=== PATIENT | male | born 1940 ===

== ENCOUNTER 2020-11-19 13:39 | Inpatient (IN) | payer MEDICARE, OTHER ==
[~2020-11-19] VITALS: Ht 182 cm; Wt 82.0 kg
[2020-11-20] MEDS ORDERED: MELATONIN 3 MG TABLET PO PRN (09:30)
[2020-11-20] MEDS ORDERED: LACTULOSE SYRUP 10GM/15ML (ENULOSE) 30ML UDC PO PRN (09:30)
[2020-11-20] MEDS ORDERED: LOPERAMIDE 2 MG (IMODIUM) TABLET PO PRN (09:30)
[2020-11-20] MEDS ORDERED: diphenhydrAMINE 25 MG TAB (BENADRYL) PO PRN (09:30)
[2020-11-20] MEDS ORDERED: DOCUSATE SODIUM 100 MG (COLACE) CAP PO PRN (09:30)
[2020-11-20] MEDS ORDERED: ONDANSETRON 4 MG (ZOFRAN) ORAL DISSOLVE TAB PO PRN (09:30)
[2020-11-20] MEDS ORDERED: FLEET ENEMA ADULT 1 EA BTL PR PRN (09:30)
[2020-11-20] MEDS ORDERED: CALCIUM CARBONATE 500 MG (TUMS) TAB.CHEW PO PRN (09:30)
[2020-11-20] MEDS ORDERED: ACETAMINOPHEN 500 MG TAB (TYLENOL) PO PRN (09:30)
[2020-11-20] MEDS ORDERED: PHEN177S41 MM (10:46)
[2020-11-20] MEDS ORDERED: SILD20TA PO (10:46)
[2020-11-20] MEDS ORDERED: UBID200C31 PO (10:46)
[2020-11-20] MEDS ORDERED: FURO20TA4 PO (10:46)
[2020-11-20] MEDS ORDERED: ACET325C7 NG (10:46)
[2020-11-20] MEDS ORDERED: IPRA3AMP31 IH (10:46)
[2020-11-20] MEDS ORDERED: PANT40TA2 PO (10:46)
[2020-11-20] MEDS ORDERED: ENOX100D4 SQ (10:46)
[2020-11-20] MEDS ORDERED: ROFL250T NG (10:46)
[2020-11-20] MEDS ORDERED: MELA5TAB14 PO (10:46)
[2020-11-20] MEDS ORDERED: DILT30TA NG (10:46)
[2020-11-20] MEDS ORDERED: FOLI0.4T2 PO (10:46)
[2020-11-20] MEDS ORDERED: PRD10T PO (10:46)
[2020-11-20] MEDS ORDERED: LACT1CAP76 PO (10:46)
[2020-11-20] MEDS ORDERED: ATOR20TA66 PO (10:46)
[2020-11-20] MEDS ORDERED: CYAN-41 NG (10:46)
[2020-11-20] MEDS ORDERED: SENN-234 PO (10:46)
[2020-11-20] MEDS ORDERED: ATOR10TA66 PO (10:51)
--- NOTE | 2020-11-20 10:52 | NUR ---
THE MED REC HAS BEEN ENTERED USING THE DISCHARGE ORDERS FROM [facility]. AFTER MEDICATIONS ARE CONTINUED (AND THE PT IS SETTLED) I WILL SPEAK WITH THE PT AND MAKE CHANGES TO THE MED REC/NOTES NEEDED Addendum: 11/25/20 at 1520 by KEKE CORRALES [facility] I SPOKE WITH THE PATIENT'S SHABANA AND WENT THROUGH THE EXTERNAL MED HISTORY TO COMPLETE THIS MED REC. MEDICATIONS THAT HAVE BEEN REMOVED DUE TO THE PATIENT NOT TAKING THEM PRIOR TO [facility]: VITAMIN B-12 DILTIAZEM ENOXAPARIN FOLIC ACID FUROSEMIDE IPRATROPIUM/ALBUTEROL NEBS LACTOBACILLUS PROBIOTIC MELATONIN PANTOPRAZOLE CHLORASEPTIC SPRAY PREDNISONE ROFLUMILAST SENNOSIDES SILDENAFIL UBIDECARENONE MEDICATIONS THAT HAVE BEEN ADDED: ELIQUIS SIMVASTATIN DOXAZOSIN DOCUSATE SODIUM METHYLPREDNISOLONE PROMETHAZINE SYRUP ALBUTEROL INH PT GOT METHYLPREDNISOLONE AND PROMETHAZINE SYRUP ON 09/23/2020 BUT WAS ONLY ABLE TO TAKE ONE DOSE OF EACH BEFORE BEING ADMITTED INTO THE HOSPITAL.
--- NOTE | 2020-11-20 11:10 | NUR ---
JOJO COLONNINOSKADavian admitted to room 229-1, with an admitting diagnosis of IMMOBILITY, on 11/20/20 from [facility] via AMBULANCE/STRETCHER, accompanied by STAFF.JOJO GUZMAN introduced to surroundings, call light, bed controls, phone, TV, temperature control, lights, meal times, smoking policy, visitor policy, side rail policy, bathrooms and showers. Patient Rights given to patient in the handbook.JOJO GUZMAN verbalizes understanding that [facility] is not responsible for the loss or damage to any personal effects or valuables that are kept in the patients posession during their hospitalization. The following Patient Care Plans were discussed with the PT: Discharge Planning, PAIN CONTROL,TESTS AND PROCEDURES AND THERAPY, and PT/OT/ST. JOJO GUZMAN verbalizes understanding of Interdisciplinary Patient Education. Patient and/or family were informed about the Rapid Response Team and its purpose. Patient received Patient Rights Booklet, which includes Privacy Act Statement and Data Collection Information Summary.
[2020-11-20 11:42] VITALS: BP 102/61
[2020-11-20 12:27] VITALS: BP 102/61
--- NOTE | 2020-11-20 12:52 | Physical Therapy Evaluation ---
PT Evaluation-General Medical Diagnosis Admission Date Nov 20, 2020 at 11:10 Medical Diagnosis: debility, covid 19 Onset Date: Nov 20, 2020 Therapy Diagnosis Therapy Diagnosis: impaired mobility, strength, endurance Precautions Precautions/Isolations: Droplet Isolation Referral Physician: Johana Saxena DO Reason for Referral: Evaluation/Treatment Medical History Additional Medical History 09/13 diagnosed COVID+, admitted to hospital ARF with hypoxia, PNA, AFib, and malnutrition Social History Home: Single Level Current Living Status: Spouse Entry Into Home: Level Entry Prior Prior Level of Function SCALE: Activities may be completed with or without assistive devices. 0-Zqiqogwpgz-erhvdxh completes the activity by him/herself with no assistance from a helper. 5-Set-up or Clean-up Assistance-helper sets up or cleans up; patient completes activity. [place] assists only prior to or following the activity. 4-Supervision or Touching Assistance-helper provides verbal cues and/or touching/steadying and/or contact guard assistance as patient completes activity. Assistance may be provided throughout the activity or intermittently. 3-Partial/Moderate Assistance-helper does LESS THAN HALF the effort. [place] lifts, holds or supports trunk or limbs, but provides less than half the effort. 2-Substantial/Maximal Assistance-helper does MORE THAN HALF the effort. [place] lifts or holds trunk or limbs and provides more than half the effort. 8-Mnegvhstb-qhnyew does ALL the effort. Patient does none of the effort to complete the activity. Or, the assistance of 2 or more helpers is required for the patient to complete the activity. If activity was not attempted, code reason: 7-Patient Refused. 9-Not Applicable-not attempted and the patient did not perform the activity before the current illness, exacerbation or injury. 10-Not Attempted due to Environmental Limitations-(lack of equipment, weather restraints, etc.). 88-Not Attempted due to Medical Conditions or Safety Concerns. Bed Mobility: 6 Transfers (B,C,W/C): 6 Gait: 6 Stairs: 6 Indoor Mobility (Ambulation): Independent Stairs: Independent PT Evaluation-Current Subjective Patient in bed pre tx, agrees to PT, no complaints of pain, will be co-treating with OT due to poor patient mobility, strength, endurance, decreased oxygen with activity, safety and reduce risk of falls, coordinate UE and LE during activity. Pt/Family Goals "to get stronger" Objective Patient Orientation: Person, Place, Situation Attachments: Oxygen, Mejia Catheter ROM/Strength ROM Lower Extremities WNL Strength Lower Extremities LLE (hip flexion 2/5, knee flexion 3/5, knee extension 3-/5, dorsiflexion 3/5), RLE (hip flexion 2/5, knee flexion 3/5, knee extension 3-/5, dorsiflexion 3/5) Sensory Vision: Wears Glasses Hearing: Functional Sensation Right Lower Extremit: Intact Sensation Left Lower Extremity: Intact Transfers Roll Left & Right (QC): 3 Sit to Lying (QC): 3 Lying to Sitting/Side of Bed(Q: 3 Sit to Stand (QC): 2 Chair/Rmg-vc-Glqdb Xfer(QC): 2 Toilet Transfer (QC): 2 Car Transfer (QC): 2 Patient can perform bed mobility with min assist, supine <-> sit mod assist, sit <-> stand max assist, transfers max assist, car transfer max assist. Cues for hand placement and positioning, tries to wrap arms around therapist when performing transfers. Gait Does the Patient Walk?: No and Walking Goal IS indicated Walk 10 feet (QC): 88 Walk 50 ft with 2 Turns(QC): 88 Walk 150 ft (QC): 88 Walking 10ft/uneven surface-QC: 88 Wheelchair Training Does the Pt Use a Wheelchair?: Yes Wheel 50 ft with 2 turns (QC): 4 Wheel 150 ft (QC): 88 Type of Wheelchair: Manual Stairs 1 Step (curb) (QC): 88 4 Steps (QC): 88 12 Steps (QC): 88 Balance Sitting Static: Fair Sitting Dynamic: Fair Standing Static: Poor Standing Dynamic: Poor Picking up an Object (QC): 88 Treatment bathing/dressing. PT performed bed mobility and transfers, WC mobility, standing in parallel bars, assist with positioning during bathing and dressing, OT performed bathing and dressing, UE positioning and safety during activity. Assessment/Needs Patient has impaired mobility, strength, endurance. Patient in bed post tx with nurse call, phone, tray, all needs met. Patient is non-ambulatory at this time. Rehab Potential: Fair PT Short Term Goals Short Term Goals Time Frame: Nov 27, 2020 Roll Left & Right: 3 Sit to lyin Lying to sitting on side of be: 3 Sit to stand: 3 Chair/jxr-mr-jukgf transfer: 3 Walk 10 feet: 3 PT Corporate Travel Counselor Goals Senior Living Goals PT Senior Living Goals Time Frame: Dec 11, 2020 Roll Left & Right (QC): 4 Sit to Lying (QC): 4 Lying-Sitting on Side/Bed(QC): 4 Sit to Stand (QC): 4 Chair/Kah-kx-Bsqyh Xfer(QC): 4 Toilet Transfer (QC): 4 Car Transfer (QC): 3 Does the Patient Walk: Yes Walk 10 feet (QC): 3 Walk 50ft with 2 Turns (QC): 3 Walk 150 ft (QC): 88 Walking 10ft on Uneven Surface: 3 1 Step (curb) (QC): 3 4 Steps (QC): 88 12 Steps (QC): 88 Picking up an Object (QC): 88 Wheel 50 feet with 2 turns (QC: 6 Wheel 150 feet: 6 PT Plan Problem List Problem List: Activity Tolerance, Functional Strength, Safety, Balance, Gait, Transfer, Bed Mobility, ROM Treatment/Plan Treatment Plan: Continue Plan of Care Treatment Plan: Bed Mobility, Education, Functional Activity Leti, Functional Strength, Group Therapy, Gait, Safety, Therapeutic Exercise, Transfers Treatment Duration: Dec 11, 2020 Frequency: Modified Program (IRF) Estimated Hrs Per Day: 1 hour per day Patient and/or Family Agrees t: Yes Due to a covid 19 viral infection, the patinet has deficits that warrant inpatient acute rehab. The patient will clearly benefit from intensive PT and OT, however, due to the patient's observed endurance and therapy considerations, he may not be able to tolerate the full 3 hours of scheduled therapy. Therefore, he will be scheduled for as much therapy as he can tolerate with intentional rest breaks, shortened sessions, including providing therapy across 6 to 7 days. As the patient tolerates, the intensity, frequency, and duration of his therapy program will be increased. Safety Risks/Education Patient Education: Transfer Techniques, Correct Positioning, W/C Management, Safety Issues Teaching Recipient: Patient Teaching Methods: Demonstration, Discussion Response to Teaching: Reinforcement Needed Discharge Recommendations Plan Patient will perform bed mobility and transfer training, balance and endurance training, functional strengthening, stair training, gait training, and education, to improve functional mobility and independence at home. Therapy Discharge Recommendati: Home & Family Time/GCodes Time In: 1110 Time Out: 1200 Total Billed Treatment Time: 40 Total Billed Treatment 1 visit EVM 10' FA 30' PT eval from [id number], OT eval from [id number], co-treat from [id number] CULLEN WORTHINGTON PT Nov 20, 2020 12:52
[2020-11-20 13:10] VITALS: BP 102/61
[2020-11-20] MEDS ORDERED: PHENOL MM PRN (13:15)
[2020-11-20] MEDS ORDERED: SENNOSIDES 8.6 MG (SENOKOT) TAB PO PRN (13:15)
[2020-11-20] MEDS ORDERED: NON-FORMULARY MEDICATION 1 EA EA (Acetaminophen (Tylenol) 650 MG) NG PRN (13:15)
--- NOTE | 2020-11-20 13:15 | PM&R Post Admission Assessment ---
PM&R Date of Visit: Nov 20, 2020 Time of Visit: 13:15 History of Present Illness CC: Critical illness myopathy HPI: This is an 80yoWM who presented to the IRF from [place] where [place] [facility] [place]20 with dyspnea after diagnosed with COVID-19 on 09/13/20. He remained on Vapotherm but then was intubated and maintained on vent for 2 weeks and is now on O2 at 5L/min but increasing to 7L/min on exertion. He received CVP and Remdesivir along with Levophed during that hospital stay. Patient did have episode of AF on 10/01/20 but that resolved on Cardizem drip and Dig bolus. Patient reports urinary retention and remains on a catheter in-dwelling so I did speak to Dr Marsh who has graciously accepted the consultation. Bowel incontinence is reported by the patient. Patient is very weak. 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 He smoked for 9 years and quit 60 yrs ago. Patient was admitted to the ARU during this COVID-19 emergency. The ARU is the best and most appropriate post-acute care setting for this patient at this current time. Patient meets IRF admission criteria, however will be unable to tolerate 3 hours of therapy/5 days per week. This patients individualized intensive rehabilitation plan is to receive 2 hours of therapy per day, by receiving 1 hour of PT and 1 hour of OT 5 out of 7 days per the patients week. As an interdisciplinary team, we will discuss this patients ability to tolerate an increase in the intensity of therapy to be provided throughout the patients stay. Past Mhprdzs-Zdbjbp-Nvoups Hx Past Med/Social Hx: Reviewed Nursing Past Med/Soc Hx, Reviewed and Corrections made Patient Social History Marrital Status: Employed/Student: retired Alcohol Use: Denies Use Smoking Status: Former Smoker (briefly) Recent Foreign Travel: No Contact w/other who traveled: No Recent Infectious Disease Expo: No Past Medical History Respiratory: Pneumonia COVID-19 09/13/20 Cardiac: Atrial Fibrillation (10/01/20 when intubated) Genitourinary: Benign Prostatic Hyperpl urinary retention Prior Level of Function Bed Mobility: 6 Transfers: 6 Gait: 6 Stairs: 6 Indoor Mobility (Ambulation): Independent Stairs: Independent Current Level of Fuctioning Roll Left to Right: 3 Sit to Lyin Lying to Sitting/Side of Bed: 3 Sit to Stand: 2 Chair/Yli-nq-Whjzp Xfer: 2 Car Transfer: 2 Does the Patient Walk: No and Walking Goal IS indicated Walk 10 feet: 88 Walk 50 ft with 2 Turns: 88 Walk 150 ft: 88 Walking 10ft on uneven surface: 88 Does the Pt Use a Wheelchair: Yes Wheel 50 ft with 2 turns: 4 Wheel 150 ft: 88 Type of Wheelchair: Manual 1 Step (curb): 88 4 Steps: 88 12 Steps: 88 Picking up an Object: 88 PM&R Allergy/Meds/Data Review Allergies Coded Allergies: No Allergy Information Available (Unverified , 11/20/20) Home Medications Scheduled Atorvastatin Calcium (Atorvastatin Calcium), 20 MG PO DAILY, (Reported) Cyanocobalamin (Vitamin B-12) (Vitamin B-12), 1,000 MCG NG DAILY, (Reported) Diltiazem HCl (Diltiazem HCl), 30 MG NG TID, (Reported) Enoxaparin Sodium (Enoxaparin Sodium), 94 MG SQ BID, (Reported) Folic Acid (Folic Acid), 1.2 MG PO DAILY, (Reported) Furosemide (Furosemide), 40 MG PO DAILY, (Reported) Ipratropium/Albuterol Sulfate (Iprat-Albut 0.5-3(2.5) mg/3 ml), 3 ML IH QID, (Reported) Lactobacillus Acidophilus/Pect (Acidophilus-Pectin Capsule), 1 EACH PO BID, (Re ported) Melatonin (Melatonin), 5 MG PO HS, (Reported) Pantoprazole Sodium (Protonix), 40 MG PO DAILY, (Reported) Prednisone (Prednisone), 30 MG PO DAILY, (Reported) Roflumilast (Daliresp), 250 MCG NG DAILY, (Reported) Sildenafil Citrate (Revatio), 20 MG PO TID, (Reported) Ubidecarenone (Coenzyme Q-10), 200 MG PO DAILY, (Reported) Scheduled PRN Acetaminophen (Tylenol), 650 MG NG Q6H PRN for PAIN-MILD (1-4) OR TEMPATURE, (Reported) Phenol (Chloraseptic), 1 SPRAY MM QID PRN for SORE THROAT, (Reported) Sennosides (Senna), 8.6 MG PO DAILY PRN for CONSTIPATION-5TH LINE, (Reported) Discontinued Medications Atorvastatin Calcium (Atorvastatin Calcium), 20 MG PO DAILY, (Reported) Discontinued Reason: No Longer Taking Current Medications Current Medications Reviewed Review of Systems Constitutional: see HPI, malaise, weakness EENTM: no symptoms reported Respiratory: dyspnea on exertion, short of breath Cardiovascular: no symptoms reported Gastrointestinal: other (incontinence) Genitourinary: other (retention) Musculoskeletal: back pain Skin: no symptoms reported Psychiatric/Neurological: Anxiety, Depressed All Other Systems Reviewed Negative Unless Noted: Yes Physical Exam Physical Exam Vital Signs Vital Signs - First Documented 11/20/20 12:27 Temp 36.8 Pulse 95 Resp 20 B/P (MAP) 102/61 (75) Pulse Ox 3 O2 Delivery Nasal Cannula O2 Flow Rate 3.00 Capillary Refill : Height, Weight, BMI Height: '" Weight: lbs. oz. kg; 23.39 BMI Method: General Appearance: No Apparent Distress, WD/WN, Chronically ill, Thin Eyes: Bilateral Eye Normal Inspection, Bilateral Eye PERRL HEENT: PERRL/EOMI, Normal ENT Inspection, Pharynx Normal Neck: Full Range of Motion, Normal Inspection, Non Tender, Supple, Carotid Bruit Respiratory: Chest Non Tender, Lungs Clear, No Accessory Muscle Use, No Respiratory Distress, Decreased Breath Sounds Cardiovascular: Regular Rate, Rhythm, No Edema, No Gallop, No JVD, No Murmur, Normal Peripheral Pulses Gastrointestinal: Normal Bowel Sounds, No Organomegaly, No Pulsatile Mass, Non Tender, Soft Back: Normal Inspection, No CVA Tenderness, No Vertebral Tenderness Extremity: Normal Capillary Refill, Normal Inspection, Normal Range of Motion, Non Tender, No Calf Tenderness, No Pedal Edema Neurologic/Psychiatric: Alert, Oriented x3, No Motor/Sensory Deficits, Normal Mood/Affect, Motor Weakness (generalized 2/5 lower extremities, 3/5 upper extremities) Skin: Normal Color, Warm/Dry Lymphatic: No Adenopathy PM&R Medical Assessment & Plan REHAB/MEDICAL ASSESSMENT AND PLAN: REHAB IMPAIRMENT GROUP: Critical illness myopathy ETIOLOGIC DIAGNOSIS: Critical illness myopathy The comorbidities that impact the patients function and/or functional outcome by: advanced age, severe myopathy, urinary retention requiring catheter, bowel incontinence REHAB PLAN: The patient is being admitted to our comprehensive inpatient rehabilitation facility and can tolerate the intensity of service consisting of at least: 180 minutes of therapy a day, 5 out of 7 days a week Rehab treatment will consist of: PT OT will focus on regaining function in order to regain enough strength to ambulate and regain ADL's in order to return home. The patient/family has a good understanding of our discharge process and will benefit from an interdisciplinary inpatient rehabilitation program. The patient has potential to make improvement and is in need of at least two of the following multidisciplinary therapies including but not limited to physical, occupational, speech, and prosthetics and orthotics. Additionally the patient will need services from respiratory, nutritional services, wound care, psychology, etc. (Customize this to each patient). Given the patients complex condition and risk of further medical complications, rehabilitation services cannot be safely or effectively provided at a lower level of care such as a retirement facility. BARRIERS TO DISCHARGE: Advanced age with poor reserve ESTIMATED LOS: 14 days DISPOSITION: Home RELEVANT CHANGES SINCE PREADMISSION SCREENING: I have compared the patients medical and functional status at the time of the preadmission screening and there are: no changes PROGNOSIS: Guarded REHABILITATION GOALS: 1. PT OT will focus on regaining function in order to regain enough strength to ambulate and regain ADL's in order to return home. All the above goals were reviewed with the patient and he/she is in agreement. By signing this document, I acknowledge that I have personally performed a full physical examination on this patient within 24 hours of admission to this inpatient rehabilitation facility and have determined the patient to be able to tolerate the above course of treatment at an intensive level for a reasonable period of time. I will be completing a detailed individualized Plan of Care for this patient by day #4 of the patients stay based upon the Preadmission Screen, the Post-Admission Evaluation, and the therapy evaluations. Admission Dx/Comorbidities: (1) Myopathy ICD Codes: G72.9 - Myopathy, unspecified (2) COVID-19 ICD Codes: U07.1 - COVID-19 (3) Hypoxia ICD Codes: R09.02 - Hypoxemia (4) Urinary retention ICD Codes: R33.9 - Retention of urine, unspecified (5) Mejia catheter in place ICD Codes: Z97.8 - Presence of other specified devices (6) BPH (benign prostatic hyperplasia) ICD Codes: N40.0 - Benign prostatic hyperplasia without lower urinary tract symptoms (7) Bowel incontinence ICD Codes: R15.9 - Full incontinence of feces (8) Supplemental oxygen dependent ICD Codes: Z99.81 - Dependence on supplemental oxygen (9) Advanced age ICD Codes: R54 - Age-related physical debility (10) Frailty ICD Codes: R54 - Age-related physical debility Assessment/Plan Assessment and Plan Assess & Plan/Chief Complaint Assessment: Myopathy COVID-19 PNA Urinary retention Mejia cath in place Bowel incontinence Hypoxia O2 dependent BPH Frail Advanced age Plan: IRF protocol but 120 minutes per day to accommodate hypoxia at activity [place] meds Melatonin at night BARB COLLINS DO Nov 20, 2020 13:15
--- NOTE | 2020-11-20 13:27 | Occupational Therapy Eval ---
OT Evaluation-General/PLF Medical Diagnosis Admission Date Nov 20, 2020 at 11:10 Medical Diagnosis: critical illness myopathy Onset Date: Sep 13, 2020 Therapy Diagnosis Therapy Diagnosis: weakness, decreased ADL status Precautions Precautions/Isolations: Droplet Isolation Referral Physician: Johana Saxena DO Referral Reason: Evaluation/Treatment Medical History Current History 09/13 diagnosed COVID+, admitted to hospital ARF with hypoxia, PNA, AFib, and malnutrition. 09/28 intubated. Pt transferred to [facility] 11/20/2020 for continued medication management and skilled therapies. Social History Home: Single Level Current Living Status: Spouse Entry Into Home: Level Entry ADL-Prior Level of Function SCALE: Activities may be completed with or without assistive devices. 3-Pnnizryjwk-ybhvxwq completes the activity by him/herself with no assistance from a helper. 5-Set-up or Clean-up Assistance-helper sets up or cleans up; patient completes activity. [place] assists only prior to or following the activity. 4-Supervision or Touching Assistance-helper provides verbal cues and/or touching/steadying and/or contact guard assistance as patient completes activity. Assistance may be provided throughout the activity or intermittently. 3-Partial/Moderate Assistance-helper does LESS THAN HALF the effort. [place] lifts, holds or supports trunk or limbs, but provides less than half the effort. 2-Substantial/Maximal Assistance-helper does MORE THAN HALF the effort. [place] lifts or holds trunk or limbs and provides more than half the effort. 5-Hwdiqohgl-jvqzau does ALL the effort. Patient does none of the effort to complete the activity. Or, the assistance of 2 or more helpers is required for the patient to complete the activity. If activity was not attempted, code reason: 7-Patient Refused. 9-Not Applicable-not attempted and the patient did not perform the activity before the current illness, exacerbation or injury. 10-Not Attempted due to Environmental Limitations-(lack of equipment, weather restraints, etc.). 88-Not Attempted due to Medical Conditions or Safety Concerns. ADL PLOF Comments Pt independent with all ADLs and functional mobility at PLOF, without AD/AE. Self Care: Independent Functional Cognition: Independent DME/Equipment: Tub/Shower OT Current Status Subjective Pt agreeable to OT evaluation and PT/OT cotreat. Mental Status/Objective Patient Orientation: Person, Place, Time, Situation Attachments: Oxygen (3L) Current Glasses/Contacts: Yes Hearing Aids: No Dentures/Partials: No Hand Dominance: Right Upper Extremity ROM WFL Upper Extremity Coordination WFL Upper Extremity Sensation Pt denies tingling/numbness Upper Extremity Strength grossly 3/5 ADL-Treatment Eating (QC): 7 Oral Hygiene (QC): 7 Shower/Bathe Self (QC): 1 (Pt able to wash BUEs, chest, abdomen. Required assist with all other parts, assist x2.) Upper Body Dressing (QC): 3 (Mod A with doffing/donning dry chain puller shirt.) Lower Body Dressing (QC): 1 (assist x2, pt required assist with threading and pant hike) On/Off Footwear (QC): 1 (total assist) Toileting Hygiene (QC): 1 (based on clinical judgement, pt would require x2 assist with task, and assist with clothing management and hygiene) Other Treatments OT evaluation complete, then OT/PT cotreat due to skill of 2 clinicians required which a rehabilitation clerk could not perform in order to coordinate UE/LEs, and due to pt's limitations in strength, endurance, mobility, and ambulation. OT focused on UE placement, cues for sequencing and safety, and ADLs, PT focused on LE placement gross overall movements, and mobility. Pt transferred supine to sit EOB, then max A SPT to w/c. Pt self-propelled w/c to therapy gym, requiring freq uent restbreaks due to SOA. Pt completed x1 stand at parallel bars, max A sit to stand, with 2 therapist assist. Pt then taken back to his room, transferring to bed in order to complete sponge bath and dressing. Pt required frequent rest breaks throughout session, and cues with each transfer for proper hand placement. Post tx, pt laying in bed, call light in reach and all needs met. Education OT Patient Education: Correct positioning, Energy conservation, Modified ADL techniques, Progress toward Goal/Update tx plan, Purpose of tx/functional activities, Rehab process Teaching Recipient: Patient Teaching Methods: Discussion Response to Teaching: Verbalize Understanding OT Short Term Goals Short Term Goals Time Frame: Dec 11, 2020 Shower/bathe self: 4 Upper body dressin Lower body dressin OT Fdc Goals Floor Plan Adjuster Goals Time Frame: Dec 20, 2020 Eating (QC): 6 Oral Hygiene (QC): 6 Toileting Hygiene (QC): 6 Shower/Bathe Self (QC): 6 Upper Body Dressing (QC): 6 Lower Body Dressing (QC): 6 On/Off Footwear (QC): 6 Additional Goals: 1-Demonstrate ADL Tasks, 2-Verbalize Understanding, 3- ImproveStrength/Leti 1=Demonstrate adherence to instructed precautions during ADL tasks. 2=Patient will verbalize/demonstrate understanding of assistive devices/modifications for ADL. 3=Patient will improve strength/tolerance for activity to enable patient to perform ADL's. OT Education/Plan Problem List/Assessment Assessment: Decreased Activ Tolerance, Decreased UE Strength, Impaired Funct Balance, Impaired I ADL's, Impaired Self-Care Skills Discharge Recommendations Plan/Recommendations: Continue POC Treatment Plan/Plan of Care Treatment,Training & Education: Yes Patient would benefit from OT for education, treatment and training to promote independence in ADL's, mobility, safety and/or upper extremity function for ADL's. Plan of Care: ADL Retraining, Functional Mobility, Group Exercise/Act as Ind, UE Funct Exercise/Act Treatment Duration: Dec 20, 2020 Frequency: Modified Program (IRF) Estimated Hrs Per Day: 1 hour per day Rehab Potential: Fair Due to a COVID-19 viral infection, the patient has deficits that warrant inpatient acute rehab. The patient will clearly benefit from intensive PT and OT, however, due to the patient's observed endurance and therapy considerations, he may not be able to tolerate the full 3 hours of scheduled therapy. Therefore, he will be scheduled for as much therapy as he can tolerate with intentional rest breaks, shortened sessions, including providing therapy across 6 to 7 days. As the patient tolerates, the intensity, frequency, and duration of his therapy program will be increased. Time/GCodes Start Time: 11:20 Stop Time: 12:00 Total Time Billed (hr/min): 40 Billed Treatment Time OT eval [id number], Cotreat [id number] 1, EVM (10'), ADL (15'), FA (15') BRENDA BLANOC OT Nov 20, 2020 13:27
[2020-11-20] MEDS ORDERED: CHLORASEPTIC SPRAY 177 ML LIQUID MC PRN (13:30)
[2020-11-20] MEDS ORDERED: FLU QUAD HIGH DOSE 240 MCG/0.7 ML 2020-21 (FLUZONE) IM ONE (13:45)
--- NOTE | 2020-11-20 14:01 | Physical Therapy Daily Note ---
PT Daily Note-Current Subjective Patient in bed pre tx, agrees to PT, has no complaints of pain at rest. Will be co-treating with OT due to poor patient mobility, strength, endurance, balance, safety and decrease fall risk, coordinate UE and LE during activity. Appearance Paitent in bed post tx with nurse call, phone, tray, all needs met. Mental Status Patient Orientation: Person, Place, Situation Attachments: Oxygen, Mejia Catheter Transfers SCALE: Activities may be completed with or without assistive devices. 9-Ofvtxgsxja-cjmsdan completes the activity by him/herself with no assistance from a helper. 5-Set-up or Clean-up Assistance-helper sets up or cleans up; patient completes activity. [place] assists only prior to or following the activity. 4-Supervision or Touching Assistance-helper provides verbal cues and/or touching/steadying and/or contact guard assistance as patient completes activity. Assistance may be provided throughout the activity or intermittently. 3-Partial/Moderate Assistance-helper does LESS THAN HALF the effort. [place] lifts, holds or supports trunk or limbs, but provides less than half the effort. 2-Substantial/Maximal Assistance-helper does MORE THAN HALF the effort. [place] lifts or holds trunk or limbs and provides more than half the effort. 4-Dyaytpjnz-hlpgbr does ALL the effort. Patient does none of the effort to complete the activity. Or, the assistance of 2 or more helpers is required for the patient to complete the activity. If activity was not attempted, code reason: 7-Patient Refused. 9-Not Applicable-not attempted and the patient did not perform the activity before the current illness, exacerbation or injury. 10-Not Attempted due to Environmental Limitations-(lack of equipment, weather restraints, etc.). 88-Not Attempted due to Medical Conditions or Safety Concerns. Roll Left & Right (QC): 3 Practice bed mobility and rolling from side to side for changing and cleaning BM, has to roll from side to side a few times, also transfer from his bed to another air mattress bed for better pressure relief. Treatments PT performed bed mobility and rolling, OT performed cleaning and UE positioning. Assessment Current Status: Fair Progress Patient was able to roll with only min assist. PT Short Term Goals Short Term Goals Time Frame: Nov 27, 2020 Roll Left & Right: 3 Sit to lyin Lying to sitting on side of be: 3 Sit to stand: 3 Chair/lhy-ab-cbaey transfer: 3 Walk 10 feet: 3 PT Detention Goals Detention Goals PT Police Captain Goals Time Frame: Dec 11, 2020 Roll Left & Right (QC): 4 Sit to Lying (QC): 4 Lying-Sitting on Side/Bed(QC): 4 Sit to Stand (QC): 4 Chair/Gvd-jd-Dspvd Xfer(QC): 4 Toilet Transfer (QC): 4 Car Transfer (QC): 3 Does the Patient Walk: Yes Walk 10 feet (QC): 3 Walk 50ft with 2 Turns (QC): 3 Walk 150 ft (QC): 88 Walking 10ft on Uneven Surface: 3 1 Step (curb) (QC): 3 4 Steps (QC): 88 12 Steps (QC): 88 Picking up an Object (QC): 88 Wheel 50 feet with 2 turns (QC: 6 Wheel 150 feet: 6 PT Plan Problem List Problem List: Activity Tolerance, Functional Strength, Safety, Balance, Gait, Transfer, Bed Mobility, ROM Treatment/Plan Treatment Plan: Continue Plan of Care Treatment Plan: Bed Mobility, Education, Functional Activity Leti, Functional Strength, Group Therapy, Gait, Safety, Therapeutic Exercise, Transfers Treatment Duration: Dec 11, 2020 Frequency: Modified Program (IRF) Estimated Hrs Per Day: 1 hour per day Patient and/or Family Agrees t: Yes Safety Risks/Education Patient Education: Correct Positioning, Safety Issues Teaching Recipient: Patient Teaching Methods: Demonstration, Discussion Response to Teaching: Reinforcement Needed Time/GCodes Time In: 1330 Time Out: 1350 Total Billed Treatment Time: 20 Total Billed Treatment 1 visit FA 20CULLEN KOHLER PT Nov 20, 2020 14:01
--- NOTE | 2020-11-20 14:02 | Occupational Ther Daily Note ---
OT Current Status-Daily Note Subjective Pt alert, lying in bed. Pt agrees to therapy. No c/o pain. Mental Status/Objective Patient Orientation: Person, Place, Time, Situation Attachments: Mejia Catheter, IV, Oxygen ADL-Treatment Therapy Code Descriptions/Definitions Functional [place] Measure: 0=Not Assessed/NA 4=Minimal Assistance 1=Total Assistance 5=Supervision or Setup 2=Maximal Assistance 6=Modified [place] 3=Moderate Assistance 7=Complete IndependenceSCALE: Activities may be completed with or without assistive devices. 1-Upmpxjqsuz-odksqkz completes the activity by him/herself with no assistance from a helper. 5-Set-up or Clean-up Assistance-helper sets up or cleans up; patient completes activity. [place] assists only prior to or following the activity. 4-Supervision or Touching Assistance-helper provides verbal cues and/or touching/steadying and/or contact guard assistance as patient completes activity. Assistance may be provided throughout the activity or intermittently. 3-Partial/Moderate Assistance-helper does LESS THAN HALF the effort. [place] lifts, holds or supports trunk or limbs, but provides less than half the effort. 2-Substantial/Maximal Assistance-helper does MORE THAN HALF the effort. [place] lifts or holds trunk or limbs and provides more than half the effort. 4-Mlhmalfsz-guvshq does ALL the effort. Patient does none of the effort to complete the activity. Or, the assistance of 2 or more helpers is required for the patient to complete the activity. If activity was not attempted, code reason: 7-Patient Refused. 9-Not Applicable-not attempted and the patient did not perform the activity before the current illness, exacerbation or injury. 10-Not Attempted due to Environmental Limitations-(lack of equipment, weather restraints, etc.). 88-Not Attempted due to Medical Conditions or Safety Concerns. Other Treatment Co-treat with PT, skills of 2 clinicians required for skilled instruction and care due to extreme SOA with O2 levels below 80 with exertion, recovery breaks frequently required and decreased mobility. PT focusing on bed mobility and B LE strengthening. OT focusing on bed mobility and B UE strengthening. Pt has WNL AROM of B UE though weakness throughout. Pt dependent with bed mobility and functional mobility. After session, pt lying in bed with call light/phone in reach. All needs met in room. OT Short Term Goals Short Term Goals Time Frame: Dec 11, 2020 Shower/bathe self: 4 Upper body dressin Lower body dressin OT Hanger Goals Care Home Goals Time Frame: Dec 20, 2020 Eating (QC): 6 Oral Hygiene (QC): 6 Toileting Hygiene (QC): 6 Shower/Bathe Self (QC): 6 Upper Body Dressing (QC): 6 Lower Body Dressing (QC): 6 On/Off Footwear (QC): 6 Additional Goals: 1-Demonstrate ADL Tasks, 2-Verbalize Understanding, 3- ImproveStrength/Leti 1=Demonstrate adherence to instructed precautions during ADL tasks. 2=Patient will verbalize/demonstrate understanding of assistive devices/modifications for ADL. 3=Patient will improve strength/tolerance for activity to enable patient to perform ADL's. OT Education/Plan Problem List/Assessment Assessment: Decreased Activ Tolerance, Decreased UE Strength, Dependent Transfers, Impaired Bed Mobility, Impaired Coordination, Impaired Funct Balance, Impaired Self-Care Skills, Restricted Funct UE ROM Discharge Recommendations Plan/Recommendations: Continue POC Treatment Plan/Plan of Care Patient would benefit from OT for education, treatment and training to promote independence in ADL's, mobility, safety and/or upper extremity function for ADL's. Plan of Care: ADL Retraining, Functional Mobility, Group Exercise/Act as Ind, UE Funct Exercise/Act Treatment Duration: Dec 20, 2020 Frequency: At least 5 of 7 days/Wk (IRF) (COVID -19 waiver) Rehab Potential: Fair Time/GCodes Start Time: 13:30 Stop Time: 13:50 Total Time Billed (hr/min): 20 Billed Treatment Time 1 visit-FA 1 (20 min) VIOLET BACA Nov 20, 2020 14:02
--- NOTE | 2020-11-20 14:43 | ST Cognitive Linguistic Eval ---
Speech Evaluation-General Medical Diagnosis critical illness myopathy Onset Date: Sep 13, 2020 Therapy Diagnosis Therapy Diagnosis: Cognitive-communication Precautions Precautions: Aspiration Precautions/Isolations: Aspiration, Droplet Isolation, Standard Precautions Referral Referring Physician: Dr. Saxena Social History Current Living Status: Spouse Speech PLF-Current Status Prior Level of Function Patient lives at home with his in [place], [place] where he was independent for his daily needs. Subjective Patient was cooperative with the cognitive assessment. Language Eval: Auditory Comprehends Simple Yes/No Ques: Functional Indent/Objects Multiple Hatch: Functional Ident/Pics in Multiple Hatch: Functional Follows 1-Step Commands: Functional Follows Complex Directions: Functional Follows General Conversations: Functional Language Eval: Verbal Language Completes Spontaneous Greeting: Functional Produces Auto, Serial Info: Functional Imitates Simple Words/Phrases: Functional Word Finding: Functional Requests Basic Needs: Functional States Basic Personal Info: Functional Expresses Complex Ideas: Functional Objective Cognitive Domain Attention: WNL Memory: WNL Problem Solving: Functional Executive Functions: WNL Visuospatial Skills: WNL Composite Severity Rating: WNL Clock Drawing Severity Rating: WNL Objective Formal/Standardized Tests [facility] Mental Status ([facility]) Results 27/30, within normal range of function Oral Motor/Speech Production Within Normal Limits Impression Patient is a pleasant 80 y/o man who was admitted to the [facility] s/p COVID-19 since September 13, 2020. Patient was given the SLUMS at bedside with a score of 27/30 obtained. Patient's score is within normal range of function. Patient's diet level was also addressed with advance within the past two days. Patient states he is doing well with his current diet level. Patient does not require further ST services at this time. Speech Patient Assess Expression of Ideas/Wants: Expression (4) Understanding Verbal Content: Understands (4) Brief Interview-Mental Status: Yes Repetition of Three Words: Three (3) Temporal Orientation: Year: Correct (3) Temporal Orientation: Month: Accurate within 5 days(2) Temporal Orientation: Day: Correct (1) Recall : Wear to say "Sock": Yes, no cue required (2) Recall : Color: Yes, after cueing (1) Recall : Bed: Yes, no cue required (2) Memory/Recall Ability: Current season, That he or she is in a hsp/hsp unit Speech-Plan Patient/Family Goals Patient/Family Goals: Patient plans on returning to his home upon discharge. Treatment Plan Speech Therapy Treatment Plan: Discontinue ST Treatment Duration: Nov 20, 2020 Frequency: 1 time per week Estimated Hrs Per Day: .25 hour per day Rehab Potential: Fair Barriers to Learning: Patient's recent severe illness, age Pt/Family Agrees to Plan: Yes Safety Risks/Education Teaching Recipient: Patient Teaching Methods: Discussion Response to Teaching: Verbalize Understanding Education Topics Provided: Safety within his room and with oral intake Time Speech Therapy Time In: 14:30 Speech Therapy Time Out: 14:45 Total Billed Time: 15 Billed Treatment Time 1, SPSNDCOMP PROSPER Soto Nov 20, 2020 14:43
[2020-11-20] MEDS: RT-ALBUTEROL/IPRATROPIUM 3 ML (DUONEB) VIAL IH SCH ×2 (15:48→21:26)
--- NOTE | 2020-11-20 16:24 | CONSULTATION REPORT ---
DATE OF SERVICE: 11/20/2020 ATTENDING PHYSICIAN: Dr. Saxena. SUMMARY: An 80-year-old white man admitted to the rehab unit after recovery for his COVID that caused respiratory failure. He has a Mejia catheter apparently failed trial of voiding in the institution before coming here. He is not on any medication for bladder or prostate. He denies any voiding symptoms in the past except for some nocturia x2-3, has never used any medicine for prostate or bladder. Has never had surgery on the prostate or bladder. IMPRESSION: Urinary retention. PLAN: We will start him on Flomax 0.4 mg daily with at least 3 days, then we will give him trial of voiding probably next Wednesday. Job ID: [id number] DocumentID: [id number] Dictated Date: 11/20/2020 15:47:00 Straw Hat Brim Raiser Operator Date: 11/20/2020 16:23:36 Dictated By: DENTON MA MD
[2020-11-20] MEDS: SILDENAFIL 20 MG (REVATIO) TAB NON-FORMULARY PO SCH ×2 (16:42→21:25)
[2020-11-20 17:14] VITALS: BP 102/66
[2020-11-20] MEDS: TAMSULOSIN 0.4 MG (FLOMAX) CAP PO SCH (19:16)
[2020-11-20] MEDS: polyethylene glycoL POWDER 17 GM (MIRALAX) PACK PO SCH (19:21)
--- NOTE | 2020-11-20 20:50 | Individualized Plan of Care ---
Individualized Plan of Care Rehab Nursing IPOC Order Admission Date Nov 20, 2020 at 11:10 Current Orders Orders Admission Order(Inpt,Obs,Sdc) (11/20/20 09:29) Vital Signs: Per Unit Policy ( 08,16,00 (11/20/20 09:29) Cecilio Bateman 09,21 (11/20/20 09:29) Sequential Compression Device Q4H (11/20/20 09:29) Roller Embosser-Inpt Rehab Con (11/20/20 09:29) Rehab Nursing Orders-Ipoc (11/20/20 09:29) Physical Therapy Rehab Orders (11/20/20:29) Occupational Therapy Rehab Ord (11/20/20:29) Speech Therapy Rehab Orders (11/20/20:) Cbc With Automated Diff (11/21/20 06:00) Comprehensive Metabolic Panel (11/21/20 06:00) Intake & Output 06,14,22 (11/20/20 09:29) Precautions (Aru) (11/20/20 09:29) Weekly Weight WEEK (11/20/20 09:29) Rehab-Intensity Of Therapy (11/20/20 09:29) Initiate Admission Nursing Pro .admission (11/20/20 09:29) Acetaminophen Tablet (Tylenol Tablet) (11/20/20 09:30) Alprazolam Tablet (Xanax Tablet) (11/20/20 09:30) Calcium Carbonate Chew Tablet (Antacid C (11/20/20 09:30) Diphenhydramine Tablet (Benadryl Tablet) (11/20/20 09:30) Docusate Sodium Capsule (Colace Capsule) (11/20/20 21:00) Docusate Sodium Capsule (Colace Capsule) (11/20/20 09:30) Bisacodyl Suppository (Dulcolax Supposit (11/20/20 09:30) Lactulose Oral Solution (Enulose Oral So (11/20/20 09:30) Na Phos/Na Biphos Enema (Fleet Enema Trevon (11/20/20 09:30) Guaifenesin/Codeine Syrup (Robitussin Ac (11/20/20 09:30) Loperamide Tablet (Imodium Tablet) (11/20/20 09:30) Melatonin Tablet (Melatonin Tablet) (11/20/20 09:30) Polyethylene Glycol Powder Pkt (Miralax (11/20/20 21:00) Ondansetron Oral Dissolve Tab (Zofran (11/20/20 09:30) Senna S Tablet (Senokot S Tablet) (11/20/20 21:00) Admission Arrival Bed Request (11/20/20 11:22) Isolation Central Supply Req (11/20/20 11:33) Dys2 Mechanically Altered (11/20/20 Lunch) Consult Urology (11/20/20 13:03) Atorvastatin Tablet (Lipitor Tablet) (11/21/20 09:00) Cyanocobalamin Tablet (Vitamin B-12 Tabl (11/21/20 09:00) Diltiazem Tablet (Cardizem Tablet) (11/20/20 21:00) Furosemide Tablet (Lasix Tablet) (11/21/20 09:00) Albuterol/Ipra Inhalation Soln (Duoneb I (11/20/20 15:00) Lactobacillus Acidophilus Cap (Acidophil (11/20/20 21:00) Pantoprazole Tablet (Protonix Tablet) (11/21/20 09:00) Prednisone Tablet (Deltasone Tablet) (11/21/20 08:00) Sennosides Tablet (Senokot Tablet) (11/20/20 13:15) (Nf) Acetaminophen (Tylenol) (11/20/20 13:15) (Nf) Folic Acid (11/21/20 09:00) (Nf) Melatonin (11/20/20 21:00) (Nf) Phenol (Chloraseptic) (11/20/20 13:15) (Nf) Roflumilast (Daliresp) (11/21/20 09:00) (Nf) Sildenafil Citrate (Revatio) (11/20/20 21:00) (Nf) Ubidecarenone (Coenzyme Q-10) (11/21/20 09:00) Melatonin Tablet (Melatonin) (11/20/20 21:00) Sildenafil Tablet (Non-Form) (Revatio Ta (11/20/20 14:00) Phenol Throat Griffin (Chloraseptic Griffin) (11/20/20 13:30) Acetaminophen Oral Solution (Tylenol Ora (11/20/20 13:45) Folic Acid Tablet (Folic Acid Tablet) (11/21/20 09:00) Roflumilast Tablet (Daliresp Tablet) (11/21/20 09:00) Melatonin Tablet (Melatonin) (11/20/20 21:00) Flu Quad High Dose 9167-7290 (Fluzone Hi (11/20/20 13:45) Ambulate 08,, (11/20/20 14:11) Sequential Compression Device Q4H (11/20/20 14:11) Dvt/Vte Risk - Notifiy Physici Q4H (11/20/20 14:11) Enoxaparin Injection (Lovenox Injection) (11/20/20 21:00) Patient Visit (11/20/20 ) Pt Eval Moderate Complexity (11/20/20 ) Functional Activities, Ea 15 (11/20/20 ) Patient Visit (11/20/20 ) Speech Sound Lang Comp (11/20/20 ) Tamsulosin Capsule (Flomax Capsule) (11/20/20 18:00) Echo W Doppler/Color Flow (11/20/20 20:46) Consult Cardiology (11/20/20 20:46) Ekg Tracing (11/21/20 07:00) Rehab Nursing Orders: Ongoing Assess. of Cognitive Status, Ongoing Assess. of Function Status, Bladder Management, Bladder Scan, Bladder Training, Bowel Management, Bowel Training, Disease Management & Educaiton, DVT Prophylaxis, Fall Prevention, Fluid/Electrolyte/Nutrition Mgmt, Infection Prevention, Medication Management & Education, Management of Risks & Complications, Management of Skin Intergrity, Nutrition Management, Pain Management, Patient/Family Support, Safety Management, Swallow Precautions Intensity of Therapy to be met Patient to be seen: Min.3h per day/5 of 7d PT IPOC Problem List: Activity Tolerance, Functional Strength, Safety, Balance, Gait, Transfer, Bed Mobility, ROM Treatment Plan: Continue Plan of Care Bed Mobility, Education, Functional Activity Leti, Functional Strength, Group Therapy, Gait, Safety, Therapeutic Exercise, Transfers Treatment Duration: Dec 11, 2020 Frequency: Modified Program (IRF) Estimated Hrs Per Day: 1 hour per day OT IPOC Problems: Decreased Activ Tolerance, Decreased UE Strength, Dependent Transfers, Impaired Bed Mobility, Impaired Coordination, Impaired Funct Balance, Impaired Self-Care Skills, Restricted Funct UE ROM OT Treatment, Training and Edu: Yes Plan of Care: ADL Retraining, Functional Mobility, Group Exercise/Act as Ind, UE Funct Exercise/Act Treatment Duration: Dec 20, 2020 Frequency: Modified Program (IRF) Estimated Hrs Per Day: [address] IPOC Speech Therapy Treatment Plan: Discontinue ST Treatment Duration: Nov 20, 2020 Frequency: 1 time per week Estimated Hrs Per Day: .25 hour per day Roller Embosser/Case Mgmt Roller Embosser/Case Managemen: Discharge Planning Dietitian/Property Economist Dietitian/Property Economist to monitor nutritional status and make changes and/or recommendations as needed and work with speech pathology on dietary upgrades as the occur. 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 will be at high risk for de compensation Medical Issues: Bowel/Bladder Function, DVT Prophylaxis, Falls Precautions, Fluid/Electrolyte/Nutrition Balance, Infection Protection, Pain Management, Wound Care Brief Synthesis of Preadmission Screen, Post-Admission Evaluation, and Therapy Evaluations: PT OT will focus on energy conservation along with regaining ambulatory skills and ability to manage ADL's in order to return home Medical Prognosis: Fair Anticipated Length of Stay: 14 days This patients individualized intensive rehabilitation plan is to receive 2 hours of therapy per day, by receiving 60 min of PT and 60 min of OT, 5 out of 7 days per the patients week. This patient was independent pre- morbidly. Due to a COVID-19 viral infection, the patient now has deficits that warrant inpatient Acute Rehab. The patient will clearly benefit from intensive PT, OT, HEAVY EQUIPMENT OPERATOR/PAVER; however, due to patients observed endurance and therapy considerations during the COVID-19 pandemic, including PPE optimization, therapy will receive 60 min of PT and 60 min of OT, 5 out of 7 days per the patients week. The patient also needs 24 hour Rehab Nursing care and Rehab Physician management for active medical issues including for example - COVID-19 respiratory symptom recovery and hypoxemia. From the initial therapy evaluations the patient has been found to require Max Assist with ADLs, Max Assist with transfers and Min Assist with bed mobility (ambulation not tested at this time due to medical condition and safety concerns BARB COLLINS DO Nov 20, 2020 20:50
[2020-11-20] MEDS ORDERED: MELATONIN 10 MG TABLET PO SCH (21:00)
[2020-11-20] MEDS ORDERED: NON-FORMULARY MEDICATION 1 EA EA (Melatonin 5 MG) PO SCH (21:00)
[2020-11-20] MEDS ORDERED: SILDENAFIL CITRATE 20 MG PO SCH (21:00)
[2020-11-20] MEDS: ENOXAPARIN 80 MG/0.8 ML (LOVENOX) SYR SC SCH (21:25)
[2020-11-20] MEDS: MELATONIN 10 MG TABLET PO SCH (21:26)
[2020-11-20] MEDS: DOCUSATE SODIUM 100 MG (COLACE) CAP PO SCH (21:27)
[2020-11-20] MEDS: SENNA W/DOCUSATE (SENOKOT S) TABLET PO SCH (21:27)
[2020-11-20] MEDS: LACTOBACILLUS ACIDOPHILUS (PROBIOTIC) CAPSULE PO SCH (21:27)
[2020-11-21 05:44] LABS: BASOPHILS % (AUTO) 0 % (0-10); EOSINOPHILS % (AUTO) 0 % (0-10); HEMATOCRIT 31 % (40-54); HEMOGLOBIN 9.7 g/dL (13.3-17.7); LYMPHOCYTES # (AUTO) 1.7 10^3/uL (1.0-4.0); LYMPHOCYTES % (AUTO) 17 % (12-44); MEAN CORPUSCULAR HEMOGLOBIN 29 pg (25-34); MEAN CORPUSCULAR HGB CONC 32 g/dL (32-36); MEAN CORPUSCULAR VOLUME 92 fL (80-99); MEAN PLATELET VOLUME 9.4 fL (9.0-12.2); MONOCYTES # (AUTO) 0.4 10^3/uL (0.0-1.0); MONOCYTES % (AUTO) 4 % (0-12); NEUTROPHILS # (AUTO) 7.5 10^3/uL (1.8-7.8); NEUTROPHILS % (AUTO) 78 % (42-75); PLATELET COUNT 193 10^3/uL (130-400); WHITE BLOOD COUNT 9.6 10^3/uL (4.3-11.0)
[2020-11-21 05:57] LABS: ALANINE AMINOTRANSFERASE 21 U/L (0-55); ALBUMIN 2.7 GM/DL (3.2-4.5); ALKALINE PHOSPHATASE 94 U/L (40-136); BILIRUBIN,TOTAL 0.6 MG/DL (0.1-1.0); BUN/CREATININE RATIO 29; CALCIUM 8.2 MG/DL (8.5-10.1); CARBON DIOXIDE 24 MMOL/L (21-32); CHLORIDE 101 MMOL/L (98-107); CREATININE SERUM 0.58 MG/DL (0.60-1.30); GFR ESTIMATED > 60; GLUCOSE 85 MG/DL (70-105); POTASSIUM 3.7 MMOL/L (3.6-5.0); SODIUM 134 MMOL/L (135-145); TOTAL PROTEIN 5.2 GM/DL (6.4-8.2)
[2020-11-21 06:00] VITALS: BP 95/59
--- NOTE | 2020-11-21 06:58 | PM&R Progress Note ---
Subjective HPI/CC On Admission Date Seen by Provider: Nov 21, 2020 Time Seen by Provider: 13:30 Subjective/Events-last exam 11/21/20: Had episode of hypotension 76/40 with symptoms when got to edge of bed so laid back down, Cardiology notified and given 500cc of IVF Patient is on a waiver due to COVID and hypoxia for slow therapy and only 120 minutes per day Cardizem CD 120mg now after changed by Dr Cisneros ECHO done Stopped Lasix Mejia cath remains in place Review of Systems General: Fatigue, Malaise Pulmonary: Dyspnea Objective Exam Vital Signs Vital Signs Date Time Temp Pulse Resp B/P (MAP) Pulse Ox O2 Delivery O2 Flow Rate FiO2 11/21/20 20:55 Nasal Cannula 3.00 11/21/20 16:18 37.0 89 16 103/61 (75) 97 Capillary Refill : Less Than 3 Seconds General Appearance: No Apparent Distress, WD/WN, Chronically ill, Thin HEENT: PERRL/EOMI, Normal ENT Inspection, Pharynx Normal Neck: Full Range of Motion, Normal Inspection, Non Tender, Supple, Carotid Bruit Respiratory: Chest Non Tender, Lungs Clear, No Accessory Muscle Use, No Respiratory Distress, Decreased Breath Sounds Cardiovascular: Regular Rate, Rhythm, No Edema, No Gallop, No JVD, No Murmur, Normal Peripheral Pulses Gastrointestinal: Normal Bowel Sounds, No Organomegaly, No Pulsatile Mass, Non Tender, Soft Back: Normal Inspection, No CVA Tenderness, No Vertebral Tenderness Extremity: Normal Capillary Refill, Normal Inspection, Normal Range of Motion, Non Tender, No Calf Tenderness, No Pedal Edema Neurologic/Psychiatric: Alert, Oriented x3, No Motor/Sensory Deficits, Normal Mood/Affect, Motor Weakness (generalized 2/5 lower extremities, 3/5 upper extremities) Skin: Normal Color, Warm/Dry Lymphatic: No Adenopathy Results/Procedures Lab Laboratory Tests 11/21/20 05:33 Patient resulted labs reviewed. FIM Transfers Therapy Code Descriptions/Definitions Functional [place] Measure: 0=Not Assessed/NA 4=Minimal Assistance 1=Total Assistance 5=Supervision or Setup 2=Maximal Assistance 6=Modified [place] 3=Moderate Assistance 7=Complete IndependenceSCALE: Activities may be completed with or without assistive devices. 8-Prvxdxwkug-qgdjxph completes the activity by him/herself with no assistance from a helper. 5-Set-up or Clean-up Assistance-helper sets up or cleans up; patient completes activity. [place] assists only prior to or following the activity. 4-Supervision or Touching Assistance-helper provides verbal cues and/or touching/steadying and/or contact guard assistance as patient completes activity. Assistance may be provided throughout the activity or intermittently. 3-Partial/Moderate Assistance-helper does LESS THAN HALF the effort. [place] lifts, holds or supports trunk or limbs, but provides less than half the effort. 2-Substantial/Maximal Assistance-helper does MORE THAN HALF the effort. [place] lifts or holds trunk or limbs and provides more than half the effort. 4-Ryyzsaujp-nsmzer does ALL the effort. Patient does none of the effort to complete the activity. Or, the assistance of 2 or more helpers is required for the patient to complete the activity. If activity was not attempted, code reason: 7-Patient Refused. 9-Not Applicable-not attempted and the patient did not perform the activity before the current illness, exacerbation or injury. 10-Not Attempted due to Environmental Limitations-(lack of equipment, weather restraints, etc.). 88-Not Attempted due to Medical Conditions or Safety Concerns. Roll Left to Right (QC): 3 Sit to Lying (QC): 3 Sit to Stand (QC): 2 Chair/Nxq-fo-Xguos Xfer(QC): 2 Car Transfer (QC): 2 Gait Training Does the Patient Walk?: No and Walking Goal IS indicated Walk 10 feet (QC): 88 Walk 50 ft with 2 Turns(QC): 88 Walk 150 ft (QC): 88 Walking 10ft/uneven surface-QC: 88 Wheelchair Training Does the Pt Use a Wheelchair?: Yes Wheel 50 ft with 2 turns (QC): 4 Wheel 150 ft (QC): 88 Type of Wheelchair: Manual Stair Training 1 Step (curb) (QC): 88 4 Steps (QC): 88 12 Steps (QC): 88 Balance Picking up an Object (QC): 88 ADL-Treatment Eating (QC): 7 Oral Hygiene (QC): 7 Shower/Bathe Self (QC): 1 (Pt able to wash BUEs, chest, abdomen. Required assist with all other parts, assist x2.) Upper Body Dressing (QC): 3 (Mod A with doffing/donning order puller shirt.) Lower Body Dressing (QC): 1 (assist x2, pt required assist with threading and pant hike) On/Off Footwear (QC): 1 (total assist) Toileting Hygiene (QC): 1 (based on clinical judgement, pt would require x2 assist with task, and assist with clothing management and hygiene) Assessment/Plan Assessment and Plan Assess & Plan/Chief Complaint Assessment: Myopathy COVID-19 PNA Urinary retention Mejia cath in place Bowel incontinence Hypoxia O2 dependent BPH Frail Advanced age Plan: IRF protocol but 120 minutes per day to accommodate hypoxia at activity Guffey meds Melatonin at night 11/21/: s/o IVF Monitor hypotension and hypoxia Appreciate Dr Blayne QUIJANO done Add Remeron for sleep with Melatonin (1) Myopathy (2) COVID-19 (3) Hypoxia (4) Urinary retention (5) Mejia catheter in place (6) BPH (benign prostatic hyperplasia) (7) Bowel incontinence (8) Supplemental oxygen dependent (9) Advanced age (10) Frailty BARB COLLINS DO Nov 21, 2020 06:58
[2020-11-21] MEDS: RT-ALBUTEROL/IPRATROPIUM 3 ML (DUONEB) VIAL IH SCH ×4 (07:40→21:50)
[2020-11-21] MEDS: LACTOBACILLUS ACIDOPHILUS (PROBIOTIC) CAPSULE PO SCH ×2 (08:20→21:02)
[2020-11-21] MEDS: CYANOCOBALAMIN 1,000 MCG (VITAMIN B-12) TABLET NG SCH (08:21)
[2020-11-21] MEDS: PANTOPRAZOLE 40 MG (PROTONIX) TAB PO SCH (08:23)
[2020-11-21] MEDS: ENOXAPARIN 80 MG/0.8 ML (LOVENOX) SYR SC SCH (08:23)
[2020-11-21] MEDS: FOLIC ACID 1 MG TAB PO SCH (08:23)
[2020-11-21] MEDS: predniSONE 10 MG TAB PO SCH (08:23)
[2020-11-21] MEDS: SENNA W/DOCUSATE (SENOKOT S) TABLET PO SCH ×2 (08:25→20:53)
[2020-11-21] MEDS: polyethylene glycoL POWDER 17 GM (MIRALAX) PACK PO SCH ×2 (08:25→20:53)
[2020-11-21] MEDS: DOCUSATE SODIUM 100 MG (COLACE) CAP PO SCH ×2 (08:26→20:53)
[2020-11-21] MEDS: ROFLUMILAST 500 MCG TAB (DALIRESP) NG SCH (08:50)
[2020-11-21] MEDS ORDERED: UBIDECARENONE 200 MG PO SCH (09:00)
[2020-11-21] MEDS ORDERED: FUROSEMIDE 20 MG (LASIX) TAB PO SCH (09:00)
[2020-11-21] MEDS ORDERED: ROFLUMILAST 250 MCG NG SCH (09:00)
[2020-11-21] MEDS ORDERED: FOLIC ACID PO SCH (09:00)
--- NOTE | 2020-11-21 09:02 | Physical Therapy Daily Note ---
PT Daily Note-Current Subjective Pt presents supine in bed upon arrival to room, agreeable to therapy treatment. Pt reports that he has a "catch" behind his L shoulder blade with coughing. Appearance Following session, pt supine in bed following session with call light and tray within reach. All needs met at this time. Mental Status Patient Orientation: Person, Situation Attachments: Oxygen (3L), Mejia Catheter Transfers SCALE: Activities may be completed with or without assistive devices. 4-Lntrzwqylv-mnxviqo completes the activity by him/herself with no assistance from a helper. 5-Set-up or Clean-up Assistance-helper sets up or cleans up; patient completes activity. [place] assists only prior to or following the activity. 4-Supervision or Touching Assistance-helper provides verbal cues and/or touching/steadying and/or contact guard assistance as patient completes activity. Assistance may be provided throughout the activity or intermittently. 3-Partial/Moderate Assistance-helper does LESS THAN HALF the effort. [place] lifts, holds or supports trunk or limbs, but provides less than half the effort. 2-Substantial/Maximal Assistance-helper does MORE THAN HALF the effort. [place] lifts or holds trunk or limbs and provides more than half the effort. 5-Jnsghdnub-adusnn does ALL the effort. Patient does none of the effort to complete the activity. Or, the assistance of 2 or more helpers is required for the patient to complete the activity. If activity was not attempted, code reason: 7-Patient Refused. 9-Not Applicable-not attempted and the patient did not perform the activity before the current illness, exacerbation or injury. 10-Not Attempted due to Environmental Limitations-(lack of equipment, weather restraints, etc.). 88-Not Attempted due to Medical Conditions or Safety Concerns. Roll Left & Right (QC): 3 Sit to Lying (QC): 2 Lying to Sitting/Side of Bed(Q: 2 Pt rolled 3x with Min A in bed to clean up. OT to clean up and complete dressing of UE and LE, pt dependent with these activities. Treatments Will be co-treating with OT due to poor patient mobility, strength, endurance, balance, safety and decrease fall risk, coordinate UE and LE during activity. Pt rolled x2 to clean up incontinent bowel, after this pt Max A to sit-EOB, pt SOB at EOB, O2 sats 85%, RN present who increased O2 to 3L. BP taken and sitting at EOB read 75/50. Pt returned to supine in bed and BP taken multiple more times with final reading 90/56 and O2 sats 93% on 3L. Pt then completed bed mobility again to clean up incontinent bowel and doff clothing. Pt ended session supine in bed with RN present in room. Assessment Current Status: Fair Progress Pt with decreased activity tolerance with low BP and decreased O2 sats with activity. Will continue to progress activity as pt tolerates. PT Short Term Goals Short Term Goals Time Frame: Nov 27, 2020 Roll Left & Right: 3 Sit to lyin Lying to sitting on side of be: 3 Sit to stand: 3 Chair/ptb-ea-mwexj transfer: 3 Walk 10 feet: 3 PT Tub Tender Goals Tub Tender Goals PT Long-Term Goals Time Frame: Dec 11, 2020 Roll Left & Right (QC): 4 Sit to Lying (QC): 4 Lying-Sitting on Side/Bed(QC): 4 Sit to Stand (QC): 4 Chair/Wla-bl-Fapuq Xfer(QC): 4 Toilet Transfer (QC): 4 Car Transfer (QC): 3 Does the Patient Walk: Yes Walk 10 feet (QC): 3 Walk 50ft with 2 Turns (QC): 3 Walk 150 ft (QC): 88 Walking 10ft on Uneven Surface: 3 1 Step (curb) (QC): 3 4 Steps (QC): 88 12 Steps (QC): 88 Picking up an Object (QC): 88 Wheel 50 feet with 2 turns (QC: 6 Wheel 150 feet: 6 PT Plan Problem List Problem List: Activity Tolerance, Functional Strength, Safety, Balance, Gait, Transfer, Bed Mobility, ROM Treatment/Plan Treatment Plan: Continue Plan of Care Treatment Plan: Bed Mobility, Education, Functional Activity Leti, Functional Strength, Group Therapy, Gait, Safety, Therapeutic Exercise, Transfers Treatment Duration: Dec 11, 2020 Frequency: Modified Program (IRF) Estimated Hrs Per Day: 1 hour per day Patient and/or Family Agrees t: Yes Time/GCodes Time In: 800 Time Out: 900 Total Billed Treatment Time: 60 Total Billed Treatment 1 visit FA x 4 (60') MEGHAN SALAZAR PT Nov 21, 2020 09:01
--- NOTE | 2020-11-21 09:02 | Occupational Ther Daily Note ---
OT Current Status-Daily Note Subjective Pt alert, lying in bed. Nrsg present in room throughout treatment due to pt's heart rate and BP, 120 average and 90/56. Pt agrees to therapy. Mental Status/Objective Patient Orientation: Person, Place, Time, Situation Attachments: Mejia Catheter, Oxygen (Initially 1L then increased to 3L) ADL-Treatment Co-treat with PT ([id number]) required skills of 2 clinicians due to poor patient mobility, strength, endurance, balance, safety and decrease fall risk, coordinate UE and LE during activity. PT focusing on bed mobility and strengthening. OT focusing on bed mobility and ADLs. Min A for rolling side to side and dependent for scooting up in bed. Pt dependent for lower body clothing and toileting. Pt incontinent of bowel, 2x's. Max A for upper body dressing. Using clinical judgment, pt requires set up for oral care. See Nrsg notes for BP and heart rate concerns throughout therapy. After session, pt lying in bed with call light/phone in reach. All needs met in room. Therapy Code Descriptions/Definitions Functional [place] Measure: 0=Not Assessed/NA 4=Minimal Assistance 1=Total Assistance 5=Supervision or Setup 2=Maximal Assistance 6=Modified [place] 3=Moderate Assistance 7=Complete IndependenceSCALE: Activities may be completed with or without assistive devices. 8-Ecljfbikuf-mcqxpws completes the activity by him/herself with no assistance from a helper. 5-Set-up or Clean-up Assistance-helper sets up or cleans up; patient completes activity. [place] assists only prior to or following the activity. 4-Supervision or Touching Assistance-helper provides verbal cues and/or touching/steadying and/or contact guard assistance as patient completes activity. Assistance may be provided throughout the activity or intermittently. 3-Partial/Moderate Assistance-helper does LESS THAN HALF the effort. [place] lifts, holds or supports trunk or limbs, but provides less than half the effort. 2-Substantial/Maximal Assistance-helper does MORE THAN HALF the effort. [place] lifts or holds trunk or limbs and provides more than half the effort. 7-Jkoschqcr-srsgeo does ALL the effort. Patient does none of the effort to complete the activity. Or, the assistance of 2 or more helpers is required for the patient to complete the activity. If activity was not attempted, code reason: 7-Patient Refused. 9-Not Applicable-not attempted and the patient did not perform the activity before the current illness, exacerbation or injury. 10-Not Attempted due to Environmental Limitations-(lack of equipment, weather restraints, etc.). 88-Not Attempted due to Medical Conditions or Safety Concerns. Oral Hygiene (QC): 5 Upper Body Dressing (QC): 2 Lower Body Dressing (QC): 1 On/Off Footwear: 2 Toileting Hygiene (QC): 1 Toilet Transfer (QC): 1 OT Short Term Goals Short Term Goals Time Frame: Dec 11, 2020 Shower/bathe self: 4 Upper body dressin Lower body dressin OT Retirement Goals Retirement Goals Time Frame: Dec 20, 2020 Eating (QC): 6 Oral Hygiene (QC): 6 Toileting Hygiene (QC): 6 Shower/Bathe Self (QC): 6 Upper Body Dressing (QC): 6 Lower Body Dressing (QC): 6 On/Off Footwear (QC): 6 Additional Goals: 1-Demonstrate ADL Tasks, 2-Verbalize Understanding, 3- ImproveStrength/Leti 1=Demonstrate adherence to instructed precautions during ADL tasks. 2=Patient will verbalize/demonstrate understanding of assistive devices/modifications for ADL. 3=Patient will improve strength/tolerance for activity to enable patient to perform ADL's. OT Education/Plan Problem List/Assessment Assessment: Decreased Activ Tolerance, Decreased Safety Aware, Decreased UE Strength, Impaired Bed Mobility, Impaired Coordination, Impaired Funct Balance, Impaired Self-Care Skills Discharge Recommendations Plan/Recommendations: Continue POC Treatment Plan/Plan of Care Patient would benefit from OT for education, treatment and training to promote independence in ADL's, mobility, safety and/or upper extremity function for ADL's. Plan of Care: ADL Retraining, Functional Mobility, Group Exercise/Act as Ind, UE Funct Exercise/Act Treatment Duration: Dec 20, 2020 Frequency: Modified Program (IRF) Estimated Hrs Per Day: 1 hour per day Rehab Potential: Fair Time/GCodes Start Time: 08:00 Stop Time: 09:00 Total Time Billed (hr/min): 60 Billed Treatment Time 1 visit-FA 4 (60 min) co-treat with PT [id number] (COVID waiver) VIOLET BACA Nov 21, 2020 09:02
[2020-11-21 09:11] VITALS: BP 97/64
[2020-11-21] MEDS: SILDENAFIL 20 MG (REVATIO) TAB NON-FORMULARY PO SCH ×3 (09:11→21:03)
--- NOTE | 2020-11-21 09:11 | NUR ---
WHILE WORKING WITH THERAPY, BP 76/50 (SITTING ON EOB). HR 140'S. PATIENT ASSISTED BACK TO SUPINE POSITION. BP SLOWLY CAME UP TO 97/64. HR 120'S. DR. LUONG NOTIFIED OF ABOVE. ORDERS TO CHANGE CARDIZEM TO CARDIZEM CD- 120 MG PO DAILY- HOLD FOR SBP LESS THAN 85. DC LASIX. HOLD SILDENAFIL FOR SBP LESS THAN 100. START NS AT 100 MLS/HR X5 HOURS.
[2020-11-21] MEDS ORDERED: NS IV 1000 ML 1,000 ML IV SCH (09:15)
[2020-11-21] MEDS ORDERED: NS IV 1000 ML 1,000 ML ONE (09:35)
[2020-11-21] MEDS: dilTIAZem120 MG (CARDIZEM CD) CAP PO SCH (10:11)
[2020-11-21 14:02] VITALS: BP 97/64
--- NOTE | 2020-11-21 14:55 | NUR ---
DR. LUONG HERE TO SEE PATIENT. ORDERS TO DC LOVENOX AND START ELIQUIS- 5 MG PO BID.
--- NOTE | 2020-11-21 15:02 | Consultation-Cardiology ---
HPI-Cardiology Cardiology Consultation: Date of Consultation 11/21/20 Time Seen by a Provider: 14:45 Date of Admission Attending Physician Johana Saxena DO Admitting Physician Consulting Physician LIONEL LUONG MD, MA, FACP, FACC, FSCAI, CCDS HPI: Chief Complaint: Reason for consultation: PAF HPI 80 yo man with COVID-19 in mid 2019 that has since led to a long hospitalization and has now been transferred to Dr Saxena for inpt rehab at this hosp from a fdc care facility ([facility]). Dr Saxena has wanted us to see him for his h/o PAF. This morning, during PT, he was weak and dizzy and had a rapid, irreg heart rated and somewhat low bp. Has since received iv fluids and oral dilt. Currently, feels better. Notes gen malaise and weakness. Denies cp or palp or syncope or shortness of breath at rest Review of Systems-Cardiology Review of Systems Constitutional: malaise, tiredness; No weight loss, No weight gain Eyes: No vision change Ears/Nose/Throat: No ear discharge, No nasal drainage, No recent hearing loss Respiratory: As described under HPI Cardiovascular: As described under HPI Gastrointestinal: No diarrhea, No nausea, No vomiting Genitourinary: No hematuria; urgency, other (hesitancy of micturition); No urine frequency changes Musculoskeletal: back pain (chronic) Skin: No rash, No ulcerations Psychiatric/Neurological: No seizure, No focal weakness, No syncope Hematologic: No bleeding abnormalities All Other Systems Reviewed Negative Unless Noted: Yes DUY-[id number]-Evcnhq Hx Patient Social History Marrital Status: Employed/Student: retired Alcohol Use: Denies Use Recreational Drug Use: No Smoking Status: Former Smoker (briefly) Type Used: Cigarettes Recent Foreign Travel: No Recent Infectious Disease Expo: No Hospitalization with Isolation: Airborne Physical Abuse Screen: No Sexual Abuse: No Immunizations Up To Date Date of Pneumonia Vaccine: Aug 29, 2017 Past Medical History PMH As described under Assessment. Family Medical History Family Medical History: Does not report fam h/o early CAD Allergies and Home Medications Allergies Coded Allergies: No Allergy Information Available (Unverified , 11/20/20) Home Medications Acetaminophen 325 Mg Capsule, 650 MG NG Q6H PRN for PAIN-MILD (1-4) OR TEMPATURE, (Reported) GIVE FOR FEVER GREATER THEN 101.4F Atorvastatin Calcium 10 Mg Tablet, 20 MG PO DAILY, (Reported) TAKES 2 (10MG) TABS Cyanocobalamin (Vitamin B-12) 1,000 Mcg Tablet, 1,000 MCG NG DAILY, (Reported) Diltiazem HCl 30 Mg Tablet, 30 MG NG TID, (Reported) HOLD FOR SYSTOLIC BP LESS THEN 100 OR HEART RATE LESS THEN 55 Enoxaparin Sodium 100 Mg/1 Ml Syringe, 94 MG SQ BID, (Reported) Folic Acid 0.4 Mg Tablet, 1.2 MG PO DAILY, (Reported) TAKES 3 (0.4MG) TABS DIRECTIONS SAY 1200 MCG DAILY Furosemide 20 Mg Tablet, 40 MG PO DAILY, (Reported) HOLD FOR SYSTOLIC BP LESS THAN 100 TAKES 2 (20MG) TABS Ipratropium/Albuterol Sulfate 3 Ml Ampul.neb, 3 ML IH QID, (Reported) Lactobacillus Acidophilus/Pect 1 Each Capsule, 1 EACH PO BID, (Reported) Melatonin 5 Mg Tablet, 5 MG PO HS, (Reported) Pantoprazole Sodium 40 Mg Tablet.dr, 40 MG PO DAILY, (Reported) Phenol 177 Ml Paron.pump, 1 SPRAY MM QID PRN for SORE THROAT, (Reported) Prednisone 10 Mg Tab, 30 MG PO DAILY, (Reported) TAKES 3 (10MG) TABS Roflumilast 250 Mcg Tablet, 250 MCG NG DAILY, (Reported) Sennosides 8.6 Mg Tablet, 8.6 MG PO DAILY PRN for CONSTIPATION-5TH LINE, (Reported) Sildenafil Citrate 20 Mg Tablet, 20 MG PO TID, (Reported) HOLD FOR SYSTOLIC BP LESS THAN 110 Ubidecarenone 200 Mg Capsule, 200 MG PO DAILY, (Reported) Patient Home Medication List Home Medication List Reviewed: Yes Physical Exam-Cardiology Physical Exam Vital Signs/I&O 11/21/20 11/21/20 11/21/20 11/21/20 06:00 07:41 09:11 10:13 Temp 37.3 Pulse 109 120 Resp 20 B/P (MAP) 95/59 (71) 97/64 (75) Pulse Ox 98 95 O2 Delivery Nasal Cannula Nasal Cannula Nasal Cannula O2 Flow Rate 1.00 1.00 3.00 3.00 11/21/20 14:02 Pulse 105 Resp 20 B/P (MAP) 97/64 (75) Pulse Ox 96 O2 Delivery Nasal Cannula O2 Flow Rate 3.00 11/21/20 00:00 Intake Total 640 ml Output Total 1050 ml Balance -410 ml Capillary Refill : Less Than 3 Seconds Constitutional: AAO x 3, well-developed, well-nourished HEENT: EOMI, hearing is well preserved Neck: carotid pulses are 2 + bilaterally, with good upstrokes Respiratory: No accessory muscle use; other (good bilat air entry, somewhat diminished at the bases) Cardiovascular: irregularly irregular, S1 and S2, systolic murmur (2/6 SHERAMN at card base) Gastrointestinal: No tender; soft; No guarding, No rebound; audible bowel sounds Extremities: No clubbing, No cyanosis, No significant edema Neurologic/Psychiatric: oriented x 3, other (moves all limbs) Skin: No rash on exposed areas, No ulcerations on exposed areas Data Review Labs Laboratory Tests 11/21/20 05:33: White Blood Count 9.6, Red Blood Count 3.32L, Hemoglobin 9.7L, Hematocrit 31L, Mean Corpuscular Volume 92, Mean Corpuscular Hemoglobin 29, Mean Corpuscular Hemoglobin Concent 32, Red Cell Distribution Width 17.4H, Platelet Count 193, Mean Platelet Volume 9.4, Immature Granulocyte % (Auto) 0, Neutrophils (%) (Auto) 78H, Lymphocytes (%) (Auto) 17, Monocytes (%) (Auto) 4, Eosinophils (%) (Auto) 0, Basophils (%) (Auto) 0, Neutrophils # (Auto) 7.5, Lymphocytes # (Auto) 1.7, Monocytes # (Auto) 0.4, Eosinophils # (Auto) 0.0, Basophils # (Auto) 0.0, Immature Granulocyte # (Auto) 0.0, Sodium Level 134L, Potassium Level 3.7, Chloride Level 101, Carbon Dioxide Level 24, Anion Gap 9, Blood Urea Nitrogen 17, Creatinine 0.58L, Estimat Glomerular Filtration Rate > 60, BUN/Creatinine Ratio 29, Glucose Level 85, Calcium Level 8.2L, Corrected Calcium 9.2, Total Bilirubin 0.6, Aspartate Amino Transf (AST/SGOT) 11, Alanine Aminotransferase (ALT/SGPT) 21, Alkaline Phosphatase 94, Total Protein 5.2L, Albumin 2.7L A/P-Cardiology Assessment/Admission Diagnosis PAF S/p ac resp failure due to COVID-19 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 Pulm htn only mild on echo of 11/21/20. Sildenafil probably contributing to intermittently low bp. Will put hold parameters on it * Start long-acting oral dilt for vent rate control * Monitor labs from time to time Clinical Quality Measures DVT/VTE Risk/Contraindication: Risk Factor Score Per Nursin RFS Level Per Nursing on Admit: 4+=Very High LIONEL LUONG MD FACP FAC CCDS Nov 21, 2020 15:02
[2020-11-21 16:18] VITALS: BP 103/61
[2020-11-21] MEDS: TAMSULOSIN 0.4 MG (FLOMAX) CAP PO SCH (17:50)
--- NOTE | 2020-11-21 18:12 | NUR ---
REQUESTING SOMETHING TO HELP HIM SLEEP. DR. COLLINS NOTIFIED. ORDERS TO START REMERON- 7.5 MG PO HS... IN ADDITION TO MELATONIN (10MG).
--- NOTE | 2020-11-21 18:15 | NUR ---
FOX APPLIED TO COCCYX.
[2020-11-21] MEDS: MELATONIN 10 MG TABLET PO SCH (21:02)
[2020-11-21] MEDS: APIXABAN 5 MG (ELIQUIS) TABLET PO SCH (21:02)
[2020-11-21] MEDS: MIRTAZAPINE 15 MG (REMERON) TAB PO SCH (21:03)
[2020-11-22 05:45] VITALS: BP 101/52
[2020-11-22 06:17] LABS: BASOPHILS % (AUTO) 0 % (0-10); EOSINOPHILS % (AUTO) 0 % (0-10); HEMATOCRIT 28 % (40-54); HEMOGLOBIN 8.6 g/dL (13.3-17.7); LYMPHOCYTES # (AUTO) 1.4 10^3/uL (1.0-4.0); LYMPHOCYTES % (AUTO) 20 % (12-44); MEAN CORPUSCULAR HEMOGLOBIN 29 pg (25-34); MEAN CORPUSCULAR HGB CONC 31 g/dL (32-36); MEAN CORPUSCULAR VOLUME 94 fL (80-99); MEAN PLATELET VOLUME 9.4 fL (9.0-12.2); MONOCYTES # (AUTO) 0.4 10^3/uL (0.0-1.0); MONOCYTES % (AUTO) 6 % (0-12); NEUTROPHILS # (AUTO) 4.9 10^3/uL (1.8-7.8); NEUTROPHILS % (AUTO) 73 % (42-75); PLATELET COUNT 166 10^3/uL (130-400); WHITE BLOOD COUNT 6.7 10^3/uL (4.3-11.0)
[2020-11-22 06:19] LABS: ALBUMIN 2.5 GM/DL (3.2-4.5)
[2020-11-22 06:20] LABS: CHLORIDE 101 MMOL/L (98-107); POTASSIUM 4.3 MMOL/L (3.6-5.0); SODIUM 134 MMOL/L (135-145)
[2020-11-22 06:21] LABS: CALCIUM 8.1 MG/DL (8.5-10.1)
[2020-11-22 06:22] LABS: GLUCOSE 90 MG/DL (70-105); TOTAL PROTEIN 4.7 GM/DL (6.4-8.2)
[2020-11-22 06:23] LABS: CARBON DIOXIDE 25 MMOL/L (21-32)
[2020-11-22 06:24] LABS: BILIRUBIN,TOTAL 0.6 MG/DL (0.1-1.0)
[2020-11-22 06:25] LABS: ALKALINE PHOSPHATASE 72 U/L (40-136)
[2020-11-22 06:26] LABS: CREATININE SERUM 0.53 MG/DL (0.60-1.30); GFR ESTIMATED > 60
[2020-11-22 06:27] LABS: BUN/CREATININE RATIO 25
[2020-11-22 06:28] LABS: ALANINE AMINOTRANSFERASE 16 U/L (0-55)
[2020-11-22] MEDS: RT-ALBUTEROL/IPRATROPIUM 3 ML (DUONEB) VIAL IH SCH ×4 (07:59→21:47)
[2020-11-22] MEDS: ROFLUMILAST 500 MCG TAB (DALIRESP) NG SCH (09:39)
[2020-11-22] MEDS: LACTOBACILLUS ACIDOPHILUS (PROBIOTIC) CAPSULE PO SCH ×2 (09:39→20:55)
[2020-11-22] MEDS: CYANOCOBALAMIN 1,000 MCG (VITAMIN B-12) TABLET NG SCH (09:39)
[2020-11-22] MEDS: FOLIC ACID 1 MG TAB PO SCH (09:39)
[2020-11-22] MEDS: APIXABAN 5 MG (ELIQUIS) TABLET PO SCH ×2 (09:40→20:55)
[2020-11-22] MEDS: PANTOPRAZOLE 40 MG (PROTONIX) TAB PO SCH (09:40)
[2020-11-22] MEDS: dilTIAZem120 MG (CARDIZEM CD) CAP PO SCH (09:40)
[2020-11-22] MEDS: predniSONE 10 MG TAB PO SCH (09:40)
[2020-11-22] MEDS: SILDENAFIL 20 MG (REVATIO) TAB NON-FORMULARY PO SCH ×3 (09:41→20:56)
[2020-11-22] MEDS: DOCUSATE SODIUM 100 MG (COLACE) CAP PO SCH ×2 (10:18→20:57)
[2020-11-22] MEDS: SENNA W/DOCUSATE (SENOKOT S) TABLET PO SCH ×2 (10:18→20:56)
[2020-11-22] MEDS: polyethylene glycoL POWDER 17 GM (MIRALAX) PACK PO SCH ×2 (10:18→20:56)
--- NOTE | 2020-11-22 11:44 | PM&R Progress Note ---
Subjective HPI/CC On Admission Date Seen by Provider: Nov 22, 2020 Time Seen by Provider: 10:00 Subjective/Events-last exam 11/22/20: Hgb 8.6 today Feels better since IVF 500cc yesterday and changed cardiac meds by Dr Cisneros Justice guevara was born and he is thrilled about that Mejia cath still in place Fecal incontinence noted RT left him without O2 since he was good BRIEFLY on room air after Nebs for 1 hour and spot checked and he was at 85% and he was very short of breath just resting 11/21/20: Had episode of hypotension 76/40 with symptoms when got to edge of bed so laid back down, Cardiology notified and given 500cc of IVF Patient is on a waiver due to COVID and hypoxia for slow therapy and only 120 minutes per day Cardizem CD 120mg now after changed by Dr Cisneros ECHO done Stopped Lasix Mejia cath remains in place Review of Systems General: Fatigue, Malaise Pulmonary: Dyspnea, Cough Neurological: Weakness, Incoordination Objective Exam Vital Signs Vital Signs Date Time Temp Pulse Resp B/P (MAP) Pulse Ox O2 Delivery O2 Flow Rate FiO2 11/22/20 16:38 36.8 86 18 95/60 (72) 92 11/22/20 14:28 Nasal Cannula 2.00 Capillary Refill : Less Than 3 Seconds General Appearance: No Apparent Distress, WD/WN, Chronically ill, Thin HEENT: PERRL/EOMI, Normal ENT Inspection, Pharynx Normal Neck: Full Range of Motion, Normal Inspection, Non Tender, Supple, Carotid Bruit Respiratory: Chest Non Tender, Lungs Clear, No Accessory Muscle Use, No Respiratory Distress, Decreased Breath Sounds Cardiovascular: Regular Rate, Rhythm, No Edema, No Gallop, No JVD, No Murmur, Normal Peripheral Pulses Gastrointestinal: Normal Bowel Sounds, No Organomegaly, No Pulsatile Mass, Non Tender, Soft Back: Normal Inspection, No CVA Tenderness, No Vertebral Tenderness Extremity: Normal Capillary Refill, Normal Inspection, Normal Range of Motion, Non Tender, No Calf Tenderness, No Pedal Edema Neurologic/Psychiatric: Alert, Oriented x3, No Motor/Sensory Deficits, Normal Mood/Affect, Motor Weakness (generalized 2/5 lower extremities, 3/5 upper extremities) Skin: Normal Color, Warm/Dry Lymphatic: No Adenopathy Results/Procedures Lab Laboratory Tests 11/22/20 06:00 Patient resulted labs reviewed. FIM Transfers Therapy Code Descriptions/Definitions Functional [place] Measure: 0=Not Assessed/NA 4=Minimal Assistance 1=Total Assistance 5=Supervision or Setup 2=Maximal Assistance 6=Modified [place] 3=Moderate Assistance 7=Complete IndependenceSCALE: Activities may be completed with or without assistive devices. 5-Pfmpwqeraq-ynhgpce completes the activity by him/herself with no assistance from a helper. 5-Set-up or Clean-up Assistance-helper sets up or cleans up; patient completes activity. [place] assists only prior to or following the activity. 4-Supervision or Touching Assistance-helper provides verbal cues and/or touching/steadying and/or contact guard assistance as patient completes activity. Assistance may be provided throughout the activity or intermittently. 3-Partial/Moderate Assistance-helper does LESS THAN HALF the effort. Avenue lifts, holds or supports trunk or limbs, but provides less than half the effort. 2-Substantial/Maximal Assistance-helper does MORE THAN HALF the effort. Avenue lifts or holds trunk or limbs and provides more than half the effort. 8-Cocfeibfr-zazlhw does ALL the effort. Patient does none of the effort to complete the activity. Or, the assistance of 2 or more helpers is required for the patient to complete the activity. If activity was not attempted, code reason: 7-Patient Refused. 9-Not Applicable-not attempted and the patient did not perform the activity before the current illness, exacerbation or injury. 10-Not Attempted due to Environmental Limitations-(lack of equipment, weather restraints, etc.). 88-Not Attempted due to Medical Conditions or Safety Concerns. Roll Left to Right (QC): 3 Sit to Lying (QC): 2 Sit to Stand (QC): 2 Chair/Fga-of-Befco Xfer(QC): 2 Car Transfer (QC): 2 Gait Training Does the Patient Walk?: No and Walking Goal IS indicated Walk 10 feet (QC): 88 Walk 50 ft with 2 Turns(QC): 88 Walk 150 ft (QC): 88 Walking 10ft/uneven surface-QC: 88 Wheelchair Training Does the Pt Use a Wheelchair?: Yes Wheel 50 ft with 2 turns (QC): 4 Wheel 150 ft (QC): 88 Type of Wheelchair: Manual Stair Training 1 Step (curb) (QC): 88 4 Steps (QC): 88 12 Steps (QC): 88 Balance Picking up an Object (QC): 88 ADL-Treatment Eating (QC): 7 Oral Hygiene (QC): 5 Shower/Bathe Self (QC): 1 (Pt able to wash BUEs, chest, abdomen. Required assist with all other parts, assist x2.) Upper Body Dressing (QC): 2 Lower Body Dressing (QC): 1 On/Off Footwear (QC): 2 Toileting Hygiene (QC): 1 Toilet Transfer (QC): 1 Assessment/Plan Assessment and Plan Assess & Plan/Chief Complaint Assessment: Myopathy COVID-19 PNA Urinary retention Mejia cath in place Bowel incontinence Hypoxia O2 dependent BPH Frail Advanced age Plan: IRF protocol but 120 minutes per day to accommodate hypoxia at activity [place] meds Melatonin at night 11/21/20: s/o IVF Monitor hypotension and hypoxia Appreciate Dr Blayne QUIJANO done Add Remeron for sleep with Melatonin 11/22/20: No possibility of weaning O2 for now with this patient so needs on 21/06 and will update RT Increase activity (1) Myopathy (2) COVID-19 (3) Hypoxia (4) Urinary retention (5) Emjia catheter in place (6) BPH (benign prostatic hyperplasia) (7) Bowel incontinence (8) Supplemental oxygen dependent (9) Advanced age (10) Frailty BARB COLLINS DO Nov 22, 2020 11:44
--- NOTE | 2020-11-22 12:12 | NUR ---
02 sat at this time on rm air ids 85%. HOB elevated 45%. 02 put back on 2/NC per Dr Saxena order and to leave it at that and do not wean pt at this time. RT notified.
--- NOTE | 2020-11-22 15:35 | Progress Note - Cardiology ---
Cardiology SOAP Progress Note Subjective: Gen weakness and malaise and poor stamina Shortness of breath with exertion No cp or palp or syncope No n/v Objective: I&O/Vital Signs 11/22/20 11/22/20 11/22/20 11/22/20 05:45 07:59 09:00 11:03 Temp 37.2 Pulse 67 Resp 18 B/P (MAP) 101/52 (68) Pulse Ox 97 97 95 O2 Delivery Nasal Cannula Nasal Cannula Nasal Cannula Room Air O2 Flow Rate 3.00 3.00 3.00 11/22/20 14:28 Pulse Ox 95 O2 Delivery Nasal Cannula O2 Flow Rate 2.00 11/22/20 00:00 Intake Total 1540 ml Output Total 400 ml Balance 1140 ml Constitutional: AAO x 3, well-developed, well-nourished Respiratory: No accessory muscle use; other (good bilat air entry, somewhat diminished at the bases) Cardiovascular: irregularly irregular, S1 and S2, systolic murmur (2/6 SHERMAN at card base) Gastrointestional: No tender; soft; No guarding, No rebound; audible bowel sounds Extremities: No clubbing, No cyanosis, No significant edema Neurologic/Psychiatric: oriented x 3, other (moves all limbs) Skin: No rash on exposed areas, No ulcerations on exposed areas Results/Procedures: Labs Laboratory Tests 11/22/20 06:00: White Blood Count 6.7, Red Blood Count 2.97L, Hemoglobin 8.6L, Hematocrit 28L, Mean Corpuscular Volume 94, Mean Corpuscular Hemoglobin 29, Mean Corpuscular Hemoglobin Concent 31L, Red Cell Distribution Width 17.4H, Platelet Count 166, Mean Platelet Volume 9.4, Immature Granulocyte % (Auto) 1, Neutrophils (%) (Auto) 73, Lymphocytes (%) (Auto) 20, Monocytes (%) (Auto) 6, Eosinophils (%) (Auto) 0, Basophils (%) (Auto) 0, Neutrophils # (Auto) 4.9, Lymphocytes # (Auto) 1.4, Monocytes # (Auto) 0.4, Eosinophils # (Auto) 0.0, Basophils # (Auto) 0.0, Immature Granulocyte # (Auto) 0.0, Sodium Level 134L, Potassium Level 4.3, Chloride Level 101, Carbon Dioxide Level 25, Anion Gap 8, Blood Urea Nitrogen 13, Creatinine 0.53L, Estimat Glomerular Filtration Rate > 60, BUN/Creatinine Ratio 25, Glucose Level 90, Calcium Level 8.1L, Corrected Calcium 9.3, Total Bilirubin 0.6, Aspartate Amino Transf (AST/SGOT) 8, Alanine Aminotransferase (ALT/SGPT) 16, Alkaline Phosphatase 72, Total Protein 4.7L, Albumin 2.5L, Thyroid Stimulating Hormone (TSH) 2.25 A/P: Assessment: PAF, currently NSR S/p ac resp failure due to COVID-19 in early 2019 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
[2020-11-22 16:38] VITALS: BP 95/60
[2020-11-22] MEDS: TAMSULOSIN 0.4 MG (FLOMAX) CAP PO SCH (17:55)
[2020-11-22] MEDS: MIRTAZAPINE 15 MG (REMERON) TAB PO SCH (20:55)
[2020-11-22] MEDS: MELATONIN 10 MG TABLET PO SCH (20:55)
[2020-11-23 05:30] VITALS: BP 117/72
--- NOTE | 2020-11-23 07:27 | PM&R Progress Note ---
Subjective HPI/CC On Admission Date Seen by Provider: Nov 23, 2020 Time Seen by Provider: 13:45 Subjective/Events-last exam 11/23/20: No orthostasis today Worked with PT OT BM++ O2 maintained 11/22/20: Hgb 8.6 today Feels better since IVF 500cc yesterday and changed cardiac meds by Dr Cisneros Justice guevara was born and he is thrilled about that Mejia cath still in place Fecal incontinence noted RT left him without O2 since he was good BRIEFLY on room air after Nebs for 1 hour and spot checked and he was at 85% and he was very short of breath just resting 11/21/20: Had episode of hypotension 76/40 with symptoms when got to edge of bed so laid back down, Cardiology notified and given 500cc of IVF Patient is on a waiver due to COVID and hypoxia for slow therapy and only 120 minutes per day Cardizem CD 120mg now after changed by Dr Cisneros ECHO done Stopped Lasix Mejia cath remains in place Review of Systems General: Fatigue, Malaise Pulmonary: Dyspnea Objective Exam Vital Signs Vital Signs Date Time Temp Pulse Resp B/P (MAP) Pulse Ox O2 Delivery O2 Flow Rate FiO2 11/23/20 20:24 97 Nasal Cannula 3.00 11/23/20 18:07 37.0 90 18 101/61 (74) Capillary Refill : Less Than 3 Seconds General Appearance: No Apparent Distress, WD/WN, Chronically ill, Thin HEENT: PERRL/EOMI, Normal ENT Inspection, Pharynx Normal Neck: Full Range of Motion, Normal Inspection, Non Tender, Supple, Carotid Bruit Respiratory: Chest Non Tender, Lungs Clear, No Accessory Muscle Use, No Respiratory Distress, Decreased Breath Sounds Cardiovascular: Regular Rate, Rhythm, No Edema, No Gallop, No JVD, No Murmur, Normal Peripheral Pulses Gastrointestinal: Normal Bowel Sounds, No Organomegaly, No Pulsatile Mass, Non Tender, Soft Back: Normal Inspection, No CVA Tenderness, No Vertebral Tenderness Extremity: Normal Capillary Refill, Normal Inspection, Normal Range of Motion, Non Tender, No Calf Tenderness, No Pedal Edema Neurologic/Psychiatric: Alert, Oriented x3, No Motor/Sensory Deficits, Normal Mood/Affect, Motor Weakness (generalized 2/5 lower extremities, 3/5 upper extremities) Skin: Normal Color, Warm/Dry Lymphatic: No Adenopathy Results/Procedures Lab Patient resulted labs reviewed. FIM Transfers Therapy Code Descriptions/Definitions Functional [place] Measure: 0=Not Assessed/NA 4=Minimal Assistance 1=Total Assistance 5=Supervision or Setup 2=Maximal Assistance 6=Modified [place] 3=Moderate Assistance 7=Complete IndependenceSCALE: Activities may be completed with or without assistive devices. 9-Gcjthclzda-oraulvm completes the activity by him/herself with no assistance from a helper. 5-Set-up or Clean-up Assistance-helper sets up or cleans up; patient completes activity. [place] assists only prior to or following the activity. 4-Supervision or Touching Assistance-helper provides verbal cues and/or touching/steadying and/or contact guard assistance as patient completes activity. Assistance may be provided throughout the activity or intermittently. 3-Partial/Moderate Assistance-helper does LESS THAN HALF the effort. [place] lifts, holds or supports trunk or limbs, but provides less than half the effort. 2-Substantial/Maximal Assistance-helper does MORE THAN HALF the effort. [place] lifts or holds trunk or limbs and provides more than half the effort. 2-Uwvtpnxdr-griwhm does ALL the effort. Patient does none of the effort to complete the activity. Or, the assistance of 2 or more helpers is required for the patient to complete the activity. If activity was not attempted, code reason: 7-Patient Refused. 9-Not Applicable-not attempted and the patient did not perform the activity before the current illness, exacerbation or injury. 10-Not Attempted due to Environmental Limitations-(lack of equipment, weather restraints, etc.). 88-Not Attempted due to Medical Conditions or Safety Concerns. Roll Left to Right (QC): 3 Sit to Lying (QC): 2 Sit to Stand (QC): 2 Chair/Pwu-ow-Uwbtr Xfer(QC): 2 Car Transfer (QC): 2 Gait Training Does the Patient Walk?: No and Walking Goal IS indicated Walk 10 feet (QC): 88 Walk 50 ft with 2 Turns(QC): 88 Walk 150 ft (QC): 88 Walking 10ft/uneven surface-QC: 88 Wheelchair Training Does the Pt Use a Wheelchair?: Yes Wheel 50 ft with 2 turns (QC): 4 Wheel 150 ft (QC): 88 Type of Wheelchair: Manual Stair Training 1 Step (curb) (QC): 88 4 Steps (QC): 88 12 Steps (QC): 88 Balance Picking up an Object (QC): 88 ADL-Treatment Eating (QC): 7 Oral Hygiene (QC): 5 Shower/Bathe Self (QC): 1 (Pt able to wash BUEs, chest, abdomen. Required assist with all other parts, assist x2.) Upper Body Dressing (QC): 2 Lower Body Dressing (QC): 1 On/Off Footwear (QC): 2 Toileting Hygiene (QC): 1 Toilet Transfer (QC): 1 Assessment/Plan Assessment and Plan Assess & Plan/Chief Complaint Assessment: Myopathy COVID-19 PNA Urinary retention Mejia cath in place Bowel incontinence Hypoxia O2 dependent BPH Frail Advanced age Plan: IRF protocol but 120 minutes per day to accommodate hypoxia at activity [place] meds Melatonin at night 11/21/20: s/o IVF Monitor hypotension and hypoxia Appreciate Dr Blayne QUIJANO done Add Remeron for sleep with Melatonin 11/22/20: No possibility of weaning O2 for now with this patient so needs on 21/06 and will update RT Increase activity 11/23/20: Maintain O2 Nebs Monitor BP (1) Myopathy (2) COVID-19 (3) Hypoxia (4) Urinary retention (5) Mejia catheter in place (6) BPH (benign prostatic hyperplasia) (7) Bowel incontinence (8) Supplemental oxygen dependent (9) Advanced age (10) Frailty BARB COLLINS DO Nov 23, 2020 07:27
[2020-11-23] MEDS: RT-ALBUTEROL/IPRATROPIUM 3 ML (DUONEB) VIAL IH SCH ×4 (08:09→20:24)
[2020-11-23] MEDS: DOCUSATE SODIUM 100 MG (COLACE) CAP PO SCH ×2 (08:19→19:30)
[2020-11-23] MEDS: polyethylene glycoL POWDER 17 GM (MIRALAX) PACK PO SCH ×2 (08:20→19:30)
[2020-11-23] MEDS: SENNA W/DOCUSATE (SENOKOT S) TABLET PO SCH ×2 (08:20→19:29)
[2020-11-23] MEDS: LACTOBACILLUS ACIDOPHILUS (PROBIOTIC) CAPSULE PO SCH ×2 (08:21→20:41)
[2020-11-23] MEDS: PANTOPRAZOLE 40 MG (PROTONIX) TAB PO SCH (08:21)
[2020-11-23] MEDS: ROFLUMILAST 500 MCG TAB (DALIRESP) NG SCH (08:21)
[2020-11-23] MEDS: dilTIAZem120 MG (CARDIZEM CD) CAP PO SCH (08:21)
[2020-11-23] MEDS: APIXABAN 5 MG (ELIQUIS) TABLET PO SCH ×2 (08:21→20:41)
[2020-11-23] MEDS: FOLIC ACID 1 MG TAB PO SCH (08:21)
[2020-11-23] MEDS: CYANOCOBALAMIN 1,000 MCG (VITAMIN B-12) TABLET NG SCH (08:21)
[2020-11-23] MEDS: predniSONE 10 MG TAB PO SCH (08:21)
[2020-11-23] MEDS: SILDENAFIL 20 MG (REVATIO) TAB NON-FORMULARY PO SCH ×3 (08:22→20:45)
--- NOTE | 2020-11-23 10:22 | Occupational Ther Daily Note ---
OT Current Status-Daily Note Subjective Pt alert, lying in bed. Pt agrees to therapy. No c/o pain at this time. Nrsg stated that pt was able to tolerate getting out of bed and working on standing. Mental Status/Objective Patient Orientation: Person, Place, Time, Situation Attachments: IV, Oxygen (2L to 3L with exercise) ADL-Treatment Therapy Code Descriptions/Definitions Functional [place] Measure: 0=Not Assessed/NA 4=Minimal Assistance 1=Total Assistance 5=Supervision or Setup 2=Maximal Assistance 6=Modified [place] 3=Moderate Assistance 7=Complete IndependenceSCALE: Activities may be completed with or without assistive devices. 5-Dkemqqjkms-yyiejku completes the activity by him/herself with no assistance from a helper. 5-Set-up or Clean-up Assistance-helper sets up or cleans up; patient completes activity. [place] assists only prior to or following the activity. 4-Supervision or Touching Assistance-helper provides verbal cues and/or touching/steadying and/or contact guard assistance as patient completes activity. Assistance may be provided throughout the activity or intermittently. 3-Partial/Moderate Assistance-helper does LESS THAN HALF the effort. [place] lifts, holds or supports trunk or limbs, but provides less than half the effort. 2-Substantial/Maximal Assistance-helper does MORE THAN HALF the effort. [place] lifts or holds trunk or limbs and provides more than half the effort. 1-Ocussnncj-aqjtih does ALL the effort. Patient does none of the effort to complete the activity. Or, the assistance of 2 or more helpers is required for the patient to complete the activity. If activity was not attempted, code reason: 7-Patient Refused. 9-Not Applicable-not attempted and the patient did not perform the activity before the current illness, exacerbation or injury. 10-Not Attempted due to Environmental Limitations-(lack of equipment, weather restraints, etc.). 88-Not Attempted due to Medical Conditions or Safety Concerns. Oral Hygiene (QC): 6 (Sitting at sink, pt able to complete oral care by self.) On/Off Footwear: 2 (Pt requires assist to complete due to decreased activity tolerance and SOA.) Other Treatment Co-treat with PT ([id number]), skills of 2 clinicians required for skilled instruction and care due to extreme SOA, fall risk, and decreased activity tolerance. PT focusing on bed mobility, sit to stand and standing. OT focusing on ADLs, bed mobility, B UE hand placement during sit to stand and standing. CGA for rolling side to side in bed. Dependent to don/doff briefs in bed. Min A x2 for supine <--> EOB. CGA for sitting EOB. Max A x2 for SPT bed <--> w/c. Max A x2 for sit to standing 2x's. Pt requires multiple lengthy recovery breaks due to low O2 levels (86% then with verbal breathing cues up to 91%). After therapy, pt lying in bed with call light/phone in reach. All needs met in room. OT Short Term Goals Short Term Goals Time Frame: Dec 11, 2020 Shower/bathe self: 4 Upper body dressin Lower body dressin OT [place] Goals Snf Goals Time Frame: Dec 20, 2020 Eating (QC): 6 Oral Hygiene (QC): 6 Toileting Hygiene (QC): 6 Shower/Bathe Self (QC): 6 Upper Body Dressing (QC): 6 Lower Body Dressing (QC): 6 On/Off Footwear (QC): 6 Additional Goals: 1-Demonstrate ADL Tasks, 2-Verbalize Understanding, 3- ImproveStrength/Leti 1=Demonstrate adherence to instructed precautions during ADL tasks. 2=Patient will verbalize/demonstrate understanding of assistive devices/modifications for ADL. 3=Patient will improve strength/tolerance for activity to enable patient to perform ADL's. OT Education/Plan Problem List/Assessment Assessment: Decreased Activ Tolerance, Decreased UE Strength, Dependent Trans fers, Impaired Bed Mobility, Impaired Coordination, Impaired Funct Balance, Impaired Self-Care Skills Discharge Recommendations Plan/Recommendations: Continue POC Treatment Plan/Plan of Care Patient would benefit from OT for education, treatment and training to promote independence in ADL's, mobility, safety and/or upper extremity function for ADL's. Plan of Care: ADL Retraining, Functional Mobility, Group Exercise/Act as Ind, UE Funct Exercise/Act Treatment Duration: Dec 20, 2020 Frequency: Modified Program (IRF) Estimated Hrs Per Day: 1 hour per day Rehab Potential: Fair Time/GCodes Start Time: 09:00 Stop Time: 10:00 Total Time Billed (hr/min): 60 Billed Treatment Time 1 visit-FA 3 (50 min) ADL 1 (10 min) co-treat with PT [id number] VIOLET BACA Nov 23, 2020 10:22
--- NOTE | 2020-11-23 12:37 | Physical Therapy Daily Note ---
PT Daily Note-Current Subjective States that he is doing okay. Transfers SCALE: Activities may be completed with or without assistive devices. 8-Bdolaicmxs-utiyksx completes the activity by him/herself with no assistance from a helper. 5-Set-up or Clean-up Assistance-helper sets up or cleans up; patient completes activity. [place] assists only prior to or following the activity. 4-Supervision or Touching Assistance-helper provides verbal cues and/or touching/steadying and/or contact guard assistance as patient completes activity. Assistance may be provided throughout the activity or intermittently. 3-Partial/Moderate Assistance-helper does LESS THAN HALF the effort. [place] lifts, holds or supports trunk or limbs, but provides less than half the effort. 2-Substantial/Maximal Assistance-helper does MORE THAN HALF the effort. [place] lifts or holds trunk or limbs and provides more than half the effort. 3-Yvpboblri-bkyxpj does ALL the effort. Patient does none of the effort to complete the activity. Or, the assistance of 2 or more helpers is required for the patient to complete the activity. If activity was not attempted, code reason: 7-Patient Refused. 9-Not Applicable-not attempted and the patient did not perform the activity before the current illness, exacerbation or injury. 10-Not Attempted due to Environmental Limitations-(lack of equipment, weather restraints, etc.). 88-Not Attempted due to Medical Conditions or Safety Concerns. Roll Left & Right (QC): 1 Sit to Lying (QC): 1 Lying to Sitting/Side of Bed(Q: 1 Sit to Stand (QC): 2 Treatments Co-treat with OT for 60 minutes to assist with all transfers and ADL's. Assessment Current Status: Excellent Progress Patient did well with transfers but did fatigue quickly. PT Short Term Goals Short Term Goals Time Frame: Nov 27, 2020 Roll Left & Right: 3 Sit to lyin Lying to sitting on side of be: 3 Sit to stand: 3 Chair/kys-dm-uivbl transfer: 3 Walk 10 feet: 3 PT Head Char Filter Tank Tender Goals Head Char Filter Tank Tender Goals PT Head Char Filter Tank Tender Goals Time Frame: Dec 11, 2020 Roll Left & Right (QC): 4 Sit to Lying (QC): 4 Lying-Sitting on Side/Bed(QC): 4 Sit to Stand (QC): 4 Chair/Ogj-jh-Znavq Xfer(QC): 4 Toilet Transfer (QC): 4 Car Transfer (QC): 3 Does the Patient Walk: Yes Walk 10 feet (QC): 3 Walk 50ft with 2 Turns (QC): 3 Walk 150 ft (QC): 88 Walking 10ft on Uneven Surface: 3 1 Step (curb) (QC): 3 4 Steps (QC): 88 12 Steps (QC): 88 Picking up an Object (QC): 88 Wheel 50 feet with 2 turns (QC: 6 Wheel 150 feet: 6 PT Plan Treatment/Plan Treatment Plan: Continue Plan of Care Treatment Plan: Bed Mobility, Education, Functional Activity Leti, Functional Strength, Group Therapy, Gait, Safety, Therapeutic Exercise, Transfers Treatment Duration: Dec 11, 2020 Frequency: Modified Program (IRF) Estimated Hrs Per Day: 1 hour per day Patient and/or Family Agrees t: Yes Time/GCodes Time In: 900 Time Out: 1000 Total Billed Treatment Time: 60 Total Billed Treatment 1, FA x 60' LILLY NUNEZ PT Nov 23, 2020 12:37
--- NOTE | 2020-11-23 15:15 | Progress Note - Cardiology ---
Cardiology SOAP Progress Note Subjective: Weakness and malaise Exertional shortness of breath No cp or palp or syncope No n/v/d Objective: I&O/Vital Signs 11/23/20 11/23/20 11/23/20 05:30 09:07 10:37 Temp 36.8 Pulse 80 Resp 16 B/P (MAP) 117/72 (87) Pulse Ox 96 94 O2 Delivery Nasal Cannula Nasal Cannula Nasal Cannula O2 Flow Rate 3.00 3.00 2.00 11/23/20 00:00 Intake Total 780 ml Output Total 750 ml Balance 30 ml Constitutional: AAO x 3, well-developed, well-nourished Respiratory: No accessory muscle use; other (good bilat air entry, somewhat diminished at the bases) Cardiovascular: irregularly irregular, S1 and S2, systolic murmur (2/6 SHERMAN at card base) Gastrointestional: No tender; soft; No guarding, No rebound; audible bowel sounds Extremities: No clubbing, No cyanosis, No significant edema Neurologic/Psychiatric: oriented x 3, other (moves all limbs) Skin: No rash on exposed areas, No ulcerations on exposed areas Results/Procedures: Labs Laboratory Tests 11/22/20 06:00 A/P: Assessment: PAF, currently NSR S/p ac resp failure due to COVID-19 in early 2019 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 Diuretics stopped on 11/21/20. Sildenafil reduced on 11/23/20 Plan: * Reduce sildenafil because of low bp * Change dilt to beta-fermin. BB is likely to help more with inappropriate sinus tach * Monitor labs from time to time LIONEL LUONG MD FACP FAC CCDS Nov 23, 2020 15:15
[2020-11-23] MEDS: TAMSULOSIN 0.4 MG (FLOMAX) CAP PO SCH (17:29)
[2020-11-23 18:07] VITALS: BP 101/61
[2020-11-23 20:00] VITALS: BP 107/68
[2020-11-23] MEDS: MELATONIN 10 MG TABLET PO SCH (20:40)
[2020-11-23] MEDS: MIRTAZAPINE 15 MG (REMERON) TAB PO SCH (20:41)
[2020-11-23] MEDS: meTOprolol TARTRATE 25 MG (LOPRESSOR) TABLET PO SCH (20:41)
[2020-11-24 05:39] VITALS: BP 109/66
[2020-11-24 06:38] LABS: ALBUMIN 2.6 GM/DL (3.2-4.5)
[2020-11-24 06:39] LABS: CHLORIDE 101 MMOL/L (98-107); POTASSIUM 4.4 MMOL/L (3.6-5.0); SODIUM 132 MMOL/L (135-145)
[2020-11-24 06:40] LABS: CALCIUM 8.3 MG/DL (8.5-10.1)
--- NOTE | 2020-11-24 06:40 | PM&R Progress Note ---
Subjective HPI/CC On Admission Date Seen by Provider: Nov 24, 2020 Time Seen by Provider: 14:00 Subjective/Events-last exam 11/24/20: Venofer IV started and I explained why I started that for him Will check CT scan of chest tomorrow and consult Dr Schrader Labs and ABG ordered as well Still very tachypneic with conversation and at rest Monitoring BP 2L/min 11/23/20: No orthostasis today Worked with PT OT BM++ O2 maintained 11/22/20: Hgb 8.6 today Feels better since IVF 500cc yesterday and changed cardiac meds by Dr Cisneros [place] guevara was born and he is thrilled about that Mejia cath still in place Fecal incontinence noted RT left him without O2 since he was good BRIEFLY on room air after Nebs for 1 hour and spot checked and he was at 85% and he was very short of breath just resting 11/21/20: Had episode of hypotension 76/40 with symptoms when got to edge of bed so laid back down, Cardiology notified and given 500cc of IVF Patient is on a waiver due to COVID and hypoxia for slow therapy and only 120 minutes per day Cardizem CD 120mg now after changed by Dr Cisneros ECHO done Stopped Lasix Mejia cath remains in place Review of Systems General: Fatigue Pulmonary: Dyspnea, Cough Objective Exam Vital Signs Vital Signs Date Time Temp Pulse Resp B/P (MAP) Pulse Ox O2 Delivery O2 Flow Rate FiO2 11/24/20 17:19 36.6 89 20 127/80 (96) 100 Nasal Cannula 2.00 Capillary Refill : Less Than 3 Seconds General Appearance: No Apparent Distress, WD/WN, Chronically ill, Thin HEENT: PERRL/EOMI, Normal ENT Inspection, Pharynx Normal Neck: Full Range of Motion, Normal Inspection, Non Tender, Supple, Carotid Bruit Respiratory: Chest Non Tender, Lungs Clear, No Respiratory Distress, Accessory Muscle Use, Decreased Breath Sounds Cardiovascular: Regular Rate, Rhythm, No Edema, No Gallop, No JVD, No Murmur, Normal Peripheral Pulses Gastrointestinal: Normal Bowel Sounds, No Organomegaly, No Pulsatile Mass, Non Tender, Soft Back: Normal Inspection, No CVA Tenderness, No Vertebral Tenderness Extremity: Normal Capillary Refill, Normal Inspection, Normal Range of Motion, Non Tender, No Calf Tenderness, No Pedal Edema Neurologic/Psychiatric: Alert, Oriented x3, No Motor/Sensory Deficits, Normal Mood/Affect, Motor Weakness (generalized 2/5 lower extremities, 3/5 upper extremities) Skin: Normal Color, Warm/Dry Lymphatic: No Adenopathy Results/Procedures Lab Laboratory Tests 11/24/20 05:55 Patient resulted labs reviewed. FIM Transfers Therapy Code Descriptions/Definitions Functional [place] Measure: 0=Not Assessed/NA 4=Minimal Assistance 1=Total Assistance 5=Supervision or Setup 2=Maximal Assistance 6=Modified [place] 3=Moderate Assistance 7=Complete IndependenceSCALE: Activities may be completed with or without assistive devices. 5-Fdotnyfdmb-lvnfhry completes the activity by him/herself with no assistance from a helper. 5-Set-up or Clean-up Assistance-helper sets up or cleans up; patient completes activity. [place] assists only prior to or following the activity. 4-Supervision or Touching Assistance-helper provides verbal cues and/or touching/steadying and/or contact guard assistance as patient completes activity. Assistance may be provided throughout the activity or intermittently. 3-Partial/Moderate Assistance-helper does LESS THAN HALF the effort. [place] lifts, holds or supports trunk or limbs, but provides less than half the effort. 2-Substantial/Maximal Assistance-helper does MORE THAN HALF the effort. [place] lifts or holds trunk or limbs and provides more than half the effort. 1-Lfciuaaiw-zkmaqm does ALL the effort. Patient does none of the effort to complete the activity. Or, the assistance of 2 or more helpers is required for the patient to complete the activity. If activity was not attempted, code reason: 7-Patient Refused. 9-Not Applicable-not attempted and the patient did not perform the activity before the current illness, exacerbation or injury. 10-Not Attempted due to Environmental Limitations-(lack of equipment, weather restraints, etc.). 88-Not Attempted due to Medical Conditions or Safety Concerns. Roll Left to Right (QC): 1 Sit to Lying (QC): 1 Sit to Stand (QC): 2 Chair/Pxc-ta-Njuth Xfer(QC): 2 Car Transfer (QC): 2 Gait Training Does the Patient Walk?: No and Walking Goal IS indicated Walk 10 feet (QC): 88 Walk 50 ft with 2 Turns(QC): 88 Walk 150 ft (QC): 88 Walking 10ft/uneven surface-QC: 88 Wheelchair Training Does the Pt Use a Wheelchair?: Yes Wheel 50 ft with 2 turns (QC): 4 Wheel 150 ft (QC): 88 Type of Wheelchair: Manual Stair Training 1 Step (curb) (QC): 88 4 Steps (QC): 88 12 Steps (QC): 88 Balance Picking up an Object (QC): 88 ADL-Treatment Eating (QC): 7 Oral Hygiene (QC): 6 (Sitting at sink, pt able to complete oral care by self.) Shower/Bathe Self (QC): 1 (Pt able to wash BUEs, chest, abdomen. Required assist with all other parts, assist x2.) Upper Body Dressing (QC): 2 Lower Body Dressing (QC): 1 On/Off Footwear (QC): 2 (Pt requires assist to complete due to decreased activity tolerance and SOA.) Toileting Hygiene (QC): 1 Toilet Transfer (QC): 1 Assessment/Plan Assessment and Plan Assess & Plan/Chief Complaint Assessment: Myopathy COVID-19 PNA Urinary retention Mejia cath in place Bowel incontinence Hypoxia O2 dependent BPH Frail Advanced age Plan: IRF protocol but 120 minutes per day to accommodate hypoxia at activity [place] meds Melatonin at night 11/21/20: s/o IVF Monitor hypotension and hypoxia Appreciate Dr Cisneros ECHO done Add Remeron for sleep with Melatonin 11/22/20: No possibility of weaning O2 for now with this patient so needs on 21/06 and will update RT Increase activity 11/23/20: Maintain O2 Nebs Monitor BP 11/24/20: Venofer Labs and ABG and CT chest in am Dr Schrader consultation Maintain O2 Very fragile lungs (1) Myopathy (2) COVID-19 (3) Hypoxia (4) Urinary retention (5) Mejia catheter in place (6) BPH (benign prostatic hyperplasia) (7) Bowel incontinence (8) Supplemental oxygen dependent (9) Advanced age (10) Frailty BARB COLLINS DO Nov 24, 2020 06:40
[2020-11-24 06:41] LABS: BASOPHILS % (AUTO) 0 % (0-10); EOSINOPHILS % (AUTO) 1 % (0-10); GLUCOSE 87 MG/DL (70-105); HEMATOCRIT 28 % (40-54); HEMOGLOBIN 8.8 g/dL (13.3-17.7); LYMPHOCYTES # (AUTO) 1.5 10^3/uL (1.0-4.0); LYMPHOCYTES % (AUTO) 23 % (12-44); MEAN CORPUSCULAR HEMOGLOBIN 30 pg (25-34); MEAN CORPUSCULAR HGB CONC 32 g/dL (32-36); MEAN CORPUSCULAR VOLUME 93 fL (80-99); MEAN PLATELET VOLUME 9.8 fL (9.0-12.2); MONOCYTES # (AUTO) 0.4 10^3/uL (0.0-1.0); MONOCYTES % (AUTO) 6 % (0-12); NEUTROPHILS # (AUTO) 4.7 10^3/uL (1.8-7.8); NEUTROPHILS % (AUTO) 70 % (42-75); PLATELET COUNT 210 10^3/uL (130-400); WHITE BLOOD COUNT 6.7 10^3/uL (4.3-11.0)
[2020-11-24 06:42] LABS: CARBON DIOXIDE 23 MMOL/L (21-32)
[2020-11-24 06:43] LABS: BILIRUBIN,TOTAL 0.5 MG/DL (0.1-1.0)
[2020-11-24 06:44] LABS: ALKALINE PHOSPHATASE 74 U/L (40-136)
[2020-11-24 06:45] LABS: CREATININE SERUM 0.54 MG/DL (0.60-1.30); GFR ESTIMATED > 60
[2020-11-24 06:46] LABS: BUN/CREATININE RATIO 22
[2020-11-24 06:47] LABS: ALANINE AMINOTRANSFERASE 17 U/L (0-55)
[2020-11-24] MEDS: RT-ALBUTEROL/IPRATROPIUM 3 ML (DUONEB) VIAL IH SCH ×2 (07:40→22:41)
--- NOTE | 2020-11-24 08:32 | Diagnostic Imaging Report ---
EXAMINATION: Chest radiograph, portable AP view. DATE: 11/24/2020 3:29 AM INDICATION: 80-year-old male, dyspnea. COMPARISON: None. FINDINGS: There is multifocal bilateral lung consolidation. The heart appears mildly enlarged. There is no identified pericardial effusion. There is obscuration of visualized portions of the left hemidiaphragm. IMPRESSION: 1. Nonspecific multifocal bilateral lung consolidation. Multifocal pneumonia including atypical infectious etiologies is in the differential diagnosis. Other alveolar consolidative processes are also considered. Dictated by: Dictated on workstation # [id number]
[2020-11-24] MEDS: LACTOBACILLUS ACIDOPHILUS (PROBIOTIC) CAPSULE PO SCH ×2 (09:52→20:26)
[2020-11-24] MEDS: predniSONE 10 MG TAB PO SCH (09:53)
[2020-11-24] MEDS: PANTOPRAZOLE 40 MG (PROTONIX) TAB PO SCH (09:53)
[2020-11-24] MEDS: CYANOCOBALAMIN 1,000 MCG (VITAMIN B-12) TABLET NG SCH (09:53)
[2020-11-24] MEDS: ROFLUMILAST 500 MCG TAB (DALIRESP) NG SCH (09:53)
[2020-11-24] MEDS: APIXABAN 5 MG (ELIQUIS) TABLET PO SCH ×2 (09:53→20:26)
[2020-11-24] MEDS: meTOprolol TARTRATE 25 MG (LOPRESSOR) TABLET PO SCH ×2 (09:54→20:31)
[2020-11-24] MEDS: FOLIC ACID 1 MG TAB PO SCH (09:54)
[2020-11-24] MEDS: SILDENAFIL 20 MG (REVATIO) TAB NON-FORMULARY PO SCH ×3 (09:58→20:45)
[2020-11-24] MEDS: IRON SUCROSE 200 MG/10 ML (VENOFER) VIAL IV SCH (10:07)
[2020-11-24] MEDS: DOCUSATE SODIUM 100 MG (COLACE) CAP PO SCH ×2 (10:10→20:46)
[2020-11-24] MEDS: SENNA W/DOCUSATE (SENOKOT S) TABLET PO SCH ×2 (10:15→20:46)
[2020-11-24] MEDS: polyethylene glycoL POWDER 17 GM (MIRALAX) PACK PO SCH ×2 (10:15→20:45)
[2020-11-24 13:12] VITALS: BP 102/64
[2020-11-24 17:19] VITALS: BP 127/80
[2020-11-24] MEDS: TAMSULOSIN 0.4 MG (FLOMAX) CAP PO SCH (17:59)
--- NOTE | 2020-11-24 19:24 | NUR ---
Bedside report received from KARYN ODELL, assume care of pt
[2020-11-24 20:25] VITALS: BP 107/66
[2020-11-24] MEDS: MIRTAZAPINE 15 MG (REMERON) TAB PO SCH ×2 (20:26→21:00)
[2020-11-24] MEDS: MELATONIN 10 MG TABLET PO SCH (20:26)
[2020-11-24] MEDS: APAP 325 MG/10.15 ML LIQ (TYLENOL) UDC NG PRN (20:31)
--- NOTE | 2020-11-24 20:31 | NUR ---
c/o chilling temp 37.3 Tylenol 650mg liq given, b/p 107/66 hr 104-22-96% on 2l/m per nc, pt refused Areli, Johnny & Naila.
[2020-11-24] MEDS ORDERED: MONTELUKAST 10 MG (SINGULAIR) TAB ONE (20:36)
[2020-11-24] MEDS: MONTELUKAST 10 MG (SINGULAIR) TAB PO SCH (20:42)
--- NOTE | 2020-11-24 21:15 | NUR ---
sleeping temp 37.2
[2020-11-25] MEDS: APAP 325 MG/10.15 ML LIQ (TYLENOL) UDC NG PRN (04:19)
--- NOTE | 2020-11-25 04:19 | NUR ---
temp 37.5, Tylenol 650mg liq given
[2020-11-25 05:00] VITALS: BP 105/68
[2020-11-25 06:12] LABS: BASOPHILS % (AUTO) 0 % (0-10); EOSINOPHILS # (AUTO) 0.1 10^3/uL (0.0-0.3); EOSINOPHILS % (AUTO) 1 % (0-10); HEMATOCRIT 28 % (40-54); LYMPHOCYTES # (AUTO) 1.6 10^3/uL (1.0-4.0); LYMPHOCYTES % (AUTO) 21 % (12-44); MEAN CORPUSCULAR HEMOGLOBIN 29 pg (25-34); MEAN CORPUSCULAR HGB CONC 32 g/dL (32-36); MEAN CORPUSCULAR VOLUME 92 fL (80-99); MEAN PLATELET VOLUME 9.2 fL (9.0-12.2); MONOCYTES # (AUTO) 0.5 10^3/uL (0.0-1.0); MONOCYTES % (AUTO) 6 % (0-12); NEUTROPHILS # (AUTO) 5.3 10^3/uL (1.8-7.8); NEUTROPHILS % (AUTO) 71 % (42-75); PLATELET COUNT 221 10^3/uL (130-400); WHITE BLOOD COUNT 7.5 10^3/uL (4.3-11.0)
--- NOTE | 2020-11-25 06:20 | PM&R Progress Note ---
Subjective HPI/CC On Admission Date Seen by Provider: Nov 25, 2020 Time Seen by Provider: 09:00 Subjective/Events-last exam 11/25/20: ABG is pending from not being drawn yet CT of the chest will be performed, Dr. Schrader has been updated Bowels moved yesterday 11/24/20: Venofer IV started and I explained why I started that for him Will check CT scan of chest tomorrow and consult Dr Schrader Labs and ABG ordered as well Still very tachypneic with conversation and at rest Monitoring BP 2L/min 11/23/20: No orthostasis today Worked with PT OT BM++ O2 maintained 11/22/20: Hgb 8.6 today Feels better since IVF 500cc yesterday and changed cardiac meds by Dr Cisneros [place] was born and he is thrilled about that Mejia cath still in place Fecal incontinence noted RT left him without O2 since he was good BRIEFLY on room air after Nebs for 1 hour and spot checked and he was at 85% and he was very short of breath just resting 11/21/20: Had episode of hypotension 76/40 with symptoms when got to edge of bed so laid back down, Cardiology notified and given 500cc of IVF Patient is on a waiver due to COVID and hypoxia for slow therapy and only 120 minutes per day Cardizem CD 120mg now after changed by Dr Cisneros ECHO done Stopped Lasix Mejia cath remains in place Review of Systems General: Fatigue, Malaise Pulmonary: Dyspnea Objective Exam Vital Signs Vital Signs Date Time Temp Pulse Resp B/P (MAP) Pulse Ox O2 Delivery O2 Flow Rate FiO2 11/25/20 21:30 Nasal Cannula 1.00 11/25/20 21:15 37.0 92 20 109/70 (83) 96 Capillary Refill : Less Than 3 Seconds General Appearance: No Apparent Distress, WD/WN, Chronically ill, Thin HEENT: PERRL/EOMI, Normal ENT Inspection, Pharynx Normal Neck: Full Range of Motion, Normal Inspection, Non Tender, Supple, Carotid Bruit Respiratory: Chest Non Tender, Lungs Clear, No Respiratory Distress, Accessory Muscle Use, Decreased Breath Sounds Cardiovascular: Regular Rate, Rhythm, No Edema, No Gallop, No JVD, No Murmur, Normal Peripheral Pulses Gastrointestinal: Normal Bowel Sounds, No Organomegaly, No Pulsatile Mass, Non Tender, Soft Back: Normal Inspection, No CVA Tenderness, No Vertebral Tenderness Extremity: Normal Capillary Refill, Normal Inspection, Normal Range of Motion, Non Tender, No Calf Tenderness, No Pedal Edema Neurologic/Psychiatric: Alert, Oriented x3, No Motor/Sensory Deficits, Normal Mood/Affect, Motor Weakness (generalized 2/5 lower extremities, 3/5 upper extremities) Skin: Normal Color, Warm/Dry Lymphatic: No Adenopathy Results/Procedures Lab Laboratory Tests 11/25/20 05:45 Patient resulted labs reviewed. FIM Transfers Therapy Code Descriptions/Definitions Functional [place] Measure: 0=Not Assessed/NA 4=Minimal Assistance 1=Total Assistance 5=Supervision or Setup 2=Maximal Assistance 6=Modified [place] 3=Moderate Assistance 7=Complete IndependenceSCALE: Activities may be completed with or without assistive devices. 7-Tdjdpublvy-fdhffzu completes the activity by him/herself with no assistance from a helper. 5-Set-up or Clean-up Assistance-helper sets up or cleans up; patient completes activity. [place] assists only prior to or following the activity. 4-Supervision or Touching Assistance-helper provides verbal cues and/or touching/steadying and/or contact guard assistance as patient completes activity. Assistance may be provided throughout the activity or intermittently. 3-Partial/Moderate Assistance-helper does LESS THAN HALF the effort. [place] lifts, holds or supports trunk or limbs, but provides less than half the effort. 2-Substantial/Maximal Assistance-helper does MORE THAN HALF the effort. [place] lifts or holds trunk or limbs and provides more than half the effort. 8-Cbfaplulh-fcysfe does ALL the effort. Patient does none of the effort to complete the activity. Or, the assistance of 2 or more helpers is required for the patient to complete the activity. If activity was not attempted, code reason: 7-Patient Refused. 9-Not Applicable-not attempted and the patient did not perform the activity before the current illness, exacerbation or injury. 10-Not Attempted due to Environmental Limitations-(lack of equipment, weather restraints, etc.). 88-Not Attempted due to Medical Conditions or Safety Concerns. Roll Left to Right (QC): 1 Sit to Lying (QC): 1 Sit to Stand (QC): 2 Chair/Gsg-op-Gfhtb Xfer(QC): 2 Car Transfer (QC): 2 Gait Training Does the Patient Walk?: No and Walking Goal IS indicated Walk 10 feet (QC): 88 Walk 50 ft with 2 Turns(QC): 88 Walk 150 ft (QC): 88 Walking 10ft/uneven surface-QC: 88 Wheelchair Training Does the Pt Use a Wheelchair?: Yes Wheel 50 ft with 2 turns (QC): 4 Wheel 150 ft (QC): 88 Type of Wheelchair: Manual Stair Training 1 Step (curb) (QC): 88 4 Steps (QC): 88 12 Steps (QC): 88 Balance Picking up an Object (QC): 88 ADL-Treatment Eating (QC): 7 Oral Hygiene (QC): 6 (Sitting at sink, pt able to complete oral care by self.) Shower/Bathe Self (QC): 1 (Pt able to wash BUEs, chest, abdomen. Required assist with all other parts, assist x2.) Upper Body Dressing (QC): 2 Lower Body Dressing (QC): 1 On/Off Footwear (QC): 2 (Pt requires assist to complete due to decreased activity tolerance and SOA.) Toileting Hygiene (QC): 1 Toilet Transfer (QC): 1 Assessment/Plan Assessment and Plan Assess & Plan/Chief Complaint Assessment: Myopathy COVID-19 PNA Urinary retention Mejia cath in place Bowel incontinence Hypoxia O2 dependent BPH Frail Advanced age Plan: IRF protocol but 120 minutes per day to accommodate hypoxia at activity [place] meds Melatonin at night 11/21/20: s/o IVF Monitor hypotension and hypoxia Appreciate Dr Cisneros ECHO done Add Remeron for sleep with Melatonin 11/22/20: No possibility of weaning O2 for now with this patient so needs on 21/06 and will update RT Increase activity 11/23/20: Maintain O2 Nebs Monitor BP 11/24/20: Venofer Labs and ABG and CT chest in am Dr Schrader consultation Maintain O2 Very fragile lungs 11/25/20: CT chest ABG Dr Schrader consultation (1) Myopathy (2) COVID-19 (3) Hypoxia (4) Urinary retention (5) Mejia catheter in place (6) BPH (benign prostatic hyperplasia) (7) Bowel incontinence (8) Supplemental oxygen dependent (9) Advanced age (10) Frailty BARB COLLINS DO Nov 25, 2020 06:20
[2020-11-25 06:32] LABS: ALANINE AMINOTRANSFERASE 14 U/L (0-55); ALBUMIN 2.4 GM/DL (3.2-4.5); ALKALINE PHOSPHATASE 80 U/L (40-136); BILIRUBIN,TOTAL 0.4 MG/DL (0.1-1.0); BUN/CREATININE RATIO 23; CALCIUM 8.3 MG/DL (8.5-10.1); CARBON DIOXIDE 24 MMOL/L (21-32); CHLORIDE 104 MMOL/L (98-107); GFR ESTIMATED > 60; GLUCOSE 95 MG/DL (70-105); SODIUM 135 MMOL/L (135-145)
[2020-11-25] MEDS: ADVAIR HFA 115/21 MCG INHALER 8 GM IH SCH (07:38)
[2020-11-25 08:00] VITALS: BP 105/56
--- NOTE | 2020-11-25 08:02 | Pulmonary Consultation ---
History of Present Illness History of Present Illness Date Seen by Provider: Nov 25, 2020 Time Seen by Provider: 08:02 Date of Admission History of Present Illness 80 yo admitted to [facility] s/p COVID 19 and long hospitalization. After acute hospitalization pt was transferred to [facility] and now presents here for continued rehab. Pt is extremely weak and dizzy. He complains of SOB worse with exertion. No productive cough or CP. Allergies and Home Medications Allergies Uncoded Allergies: WASPS (Allergy, Unknown, 11/27/20) Home Medications Acetaminophen 325 Mg Capsule, 650 MG NG Q6H PRN for PAIN-MILD (1-4) OR TEMPATURE, (Reported) GIVE FOR FEVER GREATER THEN 101.4F Albuterol Sulfate 1 Puff Puff, 2 PUFF IH Q4H PRN for SHORTNESS OF BREATH, (Reported) Apixaban 5 Mg Tablet, 5 MG PO BID, (Reported) Docusate Sodium 100 Mg Tablet, 100 MG PO HS, (Reported) Doxazosin Mesylate 4 Mg Tablet, 4 MG PO HS, (Reported) Methylprednisolone 4 Mg Tab.ds.pk, MG PO UD, (Reported) FILLED ON 09/23/2020 #21 6 DAY SUPPLY TAKING PER TAPER DIRECTIONS Promethazine/Dextromethorphan 473 Ml Syrup, 5 ML PO Q4H, (Reported) Simvastatin 40 Mg Tablet, 40 MG PO HS, (Reported) Past Zidjhdc-Eyhhew-Vcclni Hx Past Med/Social Hx: Reviewed Nursing Past Med/Soc Hx, Reviewed and Corrections made Patient Social History Alcohol Use: Denies Use Recreational Drug Use: No Smoking Status: Former Smoker (briefly) Type Used: Cigarettes Former Smoker, Quit: Oct 29, 1965 Recent Foreign Travel: No Contact w/Someone Who Travel: No Recent Infectious Disease Expo: No Recent Hopitalizations: Yes Immunizations Up To Date Date of Pneumonia Vaccine: Aug 29, 2017 Seasonal Allergies Seasonal Allergies: Yes Past Medical History Surgeries: Yes (LEFT KNEE REPLACEMENT) Currently Using CPAP: No Cardiac: Yes (A-FIB WITH RVR DURING COVID) Atrial Fibrillation (10/01/20 when intubated) Neurological: No Genitourinary: Yes (TROUBLE GOING TO BATHROOM) Benign Prostatic Hyperpl Gastrointestinal: No Musculoskeletal: Yes (LEFT KNEE REPLACED) Arthritis Endocrine: No HEENT: Yes (WEARS GLASSES) Cancer: No Psychosocial: No Integumentary: No Blood Disorders: No Review of Systems Time Seen by Provider: 08:02 Sepsis Event Evaluation Height, Weight, BMI Height: '" Weight: lbs. oz. kg; 23.39 BMI Method: Exam Exam Vital Signs Date Time Temp Pulse Resp B/P (MAP) Pulse Ox O2 Delivery O2 Flow Rate FiO2 11/25/20 07:38 97 Nasal Cannula 2.00 11/25/20 05:05 36.7 11/25/20 05:00 37.5 82 20 105/68 (80) 98 Nasal Cannula 2.00 11/25/20 04:19 37.5 11/24/20 21:20 37.2 11/24/20 20:35 96 Nasal Cannula 2.00 11/24/20 20:31 37.3 11/24/20 20:25 37.3 104 22 107/66 (80) 96 Nasal Cannula 2.00 11/24/20 17:19 36.6 89 20 127/80 (96) 100 Nasal Cannula 2.00 11/24/20 13:12 92 16 102/64 (77) 97 Nasal Cannula 2.00 11/24/20 10:52 97 Nasal Cannula 2.00 11/24/20 09:00 Nasal Cannula 3.00 I & O 11/25/20 07:00 Intake Total 1020 ml Output Total 2100 ml Balance -1080 ml Height & Weight Height: '" Weight: lbs. oz. kg; 23.39 BMI Method: General Appearance: No Apparent Distress, WD/WN, Chronically ill, Thin HEENT: PERRL/EOMI, Normal ENT Inspection, Pharynx Normal Neck: Full Range of Motion, Normal Inspection, Non Tender, Supple, Carotid Bruit Respiratory: Chest Non Tender, Lungs Clear, No Respiratory Distress, Accessory Muscle Use, Decreased Breath Sounds Cardiovascular: Regular Rate, Rhythm, No Edema, No Gallop, No JVD, No Murmur, Normal Peripheral Pulses Capillary Refill: Less Than 3 Seconds Extremity: Normal Capillary Refill, Normal Inspection, Normal Range of Motion, Non Tender, No Calf Tenderness, No Pedal Edema Neurologic/Psychiatric: Alert, Oriented x3, No Motor/Sensory Deficits, Normal Mood/Affect, Motor Weakness (generalized 2/5 lower extremities, 3/5 upper extremities) Skin: Normal Color, Warm/Dry Lymphatic: No Adenopathy Results Lab Laboratory Tests 11/24/20 05:55 11/25/20 05:45 Assessment/Plan Assessment/Plan COVID 19 PNA with hypoxia - recovering -oxygen -Check CXR -ABG -Albuterol and advair -Prednisone Urinary retention -YARELI Holt DO Nov 25, 2020 08:02
[2020-11-25] MEDS: predniSONE 20 MG TAB PO SCH (08:21)
[2020-11-25] MEDS: CYANOCOBALAMIN 1,000 MCG (VITAMIN B-12) TABLET NG SCH (08:21)
[2020-11-25] MEDS: LACTOBACILLUS ACIDOPHILUS (PROBIOTIC) CAPSULE PO SCH ×2 (08:22→21:25)
[2020-11-25] MEDS: LORATADINE (CLARITIN) 10 MG TAB PO SCH (08:22)
[2020-11-25] MEDS: PANTOPRAZOLE 40 MG (PROTONIX) TAB PO SCH (08:22)
[2020-11-25] MEDS: ROFLUMILAST 500 MCG TAB (DALIRESP) NG SCH (08:22)
[2020-11-25] MEDS: FOLIC ACID 1 MG TAB PO SCH (08:22)
[2020-11-25] MEDS: APIXABAN 5 MG (ELIQUIS) TABLET PO SCH ×2 (08:23→21:25)
[2020-11-25] MEDS: meTOprolol TARTRATE 25 MG (LOPRESSOR) TABLET PO SCH ×2 (08:23→21:25)
[2020-11-25] MEDS: SILDENAFIL 20 MG (REVATIO) TAB NON-FORMULARY PO SCH ×3 (08:27→21:25)
[2020-11-25] MEDS: DOCUSATE SODIUM 100 MG (COLACE) CAP PO SCH ×2 (08:28→21:30)
[2020-11-25] MEDS: polyethylene glycoL POWDER 17 GM (MIRALAX) PACK PO SCH ×2 (08:28→21:30)
[2020-11-25] MEDS: SENNA W/DOCUSATE (SENOKOT S) TABLET PO SCH ×2 (08:29→21:30)
--- NOTE | 2020-11-25 09:02 | Physical Therapy Daily Note ---
PT Daily Note-Current Subjective Pt. in bed, agreeable to Rx. States he wishes he could eat more, "its pretty dry" no c/o pain. Pt. does c/o some light headedness in sitting. ( see BP readings below) Pain Location: No Pain Reported Mental Status Patient Orientation: Normal For Age Attachments: Oxygen (2L) Transfers SCALE: Activities may be completed with or without assistive devices. 6-Qmkepsjuvi-azzimjk completes the activity by him/herself with no assistance from a helper. 5-Set-up or Clean-up Assistance-helper sets up or cleans up; patient completes activity. [place] assists only prior to or following the activity. 4-Supervision or Touching Assistance-helper provides verbal cues and/or touching/steadying and/or contact guard assistance as patient completes activity. Assistance may be provided throughout the activity or intermittently. 3-Partial/Moderate Assistance-helper does LESS THAN HALF the effort. [place] lifts, holds or supports trunk or limbs, but provides less than half the effort. 2-Substantial/Maximal Assistance-helper does MORE THAN HALF the effort. [place] lifts or holds trunk or limbs and provides more than half the effort. 7-Jscevgwya-ctsduu does ALL the effort. Patient does none of the effort to complete the activity. Or, the assistance of 2 or more helpers is required for the patient to complete the activity. If activity was not attempted, code reason: 7-Patient Refused. 9-Not Applicable-not attempted and the patient did not perform the activity before the current illness, exacerbation or injury. 10-Not Attempted due to Environmental Limitations-(lack of equipment, weather restraints, etc.). 88-Not Attempted due to Medical Conditions or Safety Concerns. Roll Left & Right (QC): 4 Sit to Lying (QC): 4 Lying to Sitting/Side of Bed(Q: 3 Exercises Supine Ex: Bridging, Ankle pumps (and HC stretches), Quad Set, Rolling, Glut sets, Heel Slides, Short Arc Quads, Scooting, Straight leg raise, Hip abd/add Supine Reps: 12 (x2) Seated Therapy Exercises: Ankle pumps, Long arc quads, Hip flexion Seated Reps: 15 Treatments pts. BP noted to be low at 95/56, HR 117 and O2 sats at 97%, sitting edge of bed with some c/o dizziness and BP monitored closely as well as O2 sats Assessment Current Status: Good Progress rolling and side to sit progress, BP low and monitored closely PT Short Term Goals Short Term Goals Time Frame: Nov 27, 2020 Roll Left & Right: 3 Sit to lyin Lying to sitting on side of be: 3 Sit to stand: 3 Chair/uxx-ch-bposo transfer: 3 Walk 10 feet: 3 PT Lumber Estimator Goals Lumber Estimator Goals PT Lumber Estimator Goals Time Frame: Dec 11, 2020 Roll Left & Right (QC): 4 Sit to Lying (QC): 4 Lying-Sitting on Side/Bed(QC): 4 Sit to Stand (QC): 4 Chair/Tiy-xb-Cvqat Xfer(QC): 4 Toilet Transfer (QC): 4 Car Transfer (QC): 3 Does the Patient Walk: Yes Walk 10 feet (QC): 3 Walk 50ft with 2 Turns (QC): 3 Walk 150 ft (QC): 88 Walking 10ft on Uneven Surface: 3 1 Step (curb) (QC): 3 4 Steps (QC): 88 12 Steps (QC): 88 Picking up an Object (QC): 88 Wheel 50 feet with 2 turns (QC: 6 Wheel 150 feet: 6 PT Plan Treatment/Plan Treatment Plan: Continue Plan of Care Treatment Plan: Bed Mobility, Education, Functional Activity Leti, Functional Strength, Group Therapy, Gait, Safety, Therapeutic Exercise, Transfers Treatment Duration: Dec 11, 2020 Frequency: Modified Program (IRF) Estimated Hrs Per Day: 1 hour per day Patient and/or Family Agrees t: Yes Safety Risks/Education Patient Education: Transfer Techniques, Correct Positioning, Disease Process, Safety Issues Teaching Recipient: Patient Teaching Methods: Demonstration, Discussion Response to Teaching: Verbalize Understanding, Return Demonstration, Reinforcement Needed Time/GCodes Time In: 800 Time Out: 900 Total Billed Treatment Time: 60 Total Billed Treatment 1,FA30m,EX30m ESSENCE ARRIAZA SOLAR SALES REPRESENTATIVE AND ASSESSOR Nov 25, 2020 09:02
--- NOTE | 2020-11-25 10:00 | Occupational Ther Daily Note ---
OT Current Status-Daily Note Subjective Pt alert, lying in bed. PT reported that pt's BP dropping to 90/59 when sitting EOB and became dizzy. Will complete bed activity. Pt agrees to therapy. During bed bath, pt's O2 levels at 90% without O2. Mental Status/Objective Patient Orientation: Person, Place, Time, Situation Attachments: Mejia Catheter, IV, Oxygen (1L) ADL-Treatment Pt agrees to bed bath. After set up, pt able to complete upper body and tati area by self. Assist given to complete lower body and buttocks. Pt able to lift each LE to assist with bathing. Pt rolling side to side by self using bed rails while assist to cleanse buttocks. Pt completes tasks slowly due to decreased activity tolerance and lengthy recovery breaks. Pt able to thread B UE through hospital gown sleeves. Assist to don/doff socks. After set up, pt able to complete oral care lying upright in bed. After therapy, pt lying in bed on R side. Call light/phone in reach. All needs met in room. Therapy Code Descriptions/Definitions Functional [place] Measure: 0=Not Assessed/NA 4=Minimal Assistance 1=Total Assistance 5=Supervision or Setup 2=Maximal Assistance 6=Modified [place] 3=Moderate Assistance 7=Complete IndependenceSCALE: Activities may be completed with or without assistive devices. 4-Jagshqkygw-kpnuvlk completes the activity by him/herself with no assistance from a helper. 5-Set-up or Clean-up Assistance-helper sets up or cleans up; patient completes activity. [place] assists only prior to or following the activity. 4-Supervision or Touching Assistance-helper provides verbal cues and/or touching/steadying and/or contact guard assistance as patient completes activity. Assistance may be provided throughout the activity or intermittently. 3-Partial/Moderate Assistance-helper does LESS THAN HALF the effort. [place] lifts, holds or supports trunk or limbs, but provides less than half the effort. 2-Substantial/Maximal Assistance-helper does MORE THAN HALF the effort. [place] lifts or holds trunk or limbs and provides more than half the effort. 6-Vdbykckxo-magdas does ALL the effort. Patient does none of the effort to complete the activity. Or, the assistance of 2 or more helpers is required for the patient to complete the activity. If activity was not attempted, code reason: 7-Patient Refused. 9-Not Applicable-not attempted and the patient did not perform the activity before the current illness, exacerbation or injury. 10-Not Attempted due to Environmental Limitations-(lack of equipment, weather restraints, etc.). 88-Not Attempted due to Medical Conditions or Safety Concerns. Oral Hygiene (QC): 5 Bathing Location: L Arm, R Arm, Chest, Abdomen, Perineal Area Shower/Bathe Self (QC): 2 On/Off Footwear: 2 OT Short Term Goals Short Term Goals Time Frame: Dec 11, 2020 Shower/bathe self: 4 Upper body dressin Lower body dressin OT Fdc Goals Fdc Goals Time Frame: Dec 20, 2020 Eating (QC): 6 Oral Hygiene (QC): 6 Toileting Hygiene (QC): 6 Shower/Bathe Self (QC): 6 Upper Body Dressing (QC): 6 Lower Body Dressing (QC): 6 On/Off Footwear (QC): 6 Additional Goals: 1-Demonstrate ADL Tasks, 2-Verbalize Understanding, 3-ImproveStrength/Leti 1=Demonstrate adherence to instructed precautions during ADL tasks. 2=Patient will verbalize/demonstrate understanding of assistive devices/modifications for ADL. 3=Patient will improve strength/tolerance for activity to enable patient to perform ADL's. OT Education/Plan Problem List/Assessment Assessment: Decreased Activ Tolerance, Decreased UE Strength, Impaired Coordination, Impaired Funct Balance, Impaired Self-Care Skills Discharge Recommendations Plan/Recommendations: Continue POC Treatment Plan/Plan of Care Patient would benefit from OT for education, treatment and training to promote independence in ADL's, mobility, safety and/or upper extremity function for ADL's. Plan of Care: ADL Retraining, Functional Mobility, Group Exercise/Act as Ind, UE Funct Exercise/Act Treatment Duration: Dec 20, 2020 Frequency: Modified Program (IRF) Estimated Hrs Per Day: 1 hour per day Rehab Potential: Fair Time/GCodes Start Time: 09:00 Stop Time: 10:00 Total Time Billed (hr/min): 60 Billed Treatment Time 1 visit-ADL 4 (60 min) VIOLET BACA Nov 25, 2020 10:00
[2020-11-25 10:11] LABS: ABG BASE EXCESS 1.2 MMOL/L (-2.5-2.5); ABG OXYGEN SATURATION 95 % (94-100); ABG PCO2 34 MMHG (35-45); ABG PH 7.47 (7.37-7.43); ABG PO2 73 MMHG (79-93); ABG TCO2 25.7 MMOL/L (21.0-31.0); ALLENS TEST YES-POS; INSPIRED O2 1L; VENTILATOR NO
--- NOTE | 2020-11-25 13:29 | Physical Therapy Daily Note ---
PT Daily Note-Current Subjective Pt. agrees to Rx, feeling well. Pain Location: No Pain Reported Mental Status Patient Orientation: Normal For Age Transfers SCALE: Activities may be completed with or without assistive devices. 6-Esvjidgglo-pordejb completes the activity by him/herself with no assistance from a helper. 5-Set-up or Clean-up Assistance-helper sets up or cleans up; patient completes activity. [place] assists only prior to or following the activity. 4-Supervision or Touching Assistance-helper provides verbal cues and/or touching/steadying and/or contact guard assistance as patient completes acti vity. Assistance may be provided throughout the activity or intermittently. 3-Partial/Moderate Assistance-helper does LESS THAN HALF the effort. [place] lifts, holds or supports trunk or limbs, but provides less than half the effort. 2-Substantial/Maximal Assistance-helper does MORE THAN HALF the effort. [place] lifts or holds trunk or limbs and provides more than half the effort. 7-Cduyhebrc-lghnqx does ALL the effort. Patient does none of the effort to complete the activity. Or, the assistance of 2 or more helpers is required for the patient to complete the activity. If activity was not attempted, code reason: 7-Patient Refused. 9-Not Applicable-not attempted and the patient did not perform the activity before the current illness, exacerbation or injury. 10-Not Attempted due to Environmental Limitations-(lack of equipment, weather restraints, etc.). 88-Not Attempted due to Medical Conditions or Safety Concerns. ft and right min to CGA, sup to side to sit, min assist , sit to sup min assist Exercises Supine Ex: Bridging, Ankle pumps, Quad Set, Rolling, Heel Slides, Scooting, Straight leg raise, Hip abd/add Supine Reps: 12 Treatments TRF to EOB, sat 10 min with seated ex, TRF back to bed min assist, BP 100/60 through Rx, O2 sats 93% Assessment Current Status: Good Progress fatigues with Rx PT Short Term Goals Short Term Goals Time Frame: Nov 27, 2020 Roll Left & Right: 3 Sit to lyin Lying to sitting on side of be: 3 Sit to stand: 3 Chair/rzd-fk-qhlxa transfer: 3 Walk 10 feet: 3 PT Custodial Goals Nature Photographer Goals PT Custodial Goals Time Frame: Dec 11, 2020 Roll Left & Right (QC): 4 Sit to Lying (QC): 4 Lying-Sitting on Side/Bed(QC): 4 Sit to Stand (QC): 4 Chair/Ayn-vd-Uxvur Xfer(QC): 4 Toilet Transfer (QC): 4 Car Transfer (QC): 3 Does the Patient Walk: Yes Walk 10 feet (QC): 3 Walk 50ft with 2 Turns (QC): 3 Walk 150 ft (QC): 88 Walking 10ft on Uneven Surface: 3 1 Step (curb) (QC): 3 4 Steps (QC): 88 12 Steps (QC): 88 Picking up an Object (QC): 88 Wheel 50 feet with 2 turns (QC: 6 Wheel 150 feet: 6 PT Plan Treatment/Plan Treatment Plan: Continue Plan of Care Treatment Plan: Bed Mobility, Education, Functional Activity Leti, Functional Strength, Group Therapy, Gait, Safety, Therapeutic Exercise, Transfers Treatment Duration: Dec 11, 2020 Frequency: Modified Program (IRF) Estimated Hrs Per Day: 1 hour per day Patient and/or Family Agrees t: Yes Safety Risks/Education Patient Education: Transfer Techniques Teaching Recipient: Patient Teaching Methods: Demonstration, Discussion Response to Teaching: Verbalize Understanding, Return Demonstration, Reinforcement Needed Time/GCodes Time In: 1300 Time Out: 1330 Total Billed Treatment Time: 30 Total Billed Treatment 1,FA15m,EX15m ESSENCE ARRIAZA MANUAL ARTS THERAPY TEACHER Nov 25, 2020 13:29
[2020-11-25] MEDS ORDERED: APIX5TAB PO (15:10)
[2020-11-25] MEDS ORDERED: D-ME473S11 PO (15:10)
[2020-11-25] MEDS ORDERED: RT-ALBUINH IH (15:10)
[2020-11-25] MEDS ORDERED: DOXA4TAB2 PO (15:10)
[2020-11-25] MEDS ORDERED: DOCU100T2 PO (15:10)
[2020-11-25] MEDS ORDERED: SIMV40TA25 PO (15:10)
[2020-11-25] MEDS ORDERED: METH4TAB10 PO (15:10)
[2020-11-25] MEDS ORDERED: IOHEXOL 350 MG/ML 100 ML (OMNIPAQUE 350) VIAL IV ONE (15:15)
[2020-11-25] MEDS ORDERED: NS 100 ML (IVPB) BAG IV ONE (15:15)
[2020-11-25] MEDS ORDERED: HOLD METFORMIN - RECEIVED CONTRAST 20 ML VIAL IV SCH (15:15)
--- NOTE | 2020-11-25 15:30 | NUR ---
PT LEFT THE FLOOR FOR CT PROCEDURE.
--- NOTE | 2020-11-25 15:45 | NUR ---
PT RETURNED TO FLOOR.
--- NOTE | 2020-11-25 16:22 | Diagnostic Imaging Report ---
EXAMINATION: CT Chest with intravenous contrast. TECHNIQUE: Multiple contiguous axial images were obtained through the chest after the uneventful administration of intravenous contrast. All CT scans use one or more of the following dose optimizing techniques: automated exposure control, MA and/or KvP adjustment based on a patient size and exam type, or iterative reconstruction. HISTORY: Pneumonia, history of COVID-19. COMPARISON: Chest radiograph 11/24/2020. FINDINGS: Thyroid: The thyroid is normal. Mediastinum: Heart size is normal without significant pericardial effusion. Calcifications of the aorta and coronary vessels. Thoracic aorta is normal in caliber. No suspicious lymphadenopathy. Lungs and airways: Patchy groundglass opacities and reticulation throughout both lungs. There is a large bulla within the right upper lobe. More focal consolidation within the left lung apex with central cystic spaces and/or bronchiectasis. There are scattered calcified pleural plaques bilaterally. Small left pleural effusion. Upper abdomen: Bilateral renal cortical cysts are present, many of which are too small to characterize but require no follow-up. Musculoskeletal: Degenerative changes of the spine without suspicious osseous lesion or compression fracture. IMPRESSION: 1. Patchy groundglass opacities and reticulation throughout both lungs which may represent a superimposed pneumonia or atypical infection. 2. Likely background chronic lung disease. 3. Focal masslike consolidation within the left lung apex. Recommend follow-up CT in three months to document resolution. 4. Scattered calcified pleural plaques with may be related to any prior asbestos exposure. 5. Small left pleural effusion. Dictated by: Dictated on workstation # [id number]
[2020-11-25 17:29] VITALS: BP 140/72
--- NOTE | 2020-11-25 17:51 | NUR ---
"RD ASSESSMENT PMHx: afib; BPH; HTN; hypercholesterolemia; PT INTERACTION: Pt was awake and pleasant during nutrition assessment. Pt states current appetite is good. Note avg PO intake >75% x4d, per chart review. Pt states following a regular diet at home, and has no issues with chewing/swallowing food. Pt states some recent issues with constipation. Note last BM was 11/24, and pt currently on bowel regimen of colace BID, senna BID, and miralax BID, per chart review. Pt states recent wt loss, but was unsure of amount/timeframe. Note unable to determine recent wt hx, per chart review. ABNORMAL NUTRITION-RELATED LAB VALUES LOW: Pro 5.0; alb 2.4; CA 8.3; HIGH: Est. kcal needs: 9898-1284 kcal | 25-30 kcal/kg Est. Pro needs: 62-78 g Pro | 0.8-1.0 g Pro/kg PES STATEMENT: Given current appetite and PO intake, no nutrition diagnosis at this time (NO-1.1). INTERVENTION: Continue with current diet order of DYS2 Mechanically Altered diet. Will continue to follow and reassess as pt needs, intake, and status change. Carlos SIMMONS, MS RD LD [phone] cell"
[2020-11-25] MEDS: RT-ALBUTEROL/IPRATROPIUM 3 ML (DUONEB) VIAL IH SCH (18:44)
[2020-11-25] MEDS: TAMSULOSIN 0.4 MG (FLOMAX) CAP PO SCH (18:57)
--- NOTE | 2020-11-25 19:24 | NUR ---
Bedside report received from DEA ODELL, assume care of pt
--- NOTE | 2020-11-25 20:18 | NUR ---
Pt had small liq brown stool, no urine, pt drinking water to help him pass urine
[2020-11-25 21:15] VITALS: BP 109/70
[2020-11-25] MEDS: MIRTAZAPINE 15 MG (REMERON) TAB PO SCH (21:25)
[2020-11-25] MEDS: MONTELUKAST 10 MG (SINGULAIR) TAB PO SCH (21:25)
[2020-11-25] MEDS: MELATONIN 10 MG TABLET PO SCH (21:25)
--- NOTE | 2020-11-25 21:25 | NUR ---
Colace, Miralax & Senokot held due to loose stools
--- NOTE | 2020-11-25 22:25 | NUR ---
pt tried to void in urinal but was unable to void, bladder scan showed 644ml
[2020-11-25] MEDS ORDERED: LIDOCAINE UROJET 2% GEL 10 ML PKG TOP ONE (22:30)
[2020-11-25] MEDS ORDERED: LIDOCAINE UROJET 2% GEL 10 ML PKG ONE (22:35)
--- NOTE | 2020-11-25 22:50 | NUR ---
Straight cath & received 700ml slightly pink clear urine, pt could not tell he needed to void
--- NOTE | 2020-11-26 01:35 | NUR ---
Pt c/o feeling full & needing to void, tried to use urinal & unable to void, bladder scan shows 541ml & straight cath received 650ml slightly pink urine
[2020-11-26] MEDS: RT-ALBUTEROL/IPRATROPIUM 3 ML (DUONEB) VIAL IH SCH ×3 (01:45→20:58)
[2020-11-26 05:27] VITALS: BP 114/72
--- NOTE | 2020-11-26 05:58 | PM&R Progress Note ---
Subjective HPI/CC On Admission Date Seen by Provider: Nov 26, 2020 Time Seen by Provider: 08:30 Subjective/Events-last exam 11/26/20: Pt did not sleep last night due to urinary frequency Had to do straight in and out cath x4 last night Dr. Marsh will be updated Blood in the urine 1 liter of O2 now but will need a higher level when he is working out CT chest and ABG reviewed 11/25/20: ABG is pending from not being drawn yet CT of the chest will be performed, Dr. Schrader has been updated Bowels moved yesterday 11/24/20: Venofer IV started and I explained why I started that for him Will check CT scan of chest tomorrow and consult Dr Schrader Labs and ABG ordered as well Still very tachypneic with conversation and at rest Monitoring BP 2L/min 11/23/20: No orthostasis today Worked with PT OT BM++ O2 maintained 11/22/20: Hgb 8.6 today Feels better since IVF 500cc yesterday and changed cardiac meds by Dr Cisneros [place] was born and he is thrilled about that Mejia cath still in place Fecal incontinence noted RT left him without O2 since he was good BRIEFLY on room air after Nebs for 1 hour and spot checked and he was at 85% and he was very short of breath just resting 11/21/20: Had episode of hypotension 76/40 with symptoms when got to edge of bed so laid back down, Cardiology notified and given 500cc of IVF Patient is on a waiver due to COVID and hypoxia for slow therapy and only 120 minutes per day Cardizem CD 120mg now after changed by Dr Cisneros ECHO done Stopped Lasix Mejia cath remains in place Review of Systems General: Fatigue Pulmonary: Dyspnea Objective Exam Vital Signs Vital Signs Date Time Temp Pulse Resp B/P (MAP) Pulse Ox O2 Delivery O2 Flow Rate FiO2 11/27/20 05:00 36.6 86 18 123/75 (91) 92 Nasal Cannula 1.00 Capillary Refill : Less Than 3 Seconds General Appearance: No Apparent Distress, WD/WN, Chronically ill, Thin HEENT: PERRL/EOMI, Normal ENT Inspection, Pharynx Normal Neck: Full Range of Motion, Normal Inspection, Non Tender, Supple, Carotid Bruit Respiratory: Chest Non Tender, Lungs Clear, No Respiratory Distress, Accessory Muscle Use, Decreased Breath Sounds Cardiovascular: Regular Rate, Rhythm, No Edema, No Gallop, No JVD, No Murmur, Normal Peripheral Pulses Gastrointestinal: Normal Bowel Sounds, No Organomegaly, No Pulsatile Mass, Non Tender, Soft Back: Normal Inspection, No CVA Tenderness, No Vertebral Tenderness Extremity: Normal Capillary Refill, Normal Inspection, Normal Range of Motion, Non Tender, No Calf Tenderness, No Pedal Edema Neurologic/Psychiatric: Alert, Oriented x3, No Motor/Sensory Deficits, Normal Mood/Affect, Motor Weakness (generalized 2/5 lower extremities, 3/5 upper extremities) Skin: Normal Color, Warm/Dry Lymphatic: No Adenopathy Results/Procedures Lab Patient resulted labs reviewed. FIM Transfers Therapy Code Descriptions/Definitions Functional [place] Measure: 0=Not Assessed/NA 4=Minimal Assistance 1=Total Assistance 5=Supervision or Setup 2=Maximal Assistance 6=Modified [place] 3=Moderate Assistance 7=Complete IndependenceSCALE: Activities may be completed with or without assistive devices. 2-Yvvcmxxoku-gohyukh completes the activity by him/herself with no assistance from a helper. 5-Set-up or Clean-up Assistance-helper sets up or cleans up; patient completes activity. [place] assists only prior to or following the activity. 4-Supervision or Touching Assistance-helper provides verbal cues and/or touching/steadying and/or contact guard assistance as patient completes activity. Assistance may be provided throughout the activity or intermittently. 3-Partial/Moderate Assistance-helper does LESS THAN HALF the effort. [place] lifts, holds or supports trunk or limbs, but provides less than half the effort. 2-Substantial/Maximal Assistance-helper does MORE THAN HALF the effort. [place] lifts or holds trunk or limbs and provides more than half the effort. 4-Spfshubii-wpfaqn does ALL the effort. Patient does none of the effort to complete the activity. Or, the assistance of 2 or more helpers is required for the patient to complete the activity. If activity was not attempted, code reason: 7-Patient Refused. 9-Not Applicable-not attempted and the patient did not perform the activity before the current illness, exacerbation or injury. 10-Not Attempted due to Environmental Limitations-(lack of equipment, weather restraints, etc.). 88-Not Attempted due to Medical Conditions or Safety Concerns. Roll Left to Right (QC): 4 Sit to Lying (QC): 4 Sit to Stand (QC): 2 Chair/Vdq-ys-Bkpxc Xfer(QC): 2 Car Transfer (QC): 2 Gait Training Does the Patient Walk?: No and Walking Goal IS indicated Walk 10 feet (QC): 88 Walk 50 ft with 2 Turns(QC): 88 Walk 150 ft (QC): 88 Walking 10ft/uneven surface-QC: 88 Wheelchair Training Does the Pt Use a Wheelchair?: Yes Wheel 50 ft with 2 turns (QC): 4 Wheel 150 ft (QC): 88 Type of Wheelchair: Manual Stair Training 1 Step (curb) (QC): 88 4 Steps (QC): 88 12 Steps (QC): 88 Balance Picking up an Object (QC): 88 ADL-Treatment Eating (QC): 7 Oral Hygiene (QC): 5 Bathing Location: L Arm, R Arm, Chest, Abdomen, Perineal Area Shower/Bathe Self (QC): 2 Upper Body Dressing (QC): 2 Lower Body Dressing (QC): 1 On/Off Footwear (QC): 2 Toileting Hygiene (QC): 1 Toilet Transfer (QC): 1 Assessment/Plan Assessment and Plan Assess & Plan/Chief Complaint Assessment: Myopathy COVID-19 PNA Urinary retention Mejia cath in place Bowel incontinence Hypoxia O2 dependent BPH Frail Advanced age Plan: IRF protocol but 120 minutes per day to accommodate hypoxia at activity [place] meds Melatonin at night 11/21/20: s/o IVF Monitor hypotension and hypoxia Appreciate Dr Cisneros ECHO done Add Remeron for sleep with Melatonin 11/22/20: No possibility of weaning O2 for now with this patient so needs on 21/06 and will update RT Increase activity 11/23/20: Maintain O2 Nebs Monitor BP 11/24/20: Venofer Labs and ABG and CT chest in am Dr Schrader consultation Maintain O2 Very fragile lungs 11/25/20: CT chest ABG Dr Schrader consultation 11/26/20: Dr Schrader appreciated Dr Marsh appreciated (1) Myopathy (2) COVID-19 (3) Hypoxia (4) Urinary retention (5) Mejia catheter in place (6) BPH (benign prostatic hyperplasia) (7) Bowel incontinence (8) Supplemental oxygen dependent (9) Advanced age (10) Frailty BARB COLLINS DO Nov 26, 2020 05:58
[2020-11-26] MEDS ORDERED: LIDOCAINE UROJET 2% GEL 10 ML PKG ONE (06:10)
[2020-11-26] MEDS ORDERED: LIDOCAINE UROJET 2% GEL 10 ML PKG TOP ONE (06:20)
[2020-11-26 08:30] VITALS: BP 96/56
[2020-11-26] MEDS: FOLIC ACID 1 MG TAB PO SCH (08:33)
[2020-11-26] MEDS: ROFLUMILAST 500 MCG TAB (DALIRESP) NG SCH (08:33)
[2020-11-26] MEDS: predniSONE 20 MG TAB PO SCH (08:34)
[2020-11-26] MEDS: LORATADINE (CLARITIN) 10 MG TAB PO SCH (08:34)
[2020-11-26] MEDS: APIXABAN 5 MG (ELIQUIS) TABLET PO SCH ×2 (08:34→21:12)
[2020-11-26] MEDS: PANTOPRAZOLE 40 MG (PROTONIX) TAB PO SCH (08:34)
[2020-11-26] MEDS: LACTOBACILLUS ACIDOPHILUS (PROBIOTIC) CAPSULE PO SCH ×2 (08:34→21:12)
[2020-11-26] MEDS: IRON SUCROSE 200 MG/10 ML (VENOFER) VIAL IV SCH (08:34)
[2020-11-26] MEDS: CYANOCOBALAMIN 1,000 MCG (VITAMIN B-12) TABLET NG SCH (08:34)
[2020-11-26] MEDS: meTOprolol TARTRATE 25 MG (LOPRESSOR) TABLET PO SCH ×2 (08:37→21:11)
[2020-11-26] MEDS: SILDENAFIL 20 MG (REVATIO) TAB NON-FORMULARY PO SCH ×2 (08:38→13:58)
[2020-11-26] MEDS: polyethylene glycoL POWDER 17 GM (MIRALAX) PACK PO SCH ×2 (08:43→21:12)
[2020-11-26] MEDS: SENNA W/DOCUSATE (SENOKOT S) TABLET PO SCH ×2 (08:43→21:12)
[2020-11-26] MEDS: DOCUSATE SODIUM 100 MG (COLACE) CAP PO SCH ×2 (08:43→21:13)
--- NOTE | 2020-11-26 09:00 | NUR ---
DR MA HERE NEW ORDERS TO INCREASE FLOMAX BID & NEXT BLADDER SCAN <400, REINSERT MCKEON AND WAIT 3 DAYS BEFORE ATTEMPTING TO REMOVE MCKEON AGAIN.
--- NOTE | 2020-11-26 09:39 | Progress Note - Urology ---
Progress Note-Urology Progress Notes/Assess & Plan Progress/Assessment & Plan VOIDING POORLY WITH LARGE PVR. PLAN INCREASE FLOMAX TO BID, REINSERT MCKEON AND LEAVE FOR 3 DAYS AND THEN TRY AGAIN TOV. MAY NEED A CYSTO TO EVALUATE PROSTATE SIZE AND MAYBE ABLE TO ADD URECHOLINE IF SAFE ENOUGH Final Diagnosis URINE RETENTION DENTON MA MD Nov 26, 2020 09:39
[2020-11-26] MEDS: ADVAIR HFA 115/21 MCG INHALER 8 GM IH SCH ×2 (09:56→20:58)
--- NOTE | 2020-11-26 10:04 | Physical Therapy Daily Note ---
PT Daily Note-Current Subjective Pt laying supine in bed visiting with Dr Saxena upon arrival. Pt agrees to PT/OT co-treat. Pain Location: No Pain Reported Mental Status Patient Orientation: Person, Place Transfers SCALE: Activities may be completed with or without assistive devices. 0-Abcxbxnnlt-zxmdkes completes the activity by him/herself with no assistance from a helper. 5-Set-up or Clean-up Assistance-helper sets up or cleans up; patient completes activity. [place] assists only prior to or following the activity. 4-Supervision or Touching Assistance-helper provides verbal cues and/or touching/steadying and/or contact guard assistance as patient completes activity. Assistance may be provided throughout the activity or intermittently. 3-Partial/Moderate Assistance-helper does LESS THAN HALF the effort. [place] lifts, holds or supports trunk or limbs, but provides less than half the effort. 2-Substantial/Maximal Assistance-helper does MORE THAN HALF the effort. [place] lifts or holds trunk or limbs and provides more than half the effort. 6-Bqxrnynop-hskbxr does ALL the effort. Patient does none of the effort to complete the activity. Or, the assistance of 2 or more helpers is required for the patient to complete the activity. If activity was not attempted, code reason: 7-Patient Refused. 9-Not Applicable-not attempted and the patient did not perform the activity before the current illness, exacerbation or injury. 10-Not Attempted due to Environmental Limitations-(lack of equipment, weather restraints, etc.). 88-Not Attempted due to Medical Conditions or Safety Concerns. Roll Left & Right (QC): 4 Lying to Sitting/Side of Bed(Q: 4 Sit to Stand (QC): 2 Weight Bearing Full Weight Bearing Full Weight Bearing Exercises Supine Ex: Rolling, Scooting Seated Therapy Exercises: Sit to stand Treatments Co-treat with PT ([id number]), skills of 2 clinicians required for skilled instruction and care due to extreme SOA, fall risk, and decreased activity tolerance. PT focusing on bed mobility, sit to stand and standing. OT focusing on ADLs, bed mobility, B UE hand placement during sit to stand and standing. Pt states that he is incontinent of bowel. Pt rolls side to side to assist with cleansing buttocks and changing brief. Pt needs only assistance with cleansing and clothing manipulation. Min A for supine to EOB with HOB raised. Assist x2 for SPT from bed to w/c. Pt requires multiple recovery breaks throughout session. Pt propelled w/c into bathroom and sat in front of sink to complete oral care and upper body bathing independently. Monitored pt's BP 96/58 while sitting EOB. Pt then stated that he had been incontinent of bowel. Assist to stand while assistance for clothing manipulation and cleansing. Assist x2 for SPT from w/c to recliner. After session, pt sitting in recliner with call light/phone in reach. All needs met in room. Assessment Current Status: Good Progress Pt was able to put forth more effort and assist more with TF. PT Short Term Goals Short Term Goals Time Frame: Nov 27, 2020 Roll Left & Right: 3 Sit to lyin Lying to sitting on side of be: 3 Sit to stand: 3 Chair/emm-tw-lpsfv transfer: 3 Walk 10 feet: 3 PT Nursing Home Goals Digital Production Operator Goals PT Nursing Home Goals Time Frame: Dec 11, 2020 Roll Left & Right (QC): 4 Sit to Lying (QC): 4 Lying-Sitting on Side/Bed(QC): 4 Sit to Stand (QC): 4 Chair/Smq-bg-Bszsf Xfer(QC): 4 Toilet Transfer (QC): 4 Car Transfer (QC): 3 Does the Patient Walk: Yes Walk 10 feet (QC): 3 Walk 50ft with 2 Turns (QC): 3 Walk 150 ft (QC): 88 Walking 10ft on Uneven Surface: 3 1 Step (curb) (QC): 3 4 Steps (QC): 88 12 Steps (QC): 88 Picking up an Object (QC): 88 Wheel 50 feet with 2 turns (QC: 6 Wheel 150 feet: 6 PT Plan Problem List Problem List: Activity Tolerance, Functional Strength, Safety, Balance, Gait, Transfer, Bed Mobility Treatment/Plan Treatment Plan: Continue Plan of Care Treatment Plan: Bed Mobility, Education, Functional Activity Leti, Functional Strength, Group Therapy, Gait, Safety, Therapeutic Exercise, Transfers Treatment Duration: Dec 11, 2020 Frequency: Modified Program (IRF) Estimated Hrs Per Day: 1 hour per day Patient and/or Family Agrees t: Yes Safety Risks/Education Patient Education: Transfer Techniques, Correct Positioning, Safety Issues Teaching Recipient: Patient Teaching Methods: Discussion Response to Teaching: Verbalize Understanding, Reinforcement Needed Time/GCodes Time In: 900 Time Out: 1000 Total Billed Treatment Time: 60 Total Billed Treatment 1, FA x4 (60m) KARYN BAKER MANAGER CRISIS Nov 26, 2020 10:03
--- NOTE | 2020-11-26 10:30 | Pulmonary Progress Note ---
Subjective Time Seen by a Provider: 10:29 Subjective/Events-last exam No complications noted. Sepsis Event Evaluation Height, Weight, BMI Height: '" Weight: lbs. oz. kg; 23.39 BMI Method: Exam Exam Vital Signs Date Time Temp Pulse Resp B/P (MAP) Pulse Ox O2 Delivery O2 Flow Rate FiO2 11/26/20 09:56 95 Nasal Cannula 4.00 11/26/20 09:00 Nasal Cannula 1.00 11/26/20 08:30 107 96/56 (69) 93 Nasal Cannula 1.00 11/26/20 06:39 96 Nasal Cannula 1.00 11/26/20 05:27 37.0 81 22 114/72 (86) 94 Nasal Cannula 1.00 11/25/20 21:30 Nasal Cannula 1.00 11/25/20 21:15 37.0 92 20 109/70 (83) 96 Nasal Cannula 1.00 11/25/20 17:29 36.8 97 20 140/72 (94) 96 Nasal Cannula 1.00 I & O 11/26/20 07:00 Intake Total 2200 ml Output Total 2525 ml Balance -325 ml Height & Weight Height: '" Weight: lbs. oz. kg; 23.39 BMI Method: General Appearance: No Apparent Distress, WD/WN, Chronically ill, Thin HEENT: PERRL/EOMI, Normal ENT Inspection, Pharynx Normal Neck: Full Range of Motion, Normal Inspection, Non Tender, Supple, Carotid Bruit Respiratory: Chest Non Tender, Lungs Clear, No Respiratory Distress, Accessory Muscle Use, Decreased Breath Sounds Cardiovascular: Regular Rate, Rhythm, No Edema, No Gallop, No JVD, No Murmur, Normal Peripheral Pulses Capillary Refill: Less Than 3 Seconds Extremity: Normal Capillary Refill, Normal Inspection, Normal Range of Motion, Non Tender, No Calf Tenderness, No Pedal Edema Neurologic/Psychiatric: Alert, Oriented x3, No Motor/Sensory Deficits, Normal Mood/Affect, Motor Weakness (generalized 2/5 lower extremities, 3/5 upper extr emities) Skin: Normal Color, Warm/Dry Lymphatic: No Adenopathy Results Lab Laboratory Tests 11/25/20 05:45 Assessment/Plan Assessment/Plan COVID 19 PNA with hypoxia - recovering -oxygen -CXR and labs reviewed -Albuterol and advair -Prednisone Urinary retention -YARELI Holt DO Nov 26, 2020 10:30
[2020-11-26] MEDS: TAMSULOSIN 0.4 MG (FLOMAX) CAP PO SCH ×2 (10:37→21:12)
--- NOTE | 2020-11-26 11:57 | Occupational Ther Daily Note ---
OT Current Status-Daily Note Subjective Pt alert, lying in bed. Pt agrees to therapy. No c/o pain at this time. Physician directs therapy to up O2 to 4L while working with therapy then lower back to 1L. Mental Status/Objective Patient Orientation: Person, Place, Time, Situation Attachments: IV, Oxygen (1L) ADL-Treatment Co-treat with PT ([id number]), skills of 2 clinicians required for skilled in struction and care due to extreme SOA, fall risk, and decreased activity tolerance. PT focusing on bed mobility, sit to stand and standing. OT focusing on ADLs, bed mobility, B UE hand placement during sit to stand and standing. Pt states that he is incontinent of bowel. Pt rolls side to side to assist with cleansing buttocks and changing brief. Pt needs only assistance with cleansing and clothing manipulation. Min A for supine to EOB with HOB raised. Assist x2 for SPT from bed to w/c. Pt requires multiple recovery breaks throughout session. Pt propelled w/c into bathroom and sat in front of sink to complete oral care and upper body bathing independently. Monitored pt's BP 96/58 while sitting EOB. Pt then stated that he had been incontinent of bowel. Assist to stand while assistance for clothing manipulation and cleansing. Assist x2 for SPT from w/c to recliner. After session, pt sitting in recliner with call light/phone in reach. All needs met in room. Therapy Code Descriptions/Definitions Functional [place] Measure: 0=Not Assessed/NA 4=Minimal Assistance 1=Total Assistance 5=Supervision or Setup 2=Maximal Assistance 6=Modified [place] 3=Moderate Assistance 7=Complete IndependenceSCALE: Activities may be completed with or without assistive devices. 8-Ilkuzlbofi-nspucce completes the activity by him/herself with no assistance from a helper. 5-Set-up or Clean-up Assistance-helper sets up or cleans up; patient completes activity. [place] assists only prior to or following the activity. 4-Supervision or Touching Assistance-helper provides verbal cues and/or touching/steadying and/or contact guard assistance as patient completes activity. Assistance may be provided throughout the activity or intermittently. 3-Partial/Moderate Assistance-helper does LESS THAN HALF the effort. [place] lifts, holds or supports trunk or limbs, but provides less than half the effort. 2-Substantial/Maximal Assistance-helper does MORE THAN HALF the effort. [place] lifts or holds trunk or limbs and provides more than half the effort. 9-Hqakoosde-vbnytv does ALL the effort. Patient does none of the effort to complete the activity. Or, the assistance of 2 or more helpers is required for the patient to complete the activity. If activity was not attempted, code reason: 7-Patient Refused. 9-Not Applicable-not attempted and the patient did not perform the activity before the current illness, exacerbation or injury. 10-Not Attempted due to Environmental Limitations-(lack of equipment, weather restraints, etc.). 88-Not Attempted due to Medical Conditions or Safety Concerns. Oral Hygiene (QC): 6 Lower Body Dressing (QC): 1 On/Off Footwear: 1 Toileting Hygiene (QC): 1 OT Short Term Goals Short Term Goals Time Frame: Dec 11, 2020 Shower/bathe self: 4 Upper body dressin Lower body dressin OT World Geography Teacher Goals Residential Goals Time Frame: Dec 20, 2020 Eating (QC): 6 Oral Hygiene (QC): 6 Toileting Hygiene (QC): 6 Shower/Bathe Self (QC): 6 Upper Body Dressing (QC): 6 Lower Body Dressing (QC): 6 On/Off Footwear (QC): 6 Additional Goals: 1-Demonstrate ADL Tasks, 2-Verbalize Understanding, 3- ImproveStrength/Leti 1=Demonstrate adherence to instructed precautions during ADL tasks. 2=Patient will verbalize/demonstrate understanding of assistive devices/modifications for ADL. 3=Patient will improve strength/tolerance for activity to enable patient to perform ADL's. OT Education/Plan Problem List/Assessment Assessment: Decreased Activ Tolerance, Decreased UE Strength, Dependent Transfers, Impaired Funct Balance, Impaired Self-Care Skills Discharge Recommendations Plan/Recommendations: Continue POC Treatment Plan/Plan of Care Patient would benefit from OT for education, treatment and training to promote independence in ADL's, mobility, safety and/or upper extremity function for ADL's. Plan of Care: ADL Retraining, Functional Mobility, Group Exercise/Act as Ind, UE Funct Exercise/Act Treatment Duration: Dec 20, 2020 Frequency: Modified Program (IRF) Estimated Hrs Per Day: 1 hour per day Rehab Potential: Fair Time/GCodes Start Time: 09:00 Stop Time: 10:00 Total Time Billed (hr/min): 60 Billed Treatment Time 1 visit-ADL 3 (45 min) FA 1 (15 min) co-treat with PT [id number] VIOLET BACA Nov 26, 2020 11:57
--- NOTE | 2020-11-26 12:55 | Progress Note - Urology ---
Progress Note-Urology Progress Notes/Assess & Plan Progress/Assessment & Plan CYSTOSCOPY TOMORROW. FULLY EXPLAINED TO PATIENT Final Diagnosis RETENTION DENTON MA MD Nov 26, 2020 12:55
[2020-11-26 14:00] VITALS: BP 99/57
--- NOTE | 2020-11-26 14:29 | NUR ---
CM/SS ADMISSION Patient admitted to ARU 11/20/20 from [facility] Myopathy. Per his spouse Opal, patient presented to [facility] 09/24 for Covid 19 and complications, was intubated 09/26, and sent to [place] 10/08 with vent wean 10/11. He was IADL prior to acute onset of illness and did not use any assistive devices for mobility/activities. Other comorbidities are, in part, hypoxia, urinary retention with indwelling catheter, bowel incontinence, new supplemental O2 dependence, lengthy illness/hospitalization/advance age/frailty. Patient is in droplet isolation, interviewed spouse Opal Zelyaa by phone. The desire would be that patient would return home once recovered and able to do so. Opal would be primary/only caregiver, their children do not reside locally. PCP: Dr. Shante Chua MD [facility] [place], [place] PH: [phone] PHARMACY: [facility], Mail [facility] INSURANCE: Medicare, [facility] DME: Has FWW, shower bench, wheelchair, canes all from Opal's mother. BARRIERS TO DISCHARGE: Patient very debilitated, dependent for care, indwelling valdes, bowel incontinence, in droplet isolation. Opal indicates she would be the sole caregiver for him at home. On a positive note, their home is one level, no steps for entry, in case wheelchair ambulation is primary. CONTACTS: Opal Zelaya, Spouse [id number] [place] [address] HM: [phone] MOBILE: [phone] Opal indicates patient has 3 children and she has one, and that none live nearby. Opal understands the purpose and process of the weekly patient care conference and that patient's first review will be tomorrow, November 27. Fully anticipate his continued stay on ARU with next review Friday, December 04, 2020.
--- NOTE | 2020-11-26 15:17 | Occupational Ther Daily Note ---
OT Current Status-Daily Note Subjective Pt alert, lying in bed. Pt agrees to therapy. No c/o pain at this time. Mental Status/Objective Patient Orientation: Person, Place, Time, Situation Attachments: IV, Oxygen (1L) ADL-Treatment Therapy Code Descriptions/Definitions Functional [place] Measure: 0=Not Assessed/NA 4=Minimal Assistance 1=Total Assistance 5=Supervision or Setup 2=Maximal Assistance 6=Modified [place] 3=Moderate Assistance 7=Complete IndependenceSCALE: Activities may be completed with or without assistive devices. 5-Wdpmhxdajp-cwqqnau completes the activity by him/herself with no assistance from a helper. 5-Set-up or Clean-up Assistance-helper sets up or cleans up; patient completes activity. [place] assists only prior to or following the activity. 4-Supervision or Touching Assistance-helper provides verbal cues and/or touching/steadying and/or contact guard assistance as patient completes activity. Assistance may be provided throughout the activity or intermittently. 3-Partial/Moderate Assistance-helper does LESS THAN HALF the effort. [place] lifts, holds or supports trunk or limbs, but provides less than half the effort. 2-Substantial/Maximal Assistance-helper does MORE THAN HALF the effort. [place] lifts or holds trunk or limbs and provides more than half the effort. 8-Qbpszkdbk-ckzilk does ALL the effort. Patient does none of the effort to complete the activity. Or, the assistance of 2 or more helpers is required for the patient to complete the activity. If activity was not attempted, code reason: 7-Patient Refused. 9-Not Applicable-not attempted and the patient did not perform the activity before the current illness, exacerbation or injury. 10-Not Attempted due to Environmental Limitations-(lack of equipment, weather restraints, etc.). 88-Not Attempted due to Medical Conditions or Safety Concerns. Other Treatment Co-treat with PT ([phone]), skills of 2 clinicians required for skilled instruction and care due to extreme SOA, fall risk, and decreased activity tolerance. PT focusing on B LE strengthening while OT focusing on B UE strengthening. Pt give B UE exercises against gravity HEP, 1 set 10 reps of each. Skilled instruction for technique and modifications when necessary. After therapy, pt lying on L side with call light/phone in reach. All needs met in room. OT Short Term Goals Short Term Goals Time Frame: Dec 11, 2020 Shower/bathe self: 4 Upper body dressin Lower body dressin OT Office Spec Goals Office Spec Goals Time Frame: Dec 20, 2020 Eating (QC): 6 Oral Hygiene (QC): 6 Toileting Hygiene (QC): 6 Shower/Bathe Self (QC): 6 Upper Body Dressing (QC): 6 Lower Body Dressing (QC): 6 On/Off Footwear (QC): 6 Additional Goals: 1-Demonstrate ADL Tasks, 2-Verbalize Understanding, 3- ImproveStrength/Leti 1=Demonstrate adherence to instructed precautions during ADL tasks. 2=Patient will verbalize/demonstrate understanding of assistive devices/modifications for ADL. 3=Patient will improve strength/tolerance for activity to enable patient to perform ADL's. OT Education/Plan Problem List/Assessment Assessment: Decreased Activ Tolerance, Decreased UE Strength, Impaired Self- Care Skills Discharge Recommendations Plan/Recommendations: Continue POC Treatment Plan/Plan of Care Patient would benefit from OT for education, treatment and training to promote independence in ADL's, mobility, safety and/or upper extremity function for ADL 's. Plan of Care: ADL Retraining, Functional Mobility, Group Exercise/Act as Ind, UE Funct Exercise/Act Treatment Duration: Dec 20, 2020 Frequency: Modified Program (IRF) Estimated Hrs Per Day: 1 hour per day Rehab Potential: Fair Time/GCodes Start Time: 13:00 Stop Time: 13:30 Total Time Billed (hr/min): 30 Billed Treatment Time 1 visit-EX 2 (30 min) co-treat with PT [id number] VIOLET BACA Nov 26, 2020 15:17
--- NOTE | 2020-11-26 15:41 | Physical Therapy Daily Note ---
PT Daily Note-Current Subjective Pt laying Supine in bed and reports fatigue. Pt agrees to PT/OT co-treat for Ex. Mental Status Patient Orientation: Person, Place Transfers SCALE: Activities may be completed with or without assistive devices. 0-Yfvesounkx-zxskvww completes the activity by him/herself with no assistance from a helper. 5-Set-up or Clean-up Assistance-helper sets up or cleans up; patient completes activity. [place] assists only prior to or following the activity. 4-Supervision or Touching Assistance-helper provides verbal cues and/or touching/steadying and/or contact guard assistance as patient completes activity. Assistance may be provided throughout the activity or intermittently. 3-Partial/Moderate Assistance-helper does LESS THAN HALF the effort. [place] lifts, holds or supports trunk or limbs, but provides less than half the effort. 2-Substantial/Maximal Assistance-helper does MORE THAN HALF the effort. [place] lifts or holds trunk or limbs and provides more than half the effort. 4-Imrluxunt-elcufl does ALL the effort. Patient does none of the effort to complete the activity. Or, the assistance of 2 or more helpers is required for the patient to complete the activity. If activity was not attempted, code reason: 7-Patient Refused. 9-Not Applicable-not attempted and the patient did not perform the activity before the current illness, exacerbation or injury. 10-Not Attempted due to Environmental Limitations-(lack of equipment, weather restraints, etc.). 88-Not Attempted due to Medical Conditions or Safety Concerns. Weight Bearing Full Weight Bearing Full Weight Bearing Exercises Supine Ex: Ankle pumps, Quad Set, Glut sets, Heel Slides, Straight leg raise, Hip abd/add Supine Reps: 15 Treatments Skills of 2 clinicians required for skilled instruction and care due to extreme SOA, fall risk, and decreased activity tolerance. Pt completes Supine LE & UE EX with RB as needed. Pt has all needs met, all needs met. Assessment Current Status: Good Progress Pt fatigues and needs RB to recover. PT Short Term Goals Short Term Goals Time Frame: Nov 27, 2020 Roll Left & Right: 3 Sit to lyin Lying to sitting on side of be: 3 Sit to stand: 3 Chair/tsw-oy-emtji transfer: 3 Walk 10 feet: 3 PT Chartered Financial Analyst Goals Fdc Goals PT Chartered Financial Analyst Goals Time Frame: Dec 11, 2020 Roll Left & Right (QC): 4 Sit to Lying (QC): 4 Lying-Sitting on Side/Bed(QC): 4 Sit to Stand (QC): 4 Chair/Phc-jk-Uznfq Xfer(QC): 4 Toilet Transfer (QC): 4 Car Transfer (QC): 3 Does the Patient Walk: Yes Walk 10 feet (QC): 3 Walk 50ft with 2 Turns (QC): 3 Walk 150 ft (QC): 88 Walking 10ft on Uneven Surface: 3 1 Step (curb) (QC): 3 4 Steps (QC): 88 12 Steps (QC): 88 Picking up an Object (QC): 88 Wheel 50 feet with 2 turns (QC: 6 Wheel 150 feet: 6 PT Plan Problem List Problem List: Activity Tolerance, Functional Strength, Safety, Transfer Treatment/Plan Treatment Plan: Continue Plan of Care Treatment Plan: Bed Mobility, Education, Functional Activity Leti, Functional Strength, Group Therapy, Gait, Safety, Therapeutic Exercise, Transfers Treatment Duration: Dec 11, 2020 Frequency: Modified Program (IRF) Estimated Hrs Per Day: 1 hour per day Patient and/or Family Agrees t: Yes Safety Risks/Education Patient Education: Correct Positioning, Safety Issues Teaching Recipient: Patient Teaching Methods: Discussion Response to Teaching: Verbalize Understanding Time/GCodes Time In: 1300 Time Out: 1330 Total Billed Treatment Time: 30 Total Billed Treatment 1, EX x2 (30m) Co-treat with OT for 60m OLIVIAKARYN STUDENT DEVELOPMENT DEAN Nov 26, 2020 15:41
[2020-11-26 16:50] VITALS: BP 111/68
--- NOTE | 2020-11-26 17:03 | Progress Note - Cardiology ---
Cardiology SOAP Progress Note Subjective: Gen malaise and weakness Poor stamina No cp or palp or syncope No shortness of breath at rest No n/v Objective: I&O/Vital Signs 11/26/20 11/26/20 11/26/20 11/26/20 05:27 06:39 08:30 09:00 Temp 37.0 Pulse 81 107 Resp 22 B/P (MAP) 114/72 (86) 96/56 (69) Pulse Ox 94 96 93 O2 Delivery Nasal Cannula Nasal Cannula Nasal Cannula Nasal Cannula O2 Flow Rate 1.00 1.00 1.00 1.00 11/26/20 11/26/20 11/26/20 09:56 14:00 16:50 Temp 36.8 Pulse 104 86 Resp 16 B/P (MAP) 99/57 (71) 111/68 (82) Pulse Ox 95 92 93 O2 Delivery Nasal Cannula Nasal Cannula O2 Flow Rate 4.00 1.00 11/26/20 00:00 Intake Total 1550 ml Output Total 650 ml Balance 900 ml Constitutional: AAO x 3, well-developed, well-nourished Respiratory: No accessory muscle use; other (good bilat air entry, somewhat diminished at the bases) Cardiovascular: irregularly irregular, S1 and S2, systolic murmur (2/6 SHERMAN at card base) Gastrointestional: No tender; soft; No guarding, No rebound; audible bowel sounds Extremities: No clubbing, No cyanosis, No significant edema Neurologic/Psychiatric: oriented x 3, other (moves all limbs) Skin: No rash on exposed areas, No ulcerations on exposed areas Results/Procedures: Labs Laboratory Tests 11/25/20 05:45 A/P: Assessment: PAF, currently NSR S/p ac resp failure due to COVID-19 in early 2019 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 Diuretics stopped on 11/21/20. Sildenafil reduced on 11/23/20 Plan: * Stop sildenafil because of low bp * Continue bb * Monitor labs from time to time LIONEL LUONG MD FACP [facility] Nov 26, 2020 17:03
[2020-11-26 21:10] VITALS: BP 108/68
[2020-11-26] MEDS: MELATONIN 10 MG TABLET PO SCH (21:12)
[2020-11-26] MEDS: MIRTAZAPINE 15 MG (REMERON) TAB PO SCH (21:12)
[2020-11-26] MEDS: MONTELUKAST 10 MG (SINGULAIR) TAB PO SCH (21:12)
[2020-11-27 05:00] VITALS: BP 123/75
--- NOTE | 2020-11-27 05:51 | PM&R Progress Note ---
Subjective HPI/CC On Admission Date Seen by Provider: Nov 27, 2020 Time Seen by Provider: 09:00 Subjective/Events-last exam 11/27/20: Pt remains on 1 liter per minute of oxygen Appears to be much improved today Cystoscope done today showing large prostate Proscar along with Flomax was initiated Cath was done and obtained 1000cc of urine Nystatin cream and powder will be initiated Overall much improved 11/26/20: Pt did not sleep last night due to urinary frequency Had to do straight in and out cath x4 last night Dr. Marsh will be updated Blood in the urine 1 liter of O2 now but will need a higher level when he is working out CT chest and ABG reviewed 11/25/20: ABG is pending from not being drawn yet CT of the chest will be performed, Dr. Schrader has been updated Bowels moved yesterday 11/24/20: Venofer IV started and I explained why I started that for him Will check CT scan of chest tomorrow and consult Dr Schrader Labs and ABG ordered as well Still very tachypneic with conversation and at rest Monitoring BP 2L/min 11/23/20: No orthostasis today Worked with PT OT BM++ O2 maintained 11/22/20: Hgb 8.6 today Feels better since IVF 500cc yesterday and changed cardiac meds by Dr Cisneros [place] was born and he is thrilled about that Mejia cath still in place Fecal incontinence noted RT left him without O2 since he was good BRIEFLY on room air after Nebs for 1 hour and spot checked and he was at 85% and he was very short of breath just resting 11/21/20: Had episode of hypotension 76/40 with symptoms when got to edge of bed so laid b ack down, Cardiology notified and given 500cc of IVF Patient is on a waiver due to COVID and hypoxia for slow therapy and only 120 minutes per day Cardizem CD 120mg now after changed by Dr Cisneros ECHO done Stopped Lasix Mejia cath remains in place Review of Systems General: Fatigue, Malaise Pulmonary: Dyspnea, Cough Genitourinary: Retention Neurological: Weakness Objective Exam Vital Signs Vital Signs Date Time Temp Pulse Resp B/P (MAP) Pulse Ox O2 Delivery O2 Flow Rate FiO2 11/29/20 05:36 36.4 84 18 116/69 (85) 97 Nasal Cannula 1.00 Capillary Refill : Less Than 3 Seconds General Appearance: No Apparent Distress, WD/WN, Chronically ill, Thin HEENT: PERRL/EOMI, Normal ENT Inspection, Pharynx Normal Neck: Full Range of Motion, Normal Inspection, Non Tender, Supple, Carotid Bruit Respiratory: Chest Non Tender, Lungs Clear, No Respiratory Distress, Accessory Muscle Use, Decreased Breath Sounds Cardiovascular: Regular Rate, Rhythm, No Edema, No Gallop, No JVD, No Murmur, Normal Peripheral Pulses Gastrointestinal: Normal Bowel Sounds, No Organomegaly, No Pulsatile Mass, Non Tender, Soft Back: Normal Inspection, No CVA Tenderness, No Vertebral Tenderness Extremity: Normal Capillary Refill, Normal Inspection, Normal Range of Motion, Non Tender, No Calf Tenderness, No Pedal Edema Neurologic/Psychiatric: Alert, Oriented x3, No Motor/Sensory Deficits, Normal Mood/Affect, Motor Weakness (generalized 2/5 lower extremities, 3/5 upper extremities) Skin: Normal Color, Warm/Dry Lymphatic: No Adenopathy Results/Procedures Lab Patient resulted labs reviewed. FIM Transfers Therapy Code Descriptions/Definitions Functional [place] Measure: 0=Not Assessed/NA 4=Minimal Assistance 1=Total Assistance 5=Supervision or Setup 2=Maximal Assistance 6=Modified [place] 3=Moderate Assistance 7=Complete IndependenceSCALE: Activities may be completed with or without assistive devices. 3-Gdzbxlslzc-untvkgz completes the activity by him/herself with no assistance from a helper. 5-Set-up or Clean-up Assistance-helper sets up or cleans up; patient completes activity. [place] assists only prior to or following the activity. 4-Supervision or Touching Assistance-helper provides verbal cues and/or touching/steadying and/or contact guard assistance as patient completes activity. Assistance may be provided throughout the activity or intermittently. 3-Partial/Moderate Assistance-helper does LESS THAN HALF the effort. [place] lifts, holds or supports trunk or limbs, but provides less than half the effort. 2-Substantial/Maximal Assistance-helper does MORE THAN HALF the effort. [place] lifts or holds trunk or limbs and provides more than half the effort. 5-Oysrjxkhh-xcahde does ALL the effort. Patient does none of the effort to complete the activity. Or, the assistance of 2 or more helpers is required for the patient to complete the activity. If activity was not attempted, code reason: 7-Patient Refused. 9-Not Applicable-not attempted and the patient did not perform the activity before the current illness, exacerbation or injury. 10-Not Attempted due to Environmental Limitations-(lack of equipment, weather restraints, etc.). 88-Not Attempted due to Medical Conditions or Safety Concerns. Roll Left to Right (QC): 4 Sit to Lying (QC): 4 Sit to Stand (QC): 2 Chair/Tkq-mk-Iiqve Xfer(QC): 2 Car Transfer (QC): 2 Gait Training Does the Patient Walk?: No and Walking Goal IS indicated Walk 10 feet (QC): 88 Walk 50 ft with 2 Turns(QC): 88 Walk 150 ft (QC): 88 Walking 10ft/uneven surface-QC: 88 Wheelchair Training Does the Pt Use a Wheelchair?: Yes Wheel 50 ft with 2 turns (QC): 4 Wheel 150 ft (QC): 88 Type of Wheelchair: Manual Stair Training 1 Step (curb) (QC): 88 4 Steps (QC): 88 12 Steps (QC): 88 Balance Picking up an Object (QC): 88 ADL-Treatment Eating (QC): 7 Oral Hygiene (QC): 6 Bathing Location: L Arm, R Arm, Chest, Abdomen, Perineal Area Shower/Bathe Self (QC): 2 Upper Body Dressing (QC): 2 Lower Body Dressing (QC): 1 On/Off Footwear (QC): 1 Toileting Hygiene (QC): 1 Toilet Transfer (QC): 1 Assessment/Plan Assessment and Plan Assess & Plan/Chief Complaint Assessment: Myopathy COVID-19 PNA Urinary retention Mejia cath in place Bowel incontinence Hypoxia O2 dependent BPH Frail Advanced age Plan: IRF protocol but 120 minutes per day to accommodate hypoxia at activity [place] meds Melatonin at night 11/21/20: s/o IVF Monitor hypotension and hypoxia Appreciate Dr Cisneros ECHO done Add Remeron for sleep with Melatonin 11/22/20: No possibility of weaning O2 for now with this patient so needs on 21/06 and will update RT Increase activity 11/23/20: Maintain O2 Nebs Monitor BP 11/24/20: Venofer Labs and ABG and CT chest in am Dr Schrader consultation Maintain O2 Very fragile lungs 11/25/20: CT chest ABG Dr Schrader consultation 11/26/20: Dr Schrader appreciated Dr Marsh appreciated 11/27/20: Dr Marsh appreciated Monitor O2 (1) Myopathy (2) COVID-19 (3) Hypoxia (4) Urinary retention (5) Mejia catheter in place (6) BPH (benign prostatic hyperplasia) (7) Bowel incontinence (8) Supplemental oxygen dependent (9) Advanced age (10) Frailty BARB COLLINS DO Nov 27, 2020 05:51
[2020-11-27] MEDS ORDERED: LIDOCAINE UROJET 2% GEL 10 ML PKG ONE (07:02)
--- NOTE | 2020-11-27 07:21 | Progress Note-Pre Operative ---
Pre-Operative Progress Note H&P Reviewed The H&P was reviewed, patient examined and no changes noted. Date Seen by Provider: Nov 27, 2020 Time Seen by Provider: 07:20 Date H&P Reviewed: Nov 27, 2020 Time H&P Reviewed: 07:20 Pre-Operative Diagnosis: BPH AND RETENTION DENTON MA MD Nov 27, 2020 07:21
--- NOTE | 2020-11-27 07:55 | Progress Note-Post Operative ---
Post-Operative Progess Note Surgeon (s)/Nursing Administrator (s) Surgeon DENTON MA MD Nursing Administrator: NONE Pre-Operative Diagnosis BPH AND RETENTION Post-Operative Diagnosis SAME Procedure & Operative Findings Date of Procedure 11/27/20 Procedure Performed/Findings CYSTOSCOPY Anesthesia Type LOCAL Estimated Blood Loss Estimated blood loss (mL): NONE Specimens/Packing Specimens Removed NONE Packing: NONE DENTON MA MD Nov 27, 2020 07:55
--- NOTE | 2020-11-27 09:04 | Pulmonary Progress Note ---
Standard Progress Note Progress Notes Date Seen by Provider: Nov 27, 2020 Time Seen by Provider: 08:00 No complications noted. Assessment & Plan COVID 19 PNA with hypoxia - recovering -oxygen -CXR and labs reviewed -Albuterol and advair -Prednisone Mass like infiltrate per CT of chest -Repeat CT in 3 mo Urinary retention -YARELI Holt DO Nov 27, 2020 09:04
[2020-11-27] MEDS: FOLIC ACID 1 MG TAB PO SCH (09:18)
[2020-11-27] MEDS: LACTOBACILLUS ACIDOPHILUS (PROBIOTIC) CAPSULE PO SCH ×2 (09:18→21:31)
[2020-11-27] MEDS: PANTOPRAZOLE 40 MG (PROTONIX) TAB PO SCH (09:18)
[2020-11-27] MEDS: TAMSULOSIN 0.4 MG (FLOMAX) CAP PO SCH ×2 (09:18→21:31)
[2020-11-27] MEDS: CYANOCOBALAMIN 1,000 MCG (VITAMIN B-12) TABLET NG SCH (09:18)
[2020-11-27] MEDS: meTOprolol TARTRATE 25 MG (LOPRESSOR) TABLET PO SCH ×2 (09:19→21:31)
[2020-11-27] MEDS: APIXABAN 5 MG (ELIQUIS) TABLET PO SCH ×2 (09:19→21:32)
[2020-11-27] MEDS: ROFLUMILAST 500 MCG TAB (DALIRESP) NG SCH (09:19)
[2020-11-27] MEDS: predniSONE 20 MG TAB PO SCH (09:19)
[2020-11-27] MEDS: LORATADINE (CLARITIN) 10 MG TAB PO SCH (09:20)
[2020-11-27] MEDS: DOCUSATE SODIUM 100 MG (COLACE) CAP PO SCH ×2 (09:24→19:41)
[2020-11-27] MEDS: polyethylene glycoL POWDER 17 GM (MIRALAX) PACK PO SCH ×2 (09:25→19:42)
[2020-11-27] MEDS: SENNA W/DOCUSATE (SENOKOT S) TABLET PO SCH ×2 (09:25→19:43)
[2020-11-27] MEDS: FINASTERIDE (PROSCAR) 5 MG TAB PO SCH (09:53)
[2020-11-27] MEDS: ADVAIR HFA 115/21 MCG INHALER 8 GM IH SCH ×2 (10:36→20:03)
[2020-11-27] MEDS: RT-ALBUTEROL/IPRATROPIUM 3 ML (DUONEB) VIAL IH SCH ×2 (10:36→19:58)
--- NOTE | 2020-11-27 11:30 | Occupational Ther Daily Note ---
OT Current Status-Daily Note Subjective OT/ PT co-treat: [id number] (60). OT addresses UE movement, ADLs, problem solving, sequencing, while PT addresses LE movement, fx transfers, LE strength, fx activity tolerance. Pt seen in bed, denies pain, no SOB. Pt agrees to OT/ PT co-treat, desiring sponge bath rather than shower. Pt's 02 turned up by PT from 1 to 4 L during tx. OT individual tx: [id number] (45): Pt desires to shave this pm. Pt's nurse is aware. Pt denies pain. Mental Status/Objective Patient Orientation: Person, Place, Situation, Normal For Age Attachments: Oxygen ADL-Treatment Therapy Code Descriptions/Definitions Functional [place] Measure: 0=Not Assessed/NA 4=Minimal Assistance 1=Total Assistance 5=Supervision or Setup 2=Maximal Assistance 6=Modified [place] 3=Moderate Assistance 7=Complete IndependenceSCALE: Activities may be completed with or without assistive devices. 3-Kgkakqpknq-icoymxb completes the activity by him/herself with no assistance from a helper. 5-Set-up or Clean-up Assistance-helper sets up or cleans up; patient completes activity. [place] assists only prior to or following the activity. 4-Supervision or Touching Assistance-helper provides verbal cues and/or touching/steadying and/or contact guard assistance as patient completes activity. Assistance may be provided throughout the activity or intermittently. 3-Partial/Moderate Assistance-helper does LESS THAN HALF the effort. [place] lift s, holds or supports trunk or limbs, but provides less than half the effort. 2-Substantial/Maximal Assistance-helper does MORE THAN HALF the effort. [place] lifts or holds trunk or limbs and provides more than half the effort. 4-Xhwsahqzy-hjrbfj does ALL the effort. Patient does none of the effort to complete the activity. Or, the assistance of 2 or more helpers is required for the patient to complete the activity. If activity was not attempted, code reason: 7-Patient Refused. 9-Not Applicable-not attempted and the patient did not perform the activity before the current illness, exacerbation or injury. 10-Not Attempted due to Environmental Limitations-(lack of equipment, weather restraints, etc.). 88-Not Attempted due to Medical Conditions or Safety Concerns. Eating (QC): 6 Oral Hygiene (QC): 5 (s/u EOB) Bathing Location: L Arm, R Arm, L Upper Leg, R Upper Leg, Chest, Abdomen Shower/Bathe Self (QC): 1 (TD due to the need of Ax2 during bottom/ tati care. Pt able to complete UB/ slight LB (thighs) requires assist with calves-feet, bottom, tati area. Noted bloodied breif in tati area- nursing notified. Skin barrier ointment applied to tati/ bottom) Upper Body Dressing (QC): 5 (s/u) Lower Body Dressing (QC): 1 (TD due to need of Ax2 in stance.) On/Off Footwear: 1 (TD due to decreased balance/ breath support.) Toileting Hygiene (QC): 1 (TD due to need of Ax2.) Toilet Transfer (QC): 7 (Denies, stating he is having BM in brief; pt denies going to toilet/ commode as does not believe he is able to regulate BM. ) Other Treatment Pt in bed. Pt supine with BP [id number], pt sits EOB and BP reads 101/64. Denies dizziness. Pt agrees to sponge bath, completes EOB with fair balance, requires one hand on bed for support (pt's feed unable to touch floor due to heightened bed). Pt completes UB washing/ tati area (minimally), and thighs; requires assist with other areas. Pt completes all tasks with increased time. Ax1 to sit to stand with cues for hand placement while OT addresses toilet hygiene/ bottom care and cream and donning LB dressing. Pt sit to stand 3x through session, with SPT to R side to recliner chair with Ax2 (OT to guide hips). 02 monitored with pt at 92% and able to recover to 97% within 30 sec and cues for breath. Pt requires assist to adjust/ position self. Pt requests shaving later this date, nursing is notified and agrees to shaving task. Pt is given HEP and resistance band. Educated on completing 3 reps of resistance to 3 reps of AROM. Pt monitors breath throughout, taking breaks as needed, completes 5/[address] Pt in recliner with all needs met, call light in reach. Pt is shaved with TD due to safety/ medication concern. Pt is educated on safety measures at home during this time. Post shave, pt washes face and lotions. Pt desires to sit EOB, upon movement, pt states his brief is bunched in the front and states it feels as though it's too tight. Pt's brief is doffed, red line on L thigh crease and around scrotum. Cream applied to this area and educated on movement/ safety to this area and call light for adjustment. Pt able to sit to stand 3x to reach hips toward HOB with mod A sit to stand and max A hip movement by OT toward HOB. Pt then reaches sit to supine with mod A for BLE movement. Pt requires adjustment toward HOB, pt bends knees/ pulls with UEs and is able to complete with multiple trials and adjustment of emmy pad by OT toward HOB. Pt states brief area feels much better. Pt is in bed with HOB elevated, all needs met, call light in reach. Education OT Patient Education: Correct positioning, Exercise program, Home exercise program, Purpose of tx/functional activities, Safety issues, Transfer techniques Teaching Recipient: Patient Teaching Methods: Demonstration, Handout, Discussion Response to Teaching: Verbalize Understanding, Return Demonstration, Reinforcement Needed OT Short Term Goals Short Term Goals Time Frame: Dec 11, 2020 Shower/bathe self: 4 Upper body dressin Lower body dressin OT M[facility] Goals Jewelry Bench Worker Goals Time Frame: Dec 20, 2020 Eating (QC): 6 Oral Hygiene (QC): 6 Toileting Hygiene (QC): 6 Shower/Bathe Self (QC): 6 Upper Body Dressing (QC): 6 Lower Body Dressing (QC): 6 On/Off Footwear (QC): 6 Additional Goals: 1-Demonstrate ADL Tasks, 2-Verbalize Understanding, 3- ImproveStrength/Leti 1=Demonstrate adherence to instructed precautions during ADL tasks. 2=Patient will verbalize/demonstrate understanding of assistive devices/mod ifications for ADL. 3=Patient will improve strength/tolerance for activity to enable patient to perform ADL's. OT Education/Plan Problem List/Assessment Assessment: Decreased Activ Tolerance, Decreased UE Strength, Dependent Transfers, Impaired Bed Mobility, Impaired Funct Balance, Impaired I ADL's, Impaired Self-Care Skills, Restricted Funct UE ROM Discharge Recommendations Plan/Recommendations: Continue POC Therapy Discharge Recommendati: Home & Family, Post Acute OT Treatment Plan/Plan of Care Treatment,Training & Education: Yes Patient would benefit from OT for education, treatment and training to promote independence in ADL's, mobility, safety and/or upper extremity function for ADL's. Plan of Care: ADL Retraining, Functional Mobility, Group Exercise/Act as Ind, UE Funct Exercise/Act Treatment Duration: Dec 20, 2020 Frequency: Modified Program (IRF) Estimated Hrs Per Day: 1 hour per day Rehab Potential: Fair Time/GCodes Start Time: 09:45 (1430) Stop Time: 10:45 (1515) Total Time Billed (hr/min): 105 (60+45) Billed Treatment Time OT/ PT co-treat: [id number] (60). OT addresses UE movement, ADLs, problem solving, sequencing, while PT addresses LE movement, fx transfers, LE strength, fx activity tolerance. 1, ADL 3 (45) OT individual tx: 1, ADL 2, FA (45) KIAH LIMA OTR Nov 27, 2020 11:30
--- NOTE | 2020-11-27 12:00 | Physical Therapy Daily Note ---
PT Daily Note-Current Subjective OT/ PT co-treat: [id number] (01). OT addresses UE movement, ADLs, problem solving, sequencing, while PT addresses LE movement, fx transfers, LE strength, fx activity tolerance. Pt seen in bed, denies pain, no SOB. Pt agrees to OT/ PT co-treat, desiring sponge bath rather than shower. Pain Location: No Pain Reported Mental Status Patient Orientation: Person, Place, Situation Attachments: Oxygen (4L when working with Therapy staff) Transfers SCALE: Activities may be completed with or without assistive devices. 9-Xgxzytprhb-yexnxoi completes the activity by him/herself with no assistance from a helper. 5-Set-up or Clean-up Assistance-helper sets up or cleans up; patient completes activity. [place] assists only prior to or following the activity. 4-Supervision or Touching Assistance-helper provides verbal cues and/or touching/steadying and/or contact guard assistance as patient completes activity. Assistance may be provided throughout the activity or intermittently. 3-Partial/Moderate Assistance-helper does LESS THAN HALF the effort. [place] lifts, holds or supports trunk or limbs, but provides less than half the effort. 2-Substantial/Maximal Assistance-helper does MORE THAN HALF the effort. [place] lifts or holds trunk or limbs and provides more than half the effort. 0-Rcuhzrnml-egckrr does ALL the effort. Patient does none of the effort to complete the activity. Or, the assistance of 2 or more helpers is required for the patient to complete the activity. If activity was not attempted, code reason: 7-Patient Refused. 9-Not Applicable-not attempted and the patient did not perform the activity before the current illness, exacerbation or injury. 10-Not Attempted due to Environmental Limitations-(lack of equipment, weather restraints, etc.). 88-Not Attempted due to Medical Conditions or Safety Concerns. Lying to Sitting/Side of Bed(Q: 4 Sit to Stand (QC): 2 Chair/Wrq-gi-Pfxsu Xfer(QC): 2 Weight Bearing Full Weight Bearing Full Weight Bearing Treatments Pt in bed. Pt supine with BP reading 110/74, pt sits EOB and BP reads 101/64. Denies dizziness. Pt agrees to sponge bath, completes EOB with fair balance, requires one hand on bed for support (pt's feed unable to touch floor due to heightened bed). Pt completes UB washing/ tati area (minimally), and thighs; requires assist with other areas. Pt completes all tasks with increased time. Ax1 to sit to stand with cues for hand placement while OT addresses toilet hygiene/ bottom care and cream and donning LB dressing. Pt sit to stand 3x through session, with SPT to R side to recliner chair with Ax2 (OT to guide hips). 02 monitored with pt at 92% and able to recover to 97% within 30 sec and cues for breath. Pt requires assist to adjust/ position self. Pt requests shaving later this date, nursing is notified and agrees to shaving task. Pt is given HEP and resistance band. Educated on completing 3 reps of resistance to 3 reps of AROM. Pt monitors breath throughout, taking breaks as needed, completes 5/[address] Pt in recliner with all needs met, call light in reach. Assessment Current Status: Fair Progress Pt still requires O2 to be increased before beginning tx. Pt is still a little nervous with TF. Pt has knee buckling with standing. PT Short Term Goals Short Term Goals Time Frame: Nov 27, 2020 Roll Left & Right: 3 Sit to lyin Lying to sitting on side of be: 3 Sit to stand: 3 Chair/ttz-ag-wkquu transfer: 3 Walk 10 feet: 3 PT Mcc Goals Embryology Professor Goals PT Embryology Professor Goals Time Frame: Dec 11, 2020 Roll Left & Right (QC): 4 Sit to Lying (QC): 4 Lying-Sitting on Side/Bed(QC): 4 Sit to Stand (QC): 4 Chair/Wrz-uw-Neuhh Xfer(QC): 4 Toilet Transfer (QC): 4 Car Transfer (QC): 3 Does the Patient Walk: Yes Walk 10 feet (QC): 3 Walk 50ft with 2 Turns (QC): 3 Walk 150 ft (QC): 88 Walking 10ft on Uneven Surface: 3 1 Step (curb) (QC): 3 4 Steps (QC): 88 12 Steps (QC): 88 Picking up an Object (QC): 88 Wheel 50 feet with 2 turns (QC: 6 Wheel 150 feet: 6 PT Plan Problem List Problem List: Activity Tolerance, Functional Strength, Safety, Balance, Gait, Transfer Treatment/Plan Treatment Plan: Continue Plan of Care Treatment Plan: Bed Mobility, Education, Functional Activity Leti, Functional Strength, Group Therapy, Gait, Safety, Therapeutic Exercise, Transfers Treatment Duration: Dec 11, 2020 Frequency: Modified Program (IRF) Estimated Hrs Per Day: 1 hour per day Patient and/or Family Agrees t: Yes Safety Risks/Education Patient Education: Transfer Techniques, Correct Positioning, Safety Issues Teaching Recipient: Patient Teaching Methods: Discussion Response to Teaching: Verbalize Understanding Time/GCodes Time In: 945 Time Out: 1045 Total Billed Treatment Time: 60 Total Billed Treatment 1, FA x4 (60m) Co-treat w/OT for 60m OLINDAKARYN TIPTON ANALYTICAL ENGINEER Nov 27, 2020 12:00
--- NOTE | 2020-11-27 13:41 | Physical Therapy Daily Note ---
PT Daily Note-Current Subjective Pt sitting in recliner upon arrival. Pt agrees to PT and asked to be "cleaned up and go back to bed". Pain Location: No Pain Reported Mental Status Patient Orientation: Person, Place, Situation Attachments: Oxygen (4L during tx) Transfers SCALE: Activities may be completed with or without assistive devices. 5-[place]-cxknhyc completes the activity by him/herself with no assistance from a helper. 5-Set-up or Clean-up Assistance-helper sets up or cleans up; patient completes activity. [place] assists only prior to or following the activity. 4-Supervision or Touching Assistance-helper provides verbal cues and/or touching/steadying and/or contact guard assistance as patient completes activity. Assistance may be provided throughout the activity or intermittently. 3-Partial/Moderate Assistance-helper does LESS THAN HALF the effort. [place] lifts, holds or supports trunk or limbs, but provides less than half the effort. 2-Substantial/Maximal Assistance-helper does MORE THAN HALF the effort. [place] lifts or holds trunk or limbs and provides more than half the effort. 5-Csunvbguw-bnhrrl does ALL the effort. Patient does none of the effort to complete the activity. Or, the assistance of 2 or more helpers is required for the patient to complete the activity. If activity was not attempted, code reason: 7-Patient Refused. 9-Not Applicable-not attempted and the patient did not perform the activity before the current illness, exacerbation or injury. 10-Not Attempted due to Environmental Limitations-(lack of equipment, weather restraints, etc.). 88-Not Attempted due to Medical Conditions or Safety Concerns. Sit to Lying (QC): 2 Sit to Stand (QC): 2 Weight Bearing Full Weight Bearing Full Weight Bearing Treatments Completed sit to stand TF while Fringe Knotter assisted with pericare. TF to EOB then Supine with assistance. Pt repositioned and resting Supine in bed with all needs met, call light in hand. Assessment Current Status: Fair Progress Fatigue and weakness limit assistance. PT Short Term Goals Short Term Goals Time Frame: Nov 27, 2020 Roll Left & Right: 3 Sit to lyin Lying to sitting on side of be: 3 Sit to stand: 3 Chair/isw-oj-hglnk transfer: 3 Walk 10 feet: 3 PT Group Home Goals Site Supervisor Goals PT Group Home Goals Time Frame: Dec 11, 2020 Roll Left & Right (QC): 4 Sit to Lying (QC): 4 Lying-Sitting on Side/Bed(QC): 4 Sit to Stand (QC): 4 Chair/Ztw-ir-Pzqty Xfer(QC): 4 Toilet Transfer (QC): 4 Car Transfer (QC): 3 Does the Patient Walk: Yes Walk 10 feet (QC): 3 Walk 50ft with 2 Turns (QC): 3 Walk 150 ft (QC): 88 Walking 10ft on Uneven Surface: 3 1 Step (curb) (QC): 3 4 Steps (QC): 88 12 Steps (QC): 88 Picking up an Object (QC): 88 Wheel 50 feet with 2 turns (QC: 6 Wheel 150 feet: 6 PT Plan Problem List Problem List: Activity Tolerance, Functional Strength, Transfer Treatment/Plan Treatment Plan: Continue Plan of Care Treatment Plan: Bed Mobility, Education, Functional Activity Leti, Functional Strength, Group Therapy, Gait, Safety, Therapeutic Exercise, Transfers Treatment Duration: Dec 11, 2020 Frequency: Modified Program (IRF) Estimated Hrs Per Day: 1 hour per day Patient and/or Family Agrees t: Yes Safety Risks/Education Patient Education: Transfer Techniques, Correct Positioning, Safety Issues Teaching Recipient: Patient Teaching Methods: Discussion Response to Teaching: Verbalize Understanding Time/GCodes Time In: 1300 Time Out: 1330 Total Billed Treatment Time: 30 Total Billed Treatment 1, FA x2 (30m) KARYN BAKER PTA Nov 27, 2020 13:41
--- NOTE | 2020-11-27 14:05 | NUR ---
Care Team Conference Discussed care team conference summary with patient and team's recommendation for recheck on 12/04/2020. Patient is in agreement with this plan. Patient confirms he has a walker, shower bench and canes at home. Discussed with patient that additional equipment recommendations would be discussed with therapy team and patient closer to an estimated discharge date. Patient has no further questions and appears motivated to continue to participate with therapies to increase strength and independence.
[2020-11-27] MEDS: NYSTATIN CREAM (MYCOSTATIN) 30 GM TUBE TP SCH ×2 (14:29→21:32)
[2020-11-27] MEDS: SALINE NASAL SPRAY (OCEAN) 45 ML BTL PRN (15:28)
[2020-11-27] MEDS: SOD CHL GEL 0.5 OZ (AYR SALINE NASAL GEL) TUBE TOP PRN (15:28)
[2020-11-27 16:06] VITALS: BP 102/64
[2020-11-27] MEDS: MONTELUKAST 10 MG (SINGULAIR) TAB PO SCH (21:31)
[2020-11-27] MEDS: MELATONIN 10 MG TABLET PO SCH (21:31)
[2020-11-27] MEDS: MICONAZOLE 2% POWDER (DESENEX AF) 90 GM TOP SCH (21:32)
[2020-11-27] MEDS: MIRTAZAPINE 15 MG (REMERON) TAB PO SCH (21:32)
[2020-11-27] MEDS: guaiFENesin/CODEINE (ROBITUSSIN AC) 10ML UDC PO PRN (23:43)
[2020-11-28 06:00] VITALS: BP 114/67
[2020-11-28] MEDS: CYANOCOBALAMIN 1,000 MCG (VITAMIN B-12) TABLET NG SCH (07:55)
[2020-11-28] MEDS: APIXABAN 5 MG (ELIQUIS) TABLET PO SCH ×2 (07:55→20:48)
[2020-11-28] MEDS: TAMSULOSIN 0.4 MG (FLOMAX) CAP PO SCH ×2 (07:55→20:48)
[2020-11-28] MEDS: LACTOBACILLUS ACIDOPHILUS (PROBIOTIC) CAPSULE PO SCH ×2 (07:55→20:47)
[2020-11-28] MEDS: FOLIC ACID 1 MG TAB PO SCH (07:55)
[2020-11-28] MEDS: IRON SUCROSE 200 MG/10 ML (VENOFER) VIAL IV SCH (07:55)
[2020-11-28] MEDS: predniSONE 20 MG TAB PO SCH (07:55)
[2020-11-28] MEDS: ROFLUMILAST 500 MCG TAB (DALIRESP) NG SCH (07:56)
[2020-11-28] MEDS: FINASTERIDE (PROSCAR) 5 MG TAB PO SCH (07:57)
[2020-11-28] MEDS: meTOprolol TARTRATE 25 MG (LOPRESSOR) TABLET PO SCH ×2 (07:57→20:48)
[2020-11-28] MEDS: LORATADINE (CLARITIN) 10 MG TAB PO SCH (07:57)
[2020-11-28] MEDS: PANTOPRAZOLE 40 MG (PROTONIX) TAB PO SCH (07:57)
[2020-11-28] MEDS: NYSTATIN CREAM (MYCOSTATIN) 30 GM TUBE TP SCH ×3 (07:58→20:49)
[2020-11-28] MEDS: MICONAZOLE 2% POWDER (DESENEX AF) 90 GM TOP SCH ×2 (07:58→20:49)
[2020-11-28] MEDS: RT-ALBUTEROL/IPRATROPIUM 3 ML (DUONEB) VIAL IH SCH ×2 (08:12→20:01)
[2020-11-28] MEDS: DOCUSATE SODIUM 100 MG (COLACE) CAP PO SCH ×2 (08:21→19:31)
[2020-11-28] MEDS: ADVAIR HFA 115/21 MCG INHALER 8 GM IH SCH ×2 (08:21→20:05)
[2020-11-28] MEDS: polyethylene glycoL POWDER 17 GM (MIRALAX) PACK PO SCH ×2 (08:21→19:32)
[2020-11-28] MEDS: SENNA W/DOCUSATE (SENOKOT S) TABLET PO SCH ×2 (08:23→19:33)
--- NOTE | 2020-11-28 12:06 | Occupational Ther Daily Note ---
OT Current Status-Daily Note Subjective Pt agreeable to therapy session. Did not verbalize any pain. Mental Status/Objective Attachments: Mejia Catheter, Oxygen ADL-Treatment Therapy Code Descriptions/Definitions Functional [place] Measure: 0=Not Assessed/NA 4=Minimal Assistance 1=Total Assistance 5=Supervision or Setup 2=Maximal Assistance 6=Modified [place] 3=Moderate Assistance 7=Complete IndependenceSCALE: Activities may be completed with or without assistive devices. 7-Kirblytjwf-mbtffwr completes the activity by him/herself with no assistance from a helper. 5-Set-up or Clean-up Assistance-helper sets up or cleans up; patient completes activity. [place] assists only prior to or following the activity. 4-Supervision or Touching Assistance-helper provides verbal cues and/or touching/steadying and/or contact guard assistance as patient completes activity. Assistance may be provided throughout the activity or intermittently. 3-Partial/Moderate Assistance-helper does LESS THAN HALF the effort. [place] lifts, holds or supports trunk or limbs, but provides less than half the effort. 2-Substantial/Maximal Assistance-helper does MORE THAN HALF the effort. [place] lifts or holds trunk or limbs and provides more than half the effort. 6-Oaqxvkmri-minivd does ALL the effort. Patient does none of the effort to complete the activity. Or, the assistance of 2 or more helpers is required for the patient to complete the activity. If activity was not attempted, code reason: 7-Patient Refused. 9-Not Applicable-not attempted and the patient did not perform the activity before the current illness, exacerbation or injury. 10-Not Attempted due to Environmental Limitations-(lack of equipment, weather restraints, etc.). 88-Not Attempted due to Medical Conditions or Safety Concerns. Toileting Hygiene (QC): 1 (Assist to manage clothing and hygiene. x2 assist in stand.) Other Treatment OT/PT cotreat due to skill of 2 clinicians required that a rehabilitation construction specialist could not perform in order to coordinate UE/LEs and due to pt's limitations in strength, endurance, balance, and mobility. OT focused on ADLs, UE placement, cues for sequencing and safety while PT focused on LE placement, gross overall movement, and transfers. Pt transferred supine to sit EOB, no dizziness with transfer. Pt indicates he feels like he needs to have a BM, SPT complete to BSC. Pt completed toileting, x2 assist in stand for pant hike and hygiene. Pt sat back on BSC to catch his breath, then stood with PT while OT replaced BSC with w/c. Pt self- propelled w/c to therapy gym. In order to increase BUE strength and endurance, pt completed x20 reps finger flexion/extension BUE, and x15 reps AROM shoulder flexion BUE (shoulder flexion to approx 95 degrees). Pt took rest breaks as needed with cues for diaphragmatic breathing. Pt propelled w/c back to his room, requests to stay up in w/c for lunch. Post tx, pt seated in w/c, call light in reach and all needs met. Frequent rest breaks required throughout tx, pt encouraged to complete pursed lip breathing. Education OT Patient Education: Correct positioning, Modified ADL techniques, Progress toward Goal/Update tx plan, Purpose of tx/functional activities Teaching Recipient: Patient Teaching Methods: Discussion Response to Teaching: Verbalize Understanding OT Short Term Goals Short Term Goals Time Frame: Dec 11, 2020 Shower/bathe self: 4 Upper body dressin Lower body dressin OT Jail Goals Jail Goals Time Frame: Dec 20, 2020 Eating (QC): 6 Oral Hygiene (QC): 6 Toileting Hygiene (QC): 6 Shower/Bathe Self (QC): 6 Upper Body Dressing (QC): 6 Lower Body Dressing (QC): 6 On/Off Footwear (QC): 6 Additional Goals: 1-Demonstrate ADL Tasks, 2-Verbalize Understanding, 3- ImproveStrength/Leti 1=Demonstrate adherence to instructed precautions during ADL tasks. 2=Patient will verbalize/demonstrate understanding of assistive devices/modifications for ADL. 3=Patient will improve strength/tolerance for activity to enable patient to perform ADL's. OT Education/Plan Problem List/Assessment Assessment: Decreased Activ Tolerance, Decreased UE Strength, Impaired Funct Balance, Impaired I ADL's, Impaired Self-Care Skills Discharge Recommendations Plan/Recommendations: Continue POC Treatment Plan/Plan of Care Patient would benefit from OT for education, treatment and training to promote independence in ADL's, mobility, safety and/or upper extremity function for ADL's. Plan of Care: ADL Retraining, Functional Mobility, Group Exercise/Act as Ind, UE Funct Exercise/Act Treatment Duration: Dec 20, 2020 Frequency: Modified Program (IRF) Estimated Hrs Per Day: 1 hour per day Rehab Potential: Fair Time/GCodes Start Time: 11:00 Stop Time: 12:00 Total Time Billed (hr/min): 60 Billed Treatment Time cotreat x60 1, ADL 3 (40'), EX (20') BRENDA BLANCO OT Nov 28, 2020 12:06
--- NOTE | 2020-11-28 12:19 | Physical Therapy Daily Note ---
PT Daily Note-Current Subjective Pt laying Supine in bed upon arrival. Pt agrees to PT/OT co-treat. Pain Location: No Pain Reported Mental Status Patient Orientation: Person, Place, Situation Attachments: Oxygen (4L during tx) Transfers SCALE: Activities may be completed with or without assistive devices. 0-Otzmmpoumd-gmsrshv completes the activity by him/herself with no assistance from a helper. 5-Set-up or Clean-up Assistance-helper sets up or cleans up; patient completes activity. [place] assists only prior to or following the activity. 4-Supervision or Touching Assistance-helper provides verbal cues and/or touching/steadying and/or contact guard assistance as patient completes activity. Assistance may be provided throughout the activity or intermittently. 3-Partial/Moderate Assistance-helper does LESS THAN HALF the effort. [place] lifts, holds or supports trunk or limbs, but provides less than half the effort. 2-Substantial/Maximal Assistance-helper does MORE THAN HALF the effort. [place] lifts or holds trunk or limbs and provides more than half the effort. 4-Fomjxjmhc-zhlwfl does ALL the effort. Patient does none of the effort to complete the activity. Or, the assistance of 2 or more helpers is required for the patient to complete the activity. If activity was not attempted, code reason: 7-Patient Refused. 9-Not Applicable-not attempted and the patient did not perform the activity before the current illness, exacerbation or injury. 10-Not Attempted due to Environmental Limitations-(lack of equipment, weather restraints, etc.). 88-Not Attempted due to Medical Conditions or Safety Concerns. Sit to Stand (QC): 2 Toilet Transfer (QC): 2 Weight Bearing Full Weight Bearing Full Weight Bearing Wheelchair Training Does the Pt Use a Wheelchair?: Yes Wheel 50 ft with 2 turns (QC): 4 Wheel 150 ft (QC): 4 Exercises Seated Therapy Exercises: Ankle pumps, Long arc quads, Hip flexion, Kicking activity Seated Reps: 15 Treatments OT/PT cotreat due to skill of 2 clinicians required that a vocational rehabilitation consultant could not perform in order to coordinate UE/LEs and due to pt's limitations in strength, endurance, balance, and mobility. OT focused on ADLs, UE placement, cues for sequencing and safety while PT focused on LE placement, gross overall movement, and transfers. Pt transferred supine to sit EOB, no dizziness with transfer. Pt indicates he feels like he needs to have a BM, SPT complete to BSC. Pt completed toileting, x2 assist in stand for pant hike and hygiene. Pt sat back on BSC to catch his breath, then stood with PT while OT replaced BSC with w/c. Pt self- propelled w/c to therapy gym. In order to increase BUE strength and endurance, pt completed x20 reps finger flexion/extension BUE, and x15 reps AROM shoulder flexion BUE (shoulder flexion to approx 95 degrees). Pt took rest breaks as needed with cues for diaphragmatic breathing. Pt propelled w/c back to his room, requests to stay up in w/c for lunch. Post tx, pt seated in w/c, call light in reach and all needs met. Assessment Current Status: Fair Progress Pt still needs frequent RB due to fatigue, encouraged Pursed lip breathing to recover. PT Short Term Goals Short Term Goals Time Frame: Nov 27, 2020 Roll Left & Right: 3 Sit to lyin Lying to sitting on side of be: 3 Sit to stand: 3 Chair/akq-cf-ndfec transfer: 3 Walk 10 feet: 3 PT Tank Hoop Bender Goals Tank Hoop Bender Goals PT Tank Hoop Bender Goals Time Frame: Dec 11, 2020 Roll Left & Right (QC): 4 Sit to Lying (QC): 4 Lying-Sitting on Side/Bed(QC): 4 Sit to Stand (QC): 4 Chair/Ozq-me-Ijjkp Xfer(QC): 4 Toilet Transfer (QC): 4 Car Transfer (QC): 3 Does the Patient Walk: Yes Walk 10 feet (QC): 3 Walk 50ft with 2 Turns (QC): 3 Walk 150 ft (QC): 88 Walking 10ft on Uneven Surface: 3 1 Step (curb) (QC): 3 4 Steps (QC): 88 12 Steps (QC): 88 Picking up an Object (QC): 88 Wheel 50 feet with 2 turns (QC: 6 Wheel 150 feet: 6 PT Plan Problem List Problem List: Activity Tolerance, Functional Strength, Safety, Balance, Transfer Treatment/Plan Treatment Plan: Continue Plan of Care Treatment Plan: Bed Mobility, Education, Functional Activity Leti, Functional Strength, Group Therapy, Gait, Safety, Therapeutic Exercise, Transfers Treatment Duration: Dec 11, 2020 Frequency: Modified Program (IRF) Estimated Hrs Per Day: 1 hour per day Patient and/or Family Agrees t: Yes Safety Risks/Education Patient Education: Transfer Techniques, Correct Positioning, W/C Management, Safety Issues Teaching Recipient: Patient Teaching Methods: Discussion Response to Teaching: Verbalize Understanding Time/GCodes Time In: 1100 Time Out: 1200 Total Billed Treatment Time: 60 Total Billed Treatment 1, FA x2 (30m), [facility] (15m) & EX (15m) Co-treat w/OT for 60m KARYN BAKER SPECIAL EVENTS COORDINATOR Nov 28, 2020 12:19
--- NOTE | 2020-11-28 13:17 | PM&R Progress Note ---
Subjective HPI/CC On Admission Date Seen by Provider: Nov 28, 2020 Time Seen by Provider: 13:00 Subjective/Events-last exam 11/28/20: Slept a bit better Midline for Venofer will be placed Much improved status BSC today Mejia cath replaced 11/27/20: Pt remains on 1 liter per minute of oxygen Appears to be much improved today Cystoscope done today showing large prostate Proscar along with Flomax was initiated Cath was done and obtained 1000cc of urine Nystatin cream and powder will be initiated Overall much improved 11/26/20: Pt did not sleep last night due to urinary frequency Had to do straight in and out cath x4 last night Dr. Marsh will be updated Blood in the urine 1 liter of O2 now but will need a higher level when he is working out CT chest and ABG reviewed 11/25/20: ABG is pending from not being drawn yet CT of the chest will be performed, Dr. Schrader has been updated Bowels moved yesterday 11/24/20: Venofer IV started and I explained why I started that for him Will check CT scan of chest tomorrow and consult Dr Schrader Labs and ABG ordered as well Still very tachypneic with conversation and at rest Monitoring BP 2L/min 11/23/20: No orthostasis today Worked with PT OT BM++ O2 maintained 11/22/20: Hgb 8.6 today Feels better since IVF 500cc yesterday and changed cardiac meds by Dr Cisneros [place] was born and he is thrilled about that Mejia cath still in place Fecal incontinence noted RT left him without O2 since he was good BRIEFLY on room air after Nebs for 1 hour and spot checked and he was at 85% and he was very short of breath just resting 11/21/20: Had episode of hypotension 76/40 with symptoms when got to edge of bed so laid back down, Cardiology notified and given 500cc of IVF Patient is on a waiver due to COVID and hypoxia for slow therapy and only 120 minutes per day Cardizem CD 120mg now after changed by Dr Cisneros ECHO done Stopped Lasix Mejia cath remains in place Objective Exam Vital Signs Vital Signs Date Time Temp Pulse Resp B/P (MAP) Pulse Ox O2 Delivery O2 Flow Rate FiO2 11/29/20 05:36 36.4 84 18 116/69 (85) 97 Nasal Cannula 1.00 Capillary Refill : Less Than 3 Seconds General Appearance: No Apparent Distress, WD/WN, Chronically ill, Thin HEENT: PERRL/EOMI, Normal ENT Inspection, Pharynx Normal Neck: Full Range of Motion, Normal Inspection, Non Tender, Supple, Carotid Bruit Respiratory: Chest Non Tender, Lungs Clear, No Respiratory Distress, Accessory Muscle Use, Decreased Breath Sounds Cardiovascular: Regular Rate, Rhythm, No Edema, No Gallop, No JVD, No Murmur, Normal Peripheral Pulses Gastrointestinal: Normal Bowel Sounds, No Organomegaly, No Pulsatile Mass, Non Tender, Soft Back: Normal Inspection, No CVA Tenderness, No Vertebral Tenderness Extremity: Normal Capillary Refill, Normal Inspection, Normal Range of Motion, Non Tender, No Calf Tenderness, No Pedal Edema Neurologic/Psychiatric: Alert, Oriented x3, No Motor/Sensory Deficits, Normal Mood/Affect, Motor Weakness (generalized 2/5 lower extremities, 3/5 upper extremities) Skin: Normal Color, Warm/Dry Lymphatic: No Adenopathy Results/Procedures Lab Patient resulted labs reviewed. [facility]IM Transfers Therapy Code Descriptions/Definitions Functional [place] Measure: 0=Not Assessed/NA 4=Minimal Assistance 1=Total Assistance 5=Supervision or Setup 2=Maximal Assistance 6=Modified [place] 3=Moderate Assistance 7=Complete IndependenceSCALE: Activities may be completed with or without assistive devices. 4-Ybphcgwris-ozhqonw completes the activity by him/herself with no assistance from a helper. 5-Set-up or Clean-up Assistance-helper sets up or cleans up; patient completes activity. [place] assists only prior to or following the activity. 4-Supervision or Touching Assistance-helper provides verbal cues and/or touching/steadying and/or contact guard assistance as patient completes activity. Assistance may be provided throughout the activity or intermittently. 3-Partial/Moderate Assistance-helper does LESS THAN HALF the effort. [place] lifts, holds or supports trunk or limbs, but provides less than half the effort. 2-Substantial/Maximal Assistance-helper does MORE THAN HALF the effort. [place] lifts or holds trunk or limbs and provides more than half the effort. 1-Mysqivgbc-bfutvi does ALL the effort. Patient does none of the effort to complete the activity. Or, the assistance of 2 or more helpers is required for the patient to complete the activity. If activity was not attempted, code reason: 7-Patient Refused. 9-Not Applicable-not attempted and the patient did not perform the activity before the current illness, exacerbation or injury. 10-Not Attempted due to Environmental Limitations-(lack of equipment, weather restraints, etc.). 88-Not Attempted due to Medical Conditions or Safety Concerns. Roll Left to Right (QC): 4 Sit to Lying (QC): 2 Sit to Stand (QC): 2 Chair/Huw-mq-Qiqeo Xfer(QC): 2 Car Transfer (QC): 2 Gait Training Does the Patient Walk?: No and Walking Goal IS indicated Walk 10 feet (QC): 88 Walk 50 ft with 2 Turns(QC): 88 Walk 150 ft (QC): 88 Walking 10ft/uneven surface-QC: 88 Wheelchair Training Does the Pt Use a Wheelchair?: Yes Wheel 50 ft with 2 turns (QC): 4 Wheel 150 ft (QC): 88 Type of Wheelchair: Manual Stair Training 1 Step (curb) (QC): 88 4 Steps (QC): 88 12 Steps (QC): 88 Balance Picking up an Object (QC): 88 ADL-Treatment Eating (QC): 6 Oral Hygiene (QC): 5 (s/u EOB) Bathing Location: L Arm, R Arm, L Upper Leg, R Upper Leg, Chest, Abdomen Shower/Bathe Self (QC): 1 (TD due to the need of Ax2 during bottom/ tati care. Pt able to complete UB/ slight LB (thighs) requires assist with calves-feet, bottom, tati area. Noted bloodied breif in tati area- nursing notified. Skin barrier ointment applied to tati/ bottom) Upper Body Dressing (QC): 5 (s/u) Lower Body Dressing (QC): 1 (TD due to need of Ax2 in stance.) On/Off Footwear (QC): 1 (TD due to decreased balance/ breath support.) Toileting Hygiene (QC): 1 (Assist to manage clothing and hygiene. x2 assist in stand.) Toilet Transfer (QC): 7 (Denies, stating he is having BM in brief; pt denies going to toilet/ commode as does not believe he is able to regulate BM. ) Assessment/Plan Assessment and Plan Assess & Plan/Chief Complaint Assessment: Myopathy COVID-19 PNA Urinary retention Mejia cath in place Bowel incontinence Hypoxia O2 dependent BPH Frail Advanced age Plan: IRF protocol but 120 minutes per day to accommodate hypoxia at activity [place] meds Melatonin at night 11/21/20: s/o IVF Monitor hypotension and hypoxia Appreciate Dr Cisneros ECHO done Add Remeron for sleep with Melatonin 11/22/20: No possibility of weaning O2 for now with this patient so needs on 21/06 and will update RT Increase activity 11/23/20: Maintain O2 Nebs Monitor BP 11/24/20: Venofer Labs and ABG and CT chest in am Dr Schrader consultation Maintain O2 Very fragile lungs 11/25/20: CT chest ABG Dr Schrader consultation 11/26/20: Dr Schrader appreciated Dr Marsh appreciated 11/27/20: Dr Marsh appreciated Monitor O2 11/28/20: Mejia cath in place Midline Venofer (1) Myopathy (2) COVID-19 (3) Hypoxia (4) Urinary retention (5) Mejia catheter in place (6) BPH (benign prostatic hyperplasia) (7) Bowel incontinence (8) Supplemental oxygen dependent (9) Advanced age (10) Frailty BARB COLLINS DO Nov 28, 2020 13:17
--- NOTE | 2020-11-28 13:33 | Physical Therapy Daily Note ---
PT Daily Note-Current Subjective Pt sitting in [facility] upon arrival. Pt declines need for BSC or BR. Pt asks to remain sitting in [facility] a little longer. Pain Location: No Pain Reported Mental Status Patient Orientation: Person, Place, Situation Attachments: Oxygen (4L during tx.), Mejia Catheter Transfers SCALE: Activities may be completed with or without assistive devices. 3-Rytrgfypiu-ztlvwco completes the activity by him/herself with no assistance from a helper. 5-Set-up or Clean-up Assistance-helper sets up or cleans up; patient completes activity. [place] assists only prior to or following the activity. 4-Supervision or Touching Assistance-helper provides verbal cues and/or touching/steadying and/or contact guard assistance as patient completes activity. Assistance may be provided throughout the activity or intermittently. 3-Partial/Moderate Assistance-helper does LESS THAN HALF the effort. [place] lifts, holds or supports trunk or limbs, but provides less than half the effort. 2-Substantial/Maximal Assistance-helper does MORE THAN HALF the effort. [place] lifts or holds trunk or limbs and provides more than half the effort. 6-Zslrgdqwt-kkwccp does ALL the effort. Patient does none of the effort to complete the activity. Or, the assistance of 2 or more helpers is required for the patient to complete the activity. If activity was not attempted, code reason: 7-Patient Refused. 9-Not Applicable-not attempted and the patient did not perform the activity be fore the current illness, exacerbation or injury. 10-Not Attempted due to Environmental Limitations-(lack of equipment, weather restraints, etc.). 88-Not Attempted due to Medical Conditions or Safety Concerns. Weight Bearing Full Weight Bearing Full Weight Bearing Treatments Pt declines need for BSC or BR and asked to remain sitting up in [facility] a little longer. Pt is assisted in repositioning as Dr Saxena arrives to visit with pt. All needs met, call light in hand. Assessment Current Status: Fair Progress Pt is cristal. tx well as asking to sit up longer. PT Short Term Goals Short Term Goals Time Frame: Nov 27, 2020 Roll Left & Right: 3 Sit to lyin Lying to sitting on side of be: 3 Sit to stand: 3 Chair/nda-kk-dovjb transfer: 3 Walk 10 feet: 3 PT Half-Way Goals School Examiner Goals PT Half-Way Goals Time Frame: Dec 11, 2020 Roll Left & Right (QC): 4 Sit to Lying (QC): 4 Lying-Sitting on Side/Bed(QC): 4 Sit to Stand (QC): 4 Chair/Hfr-zt-Mbxlm Xfer(QC): 4 Toilet Transfer (QC): 4 Car Transfer (QC): 3 Does the Patient Walk: Yes Walk 10 feet (QC): 3 Walk 50ft with 2 Turns (QC): 3 Walk 150 ft (QC): 88 Walking 10ft on Uneven Surface: 3 1 Step (curb) (QC): 3 4 Steps (QC): 88 12 Steps (QC): 88 Picking up an Object (QC): 88 Wheel 50 feet with 2 turns (QC: 6 Wheel 150 feet: 6 PT Plan Problem List Problem List: Activity Tolerance, Functional Strength Treatment/Plan Treatment Plan: Continue Plan of Care Treatment Plan: Bed Mobility, Education, Functional Activity Leti, Functional Strength, Group Therapy, Gait, Safety, Therapeutic Exercise, Transfers Treatment Duration: Dec 11, 2020 Frequency: Modified Program (IRF) Estimated Hrs Per Day: 1 hour per day Patient and/or Family Agrees t: Yes Safety Risks/Education Patient Education: Correct Positioning, Safety Issues Teaching Recipient: Patient Teaching Methods: Discussion Response to Teaching: Verbalize Understanding Time/GCodes Time In: 1300 Time Out: 1315 Total Billed Treatment Time: 15 Total Billed Treatment 1, FA (15m) KARYN BAKER PTA Nov 28, 2020 13:33
[2020-11-28 18:00] VITALS: BP 108/65
--- NOTE | 2020-11-28 18:22 | Progress Note - Cardiology ---
Cardiology SOAP Progress Note Subjective: Feels better than before Less weak Less short of breath No cp or palp or syncope Objective: I&O/Vital Signs 11/28/20 09:00 O2 Delivery Nasal Cannula O2 Flow Rate 1.00 11/28/20 00:00 Intake Total 980 ml Output Total 850 ml Balance 130 ml Constitutional: AAO x 3, well-developed, well-nourished Respiratory: No accessory muscle use; other (good bilat air entry, somewhat diminished at the bases) Cardiovascular: irregularly irregular, S1 and S2, systolic murmur (2/6 SHERMAN at card base) Gastrointestional: No tender; soft; No guarding, No rebound; audible bowel sounds Extremities: No clubbing, No cyanosis, No significant edema Neurologic/Psychiatric: oriented x 3, other (moves all limbs) Skin: No rash on exposed areas, No ulcerations on exposed areas A/P: Assessment: PAF, currently NSR S/p ac resp failure due to COVID-19 in early 2019 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 Diuretics stopped on 11/21/20. Sildenafil reduced on 11/23/20 and stopped on 11/25/20 Plan: * Continue current regiment * Monitor labs from time to time LIONEL LUONG MD FACP [facility] Nov 28, 2020 18:22
[2020-11-28] MEDS ORDERED: ZINC OXIDE 16% OINT (BUTT PASTE) 57 GM TUBE TOP PRN (19:15)
[2020-11-28] MEDS: MIRTAZAPINE 15 MG (REMERON) TAB PO SCH (20:47)
[2020-11-28] MEDS: MELATONIN 10 MG TABLET PO SCH (20:47)
[2020-11-28] MEDS: MONTELUKAST 10 MG (SINGULAIR) TAB PO SCH (20:47)
[2020-11-29 05:36] VITALS: BP 116/69
[2020-11-29] MEDS: DOCUSATE SODIUM 100 MG (COLACE) CAP PO SCH ×2 (07:49→19:45)
[2020-11-29] MEDS: polyethylene glycoL POWDER 17 GM (MIRALAX) PACK PO SCH ×2 (07:49→19:45)
[2020-11-29] MEDS: SENNA W/DOCUSATE (SENOKOT S) TABLET PO SCH ×2 (07:50→19:45)
[2020-11-29] MEDS: predniSONE 20 MG TAB PO SCH (09:41)
[2020-11-29] MEDS: CYANOCOBALAMIN 1,000 MCG (VITAMIN B-12) TABLET NG SCH (09:41)
[2020-11-29] MEDS: meTOprolol TARTRATE 25 MG (LOPRESSOR) TABLET PO SCH ×2 (09:41→20:54)
[2020-11-29] MEDS: TAMSULOSIN 0.4 MG (FLOMAX) CAP PO SCH ×2 (09:41→20:54)
[2020-11-29] MEDS: APIXABAN 5 MG (ELIQUIS) TABLET PO SCH ×2 (09:41→20:54)
[2020-11-29] MEDS: PANTOPRAZOLE 40 MG (PROTONIX) TAB PO SCH (09:41)
[2020-11-29] MEDS: FINASTERIDE (PROSCAR) 5 MG TAB PO SCH (09:41)
[2020-11-29] MEDS: LACTOBACILLUS ACIDOPHILUS (PROBIOTIC) CAPSULE PO SCH ×2 (09:41→20:54)
[2020-11-29] MEDS: FOLIC ACID 1 MG TAB PO SCH (09:41)
[2020-11-29] MEDS: ROFLUMILAST 500 MCG TAB (DALIRESP) NG SCH (09:41)
[2020-11-29] MEDS: LORATADINE (CLARITIN) 10 MG TAB PO SCH (09:41)
[2020-11-29] MEDS: NYSTATIN CREAM (MYCOSTATIN) 30 GM TUBE TP SCH ×3 (09:42→20:58)
[2020-11-29] MEDS: MICONAZOLE 2% POWDER (DESENEX AF) 90 GM TOP SCH ×2 (09:42→20:58)
[2020-11-29] MEDS: RT-ALBUTEROL/IPRATROPIUM 3 ML (DUONEB) VIAL IH SCH ×2 (10:38→19:05)
[2020-11-29] MEDS: ADVAIR HFA 115/21 MCG INHALER 8 GM IH SCH ×2 (10:38→19:08)
--- NOTE | 2020-11-29 12:11 | Physical Therapy Daily Note ---
PT Daily Note-Current Subjective Pt laying Supine in bed upon arrival. Pt agrees to PT/OT co-treat for shower. Pt AxO, states just got off phone with thalia. Pt agrees to OT/ PT co-treat: PT/OT co-treat, skills of 2 clinicians required for coordination and skilled instruction of bathing, functional transfers and sit to stands. PT focusing on transfers, sit to stand, sitting balance and correct positioning. OT focusing on ADLs and bathing, B UE placement during transfers, problem solving and sit to stand. Pt denies pain. Pain Location: No Pain Reported Mental Status Patient Orientation: Person, Place, Situation Attachments: Oxygen (4L during tx) Transfers SCALE: Activities may be completed with or without assistive devices. 8-Phwnpqbyrc-ibkrdyr completes the activity by him/herself with no assistance from a helper. 5-Set-up or Clean-up Assistance-helper sets up or cleans up; patient completes activity. [place] assists only prior to or following the activity. 4-Supervision or Touching Assistance-helper provides verbal cues and/or touching/steadying and/or contact guard assistance as patient completes activity. Assistance may be provided throughout the activity or intermittently. 3-Partial/Moderate Assistance-helper does LESS THAN HALF the effort. [place] lifts, holds or supports trunk or limbs, but provides less than half the effort. 2-Substantial/Maximal Assistance-helper does MORE THAN HALF the effort. [place] lifts or holds trunk or limbs and provides more than half the effort. 4-Afamlxxna-xzivux does ALL the effort. Patient does none of the effort to complete the activity. Or, the assistance of 2 or more helpers is required for the patient to complete the activity. If activity was not attempted, code reason: 7-Patient Refused. 9-Not Applicable-not attempted and the patient did not perform the activity before the current illness, exacerbation or injury. 10-Not Attempted due to Environmental Limitations-(lack of equipment, weather restraints, etc.). 88-Not Attempted due to Medical Conditions or Safety Concerns. Lying to Sitting/Side of Bed(Q: 3 Sit to Stand (QC): 3 Chair/Yhz-zv-Cixpe Xfer(QC): 3 Weight Bearing Full Weight Bearing Full Weight Bearing Treatments Pt bed mob (supine to sit) with mod A. Pt sits EOB, no SOB noted. Pt SPT to w/c and is pushed to shower. Pt completes SPT with cues for BUE placement and transfer technique. Please see PT notes for specific assist. Pt completes shower on sc and dressing as outlined. Pt completes 3 small BMs while in shower, only aware of 1/3. Pt able to wipe bottom clean post shower. Post-shower, 02 86%, cues for breath and recovers within 30 sec. Pt SPT with mod A x2 from sc to w/c. Pt requests to stay in w/c end of session as food is coming soon. Pt's 02 87% end of session, continued cues for breath, recovers in 2 breaths. Pt positioned for comfort, all needs met, call light on lap, educated on pressing call light when desire to get from w/c. Assessment Current Status: Fair Progress Pt is improving with strength and activity tolerance. PT Short Term Goals Short Term Goals Time Frame: Nov 27, 2020 Roll Left & Right: 3 Sit to lyin Lying to sitting on side of be: 3 Sit to stand: 3 Chair/jtt-qh-eymbn transfer: 3 Walk 10 feet: 3 PT Fish Tender Goals Fish Tender Goals PT Fish Tender Goals Time Frame: Dec 11, 2020 Roll Left & Right (QC): 4 Sit to Lying (QC): 4 Lying-Sitting on Side/Bed(QC): 4 Sit to Stand (QC): 4 Chair/Ocf-qu-Olgnz Xfer(QC): 4 Toilet Transfer (QC): 4 Car Transfer (QC): 3 Does the Patient Walk: Yes Walk 10 feet (QC): 3 Walk 50ft with 2 Turns (QC): 3 Walk 150 ft (QC): 88 Walking 10ft on Uneven Surface: 3 1 Step (curb) (QC): 3 4 Steps (QC): 88 12 Steps (QC): 88 Picking up an Object (QC): 88 Wheel 50 feet with 2 turns (QC: 6 Wheel 150 feet: 6 PT Plan Problem List Problem List: Safety, Balance, Transfer Treatment/Plan Treatment Plan: Continue Plan of Care Treatment Plan: Bed Mobility, Education, Functional Activity Leti, Functional Strength, Group Therapy, Gait, Safety, Therapeutic Exercise, Transfers Treatment Duration: Dec 11, 2020 Frequency: Modified Program (IRF) Estimated Hrs Per Day: 1 hour per day Patient and/or Family Agrees t: Yes Safety Risks/Education Patient Education: Transfer Techniques, Correct Positioning, Safety Issues Teaching Recipient: Patient Teaching Methods: Discussion Response to Teaching: Verbalize Understanding Time/GCodes Time In: 1045 Time Out: 1145 Total Billed Treatment Time: 60 Total Billed Treatment 1, FA x4 (60m) Co-treat with OT for 60m KARYN BAKER PTA Nov 29, 2020 12:10
--- NOTE | 2020-11-29 12:24 | Occupational Ther Daily Note ---
OT Current Status-Daily Note Subjective Pt AxO, states just got off phone with thalia. Pt agrees to OT/ PT co- treat:PT/OT co-treat, skills of 2 clinicians required for coordination and skilled instruction of bathing, functional transfers and sit to stands. PT focusing on transfers, sit to stand, sitting balance and correct positioning. OT focusing on ADLs and bathing, B UE placement during transfers, problem solving and sit to stand. Pt denies pain. Mental Status/Objective Patient Orientation: Person, Place, Situation, Normal For Age Attachments: Mejia Catheter, Oxygen (2L, 4L during session) ADL-Treatment Therapy Code Descriptions/Definitions Functional [place] Measure: 0=Not Assessed/NA 4=Minimal Assistance 1=Total Assistance 5=Supervision or Setup 2=Maximal Assistance 6=Modified [place] 3=Moderate Assistance 7=Complete IndependenceSCALE: Activities may be completed with or without assistive devices. 1-Ecfbazsorm-wrqzlxp completes the activity by him/herself with no assistance from a helper. 5-Set-up or Clean-up Assistance-helper sets up or cleans up; patient completes activity. [place] assists only prior to or following the activity. 4-Supervision or Touching Assistance-helper provides verbal cues and/or touching/steadying and/or contact guard assistance as patient completes activity. Assistance may be provided throughout the activity or intermittently. 3-Partial/Moderate Assistance-helper does LESS THAN HALF the effort. [place] lifts, holds or supports trunk or limbs, but provides less than half the effort. 2-Substantial/Maximal Assistance-helper does MORE THAN HALF the effort. [place] lifts or holds trunk or limbs and provides more than half the effort. 0-Alwdimrbl-nsksov does ALL the effort. Patient does none of the effort to complete the activity. Or, the assistance of 2 or more helpers is required for the patient to complete the activity. If activity was not attempted, code reason: 7-Patient Refused. 9-Not Applicable-not attempted and the patient did not perform the activity before the current illness, exacerbation or injury. 10-Not Attempted due to Environmental Limitations-(lack of equipment, weather restraints, etc.). 88-Not Attempted due to Medical Conditions or Safety Concerns. Eating (QC): 6 Bathing Location: L Arm, R Arm, L Upper Leg, R Upper Leg, Chest, Abdomen, Buttocks, Perineal Area Shower/Bathe Self (QC): 4 (SBA-SUP while on sc. Completes all areas (excluding B feet)) Upper Body Dressing (QC): 5 (s/u gown.) Lower Body Dressing (QC): 1 (TD due to mod A x2 for sit to stand and manipulation) On/Off Footwear: 2 (max A don/ doffing.) Toileting Hygiene (QC): 4 (SBA/ cues for continuation. ) Toilet Transfer (QC): 1 (mod A x2) Other Treatment Pt bed mob (supine to sit) with mod A. Pt sits EOB, no SOB noted. Pt SPT to w/c and is pushed to shower. Pt completes SPT with cues for BUE placement and transfer technique. Please see PT notes for specific assist. Pt completes shower on sc and dressing as outlined. Pt completes 3 small BMs while in shower, only aware of 1/3. Pt able to wipe bottom clean post shower. Post-shower, 02 86%, cues for breath and recovers within 30 sec. Pt SPT with mod A x2 from sc to w/c. Pt requests to stay in w/c end of session as food is coming soon.Pt's 02 87% end of session, continued cues for breath, recovers in 2 breaths. Pt positioned for comfort, all needs met, call light on lap, educated on pressing call light when desire to get from w/c. Education OT Patient Education: Correct positioning, Modified ADL techniques, Progress toward Goal/Update tx plan, Purpose of tx/functional activities, Safety issues, Transfer techniques Teaching Recipient: Patient Teaching Methods: Demonstration, Discussion Response to Teaching: Verbalize Understanding, Return Demonstration, Reinforcement Needed OT Short Term Goals Short Term Goals Time Frame: Dec 11, 2020 Shower/bathe self: 4 Upper body dressin Lower body dressin OT [facility] Goals Cylinder Checker Goals Time Frame: Dec 20, 2020 Eating (QC): 6 Oral Hygiene (QC): 6 Toileting Hygiene (QC): 6 Shower/Bathe Self (QC): 6 Upper Body Dressing (QC): 6 Lower Body Dressing (QC): 6 On/Off Footwear (QC): 6 Additional Goals: 1-Demonstrate ADL Tasks, 2-Verbalize Understanding, 3- ImproveStrength/Leti 1=Demonstrate adherence to instructed precautions during ADL tasks. 2=Patient will verbalize/demonstrate understanding of assistive devices/modif ications for ADL. 3=Patient will improve strength/tolerance for activity to enable patient to perform ADL's. OT Education/Plan Problem List/Assessment Assessment: Decreased Activ Tolerance, Decreased UE Strength, Dependent Transfers, Impaired Bed Mobility, Impaired Funct Balance, Impaired I ADL's, Impaired Self-Care Skills Discharge Recommendations Plan/Recommendations: Continue POC Therapy Discharge Recommendati: Home & Family, Post Acute OT Treatment Plan/Plan of Care Treatment,Training & Education: Yes Patient would benefit from OT for education, treatment and training to promote independence in ADL's, mobility, safety and/or upper extremity function for ADL's. Plan of Care: ADL Retraining, Functional Mobility, Group Exercise/Act as Ind, UE Funct Exercise/Act Treatment Duration: Dec 20, 2020 Frequency: Modified Program (IRF) Estimated Hrs Per Day: 1 hour per day Rehab Potential: Fair Time/GCodes Start Time: 11:00 Stop Time: 12:00 Total Time Billed (hr/min): 60 Billed Treatment Time 1, ADL 4 (60) KIAH LIMA OTR Nov 29, 2020 12:24
[2020-11-29] MEDS: SALINE NASAL SPRAY (OCEAN) 45 ML BTL PRN (13:22)
[2020-11-29] MEDS: SOD CHL GEL 0.5 OZ (AYR SALINE NASAL GEL) TUBE TOP PRN (13:22)
[2020-11-29] MEDS: CATHETER FLUSH 10 ML SYR IV SCH ×2 (13:26→21:00)
--- NOTE | 2020-11-29 13:54 | PM&R Progress Note ---
Subjective HPI/CC On Admission Date Seen by Provider: Nov 29, 2020 Time Seen by Provider: 14:30 Subjective/Events-last exam 11/29/20: No new issues Midline was placed now flushes maintained Much improved status Down to 1 L of oxygen Increased oxygen requirement with exercise Still with Mejia catheter in place Upright in wheelchair today Dramatic improvement 11/28/20: Slept a bit better Midline for Venofer will be placed Much improved status BSC today Mejia cath replaced 11/27/20: Pt remains on 1 liter per minute of oxygen Appears to be much improved today Cystoscope done today showing large prostate Proscar along with Flomax was initiated Cath was done and obtained 1000cc of urine Nystatin cream and powder will be initiated Overall much improved 11/26/20: Pt did not sleep last night due to urinary frequency Had to do straight in and out cath x4 last night Dr. Marsh will be updated Blood in the urine 1 liter of O2 now but will need a higher level when he is working out CT chest and ABG reviewed 11/25/20: ABG is pending from not being drawn yet CT of the chest will be performed, Dr. Schrader has been updated Bowels moved yesterday 11/24/20: Venofer IV started and I explained why I started that for him Will check CT scan of chest tomorrow and consult Dr Schrader Labs and ABG ordered as well Still very tachypneic with conversation and at rest Monitoring BP 2L/min 11/23/20: No orthostasis today Worked with PT OT BM++ O2 maintained 11/22/20: Hgb 8.6 today Feels better since IVF 500cc yesterday and changed cardiac meds by Dr Cisneros [facility] was born and he is thrilled about that Mejia cath still in place Fecal incontinence noted RT left him without O2 since he was good BRIEFLY on room air after Nebs for 1 hour and spot checked and he was at 85% and he was very short of breath just resting 11/21/20: Had episode of hypotension 76/40 with symptoms when got to edge of bed so laid back down, Cardiology notified and given 500cc of IVF Patient is on a waiver due to COVID and hypoxia for slow therapy and only 120 minutes per day Cardizem CD 120mg now after changed by Dr Cisneros ECHO done Stopped Lasix Mejia cath remains in place Review of Systems General: Fatigue, Malaise Pulmonary: Dyspnea Genitourinary: Retention Objective Exam Vital Signs Vital Signs Date Time Temp Pulse Resp B/P (MAP) Pulse Ox O2 Delivery O2 Flow Rate FiO2 11/29/20 17:47 37.4 93 18 107/66 (80) 97 Nasal Cannula 3.00 Capillary Refill : Less Than 3 Seconds General Appearance: No Apparent Distress, WD/WN, Chronically ill, Thin HEENT: PERRL/EOMI, Normal ENT Inspection, Pharynx Normal Neck: Full Range of Motion, Normal Inspection, Non Tender, Supple, Carotid Bruit Respiratory: Chest Non Tender, Lungs Clear, No Respiratory Distress, Accessory Muscle Use, Decreased Breath Sounds Cardiovascular: Regular Rate, Rhythm, No Edema, No Gallop, No JVD, No Murmur, Normal Peripheral Pulses Gastrointestinal: Normal Bowel Sounds, No Organomegaly, No Pulsatile Mass, Non Tender, Soft Back: Normal Inspection, No CVA Tenderness, No Vertebral Tenderness Extremity: Normal Capillary Refill, Normal Inspection, Normal Range of Motion, Non Tender, No Calf Tenderness, No Pedal Edema Neurologic/Psychiatric: Alert, Oriented x3, No Motor/Sensory Deficits, Normal Mood/Affect, Motor Weakness (generalized 2/5 lower extremities, 3/5 upper extremities) Skin: Normal Color, Warm/Dry Lymphatic: No Adenopathy Results/Procedures Lab Patient resulted labs reviewed. FIM Transfers Therapy Code Descriptions/Definitions Functional [place] Measure: 0=Not Assessed/NA 4=Minimal Assistance 1=Total Assistance 5=Supervision or Setup 2=Maximal Assistance 6=Modified [place] 3=Moderate Assistance 7=Complete IndependenceSCALE: Activities may be completed with or without assistive devices. 6-Othxfbzsvy-qaviwyk completes the activity by him/herself with no assistance from a helper. 5-Set-up or Clean-up Assistance-helper sets up or cleans up; patient completes activity. [place] assists only prior to or following the activity. 4-Supervision or Touching Assistance-helper provides verbal cues and/or touching/steadying and/or contact guard assistance as patient completes activity. Assistance may be provided throughout the activity or intermittently. 3-Partial/Moderate Assistance-helper does LESS THAN HALF the effort. [place] lifts, holds or supports trunk or limbs, but provides less than half the effort. 2-Substantial/Maximal Assistance-helper does MORE THAN HALF the effort. [place] lifts or holds trunk or limbs and provides more than half the effort. 9-Jkccbvblh-odffhz does ALL the effort. Patient does none of the effort to complete the activity. Or, the assistance of 2 or more helpers is required for the patient to complete the activity. If activity was not attempted, code reason: 7-Patient Refused. 9-Not Applicable-not attempted and the patient did not perform the activity before the current illness, exacerbation or injury. 10-Not Attempted due to Environmental Limitations-(lack of equipment, weather restraints, etc.). 88-Not Attempted due to Medical Conditions or Safety Concerns. Roll Left to Right (QC): 4 Sit to Lying (QC): 2 Sit to Stand (QC): 3 Chair/Pdf-ge-Yljgj Xfer(QC): 3 Car Transfer (QC): 2 Gait Training Does the Patient Walk?: No and Walking Goal IS indicated Walk 10 feet (QC): 88 Walk 50 ft with 2 Turns(QC): 88 Walk 150 ft (QC): 88 Walking 10ft/uneven surface-QC: 88 Wheelchair Training Does the Pt Use a Wheelchair?: Yes Wheel 50 ft with 2 turns (QC): 4 Wheel 150 ft (QC): 4 Type of Wheelchair: Manual Stair Training 1 Step (curb) (QC): 88 4 Steps (QC): 88 12 Steps (QC): 88 Balance Picking up an Object (QC): 88 ADL-Treatment Eating (QC): 6 Oral Hygiene (QC): 5 (s/u EOB) Bathing Location: L Arm, R Arm, L Upper Leg, R Upper Leg, Chest, Abdomen, Buttocks, Perineal Area Shower/Bathe Self (QC): 4 (SBA-SUP while on sc. Completes all areas (excluding B feet)) Upper Body Dressing (QC): 5 (s/u gown.) Lower Body Dressing (QC): 1 (TD due to mod A x2 for sit to stand and manipulation) On/Off Footwear (QC): 2 (max A don/ doffing.) Toileting Hygiene (QC): 4 (SBA/ cues for continuation. ) Toilet Transfer (QC): 1 (mod A x2) Assessment/Plan Assessment and Plan Assess & Plan/Chief Complaint Assessment: Myopathy COVID-19 PNA Urinary retention Mejia cath in place Bowel incontinence Hypoxia O2 dependent BPH Frail Advanced age Plan: IRF protocol but 120 minutes per day to accommodate hypoxia at activity [place] meds Melatonin at night 11/21/20: s/o IVF Monitor hypotension and hypoxia Appreciate Dr Cisneros ECHO done Add Remeron for sleep with Melatonin 11/22/20: No possibility of weaning O2 for now with this patient so needs on 21/06 and will update RT Increase activity 11/23/20: Maintain O2 Nebs Monitor BP 11/24/20: Venofer Labs and ABG and CT chest in am Dr Schrader consultation Maintain O2 Very fragile lungs 11/25/20: CT chest ABG Dr Schrader consultation 11/26/20: Dr Schrader appreciated Dr Marsh appreciated 11/27/20: Dr Marsh appreciated Monitor O2 11/28/20: Mejia cath in place Midline Venofer 11/29/20: Midline flushes Venofer Monitor closely Dramatic improvement (1) Myopathy (2) COVID-19 (3) Hypoxia (4) Urinary retention (5) Mejia catheter in place (6) BPH (benign prostatic hyperplasia) (7) Bowel incontinence (8) Supplemental oxygen dependent (9) Advanced age (10) Frailty BARB COLLINS DO Nov 29, 2020 13:54
[2020-11-29 17:47] VITALS: BP 107/66
[2020-11-29 20:54] VITALS: BP 96/59
[2020-11-29] MEDS: MONTELUKAST 10 MG (SINGULAIR) TAB PO SCH (20:55)
[2020-11-29] MEDS: MELATONIN 10 MG TABLET PO SCH (20:55)
[2020-11-29] MEDS: MIRTAZAPINE 15 MG (REMERON) TAB PO SCH (20:55)
[2020-11-30] MEDS: CATHETER FLUSH 10 ML SYR IV SCH ×3 (04:31→21:34)
[2020-11-30 05:20] VITALS: BP 113/64
--- NOTE | 2020-11-30 07:29 | PM&R Progress Note ---
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 Up in chair today BM++ Good outlook O2 at 3L/min Increase O2 during therapies 11/29/20: No new issues Midline was placed now flushes maintained Much improved status Down to 1 L of oxygen Increased oxygen requirement with exercise Still with Mejia catheter in place Upright in wheelchair today Dramatic improvement 11/28/20: Slept a bit better Midline for Venofer will be placed Much improved status BSC today Mejia cath replaced 11/27/20: Pt remains on 1 liter per minute of oxygen Appears to be much improved today Cystoscope done today showing large prostate Proscar along with Flomax was initiated Cath was done and obtained 1000cc of urine Nystatin cream and powder will be initiated Overall much improved 11/26/20: Pt did not sleep last night due to urinary frequency Had to do straight in and out cath x4 last night Dr. Marsh will be updated Blood in the urine 1 liter of O2 now but will need a higher level when he is working out CT chest and ABG reviewed 11/25/20: ABG is pending from not being drawn yet CT of the chest will be performed, Dr. Schrader has been updated Bowels moved yesterday 11/24/20: Venofer IV started and I explained why I started that for him Will check CT scan of chest tomorrow and consult Dr Schrader Labs and ABG ordered as well Still very tachypneic with conversation and at rest Monitoring BP 2L/min 11/23/20: No orthostasis today Worked with PT OT BM++ O2 maintained 11/22/20: Hgb 8.6 today Feels better since IVF 500cc yesterday and changed cardiac meds by Dr Blayne Rendon ismael was born and he is thrilled about that Mejia cath still in place Fecal incontinence noted RT left him without O2 since he was good BRIEFLY on room air after Nebs for 1 hour and spot checked and he was at 85% and he was very short of breath just resting 11/21/20: Had episode of hypotension 76/40 with symptoms when got to edge of bed so laid back down, Cardiology notified and given 500cc of IVF Patient is on a waiver due to COVID and hypoxia for slow therapy and only 120 minutes per day Cardizem CD 120mg now after changed by Dr Cisneros ECHO done Stopped Lasix Mejia cath remains in place Review of Systems General: Fatigue Pulmonary: Dyspnea, Cough Objective Exam Vital Signs Vital Signs Date Time Temp Pulse Resp B/P (MAP) Pulse Ox O2 Delivery O2 Flow Rate FiO2 12/01/20 07:15 90 Nasal Cannula 3.00 12/01/20 05:10 36.6 77 18 127/78 (94) Capillary Refill : Less Than 3 Seconds General Appearance: No Apparent Distress, WD/WN, Chronically ill, Thin HEENT: PERRL/EOMI, Normal ENT Inspection, Pharynx Normal Neck: Full Range of Motion, Normal Inspection, Non Tender, Supple, Carotid Bruit Respiratory: Chest Non Tender, Lungs Clear, No Respiratory Distress, Accessory Muscle Use, Decreased Breath Sounds Cardiovascular: Regular Rate, Rhythm, No Edema, No Gallop, No JVD, No Murmur, Normal Peripheral Pulses Gastrointestinal: Normal Bowel Sounds, No Organomegaly, No Pulsatile Mass, Non Tender, Soft Back: Normal Inspection, No CVA Tenderness, No Vertebral Tenderness Extremity: Normal Capillary Refill, Normal Inspection, Normal Range of Motion, Non Tender, No Calf Tenderness, No Pedal Edema Neurologic/Psychiatric: Alert, Oriented x3, No Motor/Sensory Deficits, Normal Mood/Affect, Motor Weakness (generalized 2/5 lower extremities, 3/5 upper extremities) Skin: Normal Color, Warm/Dry Lymphatic: No Adenopathy Results/Procedures Lab Patient resulted labs reviewed. FIM Transfers Therapy Code Descriptions/Definitions Functional [place] Measure: 0=Not Assessed/NA 4=Minimal Assistance 1=Total Assistance 5=Supervision or Setup 2=Maximal Assistance 6=Modified [place] 3=Moderate Assistance 7=Complete IndependenceSCALE: Activities may be completed with or without assistive devices. 8-Nurzfcsgjz-euskroc completes the activity by him/herself with no assistance from a helper. 5-Set-up or Clean-up Assistance-helper sets up or cleans up; patient completes activity. [place] assists only prior to or following the activity. 4-Supervision or Touching Assistance-helper provides verbal cues and/or touching/steadying and/or contact guard assistance as patient completes activity. Assistance may be provided throughout the activity or intermittently. 3-Partial/Moderate Assistance-helper does LESS THAN HALF the effort. [place] lifts, holds or supports trunk or limbs, but provides less than half the effort. 2-Substantial/Maximal Assistance-helper does MORE THAN HALF the effort. [place] lifts or holds trunk or limbs and provides more than half the effort. 3-Yajgrvubq-zzoifr does ALL the effort. Patient does none of the effort to complete the activity. Or, the assistance of 2 or more helpers is required for the patient to complete the activity. If activity was not attempted, code reason: 7-Patient Refused. 9-Not Applicable-not attempted and the patient did not perform the activity before the current illness, exacerbation or injury. 10-Not Attempted due to Environmental Limitations-(lack of equipment, weather restraints, etc.). 88-Not Attempted due to Medical Conditions or Safety Concerns. Roll Left to Right (QC): 4 Sit to Lying (QC): 2 Sit to Stand (QC): 3 Chair/Vjd-lc-Kqzxy Xfer(QC): 3 Car Transfer (QC): 2 Gait Training Does the Patient Walk?: No and Walking Goal IS indicated Walk 10 feet (QC): 88 Walk 50 ft with 2 Turns(QC): 88 Walk 150 ft (QC): 88 Walking 10ft/uneven surface-QC: 88 Wheelchair Training Does the Pt Use a Wheelchair?: Yes Wheel 50 ft with 2 turns (QC): 4 Wheel 150 ft (QC): 4 Type of Wheelchair: Manual Stair Training 1 Step (curb) (QC): 88 4 Steps (QC): 88 12 Steps (QC): 88 Balance Picking up an Object (QC): 88 ADL-Treatment Eating (QC): 6 Oral Hygiene (QC): 5 (s/u EOB) Bathing Location: L Arm, R Arm, L Upper Leg, R Upper Leg, Chest, Abdomen, Butt ocks, Perineal Area Shower/Bathe Self (QC): 4 (SBA-SUP while on sc. Completes all areas (excluding B feet)) Upper Body Dressing (QC): 5 (s/u gown.) Lower Body Dressing (QC): 1 (TD due to mod A x2 for sit to stand and manipulation) On/Off Footwear (QC): 2 (max A don/ doffing.) Toileting Hygiene (QC): 4 (SBA/ cues for continuation. ) Toilet Transfer (QC): 1 (mod A x2) Assessment/Plan Assessment and Plan Assess & Plan/Chief Complaint Assessment: Myopathy COVID-19 PNA Urinary retention Mejia cath in place Bowel incontinence Hypoxia O2 dependent BPH Frail Advanced age Plan: IRF protocol but 120 minutes per day to accommodate hypoxia at activity [place] meds Melatonin at night 11/21/20: s/o IVF Monitor hypotension and hypoxia Appreciate Dr Cisneros ECHO done Add Remeron for sleep with Melatonin 11/22/20: No possibility of weaning O2 for now with this patient so needs on 21/06 and will update RT Increase activity 11/23/20: Maintain O2 Nebs Monitor BP 11/24/20: Venofer Labs and ABG and CT chest in am Dr Schrader consultation Maintain O2 Very fragile lungs 11/25/20: CT chest ABG Dr Schrader consultation 11/26/20: Dr Schrader appreciated Dr Marsh appreciated 11/27/20: Dr Marsh appreciated Monitor O2 11/28/20: Mejia cath in place Midline Venofer 11/29/20: Midline flushes Venofer Monitor closely Dramatic improvement 11/30/20: Dramatic improvement continues Monitor closely Increase O2 with therapy (1) Myopathy (2) COVID-19 (3) Hypoxia (4) Urinary retention (5) Mejia catheter in place (6) BPH (benign prostatic hyperplasia) (7) Bowel incontinence (8) Supplemental oxygen dependent (9) Advanced age (10) Frailty BARB COLLINS DO Nov 30, 2020 07:29
[2020-11-30] MEDS: RT-ALBUTEROL/IPRATROPIUM 3 ML (DUONEB) VIAL IH SCH ×2 (07:37→19:15)
[2020-11-30] MEDS: ADVAIR HFA 115/21 MCG INHALER 8 GM IH SCH ×2 (07:37→19:15)
[2020-11-30] MEDS: IRON SUCROSE 200 MG/10 ML (VENOFER) VIAL IV SCH (08:44)
[2020-11-30] MEDS: predniSONE 20 MG TAB PO SCH (08:54)
[2020-11-30] MEDS: APIXABAN 5 MG (ELIQUIS) TABLET PO SCH ×2 (08:54→21:35)
[2020-11-30] MEDS: LACTOBACILLUS ACIDOPHILUS (PROBIOTIC) CAPSULE PO SCH ×2 (08:54→21:35)
[2020-11-30] MEDS: FOLIC ACID 1 MG TAB PO SCH (08:55)
[2020-11-30] MEDS: TAMSULOSIN 0.4 MG (FLOMAX) CAP PO SCH ×2 (08:55→21:35)
[2020-11-30] MEDS: LORATADINE (CLARITIN) 10 MG TAB PO SCH (08:55)
[2020-11-30] MEDS: CYANOCOBALAMIN 1,000 MCG (VITAMIN B-12) TABLET NG SCH (08:55)
[2020-11-30] MEDS: PANTOPRAZOLE 40 MG (PROTONIX) TAB PO SCH (08:55)
[2020-11-30] MEDS: meTOprolol TARTRATE 25 MG (LOPRESSOR) TABLET PO SCH ×2 (08:55→21:35)
[2020-11-30] MEDS: ROFLUMILAST 500 MCG TAB (DALIRESP) NG SCH (08:55)
[2020-11-30] MEDS: FINASTERIDE (PROSCAR) 5 MG TAB PO SCH (08:55)
[2020-11-30] MEDS: NYSTATIN CREAM (MYCOSTATIN) 30 GM TUBE TP SCH ×3 (08:56→21:35)
[2020-11-30] MEDS: MICONAZOLE 2% POWDER (DESENEX AF) 90 GM TOP SCH ×2 (08:56→21:36)
[2020-11-30] MEDS: polyethylene glycoL POWDER 17 GM (MIRALAX) PACK PO SCH ×2 (09:00→21:35)
[2020-11-30] MEDS: SENNA W/DOCUSATE (SENOKOT S) TABLET PO SCH ×2 (09:00→21:36)
[2020-11-30] MEDS: DOCUSATE SODIUM 100 MG (COLACE) CAP PO SCH ×3 (09:00→21:39)
--- NOTE | 2020-11-30 10:08 | Physical Therapy Daily Note ---
PT Daily Note-Current Subjective Pt laying Supine in bed upon arrival. Nurse asked for assistance in scooting up in bed. Pt agrees to sit in recliner instead. Pain Location: No Pain Reported Mental Status Patient Orientation: Person, Place, Situation Attachments: Oxygen (4L), Mejia Catheter Transfers SCALE: Activities may be completed with or without assistive devices. 6-Tpnkyumphy-kajrrzv completes the activity by him/herself with no assistance from a helper. 5-Set-up or Clean-up Assistance-helper sets up or cleans up; patient completes activity. [place] assists only prior to or following the activity. 4-Supervision or Touching Assistance-helper provides verbal cues and/or touching/steadying and/or contact guard assistance as patient completes activity. Assistance may be provided throughout the activity or intermittently. 3-Partial/Moderate Assistance-helper does LESS THAN HALF the effort. [place] lifts, holds or supports trunk or limbs, but provides less than half the effort. 2-Substantial/Maximal Assistance-helper does MORE THAN HALF the effort. [place] lifts or holds trunk or limbs and provides more than half the effort. 2-Jtwwvexcs-tlvwfy does ALL the effort. Patient does none of the effort to complete the activity. Or, the assistance of 2 or more helpers is required for the patient to complete the activity. If activity was not attempted, code reason: 7-Patient Refused. 9-Not Applicable-not attempted and the patient did not perform the activity b efore the current illness, exacerbation or injury. 10-Not Attempted due to Environmental Limitations-(lack of equipment, weather restraints, etc.). 88-Not Attempted due to Medical Conditions or Safety Concerns. Lying to Sitting/Side of Bed(Q: 4 Sit to Stand (QC): 3 Weight Bearing Full Weight Bearing Full Weight Bearing Exercises Supine Ex: Ankle pumps, Quad Set, Glut sets, Straight leg raise, Hip abd/add Supine Reps: 12 Treatments TF from Supine to EOB then SPT from EOB to recliner at Mod A x2. Reclines in recliner and completes Supine Ex. Repositioned to comfort, all needs met & call light next to pt. Assessment Current Status: Good Progress Pt continues to be willing to work with staff, even working on EX individually as he can. Pt is gaining strength and improving with TF. PT Short Term Goals Short Term Goals Time Frame: Nov 27, 2020 Roll Left & Right: 3 Sit to lyin Lying to sitting on side of be: 3 Sit to stand: 3 Chair/evn-fa-yokgl transfer: 3 Walk 10 feet: 3 PT Sizing Machine Operator Goals Sizing Machine Operator Goals PT Sizing Machine Operator Goals Time Frame: Dec 11, 2020 Roll Left & Right (QC): 4 Sit to Lying (QC): 4 Lying-Sitting on Side/Bed(QC): 4 Sit to Stand (QC): 4 Chair/Svh-di-Dlyzf Xfer(QC): 4 Toilet Transfer (QC): 4 Car Transfer (QC): 3 Does the Patient Walk: Yes Walk 10 feet (QC): 3 Walk 50ft with 2 Turns (QC): 3 Walk 150 ft (QC): 88 Walking 10ft on Uneven Surface: 3 1 Step (curb) (QC): 3 4 Steps (QC): 88 12 Steps (QC): 88 Picking up an Object (QC): 88 Wheel 50 feet with 2 turns (QC: 6 Wheel 150 feet: 6 PT Plan Problem List Problem List: Activity Tolerance, Functional Strength, Transfer Treatment/Plan Treatment Plan: Continue Plan of Care Treatment Plan: Bed Mobility, Education, Functional Activity Leti, Functional Strength, Group Therapy, Gait, Safety, Therapeutic Exercise, Transfers Treatment Duration: Dec 11, 2020 Frequency: Modified Program (IRF) Estimated Hrs Per Day: 1 hour per day Patient and/or Family Agrees t: Yes Safety Risks/Education Patient Education: Transfer Techniques, Correct Positioning, Safety Issues Teaching Recipient: Patient Teaching Methods: Discussion Response to Teaching: Verbalize Understanding Time/GCodes Time In: 915 Time Out: 945 Total Billed Treatment Time: 30 Total Billed Treatment 1, FA (15m) & EX (15m) KARYN BAKER SUPERVISOR URANI[employer] PROCESSING Nov 30, 2020 10:08
--- NOTE | 2020-11-30 15:56 | Progress Note - Cardiology ---
Cardiology SOAP Progress Note Subjective: Gen malaise No cp or palp or syncope No shortness of breath at rest Short of breath with activity No n/v Objective: I&O/Vital Signs 11/30/20 11/30/20 11/30/20 05:20 07:37 09:00 Temp 36.8 Pulse 74 Resp 18 B/P (MAP) 113/64 (80) Pulse Ox 98 97 O2 Delivery Nasal Cannula Nasal Cannula Nasal Cannula O2 Flow Rate 4.00 3.00 3.00 11/30/20 00:00 Intake Total 960 ml Output Total 700 ml Balance 260 ml Constitutional: AAO x 3, well-developed, well-nourished Respiratory: No accessory muscle use; other (good bilat air entry, somewhat diminished at the bases) Cardiovascular: irregularly irregular, S1 and S2, systolic murmur (2/6 SHERMAN at card base) Gastrointestional: No tender; soft; No guarding, No rebound; audible bowel sounds Extremities: No clubbing, No cyanosis, No significant edema Neurologic/Psychiatric: oriented x 3, other (moves all limbs) Skin: No rash on exposed areas, No ulcerations on exposed areas A/P: Assessment: PAF, currently NSR S/p ac resp failure due to COVID-19 in early 2019 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 Diuretics stopped on 11/21/20. Sildenafil reduced on 11/23/20 and stopped on 11/25/20 Plan: * Continue current regiment * Monitor labs from time to time LIONEL LUONG MD FACP FAC CCDS Nov 30, 2020 15:56
[2020-11-30 16:20] VITALS: BP 100/62
[2020-11-30 21:32] VITALS: BP 105/66
[2020-11-30] MEDS: MIRTAZAPINE 15 MG (REMERON) TAB PO SCH (21:35)
[2020-11-30] MEDS: MELATONIN 10 MG TABLET PO SCH (21:35)
[2020-11-30] MEDS: MONTELUKAST 10 MG (SINGULAIR) TAB PO SCH (21:35)
[2020-12-01 05:10] VITALS: BP 127/78
[2020-12-01] MEDS: CATHETER FLUSH 10 ML SYR IV SCH ×3 (05:42→21:13)
[2020-12-01] MEDS: ADVAIR HFA 115/21 MCG INHALER 8 GM IH SCH ×2 (07:14→21:55)
[2020-12-01] MEDS: RT-ALBUTEROL/IPRATROPIUM 3 ML (DUONEB) VIAL IH SCH ×2 (07:14→21:55)
[2020-12-01] MEDS: CYANOCOBALAMIN 1,000 MCG (VITAMIN B-12) TABLET NG SCH (07:50)
[2020-12-01] MEDS: meTOprolol TARTRATE 25 MG (LOPRESSOR) TABLET PO SCH ×2 (07:50→21:16)
[2020-12-01] MEDS: PANTOPRAZOLE 40 MG (PROTONIX) TAB PO SCH (07:50)
[2020-12-01] MEDS: LACTOBACILLUS ACIDOPHILUS (PROBIOTIC) CAPSULE PO SCH ×2 (07:50→21:14)
[2020-12-01] MEDS: LORATADINE (CLARITIN) 10 MG TAB PO SCH (07:50)
[2020-12-01] MEDS: FINASTERIDE (PROSCAR) 5 MG TAB PO SCH (07:51)
[2020-12-01] MEDS: TAMSULOSIN 0.4 MG (FLOMAX) CAP PO SCH ×2 (07:51→21:14)
[2020-12-01] MEDS: FOLIC ACID 1 MG TAB PO SCH (07:51)
[2020-12-01] MEDS: DOCUSATE SODIUM 100 MG (COLACE) CAP PO SCH ×2 (07:51→21:16)
[2020-12-01] MEDS: ROFLUMILAST 500 MCG TAB (DALIRESP) NG SCH (07:51)
[2020-12-01] MEDS: APIXABAN 5 MG (ELIQUIS) TABLET PO SCH ×2 (07:51→21:13)
[2020-12-01] MEDS: predniSONE 20 MG TAB PO SCH (07:51)
[2020-12-01] MEDS: SENNA W/DOCUSATE (SENOKOT S) TABLET PO SCH ×2 (07:51→21:16)
[2020-12-01] MEDS: NYSTATIN CREAM (MYCOSTATIN) 30 GM TUBE TP SCH ×3 (07:52→21:17)
[2020-12-01] MEDS: ALPRAZolam 0.25 MG (XANAX) TAB PO PRN (09:53)
[2020-12-01] MEDS: polyethylene glycoL POWDER 17 GM (MIRALAX) PACK PO SCH ×2 (09:59→21:16)
[2020-12-01] MEDS: MICONAZOLE 2% POWDER (DESENEX AF) 90 GM TOP SCH ×2 (09:59→21:17)
--- NOTE | 2020-12-01 14:08 | PM&R Progress Note ---
Subjective HPI/CC On Admission Date Seen by Provider: Dec 01, 2020 Time Seen by Provider: 14:30 Subjective/Events-last exam 12/01/20: Bowel incontinence is an issue Urinary retention still requires valdes cath Increasing strength Monitoring closely 11/30/20: Myopathy is severe Up in chair today BM++ Good outlook O2 at 3L/min Increase O2 during therapies 11/29/20: No new issues Midline was placed now flushes maintained Much improved status Down to 1 L of oxygen Increased oxygen requirement with exercise Still with Valdes catheter in place Upright in wheelchair today Dramatic improvement 11/28/20: Slept a bit better Midline for Venofer will be placed Much improved status BSC today Valdes cath replaced 11/27/20: Pt remains on 1 liter per minute of oxygen Appears to be much improved today Cystoscope done today showing large prostate Proscar along with Flomax was initiated Cath was done and obtained 1000cc of urine Nystatin cream and powder will be initiated Overall much improved 11/26/20: Pt did not sleep last night due to urinary frequency Had to do straight in and out cath x4 last night Dr. Marsh will be updated Blood in the urine 1 liter of O2 now but will need a higher level when he is working out CT chest and ABG reviewed 11/25/20: ABG is pending from not being drawn yet CT of the chest will be performed, Dr. Schrader has been updated Bowels moved yesterday 11/24/20: Venofer IV started and I explained why I started that for him Will check CT scan of chest tomorrow and consult Dr Schrader Labs and ABG ordered as well Still very tachypneic with conversation and at rest Monitoring BP 2L/min 11/23/20: No orthostasis today Worked with PT OT BM++ O2 maintained 11/22/20: Hgb 8.6 today Feels better since IVF 500cc yesterday and changed cardiac meds by Dr Blayne guevara was born and he is thrilled about that Valdes cath still in place Fecal incontinence noted RT left him without O2 since he was good BRIEFLY on room air after Nebs for 1 hour and spot checked and he was at 85% and he was very short of breath just resting 11/21/20: Had episode of hypotension 76/40 with symptoms when got to edge of bed so laid back down, Cardiology notified and given 500cc of IVF Patient is on a waiver due to COVID and hypoxia for slow therapy and only 120 minutes per day Cardizem CD 120mg now after changed by Dr Cisneros ECHO done Stopped Lasix Valdes cath remains in place Review of Systems General: Fatigue, Malaise Neurological: Weakness, Incoordination Objective Exam Vital Signs Vital Signs Date Time Temp Pulse Resp B/P (MAP) Pulse Ox O2 Delivery O2 Flow Rate FiO2 12/01/20 17:15 37.0 78 18 100/61 (74) 97 Nasal Cannula 3.00 Capillary Refill : Less Than 3 Seconds General Appearance: No Apparent Distress, WD/WN, Chronically ill, Thin HEENT: PERRL/EOMI, Normal ENT Inspection, Pharynx Normal Neck: Full Range of Motion, Normal Inspection, Non Tender, Supple, Carotid Bruit Respiratory: Chest Non Tender, Lungs Clear, No Respiratory Distress, Accessory Muscle Use, Decreased Breath Sounds Cardiovascular: Regular Rate, Rhythm, No Edema, No Gallop, No JVD, No Murmur, Normal Peripheral Pulses Gastrointestinal: Normal Bowel Sounds, No Organomegaly, No Pulsatile Mass, Non Tender, Soft Back: Normal Inspection, No CVA Tenderness, No Vertebral Tenderness Extremity: Normal Capillary Refill, Normal Inspection, Normal Range of Motion, Non Tender, No Calf Tenderness, No Pedal Edema Neurologic/Psychiatric: Alert, Oriented x3, No Motor/Sensory Deficits, Normal Mood/Affect, Motor Weakness (generalized 2/5 lower extremities, 3/5 upper extremities) Skin: Normal Color, Warm/Dry Lymphatic: No Adenopathy Results/Procedures Lab Patient resulted labs reviewed. FIM Transfers Therapy Code Descriptions/Definitions Functional [place] Measure: 0=Not Assessed/NA 4=Minimal Assistance 1=Total Assistance 5=Supervision or Setup 2=Maximal Assistance 6=Modified [place] 3=Moderate Assistance 7=Complete IndependenceSCALE: Activities may be completed with or without assistive devices. 9-Ohusbtvmtt-vciwajl completes the activity by him/herself with no assistance from a helper. 5-Set-up or Clean-up Assistance-helper sets up or cleans up; patient completes activity. [place] assists only prior to or following the activity. 4-Supervision or Touching Assistance-helper provides verbal cues and/or touching/steadying and/or contact guard assistance as patient completes activity. Assistance may be provided throughout the activity or intermittently. 3-Partial/Moderate Assistance-helper does LESS THAN HALF the effort. [place] lifts, holds or supports trunk or limbs, but provides less than half the effort. 2-Substantial/Maximal Assistance-helper does MORE THAN HALF the effort. [place] lifts or holds trunk or limbs and provides more than half the effort. 6-Sfiwkfoel-ytumkx does ALL the effort. Patient does none of the effort to complete the activity. Or, the assistance of 2 or more helpers is required for the patient to complete the activity. If activity was not attempted, code reason: 7-Patient Refused. 9-Not Applicable-not attempted and the patient did not perform the activity before the current illness, exacerbation or injury. 10-Not Attempted due to Environmental Limitations-(lack of equipment, weather restraints, etc.). 88-Not Attempted due to Medical Conditions or Safety Concerns. Roll Left to Right (QC): 4 Sit to Lying (QC): 2 Sit to Stand (QC): 3 Chair/Odo-hg-Dnvsg Xfer(QC): 3 Car Transfer (QC): 2 Gait Training Does the Patient Walk?: No and Walking Goal IS indicated Walk 10 feet (QC): 88 Walk 50 ft with 2 Turns(QC): 88 Walk 150 ft (QC): 88 Walking 10ft/uneven surface-QC: 88 Wheelchair Training Does the Pt Use a Wheelchair?: Yes Wheel 50 ft with 2 turns (QC): 4 Wheel 150 ft (QC): 4 Type of Wheelchair: Manual Stair Training 1 Step (curb) (QC): 88 4 Steps (QC): 88 12 Steps (QC): 88 Balance Picking up an Object (QC): 88 ADL-Treatment Eating (QC): 6 Oral Hygiene (QC): 5 (s/u EOB) Bathing Location: L Arm, R Arm, L Upper Leg, R Upper Leg, Chest, Abdomen, Buttocks, Perineal Area Shower/Bathe Self (QC): 4 (SBA-SUP while on sc. Completes all areas (excluding B feet)) Upper Body Dressing (QC): 5 (s/u gown.) Lower Body Dressing (QC): 1 (TD due to mod A x2 for sit to stand and manipulation) On/Off Footwear (QC): 2 (max A don/ doffing.) Toileting Hygiene (QC): 4 (SBA/ cues for continuation. ) Toilet Transfer (QC): 1 (mod A x2) Assessment/Plan Assessment and Plan Assess & Plan/Chief Complaint Assessment: Myopathy COVID-19 PNA Urinary retention Valdes cath in place Bowel incontinence Hypoxia O2 dependent BPH Frail Advanced age Plan: IRF protocol but 120 minutes per day to accommodate hypoxia at activity [place] meds Melatonin at night 11/21/20: s/o IVF Monitor hypotension and hypoxia Appreciate Dr Cisneros ECHO done Add Remeron for sleep with Melatonin 11/22/20: No possibility of weaning O2 for now with this patient so needs on 21/06 and will update RT Increase activity 11/23/20: Maintain O2 Nebs Monitor BP 11/24/20: Venofer Labs and ABG and CT chest in am Dr Schrader consultation Maintain O2 Very fragile lungs 11/25/20: CT chest ABG Dr Schrader consultation 11/26/20: Dr Schrader appreciated Dr Marsh appreciated 11/27/20: Dr Marsh appreciated Monitor O2 11/28/20: Valdes cath in place Midline Venofer 11/29/20: Midline flushes Venofer Monitor closely Dramatic improvement 11/30/20: Dramatic improvement continues Monitor closely Increase O2 with therapy 12/01/20: Bowel incontinence could complicate DC plans Monitor urinary retention closely (1) Myopathy (2) COVID-19 (3) Hypoxia (4) Urinary retention (5) Valdes catheter in place (6) BPH (benign prostatic hyperplasia) (7) Bowel incontinence (8) Supplemental oxygen dependent (9) Advanced age (10) Frailty BARB COLLINS DO Dec 01, 2020 14:07
--- NOTE | 2020-12-01 15:42 | Progress Note - Cardiology ---
Cardiology SOAP Progress Note Subjective: No cp or palp or syncope Gen malaise Shortness of breath with mild to mod exertion No n/v Objective: I&O/Vital Signs 12/01/20 12/01/20 12/01/20 05:10 07:15 09:00 Temp 36.6 Pulse 77 Resp 18 B/P (MAP) 127/78 (94) Pulse Ox 99 90 O2 Delivery Nasal Cannula Nasal Cannula Nasal Cannula O2 Flow Rate 3.00 3.00 3.00 12/01/20 00:00 Intake Total 650 ml Output Total 950 ml Balance -300 ml Constitutional: AAO x 3, well-developed, well-nourished Respiratory: No accessory muscle use; other (good bilat air entry, somewhat diminished at the bases) Cardiovascular: irregularly irregular, S1 and S2, systolic murmur (2/6 SHERMAN at card base) Gastrointestional: No tender; soft; No guarding, No rebound; audible bowel sounds Extremities: No clubbing, No cyanosis, No significant edema Neurologic/Psychiatric: oriented x 3, other (moves all limbs) Skin: No rash on exposed areas, No ulcerations on exposed areas A/P: Assessment: PAF, currently NSR S/p ac resp failure due to COVID-19 in early 2019 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 Diuretics stopped on 11/21/20. Sildenafil reduced on 11/23/20 and stopped on 11/25/20 Plan: * Continue current regiment * Monitor labs from time to time LIONEL LUONG MD FACP FAC CCDS Dec 01, 2020 15:42
[2020-12-01 17:15] VITALS: BP 100/61
[2020-12-01] MEDS: MIRTAZAPINE 15 MG (REMERON) TAB PO SCH (21:14)
[2020-12-01] MEDS: MELATONIN 10 MG TABLET PO SCH (21:14)
[2020-12-01 21:19] VITALS: BP 102/58
[2020-12-02 05:10] VITALS: BP 114/70
[2020-12-02] MEDS: CATHETER FLUSH 10 ML SYR IV SCH ×3 (05:27→20:56)
[2020-12-02 05:49] LABS: BASOPHILS % (AUTO) 0 % (0-10); EOSINOPHILS % (AUTO) 0 % (0-10); HEMATOCRIT 31 % (40-54); HEMOGLOBIN 9.4 g/dL (13.3-17.7); LYMPHOCYTES # (AUTO) 1.8 10^3/uL (1.0-4.0); LYMPHOCYTES % (AUTO) 23 % (12-44); MEAN CORPUSCULAR HEMOGLOBIN 29 pg (25-34); MEAN CORPUSCULAR HGB CONC 31 g/dL (32-36); MEAN CORPUSCULAR VOLUME 93 fL (80-99); MEAN PLATELET VOLUME 8.7 fL (9.0-12.2); MONOCYTES # (AUTO) 0.4 10^3/uL (0.0-1.0); MONOCYTES % (AUTO) 5 % (0-12); NEUTROPHILS # (AUTO) 5.2 10^3/uL (1.8-7.8); NEUTROPHILS % (AUTO) 68 % (42-75); PLATELET COUNT 200 10^3/uL (130-400); WHITE BLOOD COUNT 7.6 10^3/uL (4.3-11.0)
[2020-12-02 06:03] LABS: ALBUMIN 2.5 GM/DL (3.2-4.5)
[2020-12-02 06:04] LABS: CHLORIDE 104 MMOL/L (98-107); POTASSIUM 4.1 MMOL/L (3.6-5.0); SODIUM 137 MMOL/L (135-145)
[2020-12-02 06:05] LABS: CALCIUM 8.1 MG/DL (8.5-10.1)
[2020-12-02 06:06] LABS: GLUCOSE 87 MG/DL (70-105); TOTAL PROTEIN 4.9 GM/DL (6.4-8.2)
[2020-12-02 06:07] LABS: CARBON DIOXIDE 25 MMOL/L (21-32)
[2020-12-02 06:08] LABS: BILIRUBIN,TOTAL 0.2 MG/DL (0.1-1.0)
[2020-12-02 06:09] LABS: ALKALINE PHOSPHATASE 108 U/L (40-136)
[2020-12-02 06:10] LABS: CREATININE SERUM 0.59 MG/DL (0.60-1.30); GFR ESTIMATED > 60
[2020-12-02] MEDS: predniSONE 10 MG TAB PO SCH (06:10)
[2020-12-02 06:11] LABS: BUN/CREATININE RATIO 22
[2020-12-02 06:12] LABS: ALANINE AMINOTRANSFERASE 36 U/L (0-55)
[2020-12-02] MEDS: RT-ALBUTEROL/IPRATROPIUM 3 ML (DUONEB) VIAL IH SCH ×2 (07:34→20:09)
[2020-12-02] MEDS: ADVAIR HFA 115/21 MCG INHALER 8 GM IH SCH ×2 (07:35→20:11)
--- NOTE | 2020-12-02 09:11 | PM&R Progress Note ---
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 Up in chair today BM++ Good outlook O2 at 3L/min Increase O2 during therapies 11/29/20: No new issues Midline was placed now flushes maintained Much improved status Down to 1 L of oxygen Increased oxygen requirement with exercise Still with Valdes catheter in place Upright in wheelchair today Dramatic improvement 11/28/20: Slept a bit better Midline for Venofer will be placed Much improved status BSC today Valdes cath replaced 11/27/20: Pt remains on 1 liter per minute of oxygen Appears to be much improved today Cystoscope done today showing large prostate Proscar along with Flomax was initiated Cath was done and obtained 1000cc of urine Nystatin cream and powder will be initiated Overall much improved 11/26/20: Pt did not sleep last night due to urinary frequency Had to do straight in and out cath x4 last night Dr. Marsh will be updated Blood in the urine 1 liter of O2 now but will need a higher level when he is working out CT chest and ABG reviewed 11/25/20: ABG is pending from not being drawn yet CT of the chest will be performed, Dr. Schrader has been updated Bowels moved yesterday 11/24/20: Venofer IV started and I explained why I started that for him Will check CT scan of chest tomorrow and consult Dr Schrader Labs and ABG ordered as well Still very tachypneic with conversation and at rest Monitoring BP 2L/min 11/23/20: No orthostasis today Worked with PT OT BM++ O2 maintained 11/22/20: Hgb 8.6 today Feels better since IVF 500cc yesterday and changed cardiac meds by Dr Cisneros Justice guevara was born and he is thrilled about that Valdes cath still in place Fecal incontinence noted RT left him without O2 since he was good BRIEFLY on room air after Nebs for 1 hour and spot checked and he was at 85% and he was very short of breath just resting 11/21/20: Had episode of hypotension 76/40 with symptoms when got to edge of bed so laid back down, Cardiology notified and given 500cc of IVF Patient is on a waiver due to COVID and hypoxia for slow therapy and only 120 minutes per day Cardizem CD 120mg now after changed by Dr Cisneros ECHO done Stopped Lasix Valdes cath remains in place Review of Systems General: Fatigue, Malaise Pulmonary: Dyspnea Genitourinary: Incontinence Neurological: Weakness Objective Exam Vital Signs Vital Signs Date Time Temp Pulse Resp B/P (MAP) Pulse Ox O2 Delivery O2 Flow Rate FiO2 12/03/20 21:59 97 Nasal Cannula 3.00 12/03/20 16:45 37.3 89 16 104/73 (83) Capillary Refill : Less Than 3 Seconds General Appearance: No Apparent Distress, WD/WN, Chronically ill, Thin HEENT: PERRL/EOMI, Normal ENT Inspection, Pharynx Normal Neck: Full Range of Motion, Normal Inspection, Non Tender, Supple, Carotid Bruit Respiratory: Chest Non Tender, Lungs Clear, No Respiratory Distress, Accessory Muscle Use, Decreased Breath Sounds Cardiovascular: Regular Rate, Rhythm, No Edema, No Gallop, No JVD, No Murmur, Normal Peripheral Pulses Gastrointestinal: Normal Bowel Sounds, No Organomegaly, No Pulsatile Mass, Non Tender, Soft Back: Normal Inspection, No CVA Tenderness, No Vertebral Tenderness Extremity: Normal Capillary Refill, Normal Inspection, Normal Range of Motion, Non Tender, No Calf Tenderness, No Pedal Edema Neurologic/Psychiatric: Alert, Oriented x3, No Motor/Sensory Deficits, Normal Mood/Affect, Motor Weakness (generalized 2/5 lower extremities, 3/5 upper extremities) Skin: Normal Color, Warm/Dry Lymphatic: No Adenopathy Results/Procedures Lab Patient resulted labs reviewed. FIM Transfers Therapy Code Descriptions/Definitions Functional [place] Measure: 0=Not Assessed/NA 4=Minimal Assistance 1=Total Assistance 5=Supervision or Setup 2=Maximal Assistance 6=Modified [place] 3=Moderate Assistance 7=Complete IndependenceSCALE: Activities may be completed with or without assistive devices. 3-Gxsggxopfh-npzdtog completes the activity by him/herself with no assistance from a helper. 5-Set-up or Clean-up Assistance-helper sets up or cleans up; patient completes activity. [place] assists only prior to or following the activity. 4-Supervision or Touching Assistance-helper provides verbal cues and/or touching/steadying and/or contact guard assistance as patient completes activity. Assistance may be provided throughout the activity or intermittently. 3-Partial/Moderate Assistance-helper does LESS THAN HALF the effort. [place] lifts, holds or supports trunk or limbs, but provides less than half the effort. 2-Substantial/Maximal Assistance-helper does MORE THAN HALF the effort. [place] lifts or holds trunk or limbs and provides more than half the effort. 2-Yahravzzh-hcwlni does ALL the effort. Patient does none of the effort to complete the activity. Or, the assistance of 2 or more helpers is required for the patient to complete the activity. If activity was not attempted, code reason: 7-Patient Refused. 9-Not Applicable-not attempted and the patient did not perform the activity before the current illness, exacerbation or injury. 10-Not Attempted due to Environmental Limitations-(lack of equipment, weather restraints, etc.). 88-Not Attempted due to Medical Conditions or Safety Concerns. Roll Left to Right (QC): 4 Sit to Lying (QC): 2 Sit to Stand (QC): 3 Chair/Ojq-is-Siije Xfer(QC): 3 Car Transfer (QC): 2 Gait Training Does the Patient Walk?: No and Walking Goal IS indicated Walk 10 feet (QC): 88 Walk 50 ft with 2 Turns(QC): 88 Walk 150 ft (QC): 88 Walking 10ft/uneven surface-QC: 88 Wheelchair Training Does the Pt Use a Wheelchair?: Yes Wheel 50 ft with 2 turns (QC): 4 Wheel 150 ft (QC): 4 Type of Wheelchair: Manual Stair Training 1 Step (curb) (QC): 88 4 Steps (QC): 88 12 Steps (QC): 88 Balance Picking up an Object (QC): 88 ADL-Treatment Eating (QC): 6 Oral Hygiene (QC): 5 (s/u EOB) Bathing Location: L Arm, R Arm, L Upper Leg, R Upper Leg, Chest, Abdomen, Buttocks, Perineal Area Shower/Bathe Self (QC): 4 (SBA-SUP while on sc. Completes all areas (excluding B feet)) Upper Body Dressing (QC): 5 (s/u gown.) Lower Body Dressing (QC): 1 (TD due to mod A x2 for sit to stand and manipulation) On/Off Footwear (QC): 2 (max A don/ doffing.) Toileting Hygiene (QC): 4 (SBA/ cues for continuation. ) Toilet Transfer (QC): 1 (mod A x2) Assessment/Plan Assessment and Plan Assess & Plan/Chief Complaint Assessment: Myopathy COVID-19 PNA Urinary retention Valdes cath in place Bowel incontinence Hypoxia O2 dependent BPH Frail Advanced age Plan: IRF protocol but 120 minutes per day to accommodate hypoxia at activity [place] meds Melatonin at night 11/21/20: s/o IVF Monitor hypotension and hypoxia Appreciate Dr Cisneros ECHO done Add Remeron for sleep with Melatonin 11/22/20: No possibility of weaning O2 for now with this patient so needs on 21/06 and will update RT Increase activity 11/23/20: Maintain O2 Nebs Monitor BP 11/24/20: Venofer Labs and ABG and CT chest in am Dr Schrader consultation Maintain O2 Very fragile lungs 11/25/20: CT chest ABG Dr Schrader consultation 11/26/20: Dr Schrader appreciated Dr Marsh appreciated 11/27/20: Dr Marsh appreciated Monitor O2 11/28/20: Valdes cath in place Midline Venofer 11/29/20: Midline flushes Venofer Monitor closely Dramatic improvement 11/30/20: Dramatic improvement continues Monitor closely Increase O2 with therapy 12/01/20: Bowel incontinence could complicate DC plans Monitor urinary retention closely 12/02/20: Manage B/B incontinence Improved status Labs good (1) Myopathy (2) COVID-19 (3) Hypoxia (4) Urinary retention (5) Valdes catheter in place (6) BPH (benign prostatic hyperplasia) (7) Bowel incontinence (8) Supplemental oxygen dependent (9) Advanced age (10) Frailty BARB COLLINS DO Dec 02, 2020 09:11
[2020-12-02] MEDS: FINASTERIDE (PROSCAR) 5 MG TAB PO SCH (09:17)
[2020-12-02] MEDS: APIXABAN 5 MG (ELIQUIS) TABLET PO SCH ×2 (09:17→20:47)
[2020-12-02] MEDS: IRON SUCROSE 200 MG/10 ML (VENOFER) VIAL IV SCH (09:17)
[2020-12-02] MEDS: LORATADINE (CLARITIN) 10 MG TAB PO SCH (09:17)
[2020-12-02] MEDS: MONTELUKAST 10 MG (SINGULAIR) TAB PO SCH ×2 (09:18→18:26)
[2020-12-02] MEDS: PANTOPRAZOLE 40 MG (PROTONIX) TAB PO SCH (09:18)
[2020-12-02] MEDS: FOLIC ACID 1 MG TAB PO SCH (09:18)
[2020-12-02] MEDS: TAMSULOSIN 0.4 MG (FLOMAX) CAP PO SCH ×2 (09:18→20:47)
[2020-12-02] MEDS: meTOprolol TARTRATE 25 MG (LOPRESSOR) TABLET PO SCH ×2 (09:19→20:47)
[2020-12-02] MEDS: ROFLUMILAST 500 MCG TAB (DALIRESP) NG SCH (09:19)
[2020-12-02] MEDS: CYANOCOBALAMIN 1,000 MCG (VITAMIN B-12) TABLET NG SCH (09:19)
[2020-12-02] MEDS: LACTOBACILLUS ACIDOPHILUS (PROBIOTIC) CAPSULE PO SCH ×2 (09:19→20:47)
[2020-12-02] MEDS: SOD CHL GEL 0.5 OZ (AYR SALINE NASAL GEL) TUBE TOP PRN (09:39)
[2020-12-02] MEDS: MICONAZOLE 2% POWDER (DESENEX AF) 90 GM TOP SCH ×2 (09:39→20:48)
[2020-12-02] MEDS: DOCUSATE SODIUM 100 MG (COLACE) CAP PO SCH ×2 (09:43→20:45)
[2020-12-02] MEDS: polyethylene glycoL POWDER 17 GM (MIRALAX) PACK PO SCH ×2 (09:43→20:45)
[2020-12-02] MEDS: SENNA W/DOCUSATE (SENOKOT S) TABLET PO SCH ×2 (09:43→20:45)
--- NOTE | 2020-12-02 09:55 | Progress Note - Urology ---
Progress Note-Urology Progress Notes/Assess & Plan Progress/Assessment & Plan TOV TODAY Final Diagnosis RETENTION DENTON MA MD Dec 02, 2020 09:55
[2020-12-02] MEDS: NYSTATIN CREAM (MYCOSTATIN) 30 GM TUBE TP SCH ×3 (10:01→20:48)
--- NOTE | 2020-12-02 10:03 | Physical Therapy Daily Note ---
PT Daily Note-Current Subjective Pt. in bed, agrees to Rx, but states he feels he has had a BM and will need cleaned up 1st. Pt.states he has been waiting to call nursing until he thinks he might be finished with a BM instead of when he has 1st inkling of need to go. This PENS AND PENCILS REPAIRER educated pt. to call at 1st note of possible BM and the risks involved with skin break down etc. Pt. motivated and wants to sit in bathroom for teethbrushing and partial seated bath at sink. Pain Location: No Pain Reported Mental Status Patient Orientation: Normal For Age Attachments: Oxygen, Mejia Catheter Transfers SCALE: Activities may be completed with or without assistive devices. 3-Bzbvpptgkd-djeruku completes the activity by him/herself with no assistance from a helper. 5-Set-up or Clean-up Assistance-helper sets up or cleans up; patient completes activity. [place] assists only prior to or following the activity. 4-Supervision or Touching Assistance-helper provides verbal cues and/or touching/steadying and/or contact guard assistance as patient completes activity. Assistance may be provided throughout the activity or intermittently. 3-Partial/Moderate Assistance-helper does LESS THAN HALF the effort. [place] lifts, holds or supports trunk or limbs, but provides less than half the effort. 2-Substantial/Maximal Assistance-helper does MORE THAN HALF the effort. [place] lifts or holds trunk or limbs and provides more than half the effort. 8-Xoqsflhxp-hjcgci does ALL the effort. Patient does none of the effort to complete the activity. Or, the assistance of 2 or more helpers is required for the patient to complete the activity. If activity was not attempted, code reason: 7-Patient Refused. 9-Not Applicable-not attempted and the patient did not perform the activity before the current illness, exacerbation or injury. 10-Not Attempted due to Environmental Limitations-(lack of equipment, weather restraints, etc.). 88-Not Attempted due to Medical Conditions or Safety Concerns. Roll Left & Right (QC): 5 Lying to Sitting/Side of Bed(Q: 4 Sit to Stand (QC): 3 Chair/Kqa-mm-Ziraw Xfer(QC): 3 Toilet Transfer (QC): 3 pt. TRFd sup to side to sit with bed flat min assist, sat EOB for medication , then stood with mod assist Co Rx PT OT and in dance fashion TRFd SPT bed to BSC, recliner to w/c, w/c to recliner focusing on increased alignment and stance stability. stood multiple times mod assist for clean up and ointment application then TRFd to recliner at 90 degree angle with mod assist of both skilled clinicians. Pt. fatigues and needs mod plus assist for TRF . Upon stance pts feet slipping forward and he needs assist to stablilize them as well. Increased seat height helps with TRF, nursing using sit to stand lift with good success per pt. Weight Bearing Full Weight Bearing Full Weight Bearing Wheelchair Training Does the Pt Use a Wheelchair?: Yes Type of Wheelchair: Manual 25 ft x 2 to bthrm and back managing tight turns with assist, needs cues to brake Exercises Supine Ex: Bridging, Ankle pumps, Quad Set, Rolling, Glut sets, Heel Slides, Scooting, Straight leg raise, Hip abd/add Supine Reps: 15 Seated Therapy Exercises: Ankle pumps, Sit to stand Seated Reps: 10 Treatments PT OT co Rx as pts level of complexity requires assist of 2 skilled clinicians Assessment Current Status: Good Progress pt.conts to to fatigue very easily but gives full effort and is making slow progress PT Short Term Goals Short Term Goals Time Frame: Nov 27, 2020 Roll Left & Right: 3 Sit to lyin Lying to sitting on side of be: 3 Sit to stand: 3 Chair/olz-da-cqimj transfer: 3 Walk 10 feet: 3 PT Package Line Operator Goals Care Home Goals PT Care Home Goals Time Frame: Dec 11, 2020 Roll Left & Right (QC): 4 Sit to Lying (QC): 4 Lying-Sitting on Side/Bed(QC): 4 Sit to Stand (QC): 4 Chair/Swy-lq-Misoq Xfer(QC): 4 Toilet Transfer (QC): 4 Car Transfer (QC): 3 Does the Patient Walk: Yes Walk 10 feet (QC): 3 Walk 50ft with 2 Turns (QC): 3 Walk 150 ft (QC): 88 Walking 10ft on Uneven Surface: 3 1 Step (curb) (QC): 3 4 Steps (QC): 88 12 Steps (QC): 88 Picking up an Object (QC): 88 Wheel 50 feet with 2 turns (QC: 6 Wheel 150 feet: 6 PT Plan Treatment/Plan Treatment Plan: Continue Plan of Care Treatment Plan: Bed Mobility, Education, Functional Activity Leti, Functional Strength, Group Therapy, Gait, Safety, Therapeutic Exercise, Transfers Treatment Duration: Dec 11, 2020 Frequency: Modified Program (IRF) Estimated Hrs Per Day: 1 hour per day Patient and/or Family Agrees t: Yes Safety Risks/Education Patient Education: Transfer Techniques, Correct Positioning, W/C Management, Disease Process, Safety Issues Teaching Recipient: Patient Teaching Methods: Demonstration, Discussion Response to Teaching: Verbalize Understanding, Return Demonstration, Reinforcement Needed Time/GCodes Time In: 930 (1100) Time Out: 1000 (1145) Total Billed Treatment Time: 75 Total Billed Treatment 1,FA60,EX15 (75 m Co Rx w OT) ESSENCE ARRIAZA PENS AND PENCILS REPAIRER Dec 02, 2020 10:03
--- NOTE | 2020-12-02 11:00 | Occupational Ther Daily Note ---
OT Current Status-Daily Note Subjective Pt alert, lying in bed. Pt agrees to therapy. No c/o pain at this time. Mental Status/Objective Patient Orientation: Person, Place, Time, Situation Attachments: Mejia Catheter, IV, Oxygen ADL-Treatment Co-treat with PT ([id number]), skills of 2 clinicians required due to increased SOA, decreased activity tolerance and need of skilled instruction and care for all mobility. PT focusing on mobility and transfers while OT focused on ADLs and hand placement during mobility. Pt stated that he defecated in bed. Pt rolled side to side and only had released gas. While pt completed lower body strengthening, pt began to defecate. Min A for rolling to side and pushing to sit EOB. Pt sat EOB with CGA. Max A x2 for SPT to BSC then to recliner. Pt required assist to cleanse while assist to stand then sat back down onto BSC before SPT. Assist x2 for SPT to recliner. After therapy pt sitting in recliner with call light/phone in reach. All needs met in room. Therapy Code Descriptions/Definitions Functional [place] Measure: 0=Not Assessed/NA 4=Minimal Assistance 1=Total Assistance 5=Supervision or Setup 2=Maximal Assistance 6=Modified [place] 3=Moderate Assistance 7=Complete IndependenceSCALE: Activities may be completed with or without assistive devices. 7-Kxwjxmeetc-cgxbkjv completes the activity by him/herself with no assistance from a helper. 5-Set-up or Clean-up Assistance-helper sets up or cleans up; patient completes activity. [place] assists only prior to or following the activity. 4-Supervision or Touching Assistance-helper provides verbal cues and/or touching/steadying and/or contact guard assistance as patient completes ac tivity. Assistance may be provided throughout the activity or intermittently. 3-Partial/Moderate Assistance-helper does LESS THAN HALF the effort. [place] lifts, holds or supports trunk or limbs, but provides less than half the effort. 2-Substantial/Maximal Assistance-helper does MORE THAN HALF the effort. [place] lifts or holds trunk or limbs and provides more than half the effort. 9-Iwggjftjq-mmguvy does ALL the effort. Patient does none of the effort to complete the activity. Or, the assistance of 2 or more helpers is required for the patient to complete the activity. If activity was not attempted, code reason: 7-Patient Refused. 9-Not Applicable-not attempted and the patient did not perform the activity before the current illness, exacerbation or injury. 10-Not Attempted due to Environmental Limitations-(lack of equipment, weather restraints, etc.). 88-Not Attempted due to Medical Conditions or Safety Concerns. Oral Hygiene (QC): 6 Upper Body Dressing (QC): 5 Lower Body Dressing (QC): 1 On/Off Footwear: 1 Toileting Hygiene (QC): 1 Toilet Transfer (QC): 1 Other Treatment 2nd session ([id number]) Co-treat with PT ([id number]), skills of 2 clinicians required for skilled care and instruction due to pt's increased weakness and debility, decreased mobility and dependent transfers. Pt agrees to complete grooming and upper body bathing sitting at sink. Assist x2 for SPT from recliner to w/c and back. Pt able to sit in w/c at sink to complete grooming and oral care by self. Pt takes increased time to complete all tasks due to multiple lengthy recovery breaks. Pt able to sit and bring LE's up with feet elevated in recliner to apply lotion to B LE's. After session, pt sitting in recliner with call light/phone in reach. All needs met in room. OT Short Term Goals Short Term Goals Time Frame: Dec 11, 2020 Shower/bathe self: 4 Upper body dressin Lower body dressin OT Corporate Administrative Assistant Goals Snf Goals Time Frame: Dec 20, 2020 Eating (QC): 6 Oral Hygiene (QC): 6 Toileting Hygiene (QC): 6 Shower/Bathe Self (QC): 6 Upper Body Dressing (QC): 6 Lower Body Dressing (QC): 6 On/Off Footwear (QC): 6 Additional Goals: 1-Demonstrate ADL Tasks, 2-Verbalize Understanding, 3- ImproveStrength/Leti 1=Demonstrate adherence to instructed precautions during ADL tasks. 2=Patient will verbalize/demonstrate understanding of assistive devices/modifications for ADL. 3=Patient will improve strength/tolerance for activity to enable patient to perform ADL's. OT Education/Plan Problem List/Assessment Assessment: Decreased Activ Tolerance, Decreased UE Strength, Dependent Transfers, Impaired Coordination, Impaired Funct Balance, Impaired Self-Care Skills Discharge Recommendations Plan/Recommendations: Continue POC Treatment Plan/Plan of Care Patient would benefit from OT for education, treatment and training to promote independence in ADL's, mobility, safety and/or upper extremity function for ADL's. Plan of Care: ADL Retraining, Functional Mobility, Group Exercise/Act as Ind, UE Funct Exercise/Act Treatment Duration: Dec 20, 2020 Frequency: Modified Program (IRF) Estimated Hrs Per Day: 1 hour per day Rehab Potential: Fair Time/GCodes Start Time: 09:30 ([id number]) Stop Time: 11:45 ([id number]) Total Time Billed (hr/min): 75 Billed Treatment Time 2 visits-ADL 3 (45 min) FA 2 (30 min) co-treat with PT [id number] VIOLET BACA Dec 02, 2020 11:00
[2020-12-02 16:20] VITALS: BP 110/71
--- NOTE | 2020-12-02 17:51 | NUR ---
"RD ASSESSMENT PMHx: afib; BPH; HTN; hypercholesterolemia; PT INTERACTION: Pt was awake and pleasant during nutrition follow-up. Pt states he has been eating well since last assessment. Note avg PO intake 75% x4d, per chart review. Pt states no issues with nausea, vomiting, constipation, or diarrhea since last assessment. Note last BM was 12/02, and pt currently on bowel regimen colace BID, senna BID, and miralax BID, per chart review. Est. kcal needs: 0063-0292 kcal | 25-30 kcal/kg Est. Pro needs: 64-80 g Pro | 0.8-1.0 g Pro/kg PES STATEMENT: Given current PO intake, no nutrition diagnosis at this time (NO-1.1). INTERVENTION: Continue with current diet order of Regular diet. Will continue to follow and reassess as pt needs, intake, and status change. Carlos SIMMONS, MS RD LD [phone] cell"
[2020-12-02] MEDS: MIRTAZAPINE 15 MG (REMERON) TAB PO SCH (20:47)
[2020-12-02] MEDS: MELATONIN 10 MG TABLET PO SCH (20:47)
[2020-12-02] MEDS: ALPRAZolam 0.25 MG (XANAX) TAB PO PRN (21:45)
[2020-12-02] MEDS ORDERED: LIDOCAINE UROJET 2% GEL 10 ML PKG ONE (23:03)
--- NOTE | 2020-12-02 23:40 | NUR ---
timeline note. 2230 pt c/o need to void, helped with placing urinal. 2245 unable to void, pt states uncomfortable. attempted to find bladder scanner. one in covid room, not accessible, attempted to notify transportation supervisor of need for bladder scan. no answer to call. 2300. pt c/o pressure and pain. pt asking if could be cathed without scanning. due to patient in pain and scanner unavailable. 2325 pt straight cathed and 650 ml drained.
[2020-12-03] MEDS ORDERED: LIDOCAINE UROJET 2% GEL 10 ML PKG ONE ×2 (05:41→11:36)
[2020-12-03 05:42] VITALS: BP 105/64
[2020-12-03] MEDS: predniSONE 10 MG TAB PO SCH (06:26)
[2020-12-03] MEDS: CATHETER FLUSH 10 ML SYR IV SCH ×3 (06:27→22:12)
--- NOTE | 2020-12-03 08:55 | PM&R Progress Note ---
Subjective HPI/CC On Admission Date Seen by Provider: Dec 03, 2020 Time Seen by Provider: 08:30 Subjective/Events-last exam 12/03/20: Discontinued catheter yesterday by Dr. 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 Up in chair today BM++ Good outlook O2 at 3L/min Increase O2 during therapies 11/29/20: No new issues Midline was placed now flushes maintained Much improved status Down to 1 L of oxygen Increased oxygen requirement with exercise Still with Valdes catheter in place Upright in wheelchair today Dramatic improvement 11/28/20: Slept a bit better Midline for Venofer will be placed Much improved status BSC today Valdes cath replaced 11/27/20: Pt remains on 1 liter per minute of oxygen Appears to be much improved today Cystoscope done today showing large prostate Proscar along with Flomax was initiated Cath was done and obtained 1000cc of urine Nystatin cream and powder will be initiated Overall much improved 11/26/20: Pt did not sleep last night due to urinary frequency Had to do straight in and out cath x4 last night Dr. Marsh will be updated Blood in the urine 1 liter of O2 now but will need a higher level when he is working out CT chest and ABG reviewed 11/25/20: ABG is pending from not being drawn yet CT of the chest will be performed, Dr. Schrader has been updated Bowels moved yesterday 11/24/20: Venofer IV started and I explained why I started that for him Will check CT scan of chest tomorrow and consult Dr Schrader Labs and ABG ordered as well Still very tachypneic with conversation and at rest Monitoring BP 2L/min 11/23/20: No orthostasis today Worked with PT OT BM++ O2 maintained 11/22/20: Hgb 8.6 today Feels better since IVF 500cc yesterday and changed cardiac meds by Dr Cisneros Justice guevara was born and he is thrilled about that Valdes cath still in place Fecal incontinence noted RT left him without O2 since he was good BRIEFLY on room air after Nebs for 1 hour and spot checked and he was at 85% and he was very short of breath just resting 11/21/20: Had episode of hypotension 76/40 with symptoms when got to edge of bed so laid back down, Cardiology notified and given 500cc of IVF Patient is on a waiver due to COVID and hypoxia for slow therapy and only 120 minutes per day Cardizem CD 120mg now after changed by Dr Cisneros ECHO done Stopped Lasix Valdes cath remains in place Review of Systems General: Fatigue, Malaise Objective Exam Vital Signs Vital Signs Date Time Temp Pulse Resp B/P (MAP) Pulse Ox O2 Delivery O2 Flow Rate FiO2 12/03/20 21:59 97 Nasal Cannula 3.00 12/03/20 16:45 37.3 89 16 104/73 (83) Capillary Refill : Less Than 3 Seconds General Appearance: No Apparent Distress, WD/WN, Chronically ill, Thin HEENT: PERRL/EOMI, Normal ENT Inspection, Pharynx Normal Neck: Full Range of Motion, Normal Inspection, Non Tender, Supple, Carotid Bruit Respiratory: Chest Non Tender, Lungs Clear, No Respiratory Distress, Accessory Muscle Use, Decreased Breath Sounds Cardiovascular: Regular Rate, Rhythm, No Edema, No Gallop, No JVD, No Murmur, Normal Peripheral Pulses Gastrointestinal: Normal Bowel Sounds, No Organomegaly, No Pulsatile Mass, Non Tender, Soft Back: Normal Inspection, No CVA Tenderness, No Vertebral Tenderness Extremity: Normal Capillary Refill, Normal Inspection, Normal Range of Motion, Non Tender, No Calf Tenderness, No Pedal Edema Neurologic/Psychiatric: Alert, Oriented x3, No Motor/Sensory Deficits, Normal Mood/Affect, Motor Weakness (generalized 2/5 lower extremities, 3/5 upper extremities) Skin: Normal Color, Warm/Dry Lymphatic: No Adenopathy Results/Procedures Lab Patient resulted labs reviewed. FIM Transfers Therapy Code Descriptions/Definitions Functional [place] Measure: 0=Not Assessed/NA 4=Minimal Assistance 1=Total Assistance 5=Supervision or Setup 2=Maximal Assistance 6=Modified [place] 3=Moderate Assistance 7=Complete IndependenceSCALE: Activities may be completed with or without assistive devices. 2-Zvxqzfagdo-jnuptho completes the activity by him/herself with no assistance from a helper. 5-Set-up or Clean-up Assistance-helper sets up or cleans up; patient completes activity. [place] assists only prior to or following the activity. 4-Supervision or Touching Assistance-helper provides verbal cues and/or touching/steadying and/or contact guard assistance as patient completes activity. Assistance may be provided throughout the activity or intermittently. 3-Partial/Moderate Assistance-helper does LESS THAN HALF the effort. [place] lifts, holds or supports trunk or limbs, but provides less than half the effort. 2-Substantial/Maximal Assistance-helper does MORE THAN HALF the effort. [place] lifts or holds trunk or limbs and provides more than half the effort. 6-Tulespvob-owsjpp does ALL the effort. Patient does none of the effort to complete the activity. Or, the assistance of 2 or more helpers is required for the patient to complete the activity. If activity was not attempted, code reason: 7-Patient Refused. 9-Not Applicable-not attempted and the patient did not perform the activity before the current illness, exacerbation or injury. 10-Not Attempted due to Environmental Limitations-(lack of equipment, weather restraints, etc.). 88-Not Attempted due to Medical Conditions or Safety Concerns. Roll Left to Right (QC): 5 Sit to Lying (QC): 2 Sit to Stand (QC): 3 Chair/Uyu-zv-Oscso Xfer(QC): 3 Car Transfer (QC): 2 Gait Training Does the Patient Walk?: No and Walking Goal IS indicated Walk 10 feet (QC): 88 Walk 50 ft with 2 Turns(QC): 88 Walk 150 ft (QC): 88 Walking 10ft/uneven surface-QC: 88 Wheelchair Training Does the Pt Use a Wheelchair?: Yes Wheel 50 ft with 2 turns (QC): 4 Wheel 150 ft (QC): 4 Type of Wheelchair: Manual Stair Training 1 Step (curb) (QC): 88 4 Steps (QC): 88 12 Steps (QC): 88 Balance Picking up an Object (QC): 88 ADL-Treatment Eating (QC): 6 Oral Hygiene (QC): 6 Bathing Location: L Arm, R Arm, L Upper Leg, R Upper Leg, Chest, Abdomen, Buttocks, Perineal Area Shower/Bathe Self (QC): 4 (SBA-SUP while on sc. Completes all areas (excluding B feet)) Upper Body Dressing (QC): 5 Lower Body Dressing (QC): 1 On/Off Footwear (QC): 1 Toileting Hygiene (QC): 1 Toilet Transfer (QC): 1 Assessment/Plan Assessment and Plan Assess & Plan/Chief Complaint Assessment: Myopathy COVID-19 PNA Urinary retention Valdes cath in place Bowel incontinence Hypoxia O2 dependent BPH Frail Advanced age Plan: IRF protocol but 120 minutes per day to accommodate hypoxia at activity [place] meds Melatonin at night 11/21/20: s/o IVF Monitor hypotension and hypoxia Appreciate Dr Cisneros ECHO done Add Remeron for sleep with Melatonin 11/22/20: No possibility of weaning O2 for now with this patient so needs on 21/06 and will update RT Increase activity 11/23/20: Maintain O2 Nebs Monitor BP 11/24/20: Venofer Labs and ABG and CT chest in am Dr Schrader consultation Maintain O2 Very fragile lungs 11/25/20: CT chest ABG Dr Schrader consultation 11/26/20: Dr Schrader appreciated Dr Marsh appreciated 11/27/20: Dr Marsh appreciated Monitor O2 11/28/20: Valdes cath in place Midline Venofer 11/29/20: Midline flushes Venofer Monitor closely Dramatic improvement 11/30/20: Dramatic improvement continues Monitor closely Increase O2 with therapy 12/01/20: Bowel incontinence could complicate DC plans Monitor urinary retention closely 12/02/20: Manage B/B incontinence Improved status Labs good 12/03/20: Improved insomnia Continue treatment B/B incontinence (1) Myopathy (2) COVID-19 (3) Hypoxia (4) Urinary retention (5) Valdes catheter in place (6) BPH (benign prostatic hyperplasia) (7) Bowel incontinence (8) Supplemental oxygen dependent (9) Advanced age (10) Frailty BARB COLLINS DO Dec 03, 2020 08:55
--- NOTE | 2020-12-03 09:56 | Progress Note - Urology ---
Progress Note-Urology Progress Notes/Assess & Plan Progress/Assessment & Plan STILL UNABLE TO VOID. WE WILL REINSERT MCKE[place] AND PLAN TURP WHEN PHYSICALLY, MEDICALLY AND EMOTIONALLY READY PER DR COLLINS Final Diagnosis URINE RETENTION DENTON MA MD Dec 03, 2020 09:56
[2020-12-03] MEDS: ROFLUMILAST 500 MCG TAB (DALIRESP) NG SCH (10:15)
[2020-12-03] MEDS: MONTELUKAST 10 MG (SINGULAIR) TAB PO SCH (10:15)
[2020-12-03] MEDS: CYANOCOBALAMIN 1,000 MCG (VITAMIN B-12) TABLET NG SCH (10:15)
[2020-12-03] MEDS: FINASTERIDE (PROSCAR) 5 MG TAB PO SCH (10:15)
[2020-12-03] MEDS: APIXABAN 5 MG (ELIQUIS) TABLET PO SCH ×2 (10:15→22:12)
[2020-12-03] MEDS: TAMSULOSIN 0.4 MG (FLOMAX) CAP PO SCH ×2 (10:16→22:12)
[2020-12-03] MEDS: FOLIC ACID 1 MG TAB PO SCH (10:16)
[2020-12-03] MEDS: PANTOPRAZOLE 40 MG (PROTONIX) TAB PO SCH (10:16)
[2020-12-03] MEDS: meTOprolol TARTRATE 25 MG (LOPRESSOR) TABLET PO SCH ×2 (10:16→22:12)
[2020-12-03] MEDS: LACTOBACILLUS ACIDOPHILUS (PROBIOTIC) CAPSULE PO SCH ×2 (10:16→22:11)
[2020-12-03] MEDS: LORATADINE (CLARITIN) 10 MG TAB PO SCH (10:16)
[2020-12-03] MEDS: SOD CHL GEL 0.5 OZ (AYR SALINE NASAL GEL) TUBE TOP PRN (11:06)
[2020-12-03] MEDS: MICONAZOLE 2% POWDER (DESENEX AF) 90 GM TOP SCH ×2 (11:07→22:13)
[2020-12-03] MEDS: NYSTATIN CREAM (MYCOSTATIN) 30 GM TUBE TP SCH ×3 (11:07→22:14)
[2020-12-03] MEDS: polyethylene glycoL POWDER 17 GM (MIRALAX) PACK PO SCH ×2 (11:07→20:03)
[2020-12-03] MEDS: SENNA W/DOCUSATE (SENOKOT S) TABLET PO SCH ×2 (11:07→20:03)
[2020-12-03] MEDS: DOCUSATE SODIUM 100 MG (COLACE) CAP PO SCH ×2 (11:07→20:02)
--- NOTE | 2020-12-03 11:08 | Physical Therapy Daily Note ---
PT Daily Note-Current Subjective Pt is in bed upon arrival. Pt agrees to PT/OT for shower and is excited for improvements being made. Mental Status Patient Orientation: Person, Place Attachments: Oxygen, IV Transfers SCALE: Activities may be completed with or without assistive devices. 6-Auqvdegvwx-bqklczh completes the activity by him/herself with no assistance from a helper. 5-Set-up or Clean-up Assistance-helper sets up or cleans up; patient completes activity. [place] assists only prior to or following the activity. 4-Supervision or Touching Assistance-helper provides verbal cues and/or touching/steadying and/or contact guard assistance as patient completes activity. Assistance may be provided throughout the activity or intermittently. 3-Partial/Moderate Assistance-helper does LESS THAN HALF the effort. [place] lifts, holds or supports trunk or limbs, but provides less than half the effort. 2-Substantial/Maximal Assistance-helper does MORE THAN HALF the effort. [place] lifts or holds trunk or limbs and provides more than half the effort. 7-Dvuoiulpn-buiych does ALL the effort. Patient does none of the effort to complete the activity. Or, the assistance of 2 or more helpers is required for the patient to complete the activity. If activity was not attempted, code reason: 7-Patient Refused. 9-Not Applicable-not attempted and the patient did not perform the activity before the current illness, exacerbation or injury. 10-Not Attempted due to Environmental Limitations-(lack of equipment, weather restraints, etc.). 88-Not Attempted due to Medical Conditions or Safety Concerns. Roll Left & Right (QC): 5 Lying to Sitting/Side of Bed(Q: 4 Sit to Stand (QC): 3 Toilet Transfer (QC): 3 Weight Bearing Full Weight Bearing Full Weight Bearing Treatments Co-treat with PT ([id number]), skills of 2 clinicians required due to increased SOA, decreased activity tolerance and need of skilled instruction and care for all mobility. PT focusing on mobility and transfers while OT focused on ADLs and hand placement during mobility. Pt agrees to shower. Supine to sitting EOB, min A. Assist x2 for SPT to shower chair with cutout. Transported to shower with chair. Pt completes shower, needing assistance for back and bottom only. Pt instructed to use long handled sponge for feet. Pt continues to have BM in shower before OT assists with drying after shower. Pt brushes teeth at shower chair before donning new gown and socks. Pt TF using SPT to recliner. All needs met, call light in hand. Assessment Current Status: Good Progress Pt is improving with strength seen in improved/more independent TF. PT Short Term Goals Short Term Goals Time Frame: Nov 27, 2020 Roll Left & Right: 3 Sit to lyin Lying to sitting on side of be: 3 Sit to stand: 3 Chair/gar-vi-gmlxf transfer: 3 Walk 10 feet: 3 PT Rejector Goals Custodial Goals PT Rejector Goals Time Frame: Dec 11, 2020 Roll Left & Right (QC): 4 Sit to Lying (QC): 4 Lying-Sitting on Side/Bed(QC): 4 Sit to Stand (QC): 4 Chair/Pmh-mq-Ofwwi Xfer(QC): 4 Toilet Transfer (QC): 4 Car Transfer (QC): 3 Does the Patient Walk: Yes Walk 10 feet (QC): 3 Walk 50ft with 2 Turns (QC): 3 Walk 150 ft (QC): 88 Walking 10ft on Uneven Surface: 3 1 Step (curb) (QC): 3 4 Steps (QC): 88 12 Steps (QC): 88 Picking up an Object (QC): 88 Wheel 50 feet with 2 turns (QC: 6 Wheel 150 feet: 6 PT Plan Problem List Problem List: Activity Tolerance, Functional Strength, Safety, Balance, Transfer Treatment/Plan Treatment Plan: Continue Plan of Care Treatment Plan: Bed Mobility, Education, Functional Activity Leti, Functional Strength, Group Therapy, Gait, Safety, Therapeutic Exercise, Transfers Treatment Duration: Dec 11, 2020 Frequency: Modified Program (IRF) Estimated Hrs Per Day: 1 hour per day Patient and/or Family Agrees t: Yes Safety Risks/Education Patient Education: Transfer Techniques, Correct Positioning, Safety Issues Teaching Recipient: Patient Teaching Methods: Discussion Response to Teaching: Verbalize Understanding Time/GCodes Time In: 900 Time Out: 1000 Total Billed Treatment Time: 60 Total Billed Treatment 1, FA x4 (60m) Co-treat w/OT for 60m OLINDAKARYN TIPTON GALDINO Dec 03, 2020 11:08
--- NOTE | 2020-12-03 11:10 | Progress Note - Cardiology ---
Cardiology SOAP Progress Note Objective: I&O/Vital Signs 12/04/20 12/04/20 12/04/20 06:04 07:23 09:00 Temp 37.2 Pulse 89 Resp 20 B/P (MAP) 93/51 (65) Pulse Ox 97 92 O2 Delivery Nasal Cannula Nasal Cannula Nasal Cannula O2 Flow Rate 3.00 2.00 2.00 12/04/20 00:00 Intake Total 980 ml Output Total 800 ml Balance 180 ml Constitutional: AAO x 3, well-developed, well-nourished Respiratory: No accessory muscle use; other (good bilat air entry, somewhat diminished at the bases) Cardiovascular: irregularly irregular, S1 and S2, systolic murmur (2/6 SHERMAN at card base) Gastrointestional: No tender; soft; No guarding, No rebound; audible bowel sounds Extremities: No clubbing, No cyanosis, No significant edema Neurologic/Psychiatric: oriented x 3, other (moves all limbs) Skin: No rash on exposed areas, No ulcerations on exposed areas Results/Procedures: Labs Microbiology 12/03/20 Gram Stain - Final, Resulted 12/03/20 Sputum Culture - Preliminary, Resulted Gram Negative Adrián Staphylococcus aureus Usual upper respiratory bravo A/P: Assessment: PAF, currently NSR S/p ac resp failure due to COVID-19 in early 2019 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 Diuretics stopped on 11/21/20. Sildenafil reduced on 11/23/20 and stopped on 11/25/20 Plan: * Continue current regiment * Monitor labs from time to time GORDY CURRY Dec 03, 2020 11:10
--- NOTE | 2020-12-03 11:23 | Occupational Ther Daily Note ---
OT Current Status-Daily Note Subjective Pt alert, lying in bed. Pt agrees to therapy. No c/o pain at this time. Mental Status/Objective Patient Orientation: Person, Place, Time, Situation Attachments: IV (midline), Oxygen (1L) ADL-Treatment 1st vxmldmh-Gf-beowo with PT ([id number]), skills of 2 clinicians required due to increased SOA, decreased activity tolerance and need of skilled instruction and care for all mobility. PT focusing on mobility and transfers while OT focused on ADLs and hand placement during mobility. Pt agrees to shower. Supine to sitting EOB, min A. Assist x2 for SPT to shower chair with cutout. Transported to shower with chair. Pt completed shower after setup using hand held shower, grabbars, shower chair and long handle sponge. Pt able to reach all areas except buttocks. Pt takes increased time due to increased SOA and O2 levels. Assist x2 to transfer from shower chair to recliner. After session, pt sitting in recliner with call light/phone in reach. All needs met in room. 2nd session-Pt is able to scoot forward and backward in chair, independently. Using sit to stand lift, pt transferred from recliner to bed. While standing in lift, pt able to activate muscles to stand upright with assist of lift for 1 min. Pt sat EOB independently for 3 min. Pt able to go from EOB to supine by self with effort. After session, pt lying in bed with call light/phone in reach. Nrsg in room. All needs met in room. Therapy Code Descriptions/Definitions Functional [place] Measure: 0=Not Assessed/NA 4=Minimal Assistance 1=Total Assistance 5=Supervision or Setup 2=Maximal Assistance 6=Modified [place] 3=Moderate Assistance 7=Complete IndependenceSCALE: Activities may be completed with or without assistive devices. 5-Hndzxwlmhg-csqdumc completes the activity by him/herself with no assistance from a helper. 5-Set-up or Clean-up Assistance-helper sets up or cleans up; patient completes activity. [place] assists only prior to or following the activity. 4-Supervision or Touching Assistance-helper provides verbal cues and/or touchi ng/steadying and/or contact guard assistance as patient completes activity. Assistance may be provided throughout the activity or intermittently. 3-Partial/Moderate Assistance-helper does LESS THAN HALF the effort. [place] lifts, holds or supports trunk or limbs, but provides less than half the effort. 2-Substantial/Maximal Assistance-helper does MORE THAN HALF the effort. [place] lifts or holds trunk or limbs and provides more than half the effort. 3-Ulvfepmvy-ewoxtp does ALL the effort. Patient does none of the effort to complete the activity. Or, the assistance of 2 or more helpers is required for the patient to complete the activity. If activity was not attempted, code reason: 7-Patient Refused. 9-Not Applicable-not attempted and the patient did not perform the activity before the current illness, exacerbation or injury. 10-Not Attempted due to Environmental Limitations-(lack of equipment, weather restraints, etc.). 88-Not Attempted due to Medical Conditions or Safety Concerns. Oral Hygiene (QC): 6 (Sitting at sink to complete independently.) Shower/Bathe Self (QC): 3 On/Off Footwear: 2 (Assist to cross leg over knee then pt able to doff socks. Assist to don socks.) Toileting Hygiene (QC): 1 Toilet Transfer (QC): 1 OT Short Term Goals Short Term Goals Time Frame: Dec 11, 2020 Shower/bathe self: 4 Upper body dressin Lower body dressin OT Predatory Animal Exterminator Goals Predatory Animal Exterminator Goals Time Frame: Dec 20, 2020 Eating (QC): 6 Oral Hygiene (QC): 6 Toileting Hygiene (QC): 6 Shower/Bathe Self (QC): 6 Upper Body Dressing (QC): 6 Lower Body Dressing (QC): 6 On/Off Footwear (QC): 6 Additional Goals: 1-Demonstrate ADL Tasks, 2-Verbalize Understanding, 3- ImproveStrength/Leti 1=Demonstrate adherence to instructed precautions during ADL tasks. 2=Patient will verbalize/demonstrate understanding of assistive devices/modifications for ADL. 3=Patient will improve strength/tolerance for activity to enable patient to perform ADL's. OT Education/Plan Problem List/Assessment Assessment: Decreased Activ Tolerance, Decreased UE Strength, Dependent Transfers, Impaired Funct Balance, Impaired Self-Care Skills Discharge Recommendations Plan/Recommendations: Continue POC Treatment Plan/Plan of Care Patient would benefit from OT for education, treatment and training to promote independence in ADL's, mobility, safety and/or upper extremity function for ADL's. Plan of Care: ADL Retraining, Functional Mobility, Group Exercise/Act as Ind, UE Funct Exercise/Act Treatment Duration: Dec 20, 2020 Frequency: Modified Program (IRF) Estimated Hrs Per Day: 1 hour per day Rehab Potential: Fair Time/GCodes Start Time: 09:00 ([id number]) Stop Time: 12:00 ([id number]) Total Time Billed (hr/min): 90 Billed Treatment Time 2 visits-ADL 6 (90 min) cotreat with PT [id number], individual [id number] VIOLET BACA Dec 03, 2020 11:23
--- NOTE | 2020-12-03 14:07 | NUR ---
REACHED OUT TO REGISTERED RESPIRATORY THERAPIST, FERMIN THIS AM, REGARDING ISOLATION. SHE REPORTS THAT PT WILL NEED 2 NEGATIVE SPUTUM CULTURES, 72 HOURS APART, & NOT ON ANTIBIOTICS TO D/C ISOLATION. NOTIFIED PT OF THIS, & PROVIDED INSTRUCTIONS REGARDING OBTAINING SPUTUM, & NOTIFYING STAFF. PT VERBALIZED UNDERSTANDING.
[2020-12-03 16:45] VITALS: BP 104/73
[2020-12-03] MEDS: guaiFENesin/CODEINE (ROBITUSSIN AC) 10ML UDC PO PRN (18:20)
[2020-12-03] MEDS: RT-ALBUTEROL/IPRATROPIUM 3 ML (DUONEB) VIAL IH SCH (21:57)
[2020-12-03] MEDS: ADVAIR HFA 115/21 MCG INHALER 8 GM IH SCH (21:58)
[2020-12-03] MEDS: MIRTAZAPINE 15 MG (REMERON) TAB PO SCH (22:11)
[2020-12-03] MEDS: MELATONIN 10 MG TABLET PO SCH (22:11)
[2020-12-03] MEDS: ALPRAZolam 0.25 MG (XANAX) TAB PO PRN (22:11)
[2020-12-04 06:04] VITALS: BP 93/51
[2020-12-04] MEDS: CATHETER FLUSH 10 ML SYR IV SCH ×3 (06:29→22:45)
[2020-12-04] MEDS: predniSONE 10 MG TAB PO SCH (06:29)
[2020-12-04] MEDS: RT-ALBUTEROL/IPRATROPIUM 3 ML (DUONEB) VIAL IH SCH (07:23)
[2020-12-04] MEDS: ADVAIR HFA 115/21 MCG INHALER 8 GM IH SCH ×2 (07:23→22:33)
--- NOTE | 2020-12-04 08:47 | PM&R Progress Note ---
Subjective HPI/CC On Admission Date Seen by Provider: Dec 04, 2020 Time Seen by Provider: 09:00 Subjective/Events-last exam 12/04/20: Pt slept very well again Coughing up a little bit more sputum that does show MRSA and ESBL, will remain in isolation Avldes is back in Will have TURP on Wednesday, holding Eliquis on Wednesday Incontinence of bowels is noted Overall extremely improved 12/03/20: Discontinued catheter yesterday by Dr. 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 Up in chair today BM++ Good outlook O2 at 3L/min Increase O2 during therapies 11/29/20: No new issues Midline was placed now flushes maintained Much improved status Down to 1 L of oxygen Increased oxygen requirement with exercise Still with Valdes catheter in place Upright in wheelchair today Dramatic improvement 11/28/20: Slept a bit better Midline for Venofer will be placed Much improved status BSC today Valdes cath replaced 11/27/20: Pt remains on 1 liter per minute of oxygen Appears to be much improved today Cystoscope done today showing large prostate Proscar along with Flomax was initiated Cath was done and obtained 1000cc of urine Nystatin cream and powder will be initiated Overall much improved 11/26/20: Pt did not sleep last night due to urinary frequency Had to do straight in and out cath x4 last night Dr. Marsh will be updated Blood in the urine 1 liter of O2 now but will need a higher level when he is working out CT chest and ABG reviewed 11/25/20: ABG is pending from not being drawn yet CT of the chest will be performed, Dr. Schrader has been updated Bowels moved yesterday 11/24/20: Venofer IV started and I explained why I started that for him Will check CT scan of chest tomorrow and consult Dr Schrader Labs and ABG ordered as well Still very tachypneic with conversation and at rest Monitoring BP 2L/min 11/23/20: No orthostasis today Worked with PT OT BM++ O2 maintained 11/22/20: Hgb 8.6 today Feels better since IVF 500cc yesterday and changed cardiac meds by Dr Cisneros Justice guevara was born and he is thrilled about that Valdes cath still in place Fecal incontinence noted RT left him without O2 since he was good BRIEFLY on room air after Nebs for 1 hour and spot checked and he was at 85% and he was very short of breath just resting 11/21/20: Had episode of hypotension 76/40 with symptoms when got to edge of bed so laid back down, Cardiology notified and given 500cc of IVF Patient is on a waiver due to COVID and hypoxia for slow therapy and only 120 minutes per day Cardizem CD 120mg now after changed by Dr Cisneros ECHO done Stopped Lasix Valdes cath remains in place Review of Systems General: Fatigue, Malaise Pulmonary: Dyspnea, Cough Genitourinary: Retention Neurological: Weakness, Incoordination Objective Exam Vital Signs Vital Signs Date Time Temp Pulse Resp B/P (MAP) Pulse Ox O2 Delivery O2 Flow Rate FiO2 12/04/20 20:15 98 Nasal Cannula 2.00 12/04/20 17:21 36.8 94 16 107/57 (74) Capillary Refill : Less Than 3 Seconds General Appearance: No Apparent Distress, WD/WN, Chronically ill, Thin HEENT: PERRL/EOMI, Normal ENT Inspection, Pharynx Normal Neck: Full Range of Motion, Normal Inspection, Non Tender, Supple, Carotid Bruit Respiratory: Chest Non Tender, Lungs Clear, No Respiratory Distress, Accessory Muscle Use, Decreased Breath Sounds Cardiovascular: Regular Rate, Rhythm, No Edema, No Gallop, No JVD, No Murmur, N ormal Peripheral Pulses Gastrointestinal: Normal Bowel Sounds, No Organomegaly, No Pulsatile Mass, Non Tender, Soft Back: Normal Inspection, No CVA Tenderness, No Vertebral Tenderness Extremity: Normal Capillary Refill, Normal Inspection, Normal Range of Motion, Non Tender, No Calf Tenderness, No Pedal Edema Neurologic/Psychiatric: Alert, Oriented x3, No Motor/Sensory Deficits, Normal Mood/Affect, Motor Weakness (generalized 2/5 lower extremities, 3/5 upper extremities) Skin: Normal Color, Warm/Dry Lymphatic: No Adenopathy Results/Procedures Lab Patient resulted labs reviewed. FIM Transfers Therapy Code Descriptions/Definitions Functional [place] Measure: 0=Not Assessed/NA 4=Minimal Assistance 1=Total Assistance 5=Supervision or Setup 2=Maximal Assistance 6=Modified [place] 3=Moderate Assistance 7=Complete IndependenceSCALE: Activities may be completed with or without assistive devices. 1-Odusrbogwd-rerjcyl completes the activity by him/herself with no assistance f rom a helper. 5-Set-up or Clean-up Assistance-helper sets up or cleans up; patient completes activity. [place] assists only prior to or following the activity. 4-Supervision or Touching Assistance-helper provides verbal cues and/or touching/steadying and/or contact guard assistance as patient completes activity. Assistance may be provided throughout the activity or intermittently. 3-Partial/Moderate Assistance-helper does LESS THAN HALF the effort. [place] lifts, holds or supports trunk or limbs, but provides less than half the effort. 2-Substantial/Maximal Assistance-helper does MORE THAN HALF the effort. [place] lifts or holds trunk or limbs and provides more than half the effort. 8-Vgmkdtbde-niholv does ALL the effort. Patient does none of the effort to complete the activity. Or, the assistance of 2 or more helpers is required for the patient to complete the activity. If activity was not attempted, code reason: 7-Patient Refused. 9-Not Applicable-not attempted and the patient did not perform the activity before the current illness, exacerbation or injury. 10-Not Attempted due to Environmental Limitations-(lack of equipment, weather restraints, etc.). 88-Not Attempted due to Medical Conditions or Safety Concerns. Roll Left to Right (QC): 5 Sit to Lying (QC): 2 Sit to Stand (QC): 3 Chair/Kel-px-Kzvvz Xfer(QC): 3 Car Transfer (QC): 2 Gait Training Does the Patient Walk?: No and Walking Goal IS indicated Walk 10 feet (QC): 88 Walk 50 ft with 2 Turns(QC): 88 Walk 150 ft (QC): 88 Walking 10ft/uneven surface-QC: 88 Wheelchair Training Does the Pt Use a Wheelchair?: Yes Wheel 50 ft with 2 turns (QC): 4 Wheel 150 ft (QC): 4 Type of Wheelchair: Manual Stair Training 1 Step (curb) (QC): 88 4 Steps (QC): 88 12 Steps (QC): 88 Balance Picking up an Object (QC): 88 ADL-Treatment Eating (QC): 6 Oral Hygiene (QC): 6 (Sitting at sink to complete independently.) Bathing Location: L Arm, R Arm, L Upper Leg, R Upper Leg, Chest, Abdomen, Buttocks, Perineal Area Shower/Bathe Self (QC): 3 Upper Body Dressing (QC): 5 Lower Body Dressing (QC): 1 On/Off Footwear (QC): 2 (Assist to cross leg over knee then pt able to doff socks. Assist to don socks.) Toileting Hygiene (QC): 1 Toilet Transfer (QC): 1 Assessment/Plan Assessment and Plan Assess & Plan/Chief Complaint Assessment: Myopathy COVID-19 PNA Urinary retention Valdes cath in place Bowel incontinence Hypoxia O2 dependent BPH Frail Advanced age Plan: IRF protocol but 120 minutes per day to accommodate hypoxia at activity Toad Hop meds Melatonin at night 11/21/20: s/o IVF Monitor hypotension and hypoxia Appreciate Dr Cisneros ECHO done Add Remeron for sleep with Melatonin 11/22/20: No possibility of weaning O2 for now with this patient so needs on 21/06 and will update RT Increase activity 11/23/20: Maintain O2 Nebs Monitor BP 11/24/20: Venofer Labs and ABG and CT chest in am Dr Schrader consultation Maintain O2 Very fragile lungs 11/25/20: CT chest ABG Dr Schrader consultation 11/26/20: Dr Schrader appreciated Dr Marsh appreciated 11/27/20: Dr Marsh appreciated Monitor O2 11/28/20: Valdes cath in place Midline Venofer 11/29/20: Midline flushes Venofer Monitor closely Dramatic improvement 11/30/20: Dramatic improvement continues Monitor closely Increase O2 with therapy 12/01/20: Bowel incontinence could complicate DC plans Monitor urinary retention closely 12/02/20: Manage B/B incontinence Improved status Labs good 12/03/20: Improved insomnia Continue treatment B/B incontinence 12/04/20: TURP next Wed Hold OAC as of Wednesday Conferred with Dr Marsh and patient (1) Myopathy (2) COVID-19 (3) Hypoxia (4) Urinary retention (5) Valdes catheter in place (6) BPH (benign prostatic hyperplasia) (7) Bowel incontinence (8) Supplemental oxygen dependent (9) Advanced age (10) Frailty BARB COLLINS DO Dec 04, 2020 08:47
[2020-12-04] MEDS: FOLIC ACID 1 MG TAB PO SCH (09:09)
[2020-12-04] MEDS: TAMSULOSIN 0.4 MG (FLOMAX) CAP PO SCH ×2 (09:10→22:42)
[2020-12-04] MEDS: ROFLUMILAST 500 MCG TAB (DALIRESP) NG SCH (09:10)
[2020-12-04] MEDS: CYANOCOBALAMIN 1,000 MCG (VITAMIN B-12) TABLET NG SCH (09:10)
[2020-12-04] MEDS: LORATADINE (CLARITIN) 10 MG TAB PO SCH (09:11)
[2020-12-04] MEDS: LACTOBACILLUS ACIDOPHILUS (PROBIOTIC) CAPSULE PO SCH ×2 (09:11→22:42)
[2020-12-04] MEDS: DOCUSATE SODIUM 100 MG (COLACE) CAP PO SCH ×2 (09:11→22:48)
[2020-12-04] MEDS: meTOprolol TARTRATE 25 MG (LOPRESSOR) TABLET PO SCH ×2 (09:11→22:42)
[2020-12-04] MEDS: MONTELUKAST 10 MG (SINGULAIR) TAB PO SCH (09:11)
[2020-12-04] MEDS: APIXABAN 5 MG (ELIQUIS) TABLET PO SCH ×2 (09:11→22:43)
[2020-12-04] MEDS: PANTOPRAZOLE 40 MG (PROTONIX) TAB PO SCH (09:11)
[2020-12-04] MEDS: FINASTERIDE (PROSCAR) 5 MG TAB PO SCH (09:11)
[2020-12-04] MEDS: polyethylene glycoL POWDER 17 GM (MIRALAX) PACK PO SCH ×2 (09:12→22:45)
[2020-12-04] MEDS: SENNA W/DOCUSATE (SENOKOT S) TABLET PO SCH ×2 (09:12→22:47)
[2020-12-04] MEDS: MICONAZOLE 2% POWDER (DESENEX AF) 90 GM TOP SCH ×2 (09:12→22:43)
[2020-12-04] MEDS: NYSTATIN CREAM (MYCOSTATIN) 30 GM TUBE TP SCH ×3 (09:13→22:44)
--- NOTE | 2020-12-04 10:50 | Progress Note - Cardiology ---
Cardiology SOAP Progress Note Subjective: No new c/o Objective: I&O/Vital Signs 12/13/20 12/13/20 12/13/20 12/13/20 05:59 08:00 09:15 09:26 Temp 37.2 Pulse 73 92 Resp 16 16 B/P (MAP) 95/58 (70) 95/60 (72) Pulse Ox 90 94 87 O2 Delivery Nasal Cannula Nasal Cannula Room Air Nasal Cannula O2 Flow Rate 2.00 2.00 2.00 12/13/20 00:00 Intake Total 840 ml Output Total 550 ml Balance 290 ml Constitutional: AAO x 3, well-developed, well-nourished Respiratory: No accessory muscle use; other (good bilat air entry, somewhat diminished at the bases) Cardiovascular: irregularly irregular, S1 and S2, systolic murmur (2/6 SHERMAN at card base) Gastrointestional: No tender; soft; No guarding, No rebound; audible bowel sounds Extremities: No clubbing, No cyanosis, No significant edema Neurologic/Psychiatric: oriented x 3, other (moves all limbs) Skin: No rash on exposed areas, No ulcerations on exposed areas Results/Procedures: Labs Laboratory Tests 12/13/20 06:50: White Blood Count 11.1H, Red Blood Count 3.22L, Hemoglobin 9.6L, Hematocrit 30L, Mean Corpuscular Volume 94, Mean Corpuscular Hemoglobin 30, Mean Corpuscular Hemoglobin Concent 32, Red Cell Distribution Width 16.7H, Platelet Count 247, Mean Platelet Volume 8.6L, Immature Granulocyte % (Auto) 3, Neutrophils (%) (Auto) 62, Lymphocytes (%) (Auto) 27, Monocytes (%) (Auto) 6, Eosinophils (%) (Auto) 1, Basophils (%) (Auto) 1, Neutrophils # (Auto) 6.9, Lymphocytes # (Auto) 3.0, Monocytes # (Auto) 0.7, Eosinophils # (Auto) 0.1, Basophils # (Auto) 0.1, Immature Granulocyte # (Auto) 0.4H, Sodium Level 136, Potassium Level 4.1, Chloride Level 105, Carbon Dioxide Level 23, Anion Gap 8, Blood Urea Nitrogen 18, Creatinine 0.65, Estimat Glomerular Filtration Rate > 60, BUN/Creatinine Ratio 28, Glucose Level 91, Calcium Level 8.5, Corrected Calcium 9.8, Total Bilirubin 0.3, Aspartate Amino Transf (AST/SGOT) 11, Alanine Aminotransferase (ALT/SGPT) 13, Alkaline Phosphatase 77, Total Protein 4.6L, Albumin 2.4L Microbiology 12/06/20 Gram Stain - Final, Complete 12/06/20 Sputum Culture - Final, Complete Usual upper respiratory bravo Staphylococcus aureus Probable E.coli A/P: Assessment: PAF, currently NSR S/p ac resp failure due to COVID-19 in early 2019 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 Diuretics stopped on 11/21/20. Sildenafil reduced on 11/23/20 and stopped on 11/25/20 Plan: * HR controlled * BP somewhat low, albeit asymptomatic, will reduce BB * Monitor labs from time to time GORDY CURRY Dec 04, 2020 10:50
--- NOTE | 2020-12-04 11:07 | Physical Therapy Daily Note ---
PT Daily Note-Current Subjective Pt laying Supine in bed upon arrival. Pt agrees to PT/OT co-treat. Mental Status Patient Orientation: Person, Place, Situation Attachments: Oxygen (2L) Transfers SCALE: Activities may be completed with or without assistive devices. 9-Qkhutygffn-obcaryt completes the activity by him/herself with no assistance from a helper. 5-Set-up or Clean-up Assistance-helper sets up or cleans up; patient completes activity. [place] assists only prior to or following the activity. 4-Supervision or Touching Assistance-helper provides verbal cues and/or touching/steadying and/or contact guard assistance as patient completes activity. Assistance may be provided throughout the activity or intermittently. 3-Partial/Moderate Assistance-helper does LESS THAN HALF the effort. [place] lifts, holds or supports trunk or limbs, but provides less than half the effort. 2-Substantial/Maximal Assistance-helper does MORE THAN HALF the effort. [place] lifts or holds trunk or limbs and provides more than half the effort. 3-Eqlwwagml-zmzdem does ALL the effort. Patient does none of the effort to complete the activity. Or, the assistance of 2 or more helpers is required for the patient to complete the activity. If activity was not attempted, code reason: 7-Patient Refused. 9-Not Applicable-not attempted and the patient did not perform the activity before the current illness, exacerbation or injury. 10-Not Attempted due to Environmental Limitations-(lack of equipment, weather restraints, etc.). 88-Not Attempted due to Medical Conditions or Safety Concerns. Roll Left & Right (QC): 4 Sit to Lying (QC): 4 Lying to Sitting/Side of Bed(Q: 4 Sit to Stand (QC): 2 Chair/Wam-cc-Yrgwt Xfer(QC): 2 Weight Bearing Full Weight Bearing Full Weight Bearing Wheelchair Training Does the Pt Use a Wheelchair?: Yes Wheel 50 ft with 2 turns (QC): 5 Wheel 150 ft (QC): 5 Type of Wheelchair: Manual VC for sequencing Treatments 1st rxpboqn-Fx-angcp with PT ([id number]), skills of 2 clinicians required for skilled care and treatment due to decreased activity tolerance, debility and increased SOA. PT focusing on mobility and transfers while OT focusing on B UE placement with mobility and ADLs. In supine, pt able to bring feet up to apply lotion and pull up socks after assist to initiate. Independent with oral care sitting at sink. Dependent with lower body clothing. Min A for upper body clothing. Max A x2 for SPT. Pt takes increased time to complete tasks due to debility and increased SOA requiring multiple recovery breaks. Pt working on w/c mobility to increase activity tolerance and B UE strengthening. Using sit to stand lift, pt transferred back to bed then was able to lift B LE's into bed. After session, pt lying in bed with call light/phone in reach. All needs met in room. Assessment Current Status: Good Progress Pt is improving with bed mobility and ADLs but still needing assistance with TF. PT Short Term Goals Short Term Goals Time Frame: Nov 27, 2020 Roll Left & Right: 3 Sit to lyin Lying to sitting on side of be: 3 Sit to stand: 3 Chair/sqk-qj-lewuq transfer: 3 Walk 10 feet: 3 PT Mcfp Goals Mcfp Goals PT Alteration Specialist Goals Time Frame: Dec 11, 2020 Roll Left & Right (QC): 4 Sit to Lying (QC): 4 Lying-Sitting on Side/Bed(QC): 4 Sit to Stand (QC): 4 Chair/Bly-mc-Sydbe Xfer(QC): 4 Toilet Transfer (QC): 4 Car Transfer (QC): 3 Does the Patient Walk: Yes Walk 10 feet (QC): 3 Walk 50ft with 2 Turns (QC): 3 Walk 150 ft (QC): 88 Walking 10ft on Uneven Surface: 3 1 Step (curb) (QC): 3 4 Steps (QC): 88 12 Steps (QC): 88 Picking up an Object (QC): 88 Wheel 50 feet with 2 turns (QC: 6 Wheel 150 feet: 6 PT Plan Problem List Problem List: Activity Tolerance, Functional Strength, Safety, Balance, Gait, Transfer Treatment/Plan Treatment Plan: Continue Plan of Care Treatment Plan: Bed Mobility, Education, Functional Activity Leti, Functional Strength, Group Therapy, Gait, Safety, Therapeutic Exercise, Transfers Treatment Duration: Dec 11, 2020 Frequency: Modified Program (IRF) Estimated Hrs Per Day: 1 hour per day Patient and/or Family Agrees t: Yes Safety Risks/Education Patient Education: Transfer Techniques, Correct Positioning, W/C Management, Safety Issues Teaching Recipient: Patient Teaching Methods: Discussion Response to Teaching: Verbalize Understanding Time/GCodes Time In: 900 Time Out: 1000 Total Billed Treatment Time: 60 Total Billed Treatment 1, FA x2 (35m) & WC x2 (25m) Co-treat w/OT for 60m OLINDAKARYN [employer]TON [employer] Dec 04, 2020 11:07
--- NOTE | 2020-12-04 11:27 | Occupational Ther Daily Note ---
OT Current Status-Daily Note Subjective Pt alert, lying in bed. Pt agrees to therapy. No c/o pain. Mental Status/Objective Patient Orientation: Person, Place, Time, Situation Attachments: Mejia Catheter, IV (midline), Oxygen (2L) ADL-Treatment 1st zknljgo-Nf-xjxej with PT ([id number]), skills of 2 clinicians required for skilled care and treatment due to decreased activity tolerance, debility and increased SOA. PT focusing on mobility and transfers while OT focusing on B UE placement with mobility and ADLs. In supine, pt able to bring feet up to apply lotion and pull up socks after assist to initiate. Independent with oral care sitting at sink. Dependent with lower body clothing. Min A for upper body clothing. Max A x2 for SPT. Pt takes increased time to complete tasks due to debility and increased SOA requiring multiple recovery breaks. Pt working on w/c mobility to increase activity tolerance and B UE strengthening. Using sit to stand lift, pt transferred back to bed then was able to lift B LE's into bed. After session, pt lying in bed with call light/phone in reach. All needs met in room. Therapy Code Descriptions/Definitions Functional [place] Measure: 0=Not Assessed/NA 4=Minimal Assistance 1=Total Assistance 5=Supervision or Setup 2=Maximal Assistance 6=Modified [place] 3=Moderate Assistance 7=Complete IndependenceSCALE: Activities may be completed with or without assistive devices. 6-Prsvzwkrtr-fkiknue completes the activity by him/herself with no assistance from a helper. 5-Set-up or Clean-up Assistance-helper sets up or cleans up; patient completes activity. [place] assists only prior to or following the activity. 4-Supervision or Touching Assistance-helper provides verbal cues and/or touching/steadying and/or contact guard assistance as patient completes activity. Assistance may be provided throughout the activity or intermittently. 3-Partial/Moderate Assistance-helper does LESS THAN HALF the effort. [place] lifts, holds or supports trunk or limbs, but provides less than half the effort. 2-Substantial/Maximal Assistance-helper does MORE THAN HALF the effort. [place] lifts or holds trunk or limbs and provides more than half the effort. 1-Frmxzpnir-dbeggj does ALL the effort. Patient does none of the effort to complete the activity. Or, the assistance of 2 or more helpers is required for the patient to complete the activity. If activity was not attempted, code reason: 7-Patient Refused. 9-Not Applicable-not attempted and the patient did not perform the activity before the current illness, exacerbation or injury. 10-Not Attempted due to Environmental Limitations-(lack of equipment, weather restraints, etc.). 88-Not Attempted due to Medical Conditions or Safety Concerns. Oral Hygiene (QC): 6 Lower Body Dressing (QC): 1 On/Off Footwear: 3 Other Treatment 2nd session-Supine to EOB with HOB slightly elevated, SBA. Pt sat EOB independently. Using sit to stand lift, pt able to tolerate standing for 1 min prior to transferring to [facility]. Pt requires assist to manipulate clothing and cleanse self. Pt then used sit to stand lift to stand for 1 min again and fatigued quickly. At end of session, pt sitting in recliner with feet elevated and call light/phone in reach. All needs met in room. OT Short Term Goals Short Term Goals Time Frame: Dec 11, 2020 Shower/bathe self: 4 Upper body dressin Lower body dressin OT [facility] Goals [facility] Goals Time Frame: Dec 20, 2020 Eating (QC): 6 Oral Hygiene (QC): 6 Toileting Hygiene (QC): 6 Shower/Bathe Self (QC): 6 Upper Body Dressing (QC): 6 Lower Body Dressing (QC): 6 On/Off Footwear (QC): 6 Additional Goals: 1-Demonstrate ADL Tasks, 2-Verbalize Understanding, 3-Improv eStrength/Leti 1=Demonstrate adherence to instructed precautions during ADL tasks. 2=Patient will verbalize/demonstrate understanding of assistive devices/modifications for ADL. 3=Patient will improve strength/tolerance for activity to enable patient to p erform ADL's. OT Education/Plan Problem List/Assessment Assessment: Decreased Activ Tolerance, Decreased UE Strength, Dependent Transfers, Impaired Coordination, Impaired Funct Balance, Impaired Self-Care Skills Discharge Recommendations Plan/Recommendations: Continue POC Treatment Plan/Plan of Care Patient would benefit from OT for education, treatment and training to promote independence in ADL's, mobility, safety and/or upper extremity function for ADL's. Plan of Care: ADL Retraining, Functional Mobility, Group Exercise/Act as Ind, UE Funct Exercise/Act Treatment Duration: Dec 20, 2020 Frequency: Modified Program (IRF) Estimated Hrs Per Day: 1 hour per day Rehab Potential: Fair Time/GCodes Start Time: 09:00 ([id number]) Stop Time: 12:00 ([id number]) Total Time Billed (hr/min): 90 Billed Treatment Time 2 visits-ADL 2 (30 min) FA 4 (60 min) co-treat with PT [id number], individual [id number] VIOLET BACA Dec 04, 2020 11:27
[2020-12-04 17:21] VITALS: BP 107/57
[2020-12-04] MEDS: ALPRAZolam 0.25 MG (XANAX) TAB PO PRN (22:42)
[2020-12-04] MEDS: MIRTAZAPINE 15 MG (REMERON) TAB PO SCH (22:42)
[2020-12-04] MEDS: MELATONIN 10 MG TABLET PO SCH (22:42)
--- NOTE | 2020-12-05 05:16 | PM&R Progress Note ---
Subjective HPI/CC On Admission Date Seen by Provider: Dec 05, 2020 Time Seen by Provider: 09:00 Subjective/Events-last exam 12/05/20: BM today 2L/min BP low so will monitor closely Improved transfers Updated patient and his who was on the phone 12/04/20: Pt slept very well again Coughing up a little bit more sputum that does show MRSA and ESBL, will remain in isolation Valdes is back in Will have TURP on Wednesday, holding Eliquis on Wednesday Incontinence of bowels is noted Overall extremely improved 12/03/20: Discontinued catheter yesterday by Dr. 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 Up in chair today BM++ Good outlook O2 at 3L/min Increase O2 during therapies 11/29/20: No new issues Midline was placed now flushes maintained Much improved status Down to 1 L of oxygen Increased oxygen requirement with exercise Still with Valdes catheter in place Upright in wheelchair today Dramatic improvement 11/28/20: Slept a bit better Midline for Venofer will be placed Much improved status BSC today Valdes cath replaced 11/27/20: Pt remains on 1 liter per minute of oxygen Appears to be much improved today Cystoscope done today showing large prostate Proscar along with Flomax was initiated Cath was done and obtained 1000cc of urine Nystatin cream and powder will be initiated Overall much improved 11/26/20: Pt did not sleep last night due to urinary frequency Had to do straight in and out cath x4 last night Dr. Marsh will be updated Blood in the urine 1 liter of O2 now but will need a higher level when he is working out CT chest and ABG reviewed 11/25/20: ABG is pending from not being drawn yet CT of the chest will be performed, Dr. Schrader has been updated Bowels moved yesterday 11/24/20: Venofer IV started and I explained why I started that for him Will check CT scan of chest tomorrow and consult Dr Schrader Labs and ABG ordered as well Still very tachypneic with conversation and at rest Monitoring BP 2L/min 11/23/20: No orthostasis today Worked with PT OT BM++ O2 maintained 11/22/20: Hgb 8.6 today Feels better since IVF 500cc yesterday and changed cardiac meds by Dr Cisneros [place] was born and he is thrilled about that Valdes cath still in place Fecal incontinence noted RT left him without O2 since he was good BRIEFLY on room air after Nebs for 1 hour and spot checked and he was at 85% and he was very short of breath just resting 11/21/20: Had episode of hypotension 76/40 with symptoms when got to edge of bed so laid back down, Cardiology notified and given 500cc of IVF Patient is on a waiver due to COVID and hypoxia for slow therapy and only 120 minutes per day Cardizem CD 120mg now after changed by Dr Cisneros ECHO done Stopped Lasix Valdes cath remains in place Review of Systems General: Fatigue, Malaise Neurological: Weakness, Incoordination Objective Exam Vital Signs Vital Signs Date Time Temp Pulse Resp B/P (MAP) Pulse Ox O2 Delivery O2 Flow Rate FiO2 12/05/20 20:00 Nasal Cannula 2.00 12/05/20 16:30 36.8 96 14 103/66 (78) 100 Capillary Refill : Less Than 3 Seconds General Appearance: No Apparent Distress, WD/WN, Chronically ill, Thin HEENT: PERRL/EOMI, Normal ENT Inspection, Pharynx Normal Neck: Full Range of Motion, Normal Inspection, Non Tender, Supple, Carotid Bruit Respiratory: Chest Non Tender, Lungs Clear, No Respiratory Distress, Accessory Muscle Use, Decreased Breath Sounds Cardiovascular: Regular Rate, Rhythm, No Edema, No Gallop, No JVD, No Murmur, Normal Peripheral Pulses Gastrointestinal: Normal Bowel Sounds, No Organomegaly, No Pulsatile Mass, Non Tender, Soft Back: Normal Inspection, No CVA Tenderness, No Vertebral Tenderness Extremity: Normal Capillary Refill, Normal Inspection, Normal Range of Motion, Non Tender, No Calf Tenderness, No Pedal Edema Neurologic/Psychiatric: Alert, Oriented x3, No Motor/Sensory Deficits, Normal Mood/Affect, Motor Weakness (generalized 2/5 lower extremities, 3/5 upper extremities) Skin: Normal Color, Warm/Dry Lymphatic: No Adenopathy Results/Procedures Lab Patient resulted labs reviewed. FIM Transfers Therapy Code Descriptions/Definitions Functional [place] Measure: 0=Not Assessed/NA 4=Minimal Assistance 1=Total Assistance 5=Supervision or Setup 2=Maximal Assistance 6=Modified [place] 3=Moderate Assistance 7=Complete IndependenceSCALE: Activities may be completed with or without assistive devices. 3-Mfcnnsrusj-xilwkcc completes the activity by him/herself with no assistance from a helper. 5-Set-up or Clean-up Assistance-helper sets up or cleans up; patient completes activity. [place] assists only prior to or following the activity. 4-Supervision or Touching Assistance-helper provides verbal cues and/or touching/steadying and/or contact guard assistance as patient completes activity. Assistance may be provided throughout the activity or intermittently. 3-Partial/Moderate Assistance-helper does LESS THAN HALF the effort. [place] lifts, holds or supports trunk or limbs, but provides less than half the effort. 2-Substantial/Maximal Assistance-helper does MORE THAN HALF the effort. [place] lifts or holds trunk or limbs and provides more than half the effort. 9-Wqdqoqnqt-npygew does ALL the effort. Patient does none of the effort to complete the activity. Or, the assistance of 2 or more helpers is required for the patient to complete the activity. If activity was not attempted, code reason: 7-Patient Refused. 9-Not Applicable-not attempted and the patient did not perform the activity before the current illness, exacerbation or injury. 10-Not Attempted due to Environmental Limitations-(lack of equipment, weather restraints, etc.). 88-Not Attempted due to Medical Conditions or Safety Concerns. Roll Left to Right (QC): 4 Sit to Lying (QC): 4 Sit to Stand (QC): 2 Chair/Cpm-pl-Xyqwg Xfer(QC): 2 Car Transfer (QC): 2 Gait Training Does the Patient Walk?: No and Walking Goal IS indicated Walk 10 feet (QC): 88 Walk 50 ft with 2 Turns(QC): 88 Walk 150 ft (QC): 88 Walking 10ft/uneven surface-QC: 88 Wheelchair Training Does the Pt Use a Wheelchair?: Yes Wheel 50 ft with 2 turns (QC): 5 Wheel 150 ft (QC): 5 Type of Wheelchair: Manual Stair Training 1 Step (curb) (QC): 88 4 Steps (QC): 88 12 Steps (QC): 88 Balance Picking up an Object (QC): 88 ADL-Treatment Eating (QC): 6 Oral Hygiene (QC): 6 Bathing Location: L Arm, R Arm, L Upper Leg, R Upper Leg, Chest, Abdomen, Buttocks, Perineal Area Shower/Bathe Self (QC): 3 Upper Body Dressing (QC): 5 Lower Body Dressing (QC): 1 On/Off Footwear (QC): 3 Toileting Hygiene (QC): 1 Toilet Transfer (QC): 1 Assessment/Plan Assessment and Plan Assess & Plan/Chief Complaint Assessment: Myopathy COVID-19 PNA Urinary retention Valdes cath in place Bowel incontinence Hypoxia O2 dependent BPH Frail Advanced age Plan: IRF protocol but 120 minutes per day to accommodate hypoxia at activity Varina meds Melatonin at night 11/21/20: s/o IVF Monitor hypotension and hypoxia Appreciate Dr Cisneros ECHO done Add Remeron for sleep with Melatonin 11/22/20: No possibility of weaning O2 for now with this patient so needs on 21/06 and will update RT Increase activity 11/23/20: Maintain O2 Nebs Monitor BP 11/24/20: Venofer Labs and ABG and CT chest in am Dr Schrader consultation Maintain O2 Very fragile lungs 11/25/20: CT chest ABG Dr Schrader consultation 11/26/20: Dr Schrader appreciated Dr Marsh appreciated 11/27/20: Dr Marsh appreciated Monitor O2 11/28/20: Valdes cath in place Midline Venofer 11/29/20: Midline flushes Venofer Monitor closely Dramatic improvement 11/30/20: Dramatic improvement continues Monitor closely Increase O2 with therapy 12/01/20: Bowel incontinence could complicate DC plans Monitor urinary retention closely 12/02/20: Manage B/B incontinence Improved status Labs good 12/03/20: Improved insomnia Continue treatment B/B incontinence 12/04/20: TURP next Wed Hold OAC as of Wednesday Conferred with Dr Marsh and patient 12/05/20: Improved transfers Monitor closely O2 Incontinence management (1) Myopathy (2) COVID-19 (3) Hypoxia (4) Urinary retention (5) Valdes catheter in place (6) BPH (benign prostatic hyperplasia) (7) Bowel incontinence (8) Supplemental oxygen dependent (9) Advanced age (10) Frailty BARB COLLINS DO Dec 05, 2020 05:16
[2020-12-05 06:00] VITALS: BP 96/62
[2020-12-05] MEDS: CATHETER FLUSH 10 ML SYR IV SCH ×3 (06:34→20:56)
[2020-12-05] MEDS: predniSONE 10 MG TAB PO SCH (06:34)
[2020-12-05] MEDS: RT-ALBUTEROL/IPRATROPIUM 3 ML (DUONEB) VIAL IH SCH ×2 (07:03→07:05)
[2020-12-05] MEDS: ADVAIR HFA 115/21 MCG INHALER 8 GM IH SCH (07:05)
[2020-12-05 08:45] VITALS: BP 86/50
[2020-12-05] MEDS: CYANOCOBALAMIN 1,000 MCG (VITAMIN B-12) TABLET NG SCH (08:50)
[2020-12-05] MEDS: SENNA W/DOCUSATE (SENOKOT S) TABLET PO SCH ×2 (08:50→20:01)
[2020-12-05] MEDS: TAMSULOSIN 0.4 MG (FLOMAX) CAP PO SCH ×2 (08:50→20:55)
[2020-12-05] MEDS: FOLIC ACID 1 MG TAB PO SCH (08:50)
[2020-12-05] MEDS: DOCUSATE SODIUM 100 MG (COLACE) CAP PO SCH ×2 (08:51→20:00)
[2020-12-05] MEDS: FINASTERIDE (PROSCAR) 5 MG TAB PO SCH (08:51)
[2020-12-05] MEDS: APIXABAN 5 MG (ELIQUIS) TABLET PO SCH ×2 (08:51→20:55)
[2020-12-05] MEDS: LORATADINE (CLARITIN) 10 MG TAB PO SCH (08:51)
[2020-12-05] MEDS: MONTELUKAST 10 MG (SINGULAIR) TAB PO SCH (08:51)
[2020-12-05] MEDS: PANTOPRAZOLE 40 MG (PROTONIX) TAB PO SCH (08:51)
[2020-12-05] MEDS: LACTOBACILLUS ACIDOPHILUS (PROBIOTIC) CAPSULE PO SCH ×2 (08:51→20:55)
[2020-12-05] MEDS: SALINE NASAL SPRAY (OCEAN) 45 ML BTL PRN (08:52)
[2020-12-05] MEDS: ROFLUMILAST 500 MCG TAB (DALIRESP) NG SCH (08:53)
[2020-12-05] MEDS: meTOprolol TARTRATE 25 MG (LOPRESSOR) TABLET PO SCH ×2 (08:56→20:56)
[2020-12-05] MEDS: NYSTATIN CREAM (MYCOSTATIN) 30 GM TUBE TP SCH ×3 (09:00→20:57)
[2020-12-05] MEDS: MICONAZOLE 2% POWDER (DESENEX AF) 90 GM TOP SCH ×2 (09:00→20:57)
[2020-12-05] MEDS: polyethylene glycoL POWDER 17 GM (MIRALAX) PACK PO SCH ×2 (09:00→20:01)
--- NOTE | 2020-12-05 09:59 | Physical Therapy Daily Note ---
PT Daily Note-Current Subjective Patient in bed pre tx, agrees to PT, has no complaints of pain, will be co- treating with OT due to poor patient mobility, strength, endurance, the need to coordinate UE and LE during activity, safety and reduce risk of falls. Appearance Patient in recliner post tx with nurse call, phone, tray, all needs met, legs elevated. Mental Status Patient Orientation: Person, Place, Situation Attachments: Oxygen, Mejia Catheter Transfers SCALE: Activities may be completed with or without assistive devices. 2-Jvodzjzfdr-cnumyas completes the activity by him/herself with no assistance from a helper. 5-Set-up or Clean-up Assistance-helper sets up or cleans up; patient completes activity. [place] assists only prior to or following the activity. 4-Supervision or Touching Assistance-helper provides verbal cues and/or touching/steadying and/or contact guard assistance as patient completes activity. Assistance may be provided throughout the activity or intermittently. 3-Partial/Moderate Assistance-helper does LESS THAN HALF the effort. [place] lifts, holds or supports trunk or limbs, but provides less than half the effort. 2-Substantial/Maximal Assistance-helper does MORE THAN HALF the effort. [place] lifts or holds trunk or limbs and provides more than half the effort. 1-Hhgatutmn-liirzp does ALL the effort. Patient does none of the effort to c omplete the activity. Or, the assistance of 2 or more helpers is required for the patient to complete the activity. If activity was not attempted, code reason: 7-Patient Refused. 9-Not Applicable-not attempted and the patient did not perform the activity before the current illness, exacerbation or injury. 10-Not Attempted due to Environmental Limitations-(lack of equipment, weather restraints, etc.). 88-Not Attempted due to Medical Conditions or Safety Concerns. Roll Left & Right (QC): 6 Lying to Sitting/Side of Bed(Q: 5 Sit to Stand (QC): 3 Chair/Eio-vl-Uzeng Xfer(QC): 3 Toilet Transfer (QC): 3 Patient states he needs to use the commode after sitting on the side of the bed. Stand pivot to commode, later stand to wipe, sit back down, stand to pull up pants (dependent), stand pivot to WC, propel to therapy gym, stand x3 in parallel bars for about 30 seconds each time, propel back to room, stand pivot to recliner. Weight Bearing Full Weight Bearing Full Weight Bearing Wheelchair Training Does the Pt Use a Wheelchair?: Yes Wheel 50 ft with 2 turns (QC): 4 Wheel 150 ft (QC): 4 Type of Wheelchair: Manual 150'x2 Treatments PT worked on bed mobility, transfers, toileting, standing, WC mobility, OT worked on cleaning, dressing, UE positioning and safety during activity. Assessment Current Status: Fair Progress very slowly improving functional mobility, patient is not yet able to stand using a walker, patient needs frequent rest breaks due to fatigue and SOB PT Short Term Goals Short Term Goals Time Frame: Nov 27, 2020 Roll Left & Right: 3 Sit to lyin Lying to sitting on side of be: 3 Sit to stand: 3 Chair/ipi-aa-hwkst transfer: 3 Walk 10 feet: 3 PT Mcc Goals Psychiatric Secretary Goals PT Psychiatric Secretary Goals Time Frame: Dec 11, 2020 Roll Left & Right (QC): 4 Sit to Lying (QC): 4 Lying-Sitting on Side/Bed(QC): 4 Sit to Stand (QC): 4 Chair/Vcf-um-Iumqy Xfer(QC): 4 Toilet Transfer (QC): 4 Car Transfer (QC): 3 Does the Patient Walk: Yes Walk 10 feet (QC): 3 Walk 50ft with 2 Turns (QC): 3 Walk 150 ft (QC): 88 Walking 10ft on Uneven Surface: 3 1 Step (curb) (QC): 3 4 Steps (QC): 88 12 Steps (QC): 88 Picking up an Object (QC): 88 Wheel 50 feet with 2 turns (QC: 6 Wheel 150 feet: 6 PT Plan Problem List Problem List: Activity Tolerance, Functional Strength, Safety, Balance, Gait, Transfer, Bed Mobility, ROM Treatment/Plan Treatment Plan: Continue Plan of Care Treatment Plan: Bed Mobility, Education, Functional Activity Leti, Functional Strength, Group Therapy, Gait, Safety, Therapeutic Exercise, Transfers Treatment Duration: Dec 11, 2020 Frequency: Modified Program (IRF) Estimated Hrs Per Day: 1 hour per day Patient and/or Family Agrees t: Yes Safety Risks/Education Patient Education: Transfer Techniques, Correct Positioning, W/C Management, Safety Issues Teaching Recipient: Patient Teaching Methods: Demonstration, Discussion Response to Teaching: Reinforcement Needed Time/GCodes Time In: 0900 Time Out: 1000 Total Billed Treatment Time: 60 Total Billed Treatment 1 visit FA Dereck' CULLEN WORTHINGTON PT Dec 05, 2020 09:59
--- NOTE | 2020-12-05 10:01 | Occupational Ther Daily Note ---
OT Current Status-Daily Note Subjective Pt alert, lying in bed. Pt agrees to therapy. No c/o pain at this time. Mental Status/Objective Patient Orientation: Person, Place, Time, Situation Attachments: Oxygen (2L) ADL-Treatment 1st mgmwurp-Dx-bpikp with PT ([id number]), skills of 2 clinicians required for skilled care and treatment due to decreased activity tolerance, debility and increased SOA. PT focusing on mobility and transfers while OT focusing on B UE placement with mobility and ADLs. With HOB slightly elevated, pt able to go from supine to EOB by self then sit EOB independently. Pt requested to use BSC. Assist x2 for SPT to BSC. Assist x2 to manipulate clothing and cleanse self, unable to stand one time to complete each task required a break between each. Pt requires multiple recovery breaks throughout session. Pt dependent with lower body dressing. Therapy Code Descriptions/Definitions Functional [place] Measure: 0=Not Assessed/NA 4=Minimal Assistance 1=Total Assistance 5=Supervision or Setup 2=Maximal Assistance 6=Modified [place] 3=Moderate Assistance 7=Complete IndependenceSCALE: Activities may be completed with or without assistive devices. 5-Xnubaadnye-mlorfzs completes the activity by him/herself with no assistance from a helper. 5-Set-up or Clean-up Assistance-helper sets up or cleans up; patient completes activity. [place] assists only prior to or following the activity. 4-Supervision or Touching Assistance-helper provides verbal cues and/or touching/steadying and/or contact guard assistance as patient completes act ivity. Assistance may be provided throughout the activity or intermittently. 3-Partial/Moderate Assistance-helper does LESS THAN HALF the effort. [place] lifts, holds or supports trunk or limbs, but provides less than half the effort. 2-Substantial/Maximal Assistance-helper does MORE THAN HALF the effort. [place] lifts or holds trunk or limbs and provides more than half the effort. 9-Qxpuetyge-smzstw does ALL the effort. Patient does none of the effort to complete the activity. Or, the assistance of 2 or more helpers is required for the patient to complete the activity. If activity was not attempted, code reason: 7-Patient Refused. 9-Not Applicable-not attempted and the patient did not perform the activity before the current illness, exacerbation or injury. 10-Not Attempted due to Environmental Limitations-(lack of equipment, weather restraints, etc.). 88-Not Attempted due to Medical Conditions or Safety Concerns. Lower Body Dressing (QC): 1 Toileting Hygiene (QC): 1 Toilet Transfer (QC): 1 Other Treatment Pt propelled w/c to therapy gym by self. Assist x2 to complete sit to stand then remain standing in parallel bars for a short amount of time. Pt fatigues quickly and unable to stand upright due to debility/weakness. See PT notes for progress. After session, pt sitting recliner with call light/phone in reach. All needs met in room. 2nd session([id number]) Pt requested to get into bed from recliner. Pt able to scoot self forward using chair arms. Pt assisted applying sling for sit to stand lift. Using sit to stand lift, pt was transferred to bed. Pt able to sit EOB independently then was able to go to supine independently. Raising the feet of the bed then with verbal cues for hand and foot placement, pt was able to scoot self up in bed. After session, pt lying in bed with call light/phone in reach. All needs met in room. OT Short Term Goals Short Term Goals Time Frame: Dec 11, 2020 Shower/bathe self: 4 Upper body dressin Lower body dressin OT Plant Accountant Goals Plant Accountant Goals Time Frame: Dec 20, 2020 Eating (QC): 6 Oral Hygiene (QC): 6 Toileting Hygiene (QC): 6 Shower/Bathe Self (QC): 6 Upper Body Dressing (QC): 6 Lower Body Dressing (QC): 6 On/Off Footwear (QC): 6 Additional Goals: 1-Demonstrate ADL Tasks, 2-Verbalize Understanding, 3- ImproveStrength/Leti 1=Demonstrate adherence to instructed precautions during ADL tasks. 2=Patient will verbalize/demonstrate understanding of assistive devices/modifications for ADL. 3=Patient will improve strength/tolerance for activity to enable patient to perform ADL's. OT Education/Plan Problem List/Assessment Assessment: Decreased Activ Tolerance, Decreased UE Strength, Dependent Transfers, Impaired Coordination, Impaired Funct Balance, Impaired Self-Care Skills Discharge Recommendations Plan/Recommendations: Continue POC Treatment Plan/Plan of Care Patient would benefit from OT for education, treatment and training to promote independence in ADL's, mobility, safety and/or upper extremity function for ADL's. Plan of Care: ADL Retraining, Functional Mobility, Group Exercise/Act as Ind, UE Funct Exercise/Act Treatment Duration: Dec 20, 2020 Frequency: Modified Program (IRF) Estimated Hrs Per Day: 1 hour per day Rehab Potential: Fair Time/GCodes Start Time: 09:00 ([id number]) Stop Time: 12:00 ([id number]) Total Time Billed (hr/min): 80 Billed Treatment Time 2 visits-ADL (15 min) FA 4 (65 min) co-treat with PT 60 min ([id number]), individual 20 min ([id number]) VIOLET BACA Dec 05, 2020 10:01
--- NOTE | 2020-12-05 11:00 | Progress Note - Urology ---
Progress Note-Urology Progress Notes/Assess & Plan Progress/Assessment & Plan TURP NEXT WEEK Final Diagnosis RETENTION DENTON MA MD Dec 05, 2020 11:00
[2020-12-05 16:30] VITALS: BP 103/66
[2020-12-05] MEDS: ALPRAZolam 0.25 MG (XANAX) TAB PO PRN (20:55)
[2020-12-05] MEDS: MELATONIN 10 MG TABLET PO SCH (20:55)
[2020-12-05] MEDS: MIRTAZAPINE 15 MG (REMERON) TAB PO SCH (20:55)
[2020-12-06] MEDS: RT-ALBUTEROL/IPRATROPIUM 3 ML (DUONEB) VIAL IH SCH ×2 (00:21→22:28)
[2020-12-06] MEDS: ADVAIR HFA 115/21 MCG INHALER 8 GM IH SCH ×2 (00:21→22:29)
[2020-12-06 06:07] VITALS: BP 90/57
[2020-12-06] MEDS: CATHETER FLUSH 10 ML SYR IV SCH ×3 (06:36→22:44)
[2020-12-06] MEDS: predniSONE 10 MG TAB PO SCH (06:36)
[2020-12-06] MEDS: APIXABAN 5 MG (ELIQUIS) TABLET PO SCH ×2 (09:08→20:52)
[2020-12-06] MEDS: LORATADINE (CLARITIN) 10 MG TAB PO SCH (09:08)
[2020-12-06] MEDS: MONTELUKAST 10 MG (SINGULAIR) TAB PO SCH (09:08)
[2020-12-06] MEDS: CYANOCOBALAMIN 1,000 MCG (VITAMIN B-12) TABLET NG SCH (09:08)
[2020-12-06] MEDS: TAMSULOSIN 0.4 MG (FLOMAX) CAP PO SCH ×2 (09:08→20:52)
[2020-12-06] MEDS: FINASTERIDE (PROSCAR) 5 MG TAB PO SCH (09:09)
[2020-12-06] MEDS: ROFLUMILAST 500 MCG TAB (DALIRESP) NG SCH (09:09)
[2020-12-06] MEDS: PANTOPRAZOLE 40 MG (PROTONIX) TAB PO SCH (09:09)
[2020-12-06] MEDS: LACTOBACILLUS ACIDOPHILUS (PROBIOTIC) CAPSULE PO SCH ×2 (09:09→20:52)
[2020-12-06] MEDS: FOLIC ACID 1 MG TAB PO SCH (09:09)
[2020-12-06] MEDS: NYSTATIN CREAM (MYCOSTATIN) 30 GM TUBE TP SCH ×3 (09:10→21:00)
[2020-12-06] MEDS: MICONAZOLE 2% POWDER (DESENEX AF) 90 GM TOP SCH ×2 (09:10→20:58)
[2020-12-06 09:15] VITALS: BP 94/56
--- NOTE | 2020-12-06 09:29 | Physical Therapy Daily Note ---
PT Daily Note-Current Subjective Patient in bed pre tx, agrees to PT, has no complaints of pain at rest. Will be co-treating with OT due to poor patient mobility, strength, endurance, coordinate UE and LE during activity, reduce risk of falls, dropping O2 with activity. Appearance Patient in recliner post tx with nurse call, phone, tray, legs elevated, legs on pillows for pressure relief Mental Status Patient Orientation: Person, Place, Situation Attachments: Oxygen, Mejia Catheter Transfers SCALE: Activities may be completed with or without assistive devices. 4-Nkptwoxhtx-xndwuic completes the activity by him/herself with no assistance from a helper. 5-Set-up or Clean-up Assistance-helper sets up or cleans up; patient completes activity. [place] assists only prior to or following the activity. 4-Supervision or Touching Assistance-helper provides verbal cues and/or touching/steadying and/or contact guard assistance as patient completes activity. Assistance may be provided throughout the activity or intermittently. 3-Partial/Moderate Assistance-helper does LESS THAN HALF the effort. [place] lifts, holds or supports trunk or limbs, but provides less than half the effort. 2-Substantial/Maximal Assistance-helper does MORE THAN HALF the effort. [place] lifts or holds trunk or limbs and provides more than half the effort. 0-Tvffimhcm-kfkmiy does ALL the effort. Patient does none of the effort to complete the activity. Or, the assistance of 2 or more helpers is required for the patient to complete the activity. If activity was not attempted, code reason: 7-Patient Refused. 9-Not Applicable-not attempted and the patient did not perform the activity before the current illness, exacerbation or injury. 10-Not Attempted due to Environmental Limitations-(lack of equipment, weather restraints, etc.). 88-Not Attempted due to Medical Conditions or Safety Concerns. Roll Left & Right (QC): 6 Lying to Sitting/Side of Bed(Q: 3 Sit to Stand (QC): 3 Chair/Khk-xt-Lzalz Xfer(QC): 3 mod assist for sit to stand and transfer to commode. Then stand, clean, stand pivot transfer to shower chair, taken to shower, bathe, dress and groom, roll back out into room and stand pivot to recliner. Weight Bearing Full Weight Bearing Full Weight Bearing Treatments PT performed bed mobility and transfers, standing for cleaning, assist with sitting balance and positioning during bathing, OT worked on dressing and bathing, assist with transfers, UE positioning and safety during activity. Assessment Current Status: Fair Progress slightly improved stand pivot transfers PT Short Term Goals Short Term Goals Time Frame: Nov 27, 2020 Roll Left & Right: 3 Sit to lyin Lying to sitting on side of be: 3 Sit to stand: 3 Chair/whl-ad-bdvsh transfer: 3 Walk 10 feet: 3 PT Detention Goals Plant Engineering Manager Goals PT Detention Goals Time Frame: Dec 11, 2020 Roll Left & Right (QC): 4 Sit to Lying (QC): 4 Lying-Sitting on Side/Bed(QC): 4 Sit to Stand (QC): 4 Chair/Bnp-ii-Ktpfo Xfer(QC): 4 Toilet Transfer (QC): 4 Car Transfer (QC): 3 Does the Patient Walk: Yes Walk 10 feet (QC): 3 Walk 50ft with 2 Turns (QC): 3 Walk 150 ft (QC): 88 Walking 10ft on Uneven Surface: 3 1 Step (curb) (QC): 3 4 Steps (QC): 88 12 Steps (QC): 88 Picking up an Object (QC): 88 Wheel 50 feet with 2 turns (QC: 6 Wheel 150 feet: 6 PT Plan Problem List Problem List: Activity Tolerance, Functional Strength, Safety, Balance, Gait, Transfer, Bed Mobility, ROM Treatment/Plan Treatment Plan: Continue Plan of Care Treatment Plan: Bed Mobility, Education, Functional Activity Leti, Functional Strength, Group Therapy, Gait, Safety, Therapeutic Exercise, Transfers Treatment Duration: Dec 11, 2020 Frequency: Modified Program (IRF) Estimated Hrs Per Day: 1 hour per day Patient and/or Family Agrees t: Yes Safety Risks/Education Patient Education: Transfer Techniques, Correct Positioning, Safety Issues Teaching Recipient: Patient Teaching Methods: Demonstration, Discussion Response to Teaching: Reinforcement Needed Time/GCodes Time In: 0900 Time Out: 1000 Total Billed Treatment Time: 60 Total Billed Treatment 1 visit FA Dereck' CULLEN WORTHINGTON PT Dec 06, 2020 09:29
--- NOTE | 2020-12-06 09:47 | NUR ---
CALL TO DR. TIERNEY'S OFFICE TO NOTIFY OF CONSULT. OFFICE IS CLOSED. MESSAGE LEFT. WILL PASS ON TO TRY AGAIN ON 12/09/20.
[2020-12-06] MEDS: meTOprolol TARTRATE 25 MG (LOPRESSOR) TABLET PO SCH ×2 (10:36→20:53)
[2020-12-06 10:37] VITALS: BP 100/57
[2020-12-06] MEDS: SENNA W/DOCUSATE (SENOKOT S) TABLET PO SCH ×2 (10:38→20:52)
[2020-12-06] MEDS: DOCUSATE SODIUM 100 MG (COLACE) CAP PO SCH ×2 (10:39→20:52)
[2020-12-06] MEDS: polyethylene glycoL POWDER 17 GM (MIRALAX) PACK PO SCH ×2 (10:39→20:53)
--- NOTE | 2020-12-06 11:26 | Occupational Ther Daily Note ---
OT Current Status-Daily Note Subjective Pt alert, lying in bed. Pt agrees to therapy. No c/o pain. Mental Status/Objective Patient Orientation: Person, Place, Time, Situation Attachments: Mejia Catheter, IV (midline), Oxygen (2L) ADL-Treatment 1st gvmeqnz-Au-glfuk with PT ([id number]), skills of 2 clinicians required due to increased SOA, decreased activity tolerance and need of skilled instruction and care for all mobility. PT focusing on mobility and transfers while OT focused on ADLs and hand placement during mobility. Pt agrees to shower. Pt requests to use BSC. Pt requires assist x2 to transfer to BSC then assist x2 to stand and cleanse after bowel movement. Supine to sitting EOB, min A. Assist x2 for SPT to shower chair with cutout. Transported to shower with chair. Pt completed shower after setup using hand held shower, grabbars, shower chair and long handle sponge. Pt able to reach all areas except buttocks. Pt takes increased time due to increased SOA and O2 levels. Assist x2 to transfer from shower chair to recliner. After session, pt sitting in recliner with call light/phone in reach. All needs met in room. Therapy Code Descriptions/Definitions Functional [place] Measure: 0=Not Assessed/NA 4=Minimal Assistance 1=Total Assistance 5=Supervision or Setup 2=Maximal Assistance 6=Modified [place] 3=Moderate Assistance 7=Complete IndependenceSCALE: Activities may be completed with or without assistive devices. 7-Igpmvjiqyp-mgakfxl completes the activity by him/herself with no assistance from a helper. 5-Set-up or Clean-up Assistance-helper sets up or cleans up; patient completes activity. [place] assists only prior to or following the activity. 4-Supervision or Touching Assistance-helper provides verbal cues and/or touching/steadying and/or contact guard assistance as patient completes activity. Assistance may be provided throughout the activity or intermittently. 3-Partial/Moderate Assistance-helper does LESS THAN HALF the effort. [place] lifts, holds or supports trunk or limbs, but provides less than half the effort. 2-Substantial/Maximal Assistance-helper does MORE THAN HALF the effort. [place] lifts or holds trunk or limbs and provides more than half the effort. 0-Disajrfoj-nlthes does ALL the effort. Patient does none of the effort to complete the activity. Or, the assistance of 2 or more helpers is required for the patient to complete the activity. If activity was not attempted, code reason: 7-Patient Refused. 9-Not Applicable-not attempted and the patient did not perform the activity before the current illness, exacerbation or injury. 10-Not Attempted due to Environmental Limitations-(lack of equipment, weather restraints, etc.). 88-Not Attempted due to Medical Conditions or Safety Concerns. Oral Hygiene (QC): 6 (Sitting at sink, pt complete oral care independently.) Bathing Location: L Arm, R Arm, L Upper Leg, R Upper Leg, L Lower Leg (inclu ding foot), R Lower Leg (including foot), Chest, Abdomen, Perineal Area Shower/Bathe Self (QC): 3 Lower Body Dressing (QC): 1 Toileting Hygiene (QC): 1 Toilet Transfer (QC): 1 Other Treatment 2nd session ([id number])Pt requests to be readjusted in recliner. Using sit to stand lift which pt assisted with positioning sling, pt stood for ~1 1/2 min though in a stooped position with head elevated. Pt repositioned and ointment applied to buttocks for skin protection. Pt able to complete 5-10 leaning forward from slight recline to increase core strength. After session, pt sitting in recliner with call light/phone in reach. All needs met in room. OT Short Term Goals Short Term Goals Time Frame: Dec 11, 2020 Shower/bathe self: 4 Upper body dressin Lower body dressin OT Reclaimer Goals Snf Goals Time Frame: Dec 20, 2020 Eating (QC): 6 Oral Hygiene (QC): 6 Toileting Hygiene (QC): 6 Shower/Bathe Self (QC): 6 Upper Body Dressing (QC): 6 Lower Body Dressing (QC): 6 On/Off Footwear (QC): 6 Additional Goals: 1-Demonstrate ADL Tasks, 2-Verbalize Understanding, 3-ImproveStrength/Leti 1=Demonstrate adherence to instructed precautions during ADL tasks. 2=Patient will verbalize/demonstrate understanding of assistive devices/modifications for ADL. 3=Patient will improve strength/tolerance for activity to enable patient to perform ADL's. OT Education/Plan Problem List/Assessment Assessment: Decreased Activ Tolerance, Decreased UE Strength, Dependent Transfers, Impaired Coordination, Impaired Funct Balance, Impaired Self-Care Skills Discharge Recommendations Plan/Recommendations: Continue POC Treatment Plan/Plan of Care Patient would benefit from OT for education, treatment and training to promote independence in ADL's, mobility, safety and/or upper extremity function for ADL's. Plan of Care: ADL Retraining, Functional Mobility, Group Exercise/Act as Ind, UE Funct Exercise/Act Treatment Duration: Dec 20, 2020 Frequency: Modified Program (IRF) Estimated Hrs Per Day: 1 hour per day Rehab Potential: Fair Time/GCodes Start Time: 09:00 ([id number]) Stop Time: 12:00 ([id number]) Total Time Billed (hr/min): 80 Billed Treatment Time 2 visits-ADL 4 (60 min) co-treat with PT ([id number]), FA 1 (20 min) individual ([id number]) VIOLET BACA Dec 06, 2020 11:26
--- NOTE | 2020-12-06 11:44 | PM&R Progress Note ---
Subjective HPI/CC On Admission Date Seen by Provider: Dec 06, 2020 Time Seen by Provider: 11:45 Subjective/Events-last exam 12/06/20/: Steady improvement Dr Pritchett Wednesday for toenail care Second sputum pending to get out of isolation BM today 12/05/20: BM today 2L/min BP low so will monitor closely Improved transfers Updated patient and his who was on the phone 12/04/20: Pt slept very well again Coughing up a little bit more sputum that does show MRSA and ESBL, will remain in isolation Valdes is back in Will have TURP on Wednesday, holding Eliquis on Wednesday Incontinence of bowels is noted Overall extremely improved 12/03/20: Discontinued catheter yesterday by Dr. 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 Up in chair today BM++ Good outlook O2 at 3L/min Increase O2 during therapies 11/29/20: No new issues Midline was placed now flushes maintained Much improved status Down to 1 L of oxygen Increased oxygen requirement with exercise Still with Valdes catheter in place Upright in wheelchair today Dramatic improvement 11/28/20: Slept a bit better Midline for Venofer will be placed Much improved status BSC today Valdes cath replaced 11/27/20: Pt remains on 1 liter per minute of oxygen Appears to be much improved today Cystoscope done today showing large prostate Proscar along with Flomax was initiated Cath was done and obtained 1000cc of urine Nystatin cream and powder will be initiated Overall much improved 11/26/20: Pt did not sleep last night due to urinary frequency Had to do straight in and out cath x4 last night Dr. Marsh will be updated Blood in the urine 1 liter of O2 now but will need a higher level when he is working out CT chest and ABG reviewed 11/25/20: ABG is pending from not being drawn yet CT of the chest will be performed, Dr. Schrader has been updated Bowels moved yesterday 11/24/20: Venofer IV started and I explained why I started that for him Will check CT scan of chest tomorrow and consult Dr Schrader Labs and ABG ordered as well Still very tachypneic with conversation and at rest Monitoring BP 2L/min 11/23/20: No orthostasis today Worked with PT OT BM++ O2 maintained 11/22/20: Hgb 8.6 today Feels better since IVF 500cc yesterday and changed cardiac meds by Dr Cisneros Justice guevara was born and he is thrilled about that Valdes cath still in place Fecal incontinence noted RT left him without O2 since he was good BRIEFLY on room air after Nebs for 1 hour and spot checked and he was at 85% and he was very short of breath just resting 11/21/20: Had episode of hypotension 76/40 with symptoms when got to edge of bed so laid back down, Cardiology notified and given 500cc of IVF Patient is on a waiver due to COVID and hypoxia for slow therapy and only 120 minutes per day Cardizem CD 120mg now after changed by Dr Cisneros ECHO done Stopped Lasix Valdes cath remains in place Review of Systems Pulmonary: Dyspnea, Cough Objective Exam Vital Signs Vital Signs Date Time Temp Pulse Resp B/P (MAP) Pulse Ox O2 Delivery O2 Flow Rate FiO2 12/07/20 05:23 37.0 90 18 109/73 (85) 95 Nasal Cannula 2.00 Capillary Refill : Less Than 3 Seconds General Appearance: No Apparent Distress, WD/WN, Chronically ill, Thin HEENT: PERRL/EOMI, Normal ENT Inspection, Pharynx Normal Neck: Full Range of Motion, Normal Inspection, Non Tender, Supple, Carotid Bruit Respiratory: Chest Non Tender, Lungs Clear, No Respiratory Distress, Accessory Muscle Use, Decreased Breath Sounds Cardiovascular: Regular Rate, Rhythm, No Edema, No Gallop, No JVD, No Murmur, Normal Peripheral Pulses Gastrointestinal: Normal Bowel Sounds, No Organomegaly, No Pulsatile Mass, Non Tender, Soft Back: Normal Inspection, No CVA Tenderness, No Vertebral Tenderness Extremity: Normal Capillary Refill, Normal Inspection, Normal Range of Motion, Non Tender, No Calf Tenderness, No Pedal Edema Neurologic/Psychiatric: Alert, Oriented x3, No Motor/Sensory Deficits, Normal Mood/Affect, Motor Weakness (generalized 2/5 lower extremities, 3/5 upper extremities) Skin: Normal Color, Warm/Dry Lymphatic: No Adenopathy Results/Procedures Lab Patient resulted labs reviewed. FIM Transfers Therapy Code Descriptions/Definitions Functional [place] Measure: 0=Not Assessed/NA 4=Minimal Assistance 1=Total Assistance 5=Supervision or Setup 2=Maximal Assistance 6=Modified [place] 3=Moderate Assistance 7=Complete IndependenceSCALE: Activities may be completed with or without assistive devices. 5-Pzgfpcaylw-kexkhkz completes the activity by him/herself with no assistance from a helper. 5-Set-up or Clean-up Assistance-helper sets up or cleans up; patient completes activity. [place] assists only prior to or following the activity. 4-Supervision or Touching Assistance-helper provides verbal cues and/or touching/steadying and/or contact guard assistance as patient completes activity. Assistance may be provided throughout the activity or intermittently. 3-Partial/Moderate Assistance-helper does LESS THAN HALF the effort. [place] lifts, holds or supports trunk or limbs, but provides less than half the effort. 2-Substantial/Maximal Assistance-helper does MORE THAN HALF the effort. [place] lifts or holds trunk or limbs and provides more than half the effort. 4-Eixpkqpgd-cjkeng does ALL the effort. Patient does none of the effort to complete the activity. Or, the assistance of 2 or more helpers is required for the patient to complete the activity. If activity was not attempted, code reason: 7-Patient Refused. 9-Not Applicable-not attempted and the patient did not perform the activity before the current illness, exacerbation or injury. 10-Not Attempted due to Environmental Limitations-(lack of equipment, weather restraints, etc.). 88-Not Attempted due to Medical Conditions or Safety Concerns. Roll Left to Right (QC): 6 Sit to Lying (QC): 4 Sit to Stand (QC): 3 Chair/Szf-ku-Fowct Xfer(QC): 3 Car Transfer (QC): 2 Gait Training Does the Patient Walk?: No and Walking Goal IS indicated Walk 10 feet (QC): 88 Walk 50 ft with 2 Turns(QC): 88 Walk 150 ft (QC): 88 Walking 10ft/uneven surface-QC: 88 Wheelchair Training Does the Pt Use a Wheelchair?: Yes Wheel 50 ft with 2 turns (QC): 4 Wheel 150 ft (QC): 4 Type of Wheelchair: Manual Stair Training 1 Step (curb) (QC): 88 4 Steps (QC): 88 12 Steps (QC): 88 Balance Picking up an Object (QC): 88 ADL-Treatment Eating (QC): 6 Oral Hygiene (QC): 6 (Sitting at sink, pt complete oral care independently.) Bathing Location: L Arm, R Arm, L Upper Leg, R Upper Leg, L Lower Leg (including foot), R Lower Leg (including foot), Chest, Abdomen, Perineal Area Shower/Bathe Self (QC): 3 Upper Body Dressing (QC): 5 Lower Body Dressing (QC): 1 On/Off Footwear (QC): 3 Toileting Hygiene (QC): 1 Toilet Transfer (QC): 1 Assessment/Plan Assessment and Plan Assess & Plan/Chief Complaint Assessment: Myopathy COVID-19 PNA Urinary retention Valdes cath in place Bowel incontinence Hypoxia O2 dependent BPH Frail Advanced age Plan: IRF protocol but 120 minutes per day to accommodate hypoxia at activity [place] meds Melatonin at night 11/21/20: s/o IVF Monitor hypotension and hypoxia Appreciate Dr Cisneros ECHO done Add Remeron for sleep with Melatonin 11/22/20: No possibility of weaning O2 for now with this patient so needs on 21/06 and will update RT Increase activity 11/23/20: Maintain O2 Nebs Monitor BP 11/24/20: Venofer Labs and ABG and CT chest in am Dr Schrader consultation Maintain O2 Very fragile lungs 11/25/20: CT chest ABG Dr Schrader consultation 11/26/20: Dr Schrader appreciated Dr Marsh appreciated 11/27/20: Dr Marsh appreciated Monitor O2 11/28/20: Valdes cath in place Midline Venofer 11/29/20: Midline flushes Venofer Monitor closely Dramatic improvement 11/30/20: Dramatic improvement continues Monitor closely Increase O2 with therapy 12/01/20: Bowel incontinence could complicate DC plans Monitor urinary retention closely 12/02/20: Manage B/B incontinence Improved status Labs good 12/03/20: Improved insomnia Continue treatment B/B incontinence 12/04/20: TURP next Wed OAC as of Wednesday Conferred with Dr Marsh and patient 12/05/20: Improved transfers Monitor closely O2 Incontinence management 12/06/20: Steady improvement TURP Wed Hold OAC as of Wednesday morning (1) Myopathy (2) COVID-19 (3) Hypoxia (4) Urinary retention (5) Valdes catheter in place (6) BPH (benign prostatic hyperplasia) (7) Bowel incontinence (8) Supplemental oxygen dependent (9) Advanced age (10) Frailty BARB COLLINS DO Dec 06, 2020 11:44
--- NOTE | 2020-12-06 12:55 | NUR ---
RETURN CALL FROM DR. TIERNEY'S OFFICE. DR. TIERNEY WILL SEE PATIENT SOMETIME EARLY NEXT WEEK.
--- NOTE | 2020-12-06 15:35 | NUR ---
CM/SS PATIENT CARE CONFERENCE Visited with patient who was much brighter today and engaging well. He reports he has been hospitalized since 09/24 and went from completely independent and doing any and all projects and tasks to being completely dependent. He understands the team has recommended reevaluation of progress next Wednesday, December 11. His goal is to be able to ambulate independently in his home regarding self care and to reduce caregiving burden to his Opal. They have 4 children but closest is about 40 miles away. He is hoping to wean from O2. Continue intermittent review and discharge planning.
[2020-12-06 18:31] VITALS: BP 93/53
--- NOTE | 2020-12-06 19:06 | NUR ---
bedside report received from SERENA ODELL, assume care of pt
[2020-12-06 20:50] VITALS: BP 104/69
[2020-12-06] MEDS: MELATONIN 10 MG TABLET PO SCH (20:52)
[2020-12-06] MEDS: MIRTAZAPINE 15 MG (REMERON) TAB PO SCH (20:52)
--- NOTE | 2020-12-06 20:52 | NUR ---
PT TOOK ALL MEDS WITH APPLESAUCE, B/P 104/69, REPOSITIONED UP IN BED & ON LT SIDE
[2020-12-07] MEDS: APAP 325 MG/10.15 ML LIQ (TYLENOL) UDC NG PRN (02:52)
--- NOTE | 2020-12-07 02:52 | NUR ---
temp 37.4 Tylenol 650mg liq given
--- NOTE | 2020-12-07 03:50 | NUR ---
temp 37.0
[2020-12-07 05:23] VITALS: BP 109/73
[2020-12-07] MEDS: CATHETER FLUSH 10 ML SYR IV SCH ×3 (06:25→22:45)
[2020-12-07] MEDS: predniSONE 10 MG TAB PO SCH (06:25)
--- NOTE | 2020-12-07 06:39 | PM&R Progress Note ---
Subjective HPI/CC On Admission Date Seen by Provider: Dec 07, 2020 Time Seen by Provider: 12:30 Subjective/Events-last exam 12/07/20: Second sputum done and pending BM incontinent Hold Eliquis tomorrow in prep for TURP 2L/min O2 maintained Sit to stand is helpful 12/06/20/: Steady improvement Dr Pritchett Wednesday for toenail care Second sputum pending to get out of isolation BM today 12/05/20: BM today 2L/min BP low so will monitor closely Improved transfers Updated patient and his who was on the phone 12/04/20: Pt slept very well again Coughing up a little bit more sputum that does show MRSA and ESBL, will remain in isolation Valdes is back in Will have TURP on Wednesday, holding Eliquis on Wednesday Incontinence of bowels is noted Overall extremely improved 12/03/20: Discontinued catheter yesterday by Dr. 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 Up in chair today BM++ Good outlook O2 at 3L/min Increase O2 during therapies 11/29/20: No new issues Midline was placed now flushes maintained Much improved status Down to 1 L of oxygen Increased oxygen requirement with exercise Still with Valdes catheter in place Upright in wheelchair today Dramatic improvement 11/28/20: Slept a bit better Midline for Venofer will be placed Much improved status BSC today Valdes cath replaced 11/27/20: Pt remains on 1 liter per minute of oxygen Appears to be much improved today Cystoscope done today showing large prostate Proscar along with Flomax was initiated Cath was done and obtained 1000cc of urine Nystatin cream and powder will be initiated Overall much improved 11/26/20: Pt did not sleep last night due to urinary frequency Had to do straight in and out cath x4 last night Dr. Marsh will be updated Blood in the urine 1 liter of O2 now but will need a higher level when he is working out CT chest and ABG reviewed 11/25/20: ABG is pending from not being drawn yet CT of the chest will be performed, Dr. Schrader has been updated Bowels moved yesterday 11/24/20: Venofer IV started and I explained why I started that for him Will check CT scan of chest tomorrow and consult Dr Schrader Labs and ABG ordered as well Still very tachypneic with conversation and at rest Monitoring BP 2L/min 11/23/20: No orthostasis today Worked with PT OT BM++ O2 maintained 11/22/20: Hgb 8.6 today Feels better since IVF 500cc yesterday and changed cardiac meds by Dr Cisneros [place] was born and he is thrilled about that Valdes cath still in place Fecal incontinence noted RT left him without O2 since he was good BRIEFLY on room air after Nebs for 1 hour and spot checked and he was at 85% and he was very short of breath just resting 11/21/20: Had episode of hypotension 76/40 with symptoms when got to edge of bed so laid back down, Cardiology notified and given 500cc of IVF Patient is on a waiver due to COVID and hypoxia for slow therapy and only 120 minutes per day Cardizem CD 120mg now after changed by Dr Cisneros ECHO done Stopped Lasix Valdes cath remains in place Review of Systems General: Fatigue, Malaise Pulmonary: Dyspnea Objective Exam Vital Signs Vital Signs Date Time Temp Pulse Resp B/P (MAP) Pulse Ox O2 Delivery O2 Flow Rate FiO2 12/08/20 07:39 92 Nasal Cannula 2.00 12/08/20 05:59 36.6 81 20 112/69 (83) Capillary Refill : Less Than 3 Seconds General Appearance: No Apparent Distress, WD/WN, Chronically ill, Thin HEENT: PERRL/EOMI, Normal ENT Inspection, Pharynx Normal Neck: Full Range of Motion, Normal Inspection, Non Tender, Supple, Carotid Bruit Respiratory: Chest Non Tender, Lungs Clear, No Respiratory Distress, Accessory Muscle Use, Decreased Breath Sounds Cardiovascular: Regular Rate, Rhythm, No Edema, No Gallop, No JVD, No Murmur, Normal Peripheral Pulses Gastrointestinal: Normal Bowel Sounds, No Organomegaly, No Pulsatile Mass, Non Tender, Soft Back: Normal Inspection, No CVA Tenderness, No Vertebral Tenderness Extremity: Normal Capillary Refill, Normal Inspection, Normal Range of Motion, Non Tender, No Calf Tenderness, No Pedal Edema Neurologic/Psychiatric: Alert, Oriented x3, No Motor/Sensory Deficits, Normal Mood/Affect, Motor Weakness (generalized 2/5 lower extremities, 3/5 upper extremities) Skin: Normal Color, Warm/Dry Lymphatic: No Adenopathy Results/Procedures Lab Patient resulted labs reviewed. FIM Transfers Therapy Code Descriptions/Definitions Functional Pierz Measure: 0=Not Assessed/NA 4=Minimal Assistance 1=Total Assistance 5=Supervision or Setup 2=Maximal Assistance 6=Modified Pierz 3=Moderate Assistance 7=Complete IndependenceSCALE: Activities may be completed with or without assistive devices. 9-Tgjblvugfk-lnzpgjw completes the activity by him/herself with no assistance from a helper. 5-Set-up or Clean-up Assistance-helper sets up or cleans up; patient completes activity. Paulina assists only prior to or following the activity. 4-Supervision or Touching Assistance-helper provides verbal cues and/or touc roger/steadying and/or contact guard assistance as patient completes activity. Assistance may be provided throughout the activity or intermittently. 3-Partial/Moderate Assistance-helper does LESS THAN HALF the effort. Paulina lifts, holds or supports trunk or limbs, but provides less than half the effort. 2-Substantial/Maximal Assistance-helper does MORE THAN HALF the effort. Paulina lifts or holds trunk or limbs and provides more than half the effort. 3-Epvvuxkoe-bmyvak does ALL the effort. Patient does none of the effort to complete the activity. Or, the assistance of 2 or more helpers is required for the patient to complete the activity. If activity was not attempted, code reason: 7-Patient Refused. 9-Not Applicable-not attempted and the patient did not perform the activity before the current illness, exacerbation or injury. 10-Not Attempted due to Environmental Limitations-(lack of equipment, weather restraints, etc.). 88-Not Attempted due to Medical Conditions or Safety Concerns. Roll Left to Right (QC): 6 Sit to Lying (QC): 4 Sit to Stand (QC): 3 Chair/Gdl-wy-Pgxnc Xfer(QC): 3 Car Transfer (QC): 2 Gait Training Does the Patient Walk?: No and Walking Goal IS indicated Walk 10 feet (QC): 88 Walk 50 ft with 2 Turns(QC): 88 Walk 150 ft (QC): 88 Walking 10ft/uneven surface-QC: 88 Wheelchair Training Does the Pt Use a Wheelchair?: Yes Wheel 50 ft with 2 turns (QC): 4 Wheel 150 ft (QC): 4 Type of Wheelchair: Manual Stair Training 1 Step (curb) (QC): 88 4 Steps (QC): 88 12 Steps (QC): 88 Balance Picking up an Object (QC): 88 ADL-Treatment Eating (QC): 6 Oral Hygiene (QC): 6 (Sitting at sink, pt complete oral care independently.) Bathing Location: L Arm, R Arm, L Upper Leg, R Upper Leg, L Lower Leg (including foot), R Lower Leg (including foot), Chest, Abdomen, Perineal Area Shower/Bathe Self (QC): 3 Upper Body Dressing (QC): 5 Lower Body Dressing (QC): 1 On/Off Footwear (QC): 3 Toileting Hygiene (QC): 1 Toilet Transfer (QC): 1 Assessment/Plan Assessment and Plan Assess & Plan/Chief Complaint Assessment: Myopathy COVID-19 PNA Urinary retention Valdes cath in place Bowel incontinence Hypoxia O2 dependent BPH Frail Advanced age Plan: IRF protocol but 120 minutes per day to accommodate hypoxia at activity Fernando Salinas meds Melatonin at night 11/21/20: s/o IVF Monitor hypotension and hypoxia Appreciate Dr Cisneros ECHO done Add Remeron for sleep with Melatonin 11/22/20: No possibility of weaning O2 for now with this patient so needs on 21/06 and will update RT Increase activity 11/23/20: Maintain O2 Nebs Monitor BP 11/24/20: Venofer Labs and ABG and CT chest in am Dr Schrader consultation Maintain O2 Very fragile lungs 11/25/20: CT chest ABG Dr Schrader consultation 11/26/20: Dr Schrader appreciated Dr Marsh appreciated 11/27/20: Dr Marsh appreciated Monitor O2 11/28/20: Valdes cath in place Midline Venofer 11/29/20: Midline flushes Venofer Monitor closely Dramatic improvement 11/30/20: Dramatic improvement continues Monitor closely Increase O2 with therapy 12/01/20: Bowel incontinence could complicate DC plans Monitor urinary retention closely 12/02/20: Manage B/B incontinence Improved status Labs good 12/03/20: Improved insomnia Continue treatment B/B incontinence 12/04/20: TURP next Wed Hold OAC as of Wednesday Conferred with Dr Marsh and patient 12/05/20: Improved transfers Monitor closely O2 Incontinence management 12/06/20: Steady improvement TURP Wed Hold OAC as of Wednesday morning 12/07/20: Await second sputum Monitor closely O2 BM (1) Myopathy (2) COVID-19 (3) Hypoxia (4) Urinary retention (5) Valdes catheter in place (6) BPH (benign prostatic hyperplasia) (7) Bowel incontinence (8) Supplemental oxygen dependent (9) Advanced age (10) Frailty BARB COLLINS DO Dec 07, 2020 06:38
--- NOTE | 2020-12-07 10:14 | Physical Therapy Daily Note ---
PT Daily Note-Current Subjective Pt. agrees to Rx, wants out of bed and on BSC then up in recliner. Pain Location: No Pain Reported Mental Status Patient Orientation: Normal For Age Attachments: Oxygen, Mejia Catheter Transfers SCALE: Activities may be completed with or without assistive devices. 6-Rwbkroexlx-byzxxup completes the activity by him/herself with no assistance from a helper. 5-Set-up or Clean-up Assistance-helper sets up or cleans up; patient completes activity. Godley assists only prior to or following the activity. 4-Supervision or Touching Assistance-helper provides verbal cues and/or touching/steadying and/or contact guard assistance as patient completes activity. Assistance may be provided throughout the activity or intermittently. 3-Partial/Moderate Assistance-helper does LESS THAN HALF the effort. Godley lift s, holds or supports trunk or limbs, but provides less than half the effort. 2-Substantial/Maximal Assistance-helper does MORE THAN HALF the effort. Godley lifts or holds trunk or limbs and provides more than half the effort. 5-Ogthswndk-bxcwmu does ALL the effort. Patient does none of the effort to complete the activity. Or, the assistance of 2 or more helpers is required for the patient to complete the activity. If activity was not attempted, code reason: 7-Patient Refused. 9-Not Applicable-not attempted and the patient did not perform the activity before the current illness, exacerbation or injury. 10-Not Attempted due to Environmental Limitations-(lack of equipment, weather restraints, etc.). 88-Not Attempted due to Medical Conditions or Safety Concerns. pushed self up in flat bed using rails and LEs in hooklying position, needed min to mod assist sup to side to sit in flat bed, sit to stand with Liko with pt. noted to use LEs more and more Weight Bearing Full Weight Bearing Full Weight Bearing Exercises Supine Ex: Bridging, Ankle pumps, Quad Set, Rolling, Glut sets, Heel Slides, Short Arc Quads, Scooting, Straight leg raise (x7 ea), Hip abd/add Supine Reps: 13 Seated Therapy Exercises: Sit to stand (with LIKO but increased use of LEs and alignment) Treatments toileted on BSC , max assist for clean up and TRF to recliner Assessment Current Status: Good Progress gives full effort , progressing well PT Short Term Goals Short Term Goals Time Frame: Nov 27, 2020 Roll Left & Right: 3 Sit to lyin Lying to sitting on side of be: 3 Sit to stand: 3 Chair/pge-up-kozth transfer: 3 Walk 10 feet: 3 PT Senior Geotechnical Engineer Goals Care Home Goals PT Care Home Goals Time Frame: Dec 11, 2020 Roll Left & Right (QC): 4 Sit to Lying (QC): 4 Lying-Sitting on Side/Bed(QC): 4 Sit to Stand (QC): 4 Chair/Ilj-wm-Ovywk Xfer(QC): 4 Toilet Transfer (QC): 4 Car Transfer (QC): 3 Does the Patient Walk: Yes Walk 10 feet (QC): 3 Walk 50ft with 2 Turns (QC): 3 Walk 150 ft (QC): 88 Walking 10ft on Uneven Surface: 3 1 Step (curb) (QC): 3 4 Steps (QC): 88 12 Steps (QC): 88 Picking up an Object (QC): 88 Wheel 50 feet with 2 turns (QC: 6 Wheel 150 feet: 6 PT Plan Treatment/Plan Treatment Plan: Continue Plan of Care Treatment Plan: Bed Mobility, Education, Functional Activity Leti, Functional Strength, Group Therapy, Gait, Safety, Therapeutic Exercise, Transfers Treatment Duration: Dec 11, 2020 Frequency: Modified Program (IRF) Estimated Hrs Per Day: 1 hour per day Patient and/or Family Agrees t: Yes Safety Risks/Education Patient Education: Transfer Techniques, Correct Positioning, Disease Process, Safety Issues Teaching Recipient: Patient Teaching Methods: Demonstration, Discussion Response to Teaching: Verbalize Understanding, Return Demonstration, Reinforcement Needed Time/GCodes Time In: 950 Time Out: 1015 Total Billed Treatment Time: 25 Total Billed Treatment 1,FA13,EX12 ESSENCE ARRIAZA ELECT[employer]IC SIGN WIRER Dec 07, 2020 10:14
[2020-12-07 10:17] VITALS: BP 103/55
[2020-12-07] MEDS: LACTOBACILLUS ACIDOPHILUS (PROBIOTIC) CAPSULE PO SCH ×2 (10:18→21:20)
[2020-12-07] MEDS: CYANOCOBALAMIN 1,000 MCG (VITAMIN B-12) TABLET NG SCH (10:18)
[2020-12-07] MEDS: APIXABAN 5 MG (ELIQUIS) TABLET PO SCH ×2 (10:18→21:19)
[2020-12-07] MEDS: TAMSULOSIN 0.4 MG (FLOMAX) CAP PO SCH ×2 (10:18→21:20)
[2020-12-07] MEDS: ROFLUMILAST 500 MCG TAB (DALIRESP) NG SCH (10:19)
[2020-12-07] MEDS: FINASTERIDE (PROSCAR) 5 MG TAB PO SCH (10:20)
[2020-12-07] MEDS: LORATADINE (CLARITIN) 10 MG TAB PO SCH (10:20)
[2020-12-07] MEDS: PANTOPRAZOLE 40 MG (PROTONIX) TAB PO SCH (10:20)
[2020-12-07] MEDS: FOLIC ACID 1 MG TAB PO SCH (10:20)
[2020-12-07] MEDS: MONTELUKAST 10 MG (SINGULAIR) TAB PO SCH (10:20)
[2020-12-07] MEDS: meTOprolol TARTRATE 25 MG (LOPRESSOR) TABLET PO SCH ×2 (10:20→21:20)
[2020-12-07] MEDS: polyethylene glycoL POWDER 17 GM (MIRALAX) PACK PO SCH ×2 (10:21→21:20)
[2020-12-07] MEDS: SENNA W/DOCUSATE (SENOKOT S) TABLET PO SCH ×2 (10:22→21:20)
[2020-12-07] MEDS: DOCUSATE SODIUM 100 MG (COLACE) CAP PO SCH ×2 (10:22→21:20)
[2020-12-07] MEDS: NYSTATIN CREAM (MYCOSTATIN) 30 GM TUBE TP SCH ×3 (10:23→21:22)
[2020-12-07] MEDS: MICONAZOLE 2% POWDER (DESENEX AF) 90 GM TOP SCH ×2 (10:23→21:21)
[2020-12-07] MEDS: ADVAIR HFA 115/21 MCG INHALER 8 GM IH SCH ×2 (10:30→23:42)
[2020-12-07] MEDS: RT-ALBUTEROL/IPRATROPIUM 3 ML (DUONEB) VIAL IH SCH ×2 (10:31→23:42)
[2020-12-07 17:14] VITALS: BP 102/63
--- NOTE | 2020-12-07 19:04 | NUR ---
Bedside report received from RAUL ODELL, assume care of pt
[2020-12-07 21:15] VITALS: BP 117/71
[2020-12-07] MEDS: MIRTAZAPINE 15 MG (REMERON) TAB PO SCH (21:20)
[2020-12-07] MEDS: MELATONIN 10 MG TABLET PO SCH (21:20)
--- NOTE | 2020-12-07 21:22 | NUR ---
Pt took all meds with miralax one at a time & did well, repositioned on side
[2020-12-08] MEDS: CATHETER FLUSH 10 ML SYR IV SCH ×3 (05:42→22:15)
[2020-12-08] MEDS: predniSONE 10 MG TAB PO SCH (05:43)
[2020-12-08 05:59] VITALS: BP 112/69
[2020-12-08] MEDS: ADVAIR HFA 115/21 MCG INHALER 8 GM IH SCH ×2 (07:39→20:23)
[2020-12-08] MEDS: RT-ALBUTEROL/IPRATROPIUM 3 ML (DUONEB) VIAL IH SCH ×2 (07:39→20:21)
--- NOTE | 2020-12-08 09:00 | NUR ---
STATES FEELS "IMPACTED" - ONLY HAVING SMALL BM'S. MEDICATED WITH SCHEDULED LAXATIVES. VERY PLEASANT AND COOPERATIVE. CHECKED WITH MICROBIOLOGY. THEY STATE CULTURES HAVE BEEN SENT OUT AND URINE FROM 12-03-20 WAS POSITIVE FOR MRSA AND LOOKS PROBABLE THAT 12-06-20 IS ALSO. WILL REMAIN IN DROPLET ISOLATION. PATIENT AWARE OF PLAN FOR TURP ON WEDNESDAY.
[2020-12-08] MEDS: FOLIC ACID 1 MG TAB PO SCH (09:16)
[2020-12-08] MEDS: ROFLUMILAST 500 MCG TAB (DALIRESP) NG SCH (09:16)
[2020-12-08] MEDS: LACTOBACILLUS ACIDOPHILUS (PROBIOTIC) CAPSULE PO SCH ×2 (09:16→20:49)
[2020-12-08] MEDS: SENNA W/DOCUSATE (SENOKOT S) TABLET PO SCH ×2 (09:17→20:49)
[2020-12-08] MEDS: TAMSULOSIN 0.4 MG (FLOMAX) CAP PO SCH ×2 (09:17→20:49)
[2020-12-08] MEDS: DOCUSATE SODIUM 100 MG (COLACE) CAP PO SCH ×2 (09:17→20:48)
[2020-12-08] MEDS: CYANOCOBALAMIN 1,000 MCG (VITAMIN B-12) TABLET NG SCH (09:18)
[2020-12-08] MEDS: FINASTERIDE (PROSCAR) 5 MG TAB PO SCH (09:18)
[2020-12-08] MEDS: PANTOPRAZOLE 40 MG (PROTONIX) TAB PO SCH (09:18)
[2020-12-08] MEDS: LORATADINE (CLARITIN) 10 MG TAB PO SCH (09:19)
[2020-12-08] MEDS: MICONAZOLE 2% POWDER (DESENEX AF) 90 GM TOP SCH ×2 (09:25→20:53)
[2020-12-08] MEDS: NYSTATIN CREAM (MYCOSTATIN) 30 GM TUBE TP SCH ×3 (09:25→20:53)
[2020-12-08] MEDS: polyethylene glycoL POWDER 17 GM (MIRALAX) PACK PO SCH ×2 (09:33→20:48)
[2020-12-08] MEDS: MONTELUKAST 10 MG (SINGULAIR) TAB PO SCH (09:33)
[2020-12-08 11:56] VITALS: BP 101/64
[2020-12-08] MEDS: meTOprolol TARTRATE 25 MG (LOPRESSOR) TABLET PO SCH ×2 (11:58→20:49)
--- NOTE | 2020-12-08 13:07 | PM&R Progress Note ---
Subjective HPI/CC On Admission Date Seen by Provider: Dec 08, 2020 Time Seen by Provider: 13:00 Subjective/Events-last exam 12/08/20: MRSA of sputum still present TURP Wed Holding OAC now for surgery Standing a bit on his own with sit to stand 12/07/20: Second sputum done and pending BM incontinent Hold Eliquis tomorrow in prep for TURP 2L/min O2 maintained Sit to stand is helpful 12/06/20/: Steady improvement Dr Pritchett Wednesday for toenail care Second sputum pending to get out of isolation BM today 12/05/20: BM today 2L/min BP low so will monitor closely Improved transfers Updated patient and his who was on the phone 12/04/20: Pt slept very well again Coughing up a little bit more sputum that does show MRSA and ESBL, will remain in isolation Valdes is back in Will have TURP on Wednesday, holding Eliquis on Wednesday Incontinence of bowels is noted Overall extremely improved 12/03/20: Discontinued catheter yesterday by Dr. 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 Up in chair today BM++ Good outlook O2 at 3L/min Increase O2 during therapies 11/29/20: No new issues Midline was placed now flushes maintained Much improved status Down to 1 L of oxygen Increased oxygen requirement with exercise Still with Valdes catheter in place Upright in wheelchair today Dramatic improvement 11/28/20: Slept a bit better Midline for Venofer will be placed Much improved status BSC today Valdes cath replaced 11/27/20: Pt remains on 1 liter per minute of oxygen Appears to be much improved today Cystoscope done today showing large prostate Proscar along with Flomax was initiated Cath was done and obtained 1000cc of urine Nystatin cream and powder will be initiated Overall much improved 11/26/20: Pt did not sleep last night due to urinary frequency Had to do straight in and out cath x4 last night Dr. Marsh will be updated Blood in the urine 1 liter of O2 now but will need a higher level when he is working out CT chest and ABG reviewed 11/25/20: ABG is pending from not being drawn yet CT of the chest will be performed, Dr. Schrader has been updated Bowels moved yesterday 11/24/20: Venofer IV started and I explained why I started that for him Will check CT scan of chest tomorrow and consult Dr Schrader Labs and ABG ordered as well Still very tachypneic with conversation and at rest Monitoring BP 2L/min 11/23/20: No orthostasis today Worked with PT OT BM++ O2 maintained 11/22/20: Hgb 8.6 today Feels better since IVF 500cc yesterday and changed cardiac meds by Dr Cisneros [place] was born and he is thrilled about that Valdes cath still in place Fecal incontinence noted RT left him without O2 since he was good BRIEFLY on room air after Nebs for 1 hour and spot checked and he was at 85% and he was very short of breath just resting 11/21/20: Had episode of hypotension 76/40 with symptoms when got to edge of bed so laid back down, Cardiology notified and given 500cc of IVF Patient is on a waiver due to COVID and hypoxia for slow therapy and only 120 minutes per day Cardizem CD 120mg now after changed by Dr Cisneros ECHO done Stopped Lasix Valdes cath remains in place Review of Systems General: Fatigue, Malaise Pulmonary: Dyspnea Neurological: Weakness, Incoordination Objective Exam Vital Signs Vital Signs Date Time Temp Pulse Resp B/P (MAP) Pulse Ox O2 Delivery O2 Flow Rate FiO2 12/08/20 17:28 36.6 85 18 114/69 (84) 100 Nasal Cannula 2.00 Capillary Refill : Less Than 3 Seconds General Appearance: No Apparent Distress, WD/WN, Chronically ill, Thin HEENT: PERRL/EOMI, Normal ENT Inspection, Pharynx Normal Neck: Full Range of Motion, Normal Inspection, Non Tender, Supple, Carotid Bruit Respiratory: Chest Non Tender, Lungs Clear, No Respiratory Distress, Accessory Muscle Use, Decreased Breath Sounds Cardiovascular: Regular Rate, Rhythm, No Edema, No Gallop, No JVD, No Murmur, Normal Peripheral Pulses Gastrointestinal: Normal Bowel Sounds, No Organomegaly, No Pulsatile Mass, Non Tender, Soft Back: Normal Inspection, No CVA Tenderness, No Vertebral Tenderness Extremity: Normal Capillary Refill, Normal Inspection, Normal Range of Motion, Non Tender, No Calf Tenderness, No Pedal Edema Neurologic/Psychiatric: Alert, Oriented x3, No Motor/Sensory Deficits, Normal Mood/Affect, Motor Weakness (generalized 2/5 lower extremities, 3/5 upper extremities) Skin: Normal Color, Warm/Dry Lymphatic: No Adenopathy Results/Procedures Lab Patient resulted labs reviewed. FIM Transfers Therapy Code Descriptions/Definitions Functional [place] Measure: 0=Not Assessed/NA 4=Minimal Assistance 1=Total Assistance 5=Supervision or Setup 2=Maximal Assistance 6=Modified [place] 3=Moderate Assistance 7=Complete IndependenceSCALE: Activities may be completed with or without assistive devices. 0-Axexuqljuu-vpuqrvj completes the activity by him/herself with no assistance from a helper. 5-Set-up or Clean-up Assistance-helper sets up or cleans up; patient completes activity. [place] assists only prior to or following the activity. 4-Supervision or Touching Assistance-helper provides verbal cues and/or touching/steadying and/or contact guard assistance as patient completes activity. Assistance may be provided throughout the activity or intermittently. 3-Partial/Moderate Assistance-helper does LESS THAN HALF the effort. [place] lifts, holds or supports trunk or limbs, but provides less than half the effort. 2-Substantial/Maximal Assistance-helper does MORE THAN HALF the effort. [place] lifts or holds trunk or limbs and provides more than half the effort. 0-Bylmmtwpm-cfhdof does ALL the effort. Patient does none of the effort to complete the activity. Or, the assistance of 2 or more helpers is required for the patient to complete the activity. If activity was not attempted, code reason: 7-Patient Refused. 9-Not Applicable-not attempted and the patient did not perform the activity before the current illness, exacerbation or injury. 10-Not Attempted due to Environmental Limitations-(lack of equipment, weather restraints, etc.). 88-Not Attempted due to Medical Conditions or Safety Concerns. Roll Left to Right (QC): 6 Sit to Lying (QC): 4 Sit to Stand (QC): 3 Chair/Mpz-qf-Hzypt Xfer(QC): 3 Car Transfer (QC): 2 Gait Training Does the Patient Walk?: No and Walking Goal IS indicated Walk 10 feet (QC): 88 Walk 50 ft with 2 Turns(QC): 88 Walk 150 ft (QC): 88 Walking 10ft/uneven surface-QC: 88 Wheelchair Training Does the Pt Use a Wheelchair?: Yes Wheel 50 ft with 2 turns (QC): 4 Wheel 150 ft (QC): 4 Type of Wheelchair: Manual Stair Training 1 Step (curb) (QC): 88 4 Steps (QC): 88 12 Steps (QC): 88 Balance Picking up an Object (QC): 88 ADL-Treatment Eating (QC): 6 Oral Hygiene (QC): 6 (Sitting at sink, pt complete oral care independently.) Bathing Location: L Arm, R Arm, L Upper Leg, R Upper Leg, L Lower Leg (including foot), R Lower Leg (including foot), Chest, Abdomen, Perineal Area Shower/Bathe Self (QC): 3 Upper Body Dressing (QC): 5 Lower Body Dressing (QC): 1 On/Off Footwear (QC): 3 Toileting Hygiene (QC): 1 Toilet Transfer (QC): 1 Assessment/Plan Assessment and Plan Assess & Plan/Chief Complaint Assessment: Myopathy COVID-19 PNA Urinary retention Valdes cath in place Bowel incontinence Hypoxia O2 dependent BPH Frail Advanced age Sputum colonized with MRSA and ESBL Plan: IRF protocol but 120 minutes per day to accommodate hypoxia at activity [place] meds Melatonin at night 11/21/20: s/o IVF Monitor hypotension and hypoxia Appreciate Dr Cisneros ECHO done Add Remeron for sleep with Melatonin 11/22/20: No possibility of weaning O2 for now with this patient so needs on 21/06 and will update RT Increase activity 11/23/20: Maintain O2 Nebs Monitor BP 11/24/20: Venofer Labs and ABG and CT chest in am Dr Schrader consultation Maintain O2 Very fragile lungs 11/25/20: CT chest ABG Dr Schrader consultation 11/26/20: Dr Schrader appreciated Dr Marsh appreciated 11/27/20: Dr Marsh appreciated Monitor O2 11/28/20: Valdes cath in place Midline Venofer 11/29/20: Midline flushes Venofer Monitor closely Dramatic improvement 11/30/20: Dramatic improvement continues Monitor closely Increase O2 with therapy 12/01/20: Bowel incontinence could complicate DC plans Monitor urinary retention closely 12/02/20: Manage B/B incontinence Improved status Labs good 12/03/20: Improved insomnia Continue treatment B/B incontinence 12/04/20: TURP next Wed Hold OAC as of Wednesday Conferred with Dr Marsh and patient 12/05/20: Improved transfers Monitor closely O2 Incontinence management 12/06/20: Steady improvement TURP Wed Hold OAC as of Wednesday morning 12/07/20: Await second sputum Monitor closely O2 BM 12/08/20: TURP Wed Hold OAC Monitor closely Labs in am (1) Myopathy (2) COVID-19 (3) Hypoxia (4) Urinary retention (5) Valdes catheter in place (6) BPH (benign prostatic hyperplasia) (7) Bowel incontinence (8) Supplemental oxygen dependent (9) Advanced age (10) Frailty BARB COLLINS DO Dec 08, 2020 13:07
[2020-12-08] MEDS: BISACODYL 10 MG SUPP (DULCOLAX) PR PRN (13:27)
--- NOTE | 2020-12-08 15:00 | NUR ---
WAS MEDICATED WITH DULCOLAX SUPPOSITORY AND EXCELLENT RESULTS. UP TO CHAIR PER [id number]. STATES IS ABLE TO BEAR SOME WEIGHT ON LEGS NOW.
--- NOTE | 2020-12-08 16:00 | NUR ---
DR. MA HERE TO SEE PATIENT. PLAN CONTINUES TO BE FOR TURP ON WEDNESDAY.
--- NOTE | 2020-12-08 16:25 | Progress Note - Urology ---
Progress Note-Urology Progress Notes/Assess & Plan Progress/Assessment & Plan ELIQUIS HELD FROM TODAY. OR WEDNESDAY Final Diagnosis URINE RETENTION DENTON MA MD Dec 08, 2020 16:25
[2020-12-08 17:28] VITALS: BP 114/69
--- NOTE | 2020-12-08 19:05 | NUR ---
Bedside report received from MEG ODELL, assume care of pt
[2020-12-08 20:45] VITALS: BP 111/60
[2020-12-08] MEDS: MELATONIN 10 MG TABLET PO SCH (20:49)
[2020-12-08] MEDS: MIRTAZAPINE 15 MG (REMERON) TAB PO SCH (20:49)
--- NOTE | 2020-12-08 20:49 | NUR ---
Pt took all meds one pill at a time with water & had no difficulties
[2020-12-09] MEDS: CATHETER FLUSH 10 ML SYR IV SCH ×3 (05:05→21:33)
[2020-12-09 05:39] LABS: BASOPHILS # (AUTO) 0.1 10^3/uL (0.0-0.1); BASOPHILS % (AUTO) 1 % (0-10); EOSINOPHILS % (AUTO) 0 % (0-10); HEMATOCRIT 29 % (40-54); HEMOGLOBIN 8.7 g/dL (13.3-17.7); LYMPHOCYTES % (AUTO) 24 % (12-44); MEAN CORPUSCULAR HEMOGLOBIN 29 pg (25-34); MEAN CORPUSCULAR HGB CONC 30 g/dL (32-36); MEAN CORPUSCULAR VOLUME 94 fL (80-99); MONOCYTES # (AUTO) 0.6 10^3/uL (0.0-1.0); MONOCYTES % (AUTO) 7 % (0-12); NEUTROPHILS # (AUTO) 5.5 10^3/uL (1.8-7.8); NEUTROPHILS % (AUTO) 67 % (42-75); PLATELET COUNT 250 10^3/uL (130-400); WHITE BLOOD COUNT 8.3 10^3/uL (4.3-11.0)
[2020-12-09 05:43] VITALS: BP 96/62
[2020-12-09 05:52] LABS: ALBUMIN 2.7 GM/DL (3.2-4.5); CHLORIDE 105 MMOL/L (98-107); POTASSIUM 4.2 MMOL/L (3.6-5.0); SODIUM 138 MMOL/L (135-145)
[2020-12-09 05:53] LABS: CALCIUM 8.5 MG/DL (8.5-10.1)
[2020-12-09 05:54] LABS: GLUCOSE 109 MG/DL (70-105); TOTAL PROTEIN 5.3 GM/DL (6.4-8.2)
--- NOTE | 2020-12-09 05:54 | PM&R Progress Note ---
Subjective HPI/CC On Admission Date Seen by Provider: Dec 09, 2020 Time Seen by Provider: 08:30 Subjective/Events-last exam 12/09/20: Bowels moved after suppository yesterday Holding anticoagulation for TURP Hgb 8.7 s/p five doses of Venofer Overall feels pretty good 12/08/20: MRSA of sputum still present TURP Wed Holding OAC now for surgery Standing a bit on his own with sit to stand 12/07/20: Second sputum done and pending BM incontinent Hold Eliquis tomorrow in prep for TURP 2L/min O2 maintained Sit to stand is helpful 12/06/20/: Steady improvement Dr Pritchett Wednesday for toenail care Second sputum pending to get out of isolation BM today 12/05/20: BM today 2L/min BP low so will monitor closely Improved transfers Updated patient and his who was on the phone 12/04/20: Pt slept very well again Coughing up a little bit more sputum that does show MRSA and ESBL, will remain in isolation Valdes is back in Will have TURP on Wednesday, holding Eliquis on Wednesday Incontinence of bowels is noted Overall extremely improved 12/03/20: Discontinued catheter yesterday by Dr. 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 Up in chair today BM++ Good outlook O2 at 3L/min Increase O2 during therapies 11/29/20: No new issues Midline was placed now flushes maintained Much improved status Down to 1 L of oxygen Increased oxygen requirement with exercise Still with Valdes catheter in place Upright in wheelchair today Dramatic improvement 11/28/20: Slept a bit better Midline for Venofer will be placed Much improved status BSC today Valdes cath replaced 11/27/20: Pt remains on 1 liter per minute of oxygen Appears to be much improved today Cystoscope done today showing large prostate Proscar along with Flomax was initiated Cath was done and obtained 1000cc of urine Nystatin cream and powder will be initiated Overall much improved 11/26/20: Pt did not sleep last night due to urinary frequency Had to do straight in and out cath x4 last night Dr. Marsh will be updated Blood in the urine 1 liter of O2 now but will need a higher level when he is working out CT chest and ABG reviewed 11/25/20: ABG is pending from not being drawn yet CT of the chest will be performed, Dr. Schrader has been updated Bowels moved yesterday 11/24/20: Venofer IV started and I explained why I started that for him Will check CT scan of chest tomorrow and consult Dr Schrader Labs and ABG ordered as well Still very tachypneic with conversation and at rest Monitoring BP 2L/min 11/23/20: No orthostasis today Worked with PT OT BM++ O2 maintained 11/22/20: Hgb 8.6 today Feels better since IVF 500cc yesterday and changed cardiac meds by Dr Cisneros [place] was born and he is thrilled about that Valdes cath still in place Fecal incontinence noted RT left him without O2 since he was good BRIEFLY on room air after Nebs for 1 hour and spot checked and he was at 85% and he was very short of breath just resting 11/21/20: Had episode of hypotension 76/40 with symptoms when got to edge of bed so laid back down, Cardiology notified and given 500cc of IVF Patient is on a waiver due to COVID and hypoxia for slow therapy and only 120 minutes per day Cardizem CD 120mg now after changed by Dr Cisneros ECHO done Stopped Lasix Valdes cath remains in place Review of Systems General: Fatigue, Malaise Neurological: Weakness, Incoordination Objective Exam Vital Signs Vital Signs Date Time Temp Pulse Resp B/P (MAP) Pulse Ox O2 Delivery O2 Flow Rate FiO2 12/09/20 18:49 93 Nasal Cannula 2.00 12/09/20 17:17 36.5 88 18 97/59 (72) Capillary Refill : Less Than 3 Seconds General Appearance: No Apparent Distress, WD/WN, Chronically ill, Thin HEENT: PERRL/EOMI, Normal ENT Inspection, Pharynx Normal Neck: Full Range of Motion, Normal Inspection, Non Tender, Supple, Carotid Bruit Respiratory: Chest Non Tender, Lungs Clear, No Respiratory Distress, Accessory Muscle Use, Decreased Breath Sounds Cardiovascular: Regular Rate, Rhythm, No Edema, No Gallop, No JVD, No Murmur, Normal Peripheral Pulses Gastrointestinal: Normal Bowel Sounds, No Organomegaly, No Pulsatile Mass, Non Tender, Soft Back: Normal Inspection, No CVA Tenderness, No Vertebral Tenderness Extremity: Normal Capillary Refill, Normal Inspection, Normal Range of Motion, Non Tender, No Calf Tenderness, No Pedal Edema Neurologic/Psychiatric: Alert, Oriented x3, No Motor/Sensory Deficits, Normal Mood/Affect, Motor Weakness (generalized 2/5 lower extremities, 3/5 upper extremities) Skin: Normal Color, Warm/Dry Lymphatic: No Adenopathy Results/Procedures Lab Laboratory Tests 12/09/20 05:00 Patient resulted labs reviewed. FIM Transfers Therapy Code Descriptions/Definitions Functional [place] Measure: 0=Not Assessed/NA 4=Minimal Assistance 1=Total Assistance 5=Supervision or Setup 2=Maximal Assistance 6=Modified [place] 3=Moderate Assistance 7=Complete IndependenceSCALE: Activities may be completed with or without assistive devices. 0-Tglfwizxyz-betbikp completes the activity by him/herself with no assistance from a helper. 5-Set-up or Clean-up Assistance-helper sets up or cleans up; patient completes activity. [place] assists only prior to or following the activity. 4-Supervision or Touching Assistance-helper provides verbal cues and/or touching/steadying and/or contact guard assistance as patient completes activity. Assistance may be provided throughout the activity or intermittently. 3-Partial/Moderate Assistance-helper does LESS THAN HALF the effort. [place] lifts, holds or supports trunk or limbs, but provides less than half the effort. 2-Substantial/Maximal Assistance-helper does MORE THAN HALF the effort. [place] lifts or holds trunk or limbs and provides more than half the effort. 6-Rjsftosov-qyfury does ALL the effort. Patient does none of the effort to complete the activity. Or, the assistance of 2 or more helpers is required for the patient to complete the activity. If activity was not attempted, code reason: 7-Patient Refused. 9-Not Applicable-not attempted and the patient did not perform the activity before the current illness, exacerbation or injury. 10-Not Attempted due to Environmental Limitations-(lack of equipment, weather restraints, etc.). 88-Not Attempted due to Medical Conditions or Safety Concerns. Roll Left to Right (QC): 6 Sit to Lying (QC): 4 Sit to Stand (QC): 3 Chair/Yzy-hw-Zfrfz Xfer(QC): 3 Car Transfer (QC): 2 Gait Training Does the Patient Walk?: No and Walking Goal IS indicated Walk 10 feet (QC): 88 Walk 50 ft with 2 Turns(QC): 88 Walk 150 ft (QC): 88 Walking 10ft/uneven surface-QC: 88 Wheelchair Training Does the Pt Use a Wheelchair?: Yes Wheel 50 ft with 2 turns (QC): 4 Wheel 150 ft (QC): 4 Type of Wheelchair: Manual Stair Training 1 Step (curb) (QC): 88 4 Steps (QC): 88 12 Steps (QC): 88 Balance Picking up an Object (QC): 88 ADL-Treatment Eating (QC): 6 Oral Hygiene (QC): 6 (Sitting at sink, pt complete oral care independently.) Bathing Location: L Arm, R Arm, L Upper Leg, R Upper Leg, L Lower Leg (inc luding foot), R Lower Leg (including foot), Chest, Abdomen, Perineal Area Shower/Bathe Self (QC): 3 Upper Body Dressing (QC): 5 Lower Body Dressing (QC): 1 On/Off Footwear (QC): 3 Toileting Hygiene (QC): 1 Toilet Transfer (QC): 1 Assessment/Plan Assessment and Plan Assess & Plan/Chief Complaint Assessment: Myopathy COVID-19 PNA Urinary retention Valdes cath in place Bowel incontinence Hypoxia O2 dependent BPH Frail Advanced age Sputum colonized with MRSA and ESBL Plan: IRF protocol but 120 minutes per day to accommodate hypoxia at activity [place] meds Melatonin at night 11/21/20: s/o IVF Monitor hypotension and hypoxia Appreciate Dr Cisneros ECHO done Add Remeron for sleep with Melatonin 11/22/20: No possibility of weaning O2 for now with this patient so needs on 21/06 and will update RT Increase activity 11/23/20: Maintain O2 Nebs Monitor BP 11/24/20: Venofer Labs and ABG and CT chest in am Dr Schrader consultation Maintain O2 Very fragile lungs 11/25/20: CT chest ABG Dr Schrader consultation 11/26/20: Dr Schrader appreciated Dr Marsh appreciated 11/27/20: Dr Marsh appreciated Monitor O2 11/28/20: Valdes cath in place Midline Venofer 11/29/20: Midline flushes Venofer Monitor closely Dramatic improvement 11/30/20: Dramatic improvement continues Monitor closely Increase O2 with therapy 12/01/20: Bowel incontinence could complicate DC plans Monitor urinary retention closely 12/02/20: Manage B/B incontinence Improved status Labs good 12/03/20: Improved insomnia Continue treatment B/B incontinence 12/04/20: TURP next Wed Hold OAC as of Wednesday Conferred with Dr Marsh and patient 12/05/20: Improved transfers Monitor closely O2 Incontinence management 12/06/20: Steady improvement TURP Wed Hold OAC as of Wednesday morning 12/07/20: Await second sputum Monitor closely O2 BM 12/08/20: TURP Wed Hold OAC Monitor closely Labs in am 12/09/20: TURP Wednesday Monitor closely (1) Myopathy (2) COVID-19 (3) Hypoxia (4) Urinary retention (5) Valdes catheter in place (6) BPH (benign prostatic hyperplasia) (7) Bowel incontinence (8) Supplemental oxygen dependent (9) Advanced age (10) Frailty BARB COLLINS DO Dec 09, 2020 05:54
[2020-12-09 05:55] LABS: CARBON DIOXIDE 25 MMOL/L (21-32)
[2020-12-09 05:56] LABS: BILIRUBIN,TOTAL 0.2 MG/DL (0.1-1.0)
[2020-12-09 05:58] LABS: ALKALINE PHOSPHATASE 92 U/L (40-136); CREATININE SERUM 0.69 MG/DL (0.60-1.30); GFR ESTIMATED > 60
[2020-12-09 05:59] LABS: BUN/CREATININE RATIO 30
[2020-12-09 06:01] LABS: ALANINE AMINOTRANSFERASE 18 U/L (0-55)
[2020-12-09] MEDS: RT-ALBUTEROL/IPRATROPIUM 3 ML (DUONEB) VIAL IH SCH ×2 (06:52→18:49)
[2020-12-09] MEDS: ADVAIR HFA 115/21 MCG INHALER 8 GM IH SCH ×2 (06:52→18:49)
[2020-12-09] MEDS: predniSONE 10 MG TAB PO SCH (07:05)
--- NOTE | 2020-12-09 08:44 | Cardiology Progress Note ---
Subjective Date Seen by Provider: Dec 09, 2020 Time Seen by Provider: 08:36 Subjective/Events-last exam Sitting up in bed, no new complaints. Denies any chest pain or palpitations. Objective-Cardiology Exam Last Set of Vital Signs Vital Signs 12/09/20 12/09/20 05:43 09:50 Temp 36.9 Pulse 95 Resp 16 B/P (MAP) 111/71 (84) Pulse Ox 97 O2 Delivery Nasal Cannula O2 Flow Rate 2.00 Capillary Refill : Less Than 3 Seconds I&O Intake and Output 12/09/20 00:00 Intake Total 1830 ml Output Total 2550 ml Balance -720 ml Intake Oral 1830 ml Output Urine Total 2550 ml # Bowel Movements 2 General: Alert, Oriented X3, Cooperative HEENT: Atraumatic, PERRLA Neck: Supple, No JVD, No Thyromegaly Lungs: Clear to Auscultation, Normal Air Movement Heart: Regular Rate, Normal S1, Normal S2, No Murmurs Abdomen: Normal Bowel Sounds, Soft, No Tenderness, No Hepatosplenomegaly, No Masses Extremities: No Clubbing, No Cyanosis, No Edema, Normal Pulses, No Tenderness/Swelling Skin: No Rashes, No Breakdown, No Significant Lesion Neuro: Normal Gait, Normal Speech, Strength at 5/5 X4 Ext, Normal Tone, Sensation Intact Psych/Mental Status: Mental Status NL, Mood NL Results Lab Laboratory Tests 12/09/20 05:00 A/P-Cardiology Admission Diagnosis PAF s/p acute respiratory failure Hypotension Myopathy Assessment/Plan PAF, currently sinus rhythm, Eliquis currently on hold for procedure Wednesday S/p ac resp failure due to COVID-19 in early 2019 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 Diuretics stopped on 11/21/20. Sildenafil reduced on 11/23/20 and stopped on 11/25/20 Urinary retention, following with Dr. Marsh. +MRSA in sputum Patient was seen and evaluated with Brenda, examination performed, management plan was discussed, agree with the current scribed note, I made few changes to the note using Italic font Patient was seen at bedside, sitting comfortably, denied any chest pain Heart is regular at this point Has history of paroxysmal atrial fibrillation maintained on oral anticoagulation, currently on hold for his TURP Restart oral anticoagulation when deemed reasonable by the surgeon Clinical Quality Measures DVT/VTE Risk/Contraindication: Risk Factor Score Per Nursin RFS Level Per Nursing on Admit: 4+=Very High BRENDA MARCIAL Dec 09, 2020 08:44 GIANCARLO BROWN MD Dec 09, 2020 17:11
[2020-12-09] MEDS: MONTELUKAST 10 MG (SINGULAIR) TAB PO SCH (09:34)
[2020-12-09] MEDS: FOLIC ACID 1 MG TAB PO SCH (09:34)
[2020-12-09] MEDS: SENNA W/DOCUSATE (SENOKOT S) TABLET PO SCH ×2 (09:34→21:23)
[2020-12-09] MEDS: LACTOBACILLUS ACIDOPHILUS (PROBIOTIC) CAPSULE PO SCH ×2 (09:34→21:32)
[2020-12-09] MEDS: TAMSULOSIN 0.4 MG (FLOMAX) CAP PO SCH ×2 (09:34→21:23)
[2020-12-09] MEDS: CYANOCOBALAMIN 1,000 MCG (VITAMIN B-12) TABLET NG SCH (09:34)
[2020-12-09] MEDS: DOCUSATE SODIUM 100 MG (COLACE) CAP PO SCH ×2 (09:34→21:21)
[2020-12-09] MEDS: ROFLUMILAST 500 MCG TAB (DALIRESP) NG SCH (09:35)
[2020-12-09] MEDS: PANTOPRAZOLE 40 MG (PROTONIX) TAB PO SCH (09:36)
[2020-12-09] MEDS: LORATADINE (CLARITIN) 10 MG TAB PO SCH (09:36)
[2020-12-09] MEDS: FINASTERIDE (PROSCAR) 5 MG TAB PO SCH (09:37)
[2020-12-09] MEDS: MICONAZOLE 2% POWDER (DESENEX AF) 90 GM TOP SCH ×2 (09:41→21:26)
[2020-12-09] MEDS: NYSTATIN CREAM (MYCOSTATIN) 30 GM TUBE TP SCH ×3 (09:41→21:29)
[2020-12-09] MEDS: polyethylene glycoL POWDER 17 GM (MIRALAX) PACK PO SCH ×2 (09:44→21:26)
[2020-12-09 09:50] VITALS: BP 111/71
[2020-12-09] MEDS: meTOprolol TARTRATE 25 MG (LOPRESSOR) TABLET PO SCH ×2 (09:58→21:27)
--- NOTE | 2020-12-09 10:01 | Occupational Ther Daily Note ---
OT Current Status-Daily Note Subjective Pt alert, lying in bed. Pt agrees to therapy. No c/o pain at this time. Mental Status/Objective Patient Orientation: Person, Place, Time, Situation Attachments: Mejia Catheter, IV (midline), Oxygen (2L) ADL-Treatment 1st ptsaibt-Uv-zomux with PT ([id number]), skills of 2 clinicians required due to increased SOA, decreased activity tolerance and need of skilled instruction and care for all mobility. PT focusing on mobility and transfers while OT focused on ADLs and hand placement during mobility. Pt agrees to shower. Pt requests to use BSC. Pt requires assist x2 to transfer to BSC then assist x2 to stand a nd cleanse after bowel movement. Pt was able to push to stand with less assist though still max A. Pt stood with max A using FWW while KEANE switched out seats. Supine to sitting EOB, min A. Assist x2 for SPT to shower chair with cutout. Transported to shower with chair. Pt completed shower after setup using hand held shower, grabbars, shower chair and long handle sponge. Pt able to reach all areas except buttocks. Pt takes increased time due to increased SOA and O2 levels. Assist x2 to transfer from shower chair to recliner. After session, pt sitting in recliner with call light/phone in reach. All needs met in room. Therapy Code Descriptions/Definitions Functional Bath Measure: 0=Not Assessed/NA 4=Minimal Assistance 1=Total Assistance 5=Supervision or Setup 2=Maximal Assistance 6=Modified Bath 3=Moderate Assistance 7=Complete IndependenceSCALE: Activities may be completed with or without assistive devices. 1-Tcvxixnefs-uladqhf completes the activity by him/herself with no assistance from a helper. 5-Set-up or Clean-up Assistance-helper sets up or cleans up; patient completes activity. [place] assists only prior to or following the activity. 4-Supervision or Touching Assistance-helper provides verbal cues and/or touching/steadying and/or contact guard assistance as patient completes activity. Assistance may be provided throughout the activity or intermittently. 3-Partial/Moderate Assistance-helper does LESS THAN HALF the effort. [place] lifts, holds or supports trunk or limbs, but provides less than half the effort. 2-Substantial/Maximal Assistance-helper does MORE THAN HALF the effort. [place] lifts or holds trunk or limbs and provides more than half the effort. 1-Xzitrgtzm-hlohia does ALL the effort. Patient does none of the effort to complete the activity. Or, the assistance of 2 or more helpers is required for the patient to complete the activity. If activity was not attempted, code reason: 7-Patient Refused. 9-Not Applicable-not attempted and the patient did not perform the activity before the current illness, exacerbation or injury. 10-Not Attempted due to Environmental Limitations-(lack of equipment, weather restraints, etc.). 88-Not Attempted due to Medical Conditions or Safety Concerns. Oral Hygiene (QC): 6 Shower/Bathe Self (QC): 3 Upper Body Dressing (QC): 3 Lower Body Dressing (QC): 1 On/Off Footwear: 2 Toileting Hygiene (QC): 1 Toilet Transfer (QC): 1 Other Treatment 2nd session([id number]) Pt requested to move from recliner to bed. Pt able to assist with positioning sling for the sit to stand. Pt able to stand erect with sit to stand with back straight and head elevated for ~3 min. Pt then sat EOB independently and went to supine independently. Using bed rails and bed tilted HOB down, pt able to pull self up in bed. After session, pt lying in bed with call light/phone in reach. All needs met in room. OT Short Term Goals Short Term Goals Time Frame: Dec 11, 2020 Shower/bathe self: 4 Upper body dressin Lower body dressin OT Bakeshop Cleaner Goals Bakeshop Cleaner Goals Time Frame: Dec 20, 2020 Eating (QC): 6 Oral Hygiene (QC): 6 Toileting Hygiene (QC): 6 Shower/Bathe Self (QC): 6 Upper Body Dressing (QC): 6 Lower Body Dressing (QC): 6 On/Off Footwear (QC): 6 Additional Goals: 1-Demonstrate ADL Tasks, 2-Verbalize Understanding, 3-ImproveStrength/Leti 1=Demonstrate adherence to instructed precautions during ADL tasks. 2=Patient will verbalize/demonstrate understanding of assistive devices/modifications for ADL. 3=Patient will improve strength/tolerance for activity to enable patient to perform ADL's. OT Education/Plan Problem List/Assessment Assessment: Decreased Activ Tolerance, Dependent Transfers, Impaired Self-Care Skills Discharge Recommendations Plan/Recommendations: Continue POC Treatment Plan/Plan of Care Patient would benefit from OT for education, treatment and training to promote independence in ADL's, mobility, safety and/or upper extremity function for ADL's. Plan of Care: ADL Retraining, Functional Mobility, Group Exercise/Act as Ind, UE Funct Exercise/Act Treatment Duration: Dec 20, 2020 Frequency: Modified Program (IRF) Estimated Hrs Per Day: 1 hour per day Rehab Potential: Fair Time/GCodes Start Time: 09:00 ([id number]) Stop Time: 12:00 ([id number]) Total Time Billed (hr/min): 90 Billed Treatment Time 2 visits-ADL 4 (60 min) FA 2 (30 min) co-treat with PT [id number], individual [id number] VIOLET BACA Dec 09, 2020 10:01
--- NOTE | 2020-12-09 10:03 | Physical Therapy Daily Note ---
PT Daily Note-Current Subjective Pt. agrees to Rx, anxious to get a shower. Feels encouraged that he can stand with assist now. Pain Location: No Pain Reported Mental Status Patient Orientation: Normal For Age Attachments: Oxygen, Mejia Catheter (s) Transfers SCALE: Activities may be completed with or without assistive devices. 8-Ksjsjcesmv-gvcpfju completes the activity by him/herself with no assistance from a helper. 5-Set-up or Clean-up Assistance-helper sets up or cleans up; patient completes activity. [place] assists only prior to or following the activity. 4-Supervision or Touching Assistance-helper provides verbal cues and/or touching/steadying and/or contact guard assistance as patient completes activi ty. Assistance may be provided throughout the activity or intermittently. 3-Partial/Moderate Assistance-helper does LESS THAN HALF the effort. [place] lifts, holds or supports trunk or limbs, but provides less than half the effort. 2-Substantial/Maximal Assistance-helper does MORE THAN HALF the effort. [place] lifts or holds trunk or limbs and provides more than half the effort. 1-Qaxfyjttn-qubzxy does ALL the effort. Patient does none of the effort to complete the activity. Or, the assistance of 2 or more helpers is required for the patient to complete the activity. If activity was not attempted, code reason: 7-Patient Refused. 9-Not Applicable-not attempted and the patient did not perform the activity before the current illness, exacerbation or injury. 10-Not Attempted due to Environmental Limitations-(lack of equipment, weather restraints, etc.). 88-Not Attempted due to Medical Conditions or Safety Concerns. Lying to Sitting/Side of Bed(Q: 5 (with HOB up) Sit to Stand (QC): 3 (assist of 2) Chair/Ngg-el-Atull Xfer(QC): 3 Toilet Transfer (QC): 3 PT OT co Rx for sit to stands, using FWW for stance, alignment, and wt shift, all for showering, BSC use and TRF ultimately in to recliner. OT focusing on bathing and dressing and PT on TRFs, alignment and LE exercises, 2 skilled therapists needed as pt. requires mod to max assist of 2 clinicians and fatigues easily but gives full effort Weight Bearing Full Weight Bearing Full Weight Bearing Gait Training 3 small steps to turn to get from shower chair to recliner with mod assist 2 Exercises Supine Ex: Ankle pumps, Quad Set, Glut sets, Straight leg raise Supine Reps: 12 Seated Therapy Exercises: Sit to stand Seated Reps: 6 Treatments PT OT co Rx as stated above Assessment Current Status: Good Progress noted gains in SPTs and sit to stands PT Short Term Goals Short Term Goals Time Frame: Nov 27, 2020 Roll Left & Right: 3 Sit to lyin Lying to sitting on side of be: 3 Sit to stand: 3 Chair/wlm-va-yknwb transfer: 3 Walk 10 feet: 3 PT Scrap Collector Goals Scrap Collector Goals PT Detention Goals Time Frame: Dec 11, 2020 Roll Left & Right (QC): 4 Sit to Lying (QC): 4 Lying-Sitting on Side/Bed(QC): 4 Sit to Stand (QC): 4 Chair/Tgu-jk-Kxxgb Xfer(QC): 4 Toilet Transfer (QC): 4 Car Transfer (QC): 3 Does the Patient Walk: Yes Walk 10 feet (QC): 3 Walk 50ft with 2 Turns (QC): 3 Walk 150 ft (QC): 88 Walking 10ft on Uneven Surface: 3 1 Step (curb) (QC): 3 4 Steps (QC): 88 12 Steps (QC): 88 Picking up an Object (QC): 88 Wheel 50 feet with 2 turns (QC: 6 Wheel 150 feet: 6 PT Plan Treatment/Plan Treatment Plan: Continue Plan of Care Treatment Plan: Bed Mobility, Education, Functional Activity Leti, Functional Strength, Group Therapy, Gait, Safety, Therapeutic Exercise, Transfers Treatment Duration: Dec 11, 2020 Frequency: Modified Program (IRF) Estimated Hrs Per Day: 1 hour per day Patient and/or Family Agrees t: Yes Safety Risks/Education Patient Education: Transfer Techniques, Correct Positioning, Disease Process, Safety Issues Teaching Recipient: Patient Teaching Methods: Demonstration, Discussion Response to Teaching: Verbalize Understanding, Return Demonstration, Reinforcement Needed Time/GCodes Time In: 900 Time Out: 1000 Total Billed Treatment Time: 60 Total Billed Treatment 1,EX10m,FA50m (PT OT co Rx 60m) ESSENCE ARRIAZA APPRENTICE COSMETOLOGIST Dec 09, 2020 10:03
--- NOTE | 2020-12-09 10:45 | NUR ---
CHECKED WITH DAY SURGERY, PT WAS COVID POSITIVE 09/13/20 AND STILL WITHIN 90 DAY WINDOW. PER DAY SURGERY WE DO NOT NEED TO COVID SWAB PT FOR TURP SCHEDULED ON WEDNESDAY.
--- NOTE | 2020-12-09 16:46 | NUR ---
"RD ASSESSMENT PMHx: afib; BPH; HTN; hypercholesterolemia; PT INTERACTION: Pt was awake and pleasant during nutrition follow-up. Pt states he has been eating well since last assessment. Note avg PO intake >90% x4d, per chart review. Pt states some issues with constipation since last assessment. Note last BM was 12/08, and pt currently on bowel regimen of colace BID, senna BID, and miralax BID, per chart review. Est. kcal needs: 1747-4338 kcal | 25-30 kcal/kg Est. Pro needs: 64-80 g Pro | 0.8-1.0 g Pro/kg PES STATEMENT: Given current appetite and PO intake, no nutrition diagnosis at this time (NO-1.1). INTERVENTION: Continue with current diet order of Regular diet. Continue with current supplement order of Ensure Hihg Protein TID. Provides 160 kcal and 16 g Pro per serving. Will continue to follow and reassess as pt needs, intake, and status change. Carlos SIMMONS, MS RD LD [phone] cell"
[2020-12-09 17:17] VITALS: BP 97/59
--- NOTE | 2020-12-09 18:04 | Podiatry Progress Note ---
Standard Progress Note Progress Notes/Assess & Plan Date Seen by a Provider: Dec 09, 2020 Time Seen by a Provider: 18:02 Progress/Assessment & Plan Consult dictated. Foot care given. Follow up as needed. Final Diagnosis Onychomycosis, Hyperkeratosis, Xerosis, WILLIE TIERNEY DPM Dec 09, 2020 18:04
[2020-12-09 21:00] VITALS: BP 109/70
--- NOTE | 2020-12-09 21:00 | NUR ---
FEET VERY DRY AND INSTEAD OF REPLACING ALLEVYNS - LOTIONED UP FEET WELL AND CUSHIONED BOOTS PUT ON. WILL NEED LOTION TO FEET REGULARLY. O2 ON AT 2L.
--- NOTE | 2020-12-09 21:06 | CONSULTATION REPORT ---
DATE OF SERVICE: REASON FOR CONSULTATION: Foot care. HISTORY OF PRESENT ILLNESS: This 80-year-old male has difficulty reaching for and caring for his feet. He has been complaining of painful calluses in his past. They have gotten somewhat better since he has been off his feet more. The patient was diagnosed with COVID 19 in August and has had residual issues since his diagnosis. He is currently at rehabilitation services at [facility]. PAST MEDICAL HISTORY: The patient has a past medical history, which includes pneumonia, positive COVID 19 diagnosed 09/13/2020, atrial fibrillation. CURRENT MEDICATIONS: Reviewed. ALLERGIES: HE IS ALLERGIC TO WASPS. No known drug allergies. SOCIAL HISTORY: He is , currently retired. Denies alcohol. Former smoker for only a brief time. PHYSICAL EXAMINATION: LOWER EXTREMITY: The patient has 2/4 dorsalis pedis pulse, 0/4 posterior tibial pulse bilaterally. Cap refill time is less than 3 seconds. NEUROLOGIC: The patient for the feet has intact protective sensation with 10 gram monofilament wire examination bilaterally. Vibratory sensation is diminished significantly bilaterally. DERMATOLOGIC: The patient has thick yellow dystrophic toenails with subungual debris to the right first, second, third, fourth, fifth and the left first, second, third, fourth and fifth digits. There are hyperkeratotic lesions noted to the distal aspect of the hallux bilaterally. Distal aspect of the right second toe plantar heel bilaterally. MUSCULOSKELETAL FINDINGS: The patient has 4/5 muscle strength to the plantar flexion and inversion quadrants of the foot bilaterally. He has 3/5 muscle strength for dorsiflexion bilaterally. ASSESSMENT: 1. Idiopathic neuropathy. 2. Onychomycosis. 3. Corns and calluses. 4. Cirrhosis. PLAN: Various treatment options were discussed with the patient today. The patient had his toenails debrided manually mechanically. Betadine applied. All 10 toenails were debrided today. His hyperkeratotic lesions were debrided in the same location as described above, after which Betadine was applied. I encouraged the patient to utilize lotion to the feet daily, except between the toes. I also encouraged the patient to continue with appropriate rehabilitation for strengthening of his lower extremities, especially for dorsiflexion of the foot bilaterally. We will see the patient for followup in the clinic as necessary. Job ID: [id number] DocumentID: [id number] Dictated Date: 12/09/2020 18:00:47 Product Assembler Date: 12/09/2020 21:05:19 Dictated By: SUNITHA GRAYSON
[2020-12-09] MEDS: MELATONIN 10 MG TABLET PO SCH (21:23)
[2020-12-09] MEDS: MIRTAZAPINE 15 MG (REMERON) TAB PO SCH (21:24)
[2020-12-09] MEDS: SOD CHL GEL 0.5 OZ (AYR SALINE NASAL GEL) TUBE TOP PRN (21:56)
[2020-12-10] VITALS (8 sets, daily range): BP systolic 94–123; BP diastolic 56–74
[2020-12-10] MEDS: predniSONE 10 MG TAB PO SCH (06:49)
[2020-12-10] MEDS: CATHETER FLUSH 10 ML SYR IV SCH ×3 (06:50→22:43)
[2020-12-10] MEDS: RT-ALBUTEROL/IPRATROPIUM 3 ML (DUONEB) VIAL IH SCH ×2 (07:19→20:12)
[2020-12-10] MEDS: ADVAIR HFA 115/21 MCG INHALER 8 GM IH SCH ×2 (07:19→20:12)
[2020-12-10] MEDS: FOLIC ACID 1 MG TAB PO SCH (08:04)
[2020-12-10] MEDS: CYANOCOBALAMIN 1,000 MCG (VITAMIN B-12) TABLET NG SCH (08:04)
[2020-12-10] MEDS: polyethylene glycoL POWDER 17 GM (MIRALAX) PACK PO SCH ×2 (08:04→23:10)
[2020-12-10] MEDS: SENNA W/DOCUSATE (SENOKOT S) TABLET PO SCH ×2 (08:04→22:42)
[2020-12-10] MEDS: DOCUSATE SODIUM 100 MG (COLACE) CAP PO SCH ×2 (08:04→22:40)
[2020-12-10] MEDS: LORATADINE (CLARITIN) 10 MG TAB PO SCH (08:05)
[2020-12-10] MEDS: MONTELUKAST 10 MG (SINGULAIR) TAB PO SCH (08:05)
[2020-12-10] MEDS: TAMSULOSIN 0.4 MG (FLOMAX) CAP PO SCH ×2 (08:05→22:40)
[2020-12-10] MEDS: PANTOPRAZOLE 40 MG (PROTONIX) TAB PO SCH (08:05)
[2020-12-10] MEDS: FINASTERIDE (PROSCAR) 5 MG TAB PO SCH (08:05)
[2020-12-10] MEDS: ROFLUMILAST 500 MCG TAB (DALIRESP) NG SCH (08:05)
[2020-12-10] MEDS: LACTOBACILLUS ACIDOPHILUS (PROBIOTIC) CAPSULE PO SCH ×2 (08:05→22:39)
[2020-12-10] MEDS: MICONAZOLE 2% POWDER (DESENEX AF) 90 GM TOP SCH ×2 (08:06→22:43)
[2020-12-10] MEDS: NYSTATIN CREAM (MYCOSTATIN) 30 GM TUBE TP SCH ×3 (08:06→22:43)
--- NOTE | 2020-12-10 08:26 | Cardiology Progress Note ---
Subjective Date Seen by Provider: Dec 10, 2020 Time Seen by Provider: 08:24 Subjective/Events-last exam Patient is in bed, denies any chest pain or dizziness. Review of Systems General: No Chills, No Night Sweats; Fatigue, Malaise; No Appetite, No Other HEENT: No Head Aches, No Visual Changes, No Eye Pain, No Ear Pain, No Dysphasia, No Sinus Congestion, No Post Nasal Drip, No Sore Throat, No Other Pulmonary: No Dyspnea, No Cough, No Pleuritic Chest Pain, No Other Cardiovascular: No: Chest Pain, Palpitations, Orthopnea, Paroxysmal Noc. Dyspnea, Edema, Lt Headedness, Other Objective-Cardiology Exam Last Set of Vital Signs Vital Signs 12/10/20 12/10/20 12/10/20 06:08 07:20 08:00 Temp 36.4 Pulse 83 Resp 18 B/P (MAP) 94/56 (69) Pulse Ox 98 O2 Delivery Nasal Cannula O2 Flow Rate 2.00 Capillary Refill : Less Than 3 Seconds I&O Intake and Output 12/10/20 00:00 Intake Total 1610 ml Output Total 1850 ml Balance -240 ml Intake Oral 1610 ml Output Urine Total 1850 ml # Bowel Movements 1 General: Alert, Oriented X3, Cooperative HEENT: Atraumatic, PERRLA Neck: Supple, No JVD, No Thyromegaly Lungs: Clear to Auscultation, Normal Air Movement Heart: Regular Rate, Normal S1, Normal S2, No Murmurs Abdomen: Normal Bowel Sounds, Soft, No Tenderness, No Hepatosplenomegaly, No Masses Extremities: No Clubbing, No Cyanosis, No Edema, Normal Pulses, No Tenderness/Swelling Skin: No Rashes, No Breakdown, No Significant Lesion Neuro: Normal Gait, Normal Speech, Normal Tone, Sensation Intact Psych/Mental Status: Mental Status NL, Mood NL A/P-Cardiology Admission Diagnosis PAF s/p acute respiratory failure Hypotension Myopathy Assessment/Plan PAF, currently sinus rhythm, Eliquis currently on hold for procedure Wednesday S/p ac resp failure due to COVID-19 in early 2019 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 Diuretics stopped on 11/21/20. Sildenafil reduced on 11/23/20 and stopped on 11/25/20. Lopressor held this morning. Urinary retention, following with Dr. Marsh. +MRSA in sputum Patient was seen and evaluated with Brenda, examination performed, management plan was discussed, agree with the current scribed note, I made few changes to the note using Italic font Patient was laying down in bed, feeling better. No new complaint Scheduled for surgery tomorrow. Blood pressure was borderline low, maintained on very low-dose beta blockers with parameters to hold for systolic below 100, still having frequent atrial premature contractions Clinical Quality Measures DVT/VTE Risk/Contraindication: Risk Factor Score Per Nursin RFS Level Per Nursing on Admit: 4+=Very High BRENDA MARCIAL Dec 10, 2020 08:26 GIANCARLO BROWN MD Dec 10, 2020 09:05
--- NOTE | 2020-12-10 08:35 | PM&R Progress Note ---
Subjective HPI/CC On Admission Date Seen by Provider: Dec 10, 2020 Time Seen by Provider: 08:15 Subjective/Events-last exam 12/10/20: TURP scheduled for tomorrow morning Receiving two units of blood in preparation for the surgery since there is blood loss during the surgery Remains on two liters of oxygen Overall feels like he is doing really well 12/09/20: Bowels moved after suppository yesterday Holding anticoagulation for TURP Hgb 8.7 s/p five doses of Venofer Overall feels pretty good 12/08/20: MRSA of sputum still present TURP Wed Holding OAC now for surgery Standing a bit on his own with sit to stand 12/07/20: Second sputum done and pending BM incontinent Hold Eliquis tomorrow in prep for TURP 2L/min O2 maintained Sit to stand is helpful 12/06/20/: Steady improvement Dr Pritchett Wednesday for toenail care Second sputum pending to get out of isolation BM today 12/05/20: BM today 2L/min BP low so will monitor closely Improved transfers Updated patient and his who was on the phone 12/04/20: Pt slept very well again Coughing up a little bit more sputum that does show MRSA and ESBL, will remain in isolation Valdes is back in Will have TURP on Wednesday, holding Eliquis on Wednesday Incontinence of bowels is noted Overall extremely improved 12/03/20: Discontinued catheter yesterday by Dr. 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 Up in chair today BM++ Good outlook O2 at 3L/min Increase O2 during therapies 11/29/20: No new issues Midline was placed now flushes maintained Much improved status Down to 1 L of oxygen Increased oxygen requirement with exercise Still with Valdes catheter in place Upright in wheelchair today Dramatic improvement 11/28/20: Slept a bit better Midline for Venofer will be placed Much improved status BSC today Valdes cath replaced 11/27/20: Pt remains on 1 liter per minute of oxygen Appears to be much improved today Cystoscope done today showing large prostate Proscar along with Flomax was initiated Cath was done and obtained 1000cc of urine Nystatin cream and powder will be initiated Overall much improved 11/26/20: Pt did not sleep last night due to urinary frequency Had to do straight in and out cath x4 last night Dr. Marsh will be updated Blood in the urine 1 liter of O2 now but will need a higher level when he is working out CT chest and ABG reviewed 11/25/20: ABG is pending from not being drawn yet CT of the chest will be performed, Dr. Schrader has been updated Bowels moved yesterday 11/24/20: Venofer IV started and I explained why I started that for him Will check CT scan of chest tomorrow and consult Dr Schrader Labs and ABG ordered as well Still very tachypneic with conversation and at rest Monitoring BP 2L/min 11/23/20: No orthostasis today Worked with PT OT BM++ O2 maintained 11/22/20: Hgb 8.6 today Feels better since IVF 500cc yesterday and changed cardiac meds by Dr Cisneros [place] was born and he is thrilled about that Valdes cath still in place Fecal incontinence noted RT left him without O2 since he was good BRIEFLY on room air after Nebs for 1 hour and spot checked and he was at 85% and he was very short of breath just re sting 11/21/20: Had episode of hypotension 76/40 with symptoms when got to edge of bed so laid back down, Cardiology notified and given 500cc of IVF Patient is on a waiver due to COVID and hypoxia for slow therapy and only 120 minutes per day Cardizem CD 120mg now after changed by Dr Cisneros ECHO done Stopped Lasix Valdes cath remains in place Review of Systems Pulmonary: Dyspnea, Cough Neurological: Weakness, Incoordination Objective Exam Vital Signs Vital Signs Date Time Temp Pulse Resp B/P (MAP) Pulse Ox O2 Delivery O2 Flow Rate FiO2 12/11/20 01:42 37.2 88 18 111/73 98 Nasal Cannula 2.00 Capillary Refill : Less Than 3 Seconds General Appearance: No Apparent Distress, WD/WN, Chronically ill, Thin HEENT: PERRL/EOMI, Normal ENT Inspection, Pharynx Normal Neck: Full Range of Motion, Normal Inspection, Non Tender, Supple, Carotid Bruit Respiratory: Chest Non Tender, Lungs Clear, No Respiratory Distress, Accessory Muscle Use, Decreased Breath Sounds Cardiovascular: Regular Rate, Rhythm, No Edema, No Gallop, No JVD, No Murmur, Normal Peripheral Pulses Gastrointestinal: Normal Bowel Sounds, No Organomegaly, No Pulsatile Mass, Non Tender, Soft Back: Normal Inspection, No CVA Tenderness, No Vertebral Tenderness Extremity: Normal Capillary Refill, Normal Inspection, Normal Range of Motion, Non Tender, No Calf Tenderness, No Pedal Edema Neurologic/Psychiatric: Alert, Oriented x3, No Motor/Sensory Deficits, Normal Mood/Affect, Motor Weakness (generalized 2/5 lower extremities, 3/5 upper extremities) Skin: Normal Color, Warm/Dry Lymphatic: No Adenopathy Results/Procedures Lab Patient resulted labs reviewed. FIM Transfers Therapy Code Descriptions/Definitions Functional [place] Measure: 0=Not Assessed/NA 4=Minimal Assistance 1=Total Assistance 5=Supervision or Setup 2=Maximal Assistance 6=Modified [place] 3=Moderate Assistance 7=Complete IndependenceSCALE: Activities may be completed with or without assistive devices. 8-Kypxipsvdj-qxzmlgd completes the activity by him/herself with no assistance from a helper. 5-Set-up or Clean-up Assistance-helper sets up or cleans up; patient completes activity. [place] assists only prior to or following the activity. 4-Supervision or Touching Assistance-helper provides verbal cues and/or touching/steadying and/or contact guard assistance as patient completes activity. Assistance may be provided throughout the activity or intermittently. 3-Partial/Moderate Assistance-helper does LESS THAN HALF the effort. [place] lifts, holds or supports trunk or limbs, but provides less than half the effort. 2-Substantial/Maximal Assistance-helper does MORE THAN HALF the effort. [place] lifts or holds trunk or limbs and provides more than half the effort. 6-Cvbyqulee-qcwvhy does ALL the effort. Patient does none of the effort to complete the activity. Or, the assistance of 2 or more helpers is required for the patient to complete the activity. If activity was not attempted, code reason: 7-Patient Refused. 9-Not Applicable-not attempted and the patient did not perform the activity before the current illness, exacerbation or injury. 10-Not Attempted due to Environmental Limitations-(lack of equipment, weather restraints, etc.). 88-Not Attempted due to Medical Conditions or Safety Concerns. Roll Left to Right (QC): 6 Sit to Lying (QC): 4 Sit to Stand (QC): 3 (assist of 2) Chair/Bsv-yg-Nxvfc Xfer(QC): 3 Car Transfer (QC): 2 Gait Training Does the Patient Walk?: No and Walking Goal IS indicated Walk 10 feet (QC): 88 Walk 50 ft with 2 Turns(QC): 88 Walk 150 ft (QC): 88 Walking 10ft/uneven surface-QC: 88 Wheelchair Training Does the Pt Use a Wheelchair?: Yes Wheel 50 ft with 2 turns (QC): 4 Wheel 150 ft (QC): 4 Type of Wheelchair: Manual Stair Training 1 Step (curb) (QC): 88 4 Steps (QC): 88 12 Steps (QC): 88 Balance Picking up an Object (QC): 88 ADL-Treatment Eating (QC): 6 Oral Hygiene (QC): 6 Bathing Location: L Arm, R Arm, L Upper Leg, R Upper Leg, L Lower Leg (including foot), R Lower Leg (including foot), Chest, Abdomen, Perineal Area Shower/Bathe Self (QC): 3 Upper Body Dressing (QC): 3 Lower Body Dressing (QC): 1 On/Off Footwear (QC): 2 Toileting Hygiene (QC): 1 Toilet Transfer (QC): 1 Assessment/Plan Assessment and Plan Assess & Plan/Chief Complaint Assessment: Myopathy COVID-19 PNA Urinary retention Valdes cath in place Bowel incontinence Hypoxia O2 dependent BPH Frail Advanced age Sputum colonized with MRSA and ESBL Plan: IRF protocol but 120 minutes per day to accommodate hypoxia at activity [place] meds Melatonin at night 11/21/20: s/o IVF Monitor hypotension and hypoxia Appreciate Dr Cisneros ECHO done Add Remeron for sleep with Melatonin 11/22/20: No possibility of weaning O2 for now with this patient so needs on 21/06 and will update RT Increase activity 11/23/20: Maintain O2 Nebs Monitor BP 11/24/20: Venofer Labs and ABG and CT chest in am Dr Schrader consultation Maintain O2 Very fragile lungs 11/25/20: CT chest ABG Dr Schrader consultation 11/26/20: Dr Schrader appreciated Dr Marsh appreciated 11/27/20: Dr Marsh appreciated Monitor O2 11/28/20: Valdes cath in place Midline Venofer 11/29/20: Midline flushes Venofer Monitor closely Dramatic improvement 11/30/20: Dramatic improvement continues Monitor closely Increase O2 with therapy 12/01/20: Bowel incontinence could complicate DC plans Monitor urinary retention closely 12/02/20: Manage B/B incontinence Improved status Labs good 12/03/20: Improved insomnia Continue treatment B/B incontinence 12/04/20: TURP next Wed Hold OAC as of Wednesday Conferred with Dr Marsh and patient 12/05/20: Improved transfers Monitor closely O2 Incontinence management 12/06/20: Steady improvement TURP Wed Hold OAC as of Wednesday morning 12/07/20: Await second sputum Monitor closely O2 BM 12/08/20: TURP Wed Hold OAC Monitor closely Labs in am 12/09/20: TURP Wednesday Monitor closely 12/10/20: TURP tomorrow Monitor closely 2 units of blood today (1) Myopathy (2) COVID-19 (3) Hypoxia (4) Urinary retention (5) Valdes catheter in place (6) BPH (benign prostatic hyperplasia) (7) Bowel incontinence (8) Supplemental oxygen dependent (9) Advanced age (10) Frailty BARB COLLINS DO Dec 10, 2020 08:35
--- NOTE | 2020-12-10 08:40 | Progress Note - Urology ---
Progress Note-Urology Progress Notes/Assess & Plan Progress/Assessment & Plan TURP TOMORROW. FULLY EXPLAINED WITH EXPECTATIONS, RISKS, COMPLICATIONS, NEED FOR FURTHER TREATMENTS MEDICAL OR SURGICAL. PREOPS ORDERED Final Diagnosis URINE RETENTION DENTON MA MD Dec 10, 2020 08:40
[2020-12-10] MEDS ORDERED: cefTRIAXone FOR IV USE 1,000 MG in WATER (STERILE) FOR INJECTION 10 ML IV ONE (08:45)
[2020-12-10] MEDS: meTOprolol TARTRATE 25 MG (LOPRESSOR) TABLET PO SCH ×2 (09:00→22:42)
--- NOTE | 2020-12-10 12:48 | Physical Therapy Daily Note ---
PT Daily Note-Current Subjective Pt is laying Supine in bed upon arrival. Pt agrees to PT/OT co-treat. Mental Status Patient Orientation: Person, Place, Situation Attachments: Oxygen (2L) Transfers SCALE: Activities may be completed with or without assistive devices. 3-Ssilahiizm-ajfjmhp completes the activity by him/herself with no assistance from a helper. 5-Set-up or Clean-up Assistance-helper sets up or cleans up; patient completes activity. [place] assists only prior to or following the activity. 4-Supervision or Touching Assistance-helper provides verbal cues and/or touching/steadying and/or contact guard assistance as patient completes activity. Assistance may be provided throughout the activity or intermittently. 3-Partial/Moderate Assistance-helper does LESS THAN HALF the effort. [place] lifts, holds or supports trunk or limbs, but provides less than half the effort. 2-Substantial/Maximal Assistance-helper does MORE THAN HALF the effort. [place] lifts or holds trunk or limbs and provides more than half the effort. 8-Oaatltiiw-dbkgrg does ALL the effort. Patient does none of the effort to complete the activity. Or, the assistance of 2 or more helpers is required for the patient to complete the activity. If activity was not attempted, code reason: 7-Patient Refused. 9-Not Applicable-not attempted and the patient did not perform the activity before the current illness, exacerbation or injury. 10-Not Attempted due to Environmental Limitations-(lack of equipment, weather restraints, etc.). 88-Not Attempted due to Medical Conditions or Safety Concerns. Roll Left & Right (QC): 5 Lying to Sitting/Side of Bed(Q: 4 Sit to Stand (QC): 3 Chair/Rrl-kn-Odzfy Xfer(QC): 3 Weight Bearing Full Weight Bearing Full Weight Bearing Wheelchair Training Does the Pt Use a Wheelchair?: Yes Wheel 50 ft with 2 turns (QC): 5 Wheel 150 ft (QC): 5 Type of Wheelchair: Manual Treatments Pt completes donning socks, brief & pants. Pt TF to EOB then TF to WC. Pt completes ADLs including brushing teeth & hair at sink. Pt propels [facility] in hallway and to Therapy Gym. Pt works on standing at //bars, completes twice. Pt propels WCH back to room and TF to recliner to rest at end of tx. All needs met, call light in hand. Co-treat due to medical complexity, lack of strength and balance as well as activity tolerance. PT focuses on transfers, WCH mobility & LE strengthening while OT works on ADLs, hand placement during activities. Assessment Current Status: Good Progress Pt is improving with activity tolerance and strength for improved transfers. PT Short Term Goals Short Term Goals Time Frame: Nov 27, 2020 Roll Left & Right: 3 Sit to lyin Lying to sitting on side of be: 3 Sit to stand: 3 Chair/xwz-sq-mgbei transfer: 3 Walk 10 feet: 3 PT Prison Goals Prison Goals PT Prison Goals Time Frame: Dec 11, 2020 Roll Left & Right (QC): 4 Sit to Lying (QC): 4 Lying-Sitting on Side/Bed(QC): 4 Sit to Stand (QC): 4 Chair/Tjm-ns-Ngxid Xfer(QC): 4 Toilet Transfer (QC): 4 Car Transfer (QC): 3 Does the Patient Walk: Yes Walk 10 feet (QC): 3 Walk 50ft with 2 Turns (QC): 3 Walk 150 ft (QC): 88 Walking 10ft on Uneven Surface: 3 1 Step (curb) (QC): 3 4 Steps (QC): 88 12 Steps (QC): 88 Picking up an Object (QC): 88 Wheel 50 feet with 2 turns (QC: 6 Wheel 150 feet: 6 PT Plan Problem List Problem List: Activity Tolerance, Balance, Gait Treatment/Plan Treatment Plan: Continue Plan of Care Treatment Plan: Bed Mobility, Education, Functional Activity Leti, Functional Strength, Group Therapy, Gait, Safety, Therapeutic Exercise, Transfers Treatment Duration: Dec 11, 2020 Frequency: Modified Program (IRF) Estimated Hrs Per Day: 1 hour per day Patient and/or Family Agrees t: Yes Safety Risks/Education Patient Education: Transfer Techniques, Correct Positioning, W/C Management, Safety Issues Teaching Recipient: Patient Teaching Methods: Discussion Response to Teaching: Verbalize Understanding Time/GCodes Time In: 900 Time Out: 1000 Total Billed Treatment Time: 60 Total Billed Treatment 1, FA x3 (40m) & WCH (20m) Co-treat w/OT for 60m KARYN BAKER PTA Dec 10, 2020 12:48
--- NOTE | 2020-12-10 12:52 | Occupational Ther Daily Note ---
OT Current Status-Daily Note Subjective Pt alert, lying in bed. Pt agrees to therapy. No c/o pain. Mental Status/Objective Patient Orientation: Person, Place, Time, Situation Attachments: [place] Catheter, IV, Oxygen (2L) ADL-Treatment 1st rbqalad-Mm-ylcrk with PT ([id number]), skills of 2 clinicians required due to increased SOA, decreased activity tolerance and need of skilled instruction and care for all mobility. PT focusing on mobility and transfers while OT focused on ADLs and hand placement during mobility. Assist to doff socks. KEANE placed socks over toes and pt able to pull up rest of way. Assist to thread catheter through pant leg and thread feet into pant leg then pt able to roll side to side, in bed, to hike pants over hips. Min A for supine to sit EOB. Pt then donned shirt after set up by self, min A to doff shirt due to midline (IV). Mod A x2 to transfer from EOB to w/c. Pt propelled w/c to bathroom to complete grooming and oral care. 2nd session ([id number]) Pt requested to use BSC. Pt positioned sling and used sit to stand lift to transfer onto toilet. Assist to hike pants down over hips then pt assist in sit to stand lift to hike pants over hips. Assist to cleanse after BM. Pt able to complete own bed mobility. After session, pt lying in bed ready for lunch. All needs met in room. Call light/phone in reach. Therapy Code Descriptions/Definitions Functional [place] Measure: 0=Not Assessed/NA 4=Minimal Assistance 1=Total Assistance 5=Supervision or Setup 2=Maximal Assistance 6=Modified [place] 3=Moderate Assistance 7=Complete IndependenceSCALE: Activities may be completed with or without assistive devices. 8-Gwdlasyush-rjavxjz completes the activity by him/herself with no assistance from a helper. 5-Set-up or Clean-up Assistance-helper sets up or cleans up; patient completes activity. [place] assists only prior to or following the activity. 4-Supervision or Touching Assistance-helper provides verbal cues and/or touching/steadying and/or contact guard assistance as patient completes activity. Assistance may be provided throughout the activity or intermittently. 3-Partial/Moderate Assistance-helper does LESS THAN HALF the effort. [place] lifts, holds or supports trunk or limbs, but provides less than half the effort. 2-Substantial/Maximal Assistance-helper does MORE THAN HALF the effort. [place] lifts or holds trunk or limbs and provides more than half the effort. 5-Tknigusiy-qxirbt does ALL the effort. Patient does none of the effort to complete the activity. Or, the assistance of 2 or more helpers is required for the patient to complete the activity. If activity was not attempted, code reason: 7-Patient Refused. 9-Not Applicable-not attempted and the patient did not perform the activity before the current illness, exacerbation or injury. 10-Not Attempted due to Environmental Limitations-(lack of equipment, weather restraints, etc.). 88-Not Attempted due to Medical Conditions or Safety Concerns. Eating (QC): 6 Oral Hygiene (QC): 6 Upper Body Dressing (QC): 3 Lower Body Dressing (QC): 2 On/Off Footwear: 2 Toileting Hygiene (QC): 1 Toilet Transfer (QC): 1 Other Treatment 1st session([id number]), Co-treat with PT, see above for role delineation. Pt propelled w/c to therapy gym, maintained O2 above 90% though HR 168 which after pursed lip breathing and rest went down to 100. Pt able to multi operation forming machine setter parallel bars 3x's standing upright. See PT notes for progress. OT Short Term Goals Short Term Goals Time Frame: Dec 11, 2020 Shower/bathe self: 4 Upper body dressin Lower body dressin OT Detention Goals Detention Goals Time Frame: Dec 20, 2020 Eating (QC): 6 Oral Hygiene (QC): 6 Toileting Hygiene (QC): 6 Shower/Bathe Self (QC): 6 Upper Body Dressing (QC): 6 Lower Body Dressing (QC): 6 On/Off Footwear (QC): 6 Additional Goals: 1-Demonstrate ADL Tasks, 2-Verbalize Understanding, 3- ImproveStrength/Leti 1=Demonstrate adherence to instructed precautions during ADL tasks. 2=Patient will verbalize/demonstrate understanding of assistive devices/modifications for ADL. 3=Patient will improve strength/tolerance for activity to enable patient to perform ADL's. OT Education/Plan Problem List/Assessment Assessment: Decreased Activ Tolerance, Dependent Transfers, Impaired Self-Care Skills Discharge Recommendations Plan/Recommendations: Continue POC Treatment Plan/Plan of Care Patient would benefit from OT for education, treatment and training to promote independence in ADL's, mobility, safety and/or upper extremity function for ADL's. Plan of Care: ADL Retraining, Functional Mobility, Group Exercise/Act as Ind, UE Funct Exercise/Act Treatment Duration: Dec 20, 2020 Frequency: Modified Program (IRF) Estimated Hrs Per Day: 1 hour per day Rehab Potential: Fair Time/GCodes Start Time: 09:00 ([id number]) Stop Time: 11:30 ([id number]) Total Time Billed (hr/min): 90 Billed Treatment Time 2 visits-ADL 3 (45 min) FA 3 (45 min), co-treat with PT [id number], individual [id number] VIOLET BACA Dec 10, 2020 12:52
[2020-12-10] MEDS ORDERED: NS IV 500 ML 500 ML ONE (14:14)
[2020-12-10] MEDS ORDERED: NS IV 500 ML 500 ML IV SCH (14:30)
--- NOTE | 2020-12-10 22:30 | NUR ---
Midline not flushing. Dressing removed to assess midline better. Midline looked like it had been pulled out some. Midline repositioned and it flushed but there was no blood return. Mobile Architect assessed and decision was made to not use midline. Midline removed and tip was intact. New #20 IV started in left ac.
[2020-12-10] MEDS: MELATONIN 10 MG TABLET PO SCH (22:40)
[2020-12-10] MEDS: MIRTAZAPINE 15 MG (REMERON) TAB PO SCH (22:42)
[2020-12-11 01:42] VITALS: BP 111/73
[2020-12-11 06:15] VITALS: BP 111/73
[2020-12-11] MEDS: predniSONE 10 MG TAB PO SCH (07:00)
--- NOTE | 2020-12-11 07:30 | NUR ---
PATIENT TO OR PER CART ACC BY STAFF.
[2020-12-11] MEDS: CATHETER FLUSH 10 ML SYR IV SCH (07:32)
[2020-12-11] MEDS: ADVAIR HFA 115/21 MCG INHALER 8 GM IH SCH ×2 (07:55→20:40)
[2020-12-11] MEDS: RT-ALBUTEROL/IPRATROPIUM 3 ML (DUONEB) VIAL IH SCH ×2 (07:55→20:40)
--- NOTE | 2020-12-11 09:45 | Physical Therapy Progress Note ---
Therapy Progress Note Pt not seen by therapy services this date due to a medical procedure that will be performed today (TURP). VIOLET VARMA PT Dec 11, 2020 09:45
--- NOTE | 2020-12-12 12:13 | PM&R Progress Note ---
Subjective HPI/CC On Admission Date Seen by Provider: Dec 12, 2020 Time Seen by Provider: 10:30 Subjective/Events-last exam 12/12/20: s/p TURP Belladonna supp for pain Monitor labs Holding OAC Levaquin 500mg daily Appreciate Dr Marsh 12/10/20: TURP scheduled for tomorrow morning Receiving two units of blood in preparation for the surgery since there is blood loss during the surgery Remains on two liters of oxygen Overall feels like he is doing really well 12/09/20: Bowels moved after suppository yesterday Holding anticoagulation for TURP Hgb 8.7 s/p five doses of Venofer Overall feels pretty good 12/08/20: MRSA of sputum still present TURP Wed Holding OAC now for surgery Standing a bit on his own with sit to stand 12/07/20: Second sputum done and pending BM incontinent Hold Eliquis tomorrow in prep for TURP 2L/min O2 maintained Sit to stand is helpful 12/06/20/: Steady improvement Dr Pritchett Wednesday for toenail care Second sputum pending to get out of isolation BM today 12/05/20: BM today 2L/min BP low so will monitor closely Improved transfers Updated patient and his who was on the phone 12/04/20: Pt slept very well again Coughing up a little bit more sputum that does show MRSA and ESBL, will remain in isolation Valdes is back in Will have TURP on Wednesday, holding Eliquis on Wednesday Incontinence of bowels is noted Overall extremely improved 12/03/20: Discontinued catheter yesterday by Dr. 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 Up in chair today BM++ Good outlook O2 at 3L/min Increase O2 during therapies 11/29/20: No new issues Midline was placed now flushes maintained Much improved status Down to 1 L of oxygen Increased oxygen requirement with exercise Still with Valdes catheter in place Upright in wheelchair today Dramatic improvement 11/28/20: Slept a bit better Midline for Venofer will be placed Much improved status BSC today Valdes cath replaced 11/27/20: Pt remains on 1 liter per minute of oxygen Appears to be much improved today Cystoscope done today showing large prostate Proscar along with Flomax was initiated Cath was done and obtained 1000cc of urine Nystatin cream and powder will be initiated Overall much improved 11/26/20: Pt did not sleep last night due to urinary frequency Had to do straight in and out cath x4 last night Dr. Marsh will be updated Blood in the urine 1 liter of O2 now but will need a higher level when he is working out CT chest and ABG reviewed 11/25/20: ABG is pending from not being drawn yet CT of the chest will be performed, Dr. Schrader has been updated Bowels moved yesterday 11/24/20: Venofer IV started and I explained why I started that for him Will check CT scan of chest tomorrow and consult Dr Schrader Labs and ABG ordered as well Still very tachypneic with conversation and at rest Monitoring BP 2L/min 11/23/20: No orthostasis today Worked with PT OT BM++ O2 maintained 11/22/20: Hgb 8.6 today Feels better since IVF 500cc yesterday and changed cardiac meds by Dr Cisneros [place] was born and he is thrilled about that Valdes cath still in place Fecal incontinence noted RT left him without O2 since he was good BRIEFLY on room air after Nebs for 1 hour and spot checked and he was at 85% and he was very short of breath just resting 11/21/20: Had episode of hypotension 76/40 with symptoms when got to edge of bed so laid back down, Cardiology notified and given 500cc of IVF Patient is on a waiver due to COVID and hypoxia for slow therapy and only 120 minutes per day Cardizem CD 120mg now after changed by Dr Cisneros ECHO done Stopped Lasix Valdes cath remains in place Review of Systems General: Fatigue, Malaise Pulmonary: Dyspnea, Cough Neurological: Weakness, Incoordination Objective Exam Vital Signs Vital Signs Date Time Temp Pulse Resp B/P (MAP) Pulse Ox O2 Delivery O2 Flow Rate FiO2 12/12/20 21:39 Nasal Cannula 2.00 12/12/20 18:00 36.9 77 18 105/70 (82) 100 Capillary Refill : Less Than 3 Seconds General Appearance: No Apparent Distress, WD/WN, Chronically ill, Thin HEENT: PERRL/EOMI, Normal ENT Inspection, Pharynx Normal Neck: Full Range of Motion, Normal Inspection, Non Tender, Supple, Carotid Bruit Respiratory: Chest Non Tender, Lungs Clear, No Respiratory Distress, Accessory Muscle Use, Decreased Breath Sounds Cardiovascular: Regular Rate, Rhythm, No Edema, No Gallop, No JVD, No Murmur, Normal Peripheral Pulses Gastrointestinal: Normal Bowel Sounds, No Organomegaly, No Pulsatile Mass, Non Tender, Soft Back: Normal Inspection, No CVA Tenderness, No Vertebral Tenderness Extremity: Normal Capillary Refill, Normal Inspection, Normal Range of Motion, Non Tender, No Calf Tenderness, No Pedal Edema Neurologic/Psychiatric: Alert, Oriented x3, No Motor/Sensory Deficits, Normal Mood/Affect, Motor Weakness (generalized 2/5 lower extremities, 3/5 upper extremities) Skin: Normal Color, Warm/Dry Lymphatic: No Adenopathy Results/Procedures Lab Patient resulted labs reviewed. FIM Transfers Therapy Code Descriptions/Definitions Functional [place] Measure: 0=Not Assessed/NA 4=Minimal Assistance 1=Total Assistance 5=Supervision or Setup 2=Maximal Assistance 6=Modified [place] 3=Moderate Assistance 7=Complete IndependenceSCALE: Activities may be completed with or without assistive devices. 2-Orggywqgmd-bhheuvg completes the activity by him/herself with no assistance from a helper. 5-Set-up or Clean-up Assistance-helper sets up or cleans up; patient completes activity. [place] assists only prior to or following the activity. 4-Supervision or Touching Assistance-helper provides verbal cues and/or touching/steadying and/or contact guard assistance as patient completes activity. Assistance may be provided throughout the activity or intermittently. 3-Partial/Moderate Assistance-helper does LESS THAN HALF the effort. [place] lifts, holds or supports trunk or limbs, but provides less than half the effort. 2-Substantial/Maximal Assistance-helper does MORE THAN HALF the effort. [place] lifts or holds trunk or limbs and provides more than half the effort. 1-Urrjakjtg-lglyer does ALL the effort. Patient does none of the effort to complete the activity. Or, the assistance of 2 or more helpers is required for the patient to complete the activity. If activity was not attempted, code reason: 7-Patient Refused. 9-Not Applicable-not attempted and the patient did not perform the activity before the current illness, exacerbation or injury. 10-Not Attempted due to Environmental Limitations-(lack of equipment, weather restraints, etc.). 88-Not Attempted due to Medical Conditions or Safety Concerns. Roll Left to Right (QC): 5 Sit to Lying (QC): 4 Sit to Stand (QC): 3 Chair/Hab-sh-Pfwox Xfer(QC): 3 Car Transfer (QC): 2 Gait Training Does the Patient Walk?: No and Walking Goal IS indicated Walk 10 feet (QC): 88 Walk 50 ft with 2 Turns(QC): 88 Walk 150 ft (QC): 88 Walking 10ft/uneven surface-QC: 88 Wheelchair Training Does the Pt Use a Wheelchair?: Yes Wheel 50 ft with 2 turns (QC): 5 Wheel 150 ft (QC): 5 Type of Wheelchair: Manual Stair Training 1 Step (curb) (QC): 88 4 Steps (QC): 88 12 Steps (QC): 88 Balance Picking up an Object (QC): 88 ADL-Treatment Eating (QC): 6 Oral Hygiene (QC): 6 Bathing Location: L Arm, R Arm, L Upper Leg, R Upper Leg, L Lower Leg (including foot), R Lower Leg (including foot), Chest, Abdomen, Perineal Area Shower/Bathe Self (QC): 3 Upper Body Dressing (QC): 3 Lower Body Dressing (QC): 2 On/Off Footwear (QC): 2 Toileting Hygiene (QC): 1 Toilet Transfer (QC): 1 Assessment/Plan Assessment and Plan Assess & Plan/Chief Complaint Assessment: Myopathy COVID-19 PNA Urinary retention Valdes cath in place Bowel incontinence Hypoxia O2 dependent BPH Frail Advanced age Sputum colonized with MRSA and ESBL Plan: IRF protocol but 120 minutes per day to accommodate hypoxia at activity Palatine meds Melatonin at night 11/21/20: s/o IVF Monitor hypotension and hypoxia Appreciate Dr Blayne QUIJANO done Add Remeron for sleep with Melatonin 11/22/20: No possibility of weaning O2 for now with this patient so needs on 21/06 and will update RT Increase activity 11/23/20: Maintain O2 Nebs Monitor BP 11/24/20: Venofer Labs and ABG and CT chest in am Dr Schrader consultation Maintain O2 Very fragile lungs 11/25/20: CT chest ABG Dr Schrader consultation 11/26/20: Dr Schrdaer appreciated Dr Marsh appreciated 11/27/20: Dr Marsh appreciated Monitor O2 11/28/20: Valdes cath in place Midline Venofer 11/29/20: Midline flushes Venofer Monitor closely Dramatic improvement 11/30/20: Dramatic improvement continues Monitor closely Increase O2 with therapy 12/01/20: Bowel incontinence could complicate DC plans Monitor urinary retention closely 12/02/20: Manage B/B incontinence Improved status Labs good 12/03/20: Improved insomnia Continue treatment B/B incontinence 12/04/20: TURP next Wed Hold OAC as of Wednesday Conferred with Dr Marsh and patient 12/05/20: Improved transfers Monitor closely O2 Incontinence management 12/06/20: Steady improvement TURP Wed Hold OAC as of Wednesday morning 12/07/20: Await second sputum Monitor closely O2 BM 12/08/20: TURP Wed Hold OAC Monitor closely Labs in am 12/09/20: TURP Wednesday Monitor closely 12/10/20: TURP tomorrow Monitor closely 2 units of blood today 12/12/20: Belladonna suppositories Monitor labs Hold OAC (1) Myopathy (2) COVID-19 (3) Hypoxia (4) Urinary retention (5) Valdes catheter in place (6) BPH (benign prostatic hyperplasia) (7) Bowel incontinence (8) Supplemental oxygen dependent (9) Advanced age (10) Frailty BARB COLLINS DO Dec 12, 2020 12:13
--- NOTE | 2020-12-12 14:00 | NUR ---
Patient returned from Leave of absence. Report received form JOSE R Arriaga. New orders acknowledged. Patient brought to floor in bed per therapy staff. Patient continues on CBI. No pain reported at this time.
--- NOTE | 2020-12-12 14:59 | Occ Therapy Progress Note ---
Therapy Progress Note Late entry 12/11/2020-Pt off of floor for procedure then to 4th floor for recovery and monitoring. Will resume OT when pt is on ARU. VIOLET BACA Dec 12, 2020 14:59
--- NOTE | 2020-12-12 15:07 | Occupational Ther Daily Note ---
OT Current Status-Daily Note Subjective Pt alert, lying in bed. Pt agrees to therapy. Pt c/o pain in groin area due to TURP on 12/11/2020, did not rate. Mental Status/Objective Patient Orientation: Person, Place, Time, Situation Attachments: Mejia Catheter, IV, SCD's ADL-Treatment Therapy Code Descriptions/Definitions Functional [place] Measure: 0=Not Assessed/NA 4=Minimal Assistance 1=Total Assistance 5=Supervision or Setup 2=Maximal Assistance 6=Modified [place] 3=Moderate Assistance 7=Complete IndependenceSCALE: Activities may be completed with or without assistive devices. 5-Ieulftbufa-gpadlgd completes the activity by him/herself with no assistance from a helper. 5-Set-up or Clean-up Assistance-helper sets up or cleans up; patient completes activity. [place] assists only prior to or following the activity. 4-Supervision or Touching Assistance-helper provides verbal cues and/or touching/steadying and/or contact guard assistance as patient completes activity. Assistance may be provided throughout the activity or intermittently. 3-Partial/Moderate Assistance-helper does LESS THAN HALF the effort. [place] lifts, holds or supports trunk or limbs, but provides less than half the effort. 2-Substantial/Maximal Assistance-helper does MORE THAN HALF the effort. [place] lifts or holds trunk or limbs and provides more than half the effort. 3-Tmkxkdpxj-ibssyx does ALL the effort. Patient does none of the effort to complete the activity. Or, the assistance of 2 or more helpers is required for the patient to complete the activity. If activity was not attempted, code reason: 7-Patient Refused. 9-Not Applicable-not attempted and the patient did not perform the activity before the current illness, exacerbation or injury. 10-Not Attempted due to Environmental Limitations-(lack of equipment, weather restraints, etc.). 88-Not Attempted due to Medical Conditions or Safety Concerns. Toileting Hygiene (QC): 1 Other Treatment OT/PT co-treat ([id number]), skills of 2 clinicians required for skilled care and instruction due to pt's pain level, decreased mobility, decreased activity tolerance. PT focusing on bed mobility and B LE strengthening while OT focused on B UE arm placement during bed mobility, toileting and B UE strengthening. Assisted pt to transfer from 4th floor to ARU in hospital bed. Pt able to follow skilled instructions to complete B UE strengthening against gravity, 1 set 12 reps. Pt then was able to roll side to side then assist to stay on R side while bed lamar was placed. Pt required assist to cleanse after small BM. With bed tilted head down, pt able to scoot self up in bed with bed rails and feet. After session, pt lying in bed with call light/phone in reach. All needs met in room. OT Short Term Goals Short Term Goals Time Frame: Dec 11, 2020 Shower/bathe self: 4 Upper body dressin Lower body dressin OT Long-Term Goals Audograph Operator Goals Time Frame: Dec 20, 2020 Eating (QC): 6 Oral Hygiene (QC): 6 Toileting Hygiene (QC): 6 Shower/Bathe Self (QC): 6 Upper Body Dressing (QC): 6 Lower Body Dressing (QC): 6 On/Off Footwear (QC): 6 Additional Goals: 1-Demonstrate ADL Tasks, 2-Verbalize Understanding, 3- ImproveStrength/Leti 1=Demonstrate adherence to instructed precautions during ADL tasks. 2=Patient will verbalize/demonstrate understanding of assistive devices/modifications for ADL. 3=Patient will improve strength/tolerance for activity to enable patient to perform ADL's. OT Education/Plan Problem List/Assessment Assessment: Decreased Activ Tolerance, Decreased UE Strength, Dependent Transfers, Impaired Self-Care Skills Discharge Recommendations Plan/Recommendations: Continue POC Treatment Plan/Plan of Care Patient would benefit from OT for education, treatment and training to promote independence in ADL's, mobility, safety and/or upper extremity function for ADL's. Plan of Care: ADL Retraining, Functional Mobility, Group Exercise/Act as Ind, UE Funct Exercise/Act Treatment Duration: Dec 20, 2020 Frequency: Modified Program (IRF) Estimated Hrs Per Day: 1 hour per day Rehab Potential: Fair Time/GCodes Start Time: 14:00 Stop Time: 15:00 Total Time Billed (hr/min): 60 Billed Treatment Time 1 visit-FA 1 (20 min) EX 3 (40 min) co-treat with PT [id number] VIOLET BACA Dec 12, 2020 15:07
[2020-12-12] MEDS: BELLADONNA ALK/OPIUM (B & O) 30 MG SUPP PR PRN ×2 (15:10→21:01)
--- NOTE | 2020-12-12 15:45 | Physical Therapy Daily Note ---
PT Daily Note-Current Subjective Agreeable to PT. Expresses limited ability to mobilize due to TURP on 12/11/2020. AGrees to bed activities and mobility. Transfers SCALE: Activities may be completed with or without assistive devices. 7-Xstaudldog-msadlnn completes the activity by him/herself with no assistance from a helper. 5-Set-up or Clean-up Assistance-helper sets up or cleans up; patient completes activity. [place] assists only prior to or following the activity. 4-Supervision or Touching Assistance-helper provides verbal cues and/or touching/steadying and/or contact guard assistance as patient completes activity. Assistance may be provided throughout the activity or intermittently. 3-Partial/Moderate Assistance-helper does LESS THAN HALF the effort. [place] lifts, holds or supports trunk or limbs, but provides less than half the effort. 2-Substantial/Maximal Assistance-helper does MORE THAN HALF the effort. [place] lifts or holds trunk or limbs and provides more than half the effort. 5-Kdwtkqpft-hwgfle does ALL the effort. Patient does none of the effort to complete the activity. Or, the assistance of 2 or more helpers is required for the patient to complete the activity. If activity was not attempted, code reason: 7-Patient Refused. 9-Not Applicable-not attempted and the patient did not perform the activity before the current illness, exacerbation or injury. 10-Not Attempted due to Environmental Limitations-(lack of equipment, weather restraints, etc.). 88-Not Attempted due to Medical Conditions or Safety Concerns. Roll Left & Right (QC): 4 Weight Bearing Full Weight Bearing Full Weight Bearing Exercises Supine Ex: Ankle pumps, Quad Set, Glut sets, Heel Slides, Short Arc Quads, Straight leg raise, Hip abd/add Supine Reps: 12 (LE strength to promote functional transfers and gait progression. ) Treatments OT/PT co-treat ([id number]), skills of 2 clinicians required for skilled care and instruction due to pt's pain level, decreased mobility, decreased activity tolerance. PT focusing on bed mobility and B LE strengthening while OT focused on B UE arm placement during bed mobility, toileting and B UE strengthening. Assisted pt to transfer from 4th floor to ARU in hospital bed. Pt able to follow skilled instructions to complete B LE strengthening Pt then was able to roll side to side then assist to stay on R side while bed lamar was placed. Pt required assist to cleanse after small BM. With bed tilted head down, pt able to scoot self up in bed with bed rails and feet. After session, pt lying in bed with call light/phone in reach. All needs met in room. Assessment Current Status: Good Progress Pt motivated; Progressing well. PT Short Term Goals Short Term Goals Time Frame: Nov 27, 2020 Roll Left & Right: 3 Sit to lyin Lying to sitting on side of be: 3 Sit to stand: 3 Chair/jcn-zj-aafgz transfer: 3 Walk 10 feet: 3 PT Fpc Goals Fpc Goals PT Casting [employer] Locker Room Servicer Goals Time Frame: Dec 11, 2020 Roll Left & Right (QC): 4 Sit to Lying (QC): 4 Lying-Sitting on Side/Bed(QC): 4 Sit to Stand (QC): 4 Chair/Zve-qy-Feufo Xfer(QC): 4 Toilet Transfer (QC): 4 Car Transfer (QC): 3 Does the Patient Walk: Yes Walk 10 feet (QC): 3 Walk 50ft with 2 Turns (QC): 3 Walk 150 ft (QC): 88 Walking 10ft on Uneven Surface: 3 1 Step (curb) (QC): 3 4 Steps (QC): 88 12 Steps (QC): 88 Picking up an Object (QC): 88 Wheel 50 feet with 2 turns (QC: 6 Wheel 150 feet: 6 PT Plan Problem List Problem List: Activity Tolerance, Functional Strength, Safety, Balance, Gait, Transfer, Bed Mobility Treatment/Plan Treatment Plan: Continue Plan of Care Treatment Plan: Bed Mobility, Education, Functional Activity Leti, Functional Strength, Group Therapy, Gait, Safety, Therapeutic Exercise, Transfers Treatment Duration: Dec 11, 2020 Frequency: Modified Program (IRF) Estimated Hrs Per Day: 1 hour per day Patient and/or Family Agrees t: Yes Safety Risks/Education Patient Education: Safety Issues Teaching Recipient: Patient Teaching Methods: Discussion Response to Teaching: Verbalize Understanding Discharge Recommendations Therapy Discharge Recommendati: Post Acute PT Time/GCodes Time In: 1400 Time Out: 1500 Total Billed Treatment Time: 60 Total Billed Treatment visit FA 30 EX 30 Co treat 60 VIOLET VARMA PT Dec 12, 2020 15:44
[2020-12-12] MEDS: ROFLUMILAST 500 MCG TAB (DALIRESP) NG SCH ×2 (16:36→16:42)
[2020-12-12] MEDS: CYANOCOBALAMIN 1,000 MCG (VITAMIN B-12) TABLET NG SCH ×2 (16:36→16:42)
[2020-12-12] MEDS: LACTOBACILLUS ACIDOPHILUS (PROBIOTIC) CAPSULE PO SCH ×4 (16:36→20:56)
[2020-12-12] MEDS: polyethylene glycoL POWDER 17 GM (MIRALAX) PACK PO SCH ×4 (16:37→20:59)
[2020-12-12] MEDS: FOLIC ACID 1 MG TAB PO SCH ×2 (16:37→16:43)
[2020-12-12] MEDS: meTOprolol TARTRATE 25 MG (LOPRESSOR) TABLET PO SCH ×4 (16:37→20:58)
[2020-12-12] MEDS: TAMSULOSIN 0.4 MG (FLOMAX) CAP PO SCH ×4 (16:37→20:57)
[2020-12-12] MEDS: LORATADINE (CLARITIN) 10 MG TAB PO SCH ×2 (16:37→16:42)
[2020-12-12] MEDS: DOCUSATE SODIUM 100 MG (COLACE) CAP PO SCH ×4 (16:37→20:58)
[2020-12-12] MEDS: NYSTATIN CREAM (MYCOSTATIN) 30 GM TUBE TP SCH ×5 (16:38→20:59)
[2020-12-12] MEDS: MONTELUKAST 10 MG (SINGULAIR) TAB PO SCH ×2 (16:38→16:42)
[2020-12-12] MEDS: CATHETER FLUSH 10 ML SYR IV SCH ×5 (16:38→21:01)
[2020-12-12] MEDS: PANTOPRAZOLE 40 MG (PROTONIX) TAB PO SCH ×2 (16:38→16:42)
[2020-12-12] MEDS: MELATONIN 10 MG TABLET PO SCH ×2 (16:38→20:57)
[2020-12-12] MEDS: SENNA W/DOCUSATE (SENOKOT S) TABLET PO SCH ×4 (16:38→20:58)
[2020-12-12] MEDS: MICONAZOLE 2% POWDER (DESENEX AF) 90 GM TOP SCH ×4 (16:38→20:59)
[2020-12-12] MEDS: FINASTERIDE (PROSCAR) 5 MG TAB PO SCH ×2 (16:38→16:42)
[2020-12-12] MEDS: RT-ALBUTEROL/IPRATROPIUM 3 ML (DUONEB) VIAL IH SCH ×2 (16:39→19:21)
[2020-12-12] MEDS: MIRTAZAPINE 15 MG (REMERON) TAB PO SCH ×2 (16:39→20:57)
[2020-12-12] MEDS: ADVAIR HFA 115/21 MCG INHALER 8 GM IH SCH ×2 (16:39→19:23)
[2020-12-12] MEDS: predniSONE 10 MG TAB PO SCH (16:39)
[2020-12-12 18:00] VITALS: BP 105/70
[2020-12-13] MEDS: BELLADONNA ALK/OPIUM (B & O) 30 MG SUPP PR PRN ×2 (03:24→11:09)
[2020-12-13 05:59] VITALS: BP 95/58
[2020-12-13] MEDS: CATHETER FLUSH 10 ML SYR IV SCH ×3 (06:08→21:21)
[2020-12-13] MEDS: predniSONE 10 MG TAB PO SCH (06:08)
[2020-12-13 06:56] LABS: BASOPHILS # (AUTO) 0.1 10^3/uL (0.0-0.1); BASOPHILS % (AUTO) 1 % (0-10); EOSINOPHILS # (AUTO) 0.1 10^3/uL (0.0-0.3); EOSINOPHILS % (AUTO) 1 % (0-10); HEMATOCRIT 30 % (40-54); HEMOGLOBIN 9.6 g/dL (13.3-17.7); LYMPHOCYTES % (AUTO) 27 % (12-44); MEAN CORPUSCULAR HEMOGLOBIN 30 pg (25-34); MEAN CORPUSCULAR HGB CONC 32 g/dL (32-36); MEAN CORPUSCULAR VOLUME 94 fL (80-99); MEAN PLATELET VOLUME 8.6 fL (9.0-12.2); MONOCYTES # (AUTO) 0.7 10^3/uL (0.0-1.0); MONOCYTES % (AUTO) 6 % (0-12); NEUTROPHILS # (AUTO) 6.9 10^3/uL (1.8-7.8); NEUTROPHILS % (AUTO) 62 % (42-75); PLATELET COUNT 247 10^3/uL (130-400); WHITE BLOOD COUNT 11.1 10^3/uL (4.3-11.0)
[2020-12-13 07:17] LABS: ALANINE AMINOTRANSFERASE 13 U/L (0-55); ALBUMIN 2.4 GM/DL (3.2-4.5); ALKALINE PHOSPHATASE 77 U/L (40-136); BILIRUBIN,TOTAL 0.3 MG/DL (0.1-1.0); BUN/CREATININE RATIO 28; CALCIUM 8.5 MG/DL (8.5-10.1); CARBON DIOXIDE 23 MMOL/L (21-32); CHLORIDE 105 MMOL/L (98-107); CREATININE SERUM 0.65 MG/DL (0.60-1.30); GFR ESTIMATED > 60; GLUCOSE 91 MG/DL (70-105); POTASSIUM 4.1 MMOL/L (3.6-5.0); SODIUM 136 MMOL/L (135-145); TOTAL PROTEIN 4.6 GM/DL (6.4-8.2)
--- NOTE | 2020-12-13 07:17 | Occupational Ther Daily Note ---
OT Current Status-Daily Note Subjective Pt alert, lying in bed. Pt agrees to therapy. Mental Status/Objective Patient Orientation: Person, Place, Time, Situation Attachments: Mejia Catheter ADL-Treatment 1st session([id number])Pt able to open containers and packages then use regular utensils to eat. Working on bed mobility. Tilting bed downward, pt able to pull and shift self up to HOB. After session, pt eating breakfast in bed with call light/phone in reach. All needs met in room. 2nd qjyudap-Vm-gaeaq with PT (799-), skills of 2 clinicians required due to increased SOA, decreased activity tolerance and need of skilled instruction and care for all mobility. PT focusing on mobility and transfers while OT focused on ADLs and hand placement during mobility. Pt agrees to shower. Supine to sitting EOB, min A. Assist x2 for SPT to shower chair with cutout. Transported to shower with chair. Pt completed shower after setup using hand held shower, grabbars, shower chair and long handle sponge. Pt able to reach all areas except buttocks. Pt takes increased time due to increased SOA and O2 levels. Assist x2 to transfer from shower chair to bed. Min A with B LE's to lift into bed. Pt completed oral care lying in bed after KEANE gathered supplies. After session, pt sitting in recliner with call light/phone in reach. Left in care of PT. All needs met in room. Therapy Code Descriptions/Definitions Functional [place] Measure: 0=Not Assessed/NA 4=Minimal Assistance 1=Total Assistance 5=Supervision or Setup 2=Maximal Assistance 6=Modified [place] 3=Moderate Assistance 7=Complete IndependenceSCALE: Activities may be completed with or without assistive devices. 3-Slwyprotbj-xhxpsee completes the activity by him/herself with no assistance from a helper. 5-Set-up or Clean-up Assistance-helper sets up or cleans up; patient completes activity. [place] assists only prior to or following the activity. 4-Supervision or Touching Assistance-helper provides verbal cues and/or touching/steadying and/or contact guard assistance as patient completes acti vity. Assistance may be provided throughout the activity or intermittently. 3-Partial/Moderate Assistance-helper does LESS THAN HALF the effort. [place] lifts, holds or supports trunk or limbs, but provides less than half the effort. 2-Substantial/Maximal Assistance-helper does MORE THAN HALF the effort. [place] lifts or holds trunk or limbs and provides more than half the effort. 2-Fofuuvfjb-ksbred does ALL the effort. Patient does none of the effort to complete the activity. Or, the assistance of 2 or more helpers is required for the patient to complete the activity. If activity was not attempted, code reason: 7-Patient Refused. 9-Not Applicable-not attempted and the patient did not perform the activity before the current illness, exacerbation or injury. 10-Not Attempted due to Environmental Limitations-(lack of equipment, weather restraints, etc.). 88-Not Attempted due to Medical Conditions or Safety Concerns. Eating (QC): 6 Oral Hygiene (QC): 6 Shower/Bathe Self (QC): 3 OT Short Term Goals Short Term Goals Time Frame: Dec 11, 2020 Shower/bathe self: 4 Upper body dressin Lower body dressin OT Medical Physicist Goals Medical Physicist Goals Time Frame: Dec 20, 2020 Eating (QC): 6 Oral Hygiene (QC): 6 Toileting Hygiene (QC): 6 Shower/Bathe Self (QC): 6 Upper Body Dressing (QC): 6 Lower Body Dressing (QC): 6 On/Off Footwear (QC): 6 Additional Goals: 1-Demonstrate ADL Tasks, 2-Verbalize Understanding, 3- ImproveStrength/Leti 1=Demonstrate adherence to instructed precautions during ADL tasks. 2=Patient will verbalize/demonstrate understanding of assistive devices/modifications for ADL. 3=Patient will improve strength/tolerance for activity to enable patient to perform ADL's. OT Education/Plan Problem List/Assessment Assessment: Decreased Activ Tolerance, Decreased UE Strength, Dependent Transfers, Impaired Self-Care Skills Discharge Recommendations Plan/Recommendations: Continue POC Treatment Plan/Plan of Care Patient would benefit from OT for education, treatment and training to promote independence in ADL's, mobility, safety and/or upper extremity function for ADL's. Plan of Care: ADL Retraining, Functional Mobility, Group Exercise/Act as Ind, UE Funct Exercise/Act Treatment Duration: Dec 20, 2020 Frequency: Modified Program (IRF) Estimated Hrs Per Day: 1 hour per day Rehab Potential: Fair Time/GCodes Start Time: 07:00 ([id number]) Stop Time: 08:30 ([id number]) Total Time Billed (hr/min): 75 Billed Treatment Time 2 visits-FA 3 (45 min) ADL 2 (30 min) VIOLET BACA Dec 13, 2020 07:17
--- NOTE | 2020-12-13 08:58 | Physical Therapy Daily Note ---
PT Daily Note-Current Subjective Pt sitting in shower chair after working with OT. Pt agrees to Pt/OT co-treat for part of tx then individual. Pain Location: No Pain Reported Mental Status Patient Orientation: Person, Place, Situation Attachments: Mejia Catheter Transfers SCALE: Activities may be completed with or without assistive devices. 3-Uoxjdahuln-afdcuzn completes the activity by him/herself with no assistance from a helper. 5-Set-up or Clean-up Assistance-helper sets up or cleans up; patient completes activity. [place] assists only prior to or following the activity. 4-Supervision or Touching Assistance-helper provides verbal cues and/or touching/steadying and/or contact guard assistance as patient completes activity. Assistance may be provided throughout the activity or intermittently. 3-Partial/Moderate Assistance-helper does LESS THAN HALF the effort. [place] lifts, holds or supports trunk or limbs, but provides less than half the effort. 2-Substantial/Maximal Assistance-helper does MORE THAN HALF the effort. [place] lifts or holds trunk or limbs and provides more than half the effort. 0-Dxmqlless-nvlpnb does ALL the effort. Patient does none of the effort to complete the activity. Or, the assistance of 2 or more helpers is required for the patient to complete the activity. If activity was not attempted, code reason: 7-Patient Refused. 9-Not Applicable-not attempted and the patient did not perform the activity before the current illness, exacerbation or injury. 10-Not Attempted due to Environmental Limitations-(lack of equipment, weather restraints, etc.). 88-Not Attempted due to Medical Conditions or Safety Concerns. Sit to Lying (QC): 4 Sit to Stand (QC): 3 Chair/Aeh-sh-Mmndy Xfer(QC): 4 Weight Bearing Full Weight Bearing Full Weight Bearing Exercises Supine Ex: Ankle pumps, Quad Set, Glut sets, Heel Slides, Straight leg raise, Hip abd/add Supine Reps: 15 (15 reps/2 sets per EX) Treatments Co-treat with PT (0800-830), skills of 2 clinicians required due to increased SOA, decreased activity tolerance and need of skilled instruction and care for all mobility. PT focusing on mobility and transfers while OT focused on ADLs and hand placement during mobility. Pt agrees to shower. Supine to sitting EOB, min A. Assist x2 for SPT to shower chair with cutout. Transported to shower with chair. Pt completed shower after setup using hand held shower, grabbars, shower chair and long handle sponge. Pt able to reach all areas except buttocks. Pt takes increased time due to increased SOA and O2 levels. Assist x2 to transfer from shower chair to bed. Min A with B LE's to lift into bed. Pt completed oral care lying in bed after KEANE gathered supplies. 800-830: Completes Supine Ex in bed x2 sets. Pt resting in bed with all needs met, call light in hand at end of tx. Assessment Current Status: Fair Progress Pt not feeling well this morning. O2 is lingering around upper 80's to low 90's to activity. Pulse rate was low after shower than jump high before calming down and staying in mid 60's during tx. PT Short Term Goals Short Term Goals Time Frame: Nov 27, 2020 Roll Left & Right: 3 Sit to lyin Lying to sitting on side of be: 3 Sit to stand: 3 Chair/itl-sq-lmdzu transfer: 3 Walk 10 feet: 3 PT Senior Care Goals Senior Care Goals PT Nuclear Plant Operator Goals Time Frame: Dec 11, 2020 Roll Left & Right (QC): 4 Sit to Lying (QC): 4 Lying-Sitting on Side/Bed(QC): 4 Sit to Stand (QC): 4 Chair/Lmw-bu-Jzmoj Xfer(QC): 4 Toilet Transfer (QC): 4 Car Transfer (QC): 3 Does the Patient Walk: Yes Walk 10 feet (QC): 3 Walk 50ft with 2 Turns (QC): 3 Walk 150 ft (QC): 88 Walking 10ft on Uneven Surface: 3 1 Step (curb) (QC): 3 4 Steps (QC): 88 12 Steps (QC): 88 Picking up an Object (QC): 88 Wheel 50 feet with 2 turns (QC: 6 Wheel 150 feet: 6 PT Plan Problem List Problem List: Activity Tolerance, Functional Strength, Transfer Treatment/Plan Treatment Plan: Continue Plan of Care Treatment Plan: Bed Mobility, Education, Functional Activity Leti, Functional Strength, Group Therapy, Gait, Safety, Therapeutic Exercise, Transfers Treatment Duration: Dec 11, 2020 Frequency: Modified Program (IRF) Estimated Hrs Per Day: 1 hour per day Patient and/or Family Agrees t: Yes Safety Risks/Education Patient Education: Correct Positioning, Safety Issues Teaching Recipient: Patient Teaching Methods: Discussion Response to Teaching: Verbalize Understanding Time/GCodes Time In: 800 Time Out: 900 Total Billed Treatment Time: 60 Total Billed Treatment 1, FA x2 (30m) & EX x2 (30m) Co-treat w/OT 30m ([id number]) KARYN BAKER LITHOGRAPHIC PLATEMAKER Dec 13, 2020 08:58
--- NOTE | 2020-12-13 09:17 | NUR ---
PATIENT 87% ON RA, ENCOURAGED TO TAKE DEEP BREATHS-INCREASED TO 89% ON RA. SPO2 94%02@2L . DR MA HERE TO ASSESS PATIENT. REPORTED OUTPUT AND URINE ASSESSMENT FROM NOC SHIFT-NO CLOTS, URINE CLEAR. ORDERS TO INTERMITTENT CBI. PATIENT EDUCATED ON ORDERS. REQUESTS SUPPOSITORY FOR PAIN 5/10 IN LOWER ABDOMINAL REGION. ABDOMEN SOFT, NON TENDER. URINE IS PINK WITH NO CLOTS NOTED. PATIENT IS FALLING ASLEEP DURING ASSESSMENT. Addendum: 12/13/20 at 0925 by KARYN SAMANIEGO RN PHARMACY NOTIFIED OF ORDER CHANGE OF MEDICATIONS B12 AND ROFLUMILAST FROM NG TO PO. MEDICATION EDITS OCCURRED; ADMIN DAVID 12/14, THIS RN HAD TO DO UNSCH ADMIN FOR TODAY'S DOSE; UNABLE TO SCAN FOR UNSCH ADMIN.
--- NOTE | 2020-12-13 09:23 | Progress Note - Urology ---
Progress Note-Urology Progress Notes/Assess & Plan Progress/Assessment & Plan AFEBRILE, VSS. PASSING FLATTUS. ABDOMEN SOFT. LABS STABLE. URINE CLEAR. TRY OFF CBI. Final Diagnosis URINE RETENTION DENTON MA MD Dec 13, 2020 09:23
[2020-12-13 09:26] VITALS: BP 95/60
[2020-12-13] MEDS: ROFLUMILAST 500 MCG TAB (DALIRESP) PO SCH (09:27)
[2020-12-13] MEDS: MONTELUKAST 10 MG (SINGULAIR) TAB PO SCH (09:28)
[2020-12-13] MEDS: CYANOCOBALAMIN 1,000 MCG (VITAMIN B-12) TABLET PO SCH (09:28)
[2020-12-13] MEDS: PANTOPRAZOLE 40 MG (PROTONIX) TAB PO SCH (09:28)
[2020-12-13] MEDS: TAMSULOSIN 0.4 MG (FLOMAX) CAP PO SCH ×2 (09:28→21:19)
[2020-12-13] MEDS: FOLIC ACID 1 MG TAB PO SCH (09:28)
[2020-12-13] MEDS: LACTOBACILLUS ACIDOPHILUS (PROBIOTIC) CAPSULE PO SCH ×2 (09:28→21:19)
[2020-12-13] MEDS: DOCUSATE SODIUM 100 MG (COLACE) CAP PO SCH ×2 (09:28→21:19)
[2020-12-13] MEDS: FINASTERIDE (PROSCAR) 5 MG TAB PO SCH (09:28)
[2020-12-13] MEDS: meTOprolol TARTRATE 25 MG (LOPRESSOR) TABLET PO SCH ×2 (09:29→21:19)
[2020-12-13] MEDS: MICONAZOLE 2% POWDER (DESENEX AF) 90 GM TOP SCH ×2 (09:29→21:20)
[2020-12-13] MEDS: NYSTATIN CREAM (MYCOSTATIN) 30 GM TUBE TP SCH ×3 (09:29→21:20)
[2020-12-13] MEDS: SENNA W/DOCUSATE (SENOKOT S) TABLET PO SCH ×2 (09:29→21:19)
[2020-12-13] MEDS: polyethylene glycoL POWDER 17 GM (MIRALAX) PACK PO SCH ×2 (09:29→21:20)
--- NOTE | 2020-12-13 09:49 | PM&R Progress Note ---
Subjective HPI/CC On Admission Date Seen by Provider: Dec 13, 2020 Time Seen by Provider: 10:30 Subjective/Events-last exam 12/13/20: Dr Marsh assessed him to be doing well Slowing the CBI O2 2L/min wbc 11 Belladonna supp help his pain 12/12/20: s/p TURP Belladonna supp for pain Monitor labs Holding OAC Levaquin 500mg daily Appreciate Dr Marsh 12/10/20: TURP scheduled for tomorrow morning Receiving two units of blood in preparation for the surgery since there is blood loss during the surgery Remains on two liters of oxygen Overall feels like he is doing really well 12/09/20: Bowels moved after suppository yesterday Holding anticoagulation for TURP Hgb 8.7 s/p five doses of Venofer Overall feels pretty good 12/08/20: MRSA of sputum still present TURP Wed Holding OAC now for surgery Standing a bit on his own with sit to stand 12/07/20: Second sputum done and pending BM incontinent Hold Eliquis tomorrow in prep for TURP 2L/min O2 maintained Sit to stand is helpful 12/06/20/: Steady improvement Dr Pritchett Wednesday for toenail care Second sputum pending to get out of isolation BM today 12/05/20: BM today 2L/min BP low so will monitor closely Improved transfers Updated patient and his who was on the phone 12/04/20: Pt slept very well again Coughing up a little bit more sputum that does show MRSA and ESBL, will remain in isolation Valdes is back in Will have TURP on Wednesday, holding Eliquis on Wednesday Incontinence of bowels is noted Overall extremely improved 12/03/20: Discontinued catheter yesterday by Dr. 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 Up in chair today BM++ Good outlook O2 at 3L/min Increase O2 during therapies 11/29/20: No new issues Midline was placed now flushes maintained Much improved status Down to 1 L of oxygen Increased oxygen requirement with exercise Still with Valdes catheter in place Upright in wheelchair today Dramatic improvement 11/28/20: Slept a bit better Midline for Venofer will be placed Much improved status BSC today Valdes cath replaced 11/27/20: Pt remains on 1 liter per minute of oxygen Appears to be much improved today Cystoscope done today showing large prostate Proscar along with Flomax was initiated Cath was done and obtained 1000cc of urine Nystatin cream and powder will be initiated Overall much improved 11/26/20: Pt did not sleep last night due to urinary frequency Had to do straight in and out cath x4 last night Dr. Marsh will be updated Blood in the urine 1 liter of O2 now but will need a higher level when he is working out CT chest and ABG reviewed 11/25/20: ABG is pending from not being drawn yet CT of the chest will be performed, Dr. Schrader has been updated Bowels moved yesterday 11/24/20: Venofer IV started and I explained why I started that for him Will check CT scan of chest tomorrow and consult Dr Schrader Labs and ABG ordered as well Still very tachypneic with conversation and at rest Monitoring BP 2L/min 11/23/20: No orthostasis today Worked with PT OT BM++ O2 maintained 11/22/20: Hgb 8.6 today Feels better since IVF 500cc yesterday and changed cardiac meds by Dr Cisneros [facility] was born and he is thrilled about that Valdes cath still in place Fecal incontinence noted RT left him without O2 since he was good BRIEFLY on room air after Nebs for 1 hour and spot checked and he was at 85% and he was very short of breath just resting 11/21/20: Had episode of hypotension 76/40 with symptoms when got to edge of bed so laid back down, Cardiology notified and given 500cc of IVF Patient is on a waiver due to COVID and hypoxia for slow therapy and only 120 minutes per day Cardizem CD 120mg now after changed by Dr Cisneros ECHO done Stopped Lasix Valdes cath remains in place Review of Systems General: Fatigue, Malaise Pulmonary: Dyspnea Neurological: Weakness, Incoordination Objective Exam Vital Signs Vital Signs Date Time Temp Pulse Resp B/P (MAP) Pulse Ox O2 Delivery O2 Flow Rate FiO2 12/13/20 17:30 36.3 97 18 99/62 (74) 98 12/13/20 09:26 Nasal Cannula 2.00 Capillary Refill : Less Than 3 Seconds General Appearance: No Apparent Distress, WD/WN, Chronically ill, Thin HEENT: PERRL/EOMI, Normal ENT Inspection, Pharynx Normal Neck: Full Range of Motion, Normal Inspection, Non Tender, Supple, Carotid Bruit Respiratory: Chest Non Tender, Lungs Clear, No Respiratory Distress, Accessory Muscle Use, Decreased Breath Sounds Cardiovascular: Regular Rate, Rhythm, No Edema, No Gallop, No JVD, No Murmur, Normal Peripheral Pulses Gastrointestinal: Normal Bowel Sounds, No Organomegaly, No Pulsatile Mass, Non Tender, Soft Back: Normal Inspection, No CVA Tenderness, No Vertebral Tenderness Extremity: Normal Capillary Refill, Normal Inspection, Normal Range of Motion, Non Tender, No Calf Tenderness, No Pedal Edema Neurologic/Psychiatric: Alert, Oriented x3, No Motor/Sensory Deficits, Normal Mood/Affect, Motor Weakness (generalized 2/5 lower extremities, 3/5 upper extremities) Skin: Normal Color, Warm/Dry Lymphatic: No Adenopathy Results/Procedures Lab Laboratory Tests 12/13/20 06:50 Patient resulted labs reviewed. FIM Transfers Therapy Code Descriptions/Definitions Functional [place] Measure: 0=Not Assessed/NA 4=Minimal Assistance 1=Total Assistance 5=Supervision or Setup 2=Maximal Assistance 6=Modified [place] 3=Moderate Assistance 7=Complete IndependenceSCALE: Activities may be completed with or without assistive devices. 8-Mllgmvdhbz-bquuefi completes the activity by him/herself with no assistance from a helper. 5-Set-up or Clean-up Assistance-helper sets up or cleans up; patient completes activity. [place] assists only prior to or following the activity. 4-Supervision or Touching Assistance-helper provides verbal cues and/or touching/steadying and/or contact guard assistance as patient completes a ctivity. Assistance may be provided throughout the activity or intermittently. 3-Partial/Moderate Assistance-helper does LESS THAN HALF the effort. Cost lifts, holds or supports trunk or limbs, but provides less than half the effort. 2-Substantial/Maximal Assistance-helper does MORE THAN HALF the effort. Cost lifts or holds trunk or limbs and provides more than half the effort. 7-Zssbxrqet-wsnvup does ALL the effort. Patient does none of the effort to complete the activity. Or, the assistance of 2 or more helpers is required for the patient to complete the activity. If activity was not attempted, code reason: 7-Patient Refused. 9-Not Applicable-not attempted and the patient did not perform the activity before the current illness, exacerbation or injury. 10-Not Attempted due to Environmental Limitations-(lack of equipment, weather restraints, etc.). 88-Not Attempted due to Medical Conditions or Safety Concerns. Roll Left to Right (QC): 4 Sit to Lying (QC): 4 Sit to Stand (QC): 3 Chair/Zyn-ue-Wksav Xfer(QC): 3 Car Transfer (QC): 2 Gait Training Does the Patient Walk?: No and Walking Goal IS indicated Walk 10 feet (QC): 88 Walk 50 ft with 2 Turns(QC): 88 Walk 150 ft (QC): 88 Walking 10ft/uneven surface-QC: 88 Wheelchair Training Does the Pt Use a Wheelchair?: Yes Wheel 50 ft with 2 turns (QC): 5 Wheel 150 ft (QC): 5 Type of Wheelchair: Manual Stair Training 1 Step (curb) (QC): 88 4 Steps (QC): 88 12 Steps (QC): 88 Balance Picking up an Object (QC): 88 ADL-Treatment Eating (QC): 6 Oral Hygiene (QC): 6 Bathing Location: L Arm, R Arm, L Upper Leg, R Upper Leg, L Lower Leg (including foot), R Lower Leg (including foot), Chest, Abdomen, Perineal Area Shower/Bathe Self (QC): 3 Upper Body Dressing (QC): 3 Lower Body Dressing (QC): 2 On/Off Footwear (QC): 2 Toileting Hygiene (QC): 1 Toilet Transfer (QC): 1 Assessment/Plan Assessment and Plan Assess & Plan/Chief Complaint Assessment: Myopathy COVID-19 PNA Urinary retention Valdes cath in place Bowel incontinence Hypoxia O2 dependent BPH Frail Advanced age Sputum colonized with MRSA and ESBL Plan: IRF protocol but 120 minutes per day to accommodate hypoxia at activity [place] meds Melatonin at night 11/21/20: s/o IVF Monitor hypotension and hypoxia Appreciate Dr Cisneros ECHO done Add Remeron for sleep with Melatonin 11/22/20: No possibility of weaning O2 for now with this patient so needs on 21/06 and will update RT Increase activity 11/23/20: Maintain O2 Nebs Monitor BP 11/24/20: Venofer Labs and ABG and CT chest in am Dr Schrader consultation Maintain O2 Very fragile lungs 11/25/20: CT chest ABG Dr Schrader consultation 11/26/20: Dr Schrader appreciated Dr Marsh appreciated 11/27/20: Dr Marsh appreciated Monitor O2 11/28/20: Valdes cath in place Midline Venofer 11/29/20: Midline flushes Venofer Monitor closely Dramatic improvement 11/30/20: Dramatic improvement continues Monitor closely Increase O2 with therapy 12/01/20: Bowel incontinence could complicate DC plans Monitor urinary retention closely 12/02/20: Manage B/B incontinence Improved status Labs good 12/03/20: Improved insomnia Continue treatment B/B incontinence 12/04/20: TURP next Wed Hold OAC as of Wednesday Conferred with Dr Marsh and patient 12/05/20: Improved transfers Monitor closely O2 Incontinence management 12/06/20: Steady improvement TURP Wed Hold OAC as of Wednesday morning 12/07/20: Await second sputum Monitor closely O2 BM 12/08/20: TURP Wed Hold OAC Monitor closely Labs in am 12/09/20: TURP Wednesday Monitor closely 12/10/20: TURP tomorrow Monitor closely 2 units of blood today 12/12/20: Belladonna suppositories Monitor labs Hold OAC 12/13/20: Dr Marsh appreciated Pain control O2 Monitor closely (1) Myopathy (2) COVID-19 (3) Hypoxia (4) Urinary retention (5) Valdes catheter in place (6) BPH (benign prostatic hyperplasia) (7) Bowel incontinence (8) Supplemental oxygen dependent (9) Advanced age (10) Frailty BARB COLLINS DO Dec 13, 2020 09:49
[2020-12-13] MEDS: ADVAIR HFA 115/21 MCG INHALER 8 GM IH SCH ×3 (10:16→22:00)
[2020-12-13] MEDS: RT-ALBUTEROL/IPRATROPIUM 3 ML (DUONEB) VIAL IH SCH ×2 (10:17→21:00)
[2020-12-13] MEDS: LORATADINE (CLARITIN) 10 MG TAB PO SCH (11:04)
[2020-12-13] MEDS: LEVOFLOXACIN 500 MG TAB (LEVAQUIN) PO SCH (11:07)
--- NOTE | 2020-12-13 12:50 | NUR ---
CM/SS PATIENT CARE CONFERENCE Reviewed Summary with patient and he is in agreement to continued stay with next team evaluation December 18. Patient continues to recover from his TURP and short leave of absence from [facility]U. Having issues with O2 desaturations. As of 12/11, he was able to stand/pivot/transfer and take a few steps. Wheelchair mobility was reportedly improving. He was, at that time, dependent x 2 for toileting. BARRIER to discharge planning remains patient's highest performance level as it relates to his spouse being his only caregiver.
--- NOTE | 2020-12-13 15:05 | Physical Therapy Daily Note ---
PT Daily Note-Current Subjective Pt sitting up in bed upon arrival. Pt reports fatigue but in good spirits. Pt agrees to PT. Pt asks LANDSCAPING SPECIALIST to assist with getting Zoom call set up with SP before end of tx. Pain Location: No Pain Reported Mental Status Patient Orientation: Person, Place, Situation Attachments: Oxygen, Mejia Catheter Transfers SCALE: Activities may be completed with or without assistive devices. 1-Ysvrynbozp-aweuudw completes the activity by him/herself with no assistance from a helper. 5-Set-up or Clean-up Assistance-helper sets up or cleans up; patient completes activity. [place] assists only prior to or following the activity. 4-Supervision or Touching Assistance-helper provides verbal cues and/or touching/steadying and/or contact guard assistance as patient completes activity. Assistance may be provided throughout the activity or intermittently. 3-Partial/Moderate Assistance-helper does LESS THAN HALF the effort. [place] lifts, holds or supports trunk or limbs, but provides less than half the effort. 2-Substantial/Maximal Assistance-helper does MORE THAN HALF the effort. [place] lifts or holds trunk or limbs and provides more than half the effort. 5-Vzqtmansr-gcupal does ALL the effort. Patient does none of the effort to complete the activity. Or, the assistance of 2 or more helpers is required for the patient to complete the activity. If activity was not attempted, code reason: 7-Patient Refused. 9-Not Applicable-not attempted and the patient did not perform the activity before the current illness, exacerbation or injury. 10-Not Attempted due to Environmental Limitations-(lack of equipment, weather restraints, etc.). 88-Not Attempted due to Medical Conditions or Safety Concerns. Weight Bearing Full Weight Bearing Full Weight Bearing Treatments Pt practices bed mobility before getting Zoom call set up. All needs met, call light in hand. Assessment Current Status: Good Progress Pt continues to gain strength for improved transfers. PT Short Term Goals Short Term Goals Time Frame: Nov 27, 2020 Roll Left & Right: 3 Sit to lyin Lying to sitting on side of be: 3 Sit to stand: 3 Chair/qrh-gc-udlud transfer: 3 Walk 10 feet: 3 PT Intermediate Goals Rn Residential Goals PT Rn Residential Goals Time Frame: Dec 11, 2020 Roll Left & Right (QC): 4 Sit to Lying (QC): 4 Lying-Sitting on Side/Bed(QC): 4 Sit to Stand (QC): 4 Chair/Lvc-ii-Dwacl Xfer(QC): 4 Toilet Transfer (QC): 4 Car Transfer (QC): 3 Does the Patient Walk: Yes Walk 10 feet (QC): 3 Walk 50ft with 2 Turns (QC): 3 Walk 150 ft (QC): 88 Walking 10ft on Uneven Surface: 3 1 Step (curb) (QC): 3 4 Steps (QC): 88 12 Steps (QC): 88 Picking up an Object (QC): 88 Wheel 50 feet with 2 turns (QC: 6 Wheel 150 feet: 6 PT Plan Problem List Problem List: Activity Tolerance Treatment/Plan Treatment Plan: Continue Plan of Care Treatment Plan: Bed Mobility, Education, Functional Activity Leti, Functional Strength, Group Therapy, Gait, Safety, Therapeutic Exercise, Transfers Treatment Duration: Dec 11, 2020 Frequency: Modified Program (IRF) Estimated Hrs Per Day: 1 hour per day Patient and/or Family Agrees t: Yes Safety Risks/Education Patient Education: Correct Positioning, Safety Issues Teaching Recipient: Patient Teaching Methods: Discussion Response to Teaching: Verbalize Understanding Time/GCodes Time In: 1400 Time Out: 1415 Total Billed Treatment Time: 15 Total Billed Treatment 1, FA (15m) KARYN BAKER PTA Dec 13, 2020 15:05
[2020-12-13 17:30] VITALS: BP 99/62
[2020-12-13] MEDS: MELATONIN 10 MG TABLET PO SCH (21:19)
[2020-12-13] MEDS: MIRTAZAPINE 15 MG (REMERON) TAB PO SCH (21:19)
--- NOTE | 2020-12-14 05:14 | PM&R Progress Note ---
Subjective HPI/CC On Admission Date Seen by Provider: Dec 14, 2020 Time Seen by Provider: 08:00 Subjective/Events-last exam 12/14/20: No longer taking Belladonna supp Urine cleared TBI DC Improved overall Holding OAC 12/13/20: Dr Marsh assessed him to be doing well Slowing the CBI O2 2L/min wbc 11 Belladonna supp help his pain 12/12/20: s/p TURP Belladonna supp for pain Monitor labs Holding OAC Levaquin 500mg daily Appreciate Dr Marsh 12/10/20: TURP scheduled for tomorrow morning Receiving two units of blood in preparation for the surgery since there is blood loss during the surgery Remains on two liters of oxygen Overall feels like he is doing really well 12/09/20: Bowels moved after suppository yesterday Holding anticoagulation for TURP Hgb 8.7 s/p five doses of Venofer Overall feels pretty good 12/08/20: MRSA of sputum still present TURP Wed Holding OAC now for surgery Standing a bit on his own with sit to stand 12/07/20: Second sputum done and pending BM incontinent Hold Eliquis tomorrow in prep for TURP 2L/min O2 maintained Sit to stand is helpful 12/06/20/: Steady improvement Dr Pritchett Wednesday for toenail care Second sputum pending to get out of isolation BM today 12/05/20: BM today 2L/min BP low so will monitor closely Improved transfers Updated patient and his who was on the phone 12/04/20: Pt slept very well again Coughing up a little bit more sputum that does show MRSA and ESBL, will remain in isolation Valdes is back in Will have TURP on Wednesday, holding Eliquis on Wednesday Incontinence of bowels is noted Overall extremely improved 12/03/20: Discontinued catheter yesterday by Dr. 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 Up in chair today BM++ Good outlook O2 at 3L/min Increase O2 during therapies 11/29/20: No new issues Midline was placed now flushes maintained Much improved status Down to 1 L of oxygen Increased oxygen requirement with exercise Still with Valdes catheter in place Upright in wheelchair today Dramatic improvement 11/28/20: Slept a bit better Midline for Venofer will be placed Much improved status BSC today Valdes cath replaced 11/27/20: Pt remains on 1 liter per minute of oxygen Appears to be much improved today Cystoscope done today showing large prostate Proscar along with Flomax was initiated Cath was done and obtained 1000cc of urine Nystatin cream and powder will be initiated Overall much improved 11/26/20: Pt did not sleep last night due to urinary frequency Had to do straight in and out cath x4 last night Dr. Marsh will be updated Blood in the urine 1 liter of O2 now but will need a higher level when he is working out CT chest and ABG reviewed 11/25/20: ABG is pending from not being drawn yet CT of the chest will be performed, Dr. Schrader has been updated Bowels moved yesterday 11/24/20: Venofer IV started and I explained why I started that for him Will check CT scan of chest tomorrow and consult Dr Schrader Labs and ABG ordered as well Still very tachypneic with conversation and at rest Monitoring BP 2L/min 11/23/20: No orthostasis today Worked with PT OT BM++ O2 maintained 11/22/20: Hgb 8.6 today Feels better since IVF 500cc yesterday and changed cardiac meds by Dr Cisneros [place] [facility] was born and he is thrilled about that Valdes cath still in place Fecal incontinence noted RT left him without O2 since he was good BRIEFLY on room air after Nebs for 1 hour and spot checked and he was at 85% and he was very short of breath just resting 11/21/20: Had episode of hypotension 76/40 with symptoms when got to edge of bed so laid back down, Cardiology notified and given 500cc of IVF Patient is on a waiver due to COVID and hypoxia for slow therapy and only 120 minutes per day Cardizem CD 120mg now after changed by Dr Cisneros ECHO done Stopped Lasdebbie Valdes cath remains in place Review of Systems General: Fatigue, Malaise Pulmonary: Dyspnea, Cough Neurological: Weakness Objective Exam Vital Signs Vital Signs Date Time Temp Pulse Resp B/P (MAP) Pulse Ox O2 Delivery O2 Flow Rate FiO2 12/15/20 05:43 36.6 75 17 115/77 (90) 95 Room Air 12/14/20 20:15 2.00 Capillary Refill : Less Than 3 Seconds General Appearance: No Apparent Distress, WD/WN, Chronically ill, Thin HEENT: PERRL/EOMI, Normal ENT Inspection, Pharynx Normal Neck: Full Range of Motion, Normal Inspection, Non Tender, Supple, Carotid Bruit Respiratory: Chest Non Tender, Lungs Clear, No Respiratory Distress, Accessory Muscle Use, Decreased Breath Sounds Cardiovascular: Regular Rate, Rhythm, No Edema, No Gallop, No JVD, No Murmur, Normal Peripheral Pulses Gastrointestinal: Normal Bowel Sounds, No Organomegaly, No Pulsatile Mass, Non Tender, Soft Back: Normal Inspection, No CVA Tenderness, No Vertebral Tenderness Extremity: Normal Capillary Refill, Normal Inspection, Normal Range of Motion, Non Tender, No Calf Tenderness, No Pedal Edema Neurologic/Psychiatric: Alert, Oriented x3, No Motor/Sensory Deficits, Normal Mood/Affect, Motor Weakness (generalized 2/5 lower extremities, 3/5 upper extremities) Skin: Normal Color, Warm/Dry Lymphatic: No Adenopathy Results/Procedures Lab Patient resulted labs reviewed. FIM Transfers Therapy Code Descriptions/Definitions Functional [place] Measure: 0=Not Assessed/NA 4=Minimal Assistance 1=Total Assistance 5=Supervision or Setup 2=Maximal Assistance 6=Modified [place] 3=Moderate Assistance 7=Complete IndependenceSCALE: Activities may be completed with or without assistive devices. 9-Lzfpshwdls-crprfwv completes the activity by him/herself with no assistance from a helper. 5-Set-up or Clean-up Assistance-helper sets up or cleans up; patient completes activity. [place] assists only prior to or following the activity. 4-Supervision or Touching Assistance-helper provides verbal cues and/or touching/steadying and/or contact guard assistance as patient completes activity. Assistance may be provided throughout the activity or intermittently. 3-Partial/Moderate Assistance-helper does LESS THAN HALF the effort. [place] lifts, holds or supports trunk or limbs, but provides less than half the effort. 2-Substantial/Maximal Assistance-helper does MORE THAN HALF the effort. [place] lifts or holds trunk or limbs and provides more than half the effort. 0-Gfqumydvl-sqtktk does ALL the effort. Patient does none of the effort to complete the activity. Or, the assistance of 2 or more helpers is required for the patient to complete the activity. If activity was not attempted, code reason: 7-Patient Refused. 9-Not Applicable-not attempted and the patient did not perform the activity bef ore the current illness, exacerbation or injury. 10-Not Attempted due to Environmental Limitations-(lack of equipment, weather r estraints, etc.). 88-Not Attempted due to Medical Conditions or Safety Concerns. Roll Left to Right (QC): 4 Sit to Lying (QC): 4 Sit to Stand (QC): 3 Chair/Brs-uy-Lqfdp Xfer(QC): 4 Car Transfer (QC): 2 Gait Training Does the Patient Walk?: No and Walking Goal IS indicated Walk 10 feet (QC): 88 Walk 50 ft with 2 Turns(QC): 88 Walk 150 ft (QC): 88 Walking 10ft/uneven surface-QC: 88 Wheelchair Training Does the Pt Use a Wheelchair?: Yes Wheel 50 ft with 2 turns (QC): 5 Wheel 150 ft (QC): 5 Type of Wheelchair: Manual Stair Training 1 Step (curb) (QC): 88 4 Steps (QC): 88 12 Steps (QC): 88 Balance Picking up an Object (QC): 88 ADL-Treatment Eating (QC): 6 Oral Hygiene (QC): 6 Bathing Location: L Arm, R Arm, L Upper Leg, R Upper Leg, L Lower Leg (includi ng foot), R Lower Leg (including foot), Chest, Abdomen, Perineal Area Shower/Bathe Self (QC): 3 Upper Body Dressing (QC): 3 Lower Body Dressing (QC): 2 On/Off Footwear (QC): 2 Toileting Hygiene (QC): 1 Toilet Transfer (QC): 1 Assessment/Plan Assessment and Plan Assess & Plan/Chief Complaint Assessment: Myopathy COVID-19 PNA Urinary retention Valdes cath in place Bowel incontinence Hypoxia O2 dependent BPH Frail Advanced age Sputum colonized with MRSA and ESBL Plan: IRF protocol but 120 minutes per day to accommodate hypoxia at activity [place] meds Melatonin at night 11/21/20: s/o IVF Monitor hypotension and hypoxia Appreciate Dr Cisneros ECHO done Add Remeron for sleep with Melatonin 11/22/20: No possibility of weaning O2 for now with this patient so needs on 21/06 and will update RT Increase activity 11/23/20: Maintain O2 Nebs Monitor BP 11/24/20: Venofer Labs and ABG and CT chest in am Dr Schrader consultation Maintain O2 Very fragile lungs 11/25/20: CT chest ABG Dr Schrader consultation 11/26/20: Dr Schrader appreciated Dr Marsh appreciated 11/27/20: Dr Marsh appreciated Monitor O2 11/28/20: Valdes cath in place Midline Venofer 11/29/20: Midline flushes Venofer Monitor closely Dramatic improvement 11/30/20: Dramatic improvement continues Monitor closely Increase O2 with therapy 12/01/20: Bowel incontinence could complicate DC plans Monitor urinary retention closely 12/02/20: Manage B/B incontinence Improved status Labs good 12/03/20: Improved insomnia Continue treatment B/B incontinence 12/04/20: TURP next Wed Hold OAC as of Wednesday Conferred with Dr Marsh and patient 12/05/20: Improved transfers Monitor closely O2 Incontinence management 12/06/20: Steady improvement TURP Wed Hold OAC as of Wednesday morning 12/07/20: Await second sputum Monitor closely O2 BM 12/08/20: TURP Wed Hold OAC Monitor closely Labs in am 12/09/20: TURP Wednesday Monitor closely 12/10/20: TURP tomorrow Monitor closely 2 units of blood today 12/12/20: Belladonna suppositories Monitor labs Hold OAC 12/13/20: Dr Marsh appreciated Pain control O2 Monitor closely 12/14/20: Monitor hematuria Pain control from TURP Continue therapy (1) Myopathy (2) COVID-19 (3) Hypoxia (4) Urinary retention (5) Valdes catheter in place (6) BPH (benign prostatic hyperplasia) (7) Bowel incontinence (8) Supplemental oxygen dependent (9) Advanced age (10) Frailty BARB COLLINS DO Dec 14, 2020 05:14
[2020-12-14 06:05] LABS: BASOPHILS # (AUTO) 0.1 10^3/uL (0.0-0.1); BASOPHILS % (AUTO) 1 % (0-10); EOSINOPHILS # (AUTO) 0.1 10^3/uL (0.0-0.3); EOSINOPHILS % (AUTO) 1 % (0-10); HEMATOCRIT 29 % (40-54); HEMOGLOBIN 9.1 g/dL (13.3-17.7); LYMPHOCYTES # (AUTO) 2.7 10^3/uL (1.0-4.0); LYMPHOCYTES % (AUTO) 31 % (12-44); MEAN CORPUSCULAR HEMOGLOBIN 30 pg (25-34); MEAN CORPUSCULAR HGB CONC 32 g/dL (32-36); MEAN CORPUSCULAR VOLUME 94 fL (80-99); MEAN PLATELET VOLUME 8.8 fL (9.0-12.2); MONOCYTES # (AUTO) 0.5 10^3/uL (0.0-1.0); MONOCYTES % (AUTO) 6 % (0-12); NEUTROPHILS % (AUTO) 58 % (42-75); PLATELET COUNT 219 10^3/uL (130-400); WHITE BLOOD COUNT 8.7 10^3/uL (4.3-11.0)
[2020-12-14] MEDS: predniSONE 10 MG TAB PO SCH (06:15)
[2020-12-14] MEDS: CATHETER FLUSH 10 ML SYR IV SCH ×3 (06:16→22:00)
[2020-12-14 06:22] LABS: CHLORIDE 106 MMOL/L (98-107); POTASSIUM 3.9 MMOL/L (3.6-5.0); SODIUM 139 MMOL/L (135-145)
[2020-12-14 06:23] LABS: CALCIUM 8.3 MG/DL (8.5-10.1)
[2020-12-14 06:24] LABS: GLUCOSE 93 MG/DL (70-105)
[2020-12-14 06:25] LABS: CARBON DIOXIDE 25 MMOL/L (21-32)
[2020-12-14 06:28] LABS: BUN/CREATININE RATIO 21; CREATININE SERUM 0.66 MG/DL (0.60-1.30); GFR ESTIMATED > 60
[2020-12-14 06:44] LABS: ATYPICAL LYMPHOCYTES 1 %; EOSINOPHILS % (MANUAL) 1 %; LYMPHOCYTES % (MANUAL) 27 %; MONOCYTES % (MANUAL) 7 %; NEUTROPHILS % (MANUAL) 64 %
[2020-12-14 06:45] LABS: ANISOCYTOSIS SLIGHT; MICROCYTOSIS SLIGHT; POLYCHROMASIA SLIGHT
[2020-12-14 06:56] VITALS: BP 102/58
[2020-12-14] MEDS: RT-ALBUTEROL/IPRATROPIUM 3 ML (DUONEB) VIAL IH SCH (07:22)
--- NOTE | 2020-12-14 09:24 | Progress Note - Urology ---
Progress Note-Urology Progress Notes/Assess & Plan Progress/Assessment & Plan LOOKING, FEELING AND DOING GREAT.URINE CLEAR. WE WILL LEAVE [facility] IN TILL WEDNESDAY Final Diagnosis URINE RETENTION DENTON MA MD Dec 14, 2020 09:24
[2020-12-14] MEDS: LORATADINE (CLARITIN) 10 MG TAB PO SCH (09:27)
[2020-12-14] MEDS: FOLIC ACID 1 MG TAB PO SCH (09:27)
[2020-12-14] MEDS: TAMSULOSIN 0.4 MG (FLOMAX) CAP PO SCH ×2 (09:27→23:18)
[2020-12-14] MEDS: ROFLUMILAST 500 MCG TAB (DALIRESP) PO SCH (09:27)
[2020-12-14] MEDS: SENNA W/DOCUSATE (SENOKOT S) TABLET PO SCH ×2 (09:27→23:18)
[2020-12-14] MEDS: DOCUSATE SODIUM 100 MG (COLACE) CAP PO SCH ×2 (09:28→23:18)
[2020-12-14] MEDS: FINASTERIDE (PROSCAR) 5 MG TAB PO SCH (09:28)
[2020-12-14] MEDS: LACTOBACILLUS ACIDOPHILUS (PROBIOTIC) CAPSULE PO SCH ×2 (09:28→23:18)
[2020-12-14] MEDS: CYANOCOBALAMIN 1,000 MCG (VITAMIN B-12) TABLET PO SCH (09:28)
[2020-12-14] MEDS: PANTOPRAZOLE 40 MG (PROTONIX) TAB PO SCH (09:28)
[2020-12-14] MEDS: MONTELUKAST 10 MG (SINGULAIR) TAB PO SCH (09:28)
[2020-12-14] MEDS: meTOprolol TARTRATE 25 MG (LOPRESSOR) TABLET PO SCH ×2 (09:28→23:19)
[2020-12-14] MEDS: MICONAZOLE 2% POWDER (DESENEX AF) 90 GM TOP SCH ×2 (09:51→23:20)
[2020-12-14] MEDS: polyethylene glycoL POWDER 17 GM (MIRALAX) PACK PO SCH ×2 (09:51→23:10)
[2020-12-14] MEDS: NYSTATIN CREAM (MYCOSTATIN) 30 GM TUBE TP SCH ×3 (09:51→23:20)
[2020-12-14] MEDS: LEVOFLOXACIN 500 MG TAB (LEVAQUIN) PO SCH (10:56)
--- NOTE | 2020-12-14 12:17 | Physical Therapy Daily Note ---
PT Daily Note-Current Subjective Pt in bed upon arrival; requests to use commode then transfer to recliner. Pain Numeric Pain Scale: 0-No Pain Location: No Pain Reported Mental Status Patient Orientation: Person, Place, Time, Situation Attachments: Oxygen, Mejia Catheter Transfers SCALE: Activities may be completed with or without assistive devices. 9-Zjohctowtd-xamfkld completes the activity by him/herself with no assistance from a helper. 5-Set-up or Clean-up Assistance-helper sets up or cleans up; patient completes activity. [place] assists only prior to or following the activity. 4-Supervision or Touching Assistance-helper provides verbal cues and/or touching/steadying and/or contact guard assistance as patient completes activity. Assistance may be provided throughout the activity or intermittently. 3-Partial/Moderate Assistance-helper does LESS THAN HALF the effort. [place] lifts, holds or supports trunk or limbs, but provides less than half the effort. 2-Substantial/Maximal Assistance-helper does MORE THAN HALF the effort. [place] lifts or holds trunk or limbs and provides more than half the effort. 5-Jxqmvbujo-zjoxpx does ALL the effort. Patient does none of the effort to comp lete the activity. Or, the assistance of 2 or more helpers is required for the patient to complete the activity. If activity was not attempted, code reason: 7-Patient Refused. 9-Not Applicable-not attempted and the patient did not perform the activity before the current illness, exacerbation or injury. 10-Not Attempted due to Environmental Limitations-(lack of equipment, weather restraints, etc.). 88-Not Attempted due to Medical Conditions or Safety Concerns. Lying to Sitting/Side of Bed(Q: 3 Sit to Stand (QC): 1 Toilet Transfer (QC): 1 Weight Bearing Full Weight Bearing Full Weight Bearing Treatments Pt transfers EOB<>commode w/ MaxA x2. After using the commode, COMPUTER PATTERNMAKER and DIRECT ENTRY MIDWIFE notice blood dripping from Mejia. Instead of transferring to recliner like planned, pt transferred back to bed so RN could look at pt. Pt remains in bed w/ DIRECT ENTRY MIDWIFE and RN in room, at end of tx. Assessment Current Status: Fair Progress Pt self limits when completing transfers; "I can't do it." Pt requires encouragement to complete. PT Short Term Goals Short Term Goals Time Frame: Nov 27, 2020 Roll Left & Right: 3 Sit to lyin Lying to sitting on side of be: 3 Sit to stand: 3 Chair/uqo-eo-shrbs transfer: 3 Walk 10 feet: 3 PT Ice Puller Goals Usp Goals PT Ice Puller Goals Time Frame: Dec 11, 2020 Roll Left & Right (QC): 4 Sit to Lying (QC): 4 Lying-Sitting on Side/Bed(QC): 4 Sit to Stand (QC): 4 Chair/Unh-vk-Czgli Xfer(QC): 4 Toilet Transfer (QC): 4 Car Transfer (QC): 3 Does the Patient Walk: Yes Walk 10 feet (QC): 3 Walk 50ft with 2 Turns (QC): 3 Walk 150 ft (QC): 88 Walking 10ft on Uneven Surface: 3 1 Step (curb) (QC): 3 4 Steps (QC): 88 12 Steps (QC): 88 Picking up an Object (QC): 88 Wheel 50 feet with 2 turns (QC: 6 Wheel 150 feet: 6 PT Plan Problem List Problem List: Activity Tolerance, Functional Strength, Safety, Balance, Gait, Transfer, Bed Mobility, ROM Treatment/Plan Treatment Plan: Continue Plan of Care Treatment Plan: Bed Mobility, Education, Functional Activity Leti, Functional Strength, Group Therapy, Gait, Safety, Therapeutic Exercise, Transfers Treatment Duration: Dec 11, 2020 Frequency: Modified Program (IRF) Estimated Hrs Per Day: 1 hour per day Patient and/or Family Agrees t: Yes Safety Risks/Education Patient Education: Transfer Techniques, Safety Issues Teaching Recipient: Patient Teaching Methods: Discussion Response to Teaching: Verbalize Understanding Time/GCodes Time In: 1115 Time Out: 1143 Total Billed Treatment Time: 28 Total Billed Treatment 1, FA (28m) GENNY ULRICH COMPUTER PATTERNMAKER Dec 14, 2020 12:17
[2020-12-14 17:30] VITALS: BP 106/66
[2020-12-14] MEDS: MELATONIN 10 MG TABLET PO SCH (23:19)
[2020-12-14] MEDS: BISACODYL 10 MG SUPP (DULCOLAX) PR PRN (23:19)
[2020-12-14] MEDS: MIRTAZAPINE 15 MG (REMERON) TAB PO SCH (23:19)
[2020-12-15] MEDS: ADVAIR HFA 115/21 MCG INHALER 8 GM IH SCH ×3 (00:42→18:48)
[2020-12-15] MEDS: RT-ALBUTEROL/IPRATROPIUM 3 ML (DUONEB) VIAL IH SCH ×3 (00:42→18:48)
[2020-12-15 05:43] VITALS: BP 115/77
[2020-12-15] MEDS: CATHETER FLUSH 10 ML SYR IV SCH ×3 (06:00→19:41)
--- NOTE | 2020-12-15 08:09 | PM&R Progress Note ---
Subjective HPI/CC On Admission Date Seen by Provider: Dec 15, 2020 Time Seen by Provider: 12:30 Subjective/Events-last exam 12/15/20: Doing well BM after suppository Valdes in place no hematuria Bed lamar for BM 12/14/20: No longer taking Belladonna supp Urine cleared TBI DC Improved overall Holding OAC 12/13/20: Dr Marsh assessed him to be doing well Slowing the CBI O2 2L/min wbc 11 Belladonna supp help his pain 12/12/20: s/p TURP Belladonna supp for pain Monitor labs Holding OAC Levaquin 500mg daily Appreciate Dr Marsh 12/10/20: TURP scheduled for tomorrow morning Receiving two units of blood in preparation for the surgery since there is blood loss during the surgery Remains on two liters of oxygen Overall feels like he is doing really well 12/09/20: Bowels moved after suppository yesterday Holding anticoagulation for TURP Hgb 8.7 s/p five doses of Venofer Overall feels pretty good 12/08/20: MRSA of sputum still present TURP Wed Holding OAC now for surgery Standing a bit on his own with sit to stand 12/07/20: Second sputum done and pending BM incontinent Hold Eliquis tomorrow in prep for TURP 2L/min O2 maintained Sit to stand is helpful 12/06/20/: Steady improvement Dr Pritchett Wednesday for toenail care Second sputum pending to get out of isolation BM today 12/05/20: BM today 2L/min BP low so will monitor closely Improved transfers Updated patient and his who was on the phone 12/04/20: Pt slept very well again Coughing up a little bit more sputum that does show MRSA and ESBL, will remain in isolation Valdes is back in Will have TURP on Wednesday, holding Eliquis on Wednesday Incontinence of bowels is noted Overall extremely improved 12/03/20: Discontinued catheter yesterday by Dr. 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 Up in chair today BM++ Good outlook O2 at 3L/min Increase O2 during therapies 11/29/20: No new issues Midline was placed now flushes maintained Much improved status Down to 1 L of oxygen Increased oxygen requirement with exercise Still with Valdes catheter in place Upright in wheelchair today Dramatic improvement 11/28/20: Slept a bit better Midline for Venofer will be placed Much improved status BSC today Valdes cath replaced 11/27/20: Pt remains on 1 liter per minute of oxygen Appears to be much improved today Cystoscope done today showing large prostate Proscar along with Flomax was initiated Cath was done and obtained 1000cc of urine Nystatin cream and powder will be initiated Overall much improved 11/26/20: Pt did not sleep last night due to urinary frequency Had to do straight in and out cath x4 last night Dr. Marsh will be updated Blood in the urine 1 liter of O2 now but will need a higher level when he is working out CT chest and ABG reviewed 11/25/20: ABG is pending from not being drawn yet CT of the chest will be performed, Dr. Schrader has been updated Bowels moved yesterday 11/24/20: Venofer IV started and I explained why I started that for him Will check CT scan of chest tomorrow and consult Dr Schrader Labs and ABG ordered as well Still very tachypneic with conversation and at rest Monitoring BP 2L/min 11/23/20: No orthostasis today Worked with PT OT BM++ O2 maintained 11/22/20: Hgb 8.6 today Feels better since IVF 500cc yesterday and changed cardiac meds by Dr Cisneros [place] ismael was born and he is thrilled about that Valdes cath still in place Fecal incontinence noted RT left him without O2 since he was good BRIEFLY on room air after Nebs for 1 hour and spot checked and he was at 85% and he was very short of breath just resting 11/21/20: Had episode of hypotension 76/40 with symptoms when got to edge of bed so laid back down, Cardiology notified and given 500cc of IVF Patient is on a waiver due to COVID and hypoxia for slow therapy and only 120 minutes per day Cardizem CD 120mg now after changed by Dr Cisneros ECHO done Stopped Lasix Valdes cath remains in place Review of Systems General: Fatigue, Malaise Pulmonary: Dyspnea, Cough Neurological: Weakness, Incoordination Objective Exam Vital Signs Vital Signs Date Time Temp Pulse Resp B/P (MAP) Pulse Ox O2 Delivery O2 Flow Rate FiO2 12/15/20 18:49 95 Nasal Cannula 2.00 12/15/20 17:36 36.4 81 16 91/61 (71) Capillary Refill : Less Than 3 Seconds General Appearance: No Apparent Distress, WD/WN, Chronically ill, Thin HEENT: PERRL/EOMI, Normal ENT Inspection, Pharynx Normal Neck: Full Range of Motion, Normal Inspection, Non Tender, Supple, Carotid Bruit Respiratory: Chest Non Tender, Lungs Clear, No Respiratory Distress, Accessory Muscle Use, Decreased Breath Sounds Cardiovascular: Regular Rate, Rhythm, No Edema, No Gallop, No JVD, No Murmur, Normal Peripheral Pulses Gastrointestinal: Normal Bowel Sounds, No Organomegaly, No Pulsatile Mass, Non Tender, Soft Back: Normal Inspection, No CVA Tenderness, No Vertebral Tenderness Extremity: Normal Capillary Refill, Normal Inspection, Normal Range of Motion, Non Tender, No Calf Tenderness, No Pedal Edema Neurologic/Psychiatric: Alert, Oriented x3, No Motor/Sensory Deficits, Normal Mood/Affect, Motor Weakness (generalized 2/5 lower extremities, 3/5 upper ex tremities) Skin: Normal Color, Warm/Dry Lymphatic: No Adenopathy Results/Procedures Lab Patient resulted labs reviewed. FIM Transfers Therapy Code Descriptions/Definitions Functional [place] Measure: 0=Not Assessed/NA 4=Minimal Assistance 1=Total Assistance 5=Supervision or Setup 2=Maximal Assistance 6=Modified [place] 3=Moderate Assistance 7=Complete IndependenceSCALE: Activities may be completed with or without assistive devices. 8-Shaflfuvyn-lgkyksg completes the activity by him/herself with no assistance from a helper. 5-Set-up or Clean-up Assistance-helper sets up or cleans up; patient completes activity. [place] assists only prior to or following the activity. 4-Supervision or Touching Assistance-helper provides verbal cues and/or touching/steadying and/or contact guard assistance as patient completes activity. Assistance may be provided throughout the activity or intermittently. 3-Partial/Moderate Assistance-helper does LESS THAN HALF the effort. [place] lifts, holds or supports trunk or limbs, but provides less than half the effort. 2-Substantial/Maximal Assistance-helper does MORE THAN HALF the effort. [place] lifts or holds trunk or limbs and provides more than half the effort. 6-Odvfmduqc-vagddr does ALL the effort. Patient does none of the effort to complete the activity. Or, the assistance of 2 or more helpers is required for the patient to complete the activity. If activity was not attempted, code reason: 7-Patient Refused. 9-Not Applicable-not attempted and the patient did not perform the activity before the current illness, exacerbation or injury. 10-Not Attempted due to Environmental Limitations-(lack of equipment, weather restraints, etc.). 88-Not Attempted due to Medical Conditions or Safety Concerns. Roll Left to Right (QC): 4 Sit to Lying (QC): 4 Sit to Stand (QC): 1 Chair/Gxi-rp-Lktfg Xfer(QC): 4 Car Transfer (QC): 2 Gait Training Does the Patient Walk?: No and Walking Goal IS indicated Walk 10 feet (QC): 88 Walk 50 ft with 2 Turns(QC): 88 Walk 150 ft (QC): 88 Walking 10ft/uneven surface-QC: 88 Wheelchair Training Does the Pt Use a Wheelchair?: Yes Wheel 50 ft with 2 turns (QC): 5 Wheel 150 ft (QC): 5 Type of Wheelchair: Manual Stair Training 1 Step (curb) (QC): 88 4 Steps (QC): 88 12 Steps (QC): 88 Balance Picking up an Object (QC): 88 ADL-Treatment Eating (QC): 6 Oral Hygiene (QC): 6 Bathing Location: L Arm, R Arm, L Upper Leg, R Upper Leg, L Lower Leg (including foot), R Lower Leg (including foot), Chest, Abdomen, Perineal Area Shower/Bathe Self (QC): 3 Upper Body Dressing (QC): 3 Lower Body Dressing (QC): 2 On/Off Footwear (QC): 2 Toileting Hygiene (QC): 1 Toilet Transfer (QC): 1 Assessment/Plan Assessment and Plan Assess & Plan/Chief Complaint Assessment: Myopathy COVID-19 PNA Urinary retention Valdes cath in place Bowel incontinence Hypoxia O2 dependent BPH Frail Advanced age Sputum colonized with MRSA and ESBL Plan: IRF protocol but 120 minutes per day to accommodate hypoxia at activity [place] meds Melatonin at night 11/21/20: s/o IVF Monitor hypotension and hypoxia Appreciate Dr Cisneros ECHO done Add Remeron for sleep with Melatonin 11/22/20: No possibility of weaning O2 for now with this patient so needs on 21/06 and will update RT Increase activity 11/23/20: Maintain O2 Nebs Monitor BP 11/24/20: Venofer Labs and ABG and CT chest in am Dr Schrader consultation Maintain O2 Very fragile lungs 11/25/20: CT chest ABG Dr Schrader consultation 11/26/20: Dr Schrader appreciated Dr Marsh appreciated 11/27/20: Dr Marsh appreciated Monitor O2 11/28/20: Valdes cath in place Midline Venofer 11/29/20: Midline flushes Venofer Monitor closely Dramatic improvement 11/30/20: Dramatic improvement continues Monitor closely Increase O2 with therapy 12/01/20: Bowel incontinence could complicate DC plans Monitor urinary retention closely 12/02/20: Manage B/B incontinence Improved status Labs good 12/03/20: Improved insomnia Continue treatment B/B incontinence 12/04/20: TURP next Wed Hold OAC as of Wednesday Conferred with Dr Marsh and patient 12/05/20: Improved transfers Monitor closely O2 Incontinence management 12/06/20: Steady improvement TURP Wed Hold OAC as of Wednesday morning 12/07/20: Await second sputum Monitor closely O2 BM 12/08/20: TURP Wed Hold OAC Monitor closely Labs in am 12/09/20: TURP Wednesday Monitor closely 12/10/20: TURP tomorrow Monitor closely 2 units of blood today 12/12/20: Belladonna suppositories Monitor labs Hold OAC 12/13/20: Dr Marsh appreciated Pain control O2 Monitor closely 12/14/20: Monitor hematuria Pain control from TURP Continue therapy 12/15/20: BM regimen Monitor valdes cath Hold OAC (1) Myopathy (2) COVID-19 (3) Hypoxia (4) Urinary retention (5) Valdes catheter in place (6) BPH (benign prostatic hyperplasia) (7) Bowel incontinence (8) Supplemental oxygen dependent (9) Advanced age (10) Frailty BARB COLLINS DO Dec 15, 2020 08:09
[2020-12-15] MEDS: SENNA W/DOCUSATE (SENOKOT S) TABLET PO SCH ×2 (08:21→22:39)
[2020-12-15] MEDS: MONTELUKAST 10 MG (SINGULAIR) TAB PO SCH (08:22)
[2020-12-15] MEDS: TAMSULOSIN 0.4 MG (FLOMAX) CAP PO SCH ×2 (08:22→22:39)
[2020-12-15] MEDS: BISACODYL 10 MG SUPP (DULCOLAX) PR PRN (08:22)
[2020-12-15] MEDS: CYANOCOBALAMIN 1,000 MCG (VITAMIN B-12) TABLET PO SCH (08:22)
[2020-12-15] MEDS: FOLIC ACID 1 MG TAB PO SCH (08:22)
[2020-12-15] MEDS: predniSONE 10 MG TAB PO SCH (08:23)
[2020-12-15] MEDS: ROFLUMILAST 500 MCG TAB (DALIRESP) PO SCH (08:23)
[2020-12-15] MEDS: FINASTERIDE (PROSCAR) 5 MG TAB PO SCH (08:23)
[2020-12-15] MEDS: LACTOBACILLUS ACIDOPHILUS (PROBIOTIC) CAPSULE PO SCH ×2 (08:23→22:39)
[2020-12-15] MEDS: DOCUSATE SODIUM 100 MG (COLACE) CAP PO SCH ×2 (08:24→22:38)
[2020-12-15] MEDS: PANTOPRAZOLE 40 MG (PROTONIX) TAB PO SCH (08:24)
[2020-12-15] MEDS: meTOprolol TARTRATE 25 MG (LOPRESSOR) TABLET PO SCH ×2 (08:24→22:40)
[2020-12-15] MEDS: LORATADINE (CLARITIN) 10 MG TAB PO SCH (08:24)
[2020-12-15] MEDS: polyethylene glycoL POWDER 17 GM (MIRALAX) PACK PO SCH ×2 (08:25→22:30)
[2020-12-15] MEDS: MICONAZOLE 2% POWDER (DESENEX AF) 90 GM TOP SCH ×2 (08:25→22:40)
[2020-12-15] MEDS: NYSTATIN CREAM (MYCOSTATIN) 30 GM TUBE TP SCH ×3 (08:25→22:41)
[2020-12-15] MEDS: LEVOFLOXACIN 500 MG TAB (LEVAQUIN) PO SCH (11:01)
[2020-12-15 17:36] VITALS: BP 91/61
[2020-12-15] MEDS: MELATONIN 10 MG TABLET PO SCH (22:39)
[2020-12-15] MEDS: MIRTAZAPINE 15 MG (REMERON) TAB PO SCH (22:40)
[2020-12-16] MEDS: CATHETER FLUSH 10 ML SYR IV SCH ×3 (05:26→19:53)
[2020-12-16 06:07] LABS: BASOPHILS # (AUTO) 0.1 10^3/uL (0.0-0.1); BASOPHILS % (AUTO) 1 % (0-10); EOSINOPHILS # (AUTO) 0.1 10^3/uL (0.0-0.3); EOSINOPHILS % (AUTO) 1 % (0-10); HEMATOCRIT 30 % (40-54); HEMOGLOBIN 9.4 g/dL (13.3-17.7); LYMPHOCYTES # (AUTO) 2.7 10^3/uL (1.0-4.0); LYMPHOCYTES % (AUTO) 31 % (12-44); MEAN CORPUSCULAR HEMOGLOBIN 30 pg (25-34); MEAN CORPUSCULAR HGB CONC 31 g/dL (32-36); MEAN CORPUSCULAR VOLUME 95 fL (80-99); MEAN PLATELET VOLUME 8.8 fL (9.0-12.2); MONOCYTES # (AUTO) 0.5 10^3/uL (0.0-1.0); MONOCYTES % (AUTO) 6 % (0-12); NEUTROPHILS # (AUTO) 4.7 10^3/uL (1.8-7.8); NEUTROPHILS % (AUTO) 56 % (42-75); PLATELET COUNT 262 10^3/uL (130-400); WHITE BLOOD COUNT 8.4 10^3/uL (4.3-11.0)
[2020-12-16 06:17] LABS: ALBUMIN 2.6 GM/DL (3.2-4.5); CHLORIDE 108 MMOL/L (98-107); SODIUM 140 MMOL/L (135-145)
[2020-12-16 06:18] LABS: CALCIUM 8.3 MG/DL (8.5-10.1)
[2020-12-16 06:20] LABS: GLUCOSE 91 MG/DL (70-105); TOTAL PROTEIN 4.9 GM/DL (6.4-8.2)
[2020-12-16 06:21] LABS: BILIRUBIN,TOTAL 0.3 MG/DL (0.1-1.0); CARBON DIOXIDE 27 MMOL/L (21-32)
[2020-12-16 06:23] LABS: ALKALINE PHOSPHATASE 88 U/L (40-136); CREATININE SERUM 0.69 MG/DL (0.60-1.30); GFR ESTIMATED > 60
[2020-12-16 06:24] LABS: BUN/CREATININE RATIO 17
[2020-12-16 06:26] LABS: ALANINE AMINOTRANSFERASE 12 U/L (0-55)
[2020-12-16] MEDS: predniSONE 10 MG TAB PO SCH (06:31)
[2020-12-16 06:39] VITALS: BP 100/61
[2020-12-16] MEDS: ADVAIR HFA 115/21 MCG INHALER 8 GM IH SCH ×2 (07:33→22:06)
[2020-12-16] MEDS: RT-ALBUTEROL/IPRATROPIUM 3 ML (DUONEB) VIAL IH SCH ×2 (07:33→22:06)
[2020-12-16] MEDS: polyethylene glycoL POWDER 17 GM (MIRALAX) PACK PO SCH ×2 (08:44→22:46)
[2020-12-16] MEDS: meTOprolol TARTRATE 25 MG (LOPRESSOR) TABLET PO SCH ×2 (08:44→21:40)
[2020-12-16] MEDS: ROFLUMILAST 500 MCG TAB (DALIRESP) PO SCH (08:44)
[2020-12-16] MEDS: DOCUSATE SODIUM 100 MG (COLACE) CAP PO SCH ×2 (08:44→21:40)
[2020-12-16] MEDS: SENNA W/DOCUSATE (SENOKOT S) TABLET PO SCH ×2 (08:44→22:47)
[2020-12-16] MEDS: CYANOCOBALAMIN 1,000 MCG (VITAMIN B-12) TABLET PO SCH (08:44)
[2020-12-16] MEDS: FOLIC ACID 1 MG TAB PO SCH (08:45)
[2020-12-16] MEDS: LACTOBACILLUS ACIDOPHILUS (PROBIOTIC) CAPSULE PO SCH ×2 (08:45→21:40)
[2020-12-16] MEDS: LORATADINE (CLARITIN) 10 MG TAB PO SCH (08:45)
[2020-12-16] MEDS: FINASTERIDE (PROSCAR) 5 MG TAB PO SCH (08:45)
[2020-12-16] MEDS: PANTOPRAZOLE 40 MG (PROTONIX) TAB PO SCH (08:45)
--- NOTE | 2020-12-16 08:45 | PM&R Progress Note ---
Subjective HPI/CC On Admission Date Seen by Provider: Dec 16, 2020 Time Seen by Provider: 08:30 Subjective/Events-last exam 12/16/20: Hgb 9.4 Getting ready to stand with walker and help Valdes Catheter still in place, will remove on Wednesday per urology Checked meds and labs 12/15/20: Doing well BM after suppository Valdes in place no hematuria Bed lamar for BM 12/14/20: No longer taking Belladonna supp Urine cleared TBI DC Improved overall Holding OAC 12/13/20: Dr Marsh assessed him to be doing well Slowing the CBI O2 2L/min wbc 11 Belladonna supp help his pain 12/12/20: s/p TURP Belladonna supp for pain Monitor labs Holding OAC Levaquin 500mg daily Appreciate Dr Marsh 12/10/20: TURP scheduled for tomorrow morning Receiving two units of blood in preparation for the surgery since there is blood loss during the surgery Remains on two liters of oxygen Overall feels like he is doing really well 12/09/20: Bowels moved after suppository yesterday Holding anticoagulation for TURP Hgb 8.7 s/p five doses of Venofer Overall feels pretty good 12/08/20: MRSA of sputum still present TURP Wed Holding OAC now for surgery Standing a bit on his own with sit to stand 12/07/20: Second sputum done and pending BM incontinent Hold Eliquis tomorrow in prep for TURP 2L/min O2 maintained Sit to stand is helpful 12/06/20/: Steady improvement Dr Pritchett Wednesday for toenail care Second sputum pending to get out of isolation BM today 12/05/20: BM today 2L/min BP low so will monitor closely Improved transfers Updated patient and his who was on the phone 12/04/20: Pt slept very well again Coughing up a little bit more sputum that does show MRSA and ESBL, will remain in isolation Valdes is back in Will have TURP on Wednesday, holding Eliquis on Wednesday Incontinence of bowels is noted Overall extremely improved 12/03/20: Discontinued catheter yesterday by Dr. 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 Up in chair today BM++ Good outlook O2 at 3L/min Increase O2 during therapies 11/29/20: No new issues Midline was placed now flushes maintained Much improved status Down to 1 L of oxygen Increased oxygen requirement with exercise Still with Valdes catheter in place Upright in wheelchair today Dramatic improvement 11/28/20: Slept a bit better Midline for Venofer will be placed Much improved status BSC today Valdes cath replaced 11/27/20: Pt remains on 1 liter per minute of oxygen Appears to be much improved today Cystoscope done today showing large prostate Proscar along with Flomax was initiated Cath was done and obtained 1000cc of urine Nystatin cream and powder will be initiated Overall much improved 11/26/20: Pt did not sleep last night due to urinary frequency Had to do straight in and out cath x4 last night Dr. Marsh will be updated Blood in the urine 1 liter of O2 now but will need a higher level when he is working out CT chest and ABG reviewed 11/25/20: ABG is pending from not being drawn yet CT of the chest will be performed, Dr. Schrader has been updated Bowels moved yesterday 11/24/20: Venofer IV started and I explained why I started that for him Will check CT scan of chest tomorrow and consult Dr Schrader Labs and ABG ordered as well Still very tachypneic with conversation and at rest Monitoring BP 2L/min 11/23/20: No orthostasis today Worked with PT OT BM++ O2 maintained 11/22/20: Hgb 8.6 today Feels better since IVF 500cc yesterday and changed cardiac meds by Dr Blayne Rendon ismael was born and he is thrilled about that Valdes cath still in place Fecal incontinence noted RT left him without O2 since he was good BRIEFLY on room air after Nebs for 1 hour and spot checked and he was at 85% and he was very short of breath just resting 11/21/20: Had episode of hypotension 76/40 with symptoms when got to edge of bed so laid back down, Cardiology notified and given 500cc of IVF Patient is on a waiver due to COVID and hypoxia for slow therapy and only 120 minutes per day Cardizem CD 120mg now after changed by Dr Cisneros ECHO done Stopped Lasix Valdes cath remains in place Review of Systems General: Fatigue, Malaise Neurological: Weakness Objective Exam Vital Signs Vital Signs Date Time Temp Pulse Resp B/P (MAP) Pulse Ox O2 Delivery O2 Flow Rate FiO2 12/16/20 22:06 99 Nasal Cannula 2.00 12/16/20 18:45 36.6 78 16 136/79 (98) Capillary Refill : Less Than 3 Seconds General Appearance: No Apparent Distress, WD/WN, Chronically ill, Thin HEENT: PERRL/EOMI, Normal ENT Inspection, Pharynx Normal Neck: Full Range of Motion, Normal Inspection, Non Tender, Supple, Carotid Bruit Respiratory: Chest Non Tender, Lungs Clear, No Respiratory Distress, Accessory Muscle Use, Decreased Breath Sounds Cardiovascular: Regular Rate, Rhythm, No Edema, No Gallop, No JVD, No Murmur, Normal Peripheral Pulses Gastrointestinal: Normal Bowel Sounds, No Organomegaly, No Pulsatile Mass, Non Tender, Soft Back: Normal Inspection, No CVA Tenderness, No Vertebral Tenderness Extremity: Normal Capillary Refill, Normal Inspection, Normal Range of Motion, Non Tender, No Calf Tenderness, No Pedal Edema Neurologic/Psychiatric: Alert, Oriented x3, No Motor/Sensory Deficits, Normal Mood/Affect, Motor Weakness (generalized 2/5 lower extremities, 3/5 upper extremities) Skin: Normal Color, Warm/Dry Lymphatic: No Adenopathy Results/Procedures Lab Laboratory Tests 12/16/20 05:40 Patient resulted labs reviewed. FIM Transfers Therapy Code Descriptions/Definitions Functional [place] Measure: 0=Not Assessed/NA 4=Minimal Assistance 1=Total Assistance 5=Supervision or Setup 2=Maximal Assistance 6=Modified [place] 3=Moderate Assistance 7=Complete IndependenceSCALE: Activities may be completed with or without assistive devices. 9-Vmaenhfctk-fqtlsyu completes the activity by him/herself with no assistance from a helper. 5-Set-up or Clean-up Assistance-helper sets up or cleans up; patient completes activity. [place] assists only prior to or following the activity. 4-Supervision or Touching Assistance-helper provides verbal cues and/or touching/steadying and/or contact guard assistance as patient completes activity. Assistance may be provided throughout the activity or intermittently. 3-Partial/Moderate Assistance-helper does LESS THAN HALF the effort. [place] lifts, holds or supports trunk or limbs, but provides less than half the effort. 2-Substantial/Maximal Assistance-helper does MORE THAN HALF the effort. [place] lifts or holds trunk or limbs and provides more than half the effort. 3-Ejrxgeslw-cyfvyt does ALL the effort. Patient does none of the effort to complete the activity. Or, the assistance of 2 or more helpers is required for the patient to complete the activity. If activity was not attempted, code reason: 7-Patient Refused. 9-Not Applicable-not attempted and the patient did not perform the activity before the current illness, exacerbation or injury. 10-Not Attempted due to Environmental Limitations-(lack of equipment, weather restraints, etc.). 88-Not Attempted due to Medical Conditions or Safety Concerns. Roll Left to Right (QC): 4 Sit to Lying (QC): 4 Sit to Stand (QC): 1 Chair/Xxt-jt-Sxysd Xfer(QC): 4 Car Transfer (QC): 2 Gait Training Does the Patient Walk?: No and Walking Goal IS indicated Walk 10 feet (QC): 88 Walk 50 ft with 2 Turns(QC): 88 Walk 150 ft (QC): 88 Walking 10ft/uneven surface-QC: 88 Wheelchair Training Does the Pt Use a Wheelchair?: Yes Wheel 50 ft with 2 turns (QC): 5 Wheel 150 ft (QC): 5 Type of Wheelchair: Manual Stair Training 1 Step (curb) (QC): 88 4 Steps (QC): 88 12 Steps (QC): 88 Balance Picking up an Object (QC): 88 ADL-Treatment Eating (QC): 6 Oral Hygiene (QC): 6 Bathing Location: L Arm, R Arm, L Upper Leg, R Upper Leg, L Lower Leg (including foot), R Lower Leg (including foot), Chest, Abdomen, Perineal Area Shower/Bathe Self (QC): 3 Upper Body Dressing (QC): 3 Lower Body Dressing (QC): 2 On/Off Footwear (QC): 2 Toileting Hygiene (QC): 1 Toilet Transfer (QC): 1 Assessment/Plan Assessment and Plan Assess & Plan/Chief Complaint Assessment: Myopathy COVID-19 PNA Urinary retention Valdes cath in place Bowel incontinence Hypoxia O2 dependent BPH Frail Advanced age Sputum colonized with MRSA and ESBL Plan: IRF protocol but 120 minutes per day to accommodate hypoxia at activity [place] meds Melatonin at night 11/21/20: s/o IVF Monitor hypotension and hypoxia Appreciate Dr Cisneros ECHO done Add Remeron for sleep with Melatonin 11/22/20: No possibility of weaning O2 for now with this patient so needs on 21/06 and will update RT Increase activity 11/23/20: Maintain O2 Nebs Monitor BP 11/24/20: Venofer Labs and ABG and CT chest in am Dr Schrader consultation Maintain O2 Very fragile lungs 11/25/20: CT chest ABG Dr Schrader consultation 11/26/20: Dr Schrader appreciated Dr Marsh appreciated 11/27/20: Dr Marsh appreciated Monitor O2 11/28/20: Valdes cath in place Midline Venofer 11/29/20: Midline flushes Venofer Monitor closely Dramatic improvement 11/30/20: Dramatic improvement continues Monitor closely Increase O2 with therapy 12/01/20: Bowel incontinence could complicate DC plans Monitor urinary retention closely 12/02/20: Manage B/B incontinence Improved status Labs good 12/03/20: Improved insomnia Continue treatment B/B incontinence 12/04/20: TURP next Wed Hold OAC as of Wednesday Conferred with Dr Marsh and patient 12/05/20: Improved transfers Monitor closely O2 Incontinence management 12/06/20: Steady improvement TURP Wed Hold OAC as of Wednesday morning 12/07/20: Await second sputum Monitor closely O2 BM 12/08/20: TURP Wed Hold OAC Monitor closely Labs in am 12/09/20: TURP Wednesday Monitor closely 12/10/20: TURP tomorrow Monitor closely 2 units of blood today 12/12/20: Belladonna suppositories Monitor labs Hold OAC 12/13/20: Dr Marsh appreciated Pain control O2 Monitor closely 12/14/20: Monitor hematuria Pain control from TURP Continue therapy 12/15/20: BM regimen Monitor valdes cath Hold OAC 12/16/20: Ambulating Participating with therapy Valdes out tomorrow? (1) Myopathy (2) COVID-19 (3) Hypoxia (4) Urinary retention (5) Valdes catheter in place (6) BPH (benign prostatic hyperplasia) (7) Bowel incontinence (8) Supplemental oxygen dependent (9) Advanced age (10) Frailty BARB COLLINS DO Dec 16, 2020 08:45
[2020-12-16] MEDS: NYSTATIN CREAM (MYCOSTATIN) 30 GM TUBE TP SCH ×3 (08:46→21:44)
[2020-12-16] MEDS: MONTELUKAST 10 MG (SINGULAIR) TAB PO SCH (08:46)
[2020-12-16] MEDS: MICONAZOLE 2% POWDER (DESENEX AF) 90 GM TOP SCH ×2 (08:46→21:44)
--- NOTE | 2020-12-16 09:34 | Physical Therapy Daily Note ---
PT Daily Note-Current Subjective Pt. in bed, agrees to Rx, feels he is making gains Pain Location: No Pain Reported Mental Status Patient Orientation: Normal For Age Attachments: Oxygen (2L), Mejia Catheter Transfers SCALE: Activities may be completed with or without assistive devices. 8-Kainprxsqq-sikseew completes the activity by him/herself with no assistance from a helper. 5-Set-up or Clean-up Assistance-helper sets up or cleans up; patient completes activity. [place] assists only prior to or following the activity. 4-Supervision or Touching Assistance-helper provides verbal cues and/or touching/steadying and/or contact guard assistance as patient completes activity. Assistance may be provided throughout the activity or intermittently. 3-Partial/Moderate Assistance-helper does LESS THAN HALF the effort. [place] lifts, holds or supports trunk or limbs, but provides less than half the effort. 2-Substantial/Maximal Assistance-helper does MORE THAN HALF the effort. [place] lifts or holds trunk or limbs and provides more than half the effort. 7-Dkavirybi-seogus does ALL the effort. Patient does none of the effort to complete the activity. Or, the assistance of 2 or more helpers is required for the patient to complete the activity. If activity was not attempted, code reason: 7-Patient Refused. 9-Not Applicable-not attempted and the patient did not perform the activity before the current illness, exacerbation or injury. 10-Not Attempted due to Environmental Limitations-(lack of equipment, weather restraints, etc.). 88-Not Attempted due to Medical Conditions or Safety Concerns. Roll Left & Right (QC): 6 Sit to Lying (QC): 6 Lying to Sitting/Side of Bed(Q: 5 Sit to Stand (QC): 3 Chair/Eps-ej-Ykfpl Xfer(QC): 3 Toilet Transfer (QC): 3 much education and review given to sit to stand wt shift and technique, pt. progressing well and progressing to min assist sit to stand Weight Bearing Full Weight Bearing Full Weight Bearing Gait Training Does the Patient Walk?: Yes Walk 10 feet (QC): 3 Gait Persons Needed: 1 Gait Assistive Device: FWW Pt. ambulated 10ft, 6ft with w/c close behind and O2 insitu, small steps and instruction for [place] and step length, Pt. with dyspnea and needed to rest but made good progress Wheelchair Training Does the Pt Use a Wheelchair?: Yes Type of Wheelchair: Manual 25 30 ft SBA Exercises Supine Ex: Bridging, Rolling, Heel Slides, Straight leg raise, Hip abd/add Supine Reps: 12 Seated Therapy Exercises: Sit to stand Seated Reps: 8 Treatments PT OT co Rx for coordination of ADLs for toileting , w/c and gait with O2 and w/c. OT focused on UE and sequence while PT on TRF and gait with FWW . 2 skilled clinicians required secondary to pts status and degree of complexity Assessment Current Status: Good Progress gives full effort, making progress PT Short Term Goals Short Term Goals Time Frame: Nov 27, 2020 Roll Left & Right: 3 Sit to lyin Lying to sitting on side of be: 3 Sit to stand: 3 Chair/mfk-zz-huckm transfer: 3 Walk 10 feet: 3 PT Custodial Goals Custodial Goals PT [employer] Treatment [employer] Engineer Goals Time Frame: Dec 11, 2020 Roll Left & Right (QC): 4 Sit to Lying (QC): 4 Lying-Sitting on Side/Bed(QC): 4 Sit to Stand (QC): 4 Chair/Zle-wr-Sbcvz Xfer(QC): 4 Toilet Transfer (QC): 4 Car Transfer (QC): 3 Does the Patient Walk: Yes Walk 10 feet (QC): 3 Walk 50ft with 2 Turns (QC): 3 Walk 150 ft (QC): 88 Walking 10ft on Uneven Surface: 3 1 Step (curb) (QC): 3 4 Steps (QC): 88 12 Steps (QC): 88 Picking up an Object (QC): 88 Wheel 50 feet with 2 turns (QC: 6 Wheel 150 feet: 6 PT Plan Treatment/Plan Treatment Plan: Continue Plan of Care Treatment Plan: Bed Mobility, Education, Functional Activity Leti, Functional Strength, Group Therapy, Gait, Safety, Therapeutic Exercise, Transfers Treatment Duration: Dec 11, 2020 Frequency: Modified Program (IRF) Estimated Hrs Per Day: 1 hour per day Patient and/or Family Agrees t: Yes Safety Risks/Education Patient Education: Gait Training, Transfer Techniques, Correct Positioning, Disease Process, Safety Issues Teaching Recipient: Patient Teaching Methods: Demonstration, Discussion Response to Teaching: Verbalize Understanding, Return Demonstration, Reinforcement Needed Time/GCodes Time In: 845 Time Out: 930 Total Billed Treatment Time: 45 Total Billed Treatment 1,GT15,EX10,FA20 ESSENCE ARRIAZA TARIFF COMPILER Dec 16, 2020 09:34
--- NOTE | 2020-12-16 09:57 | Occupational Ther Daily Note ---
OT Current Status-Daily Note Subjective Pt alert, lying in bed. Pt agrees to therapy. No c/o pain at this time. Mental Status/Objective Patient Orientation: Person, Place, Time, Situation Attachments: Mejia Catheter, Oxygen (2L) ADL-Treatment 1st ioelemx-Wv-vywol with PT ([id number]), skills of 2 clinicians required for skilled instruction and mobility. PT focusing on transfers and ambulation while OT focusing on ADL and B UE placement during mobility. Pt completed oral care and grooming sitting at sink in w/c. Pt able to complete donning/doffing socks sitting in recliner using figure 4 tech. Supine to EOB with HOB elevated, CGA Pt requires assistance with threading briefs over feet then assist x1 to stand while 2nd assist to hike pants over hips. Pt requires assist to cleanse buttocks while assist to stand. Therapy Code Descriptions/Definitions Functional [place] Measure: 0=Not Assessed/NA 4=Minimal Assistance 1=Total Assistance 5=Supervision or Setup 2=Maximal Assistance 6=Modified [place] 3=Moderate Assistance 7=Complete IndependenceSCALE: Activities may be completed with or without assistive devices. 7-Wykpytufwb-rdyxgqr completes the activity by him/herself with no assistance from a helper. 5-Set-up or Clean-up Assistance-helper sets up or cleans up; patient completes activity. [place] assists only prior to or following the activity. 4-Supervision or Touching Assistance-helper provides verbal cues and/or touching/steadying and/or contact guard assistance as patient completes activity. Assistance may be provided throughout the activity or intermittently. 3-Partial/Moderate Assistance-helper does LESS THAN HALF the effort. [place] lifts, holds or supports trunk or limbs, but provides less than half the effort. 2-Substantial/Maximal Assistance-helper does MORE THAN HALF the effort. [place] lifts or holds trunk or limbs and provides more than half the effort. 5-Klkylarkf-zczgrz does ALL the effort. Patient does none of the effort to complete the activity. Or, the assistance of 2 or more helpers is required for the patient to complete the activity. If activity was not attempted, code reason: 7-Patient Refused. 9-Not Applicable-not attempted and the patient did not perform the activity before the current illness, exacerbation or injury. 10-Not Attempted due to Environmental Limitations-(lack of equipment, weather restraints, etc.). 88-Not Attempted due to Medical Conditions or Safety Concerns. Oral Hygiene (QC): 6 On/Off Footwear: 5 Toileting Hygiene (QC): 1 Toilet Transfer (QC): 2 Other Treatment 1st session([id number])-Pt is demonstrating progress with sit to stand, CGA to min A using FWW. Pt then able to take 6 steps to complete transfer from surface to surface with CGA to min A using FWW. See PT notes for progress on ambulation. After session, pt sitting in recliner with call light/phone in reach. All needs met in room. 2nd session([id number])-Pt donned socks with figure 4 technique, independently. Sit to stand with CGA and was able to stand 1 min with first attempt. CGA in standing for 2 min on second attempt. Pt then demonstrated understanding of Light resistance theraband B UE exercises, remembered 5/6 exercises. Pt required 2 recovery breaks when completing all exercises. After session, pt sitting in recliner with call light/phone in reach. All needs met in room. OT Short Term Goals Short Term Goals Time Frame: Dec 11, 2020 Shower/bathe self: 4 Upper body dressin Lower body dressin OT Detention Goals Food And Beverage Intern Goals Time Frame: Dec 20, 2020 Eating (QC): 6 Oral Hygiene (QC): 6 Toileting Hygiene (QC): 6 Shower/Bathe Self (QC): 6 Upper Body Dressing (QC): 6 Lower Body Dressing (QC): 6 On/Off Footwear (QC): 6 Additional Goals: 1-Demonstrate ADL Tasks, 2-Verbalize Understanding, 3- ImproveStrength/Leti 1=Demonstrate adherence to instructed precautions during ADL tasks. 2=Patient will verbalize/demonstrate understanding of assistive devices/modifications for ADL. 3=Patient will improve strength/tolerance for activity to enable patient to perform ADL's. OT Education/Plan Problem List/Assessment Assessment: Decreased Activ Tolerance, Decreased UE Strength, Impaired Coordination, Impaired Funct Balance, Impaired Self-Care Skills Discharge Recommendations Plan/Recommendations: Continue POC Treatment Plan/Plan of Care Patient would benefit from OT for education, treatment and training to promote independence in ADL's, mobility, safety and/or upper extremity function for ADL's. Plan of Care: ADL Retraining, Functional Mobility, Group Exercise/Act as Ind, UE Funct Exercise/Act Treatment Duration: Dec 20, 2020 Frequency: Modified Program (IRF) Estimated Hrs Per Day: 1 hour per day Rehab Potential: Fair Time/GCodes Start Time: 09:00 (1130) Stop Time: 10:00 (1200) Total Time Billed (hr/min): 90 Billed Treatment Time 2visits-ADL 2 (30 min) FA 3 (45 min) EX 1 (15 min) co-treat with PT [id number], individual [id number] VIOLET BACA Dec 16, 2020 09:57
[2020-12-16] MEDS: LEVOFLOXACIN 500 MG TAB (LEVAQUIN) PO SCH (11:14)
[2020-12-16] MEDS: TAMSULOSIN 0.4 MG (FLOMAX) CAP PO SCH ×2 (11:14→21:40)
--- NOTE | 2020-12-16 13:30 | Physical Therapy Daily Note ---
PT Daily Note-Current Subjective Pt. just finished with lunch and wants to use BSC and then go to bed. Pain Location: No Pain Reported Mental Status Patient Orientation: Normal For Age Attachments: Oxygen, Mejia Catheter Transfers SCALE: Activities may be completed with or without assistive devices. 2-Xlqfevdhbz-hauhaqu completes the activity by him/herself with no assistance from a helper. 5-Set-up or Clean-up Assistance-helper sets up or cleans up; patient completes activity. [place] assists only prior to or following the activity. 4-Supervision or Touching Assistance-helper provides verbal cues and/or touching/steadying and/or contact guard assistance as patient completes activity. Assistance may be provided throughout the activity or intermittently. 3-Partial/Moderate Assistance-helper does LESS THAN HALF the effort. [place] l ifts, holds or supports trunk or limbs, but provides less than half the effort. 2-Substantial/Maximal Assistance-helper does MORE THAN HALF the effort. [place] lifts or holds trunk or limbs and provides more than half the effort. 2-Ykuyzhnhy-htxhkc does ALL the effort. Patient does none of the effort to complete the activity. Or, the assistance of 2 or more helpers is required for t he patient to complete the activity. If activity was not attempted, code reason: 7-Patient Refused. 9-Not Applicable-not attempted and the patient did not perform the activity before the current illness, exacerbation or injury. 10-Not Attempted due to Environmental Limitations-(lack of equipment, weather restraints, etc.). 88-Not Attempted due to Medical Conditions or Safety Concerns. sit to stand x 5 trials for TRF to BSC, clean up and TRF to bed all with min assist , max assist for clothing and clean up Weight Bearing Full Weight Bearing Full Weight Bearing Gait Training Gait Assistive Device: FWW 3-4 small steps from surface to surface with min assist to move and manage FWW Exercises Supine Ex: Ankle pumps, Quad Set, Glut sets Supine Reps: 20 Assessment Current Status: Good Progress fatigued with TRFs and needed time and second assist for pants up and TRF PT Short Term Goals Short Term Goals Time Frame: Nov 27, 2020 Roll Left & Right: 3 Sit to lyin Lying to sitting on side of be: 3 Sit to stand: 3 Chair/hpg-ak-abmng transfer: 3 Walk 10 feet: 3 PT Gas Station Supervisor Goals Halfway Goals PT Halfway Goals Time Frame: Dec 11, 2020 Roll Left & Right (QC): 4 Sit to Lying (QC): 4 Lying-Sitting on Side/Bed(QC): 4 Sit to Stand (QC): 4 Chair/Few-ip-Umvig Xfer(QC): 4 Toilet Transfer (QC): 4 Car Transfer (QC): 3 Does the Patient Walk: Yes Walk 10 feet (QC): 3 Walk 50ft with 2 Turns (QC): 3 Walk 150 ft (QC): 88 Walking 10ft on Uneven Surface: 3 1 Step (curb) (QC): 3 4 Steps (QC): 88 12 Steps (QC): 88 Picking up an Object (QC): 88 Wheel 50 feet with 2 turns (QC: 6 Wheel 150 feet: 6 PT Plan Treatment/Plan Treatment Plan: Continue Plan of Care Treatment Plan: Bed Mobility, Education, Functional Activity Leti, Functional Strength, Group Therapy, Gait, Safety, Therapeutic Exercise, Transfers Treatment Duration: Dec 11, 2020 Frequency: Modified Program (IRF) Estimated Hrs Per Day: 1 hour per day Patient and/or Family Agrees t: Yes Safety Risks/Education Patient Education: Transfer Techniques Time/GCodes Time In: 1300 Time Out: 1325 Total Billed Treatment Time: 25 Total Billed Treatment 1,FA25m ESSENCE ARRIAZA EXPERIENCE DESIGNER Dec 16, 2020 13:30
--- NOTE | 2020-12-16 18:42 | NUR ---
"RD ASSESSMENT PMHx: afib; BPH; HTN; hypercholesterolemia; PT INTERACTION: Pt was awake and pleasant during nutrition follow-up. Pt states he has been eating well since last assessment. Note avg PO intake 89% x4d, per chart review. Pt states some issues with constipation since last assessment. Note last BM was 12/15, and pt currently on bowel regimen of colace BID, senna BID, and miralax BID, per chart review. Est. kcal needs: 9108-2221 kcal | 25-30 kcal/kg Est. Pro needs: 64-80 g Pro | 0.8-1.0 g Pro/kg PES STATEMENT: Given current appetite and PO intake, no nutrition diagnosis at this time (NO-1.1). INTERVENTION: Continue with current diet order of Regular diet. Continue with current supplement order of Ensure Enlive (vary) to meals TID, for increased kcal and protein intake. Provides 350 kcal and 20 g Pro per serving. Will continue to follow and reassess as pt needs, intake, and status change. Carlos SIMMONS MS RD LD [phone] cell"
[2020-12-16 18:45] VITALS: BP 136/79
[2020-12-16] MEDS: MIRTAZAPINE 15 MG (REMERON) TAB PO SCH (21:40)
[2020-12-16] MEDS: MELATONIN 10 MG TABLET PO SCH (21:40)
[2020-12-17] MEDS: CATHETER FLUSH 10 ML SYR IV SCH (00:32)
[2020-12-17 06:14] VITALS: BP 114/72
[2020-12-17] MEDS: predniSONE 10 MG TAB PO SCH (06:38)
--- NOTE | 2020-12-17 06:45 | Pulmonary Progress Note ---
Subjective Time Seen by a Provider: 06:40 Subjective/Events-last exam No respiratory complications noted. Sepsis Event Evaluation Height, Weight, BMI Height: '" Weight: lbs. oz. kg; 23.39 BMI Method: Exam Exam Vital Signs Date Time Temp Pulse Resp B/P (MAP) Pulse Ox O2 Delivery O2 Flow Rate FiO2 12/17/20 06:14 36.8 72 16 114/72 (86) 97 Nasal Cannula 2.00 12/16/20 22:06 99 Nasal Cannula 2.00 12/16/20 20:10 Nasal Cannula 2.00 12/16/20 18:45 36.6 78 16 136/79 (98) 99 Room Air 12/16/20 09:02 94 Nasal Cannula 2.00 12/16/20 07:34 99 Nasal Cannula 2.00 I & O 12/17/20 07:00 Intake Total 1510 ml Output Total 2475 ml Balance -965 ml Height & Weight Height: '" Weight: lbs. oz. kg; 23.39 BMI Method: General Appearance: No Apparent Distress, WD/WN, Chronically ill, Thin HEENT: PERRL/EOMI, Normal ENT Inspection, Pharynx Normal Neck: Full Range of Motion, Normal Inspection, Non Tender, Supple, Carotid Bruit Respiratory: Chest Non Tender, Lungs Clear, No Respiratory Distress, Accessory Muscle Use, Decreased Breath Sounds Cardiovascular: Regular Rate, Rhythm, No Edema, No Gallop, No JVD, No Murmur, Normal Peripheral Pulses Capillary Refill: Less Than 3 Seconds Extremity: Normal Capillary Refill, Normal Inspection, Normal Range of Motion, Non Tender, No Calf Tenderness, No Pedal Edema Neurologic/Psychiatric: Alert, Oriented x3, No Motor/Sensory Deficits, Normal Mood/Affect, Motor Weakness (generalized 2/5 lower extremities, 3/5 upper extremities) Skin: Normal Color, Warm/Dry Lymphatic: No Adenopathy Results Lab Laboratory Tests 12/16/20 05:40 Assessment/Plan Assessment/Plan s/p COVID 19 PNA with hypoxia -oxygen -CXR and labs reviewed -Albuterol and advair -Repeat CXR Mass like infiltrate per CT of chest -Repeat CT in 3 mo COPD -Albuterol and advair YARELI BONNER DO Dec 17, 2020 06:45
[2020-12-17] MEDS: RT-ALBUTEROL/IPRATROPIUM 3 ML (DUONEB) VIAL IH SCH ×2 (07:26→19:04)
[2020-12-17] MEDS: ADVAIR HFA 115/21 MCG INHALER 8 GM IH SCH ×2 (07:27→19:04)
--- NOTE | 2020-12-17 08:42 | PM&R Progress Note ---
Subjective HPI/CC On Admission Date Seen by Provider: Dec 17, 2020 Time Seen by Provider: 08:30 Subjective/Events-last exam 12/17/20: Catheter will be taken out tomorrow Has not required continuous bladder irrigation Bowels are moving pretty well Overall participating in therapy and getting stronger 12/16/20: Hgb 9.4 Getting ready to stand with walker and help Valdes Catheter still in place, will remove on Wednesday per urology Checked meds and labs 12/15/20: Doing well BM after suppository Valdes in place no hematuria Bed lamar for BM 12/14/20: No longer taking Belladonna supp Urine cleared TBI DC Improved overall Holding OAC 12/13/20: Dr Marsh assessed him to be doing well Slowing the CBI O2 2L/min wbc 11 Belladonna supp help his pain 12/12/20: s/p TURP Belladonna supp for pain Monitor labs Holding OAC Levaquin 500mg daily Appreciate Dr Marsh 12/10/20: TURP scheduled for tomorrow morning Receiving two units of blood in preparation for the surgery since there is blood loss during the surgery Remains on two liters of oxygen Overall feels like he is doing really well 12/09/20: Bowels moved after suppository yesterday Holding anticoagulation for TURP Hgb 8.7 s/p five doses of Venofer Overall feels pretty good 12/08/20: MRSA of sputum still present TURP Wed Holding OAC now for surgery Standing a bit on his own with sit to stand 12/07/20: Second sputum done and pending BM incontinent Hold Eliquis tomorrow in prep for TURP 2L/min O2 maintained Sit to stand is helpful 12/06/20/: Steady improvement Dr Pritchett Wednesday for toenail care Second sputum pending to get out of isolation BM today 12/05/20: BM today 2L/min BP low so will monitor closely Improved transfers Updated patient and his who was on the phone 12/04/20: Pt slept very well again Coughing up a little bit more sputum that does show MRSA and ESBL, will remain in isolation Valdes is back in Will have TURP on Wednesday, holding Eliquis on Wednesday Incontinence of bowels is noted Overall extremely improved 12/03/20: Discontinued catheter yesterday by Dr. 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 Up in chair today BM++ Good outlook O2 at 3L/min Increase O2 during therapies 11/29/20: No new issues Midline was placed now flushes maintained Much improved status Down to 1 L of oxygen Increased oxygen requirement with exercise Still with Valdes catheter in place Upright in wheelchair today Dramatic improvement 11/28/20: Slept a bit better Midline for Venofer will be placed Much improved status BSC today Valdes cath replaced 11/27/20: Pt remains on 1 liter per minute of oxygen Appears to be much improved today Cystoscope done today showing large prostate Proscar along with Flomax was initiated Cath was done and obtained 1000cc of urine Nystatin cream and powder will be initiated Overall much improved 11/26/20: Pt did not sleep last night due to urinary frequency Had to do straight in and out cath x4 last night Dr. Marsh will be updated Blood in the urine 1 liter of O2 now but will need a higher level when he is working out CT chest and ABG reviewed 11/25/20: ABG is pending from not being drawn yet CT of the chest will be performed, Dr. Schrader has been updated Bowels moved yesterday 11/24/20: Venofer IV started and I explained why I started that for him Will check CT scan of chest tomorrow and consult Dr Schrader Labs and ABG ordered as well Still very tachypneic with conversation and at rest Monitoring BP 2L/min 11/23/20: No orthostasis today Worked with PT OT BM++ O2 maintained 11/22/20: Hgb 8.6 today Feels better since IVF 500cc yesterday and changed cardiac meds by Dr Cisneros Justice guevara was born and he is thrilled about that Valdes cath still in place Fecal incontinence noted RT left him without O2 since he was good BRIEFLY on room air after Nebs for 1 hour and spot checked and he was at 85% and he was very short of breath just resting 11/21/20: Had episode of hypotension 76/40 with symptoms when got to edge of bed so laid back down, Cardiology notified and given 500cc of IVF Patient is on a waiver due to COVID and hypoxia for slow therapy and only 120 minutes per day Cardizem CD 120mg now after changed by Dr Cisneros ECHO done Stopped Lasix Valdes cath remains in place Review of Systems Pulmonary: Dyspnea Genitourinary: Retention Neurological: Weakness Objective Exam Vital Signs Vital Signs Date Time Temp Pulse Resp B/P (MAP) Pulse Ox O2 Delivery O2 Flow Rate FiO2 12/17/20 20:40 Nasal Cannula 2.00 12/17/20 19:04 94 12/17/20 18:00 36.6 100 18 100/65 (77) Capillary Refill : Less Than 3 Seconds General Appearance: No Apparent Distress, WD/WN, Chronically ill, Thin HEENT: PERRL/EOMI, Normal ENT Inspection, Pharynx Normal Neck: Full Range of Motion, Normal Inspection, Non Tender, Supple, Carotid Bruit Respiratory: Chest Non Tender, Lungs Clear, No Respiratory Distress, Accessory Muscle Use, Decreased Breath Sounds Cardiovascular: Regular Rate, Rhythm, No Edema, No Gallop, No JVD, No Murmur, Normal Peripheral Pulses Gastrointestinal: Normal Bowel Sounds, No Organomegaly, No Pulsatile Mass, Non Tender, Soft Back: Normal Inspection, No CVA Tenderness, No Vertebral Tenderness Extremity: Normal Capillary Refill, Normal Inspection, Normal Range of Motion, Non Tender, No Calf Tenderness, No Pedal Edema Neurologic/Psychiatric: Alert, Oriented x3, No Motor/Sensory Deficits, Normal Mood/Affect, Motor Weakness (generalized 2/5 lower extremities, 3/5 upper extremities) Skin: Normal Color, Warm/Dry Lymphatic: No Adenopathy Results/Procedures Lab Patient resulted labs reviewed. FIM Transfers Therapy Code Descriptions/Definitions Functional [place] Measure: 0=Not Assessed/NA 4=Minimal Assistance 1=Total Assistance 5=Supervision or Setup 2=Maximal Assistance 6=Modified [place] 3=Moderate Assistance 7=Complete IndependenceSCALE: Activities may be completed with or without assistive devices. 0-Gtrucwasth-vthbepe completes the activity by him/herself with no assistance from a helper. 5-Set-up or Clean-up Assistance-helper sets up or cleans up; patient completes activity. [place] assists only prior to or following the activity. 4-Supervision or Touching Assistance-helper provides verbal cues and/or touching/steadying and/or contact guard assistance as patient completes activity. Assistance may be provided throughout the activity or intermittently. 3-Partial/Moderate Assistance-helper does LESS THAN HALF the effort. [place] lifts, holds or supports trunk or limbs, but provides less than half the effort. 2-Substantial/Maximal Assistance-helper does MORE THAN HALF the effort. [place] lifts or holds trunk or limbs and provides more than half the effort. 1-Tzbdodssy-tmjojw does ALL the effort. Patient does none of the effort to complete the activity. Or, the assistance of 2 or more helpers is required for the patient to complete the activity. If activity was not attempted, code reason: 7-Patient Refused. 9-Not Applicable-not attempted and the patient did not perform the activity before the current illness, exacerbation or injury. 10-Not Attempted due to Environmental Limitations-(lack of equipment, weather restraints, etc.). 88-Not Attempted due to Medical Conditions or Safety Concerns. Roll Left to Right (QC): 6 Sit to Lying (QC): 6 Sit to Stand (QC): 3 Chair/Csj-im-Ntsra Xfer(QC): 3 Car Transfer (QC): 2 Gait Training Does the Patient Walk?: Yes Walk 10 feet (QC): 3 Walk 50 ft with 2 Turns(QC): 88 Walk 150 ft (QC): 88 Walking 10ft/uneven surface-QC: 88 Gait Persons Needed: 1 Gait Assistive Device: FWW Wheelchair Training Does the Pt Use a Wheelchair?: Yes Wheel 50 ft with 2 turns (QC): 5 Wheel 150 ft (QC): 5 Type of Wheelchair: Manual Stair Training 1 Step (curb) (QC): 88 4 Steps (QC): 88 12 Steps (QC): 88 Balance Picking up an Object (QC): 88 ADL-Treatment Eating (QC): 6 Oral Hygiene (QC): 6 Bathing Location: L Arm, R Arm, L Upper Leg, R Upper Leg, L Lower Leg (including foot), R Lower Leg (including foot), Chest, Abdomen, Perineal Area Shower/Bathe Self (QC): 3 Upper Body Dressing (QC): 3 Lower Body Dressing (QC): 2 On/Off Footwear (QC): 5 Toileting Hygiene (QC): 1 Toilet Transfer (QC): 2 Assessment/Plan Assessment and Plan Assess & Plan/Chief Complaint Assessment: Myopathy COVID-19 PNA Urinary retention Valdes cath in place Bowel incontinence Hypoxia O2 dependent BPH Frail Advanced age Sputum colonized with MRSA and ESBL Plan: IRF protocol but 120 minutes per day to accommodate hypoxia at activity [place] meds Melatonin at night 11/21/20: s/o IVF Monitor hypotension and hypoxia Appreciate Dr Cisneros ECHO done Add Remeron for sleep with Melatonin 11/22/20: No possibility of weaning O2 for now with this patient so needs on 21/06 and will update RT Increase activity 11/23/20: Maintain O2 Nebs Monitor BP 11/24/20: Venofer Labs and ABG and CT chest in am Dr Schrader consultation Maintain O2 Very fragile lungs 11/25/20: CT chest ABG Dr Schrader consultation 11/26/20: Dr Schrader appreciated Dr Marsh appreciated 11/27/20: Dr Marsh appreciated Monitor O2 11/28/20: Valdes cath in place Midline Venofer 11/29/20: Midline flushes Venofer Monitor closely Dramatic improvement 11/30/20: Dramatic improvement continues Monitor closely Increase O2 with therapy 12/01/20: Bowel incontinence could complicate DC plans Monitor urinary retention closely 12/02/20: Manage B/B incontinence Improved status Labs good 12/03/20: Improved insomnia Continue treatment B/B incontinence 12/04/20: TURP next Wed Hold OAC as of Wednesday Conferred with Dr Marsh and patient 12/05/20: Improved transfers Monitor closely O2 Incontinence management 12/06/20: Steady improvement TURP Wed Hold OAC as of Wednesday morning 12/07/20: Await second sputum Monitor closely O2 BM 12/08/20: TURP Wed Hold OAC Monitor closely Labs in am 12/09/20: TURP Wednesday Monitor closely 12/10/20: TURP tomorrow Monitor closely 2 units of blood today 12/12/20: Belladonna suppositories Monitor labs Hold OAC 12/13/20: Dr Marsh appreciated Pain control O2 Monitor closely 12/14/20: Monitor hematuria Pain control from TURP Continue therapy 12/15/20: BM regimen Monitor valdes cath Hold OAC 12/16/20: Ambulating Participating with therapy Valdes out tomorrow? 12/17/20: DC catheter tomorrow Monitor pain O2 wean (1) Myopathy (2) COVID-19 (3) Hypoxia (4) Urinary retention (5) Valdes catheter in place (6) BPH (benign prostatic hyperplasia) (7) Bowel incontinence (8) Supplemental oxygen dependent (9) Advanced age (10) Frailty BARB COLLINS DO Dec 17, 2020 08:42
--- NOTE | 2020-12-17 08:56 | Progress Note - Urology ---
Progress Note-Urology Progress Notes/Assess & Plan Progress/Assessment & Plan PLAN PETR MCKEON TMORROW Final Diagnosis URINE RETENTION DENTON MA MD Dec 17, 2020 08:56
[2020-12-17] MEDS: polyethylene glycoL POWDER 17 GM (MIRALAX) PACK PO SCH ×2 (09:00→20:39)
[2020-12-17] MEDS: SENNA W/DOCUSATE (SENOKOT S) TABLET PO SCH ×2 (09:00→20:38)
[2020-12-17] MEDS ORDERED: PHENAZOPYRIDINE 100 MG (PYRIDIUM) TABLET ONE (09:09)
[2020-12-17] MEDS: FOLIC ACID 1 MG TAB PO SCH (09:12)
[2020-12-17] MEDS: ROFLUMILAST 500 MCG TAB (DALIRESP) PO SCH (09:12)
[2020-12-17] MEDS: LACTOBACILLUS ACIDOPHILUS (PROBIOTIC) CAPSULE PO SCH ×2 (09:12→20:38)
[2020-12-17] MEDS: meTOprolol TARTRATE 25 MG (LOPRESSOR) TABLET PO SCH ×2 (09:12→20:38)
[2020-12-17] MEDS: TAMSULOSIN 0.4 MG (FLOMAX) CAP PO SCH ×2 (09:12→20:38)
[2020-12-17] MEDS: CYANOCOBALAMIN 1,000 MCG (VITAMIN B-12) TABLET PO SCH (09:12)
[2020-12-17] MEDS: LORATADINE (CLARITIN) 10 MG TAB PO SCH (09:12)
[2020-12-17] MEDS: FINASTERIDE (PROSCAR) 5 MG TAB PO SCH (09:12)
[2020-12-17] MEDS: DOCUSATE SODIUM 100 MG (COLACE) CAP PO SCH ×2 (09:13→20:38)
[2020-12-17] MEDS: PHENAZOPYRIDINE 100 MG (PYRIDIUM) TABLET PO SCH ×3 (09:15→18:40)
--- NOTE | 2020-12-17 10:17 | Physical Therapy Daily Note ---
PT Daily Note-Current Subjective Pt sitting on BS with OT present upon arrival. Pt agrees to PT/OT co-treat. Mental Status Patient Orientation: Person, Place, Situation Attachments: Oxygen (2L), Mejia Catheter Transfers SCALE: Activities may be completed with or without assistive devices. 6-Niotgkrqjq-ltedwsu completes the activity by him/herself with no assistance from a helper. 5-Set-up or Clean-up Assistance-helper sets up or cleans up; patient completes activity. [place] assists only prior to or following the activity. 4-Supervision or Touching Assistance-helper provides verbal cues and/or touching/steadying and/or contact guard assistance as patient completes activity. Assistance may be provided throughout the activity or intermittently. 3-Partial/Moderate Assistance-helper does LESS THAN HALF the effort. [place] lifts, holds or supports trunk or limbs, but provides less than half the effort. 2-Substantial/Maximal Assistance-helper does MORE THAN HALF the effort. [place] lifts or holds trunk or limbs and provides more than half the effort. 6-Rwadaltiw-aucavf does ALL the effort. Patient does none of the effort to complete the activity. Or, the assistance of 2 or more helpers is required for the patient to complete the activity. If activity was not attempted, code reason: 7-Patient Refused. 9-Not Applicable-not attempted and the patient did not perform the activity bef ore the current illness, exacerbation or injury. 10-Not Attempted due to Environmental Limitations-(lack of equipment, weather r estraints, etc.). 88-Not Attempted due to Medical Conditions or Safety Concerns. Sit to Stand (QC): 3 Toilet Transfer (QC): 3 Weight Bearing Full Weight Bearing Full Weight Bearing Exercises Seated Therapy Exercises: Ankle pumps, Long arc quads, Hip flexion, Kicking activity, Glut set Seated Reps: 15 Treatments Co-treat with OT ([id number]), skills of 2 clinicians required due to increased SOA, decreased activity tolerance and need of skilled instruction and care for all mobility. PT focusing on mobility and transfers while OT focused on ADLs and hand placement during mobility. Pt agrees to shower. Supine to sitting EOB, independent with HOB elevated. Assist x2 for SPT to shower chair with cutout for safety. Transported to shower with chair. Pt completed shower after setup using hand held shower, grab bars, shower chair and long handle sponge. Pt able to reach all areas except buttocks. Pt takes increased time due to increased SOA and O2 levels. Pt able to don/doff shirt by self. Due to pt's fatigue, assist x2 to manipulate lower body clothing. Pt able to don/doff socks by self. Pt completes Seated EX in recliner. After therapy, pt sitting in recliner with call light/phone in reach. All needs met in room. Assessment Current Status: Good Progress Pt is fatigued after shower and requires more assistance to transfer than yaya r in tx. Pt is able to shower with little help for feet only. PT Short Term Goals Short Term Goals Time Frame: Nov 27, 2020 Roll Left & Right: 3 Sit to lyin Lying to sitting on side of be: 3 Sit to stand: 3 Chair/nif-pn-bgemo transfer: 3 Walk 10 feet: 3 PT Alf Goals Alf Goals PT Alf Goals Time Frame: Dec 11, 2020 Roll Left & Right (QC): 4 Sit to Lying (QC): 4 Lying-Sitting on Side/Bed(QC): 4 Sit to Stand (QC): 4 Chair/Qip-wi-Ymqbm Xfer(QC): 4 Toilet Transfer (QC): 4 Car Transfer (QC): 3 Does the Patient Walk: Yes Walk 10 feet (QC): 3 Walk 50ft with 2 Turns (QC): 3 Walk 150 ft (QC): 88 Walking 10ft on Uneven Surface: 3 1 Step (curb) (QC): 3 4 Steps (QC): 88 12 Steps (QC): 88 Picking up an Object (QC): 88 Wheel 50 feet with 2 turns (QC: 6 Wheel 150 feet: 6 PT Plan Problem List Problem List: Activity Tolerance, Functional Strength, Transfer Treatment/Plan Treatment Plan: Continue Plan of Care Treatment Plan: Bed Mobility, Education, Functional Activity Leti, Functional Strength, Group Therapy, Gait, Safety, Therapeutic Exercise, Transfers Treatment Duration: Dec 11, 2020 Frequency: Modified Program (IRF) Estimated Hrs Per Day: 1 hour per day Patient and/or Family Agrees t: Yes Safety Risks/Education Patient Education: Transfer Techniques, Correct Positioning, Safety Issues Teaching Recipient: Patient Teaching Methods: Discussion Response to Teaching: Verbalize Understanding Time/GCodes Time In: 915 Time Out: 1015 Total Billed Treatment Time: 60 Total Billed Treatment 1, FA x4 (60m) Co-treat w/OT for 45m ([id number]) KARYN BAKER RIG HAND Dec 17, 2020 10:17
[2020-12-17] MEDS: NYSTATIN CREAM (MYCOSTATIN) 30 GM TUBE TP SCH ×3 (11:13→20:39)
[2020-12-17] MEDS: MICONAZOLE 2% POWDER (DESENEX AF) 90 GM TOP SCH ×2 (11:13→20:39)
[2020-12-17] MEDS: MONTELUKAST 10 MG (SINGULAIR) TAB PO SCH (11:13)
--- NOTE | 2020-12-17 11:13 | Occupational Ther Daily Note ---
OT Current Status-Daily Note Subjective Pt alert, lying in bed. Pt agrees to therapy. No c/o pain. Mental Status/Objective Patient Orientation: Person, Place, Time, Situation Attachments: Mejia Catheter, Oxygen (2L) ADL-Treatment 1st [id number] with PT ([id number]), skills of 2 clinicians required due to increased SOA, decreased activity tolerance and need of skilled instruction and care for all mobility. PT focusing on mobility and transfers while OT focused on ADLs and hand placement during mobility. Pt agrees to shower. Supine to sitting EOB, independent with HOB elevated. Assist x2 for SPT to shower chair with cutout for safety. Transported to shower with chair. Pt completed shower after setup using hand held shower, grabbars, shower chair and long handle sp onge. Pt able to reach all areas except buttocks. Pt takes increased time due to increased SOA and O2 levels. Pt able to don/doff shirt by self. Due to pt's fatigue, assist x2 to manipulate lower body clothing. Pt able to don/doff socks by self. After therapy, pt sitting in recliner with call light/phone in reach. All needs met in room. Therapy Code Descriptions/Definitions Functional [place] Measure: 0=Not Assessed/NA 4=Minimal Assistance 1=Total Assistance 5=Supervision or Setup 2=Maximal Assistance 6=Modified [place] 3=Moderate Assistance 7=Complete IndependenceSCALE: Activities may be completed with or without assistive devices. 5-Jecwutsbbc-vdocuem completes the activity by him/herself with no assistance from a helper. 5-Set-up or Clean-up Assistance-helper sets up or cleans up; patient completes activity. [place] assists only prior to or following the activity. 4-Supervision or Touching Assistance-helper provides verbal cues and/or touching/steadying and/or contact guard assistance as patient completes activit y. Assistance may be provided throughout the activity or intermittently. 3-Partial/Moderate Assistance-helper does LESS THAN HALF the effort. [place] lifts, holds or supports trunk or limbs, but provides less than half the effort. 2-Substantial/Maximal Assistance-helper does MORE THAN HALF the effort. [place] lifts or holds trunk or limbs and provides more than half the effort. 2-Jyfeytofh-crjpvu does ALL the effort. Patient does none of the effort to complete the activity. Or, the assistance of 2 or more helpers is required for the patient to complete the activity. If activity was not attempted, code reason: 7-Patient Refused. 9-Not Applicable-not attempted and the patient did not perform the activity before the current illness, exacerbation or injury. 10-Not Attempted due to Environmental Limitations-(lack of equipment, weather restraints, etc.). 88-Not Attempted due to Medical Conditions or Safety Concerns. Shower/Bathe Self (QC): 3 Upper Body Dressing (QC): 5 Lower Body Dressing (QC): 1 On/Off Footwear: 5 Toileting Hygiene (QC): 1 (Assist x1 for standing assist x1 for cleansing ) Toilet Transfer (QC): 4 Other Treatment 2nd session([id number])-CGA for SPT from recliner to w/c. Pt propelled w/c to bathroom to complete oral care. Pt then propelled w/c throughout ARU to increase B UE strength for daily functional tasks. Pt required only 1 recovery break. After therapy, pt stated that he wanted to stay in w/c. Call light/phone in reach. All needs met in room. OT Short Term Goals Short Term Goals Time Frame: Dec 11, 2020 Shower/bathe self: 4 Upper body dressin Lower body dressin OT Relay Operator Goals Relay Operator Goals Time Frame: Dec 20, 2020 Eating (QC): 6 Oral Hygiene (QC): 6 Toileting Hygiene (QC): 6 Shower/Bathe Self (QC): 6 Upper Body Dressing (QC): 6 Lower Body Dressing (QC): 6 On/Off Footwear (QC): 6 Additional Goals: 1-Demonstrate ADL Tasks, 2-Verbalize Understanding, 3-ImproveStrength/Leti 1=Demonstrate adherence to instructed precautions during ADL tasks. 2=Patient will verbalize/demonstrate understanding of assistive devices/modifications for ADL. 3=Patient will improve strength/tolerance for activity to enable patient to perform ADL's. OT Education/Plan Problem List/Assessment Assessment: Decreased Activ Tolerance, Decreased UE Strength, Impaired Funct Balance, Impaired Self-Care Skills Discharge Recommendations Plan/Recommendations: Continue POC Treatment Plan/Plan of Care Patient would benefit from OT for education, treatment and training to promote independence in ADL's, mobility, safety and/or upper extremity function for ADL's. Plan of Care: ADL Retraining, Functional Mobility, Group Exercise/Act as Ind, UE Funct Exercise/Act Treatment Duration: Dec 20, 2020 Frequency: Modified Program (IRF) Estimated Hrs Per Day: 1 hour per day Rehab Potential: Fair Time/GCodes Start Time: 09:00 Stop Time: 10:00 Total Time Billed (hr/min): 60 Billed Treatment Time 2 visits-ADL 5 (75 min) EX 1 (15 min) co-treat with PT [id number], individual [id number] VIOLET BACA Dec 17, 2020 11:13
[2020-12-17] MEDS: PANTOPRAZOLE 40 MG (PROTONIX) TAB PO SCH (11:14)
--- NOTE | 2020-12-17 12:37 | Diagnostic Imaging Report ---
INDICATION: Dyspnea. TECHNIQUE/COMPARISON: An AP view of the chest was obtained with comparison made to the study of 11/24/2020. FINDINGS: There is suboptimal inspiration. Overall, the heart size is within normal limits. Patchy bilateral interstitial and alveolar densities may be slightly improved compared to the previous study. No pneumothorax or new infiltrate is seen. IMPRESSION: Persistent bilateral patchy infiltrates which appear slightly improved. Continued radiographic followup would be of value. Dictated by: Dictated on workstation # [id number]
--- NOTE | 2020-12-17 14:41 | Physical Therapy Daily Note ---
PT Daily Note-Current Subjective Pt sitting in [facility] in room upon arrival. Pt agrees to PT. Pain Location: No Pain Reported Mental Status Patient Orientation: Person, Place, Situation Attachments: Oxygen (2L), Mejia Catheter Transfers SCALE: Activities may be completed with or without assistive devices. 0-Olhvylsclt-svwptbf completes the activity by him/herself with no assistance from a helper. 5-Set-up or Clean-up Assistance-helper sets up or cleans up; patient completes activity. [place] assists only prior to or following the activity. 4-Supervision or Touching Assistance-helper provides verbal cues and/or touching/steadying and/or contact guard assistance as patient completes activity. Assistance may be provided throughout the activity or intermittently. 3-Partial/Moderate Assistance-helper does LESS THAN HALF the effort. [place] lifts, holds or supports trunk or limbs, but provides less than half the effort. 2-Substantial/Maximal Assistance-helper does MORE THAN HALF the effort. [place] lifts or holds trunk or limbs and provides more than half the effort. 7-Blwdgppsk-rkewia does ALL the effort. Patient does none of the effort to complete the activity. Or, the assistance of 2 or more helpers is required for the patient to complete the activity. If activity was not attempted, code reason: 7-Patient Refused. 9-Not Applicable-not attempted and the patient did not perform the activity before the current illness, exacerbation or injury. 10-Not Attempted due to Environmental Limitations-(lack of equipment, weather restraints, etc.). 88-Not Attempted due to Medical Conditions or Safety Concerns. Weight Bearing Full Weight Bearing Full Weight Bearing Wheelchair Training Does the Pt Use a Wheelchair?: Yes Wheel 50 ft with 2 turns (QC): 5 Wheel 150 ft (QC): 5 Type of Wheelchair: Manual Exercises Seated Therapy Exercises: Ankle pumps, Long arc quads, Hip flexion, Kicking activity, Glut set Seated Reps: 15 Treatments Declines needing BR. Propels [facility] in hallway taking RB as needed. Propels 250' x2. Completes Seated EX and returns to room at end of tx. Pt wants to remain in [facility] at end of tx. All need met, call light in hand. Assessment Current Status: Good Progress Pt in good spirits but reports slight fatigue from morning tx. PT Short Term Goals Short Term Goals Time Frame: Nov 27, 2020 Roll Left & Right: 3 Sit to lyin Lying to sitting on side of be: 3 Sit to stand: 3 Chair/kor-yh-xiqrh transfer: 3 Walk 10 feet: 3 PT Group Home Goals Voice Engineer Goals PT Voice Engineer Goals Time Frame: Dec 11, 2020 Roll Left & Right (QC): 4 Sit to Lying (QC): 4 Lying-Sitting on Side/Bed(QC): 4 Sit to Stand (QC): 4 Chair/Avb-qg-Tjvtg Xfer(QC): 4 Toilet Transfer (QC): 4 Car Transfer (QC): 3 Does the Patient Walk: Yes Walk 10 feet (QC): 3 Walk 50ft with 2 Turns (QC): 3 Walk 150 ft (QC): 88 Walking 10ft on Uneven Surface: 3 1 Step (curb) (QC): 3 4 Steps (QC): 88 12 Steps (QC): 88 Picking up an Object (QC): 88 Wheel 50 feet with 2 turns (QC: 6 Wheel 150 feet: 6 PT Plan Problem List Problem List: Activity Tolerance, Functional Strength, Transfer Treatment/Plan Treatment Plan: Continue Plan of Care Treatment Plan: Bed Mobility, Education, Functional Activity Leti, Functional Strength, Group Therapy, Gait, Safety, Therapeutic Exercise, Transfers Treatment Duration: Dec 11, 2020 Frequency: Modified Program (IRF) Estimated Hrs Per Day: 1 hour per day Patient and/or Family Agrees t: Yes Safety Risks/Education Patient Education: Correct Positioning, W/C Management, Safety Issues Teaching Recipient: Patient Teaching Methods: Discussion Response to Teaching: Verbalize Understanding Time/GCodes Time In: 1330 Time Out: 1400 Total Billed Treatment Time: 30 Total Billed Treatment 1, FA (10m) & WCH (20m) KARYN BAKER CIGAR [employer] PROCESSING SUPERVISOR Dec 17, 2020 14:41
[2020-12-17 18:00] VITALS: BP 100/65
[2020-12-17] MEDS: MIRTAZAPINE 15 MG (REMERON) TAB PO SCH (20:38)
[2020-12-17] MEDS: ALPRAZolam 0.25 MG (XANAX) TAB PO PRN (20:38)
[2020-12-17] MEDS: MELATONIN 10 MG TABLET PO SCH (20:48)
[2020-12-18] MEDS: predniSONE 10 MG TAB PO SCH (06:15)
[2020-12-18 06:23] VITALS: BP 106/62
[2020-12-18] MEDS: PANTOPRAZOLE 40 MG (PROTONIX) TAB PO SCH (08:03)
[2020-12-18] MEDS: ROFLUMILAST 500 MCG TAB (DALIRESP) PO SCH (08:03)
[2020-12-18] MEDS: CYANOCOBALAMIN 1,000 MCG (VITAMIN B-12) TABLET PO SCH (08:03)
[2020-12-18] MEDS: LACTOBACILLUS ACIDOPHILUS (PROBIOTIC) CAPSULE PO SCH ×2 (08:03→21:10)
[2020-12-18] MEDS: DOCUSATE SODIUM 100 MG (COLACE) CAP PO SCH ×2 (08:03→21:10)
[2020-12-18] MEDS: FINASTERIDE (PROSCAR) 5 MG TAB PO SCH (08:03)
[2020-12-18] MEDS: TAMSULOSIN 0.4 MG (FLOMAX) CAP PO SCH ×2 (08:03→21:10)
[2020-12-18] MEDS: LORATADINE (CLARITIN) 10 MG TAB PO SCH (08:04)
[2020-12-18] MEDS: PHENAZOPYRIDINE 100 MG (PYRIDIUM) TABLET PO SCH ×3 (08:04→18:11)
[2020-12-18] MEDS: meTOprolol TARTRATE 25 MG (LOPRESSOR) TABLET PO SCH ×2 (08:04→21:10)
[2020-12-18] MEDS: FOLIC ACID 1 MG TAB PO SCH (08:04)
[2020-12-18] MEDS: MICONAZOLE 2% POWDER (DESENEX AF) 90 GM TOP SCH ×2 (08:04→21:12)
[2020-12-18] MEDS: MONTELUKAST 10 MG (SINGULAIR) TAB PO SCH (08:04)
[2020-12-18] MEDS: NYSTATIN CREAM (MYCOSTATIN) 30 GM TUBE TP SCH ×3 (08:05→21:13)
[2020-12-18] MEDS: polyethylene glycoL POWDER 17 GM (MIRALAX) PACK PO SCH ×2 (09:59→20:55)
[2020-12-18] MEDS: SENNA W/DOCUSATE (SENOKOT S) TABLET PO SCH ×2 (09:59→21:10)
--- NOTE | 2020-12-18 10:10 | Physical Therapy Daily Note ---
PT Daily Note-Current Subjective Pt laying Supine in bed upon arrival. Pt agrees to PT/OT co-treat. Transfers SCALE: Activities may be completed with or without assistive devices. 4-Mepqlvklzt-rktqgxn completes the activity by him/herself with no assistance from a helper. 5-Set-up or Clean-up Assistance-helper sets up or cleans up; patient completes activity. [place] assists only prior to or following the activity. 4-Supervision or Touching Assistance-helper provides verbal cues and/or touching/steadying and/or contact guard assistance as patient completes acti vity. Assistance may be provided throughout the activity or intermittently. 3-Partial/Moderate Assistance-helper does LESS THAN HALF the effort. [place] lifts, holds or supports trunk or limbs, but provides less than half the effort. 2-Substantial/Maximal Assistance-helper does MORE THAN HALF the effort. [place] lifts or holds trunk or limbs and provides more than half the effort. 4-Hgppfzmgn-neginq does ALL the effort. Patient does none of the effort to complete the activity. Or, the assistance of 2 or more helpers is required for the patient to complete the activity. If activity was not attempted, code reason: 7-Patient Refused. 9-Not Applicable-not attempted and the patient did not perform the activity before the current illness, exacerbation or injury. 10-Not Attempted due to Environmental Limitations-(lack of equipment, weather restraints, etc.). 88-Not Attempted due to Medical Conditions or Safety Concerns. Weight Bearing Full Weight Bearing Full Weight Bearing Gait Training Does the Patient Walk?: Yes Distance: 14', 14', 16' Walk 10 feet (QC): 4 Gait Persons Needed: 1 Gait Assistive Device: FWW Wheelchair Training Does the Pt Use a Wheelchair?: Yes Wheel 50 ft with 2 turns (QC): 5 Wheel 150 ft (QC): 5 Type of Wheelchair: Manual Treatments Co-treat with PT ([id number]), skills of 2 clinicians required for skilled instruction and care due to increased need of O2, decreased activity tolerance and mobility. PT focusing on transfers, ambulation and mobility while OT focusing on ADLs and B UE placement during ambulation and transfers. Independent supine to sitting EOB with HOB slightly elevated. CGA for SPT from EOB to BSC. Pt attempted to don lower body clothing without AE, pt became SOA and had difficulty completing. Pt required assist to stand and assist to hike pants over hips, min A x2. Min A x2 for toileting hygiene and clothing manipulation. Pt propelled w/c to bathroom and complete oral care independently. Pt propelled WCH in hallway before amb. Pt amb. 14', 14' & 16' w/FWW (taking RB between each). Pt returns to room and transfers to recliner to rest at end of tx. All needs met, call light in hand. Assessment Current Status: Good Progress Pt is motivated and is gaining strength and activity tolerance for further independence. PT Short Term Goals Short Term Goals Time Frame: Nov 27, 2020 Roll Left & Right: 3 Sit to lyin Lying to sitting on side of be: 3 Sit to stand: 3 Chair/vek-xu-wynzx transfer: 3 Walk 10 feet: 3 PT Supervisor Machining Goals Custodial Goals PT Supervisor Machining Goals Time Frame: Dec 11, 2020 Roll Left & Right (QC): 4 Sit to Lying (QC): 4 Lying-Sitting on Side/Bed(QC): 4 Sit to Stand (QC): 4 Chair/Ien-yl-Lhnnj Xfer(QC): 4 Toilet Transfer (QC): 4 Car Transfer (QC): 3 Does the Patient Walk: Yes Walk 10 feet (QC): 3 Walk 50ft with 2 Turns (QC): 3 Walk 150 ft (QC): 88 Walking 10ft on Uneven Surface: 3 1 Step (curb) (QC): 3 4 Steps (QC): 88 12 Steps (QC): 88 Picking up an Object (QC): 88 Wheel 50 feet with 2 turns (QC: 6 Wheel 150 feet: 6 PT Plan Problem List Problem List: Activity Tolerance, Gait Treatment/Plan Treatment Plan: Continue Plan of Care Treatment Plan: Bed Mobility, Education, Functional Activity Leti, Functional Strength, Group Therapy, Gait, Safety, Therapeutic Exercise, Transfers Treatment Duration: Dec 11, 2020 Frequency: Modified Program (IRF) Estimated Hrs Per Day: 1 hour per day Patient and/or Family Agrees t: Yes Safety Risks/Education Patient Education: Gait Training, Transfer Techniques, Correct Positioning, Safety Issues Teaching Recipient: Patient Teaching Methods: Discussion Response to Teaching: Verbalize Understanding Time/GCodes Time In: 900 Time Out: 1000 Total Billed Treatment Time: 60 Total Billed Treatment 1, FA x3 (40m) & GT (20m) Co-treat w/OT for 60m KARYN BAKER GLOVE FORMER Dec 18, 2020 10:10
--- NOTE | 2020-12-18 10:15 | Occupational Ther Daily Note ---
OT Current Status-Daily Note Subjective Pt alert, lying in bed. Pt agrees to therapy. C/o pain with urination. No other c/o pain. Mental Status/Objective Patient Orientation: Person, Place, Time, Situation Attachments: Oxygen (2L) ADL-Treatment Co-treat with PT ([id number]), skills of 2 clinicians required for skilled instruction and care due to increased need of O2, decreased activity tolerance and mobility. PT focusing on transfers, ambulation and mobility while OT focusing on ADLs and B UE placement during ambulation and transfers. Independent supine to sitting EOB with HOB slightly elevated. CGA for SPT from EOB to BSC. Pt attempted to don lower body clothing without AE, pt became SOA and had difficulty completing. Pt required assist to stand and assist to hike pants over hips, min A x2. Min A x2 for toileting hygiene and clothing manipulation. Pt propelled w/c to bathroom and complete oral care independently. Therapy Code Descriptions/Definitions Functional [place] Measure: 0=Not Assessed/NA 4=Minimal Assistance 1=Total Assistance 5=Supervision or Setup 2=Maximal Assistance 6=Modified [place] 3=Moderate Assistance 7=Complete IndependenceSCALE: Activities may be completed with or without assistive devices. 9-Yacmysgtmd-wfcgjfv completes the activity by him/herself with no assistance from a helper. 5-Set-up or Clean-up Assistance-helper sets up or cleans up; patient completes activity. [place] assists only prior to or following the activity. 4-Supervision or Touching Assistance-helper provides verbal cues and/or touching/steadying and/or contact guard assistance as patient completes activity. Assistance may be provided throughout the activity or intermittently. 3-Partial/Moderate Assistance-helper does LESS THAN HALF the effort. [place] lifts, holds or supports trunk or limbs, but provides less than half the effort. 2-Substantial/Maximal Assistance-helper does MORE THAN HALF the effort. [place] lifts or holds trunk or limbs and provides more than half the effort. 5-Xzmqoeoot-vaehdq does ALL the effort. Patient does none of the effort to complete the activity. Or, the assistance of 2 or more helpers is required for the patient to complete the activity. If activity was not attempted, code reason: 7-Patient Refused. 9-Not Applicable-not attempted and the patient did not perform the activity before the current illness, exacerbation or injury. 10-Not Attempted due to Environmental Limitations-(lack of equipment, weather restraints, etc.). 88-Not Attempted due to Medical Conditions or Safety Concerns. Oral Hygiene (QC): 6 Lower Body Dressing (QC): 1 Toileting Hygiene (QC): 1 Toilet Transfer (QC): 4 Other Treatment See PT notes for ambulation progress. After therapy, pt sitting in recliner with call light/phone in reach. All needs met in room. OT Short Term Goals Short Term Goals Time Frame: Dec 11, 2020 Shower/bathe self: 4 Upper body dressin Lower body dressin OT Bull Chain Operator Goals Bull Chain Operator Goals Time Frame: Dec 20, 2020 Eating (QC): 6 Oral Hygiene (QC): 6 Toileting Hygiene (QC): 6 Shower/Bathe Self (QC): 6 Upper Body Dressing (QC): 6 Lower Body Dressing (QC): 6 On/Off Footwear (QC): 6 Additional Goals: 1-Demonstrate ADL Tasks, 2-Verbalize Understanding, 3- ImproveStrength/Leti 1=Demonstrate adherence to instructed precautions during ADL tasks. 2=Patient will verbalize/demonstrate understanding of assistive devices/modifications for ADL. 3=Patient will improve strength/tolerance for activity to enable patient to perform ADL's. OT Education/Plan Problem List/Assessment Assessment: Decreased Activ Tolerance, Impaired Funct Balance, Impaired Self- Care Skills Discharge Recommendations Plan/Recommendations: Continue POC Treatment Plan/Plan of Care Patient would benefit from OT for education, treatment and training to promote independence in ADL's, mobility, safety and/or upper extremity function for ADL's. Plan of Care: ADL Retraining, Functional Mobility, Group Exercise/Act as Ind, UE Funct Exercise/Act Treatment Duration: Dec 20, 2020 Frequency: Modified Program (IRF) Estimated Hrs Per Day: 1 hour per day Rehab Potential: Fair Time/GCodes Start Time: 09:00 Stop Time: 10:00 Total Time Billed (hr/min): 60 Billed Treatment Time 1 visit-ADL 2 (30 min) FA 2 (30 min) co-treat with PT [id number] VIOLET BACA Dec 18, 2020 10:15
--- NOTE | 2020-12-18 10:37 | PM&R Progress Note ---
Subjective HPI/CC On Admission Date Seen by Provider: Dec 18, 2020 Time Seen by Provider: 09:00 Subjective/Events-last exam 12/18/20: Bowels are moving today Passed a clot in the urine today Hemorrhoid cream will be provided Catheter was removed today per Dr. Marsh 12/17/20: Catheter will be taken out tomorrow Has not required continuous bladder irrigation Bowels are moving pretty well Overall participating in therapy and getting stronger 12/16/20: Hgb 9.4 Getting ready to stand with walker and help Valdes Catheter still in place, will remove on Wednesday per urology Checked meds and labs 12/15/20: Doing well BM after suppository Valdes in place no hematuria Bed lamar for BM 12/14/20: No longer taking Belladonna supp Urine cleared TBI DC Improved overall Holding OAC 12/13/20: Dr Marsh assessed him to be doing well Slowing the CBI O2 2L/min wbc 11 Belladonna supp help his pain 12/12/20: s/p TURP Belladonna supp for pain Monitor labs Holding OAC Levaquin 500mg daily Appreciate Dr Marsh 12/10/20: TURP scheduled for tomorrow morning Receiving two units of blood in preparation for the surgery since there is blood loss during the surgery Remains on two liters of oxygen Overall feels like he is doing really well 12/09/20: Bowels moved after suppository yesterday Holding anticoagulation for TURP Hgb 8.7 s/p five doses of Venofer Overall feels pretty good 12/08/20: MRSA of sputum still present TURP Wed Holding OAC now for surgery Standing a bit on his own with sit to stand 12/07/20: Second sputum done and pending BM incontinent Hold Eliquis tomorrow in prep for TURP 2L/min O2 maintained Sit to stand is helpful 12/06/20/: Steady improvement Dr Pritchett Wednesday for toenail care Second sputum pending to get out of isolation BM today 12/05/20: BM today 2L/min BP low so will monitor closely Improved transfers Updated patient and his who was on the phone 12/04/20: Pt slept very well again Coughing up a little bit more sputum that does show MRSA and ESBL, will remain in isolation Valdes is back in Will have TURP on Wednesday, holding Eliquis on Wednesday Incontinence of bowels is noted Overall extremely improved 12/03/20: Discontinued catheter yesterday by Dr. 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 Up in chair today BM++ Good outlook O2 at 3L/min Increase O2 during therapies 11/29/20: No new issues Midline was placed now flushes maintained Much improved status Down to 1 L of oxygen Increased oxygen requirement with exercise Still with Valdes catheter in place Upright in wheelchair today Dramatic improvement 11/28/20: Slept a bit better Midline for Venofer will be placed Much improved status BSC today Valdes cath replaced 11/27/20: Pt remains on 1 liter per minute of oxygen Appears to be much improved today Cystoscope done today showing large prostate Proscar along with Flomax was initiated Cath was done and obtained 1000cc of urine Nystatin cream and powder will be initiated Overall much improved 11/26/20: Pt did not sleep last night due to urinary frequency Had to do straight in and out cath x4 last night Dr. Marsh will be updated Blood in the urine 1 liter of O2 now but will need a higher level when he is working out CT chest and ABG reviewed 11/25/20: ABG is pending from not being drawn yet CT of the chest will be performed, Dr. Schrader has been updated Bowels moved yesterday 11/24/20: Venofer IV started and I explained why I started that for him Will check CT scan of chest tomorrow and consult Dr Schrader Labs and ABG ordered as well Still very tachypneic with conversation and at rest Monitoring BP 2L/min 11/23/20: No orthostasis today Worked with PT OT BM++ O2 maintained 11/22/20: Hgb 8.6 today Feels better since IVF 500cc yesterday and changed cardiac meds by Dr Cisneros Justice guevara was born and he is thrilled about that Valdes cath still in place Fecal incontinence noted RT left him without O2 since he was good BRIEFLY on room air after Nebs for 1 hour and spot checked and he was at 85% and he was very short of breath just resting 11/21/20: Had episode of hypotension 76/40 with symptoms when got to edge of bed so laid back down, Cardiology notified and given 500cc of IVF Patient is on a waiver due to COVID and hypoxia for slow therapy and only 120 minutes per day Cardizem CD 120mg now after changed by Dr Cisneros ECHO done Stopped Lasix Valdes cath remains in place Review of Systems General: Fatigue, Malaise Objective Exam Vital Signs Vital Signs Date Time Temp Pulse Resp B/P (MAP) Pulse Ox O2 Delivery O2 Flow Rate FiO2 12/18/20 20:54 96 Nasal Cannula 2.00 12/18/20 17:29 36.8 91 18 103/67 (79) Capillary Refill : Less Than 3 Seconds General Appearance: No Apparent Distress, WD/WN, Chronically ill, Thin HEENT: PERRL/EOMI, Normal ENT Inspection, Pharynx Normal Neck: Full Range of Motion, Normal Inspection, Non Tender, Supple, Carotid Bruit Respiratory: Chest Non Tender, Lungs Clear, No Respiratory Distress, Accessory Muscle Use, Decreased Breath Sounds Cardiovascular: Regular Rate, Rhythm, No Edema, No Gallop, No JVD, No Murmur, Normal Peripheral Pulses Gastrointestinal: Normal Bowel Sounds, No Organomegaly, No Pulsatile Mass, Non Tender, Soft Back: Normal Inspection, No CVA Tenderness, No Vertebral Tenderness Extremity: Normal Capillary Refill, Normal Inspection, Normal Range of Motion, Non Tender, No Calf Tenderness, No Pedal Edema Neurologic/Psychiatric: Alert, Oriented x3, No Motor/Sensory Deficits, Normal Mood/Affect, Motor Weakness (generalized 2/5 lower extremities, 3/5 upper extremities) Skin: Normal Color, Warm/Dry Lymphatic: No Adenopathy Results/Procedures Lab Patient resulted labs reviewed. FIM Transfers Therapy Code Descriptions/Definitions Functional [place] Measure: 0=Not Assessed/NA 4=Minimal Assistance 1=Total Assistance 5=Supervision or Setup 2=Maximal Assistance 6=Modified [place] 3=Moderate Assistance 7=Complete IndependenceSCALE: Activities may be completed with or without assistive devices. 0-Kgkplguqvo-afadoby completes the activity by him/herself with no assistance from a helper. 5-Set-up or Clean-up Assistance-helper sets up or cleans up; patient completes activity. [place] assists only prior to or following the activity. 4-Supervision or Touching Assistance-helper provides verbal cues and/or touching/steadying and/or contact guard assistance as patient completes activity. Assistance may be provided throughout the activity or intermittently. 3-Partial/Moderate Assistance-helper does LESS THAN HALF the effort. [place] lifts, holds or supports trunk or limbs, but provides less than half the effort. 2-Substantial/Maximal Assistance-helper does MORE THAN HALF the effort. [place] lifts or holds trunk or limbs and provides more than half the effort. 7-Lfkxnmjyz-dswuog does ALL the effort. Patient does none of the effort to complete the activity. Or, the assistance of 2 or more helpers is required for the patient to complete the activity. If activity was not attempted, code reason: 7-Patient Refused. 9-Not Applicable-not attempted and the patient did not perform the activity before the current illness, exacerbation or injury. 10-Not Attempted due to Environmental Limitations-(lack of equipment, weather restraints, etc.). 88-Not Attempted due to Medical Conditions or Safety Concerns. Roll Left to Right (QC): 6 Sit to Lying (QC): 6 Sit to Stand (QC): 3 Chair/Uac-nr-Hligr Xfer(QC): 3 Car Transfer (QC): 2 Gait Training Walk 10 feet (QC): 3 Walk 50 ft with 2 Turns(QC): 88 Walk 150 ft (QC): 88 Walking 10ft/uneven surface-QC: 88 Gait Persons Needed: 1 Gait Assistive Device: FWW Wheelchair Training Does the Pt Use a Wheelchair?: Yes Wheel 50 ft with 2 turns (QC): 5 Wheel 150 ft (QC): 5 Type of Wheelchair: Manual Stair Training 1 Step (curb) (QC): 88 4 Steps (QC): 88 12 Steps (QC): 88 Balance Picking up an Object (QC): 88 ADL-Treatment Eating (QC): 6 Oral Hygiene (QC): 6 Bathing Location: L Arm, R Arm, L Upper Leg, R Upper Leg, L Lower Leg (including foot), R Lower Leg (including foot), Chest, Abdomen, Perineal Area Shower/Bathe Self (QC): 3 Upper Body Dressing (QC): 5 Lower Body Dressing (QC): 1 On/Off Footwear (QC): 5 Toileting Hygiene (QC): 1 Toilet Transfer (QC): 4 Assessment/Plan Assessment and Plan Assess & Plan/Chief Complaint Assessment: Myopathy COVID-19 PNA Urinary retention Valdes cath in place Bowel incontinence Hypoxia O2 dependent BPH Frail Advanced age Sputum colonized with MRSA and ESBL Plan: IRF protocol but 120 minutes per day to accommodate hypoxia at activity [place] meds Melatonin at night 11/21/20: s/o IVF Monitor hypotension and hypoxia Appreciate Dr Cisneros ECHO done Add Remeron for sleep with Melatonin 11/22/20: No possibility of weaning O2 for now with this patient so needs on 21/06 and will update RT Increase activity 11/23/20: Maintain O2 Nebs Monitor BP 11/24/20: Venofer Labs and ABG and CT chest in am Dr Schrader consultation Maintain O2 Very fragile lungs 11/25/20: CT chest ABG Dr Schrader consultation 11/26/20: Dr Schrader appreciated Dr Marsh appreciated 11/27/20: Dr Marsh appreciated Monitor O2 11/28/20: Valdes cath in place Midline Venofer 11/29/20: Midline flushes Venofer Monitor closely Dramatic improvement 11/30/20: Dramatic improvement continues Monitor closely Increase O2 with therapy 12/01/20: Bowel incontinence could complicate DC plans Monitor urinary retention closely 12/02/20: Manage B/B incontinence Improved status Labs good 12/03/20: Improved insomnia Continue treatment B/B incontinence 12/04/20: TURP next Wed Hold OAC as of Wednesday Conferred with Dr Marsh and patient 12/05/20: Improved transfers Monitor closely O2 Incontinence management 12/06/20: Steady improvement TURP Wed Hold OAC as of Wednesday morning 12/07/20: Await second sputum Monitor closely O2 BM 12/08/20: TURP Wed Hold OAC Monitor closely Labs in am 12/09/20: TURP Wednesday Monitor closely 12/10/20: TURP tomorrow Monitor closely 2 units of blood today 12/12/20: Belladonna suppositories Monitor labs Hold OAC 12/13/20: Dr Marsh appreciated Pain control O2 Monitor closely 12/14/20: Monitor hematuria Pain control from TURP Continue therapy 12/15/20: BM regimen Monitor valdes cath Hold OAC 12/16/20: Ambulating Participating with therapy Valdes out tomorrow? 12/17/20: DC catheter tomorrow Monitor pain O2 wean 12/18/20: Monitor closely Dramatic improvement DC catheter (1) Myopathy (2) COVID-19 (3) Hypoxia (4) Urinary retention (5) Valdes catheter in place (6) BPH (benign prostatic hyperplasia) (7) Bowel incontinence (8) Supplemental oxygen dependent (9) Advanced age (10) Frailty BARB COLLINS DO Dec 18, 2020 10:37
[2020-12-18] MEDS: ADVAIR HFA 115/21 MCG INHALER 8 GM IH SCH ×2 (10:42→20:53)
[2020-12-18] MEDS: RT-ALBUTEROL/IPRATROPIUM 3 ML (DUONEB) VIAL IH SCH ×2 (10:42→20:53)
--- NOTE | 2020-12-18 10:52 | Progress Note - Urology ---
Progress Note-Urology Progress Notes/Assess & Plan Progress/Assessment & Plan PETR PEREZ Final Diagnosis RETENTION DENTON MA MD Dec 18, 2020 10:52
[2020-12-18] MEDS ORDERED: PREPARATION H OINTMENT 57 GR TUBE PR PRN (12:45)
--- NOTE | 2020-12-18 13:23 | Occupational Ther Daily Note ---
OT Current Status-Daily Note Subjective Pt alert, sitting in recliner. Pt agrees to therapy. No c/o pain at this time. Mental Status/Objective Patient Orientation: Person, Place, Time, Situation Attachments: Oxygen (2L) ADL-Treatment Pt educated on AE for lower body dressing. Due to pt's SOA with exertion, modified dressing techniques introduced. Research Associate Quality Control Qc and dressing stick was given to pt to use while in hospital. Pt demonstrated use of both first with theraband simulation then using briefs. Pt able to complete with each piece of equipment. Pt continues to work on strengthening and standing balance to be able to hike pants over hips. After session, pt sitting in recliner with call light/phone in reach. All needs met in room. Therapy Code Descriptions/Definitions Functional [place] Measure: 0=Not Assessed/NA 4=Minimal Assistance 1=Total Assistance 5=Supervision or Setup 2=Maximal Assistance 6=Modified [place] 3=Moderate Assistance 7=Complete IndependenceSCALE: Activities may be completed with or without assistive devices. 2-Oiqmkyivej-mpnirol completes the activity by him/herself with no assistance from a helper. 5-Set-up or Clean-up Assistance-helper sets up or cleans up; patient completes activity. [place] assists only prior to or following the activity. 4-Supervision or Touching Assistance-helper provides verbal cues and/or touching/steadying and/or contact guard assistance as patient completes activit y. Assistance may be provided throughout the activity or intermittently. 3-Partial/Moderate Assistance-helper does LESS THAN HALF the effort. [place] lifts, holds or supports trunk or limbs, but provides less than half the effort. 2-Substantial/Maximal Assistance-helper does MORE THAN HALF the effort. [place] lifts or holds trunk or limbs and provides more than half the effort. 3-Frylqxmzz-mmeiyd does ALL the effort. Patient does none of the effort to complete the activity. Or, the assistance of 2 or more helpers is required for the patient to complete the activity. If activity was not attempted, code reason: 7-Patient Refused. 9-Not Applicable-not attempted and the patient did not perform the activity before the current illness, exacerbation or injury. 10-Not Attempted due to Environmental Limitations-(lack of equipment, weather restraints, etc.). 88-Not Attempted due to Medical Conditions or Safety Concerns. OT Short Term Goals Short Term Goals Time Frame: Dec 11, 2020 Shower/bathe self: 4 Upper body dressin Lower body dressin OT Graduate Studies Dean Goals Graduate Studies Dean Goals Time Frame: Dec 20, 2020 Eating (QC): 6 Oral Hygiene (QC): 6 Toileting Hygiene (QC): 6 Shower/Bathe Self (QC): 6 Upper Body Dressing (QC): 6 Lower Body Dressing (QC): 6 On/Off Footwear (QC): 6 Additional Goals: 1-Demonstrate ADL Tasks, 2-Verbalize Understanding, 3- ImproveStrength/Leti 1=Demonstrate adherence to instructed precautions during ADL tasks. 2=Patient will verbalize/demonstrate understanding of assistive devices/modifications for ADL. 3=Patient will improve strength/tolerance for activity to enable patient to perform ADL's. OT Education/Plan Problem List/Assessment Assessment: Decreased Activ Tolerance, Impaired Self-Care Skills Discharge Recommendations Plan/Recommendations: Continue POC Treatment Plan/Plan of Care Patient would benefit from OT for education, treatment and training to promote independence in ADL's, mobility, safety and/or upper extremity function for ADL's. Plan of Care: ADL Retraining, Functional Mobility, Group Exercise/Act as Ind, UE Funct Exercise/Act Treatment Duration: Dec 20, 2020 Frequency: Modified Program (IRF) Estimated Hrs Per Day: 1 hour per day Rehab Potential: Fair Time/GCodes Start Time: 11:30 Stop Time: 12:00 Total Time Billed (hr/min): 30 Billed Treatment Time 1 visit-FA 2 (30 min) VIOLET BACA Dec 18, 2020 13:23
--- NOTE | 2020-12-18 13:24 | Occ Therapy Rehab Re-Cert ---
OT Re-Certification Form Plan of Care: ADL Retraining, Functional Mobility, Group Exercise/Act as Ind, UE Funct Exercise/Act LTGs to remain the same, extend timeframe to Jan 10, 2021. Treatment Duration: Jan 10, 2021 Frequency: Modified Program (IRF) Estimated Hrs Per Day: 1 hour per day Rehab Potential: Good OT Short Term Goals Short Term Goals Time Frame: Dec 11, 2020 Shower/bathe self: 4 Upper body dressin Lower body dressin OT Senior Product Integrity Engineer Goals Intermediate Goals Time Frame: Jan 10, 2021 Eating (QC): 6 Oral Hygiene (QC): 6 Toileting Hygiene (QC): 6 Shower/Bathe Self (QC): 6 Upper Body Dressing (QC): 6 Lower Body Dressing (QC): 6 On/Off Footwear (QC): 6 Additional Goals: 1-Demonstrate ADL Tasks, 2-Verbalize Understanding, 3- ImproveStrength/Leti 1=Demonstrate adherence to instructed precautions during ADL tasks. 2=Patient will verbalize/demonstrate understanding of assistive devices/modifications for ADL. 3=Patient will improve strength/tolerance for activity to enable patient to perform ADL's. BRENDA BLANCO OT Dec 18, 2020 13:24
--- NOTE | 2020-12-18 15:02 | Physical Therapy Daily Note ---
PT Daily Note-Current Subjective Pt sitting up in recliner upon arrival. Pt agrees to PT. Pain Location: No Pain Reported Mental Status Patient Orientation: Person, Place, Situation Attachments: Oxygen (2L) Transfers SCALE: Activities may be completed with or without assistive devices. 5-Kqolockdsq-uzbjarc completes the activity by him/herself with no assistance from a helper. 5-Set-up or Clean-up Assistance-helper sets up or cleans up; patient completes activity. [place] assists only prior to or following the activity. 4-Supervision or Touching Assistance-helper provides verbal cues and/or touching/steadying and/or contact guard assistance as patient completes activity. Assistance may be provided throughout the activity or intermittently. 3-Partial/Moderate Assistance-helper does LESS THAN HALF the effort. [place] lifts, holds or supports trunk or limbs, but provides less than half the effort. 2-Substantial/Maximal Assistance-helper does MORE THAN HALF the effort. [place] lifts or holds trunk or limbs and provides more than half the effort. 0-Yxfqnuaaw-qsagml does ALL the effort. Patient does none of the effort to complete the activity. Or, the assistance of 2 or more helpers is required for the patient to complete the activity. If activity was not attempted, code reason: 7-Patient Refused. 9-Not Applicable-not attempted and the patient did not perform the activity before the current illness, exacerbation or injury. 10-Not Attempted due to Environmental Limitations-(lack of equipment, weather restraints, etc.). 88-Not Attempted due to Medical Conditions or Safety Concerns. Sit to Lying (QC): 4 Sit to Stand (QC): 4 Toilet Transfer (QC): 4 Weight Bearing Full Weight Bearing Full Weight Bearing Wheelchair Training Does the Pt Use a Wheelchair?: Yes Wheel 50 ft with 2 turns (QC): 5 Wheel 150 ft (QC): 5 Type of Wheelchair: Manual Exercises NuStep Minutes: 12 NuStep Workload: 4 Treatments TF to standing, SPT to [facility] & propels in hallway. TF to NuStep using 12m at WL 4. TF back to [facility] and propels to room. TF back to Supine in bed with all needs met, call light in hand. Assessment Current Status: Good Progress Pt cristal. tx well but is fatigued by end of tx. PT Short Term Goals Short Term Goals Time Frame: Nov 27, 2020 Roll Left & Right: 3 Sit to lyin Lying to sitting on side of be: 3 Sit to stand: 3 Chair/psm-mq-rhyva transfer: 3 Walk 10 feet: 3 PT Skilled Nursing Goals Machinist Class B Goals PT Machinist Class B Goals Time Frame: Dec 11, 2020 Roll Left & Right (QC): 4 Sit to Lying (QC): 4 Lying-Sitting on Side/Bed(QC): 4 Sit to Stand (QC): 4 Chair/Pto-jk-Erogn Xfer(QC): 4 Toilet Transfer (QC): 4 Car Transfer (QC): 3 Does the Patient Walk: Yes Walk 10 feet (QC): 3 Walk 50ft with 2 Turns (QC): 3 Walk 150 ft (QC): 88 Walking 10ft on Uneven Surface: 3 1 Step (curb) (QC): 3 4 Steps (QC): 88 12 Steps (QC): 88 Picking up an Object (QC): 88 Wheel 50 feet with 2 turns (QC: 6 Wheel 150 feet: 6 PT Plan Problem List Problem List: Activity Tolerance Treatment/Plan Treatment Plan: Continue Plan of Care Treatment Plan: Bed Mobility, Education, Functional Activity Leti, Functional Strength, Group Therapy, Gait, Safety, Therapeutic Exercise, Transfers Treatment Duration: Dec 11, 2020 Frequency: Modified Program (IRF) Estimated Hrs Per Day: 1 hour per day Patient and/or Family Agrees t: Yes Safety Risks/Education Patient Education: Transfer Techniques, Correct Positioning, W/C Management, Safety Issues Teaching Recipient: Patient Teaching Methods: Discussion Response to Teaching: Verbalize Understanding Time/GCodes Time In: 1345 Time Out: 1415 Total Billed Treatment Time: 30 Total Billed Treatment 1, [facility] (10m) & EX (20m) KARYN BAKER HAND SIGN WRITER Dec 18, 2020 15:02
[2020-12-18 17:29] VITALS: BP 103/67
[2020-12-18] MEDS: MIRTAZAPINE 15 MG (REMERON) TAB PO SCH (21:09)
[2020-12-18] MEDS: ALPRAZolam 0.25 MG (XANAX) TAB PO PRN (21:10)
[2020-12-18] MEDS: MELATONIN 10 MG TABLET PO SCH (21:13)
[2020-12-19] MEDS: predniSONE 10 MG TAB PO SCH (05:56)
[2020-12-19 06:32] VITALS: BP 101/62
[2020-12-19] MEDS: PHENAZOPYRIDINE 100 MG (PYRIDIUM) TABLET PO SCH ×3 (07:35→20:14)
[2020-12-19] MEDS: SENNA W/DOCUSATE (SENOKOT S) TABLET PO SCH ×2 (07:35→20:15)
[2020-12-19] MEDS: LACTOBACILLUS ACIDOPHILUS (PROBIOTIC) CAPSULE PO SCH ×2 (07:36→20:15)
[2020-12-19] MEDS: CYANOCOBALAMIN 1,000 MCG (VITAMIN B-12) TABLET PO SCH (07:36)
[2020-12-19] MEDS: ROFLUMILAST 500 MCG TAB (DALIRESP) PO SCH (07:36)
[2020-12-19] MEDS: TAMSULOSIN 0.4 MG (FLOMAX) CAP PO SCH ×2 (07:36→20:15)
[2020-12-19] MEDS: FINASTERIDE (PROSCAR) 5 MG TAB PO SCH (07:37)
[2020-12-19] MEDS: meTOprolol TARTRATE 25 MG (LOPRESSOR) TABLET PO SCH ×2 (07:38→20:15)
[2020-12-19] MEDS: FOLIC ACID 1 MG TAB PO SCH (07:38)
[2020-12-19] MEDS: LORATADINE (CLARITIN) 10 MG TAB PO SCH (07:39)
[2020-12-19] MEDS: polyethylene glycoL POWDER 17 GM (MIRALAX) PACK PO SCH ×2 (07:39→20:15)
[2020-12-19] MEDS: MICONAZOLE 2% POWDER (DESENEX AF) 90 GM TOP SCH ×2 (07:39→20:20)
[2020-12-19] MEDS: MONTELUKAST 10 MG (SINGULAIR) TAB PO SCH (07:39)
[2020-12-19] MEDS: DOCUSATE SODIUM 100 MG (COLACE) CAP PO SCH ×2 (07:39→20:15)
[2020-12-19] MEDS: PANTOPRAZOLE 40 MG (PROTONIX) TAB PO SCH (07:39)
[2020-12-19] MEDS: NYSTATIN CREAM (MYCOSTATIN) 30 GM TUBE TP SCH ×3 (07:40→20:18)
--- NOTE | 2020-12-19 10:51 | PM&R Progress Note ---
Subjective HPI/CC On Admission Date Seen by Provider: Dec 19, 2020 Time Seen by Provider: 11:00 Subjective/Events-last exam 12/19/20: Valdes was discontinued and hes going to urinate every hour Updated Dr. Marsh Bowels moved yesterday Conferred with Dr. Marsh at the bedside with the patient 12/18/20: Bowels are moving today Passed a clot in the urine today Hemorrhoid cream will be provided Catheter was removed today per Dr. Marsh 12/17/20: Catheter will be taken out tomorrow Has not required continuous bladder irrigation Bowels are moving pretty well Overall participating in therapy and getting stronger 12/16/20: Hgb 9.4 Getting ready to stand with walker and help Valdes Catheter still in place, will remove on Wednesday per urology Checked meds and labs 12/15/20: Doing well BM after suppository Valdes in place no hematuria Bed lamar for BM 12/14/20: No longer taking Belladonna supp Urine cleared TBI DC Improved overall Holding OAC 12/13/20: Dr Marsh assessed him to be doing well Slowing the CBI O2 2L/min wbc 11 Belladonna supp help his pain 12/12/20: s/p TURP Belladonna supp for pain Monitor labs Holding OAC Levaquin 500mg daily Appreciate Dr Marsh 12/10/20: TURP scheduled for tomorrow morning Receiving two units of blood in preparation for the surgery since there is blood loss during the surgery Remains on two liters of oxygen Overall feels like he is doing really well 12/09/20: Bowels moved after suppository yesterday Holding anticoagulation for TURP Hgb 8.7 s/p five doses of Venofer Overall feels pretty good 12/08/20: MRSA of sputum still present TURP Wed Holding OAC now for surgery Standing a bit on his own with sit to stand 12/07/20: Second sputum done and pending BM incontinent Hold Eliquis tomorrow in prep for TURP 2L/min O2 maintained Sit to stand is helpful 12/06/20/: Steady improvement Dr Pritchett Wednesday for toenail care Second sputum pending to get out of isolation BM today 12/05/20: BM today 2L/min BP low so will monitor closely Improved transfers Updated patient and his who was on the phone 12/04/20: Pt slept very well again Coughing up a little bit more sputum that does show MRSA and ESBL, will remain in isolation Valdes is back in Will have TURP on Wednesday, holding Eliquis on Wednesday Incontinence of bowels is noted Overall extremely improved 12/03/20: Discontinued catheter yesterday by Dr. 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 Up in chair today BM++ Good outlook O2 at 3L/min Increase O2 during therapies 11/29/20: No new issues Midline was placed now flushes maintained Much improved status Down to 1 L of oxygen Increased oxygen requirement with exercise Still with Valdes catheter in place Upright in wheelchair today Dramatic improvement 11/28/20: Slept a bit better Midline for Venofer will be placed Much improved status BSC today Valdes cath replaced 11/27/20: Pt remains on 1 liter per minute of oxygen Appears to be much improved today Cystoscope done today showing large prostate Proscar along with Flomax was initiated Cath was done and obtained 1000cc of urine Nystatin cream and powder will be initiated Overall much improved 11/26/20: Pt did not sleep last night due to urinary frequency Had to do straight in and out cath x4 last night Dr. Marsh will be updated Blood in the urine 1 liter of O2 now but will need a higher level when he is working out CT chest and ABG reviewed 11/25/20: ABG is pending from not being drawn yet CT of the chest will be performed, Dr. Schrader has been updated Bowels moved yesterday 11/24/20: Venofer IV started and I explained why I started that for him Will check CT scan of chest tomorrow and consult Dr Schrader Labs and ABG ordered as well Still very tachypneic with conversation and at rest Monitoring BP 2L/min 11/23/20: No orthostasis today Worked with PT OT BM++ O2 maintained 11/22/20: Hgb 8.6 today Feels better since IVF 500cc yesterday and changed cardiac meds by Dr Cisneros [place] was born and he is thrilled about that Valdes cath still in place Fecal incontinence noted RT left him without O2 since he was good BRIEFLY on room air after Nebs for 1 hour and spot checked and he was at 85% and he was very short of breath just resting 11/21/20: Had episode of hypotension 76/40 with symptoms when got to edge of bed so laid back down, Cardiology notified and given 500cc of IVF Patient is on a waiver due to COVID and hypoxia for slow therapy and only 120 minutes per day Cardizem CD 120mg now after changed by Dr Cisneros ECHO done Stopped Lasix Valdes cath remains in place Review of Systems General: Fatigue, Malaise Genitourinary: Frequency, Hematuria Objective Exam Vital Signs Vital Signs Date Time Temp Pulse Resp B/P (MAP) Pulse Ox O2 Delivery O2 Flow Rate FiO2 12/19/20 20:15 93 Nasal Cannula 2.00 12/19/20 16:30 36.2 91 16 121/73 (89) Capillary Refill : Less Than 3 Seconds General Appearance: No Apparent Distress, WD/WN, Chronically ill, Thin HEENT: PERRL/EOMI, Normal ENT Inspection, Pharynx Normal Neck: Full Range of Motion, Normal Inspection, Non Tender, Supple, Carotid Bruit Respiratory: Chest Non Tender, Lungs Clear, No Respiratory Distress, Accessory Muscle Use, Decreased Breath Sounds Cardiovascular: Regular Rate, Rhythm, No Edema, No Gallop, No JVD, No Murmur, Normal Peripheral Pulses Gastrointestinal: Normal Bowel Sounds, No Organomegaly, No Pulsatile Mass, Non Tender, Soft Back: Normal Inspection, No CVA Tenderness, No Vertebral Tenderness Extremity: Normal Capillary Refill, Normal Inspection, Normal Range of Motion, Non Tender, No Calf Tenderness, No Pedal Edema Neurologic/Psychiatric: Alert, Oriented x3, No Motor/Sensory Deficits, Normal Mood/Affect, Motor Weakness (generalized 2/5 lower extremities, 3/5 upper extremities) Skin: Normal Color, Warm/Dry Lymphatic: No Adenopathy Results/Procedures Lab Patient resulted labs reviewed. FIM Transfers Therapy Code Descriptions/Definitions Functional [place] Measure: 0=Not Assessed/NA 4=Minimal Assistance 1=Total Assistance 5=Supervision or Setup 2=Maximal Assistance 6=Modified [place] 3=Moderate Assistance 7=Complete IndependenceSCALE: Activities may be completed with or without assistive devices. 4-Uvffwydefq-gkkqmuf completes the activity by him/herself with no assistance from a helper. 5-Set-up or Clean-up Assistance-helper sets up or cleans up; patient completes activity. [place] assists only prior to or following the activity. 4-Supervision or Touching Assistance-helper provides verbal cues and/or touching/steadying and/or contact guard assistance as patient completes activity. Assistance may be provided throughout the activity or intermittently. 3-Partial/Moderate Assistance-helper does LESS THAN HALF the effort. [place] lifts, holds or supports trunk or limbs, but provides less than half the effort. 2-Substantial/Maximal Assistance-helper does MORE THAN HALF the effort. [place] lifts or holds trunk or limbs and provides more than half the effort. 4-Uvgefhhki-hwtdcm does ALL the effort. Patient does none of the effort to complete the activity. Or, the assistance of 2 or more helpers is required for the patient to complete the activity. If activity was not attempted, code reason: 7-Patient Refused. 9-Not Applicable-not attempted and the patient did not perform the activity before the current illness, exacerbation or injury. 10-Not Attempted due to Environmental Limitations-(lack of equipment, weather restraints, etc.). 88-Not Attempted due to Medical Conditions or Safety Concerns. Roll Left to Right (QC): 6 Sit to Lying (QC): 4 Sit to Stand (QC): 4 Chair/Gap-sk-Yxkoq Xfer(QC): 3 Car Transfer (QC): 2 Gait Training Does the Patient Walk?: Yes Distance: 14', 14', 16' Walk 10 feet (QC): 4 Walk 50 ft with 2 Turns(QC): 88 Walk 150 ft (QC): 88 Walking 10ft/uneven surface-QC: 88 Gait Persons Needed: 1 Gait Assistive Device: FWW Wheelchair Training Does the Pt Use a Wheelchair?: Yes Wheel 50 ft with 2 turns (QC): 5 Wheel 150 ft (QC): 5 Type of Wheelchair: Manual Stair Training 1 Step (curb) (QC): 88 4 Steps (QC): 88 12 Steps (QC): 88 Balance Picking up an Object (QC): 88 ADL-Treatment Eating (QC): 6 Oral Hygiene (QC): 6 Bathing Location: L Arm, R Arm, L Upper Leg, R Upper Leg, L Lower Leg (including foot), R Lower Leg (including foot), Chest, Abdomen, Perineal Area Shower/Bathe Self (QC): 3 Upper Body Dressing (QC): 5 Lower Body Dressing (QC): 1 On/Off Footwear (QC): 5 Toileting Hygiene (QC): 1 Toilet Transfer (QC): 4 Assessment/Plan Assessment and Plan Assess & Plan/Chief Complaint Assessment: Myopathy COVID-19 PNA Urinary retention Valdes cath in place Bowel incontinence Hypoxia O2 dependent BPH Frail Advanced age Sputum colonized with MRSA and ESBL Plan: IRF protocol but 120 minutes per day to accommodate hypoxia at activity [place] meds Melatonin at night 11/21/20: s/o IVF Monitor hypotension and hypoxia Appreciate Dr Cisneros ECHO done Add Remeron for sleep with Melatonin 11/22/20: No possibility of weaning O2 for now with this patient so needs on 21/06 and will update RT Increase activity 11/23/20: Maintain O2 Nebs Monitor BP 11/24/20: Venofer Labs and ABG and CT chest in am Dr Schrader consultation Maintain O2 Very fragile lungs 11/25/20: CT chest ABG Dr Schrader consultation 11/26/20: Dr Schrader appreciated Dr Marsh appreciated 11/27/20: Dr Marsh appreciated Monitor O2 11/28/20: Valdes cath in place Midline Venofer 11/29/20: Midline flushes Venofer Monitor closely Dramatic improvement 11/30/20: Dramatic improvement continues Monitor closely Increase O2 with therapy 12/01/20: Bowel incontinence could complicate DC plans Monitor urinary retention closely 12/02/20: Manage B/B incontinence Improved status Labs good 12/03/20: Improved insomnia Continue treatment B/B incontinence 12/04/20: TURP next Wed Hold OAC as of Wednesday Conferred with Dr Marsh and patient 12/05/20: Improved transfers Monitor closely O2 Incontinence management 12/06/20: Steady improvement TURP Wed Hold OAC as of Wednesday morning 12/07/20: Await second sputum Monitor closely O2 BM 12/08/20: TURP Wed Hold OAC Monitor closely Labs in am 12/09/20: TURP Wednesday Monitor closely 12/10/20: TURP tomorrow Monitor closely 2 units of blood today 12/12/20: Belladonna suppositories Monitor labs Hold OAC 12/13/20: Dr Marsh appreciated Pain control O2 Monitor closely 12/14/20: Monitor hematuria Pain control from TURP Continue therapy 12/15/20: BM regimen Monitor valdes cath Hold OAC 12/16/20: Ambulating Participating with therapy Valdes out tomorrow? 12/17/20: DC catheter tomorrow Monitor pain O2 wean 12/18/20: Monitor closely Dramatic improvement DC catheter 12/19/20: Improved overall Walking well Hematuria improved Voiding spontaneously (1) Myopathy (2) COVID-19 (3) Hypoxia (4) Urinary retention (5) Valdes catheter in place (6) BPH (benign prostatic hyperplasia) (7) Bowel incontinence (8) Supplemental oxygen dependent (9) Advanced age (10) Frailty BARB COLLINS DO Dec 19, 2020 10:51
--- NOTE | 2020-12-19 11:51 | Progress Note - Urology ---
Progress Note-Urology Progress Notes/Assess & Plan Progress/Assessment & Plan VOIDING ON OWN. FEELS EMPTYING WELL. SOME FREQUENCY AND URGENCY EXPECTED. PATH BPH. URINE DARK. CHECK PVR SCAN. AND OBSERVE Final Diagnosis URINE RETENTION DENTON MA MD Dec 19, 2020 11:51
--- NOTE | 2020-12-19 12:07 | Physical Therapy Daily Note ---
PT Daily Note-Current Subjective Pt sitting up in recliner upon arrival. Pt agrees to PT. Pain Location: No Pain Reported Mental Status Patient Orientation: Person, Place, Time, Situation Attachments: Oxygen (2L) Transfers SCALE: Activities may be completed with or without assistive devices. 6-Kyufrornrj-eggvqlx completes the activity by him/herself with no assistance from a helper. 5-Set-up or Clean-up Assistance-helper sets up or cleans up; patient completes activity. [place] assists only prior to or following the activity. 4-Supervision or Touching Assistance-helper provides verbal cues and/or touching/steadying and/or contact guard assistance as patient completes activity. Assistance may be provided throughout the activity or intermittently. 3-Partial/Moderate Assistance-helper does LESS THAN HALF the effort. [place] lifts, holds or supports trunk or limbs, but provides less than half the effort. 2-Substantial/Maximal Assistance-helper does MORE THAN HALF the effort. [place] lifts or holds trunk or limbs and provides more than half the effort. 8-Wrrvrpafq-njmpzy does ALL the effort. Patient does none of the effort to complete the activity. Or, the assistance of 2 or more helpers is required for the patient to complete the activity. If activity was not attempted, code reason: 7-Patient Refused. 9-Not Applicable-not attempted and the patient did not perform the activity before the current illness, exacerbation or injury. 10-Not Attempted due to Environmental Limitations-(lack of equipment, weather restraints, etc.). 88-Not Attempted due to Medical Conditions or Safety Concerns. Sit to Lying (QC): 5 Sit to Stand (QC): 4 Weight Bearing Full Weight Bearing Full Weight Bearing Gait Training Does the Patient Walk?: Yes Distance: 8" x4, 18', 18' & 28' Walk 10 feet (QC): 4 Walk 50 ft with 2 Turns(QC): 4 Gait Persons Needed: 1 Gait Assistive Device: FWW 8' in //bars then rest of ambulation in hallway. Wheelchair Training Does the Pt Use a Wheelchair?: Yes Exercises Supine Ex: Ankle pumps, Quad Set, Glut sets, Heel Slides, Hip abd/add Supine Reps: 15 Treatments Co-treat with PT ([id number]), skills of 2 clinicians required for skilled instruction and care due to pt's debility, increased need of O2, decreased mobility and activity tolerance. PT focusing on standing, ambulation, w/c mobility, B LE strengthening and transfers while OT focusing on B UE placement during functional mobility, ADLs and B UE strengthening. 1st session([id number])Sit to stand, CGA then CGA for SPT with FWW from recliner to w/c. Pt propelled w/c to bathroom sink to complete own oral care and grooming. Pt then propelled w/c to therapy gym. Pt stood in parallel bars to work on dynamic standing balance and ambulation. Completed each 4x's, on without holding onto bars for 1 min. Pt then completed ambulation using FWW. See PT notes for ambulation progress. After session, pt lying in bed with call light/phone in reach. 2nd session([id number])Pt able to manipulate clothing and place urinal in supine lying in bed. Pt able to cleanse self after urinating, assist to empty urinal. Pt then completed B UE exercises with OT while completing B LE exercises with PT. Increasing strength and activity tolerance for daily functional tasks. After session, pt lying in bed with call light/phone in reach. All needs met in room. Assessment Current Status: Good Progress Pt continues to gain strength and activity tolerance. PT Short Term Goals Short Term Goals Time Frame: Nov 27, 2020 Roll Left & Right: 3 Sit to lyin Lying to sitting on side of be: 3 Sit to stand: 3 Chair/lcn-jj-drife transfer: 3 Walk 10 feet: 3 PT Long-Term Goals Therapist Asst Goals PT Long-Term Goals Time Frame: Dec 11, 2020 Roll Left & Right (QC): 4 Sit to Lying (QC): 4 Lying-Sitting on Side/Bed(QC): 4 Sit to Stand (QC): 4 Chair/Lhj-mv-Exony Xfer(QC): 4 Toilet Transfer (QC): 4 Car Transfer (QC): 3 Does the Patient Walk: Yes Walk 10 feet (QC): 3 Walk 50ft with 2 Turns (QC): 3 Walk 150 ft (QC): 88 Walking 10ft on Uneven Surface: 3 1 Step (curb) (QC): 3 4 Steps (QC): 88 12 Steps (QC): 88 Picking up an Object (QC): 88 Wheel 50 feet with 2 turns (QC: 6 Wheel 150 feet: 6 PT Plan Problem List Problem List: Activity Tolerance, Functional Strength, Gait Treatment/Plan Treatment Plan: Continue Plan of Care Treatment Plan: Bed Mobility, Education, Functional Activity Leti, Functional Strength, Group Therapy, Gait, Safety, Therapeutic Exercise, Transfers Treatment Duration: Dec 11, 2020 Frequency: Modified Program (IRF) Estimated Hrs Per Day: 1 hour per day Patient and/or Family Agrees t: Yes Safety Risks/Education Patient Education: Gait Training, Transfer Techniques, Correct Positioning, Safety Issues Teaching Recipient: Patient Teaching Methods: Discussion Response to Teaching: Verbalize Understanding Time/GCodes Time In: 1000 Time Out: 1400 Total Billed Treatment Time: 90 Total Billed Treatment [id number]: 1, WCH (15m), GT x2 (30m) & FA (15m) [id number]: 1, EX x2 (30m) KARYN BAKER PTA Dec 19, 2020 12:07
--- NOTE | 2020-12-19 13:00 | Occupational Ther Daily Note ---
OT Current Status-Daily Note Subjective Pt alert, sitting up in recliner. Pt agrees to therapy. No c/o pain at this time. Mental Status/Objective Patient Orientation: Person, Place, Time, Situation ADL-Treatment Co-treat with PT ([id number]), skills of 2 clinicians required for skilled instruction and care due to pt's debility, increased need of O2, decreased mobility and activity tolerance. PT focusing on standing, ambulation, w/c mobility, B LE strengthening and transfers while OT focusing on B UE placement during functional mobility, ADLs and B UE strengthening. 1st session([id number])Sit to stand, CGA then CGA for SPT with FWW from recliner to w/c. Pt propelled w/c to bathroom sink to complete own oral care and grooming. Pt then propelled w/c to therapy gym. Pt stood in parallel bars to work on dynamic standing balance and ambulation. Completed each 4x's, on without holding onto bars for 1 min. Pt then completed ambulation using FWW. See PT notes for ambulation progress. After session, pt lying in bed with call light/phone in reach. 2nd session([id number])Pt able to manipulate clothing and place urinal in supine lying in bed. Pt able to cleanse self after urinating, assist to empty urinal. Pt then completed B UE exercises with OT while completing B LE exercises with PT. Increasing strength and activity tolerance for daily functional tasks. After session, pt lying in bed with call light/phone in reach. All needs met in room. Therapy Code Descriptions/Definitions Functional [place] Measure: 0=Not Assessed/NA 4=Minimal Assistance 1=Total Assistance 5=Supervision or Setup 2=Maximal Assistance 6=Modified [place] 3=Moderate Assistance 7=Complete IndependenceSCALE: Activities may be completed with or without assistive devices. 7-Sjjuvfhycb-utrmyty completes the activity by him/herself with no assistance from a helper. 5-Set-up or Clean-up Assistance-helper sets up or cleans up; patient completes activity. [place] assists only prior to or following the activity. 4-Supervision or Touching Assistance-helper provides verbal cues and/or touching/steadying and/or contact guard assistance as patient completes activity. Assistance may be provided throughout the activity or intermittently. 3-Partial/Moderate Assistance-helper does LESS THAN HALF the effort. [place] lifts, holds or supports trunk or limbs, but provides less than half the effort. 2-Substantial/Maximal Assistance-helper does MORE THAN HALF the effort. [place] lifts or holds trunk or limbs and provides more than half the effort. 4-Wzhtxlpmo-pikgbc does ALL the effort. Patient does none of the effort to complete the activity. Or, the assistance of 2 or more helpers is required for the patient to complete the activity. If activity was not attempted, code reason: 7-Patient Refused. 9-Not Applicable-not attempted and the patient did not perform the activity before the current illness, exacerbation or injury. 10-Not Attempted due to Environmental Limitations-(lack of equipment, weather restraints, etc.). 88-Not Attempted due to Medical Conditions or Safety Concerns. Oral Hygiene (QC): 6 Lower Body Dressing (QC): 1 (Pt able to thread pants over feet then assist to stand and assist to hike pants over hips.) OT Short Term Goals Short Term Goals Time Frame: Dec 11, 2020 Shower/bathe self: 4 Upper body dressin Lower body dressin OT Retirement Goals Retirement Goals Time Frame: Jan 10, 2021 Eating (QC): 6 Oral Hygiene (QC): 6 Toileting Hygiene (QC): 6 Shower/Bathe Self (QC): 6 Upper Body Dressing (QC): 6 Lower Body Dressing (QC): 6 On/Off Footwear (QC): 6 Additional Goals: 1-Demonstrate ADL Tasks, 2-Verbalize Understanding, 3- ImproveStrength/Leti 1=Demonstrate adherence to instructed precautions during ADL tasks. 2=Patient will verbalize/demonstrate understanding of assistive devices/modifications for ADL. 3=Patient will improve strength/tolerance for activity to enable patient to perform ADL's. OT Education/Plan Problem List/Assessment Assessment: Decreased Activ Tolerance, Decreased UE Strength, Impaired Funct Balance, Impaired I ADL's Discharge Recommendations Plan/Recommendations: Continue POC Treatment Plan/Plan of Care Patient would benefit from OT for education, treatment and training to promote independence in ADL's, mobility, safety and/or upper extremity function for ADL's. Plan of Care: ADL Retraining, Functional Mobility, Group Exercise/Act as Ind, UE Funct Exercise/Act Treatment Duration: Dec 20, 2020 Frequency: Modified Program (IRF) Estimated Hrs Per Day: 1 hour per day Rehab Potential: Good Time/GCodes Start Time: 10:00 (1335) Stop Time: 11:00 (1405) Total Time Billed (hr/min): 90 Billed Treatment Time 1 visit-ADL 1 (15 min) FA 3 (45 min), 1 visit-EX 1 (15 min) FA 1 (15 min) Co- treat with PT [id number] VIOLET BACA Dec 19, 2020 13:00
--- NOTE | 2020-12-19 13:07 | NUR ---
CM/SS PATIENT CARE CONFERENCE Attempted visit with patient yesterday afternoon and he was sleeping soundly. Spoke with patient's spouse, Opal Zelaya, and she favored team recommendation for a family education and review of patient performance. She selected Tuesday, December 24, 999; team and communication board updated. Visited with patient today to review Summary, he is in agreement to reassessment in one week and is especially excited to see his as well. He appears to be doing better and EMR reflects he is making gains. Will visit with patient and spouse after education session to confirm more about home environment and functioning as well as assistive devices needed. Addendum: 12/19/20 at 1326 by NOEMY SUAREZ Patient's [place]: [place] [address]
[2020-12-19] MEDS: ADVAIR HFA 115/21 MCG INHALER 8 GM IH SCH ×2 (14:47→19:27)
[2020-12-19] MEDS: RT-ALBUTEROL/IPRATROPIUM 3 ML (DUONEB) VIAL IH SCH ×2 (14:47→19:27)
[2020-12-19 16:30] VITALS: BP 121/73
[2020-12-19] MEDS: MELATONIN 10 MG TABLET PO SCH (20:15)
[2020-12-19] MEDS: MIRTAZAPINE 15 MG (REMERON) TAB PO SCH (20:15)
[2020-12-20 05:41] VITALS: BP 112/65
[2020-12-20] MEDS: predniSONE 10 MG TAB PO SCH (06:37)
--- NOTE | 2020-12-20 08:54 | Occupational Ther Daily Note ---
OT Current Status-Daily Note Subjective Pt alert, sitting in recliner. Pt agrees to therapy. No c/o pain. Mental Status/Objective Patient Orientation: Person, Place, Time, Situation Attachments: Oxygen (2L) ADL-Treatment Pt agrees to shower. Pt transferred with CGA using FWW to [facility], assist to manipulate brief. Pt then transferred to rolling shower chair with cutout for shower. Pt sat at sink to complete oral care independently. Pt completed shower using long handle sponge, grabbar, hand held shower independently. Pt transferred to recliner to complete dressing. Upper body completed by self after set up. Pt threaded feet into pant legs independently after set up and required lengthy recovery breaks after each garment. CGA in standing while pt hiked pants over hips. Pt able to don/doff footwear sitting after set up. Pt took increased time to complete all tasks due to SOA and lengthy recovery, O2 levels set to 4L during exertion. Pt then ambulated to bed using FWW and min A. Pt's bed mobility independent using bed rails. After session, pt lying in bed with call light/phone in reach. All needs met in room. Therapy Code Descriptions/Definitions Functional [place] Measure: 0=Not Assessed/NA 4=Minimal Assistance 1=Total Assistance 5=Supervision or Setup 2=Maximal Assistance 6=Modified [place] 3=Moderate Assistance 7=Complete IndependenceSCALE: Activities may be completed with or without assistive devices. 8-Gqlrguabeg-uepcnqi completes the activity by him/herself with no assistance from a helper. 5-Set-up or Clean-up Assistance-helper sets up or cleans up; patient completes activity. [place] assists only prior to or following the activity. 4-Supervision or Touching Assistance-helper provides verbal cues and/or touching/steadying and/or contact guard assistance as patient completes a ctivity. Assistance may be provided throughout the activity or intermittently. 3-Partial/Moderate Assistance-helper does LESS THAN HALF the effort. [place] lifts, holds or supports trunk or limbs, but provides less than half the effort. 2-Substantial/Maximal Assistance-helper does MORE THAN HALF the effort. [place] lifts or holds trunk or limbs and provides more than half the effort. 7-Krddofgds-myjlfu does ALL the effort. Patient does none of the effort to complete the activity. Or, the assistance of 2 or more helpers is required for the patient to complete the activity. If activity was not attempted, code reason: 7-Patient Refused. 9-Not Applicable-not attempted and the patient did not perform the activity before the current illness, exacerbation or injury. 10-Not Attempted due to Environmental Limitations-(lack of equipment, weather restraints, etc.). 88-Not Attempted due to Medical Conditions or Safety Concerns. Oral Hygiene (QC): 6 Shower/Bathe Self (QC): 6 Upper Body Dressing (QC): 5 Lower Body Dressing (QC): 4 On/Off Footwear: 5 Toileting Hygiene (QC): 3 Toilet Transfer (QC): 4 OT Short Term Goals Short Term Goals Time Frame: Dec 11, 2020 Shower/bathe self: 4 Upper body dressin Lower body dressin OT Rn Acute Goals Rn Acute Goals Time Frame: Jan 10, 2021 Eating (QC): 6 Oral Hygiene (QC): 6 Toileting Hygiene (QC): 6 Shower/Bathe Self (QC): 6 Upper Body Dressing (QC): 6 Lower Body Dressing (QC): 6 On/Off Footwear (QC): 6 Additional Goals: 1-Demonstrate ADL Tasks, 2-Verbalize Understanding, 3-ImproveStrength/Leti 1=Demonstrate adherence to instructed precautions during ADL tasks. 2=Patient will verbalize/demonstrate understanding of assistive devices/modifications for ADL. 3=Patient will improve strength/tolerance for activity to enable patient to perform ADL's. OT Education/Plan Problem List/Assessment Assessment: Decreased Activ Tolerance, Decreased UE Strength, Impaired Funct Balance, Impaired Self-Care Skills Discharge Recommendations Plan/Recommendations: Continue POC Treatment Plan/Plan of Care Patient would benefit from OT for education, treatment and training to promote independence in ADL's, mobility, safety and/or upper extremity function for ADL's. Plan of Care: ADL Retraining, Functional Mobility, Group Exercise/Act as Ind, UE Funct Exercise/Act Treatment Duration: Dec 20, 2020 Frequency: Modified Program (IRF) Estimated Hrs Per Day: 1 hour per day Rehab Potential: Good Time/GCodes Start Time: 07:30 Stop Time: 09:00 Total Time Billed (hr/min): 90 Billed Treatment Time 1 visit-ADL 6 (90 min) VIOLET BACA Dec 20, 2020 08:54
[2020-12-20] MEDS: TAMSULOSIN 0.4 MG (FLOMAX) CAP PO SCH ×2 (09:59→21:21)
[2020-12-20] MEDS: LACTOBACILLUS ACIDOPHILUS (PROBIOTIC) CAPSULE PO SCH ×2 (10:00→21:14)
[2020-12-20] MEDS: meTOprolol TARTRATE 25 MG (LOPRESSOR) TABLET PO SCH ×2 (10:00→21:15)
[2020-12-20] MEDS: PANTOPRAZOLE 40 MG (PROTONIX) TAB PO SCH (10:00)
[2020-12-20] MEDS: PHENAZOPYRIDINE 100 MG (PYRIDIUM) TABLET PO SCH ×3 (10:01→21:14)
[2020-12-20] MEDS: DOCUSATE SODIUM 100 MG (COLACE) CAP PO SCH ×2 (10:01→21:15)
[2020-12-20] MEDS: FOLIC ACID 1 MG TAB PO SCH (10:01)
[2020-12-20] MEDS: MONTELUKAST 10 MG (SINGULAIR) TAB PO SCH (10:01)
[2020-12-20] MEDS: SENNA W/DOCUSATE (SENOKOT S) TABLET PO SCH ×2 (10:01→21:15)
[2020-12-20] MEDS: LORATADINE (CLARITIN) 10 MG TAB PO SCH (10:01)
[2020-12-20] MEDS: ROFLUMILAST 500 MCG TAB (DALIRESP) PO SCH (10:01)
[2020-12-20] MEDS: CYANOCOBALAMIN 1,000 MCG (VITAMIN B-12) TABLET PO SCH (10:01)
[2020-12-20] MEDS: FINASTERIDE (PROSCAR) 5 MG TAB PO SCH (10:01)
[2020-12-20] MEDS: polyethylene glycoL POWDER 17 GM (MIRALAX) PACK PO SCH ×2 (10:01→21:34)
[2020-12-20] MEDS: MICONAZOLE 2% POWDER (DESENEX AF) 90 GM TOP SCH ×2 (10:07→21:21)
[2020-12-20] MEDS: NYSTATIN CREAM (MYCOSTATIN) 30 GM TUBE TP SCH ×3 (10:07→21:21)
--- NOTE | 2020-12-20 10:30 | PM&R Progress Note ---
Subjective HPI/CC On Admission Date Seen by Provider: Dec 20, 2020 Time Seen by Provider: 10:30 Subjective/Events-last exam 12/20/20: Much improved ambulation Less hematuria Dysuria still BM+ Talked about COVID vaccine 12/19/20: Valdes was discontinued and hes going to urinate every hour Updated Dr. Marsh Bowels moved yesterday Conferred with Dr. Marsh at the bedside with the patient 12/18/20: Bowels are moving today Passed a clot in the urine today Hemorrhoid cream will be provided Catheter was removed today per Dr. Marsh 12/17/20: Catheter will be taken out tomorrow Has not required continuous bladder irrigation Bowels are moving pretty well Overall participating in therapy and getting stronger 12/16/20: Hgb 9.4 Getting ready to stand with walker and help Valdes Catheter still in place, will remove on Wednesday per urology Checked meds and labs 12/15/20: Doing well BM after suppository Valdes in place no hematuria Bed lamar for BM 12/14/20: No longer taking Belladonna supp Urine cleared TBI DC Improved overall Holding OAC 12/13/20: Dr Marsh assessed him to be doing well Slowing the CBI O2 2L/min wbc 11 Belladonna supp help his pain 12/12/20: s/p TURP Belladonna supp for pain Monitor labs Holding OAC Levaquin 500mg daily Appreciate Dr Marsh 12/10/20: TURP scheduled for tomorrow morning Receiving two units of blood in preparation for the surgery since there is blood loss during the surgery Remains on two liters of oxygen Overall feels like he is doing really well 12/09/20: Bowels moved after suppository yesterday Holding anticoagulation for TURP Hgb 8.7 s/p five doses of Venofer Overall feels pretty good 12/08/20: MRSA of sputum still present TURP Wed Holding OAC now for surgery Standing a bit on his own with sit to stand 12/07/20: Second sputum done and pending BM incontinent Hold Eliquis tomorrow in prep for TURP 2L/min O2 maintained Sit to stand is helpful 12/06/20/: Steady improvement Dr Pritchett Wednesday for toenail care Second sputum pending to get out of isolation BM today 12/05/20: BM today 2L/min BP low so will monitor closely Improved transfers Updated patient and his who was on the phone 12/04/20: Pt slept very well again Coughing up a little bit more sputum that does show MRSA and ESBL, will remain in isolation Valdes is back in Will have TURP on Wednesday, holding Eliquis on Wednesday Incontinence of bowels is noted Overall extremely improved 12/03/20: Discontinued catheter yesterday by Dr. 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 Up in chair today BM++ Good outlook O2 at 3L/min Increase O2 during therapies 11/29/20: No new issues Midline was placed now flushes maintained Much improved status Down to 1 L of oxygen Increased oxygen requirement with exercise Still with Valdes catheter in place Upright in wheelchair today Dramatic improvement 11/28/20: Slept a bit better Midline for Venofer will be placed Much improved status BSC today Valdes cath replaced 11/27/20: Pt remains on 1 liter per minute of oxygen Appears to be much improved today Cystoscope done today showing large prostate Proscar along with Flomax was initiated Cath was done and obtained 1000cc of urine Nystatin cream and powder will be initiated Overall much improved 11/26/20: Pt did not sleep last night due to urinary frequency Had to do straight in and out cath x4 last night Dr. Marsh will be updated Blood in the urine 1 liter of O2 now but will need a higher level when he is working out CT chest and ABG reviewed 11/25/20: ABG is pending from not being drawn yet CT of the chest will be performed, Dr. Schrader has been updated Bowels moved yesterday 11/24/20: Venofer IV started and I explained why I started that for him Will check CT scan of chest tomorrow and consult Dr Schrader Labs and ABG ordered as well Still very tachypneic with conversation and at rest Monitoring BP 2L/min 11/23/20: No orthostasis today Worked with PT OT BM++ O2 maintained 11/22/20: Hgb 8.6 today Feels better since IVF 500cc yesterday and changed cardiac meds by Dr Cisneros Justice guevara was born and he is thrilled about that Valdes cath still in place Fecal incontinence noted RT left him without O2 since he was good BRIEFLY on room air after Nebs for 1 hour and spot checked and he was at 85% and he was very short of breath just res ting 11/21/20: Had episode of hypotension 76/40 with symptoms when got to edge of bed so laid back down, Cardiology notified and given 500cc of IVF Patient is on a waiver due to COVID and hypoxia for slow therapy and only 120 minutes per day Cardizem CD 120mg now after changed by Dr Cisneros ECHO done Stopped Lasix Valdes cath remains in place Review of Systems General: Fatigue, Malaise Pulmonary: Dyspnea Neurological: Weakness Objective Exam Vital Signs Vital Signs Date Time Temp Pulse Resp B/P (MAP) Pulse Ox O2 Delivery O2 Flow Rate FiO2 12/21/20 05:01 36.5 83 18 115/67 (83) 94 Room Air 12/20/20 20:00 2.00 Capillary Refill : Less Than 3 Seconds General Appearance: No Apparent Distress, WD/WN, Chronically ill, Thin HEENT: PERRL/EOMI, Normal ENT Inspection, Pharynx Normal Neck: Full Range of Motion, Normal Inspection, Non Tender, Supple, Carotid Bruit Respiratory: Chest Non Tender, Lungs Clear, No Respiratory Distress, Accessory Muscle Use, Decreased Breath Sounds Cardiovascular: Regular Rate, Rhythm, No Edema, No Gallop, No JVD, No Murmur, Normal Peripheral Pulses Gastrointestinal: Normal Bowel Sounds, No Organomegaly, No Pulsatile Mass, Non Tender, Soft Back: Normal Inspection, No CVA Tenderness, No Vertebral Tenderness Extremity: Normal Capillary Refill, Normal Inspection, Normal Range of Motion, Non Tender, No Calf Tenderness, No Pedal Edema Neurologic/Psychiatric: Alert, Oriented x3, No Motor/Sensory Deficits, Normal Mood/Affect, Motor Weakness (generalized 2/5 lower extremities, 3/5 upper extremities) Skin: Normal Color, Warm/Dry Lymphatic: No Adenopathy Results/Procedures Lab Patient resulted labs reviewed. FIM Transfers Therapy Code Descriptions/Definitions Functional [place] Measure: 0=Not Assessed/NA 4=Minimal Assistance 1=Total Assistance 5=Supervision or Setup 2=Maximal Assistance 6=Modified [place] 3=Moderate Assistance 7=Complete IndependenceSCALE: Activities may be completed with or without assistive devices. 1-Ntuftkmwem-nikwfny completes the activity by him/herself with no assistance from a helper. 5-Set-up or Clean-up Assistance-helper sets up or cleans up; patient completes activity. [place] assists only prior to or following the activity. 4-Supervision or Touching Assistance-helper provides verbal cues and/or touching/steadying and/or contact guard assistance as patient completes activity. Assistance may be provided throughout the activity or intermittently. 3-Partial/Moderate Assistance-helper does LESS THAN HALF the effort. [place] lifts, holds or supports trunk or limbs, but provides less than half the effort. 2-Substantial/Maximal Assistance-helper does MORE THAN HALF the effort. [place] lifts or holds trunk or limbs and provides more than half the effort. 9-Ngvromyqz-lywrzq does ALL the effort. Patient does none of the effort to complete the activity. Or, the assistance of 2 or more helpers is required for the patient to complete the activity. If activity was not attempted, code reason: 7-Patient Refused. 9-Not Applicable-not attempted and the patient did not perform the activity before the current illness, exacerbation or injury. 10-Not Attempted due to Environmental Limitations-(lack of equipment, weather restraints, etc.). 88-Not Attempted due to Medical Conditions or Safety Concerns. Roll Left to Right (QC): 6 Sit to Lying (QC): 5 Sit to Stand (QC): 4 Chair/Mdh-om-Iohil Xfer(QC): 3 Car Transfer (QC): 2 Gait Training Does the Patient Walk?: Yes Distance: 8" x4, 18', 18' & 28' Walk 10 feet (QC): 4 Walk 50 ft with 2 Turns(QC): 4 Walk 150 ft (QC): 88 Walking 10ft/uneven surface-QC: 88 Gait Persons Needed: 1 Gait Assistive Device: FWW Wheelchair Training Does the Pt Use a Wheelchair?: Yes Wheel 50 ft with 2 turns (QC): 5 Wheel 150 ft (QC): 5 Type of Wheelchair: Manual Stair Training 1 Step (curb) (QC): 88 4 Steps (QC): 88 12 Steps (QC): 88 Balance Picking up an Object (QC): 88 ADL-Treatment Eating (QC): 6 Oral Hygiene (QC): 6 Bathing Location: L Arm, R Arm, L Upper Leg, R Upper Leg, L Lower Leg (including foot), R Lower Leg (including foot), Chest, Abdomen, Perineal Area Shower/Bathe Self (QC): 3 Upper Body Dressing (QC): 5 Lower Body Dressing (QC): 1 (Pt able to thread pants over feet then assist to stand and assist to hike pants over hips.) On/Off Footwear (QC): 5 Toileting Hygiene (QC): 1 Toilet Transfer (QC): 4 Assessment/Plan Assessment and Plan Assess & Plan/Chief Complaint Assessment: Myopathy COVID-19 PNA Urinary retention Valdes cath in place Bowel incontinence Hypoxia O2 dependent BPH Frail Advanced age Sputum colonized with MRSA and ESBL Plan: IRF protocol but 120 minutes per day to accommodate hypoxia at activity [place] meds Melatonin at night 11/21/20: s/o IVF Monitor hypotension and hypoxia Appreciate Dr Cisneros ECHO done Add Remeron for sleep with Melatonin 11/22/20: No possibility of weaning O2 for now with this patient so needs on 21/06 and will update RT Increase activity 11/23/20: Maintain O2 Nebs Monitor BP 11/24/20: Venofer Labs and ABG and CT chest in am Dr Schrader consultation Maintain O2 Very fragile lungs 11/25/20: CT chest ABG Dr Schrader consultation 11/26/20: Dr Schrader appreciated Dr Marsh appreciated 11/27/20: Dr Marsh appreciated Monitor O2 11/28/20: Valdes cath in place Midline Venofer 11/29/20: Midline flushes Venofer Monitor closely Dramatic improvement 11/30/20: Dramatic improvement continues Monitor closely Increase O2 with therapy 12/01/20: Bowel incontinence could complicate DC plans Monitor urinary retention closely 12/02/20: Manage B/B incontinence Improved status Labs good 12/03/20: Improved insomnia Continue treatment B/B incontinence 12/04/20: TURP next Wed Hold OAC as of Wednesday Conferred with Dr Marsh and patient 12/05/20: Improved transfers Monitor closely O2 Incontinence management 12/06/20: Steady improvement TURP Wed Hold OAC as of Wednesday12/07/20: Await second sputum Monitor closely O2 BM 12/08/20: TURP Wed Hold OAC Monitor closely Labs in am 12/09/20: TURP Wednesday Monitor closely 12/10/20: TURP tomorrow Monitor closely 2 units of blood today 12/12/20: Belladonna suppositories Monitor labs Hold OAC 12/13/20: Dr Marsh appreciated Pain control O2 Monitor closely 12/14/20: Monitor hematuria Pain control from TURP Continue therapy 12/15/20: BM regimen Monitor valdes cath Hold OAC 12/16/20: Ambulating Participating with therapy Valdes out tomorrow? 12/17/20: DC catheter tomorrow Monitor pain O2 wean 12/18/20: Monitor closely Dramatic improvement DC catheter 12/19/20: Improved overall Walking well Hematuria improved Voiding spontaneously 12/20/20: COVID vaccine discussed Monitor pain with urination Ambulating well (1) Myopathy (2) COVID-19 (3) Hypoxia (4) Urinary retention (5) Valdes catheter in place (6) BPH (benign prostatic hyperplasia) (7) Bowel incontinence (8) Supplemental oxygen dependent (9) Advanced age (10) Frailty BARB COLLINS DO Dec 20, 2020 10:29
--- NOTE | 2020-12-20 11:07 | Physical Therapy Daily Note ---
PT Daily Note-Current Subjective Pt. agrees to Rx, states he is making progress but it s slow. Pt. teary eyed today stating the scheduled visit for his to come is so needed. Has not seen her for 3 mo Pain Location: No Pain Reported Mental Status Patient Orientation: Normal For Age Attachments: Other-See Comments (mask while out of room) Transfers SCALE: Activities may be completed with or without assistive devices. 6-Cieteoajlp-fddhrzb completes the activity by him/herself with no assistance from a helper. 5-Set-up or Clean-up Assistance-helper sets up or cleans up; patient completes activity. [place] assists only prior to or following the activity. 4-Supervision or Touching Assistance-helper provides verbal cues and/or touching/steadying and/or contact guard assistance as patient completes activity. Assistance may be provided throughout the activity or intermittently. 3-Partial/Moderate Assistance-helper does LESS THAN HALF the effort. [place] lifts, holds or supports trunk or limbs, but provides less than half the effort. 2-Substantial/Maximal Assistance-helper does MORE THAN HALF the effort. [place] lifts or holds trunk or limbs and provides more than half the effort. 5-Xymscijqg-ktkzmn does ALL the effort. Patient does none of the effort to complete the activity. Or, the assistance of 2 or more helpers is required for the patient to complete the activity. If activity was not attempted, code reason: 7-Patient Refused. 9-Not Applicable-not attempted and the patient did not perform the activity before the current illness, exacerbation or injury. 10-Not Attempted due to Environmental Limitations-(lack of equipment, weather restraints, etc.). 88-Not Attempted due to Medical Conditions or Safety Concerns. Roll Left & Right (QC): 6 Sit to Lying (QC): 6 Lying to Sitting/Side of Bed(Q: 6 Sit to Stand (QC): 4 Chair/Can-yl-Vjyed Xfer(QC): 4 Toilet Transfer (QC): 4 Weight Bearing Full Weight Bearing Full Weight Bearing Gait Training Does the Patient Walk?: Yes Walk 10 feet (QC): 4 Walk 50 ft with 2 Turns(QC): 4 Gait Persons Needed: 1 Gait Assistive Device: FWW 15ft x 2, 50ft x 1, 20ft x 1, w/c close behind, needed cues to broaden [place] and strike heel, pt. taking small steps but gives good effort and is progressing slowly Wheelchair Training Does the Pt Use a Wheelchair?: Yes Wheel 50 ft with 2 turns (QC): 5 Type of Wheelchair: Manual Exercises Supine Ex: Bridging, Ankle pumps, Quad Set, Rolling, Glut sets, Heel Slides, Short Arc Quads, Scooting, Straight leg raise, Hip abd/add Supine Reps: 15 Seated Therapy Exercises: Ankle pumps, Sit to stand, Long arc quads, Hip flexion Seated Reps: 15 Assessment Current Status: Good Progress PT Short Term Goals Short Term Goals Time Frame: Nov 27, 2020 Roll Left & Right: 3 Sit to lyin Lying to sitting on side of be: 3 Sit to stand: 3 Chair/hkx-xs-mmlaz transfer: 3 Walk 10 feet: 3 PT Workers Compensation Analyst Goals Workers Compensation Analyst Goals PT Group Home Goals Time Frame: Dec 11, 2020 Roll Left & Right (QC): 4 Sit to Lying (QC): 4 Lying-Sitting on Side/Bed(QC): 4 Sit to Stand (QC): 4 Chair/Wnv-fx-Prvvl Xfer(QC): 4 Toilet Transfer (QC): 4 Car Transfer (QC): 3 Does the Patient Walk: Yes Walk 10 feet (QC): 3 Walk 50ft with 2 Turns (QC): 3 Walk 150 ft (QC): 88 Walking 10ft on Uneven Surface: 3 1 Step (curb) (QC): 3 4 Steps (QC): 88 12 Steps (QC): 88 Picking up an Object (QC): 88 Wheel 50 feet with 2 turns (QC: 6 Wheel 150 feet: 6 PT Plan Treatment/Plan Treatment Plan: Continue Plan of Care Treatment Plan: Bed Mobility, Education, Functional Activity Leti, Functional Strength, Group Therapy, Gait, Safety, Therapeutic Exercise, Transfers Treatment Duration: Dec 11, 2020 Frequency: Modified Program (IRF) Estimated Hrs Per Day: 1 hour per day Patient and/or Family Agrees t: Yes Safety Risks/Education Patient Education: Gait Training, Transfer Techniques, Correct Positioning, W/C Management, Disease Process, Safety Issues Teaching Recipient: Patient Teaching Methods: Demonstration, Discussion Response to Teaching: Verbalize Understanding, Return Demonstration, Reinforcement Needed Time/GCodes Time In: 1015 Time Out: 1100 Total Billed Treatment Time: 45 Total Billed Treatment 1,GT15m,EX15m,FA15m ESSENCE ARRIAZA MAINFRAME APPLICATIONS DEVELOPER Dec 20, 2020 11:07
--- NOTE | 2020-12-20 13:20 | NUR ---
POST VOID RESIDUAL WAS 29ML FOR THIS PT. LEFT VOICE MAIL FOR DR. CHAVEZ PER HIS REQUEST TO INFORM HIM.
--- NOTE | 2020-12-20 13:37 | Physical Therapy Daily Note ---
PT Daily Note-Current Subjective Pt. wants to use BSC then go to bed for some LE exercise Pain Location: No Pain Reported Mental Status Patient Orientation: Normal For Age Attachments: Oxygen Transfers SCALE: Activities may be completed with or without assistive devices. 3-Qrkhlbdbqd-xndvckd completes the activity by him/herself with no assistance from a helper. 5-Set-up or Clean-up Assistance-helper sets up or cleans up; patient completes activity. [place] assists only prior to or following the activity. 4-Supervision or Touching Assistance-helper provides verbal cues and/or touching /steadying and/or contact guard assistance as patient completes activity. Assistance may be provided throughout the activity or intermittently. 3-Partial/Moderate Assistance-helper does LESS THAN HALF the effort. [place] lifts, holds or supports trunk or limbs, but provides less than half the effort. 2-Substantial/Maximal Assistance-helper does MORE THAN HALF the effort. [place] lifts or holds trunk or limbs and provides more than half the effort. 4-Sumfyuyum-izkcod does ALL the effort. Patient does none of the effort to complete the activity. Or, the assistance of 2 or more helpers is required for the patient to complete the activity. If activity was not attempted, code reason: 7-Patient Refused. 9-Not Applicable-not attempted and the patient did not perform the activity before the current illness, exacerbation or injury. 10-Not Attempted due to Environmental Limitations-(lack of equipment, weather restraints, etc.). 88-Not Attempted due to Medical Conditions or Safety Concerns. sit to stand and sit to supine all CGA to SBA. Weight Bearing Full Weight Bearing Full Weight Bearing Gait Training Gait Assistive Device: FWW 6-8 ft chair to bed CGA and instruction in gait with extended O2 tubing Exercises Supine Ex: Bridging, Ankle pumps, Quad Set, Rolling, Glut sets, Heel Slides, Scooting, Straight leg raise, Hip abd/add Supine Reps: 15 Treatments sit to stand and TRFs SPT chair to BSC to bed with FWW with a few steps between. review of HEP Assessment Current Status: Good Progress PT Short Term Goals Short Term Goals Time Frame: Nov 27, 2020 Roll Left & Right: 3 Sit to lyin Lying to sitting on side of be: 3 Sit to stand: 3 Chair/leu-vr-umqkb transfer: 3 Walk 10 feet: 3 PT Health And Wellness Coach Goals Alf Goals PT Health And Wellness Coach Goals Time Frame: Dec 11, 2020 Roll Left & Right (QC): 4 Sit to Lying (QC): 4 Lying-Sitting on Side/Bed(QC): 4 Sit to Stand (QC): 4 Chair/Cvt-jo-Hqaku Xfer(QC): 4 Toilet Transfer (QC): 4 Car Transfer (QC): 3 Does the Patient Walk: Yes Walk 10 feet (QC): 3 Walk 50ft with 2 Turns (QC): 3 Walk 150 ft (QC): 88 Walking 10ft on Uneven Surface: 3 1 Step (curb) (QC): 3 4 Steps (QC): 88 12 Steps (QC): 88 Picking up an Object (QC): 88 Wheel 50 feet with 2 turns (QC: 6 Wheel 150 feet: 6 PT Plan Treatment/Plan Treatment Plan: Continue Plan of Care Treatment Plan: Bed Mobility, Education, Functional Activity Leti, Functional Strength, Group Therapy, Gait, Safety, Therapeutic Exercise, Transfers Treatment Duration: Dec 11, 2020 Frequency: Modified Program (IRF) Estimated Hrs Per Day: 1 hour per day Patient and/or Family Agrees t: Yes Time/GCodes Time In: 1315 Time Out: 1330 Total Billed Treatment Time: 15 Total Billed Treatment 1,FA15m ESSENCE ARRIAZA TOILET ATTENDANT Dec 20, 2020 13:36
[2020-12-20 16:22] VITALS: BP 118/80
[2020-12-20] MEDS: MELATONIN 10 MG TABLET PO SCH (21:14)
[2020-12-20] MEDS: MIRTAZAPINE 15 MG (REMERON) TAB PO SCH (21:14)
[2020-12-20] MEDS: ADVAIR HFA 115/21 MCG INHALER 8 GM IH SCH (22:28)
[2020-12-20] MEDS: RT-ALBUTEROL/IPRATROPIUM 3 ML (DUONEB) VIAL IH SCH (22:29)
[2020-12-21 05:01] VITALS: BP 115/67
--- NOTE | 2020-12-21 06:00 | PM&R Progress Note ---
Subjective HPI/CC On Admission Date Seen by Provider: Dec 21, 2020 Time Seen by Provider: 13:30 Subjective/Events-last exam 12/21/20: Transferring well Ambulating very well Doing well overall Hematuria remains 12/20/20: Much improved ambulation Less hematuria Dysuria still BM+ Talked about COVID vaccine 12/19/20: Valdes was discontinued and hes going to urinate every hour Updated Dr. Marsh Bowels moved yesterday Conferred with Dr. Marsh at the bedside with the patient 12/18/20: Bowels are moving today Passed a clot in the urine today Hemorrhoid cream will be provided Catheter was removed today per Dr. Marsh 12/17/20: Catheter will be taken out tomorrow Has not required continuous bladder irrigation Bowels are moving pretty well Overall participating in therapy and getting stronger 12/16/20: Hgb 9.4 Getting ready to stand with walker and help Valdes Catheter still in place, will remove on Wednesday per urology Checked meds and labs 12/15/20: Doing well BM after suppository Valdes in place no hematuria Bed lamar for BM 12/14/20: No longer taking Belladonna supp Urine cleared TBI DC Improved overall Holding OAC 12/13/20: Dr Marsh assessed him to be doing well Slowing the CBI O2 2L/min wbc 11 Belladonna supp help his pain 12/12/20: s/p TURP Belladonna supp for pain Monitor labs Holding OAC Levaquin 500mg daily Appreciate Dr Marsh 12/10/20: TURP scheduled for tomorrow morning Receiving two units of blood in preparation for the surgery since there is blood loss during the surgery Remains on two liters of oxygen Overall feels like he is doing really well 12/09/20: Bowels moved after suppository yesterday Holding anticoagulation for TURP Hgb 8.7 s/p five doses of Venofer Overall feels pretty good 12/08/20: MRSA of sputum still present TURP Wed Holding OAC now for surgery Standing a bit on his own with sit to stand 12/07/20: Second sputum done and pending BM incontinent Hold Eliquis tomorrow in prep for TURP 2L/min O2 maintained Sit to stand is helpful 12/06/20/: Steady improvement Dr Pritchett Fernando for toenail care Second sputum pending to get out of isolation BM today 12/05/20: BM today 2L/min BP low so will monitor closely Improved transfers Updated patient and his who was on the phone 12/04/20: Pt slept very well again Coughing up a little bit more sputum that does show MRSA and ESBL, will remain in isolation Valdes is back in Will have TURP on Wednesday, holding Eliquis on Wednesday Incontinence of bowels is noted Overall extremely improved 12/03/20: Discontinued catheter yesterday by Dr. 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 Up in chair today BM++ Good outlook O2 at 3L/min Increase O2 during therapies 11/29/20: No new issues Midline was placed now flushes maintained Much improved status Down to 1 L of oxygen Increased oxygen requirement with exercise Still with Valdes catheter in place Upright in wheelchair today Dramatic improvement 11/28/20: Slept a bit better Midline for Venofer will be placed Much improved status BSC today Valdes cath replaced 11/27/20: Pt remains on 1 liter per minute of oxygen Appears to be much improved today Cystoscope done today showing large prostate Proscar along with Flomax was initiated Cath was done and obtained 1000cc of urine Nystatin cream and powder will be initiated Overall much improved 11/26/20: Pt did not sleep last night due to urinary frequency Had to do straight in and out cath x4 last night Dr. Marsh will be updated Blood in the urine 1 liter of O2 now but will need a higher level when he is working out CT chest and ABG reviewed 11/25/20: ABG is pending from not being drawn yet CT of the chest will be performed, Dr. Schrader has been updated Bowels moved yesterday 11/24/20: Venofer IV started and I explained why I started that for him Will check CT scan of chest tomorrow and consult Dr Schrader Labs and ABG ordered as well Still very tachypneic with conversation and at rest Monitoring BP 2L/min 11/23/20: No orthostasis today Worked with PT OT BM++ O2 maintained 11/22/20: Hgb 8.6 today Feels better since IVF 500cc yesterday and changed cardiac meds by Dr Cisneros Justice guevara was born and he is thrilled about that Valdes cath still in place Fecal incontinence noted RT left him without O2 since he was good BRIEFLY on room air after Nebs for 1 hour and spot checked and he was at 85% and he was very short of breath just resting 11/21/20: Had episode of hypotension 76/40 with symptoms when got to edge of bed so laid back down, Cardiology notified and given 500cc of IVF Patient is on a waiver due to COVID and hypoxia for slow therapy and only 120 minutes per day Cardizem CD 120mg now after changed by Dr Cisneros ECHO done Stopped Lasix Valdes cath remains in place Review of Systems General: Fatigue, Malaise Pulmonary: Dyspnea Genitourinary: Dysuria, Frequency Neurological: Weakness Objective Exam Vital Signs Vital Signs Date Time Temp Pulse Resp B/P (MAP) Pulse Ox O2 Delivery O2 Flow Rate FiO2 12/22/20 05:00 36.9 87 18 108/69 (82) 95 Room Air 12/21/20 20:00 2.00 Capillary Refill : Less Than 3 Seconds General Appearance: No Apparent Distress, WD/WN, Chronically ill, Thin HEENT: PERRL/EOMI, Normal ENT Inspection, Pharynx Normal Neck: Full Range of Motion, Normal Inspection, Non Tender, Supple, Carotid Bruit Respiratory: Chest Non Tender, Lungs Clear, No Respiratory Distress, Accessory Muscle Use, Decreased Breath Sounds Cardiovascular: Regular Rate, Rhythm, No Edema, No Gallop, No JVD, No Murmur, Normal Peripheral Pulses Gastrointestinal: Normal Bowel Sounds, No Organomegaly, No Pulsatile Mass, Non Tender, Soft Back: Normal Inspection, No CVA Tenderness, No Vertebral Tenderness Extremity: Normal Capillary Refill, Normal Inspection, Normal Range of Motion, Non Tender, No Calf Tenderness, No Pedal Edema Neurologic/Psychiatric: Alert, Oriented x3, No Motor/Sensory Deficits, Normal Mood/Affect, Motor Weakness (generalized 2/5 lower extremities, 3/5 upper extremities) Skin: Normal Color, Warm/Dry Lymphatic: No Adenopathy Results/Procedures Lab Patient resulted labs reviewed. FIM Transfers Therapy Code Descriptions/Definitions Functional [place] Measure: 0=Not Assessed/NA 4=Minimal Assistance 1=Total Assistance 5=Supervision or Setup 2=Maximal Assistance 6=Modified [place] 3=Moderate Assistance 7=Complete IndependenceSCALE: Activities may be completed with or without assistive devices. 2-Ghlbabuxzd-aicrmap completes the activity by him/herself with no assistance from a helper. 5-Set-up or Clean-up Assistance-helper sets up or cleans up; patient completes activity. [place] assists only prior to or following the activity. 4-Supervision or Touching Assistance-helper provides verbal cues and/or touching/steadying and/or contact guard assistance as patient completes activity. Assistance may be provided throughout the activity or intermittently. 3-Partial/Moderate Assistance-helper does LESS THAN HALF the effort. [place] lifts, holds or supports trunk or limbs, but provides less than half the effort. 2-Substantial/Maximal Assistance-helper does MORE THAN HALF the effort. [place] lifts or holds trunk or limbs and provides more than half the effort. 4-Rlxefsrty-zvfoqq does ALL the effort. Patient does none of the effort to complete the activity. Or, the assistance of 2 or more helpers is required for the patient to complete the activity. If activity was not attempted, code reason: 7-Patient Refused. 9-Not Applicable-not attempted and the patient did not perform the activity before the current illness, exacerbation or injury. 10-Not Attempted due to Environmental Limitations-(lack of equipment, weather restraints, etc.). 88-Not Attempted due to Medical Conditions or Safety Concerns. Roll Left to Right (QC): 6 Sit to Lying (QC): 6 Sit to Stand (QC): 4 Chair/Tpv-fn-Zlbxo Xfer(QC): 4 Car Transfer (QC): 2 Gait Training Does the Patient Walk?: Yes Distance: 8" x4, 18', 18' & 28' Walk 10 feet (QC): 4 Walk 50 ft with 2 Turns(QC): 4 Walk 150 ft (QC): 88 Walking 10ft/uneven surface-QC: 88 Gait Persons Needed: 1 Gait Assistive Device: FWW Wheelchair Training Does the Pt Use a Wheelchair?: Yes Wheel 50 ft with 2 turns (QC): 5 Wheel 150 ft (QC): 5 Type of Wheelchair: Manual Stair Training 1 Step (curb) (QC): 88 4 Steps (QC): 88 12 Steps (QC): 88 Balance Picking up an Object (QC): 88 ADL-Treatment Eating (QC): 6 Oral Hygiene (QC): 6 Bathing Location: L Arm, R Arm, L Upper Leg, R Upper Leg, L Lower Leg (including foot), R Lower Leg (including foot), Chest, Abdomen, Perineal Area Shower/Bathe Self (QC): 6 Upper Body Dressing (QC): 5 Lower Body Dressing (QC): 4 On/Off Footwear (QC): 5 Toileting Hygiene (QC): 3 Toilet Transfer (QC): 4 Assessment/Plan Assessment and Plan Assess & Plan/Chief Complaint Assessment: Myopathy COVID-19 PNA Urinary retention Valdes cath in place Bowel incontinence Hypoxia O2 dependent BPH Frail Advanced age Sputum colonized with MRSA and ESBL Plan: IRF protocol but 120 minutes per day to accommodate hypoxia at activity [place] meds Melatonin at night 11/21/20: s/o IVF Monitor hypotension and hypoxia Appreciate Dr Cisneros ECHO done Add Remeron for sleep with Melatonin 11/22/20: No possibility of weaning O2 for now with this patient so needs on 21/06 and will update RT Increase activity 11/23/20: Maintain O2 Nebs Monitor BP 11/24/20: Venofer Labs and ABG and CT chest in am Dr Schrader consultation Maintain O2 Very fragile lungs 11/25/20: CT chest ABG Dr Schrader consultation 11/26/20: Dr Schrader appreciated Dr Marsh appreciated 11/27/20: Dr Marsh appreciated Monitor O2 11/28/20: Valdes cath in place Midline Venofer 11/29/20: Midline flushes Venofer Monitor closely Dramatic improvement 11/30/20: Dramatic improvement continues Monitor closely Increase O2 with therapy 12/01/20: Bowel incontinence could complicate DC plans Monitor urinary retention closely 12/02/20: Manage B/B incontinence Improved status Labs good 12/03/20: Improved insomnia Continue treatment B/B incontinence 12/04/20: TURP next Wed Hold OAC as of Wednesday Conferred with Dr Marsh and patient 12/05/20: Improved transfers Monitor closely O2 Incontinence management 12/06/20: Steady improvement TURP Wed Hold OAC as of Wednesday12/07/20: Await second sputum Monitor closely O2 BM 12/08/20: TURP Wed Hold OAC Monitor closely Labs in am 12/09/20: TURP Wednesday Monitor closely 12/10/20: TURP tomorrow Monitor closely 2 units of blood today 12/12/20: Belladonna suppositories Monitor labs Hold OAC 12/13/20: Dr Marsh appreciated Pain control O2 Monitor closely 12/14/20: Monitor hematuria Pain control from TURP Continue therapy 12/15/20: BM regimen Monitor valdes cath Hold OAC 12/16/20: Ambulating Participating with therapy Valdes out tomorrow? 12/17/20: DC catheter tomorrow Monitor pain O2 wean 12/18/20: Monitor closely Dramatic improvement DC catheter 12/19/20: Improved overall Walking well Hematuria improved Voiding spontaneously 12/20/20: COVID vaccine discussed Monitor pain with urination Ambulating well 12/21/20: Monitor hematuria Fall risk Pain control (1) Myopathy (2) COVID-19 (3) Hypoxia (4) Urinary retention (5) Vadles catheter in place (6) BPH (benign prostatic hyperplasia) (7) Bowel incontinence (8) Supplemental oxygen dependent (9) Advanced age (10) Frailty BARB COLLINS DO Dec 21, 2020 06:00
[2020-12-21] MEDS: predniSONE 10 MG TAB PO SCH (06:31)
[2020-12-21] MEDS: TAMSULOSIN 0.4 MG (FLOMAX) CAP PO SCH ×2 (08:03→21:42)
[2020-12-21] MEDS: PHENAZOPYRIDINE 100 MG (PYRIDIUM) TABLET PO SCH ×3 (08:03→18:13)
[2020-12-21] MEDS: MONTELUKAST 10 MG (SINGULAIR) TAB PO SCH (08:03)
[2020-12-21] MEDS: ROFLUMILAST 500 MCG TAB (DALIRESP) PO SCH (08:03)
[2020-12-21] MEDS: FOLIC ACID 1 MG TAB PO SCH (08:03)
[2020-12-21] MEDS: LACTOBACILLUS ACIDOPHILUS (PROBIOTIC) CAPSULE PO SCH ×2 (08:03→21:42)
[2020-12-21] MEDS: CYANOCOBALAMIN 1,000 MCG (VITAMIN B-12) TABLET PO SCH (08:03)
[2020-12-21] MEDS: PANTOPRAZOLE 40 MG (PROTONIX) TAB PO SCH (08:03)
[2020-12-21] MEDS: LORATADINE (CLARITIN) 10 MG TAB PO SCH (08:04)
[2020-12-21] MEDS: meTOprolol TARTRATE 25 MG (LOPRESSOR) TABLET PO SCH ×2 (08:04→21:43)
[2020-12-21] MEDS: FINASTERIDE (PROSCAR) 5 MG TAB PO SCH (08:04)
[2020-12-21] MEDS: NYSTATIN CREAM (MYCOSTATIN) 30 GM TUBE TP SCH ×3 (08:04→21:43)
[2020-12-21] MEDS: DOCUSATE SODIUM 100 MG (COLACE) CAP PO SCH ×2 (08:04→21:42)
[2020-12-21] MEDS: MICONAZOLE 2% POWDER (DESENEX AF) 90 GM TOP SCH ×2 (08:04→21:43)
[2020-12-21] MEDS: ADVAIR HFA 115/21 MCG INHALER 8 GM IH SCH ×2 (08:30→21:49)
[2020-12-21] MEDS: RT-ALBUTEROL/IPRATROPIUM 3 ML (DUONEB) VIAL IH SCH ×2 (08:30→21:49)
[2020-12-21] MEDS: polyethylene glycoL POWDER 17 GM (MIRALAX) PACK PO SCH ×2 (09:00→21:44)
[2020-12-21] MEDS: SENNA W/DOCUSATE (SENOKOT S) TABLET PO SCH ×2 (10:08→21:42)
--- NOTE | 2020-12-21 11:41 | Physical Therapy Daily Note ---
PT Daily Note-Current Subjective Agrees to PT> No complaints this date. Looking forward to seeing his next week. Mental Status Patient Orientation: Person, Place, Time, Situation Transfers SCALE: Activities may be completed with or without assistive devices. 9-Xoqkkldwrb-pobzqie completes the activity by him/herself with no assistance from a helper. 5-Set-up or Clean-up Assistance-helper sets up or cleans up; patient completes activity. [place] assists only prior to or following the activity. 4-Supervision or Touching Assistance-helper provides verbal cues and/or touching/steadying and/or contact guard assistance as patient completes activity. Assistance may be provided throughout the activity or intermittently. 3-Partial/Moderate Assistance-helper does LESS THAN HALF the effort. [place] lifts, holds or supports trunk or limbs, but provides less than half the effort. 2-Substantial/Maximal Assistance-helper does MORE THAN HALF the effort. [place] lifts or holds trunk or limbs and provides more than half the effort. 5-Bbirhxrsx-dztwfb does ALL the effort. Patient does none of the effort to complete the activity. Or, the assistance of 2 or more helpers is required for the patient to complete the activity. If activity was not attempted, code reason: 7-Patient Refused. 9-Not Applicable-not attempted and the patient did not perform the activity before the current illness, exacerbation or injury. 10-Not Attempted due to Environmental Limitations-(lack of equipment, weather restraints, etc.). 88-Not Attempted due to Medical Conditions or Safety Concerns. Sit to Stand (QC): 4 Weight Bearing Full Weight Bearing Full Weight Bearing Gait Training Walk 50 ft with 2 Turns(QC): 4 Gait Assistive Device: FWW Pt ambulated x 42', 45', 75' and 15' with FWW with close CGA; as he tires, decreased heel strike and step length and tends to walk with knees slightly flexed. O2 monitored throughout with sats dropping to 88% once and able to franny oleg to >92% within a few seconds. Oxygen on during and post treatment session. Assessment Current Status: Good Progress Increasing gait distance and activity tolerance. PT Short Term Goals Short Term Goals Time Frame: Nov 27, 2020 Roll Left & Right: 3 Sit to lyin Lying to sitting on side of be: 3 Sit to stand: 3 Chair/pza-ch-gbfya transfer: 3 Walk 10 feet: 3 PT Nurse Case Management Goals Alf Goals PT Alf Goals Time Frame: Dec 11, 2020 Roll Left & Right (QC): 4 Sit to Lying (QC): 4 Lying-Sitting on Side/Bed(QC): 4 Sit to Stand (QC): 4 Chair/Tqz-ny-Neuik Xfer(QC): 4 Toilet Transfer (QC): 4 Car Transfer (QC): 3 Does the Patient Walk: Yes Walk 10 feet (QC): 3 Walk 50ft with 2 Turns (QC): 3 Walk 150 ft (QC): 88 Walking 10ft on Uneven Surface: 3 1 Step (curb) (QC): 3 4 Steps (QC): 88 12 Steps (QC): 88 Picking up an Object (QC): 88 Wheel 50 feet with 2 turns (QC: 6 Wheel 150 feet: 6 PT Plan Problem List Problem List: Activity Tolerance, Functional Strength, Safety, Balance, Gait, Transfer, Bed Mobility Treatment/Plan Treatment Plan: Continue Plan of Care Treatment Plan: Bed Mobility, Education, Functional Activity Leti, Functional Strength, Group Therapy, Gait, Safety, Therapeutic Exercise, Transfers Treatment Duration: Dec 11, 2020 Frequency: Modified Program (IRF) Estimated Hrs Per Day: 1 hour per day Patient and/or Family Agrees t: Yes Safety Risks/Education Patient Education: Gait Training Teaching Recipient: Patient Teaching Methods: Discussion Response to Teaching: Return Demonstration Time/GCodes Time In: 825 Time Out: 850 Total Billed Treatment Time: 25 Total Billed Treatment visit GT 25 VIOLET VARMA PT Dec 21, 2020 11:41
[2020-12-21 17:42] VITALS: BP 113/71
[2020-12-21] MEDS: MELATONIN 10 MG TABLET PO SCH (21:42)
[2020-12-21] MEDS: MIRTAZAPINE 15 MG (REMERON) TAB PO SCH (21:43)
[2020-12-22 05:00] VITALS: BP 108/69
[2020-12-22] MEDS: predniSONE 10 MG TAB PO SCH (06:32)
[2020-12-22] MEDS: RT-ALBUTEROL/IPRATROPIUM 3 ML (DUONEB) VIAL IH SCH ×2 (07:42→18:35)
[2020-12-22] MEDS: ADVAIR HFA 115/21 MCG INHALER 8 GM IH SCH ×2 (07:43→18:37)
[2020-12-22] MEDS: MONTELUKAST 10 MG (SINGULAIR) TAB PO SCH (08:34)
[2020-12-22] MEDS: FINASTERIDE (PROSCAR) 5 MG TAB PO SCH (08:34)
[2020-12-22] MEDS: PANTOPRAZOLE 40 MG (PROTONIX) TAB PO SCH (08:34)
[2020-12-22] MEDS: ROFLUMILAST 500 MCG TAB (DALIRESP) PO SCH (08:34)
[2020-12-22] MEDS: FOLIC ACID 1 MG TAB PO SCH (08:34)
[2020-12-22] MEDS: meTOprolol TARTRATE 25 MG (LOPRESSOR) TABLET PO SCH ×2 (08:35→21:32)
[2020-12-22] MEDS: LORATADINE (CLARITIN) 10 MG TAB PO SCH (08:35)
[2020-12-22] MEDS: CYANOCOBALAMIN 1,000 MCG (VITAMIN B-12) TABLET PO SCH (08:35)
[2020-12-22] MEDS: LACTOBACILLUS ACIDOPHILUS (PROBIOTIC) CAPSULE PO SCH ×2 (08:35→21:32)
[2020-12-22] MEDS: PHENAZOPYRIDINE 100 MG (PYRIDIUM) TABLET PO SCH ×3 (08:35→18:08)
[2020-12-22] MEDS: TAMSULOSIN 0.4 MG (FLOMAX) CAP PO SCH ×2 (08:35→21:32)
[2020-12-22] MEDS: MICONAZOLE 2% POWDER (DESENEX AF) 90 GM TOP SCH ×2 (08:36→21:34)
[2020-12-22] MEDS: NYSTATIN CREAM (MYCOSTATIN) 30 GM TUBE TP SCH ×3 (08:36→21:36)
--- NOTE | 2020-12-22 08:56 | Progress Note - Urology ---
Progress Note-Urology Progress Notes/Assess & Plan Progress/Assessment & Plan VOIDING WELL. FEELS EMPTYING. URINE CLEAR AND CASSY. CHECK PVR AND STOP 3 GLASS TEST Final Diagnosis RETENTION DENTON MA MD Dec 22, 2020 08:56
[2020-12-22] MEDS: DOCUSATE SODIUM 100 MG (COLACE) CAP PO SCH ×2 (08:58→21:32)
[2020-12-22] MEDS: polyethylene glycoL POWDER 17 GM (MIRALAX) PACK PO SCH ×2 (08:58→21:30)
[2020-12-22] MEDS: SENNA W/DOCUSATE (SENOKOT S) TABLET PO SCH ×2 (08:58→21:32)
--- NOTE | 2020-12-22 11:42 | PM&R Progress Note ---
Subjective HPI/CC On Admission Date Seen by Provider: Dec 22, 2020 Time Seen by Provider: 11:45 Subjective/Events-last exam 12/22/20: No blood in urine now No pain urinating No PVR Less frequency Had a non-injury fall backwards today 12/21/20: Transferring well Ambulating very well Doing well overall Hematuria remains 12/20/20: Much improved ambulation Less hematuria Dysuria still BM+ Talked about COVID vaccine 12/19/20: Valdes was discontinued and hes going to urinate every hour Updated Dr. Marsh Bowels moved yesterday Conferred with Dr. Marsh at the bedside with the patient 12/18/20: Bowels are moving today Passed a clot in the urine today Hemorrhoid cream will be provided Catheter was removed today per Dr. Marsh 12/17/20: Catheter will be taken out tomorrow Has not required continuous bladder irrigation Bowels are moving pretty well Overall participating in therapy and getting stronger 12/16/20: Hgb 9.4 Getting ready to stand with walker and help Valdes Catheter still in place, will remove on Wednesday per urology Checked meds and labs 12/15/20: Doing well BM after suppository Valdes in place no hematuria Bed lamar for BM 12/14/20: No longer taking Belladonna supp Urine cleared TBI DC Improved overall Holding OAC 12/13/20: Dr Marsh assessed him to be doing well Slowing the CBI O2 2L/min wbc 11 Belladonna supp help his pain 12/12/20: s/p TURP Belladonna supp for pain Monitor labs Holding OAC Levaquin 500mg daily Appreciate Dr Marsh 12/10/20: TURP scheduled for tomorrow morning Receiving two units of blood in preparation for the surgery since there is blood loss during the surgery Remains on two liters of oxygen Overall feels like he is doing really well 12/09/20: Bowels moved after suppository yesterday Holding anticoagulation for TURP Hgb 8.7 s/p five doses of Venofer Overall feels pretty good 12/08/20: MRSA of sputum still present TURP Wed Holding OAC now for surgery Standing a bit on his own with sit to stand 12/07/20: Second sputum done and pending BM incontinent Hold Eliquis tomorrow in prep for TURP 2L/min O2 maintained Sit to stand is helpful 12/06/20/: Steady improvement Dr Pritchett Wednesday for toenail care Second sputum pending to get out of isolation BM today 12/05/20: BM today 2L/min BP low so will monitor closely Improved transfers Updated patient and his who was on the phone 12/04/20: Pt slept very well again Coughing up a little bit more sputum that does show MRSA and ESBL, will remain in isolation Valdes is back in Will have TURP on Wednesday, holding Eliquis on Wednesday Incontinence of bowels is noted Overall extremely improved 12/03/20: Discontinued catheter yesterday by Dr. 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 Up in chair today BM++ Good outlook O2 at 3L/min Increase O2 during therapies 11/29/20: No new issues Midline was placed now flushes maintained Much improved status Down to 1 L of oxygen Increased oxygen requirement with exercise Still with Valdes catheter in place Upright in wheelchair today Dramatic improvement 11/28/20: Slept a bit better Midline for Venofer will be placed Much improved status BSC today Valdes cath replaced 11/27/20: Pt remains on 1 liter per minute of oxygen Appears to be much improved today Cystoscope done today showing large prostate Proscar along with Flomax was initiated Cath was done and obtained 1000cc of urine Nystatin cream and powder will be initiated Overall much improved 11/26/20: Pt did not sleep last night due to urinary frequency Had to do straight in and out cath x4 last night Dr. Marsh will be updated Blood in the urine 1 liter of O2 now but will need a higher level when he is working out CT chest and ABG reviewed 11/25/20: ABG is pending from not being drawn yet CT of the chest will be performed, Dr. Schrader has been updated Bowels moved yesterday 11/24/20: Venofer IV started and I explained why I started that for him Will check CT scan of chest tomorrow and consult Dr Schrader Labs and ABG ordered as well Still very tachypneic with conversation and at rest Monitoring BP 2L/min 11/23/20: No orthostasis today Worked with PT OT BM++ O2 maintained 11/22/20: Hgb 8.6 today Feels better since IVF 500cc yesterday and changed cardiac meds by Dr Cisneros [place] was born and he is thrilled about that Valdes cath still in place Fecal incontinence noted RT left him without O2 since he was good BRIEFLY on room air after Nebs for 1 hour and spot checked and he was at 85% and he was very short of breath just resting 11/21/20: Had episode of hypotension 76/40 with symptoms when got to edge of bed so laid back down, Cardiology notified and given 500cc of IVF Patient is on a waiver due to COVID and hypoxia for slow therapy and only 120 minutes per day Cardizem CD 120mg now after changed by Dr Cisneros ECHO done Stopped Lasix Valdes cath remains in place Review of Systems General: Fatigue Pulmonary: Dyspnea Objective Exam Vital Signs Vital Signs Date Time Temp Pulse Resp B/P (MAP) Pulse Ox O2 Delivery O2 Flow Rate FiO2 12/22/20 18:37 96 Nasal Cannula 2.00 12/22/20 17:41 36.8 81 17 99/60 (73) Capillary Refill : Less Than 3 Seconds General Appearance: No Apparent Distress, WD/WN, Chronically ill, Thin HEENT: PERRL/EOMI, Normal ENT Inspection, Pharynx Normal Neck: Full Range of Motion, Normal Inspection, Non Tender, Supple, Carotid Bruit Respiratory: Chest Non Tender, Lungs Clear, No Respiratory Distress, Accessory Muscle Use, Decreased Breath Sounds Cardiovascular: Regular Rate, Rhythm, No Edema, No Gallop, No JVD, No Murmur, Normal Peripheral Pulses Gastrointestinal: Normal Bowel Sounds, No Organomegaly, No Pulsatile Mass, Non Tender, Soft Back: Normal Inspection, No CVA Tenderness, No Vertebral Tenderness Extremity: Normal Capillary Refill, Normal Inspection, Normal Range of Motion, Non Tender, No Calf Tenderness, No Pedal Edema Neurologic/Psychiatric: Alert, Oriented x3, No Motor/Sensory Deficits, Normal Mood/Affect, Motor Weakness (generalized 2/5 lower extremities, 3/5 upper extremities) Skin: Normal Color, Warm/Dry Lymphatic: No Adenopathy Results/Procedures Lab Patient resulted labs reviewed. FIM Transfers Therapy Code Descriptions/Definitions Functional [place] Measure: 0=Not Assessed/NA 4=Minimal Assistance 1=Total Assistance 5=Supervision or Setup 2=Maximal Assistance 6=Modified [place] 3=Moderate Assistance 7=Complete IndependenceSCALE: Activities may be completed with or without assistive devices. 1-Tpijrwogmo-xzjvozk completes the activity by him/herself with no assistance from a helper. 5-Set-up or Clean-up Assistance-helper sets up or cleans up; patient completes activity. [place] assists only prior to or following the activity. 4-Supervision or Touching Assistance-helper provides verbal cues and/or touching/steadying and/or contact guard assistance as patient completes activity. Assistance may be provided throughout the activity or intermittently. 3-Partial/Moderate Assistance-helper does LESS THAN HALF the effort. [place] lifts, holds or supports trunk or limbs, but provides less than half the effort. 2-Substantial/Maximal Assistance-helper does MORE THAN HALF the effort. [place] lifts or holds trunk or limbs and provides more than half the effort. 6-Dmabqjtxr-wuotiy does ALL the effort. Patient does none of the effort to complete the activity. Or, the assistance of 2 or more helpers is required for the patient to complete the activity. If activity was not attempted, code reason: 7-Patient Refused. 9-Not Applicable-not attempted and the patient did not perform the activity before the current illness, exacerbation or injury. 10-Not Attempted due to Environmental Limitations-(lack of equipment, weather restraints, etc.). 88-Not Attempted due to Medical Conditions or Safety Concerns. Roll Left to Right (QC): 6 Sit to Lying (QC): 6 Sit to Stand (QC): 4 Chair/Kzo-ql-Raycb Xfer(QC): 4 Car Transfer (QC): 2 Gait Training Does the Patient Walk?: Yes Distance: 8" x4, 18', 18' & 28' Walk 10 feet (QC): 4 Walk 50 ft with 2 Turns(QC): 4 Walk 150 ft (QC): 88 Walking 10ft/uneven surface-QC: 88 Gait Persons Needed: 1 Gait Assistive Device: FWW Wheelchair Training Does the Pt Use a Wheelchair?: Yes Wheel 50 ft with 2 turns (QC): 5 Wheel 150 ft (QC): 5 Type of Wheelchair: Manual Stair Training 1 Step (curb) (QC): 88 4 Steps (QC): 88 12 Steps (QC): 88 Balance Picking up an Object (QC): 88 ADL-Treatment Eating (QC): 6 Oral Hygiene (QC): 6 Bathing Location: L Arm, R Arm, L Upper Leg, R Upper Leg, L Lower Leg (including foot), R Lower Leg (including foot), Chest, Abdomen, Perineal Area Shower/Bathe Self (QC): 6 Upper Body Dressing (QC): 5 Lower Body Dressing (QC): 4 On/Off Footwear (QC): 5 Toileting Hygiene (QC): 3 Toilet Transfer (QC): 4 Assessment/Plan Assessment and Plan Assess & Plan/Chief Complaint Assessment: Myopathy COVID-19 PNA Urinary retention Valdes cath in place Bowel incontinence Hypoxia O2 dependent BPH Frail Advanced age Sputum colonized with MRSA and ESBL Plan: IRF protocol but 120 minutes per day to accommodate hypoxia at activity [place] meds Melatonin at night 11/21/20: s/o IVF Monitor hypotension and hypoxia Appreciate Dr Cisneros ECHO done Add Remeron for sleep with Melatonin 11/22/20: No possibility of weaning O2 for now with this patient so needs on 21/06 and will update RT Increase activity 11/23/20: Maintain O2 Nebs Monitor BP 11/24/20: Venofer Labs and ABG and CT chest in am Dr Schrader consultation Maintain O2 Very fragile lungs 11/25/20: CT chest ABG Dr Schrader consultation 11/26/20: Dr Schrader appreciated Dr Marsh appreciated 11/27/20: Dr Marsh appreciated Monitor O2 11/28/20: Valdes cath in place Midline Venofer 11/29/20: Midline flushes Venofer Monitor closely Dramatic improvement 11/30/20: Dramatic improvement continues Monitor closely Increase O2 with therapy 12/01/20: Bowel incontinence could complicate DC plans Monitor urinary retention closely 12/02/20: Manage B/B incontinence Improved status Labs good 12/03/20: Improved insomnia Continue treatment B/B incontinence 12/04/20: TURP next Wed OAC as of [place] Conferred with Dr Marsh and patient 1/7/21: Improved transfers Monitor closely O2 Incontinence management 12/06/20: Steady improvement TURP Wed Hold OAC as of Wednesday12/07/20: Await second sputum Monitor closely O2 BM 12/08/20: TURP Wed Hold OAC Monitor closely Labs in am 12/09/20: TURP Wednesday Monitor closely 12/10/20: TURP tomorrow Monitor closely 2 units of blood today 12/12/20: Belladonna suppositories Monitor labs Hold OAC 12/13/20: Dr Marsh appreciated Pain control O2 Monitor closely 12/14/20: Monitor hematuria Pain control from TURP Continue therapy 12/15/20: BM regimen Monitor valdes cath Hold OAC 12/16/20: Ambulating Participating with therapy Valdes out tomorrow? 12/17/20: DC catheter tomorrow Monitor pain O2 wean 12/18/20: Monitor closely Dramatic improvement DC catheter 12/19/20: Improved overall Walking well Hematuria improved Voiding spontaneously 12/20/20: COVID vaccine discussed Monitor pain with urination Ambulating well 12/21/20: Monitor hematuria Fall risk Pain control 12/22/20: Fall noted today Monitor hematuria Doing well from TURP Reviewed notes from Dr Khan about the "hole" in his lung per patient (1) Myopathy (2) COVID-19 (3) Hypoxia (4) Urinary retention (5) Valdes catheter in place (6) BPH (benign prostatic hyperplasia) (7) Bowel incontinence (8) Supplemental oxygen dependent (9) Advanced age (10) Frailty BARB COLLINS DO Dec 22, 2020 11:42
--- NOTE | 2020-12-22 16:29 | NUR ---
This nurse heard a thud come from patient's room at 1605. Patient found sitting on floor with feet in front of him next to sink cabinet in his room with PILLOW AGENT at his side. Patient was being assisted by PILLOW AGENT to walk around his room. PILLOW AGENT and Patient report that he had let go of his walker and started to "go backwards". PILLOW AGENT was able to prevent patient from hitting his back on the cabinet. Patient assisted to a standing position and helped back to bed. Patient reports no injury felt. No injuries noted by this nurse. Dr. Saxena, Nurse Receptionist, and patient's notified.
[2020-12-22 17:41] VITALS: BP 99/60
[2020-12-22] MEDS: APAP 325 MG/10.15 ML LIQ (TYLENOL) UDC PO PRN (18:08)
--- NOTE | 2020-12-22 18:30 | Progress Note - Cardiology ---
Cardiology SOAP Progress Note Subjective: No cp or palp or syncope or shortness or breath or swelling or palp No n/v Gen malaise Objective: I&O/Vital Signs 12/22/20 12/22/20 12/22/20 07:43 09:00 17:41 Temp 36.8 Pulse 81 Resp 17 B/P (MAP) 99/60 (73) Pulse Ox 95 100 O2 Delivery Nasal Cannula Nasal Cannula Room Air O2 Flow Rate 2.00 2.00 12/22/20 00:00 Intake Total 1200 ml Output Total 750 ml Balance 450 ml Constitutional: AAO x 3, well-developed, well-nourished Respiratory: No accessory muscle use; other (good bilat air entry, somewhat diminished at the bases) Cardiovascular: irregularly irregular, S1 and S2, systolic murmur (2/6 SHERMAN at card base) Gastrointestional: No tender; soft; No guarding, No rebound; audible bowel sounds Extremities: No clubbing, No cyanosis, No significant edema Neurologic/Psychiatric: oriented x 3, other (moves all limbs) Skin: No rash on exposed areas, No ulcerations on exposed areas Results/Procedures: Labs Microbiology 12/06/20 Gram Stain - Final, Complete 12/06/20 Sputum Culture - Final, Complete Usual upper respiratory bravo Staphylococcus aureus Probable E.coli A/P: Assessment: PAF, currently NSR S/p ac resp failure due to COVID-19 in early 2019 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 Diuretics s topped on 11/21/20. Sildenafil reduced on 11/23/20 and stopped on 11/25/20 Plan: * Continue current regimen * Monitor labs from time to time LIONEL LUONG MD FACP FAC CCDS Dec 22, 2020 18:30
--- NOTE | 2020-12-22 19:20 | Progress Note ---
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 Patient on anticoagulation for history pulmonary embolism. He has return to clinic for exam, follow-up CT chest, to discuss. He does have as indicated in report some changes that would suggest asbestos related exposures on the CT. He did have a job where he had some exposure over the years. Patient is a non-smoker. He has no trouble with weight loss or hemoptysis no unusual breathing difficulties. CT CHEST HIGH RESOLUTION Narrativew CT CHEST WITHOUT CONTRAST: STANDARD/HIGH RESOLUTION SLICES UPPER LUNGS/MIDLUNGS/BASES/PRONE/SUPINE POSITION. CT CHEST HIGH RESOLUTION TECHNIQUE: CT chest w/o contrast. Standard lung imaging apices - upper abdomen with additional high resolution technique upper/mid/lower lung selected slices with edge enhancement algorithm; coronal/sagittal 2D reconstructions. HISTORY: 79 years Male Interstitial pulmonary fibrosis / interstitial lung disease / fibrosis. [facility] pulmonology service referral. Previous DVT. Cholecystectomy. FINDINGS: LAD coronary artery calcification, old healed granulomatous disease. Calcified hilar lymph nodes and calcified pulmonary granulomas. Emphysematous changes lungs with large bullous disease with thin peripheral wall right upper lung. This is seen on chest x-ray as well, and measures 5.8 cm by 6.1 x 6.3 cm. No pneumonia or failure. Multifocal peripheral calcified and noncalcified pleural plaques, consistent with asbestos-related pleural disease. Mild interstitial prominence lung bases, worse on the left, which resolves with prone imaging, likely dependent atelectasis. No interstitial fibrosis, no asbestosis of the lungs. Small hiatal hernia with GERD. Small calcified and noncalcified lymph nodes without adenopathy chest/upper abdomen. Upper abdomen: Cholecystectomy. Benign-appearing low-density pedunculated cortically-based cysts both kidneys. Osseous structures: DDD/DJD. No acute or aggressive osseous lesions. 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 1. No CT evidence of mesothelioma. 2. No asbestosis of the lungs. 3. Old healed granulomatous disease. 4. Emphysematous changes lungs with large right upper medial lung bulla measuring 5.8 x 6.1 x 6.3 cm. 5. Small hiatal hernia with GERD. Contact interpreting radiologist # for physician inquiry/clinical information/consultation ([place], [place]): OFFICE: [phone] / secondary back up #s: [phone] (lead [place] office). 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 They can answer your questions and provide further guidance. If they are not available, call the [facility] Patient Cadmium Burner for assistance ([phone]). If recommendations for further imaging are provided, also contact your care provider/primary care team/physician to see if this study is indicated or needed for your care plan. Reviewed CT scan chest with patient and . Impression:Doubt interstitial lung disease. Has some minimal irregularities of the pleura, possibly from asbestos exposure, on treatment for PE, chronic anticoagulation. Plan:Return to clinic October with new CT scan chest follow-up of pleural abnormalities, bullous lesion. Anticoagulation per primary care. BARB COLLINS DO Dec 22, 2020 19:20
[2020-12-22] MEDS: MIRTAZAPINE 15 MG (REMERON) TAB PO SCH (21:32)
[2020-12-22] MEDS: MELATONIN 10 MG TABLET PO SCH (21:32)
[2020-12-23] MEDS: APAP 325 MG/10.15 ML LIQ (TYLENOL) UDC PO PRN ×3 (00:48→17:34)
[2020-12-23 05:34] LABS: BASOPHILS % (AUTO) 1 % (0-10); EOSINOPHILS # (AUTO) 0.1 10^3/uL (0.0-0.3); EOSINOPHILS % (AUTO) 1 % (0-10); HEMATOCRIT 29 % (40-54); HEMOGLOBIN 8.8 g/dL (13.3-17.7); LYMPHOCYTES # (AUTO) 2.7 10^3/uL (1.0-4.0); LYMPHOCYTES % (AUTO) 33 % (12-44); MEAN CORPUSCULAR HEMOGLOBIN 29 pg (25-34); MEAN CORPUSCULAR HGB CONC 30 g/dL (32-36); MEAN CORPUSCULAR VOLUME 97 fL (80-99); MEAN PLATELET VOLUME 9.3 fL (9.0-12.2); MONOCYTES # (AUTO) 0.6 10^3/uL (0.0-1.0); MONOCYTES % (AUTO) 7 % (0-12); NEUTROPHILS # (AUTO) 4.5 10^3/uL (1.8-7.8); NEUTROPHILS % (AUTO) 56 % (42-75); PLATELET COUNT 175 10^3/uL (130-400); WHITE BLOOD COUNT 8.1 10^3/uL (4.3-11.0)
[2020-12-23 05:46] LABS: ALBUMIN 2.7 GM/DL (3.2-4.5); CHLORIDE 107 MMOL/L (98-107); POTASSIUM 4.6 MMOL/L (3.6-5.0); SODIUM 141 MMOL/L (135-145)
[2020-12-23 05:47] LABS: CALCIUM 8.4 MG/DL (8.5-10.1)
[2020-12-23 05:49] LABS: GLUCOSE 97 MG/DL (70-105)
[2020-12-23 05:50] LABS: CARBON DIOXIDE 26 MMOL/L (21-32)
[2020-12-23 05:51] LABS: BILIRUBIN,TOTAL 0.3 MG/DL (0.1-1.0)
[2020-12-23 05:52] LABS: ALKALINE PHOSPHATASE 77 U/L (40-136); CREATININE SERUM 0.75 MG/DL (0.60-1.30); GFR ESTIMATED > 60
[2020-12-23 05:53] LABS: BUN/CREATININE RATIO 15
[2020-12-23 05:55] LABS: ALANINE AMINOTRANSFERASE 9 U/L (0-55)
[2020-12-23 06:00] VITALS: BP 123/72
[2020-12-23] MEDS: predniSONE 10 MG TAB PO SCH (06:33)
--- NOTE | 2020-12-23 08:37 | PM&R Progress Note ---
Subjective HPI/CC On Admission Date Seen by Provider: Dec 23, 2020 Time Seen by Provider: 08:30 Subjective/Events-last exam 12/23/20: Pt voiding very well Fall yesterday on his buttocks No significant pain Bowels moved yesterday CT Scan was reviewed from Dr. Khan, the high resolution type and we talked about the bullae 12/22/20: No blood in urine now No pain urinating No PVR Less frequency Had a non-injury fall backwards today 12/21/20: Transferring well Ambulating very well Doing well overall Hematuria remains 12/20/20: Much improved ambulation Less hematuria Dysuria still BM+ Talked about COVID vaccine 12/19/20: Valdes was discontinued and hes going to urinate every hour Updated Dr. Marsh Bowels moved yesterday Conferred with Dr. Marsh at the bedside with the patient 12/18/20: Bowels are moving today Passed a clot in the urine today Hemorrhoid cream will be provided Catheter was removed today per Dr. Marsh 12/17/20: Catheter will be taken out tomorrow Has not required continuous bladder irrigation Bowels are moving pretty well Overall participating in therapy and getting stronger 12/16/20: Hgb 9.4 Getting ready to stand with walker and help Valdes Catheter still in place, will remove on Wednesday per urology Checked meds and labs 12/15/20: Doing well BM after suppository Valdes in place no hematuria Bed lamar for BM 12/14/20: No longer taking Belladonna supp Urine cleared TBI DC Improved overall Holding OAC 12/13/20: Dr Marsh assessed him to be doing well Slowing the CBI O2 2L/min wbc 11 Belladonna supp help his pain 12/12/20: s/p TURP Belladonna supp for pain Monitor labs Holding OAC Levaquin 500mg daily Appreciate Dr Marsh 12/10/20: TURP scheduled for tomorrow morning Receiving two units of blood in preparation for the surgery since there is blood loss during the surgery Remains on two liters of oxygen Overall feels like he is doing really well 12/09/20: Bowels moved after suppository yesterday Holding anticoagulation for TURP Hgb 8.7 s/p five doses of Venofer Overall feels pretty good 12/08/20: MRSA of sputum still present TURP Wed Holding OAC now for surgery Standing a bit on his own with sit to stand 12/07/20: Second sputum done and pending BM incontinent Hold Eliquis tomorrow in prep for TURP 2L/min O2 maintained Sit to stand is helpful 12/06/20/: Steady improvement Dr Pritchett Wednesday for toenail care Second sputum pending to get out of isolation BM today 12/05/20: BM today 2L/min BP low so will monitor closely Improved transfers Updated patient and his who was on the phone 12/04/20: Pt slept very well again Coughing up a little bit more sputum that does show MRSA and ESBL, will remain in isolation Valdes is back in Will have TURP on Wednesday, holding Eliquis on Wednesday Incontinence of bowels is noted Overall extremely improved 12/03/20: Discontinued catheter yesterday by Dr. 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 Up in chair today BM++ Good outlook O2 at 3L/min Increase O2 during therapies 11/29/20: No new issues Midline was placed now flushes maintained Much improved status Down to 1 L of oxygen Increased oxygen requirement with exercise Still with Valdes catheter in place Upright in wheelchair today Dramatic improvement 11/28/20: Slept a bit better Midline for Venofer will be placed Much improved status BSC today Valdes cath replaced 11/27/20: Pt remains on 1 liter per minute of oxygen Appears to be much improved today Cystoscope done today showing large prostate Proscar along with Flomax was initiated Cath was done and obtained 1000cc of urine Nystatin cream and powder will be initiated Overall much improved 11/26/20: Pt did not sleep last night due to urinary frequency Had to do straight in and out cath x4 last night Dr. Marsh will be updated Blood in the urine 1 liter of O2 now but will need a higher level when he is working out CT chest and ABG reviewed 11/25/20: ABG is pending from not being drawn yet CT of the chest will be performed, Dr. Schrader has been updated Bowels moved yesterday 11/24/20: Venofer IV started and I explained why I started that for him Will check CT scan of chest tomorrow and consult Dr Schrader Labs and ABG ordered as well Still very tachypneic with conversation and at rest Monitoring BP 2L/min 11/23/20: No orthostasis today Worked with PT OT BM++ O2 maintained 11/22/20: Hgb 8.6 today Feels better since IVF 500cc yesterday and changed cardiac meds by Dr Cisneros [place] was born and he is thrilled about that Valdes cath still in place Fecal incontinence noted RT left him without O2 since he was good BRIEFLY on room air after Nebs for 1 hour and spot checked and he was at 85% and he was very short of breath just resting 11/21/20: Had episode of hypotension 76/40 with symptoms when got to edge of bed so laid back down, Cardiology notified and given 500cc of IVF Patient is on a waiver due to COVID and hypoxia for slow therapy and only 120 minutes per day Cardizem CD 120mg now after changed by Dr Cisneros ECHO done Stopped Lasix Valdes cath remains in place Review of Systems General: Fatigue, Malaise Pulmonary: Dyspnea Neurological: Weakness Objective Exam Vital Signs Vital Signs Date Time Temp Pulse Resp B/P (MAP) Pulse Ox O2 Delivery O2 Flow Rate FiO2 12/23/20 17:15 37.4 70 20 115/65 (82) 96 Nasal Cannula 2.00 Capillary Refill : Less Than 3 Seconds General Appearance: No Apparent Distress, WD/WN, Chronically ill, Thin HEENT: PERRL/EOMI, Normal ENT Inspection, Pharynx Normal Neck: Full Range of Motion, Normal Inspection, Non Tender, Supple, Carotid Bruit Respiratory: Chest Non Tender, Lungs Clear, No Respiratory Distress, Accessory Muscle Use, Decreased Breath Sounds Cardiovascular: Regular Rate, Rhythm, No Edema, No Gallop, No JVD, No Murmur, Normal Peripheral Pulses Gastrointestinal: Normal Bowel Sounds, No Organomegaly, No Pulsatile Mass, Non Tender, Soft Back: Normal Inspection, No CVA Tenderness, No Vertebral Tenderness Extremity: Normal Capillary Refill, Normal Inspection, Normal Range of Motion, Non Tender, No Calf Tenderness, No Pedal Edema Neurologic/Psychiatric: Alert, Oriented x3, No Motor/Sensory Deficits, Normal Mood/Affect, Motor Weakness (generalized 2/5 lower extremities, 3/5 upper extremities) Skin: Normal Color, Warm/Dry Lymphatic: No Adenopathy Results/Procedures Lab Laboratory Tests 12/23/20 05:00 12/23/20 05:20 Patient resulted labs reviewed. FIM Transfers Therapy Code Descriptions/Definitions Functional [place] Measure: 0=Not Assessed/NA 4=Minimal Assistance 1=Total Assistance 5=Supervision or Setup 2=Maximal Assistance 6=Modified [place] 3=Moderate Assistance 7=Complete IndependenceSCALE: Activities may be completed with or without assistive devices. 4-Aihmtzpcbu-cwlsqzf completes the activity by him/herself with no assistance from a helper. 5-Set-up or Clean-up Assistance-helper sets up or cleans up; patient completes activity. [place] assists only prior to or following the activity. 4-Supervision or Touching Assistance-helper provides verbal cues and/or touching/steadying and/or contact guard assistance as patient completes activity. Assistance may be provided throughout the activity or intermittently. 3-Partial/Moderate Assistance-helper does LESS THAN HALF the effort. [place] lifts, holds or supports trunk or limbs, but provides less than half the effort. 2-Substantial/Maximal Assistance-helper does MORE THAN HALF the effort. [place] lifts or holds trunk or limbs and provides more than half the effort. 2-Yhynnnmes-rznzrt does ALL the effort. Patient does none of the effort to complete the activity. Or, the assistance of 2 or more helpers is required for the patient to complete the activity. If activity was not attempted, code reason: 7-Patient Refused. 9-Not Applicable-not attempted and the patient did not perform the activity before the current illness, exacerbation or injury. 10-Not Attempted due to Environmental Limitations-(lack of equipment, weather restraints, etc.). 88-Not Attempted due to Medical Conditions or Safety Concerns. Roll Left to Right (QC): 6 Sit to Lying (QC): 6 Sit to Stand (QC): 4 Chair/Vdn-hm-Lppns Xfer(QC): 4 Car Transfer (QC): 2 Gait Training Does the Patient Walk?: Yes Distance: 8" x4, 18', 18' & 28' Walk 10 feet (QC): 4 Walk 50 ft with 2 Turns(QC): 4 Walk 150 ft (QC): 88 Walking 10ft/uneven surface-QC: 88 Gait Persons Needed: 1 Gait Assistive Device: FWW Wheelchair Training Does the Pt Use a Wheelchair?: Yes Wheel 50 ft with 2 turns (QC): 5 Wheel 150 ft (QC): 5 Type of Wheelchair: Manual Stair Training 1 Step (curb) (QC): 88 4 Steps (QC): 88 12 Steps (QC): 88 Balance Picking up an Object (QC): 88 ADL-Treatment Eating (QC): 6 Oral Hygiene (QC): 6 Bathing Location: L Arm, R Arm, L Upper Leg, R Upper Leg, L Lower Leg (including foot), R Lower Leg (including foot), Chest, Abdomen, Perineal Area Shower/Bathe Self (QC): 6 Upper Body Dressing (QC): 5 Lower Body Dressing (QC): 4 On/Off Footwear (QC): 5 Toileting Hygiene (QC): 3 Toilet Transfer (QC): 4 Assessment/Plan Assessment and Plan Assess & Plan/Chief Complaint Assessment: Myopathy COVID-19 PNA Urinary retention Valdes cath in place Bowel incontinence Hypoxia O2 dependent BPH Frail Advanced age Sputum colonized with MRSA and ESBL Plan: IRF protocol but 120 minutes per day to accommodate hypoxia at activity [place] meds Melatonin at night 11/21/20: s/o IVF Monitor hypotension and hypoxia Appreciate Dr Cisneros ECHO done Add Remeron for sleep with Melatonin 11/22/20: No possibility of weaning O2 for now with this patient so needs on 21/06 and will update RT Increase activity 11/23/20: Maintain O2 Nebs Monitor BP 11/24/20: Venofer Labs and ABG and CT chest in am Dr Schrader consultation Maintain O2 Very fragile lungs 11/25/20: CT chest ABG Dr Schrader consultation 11/26/20: Dr Schrader appreciated Dr Marsh appreciated 11/27/20: Dr Marsh appreciated Monitor O2 11/28/20: Valdes cath in place Midline Venofer 11/29/20: Midline flushes Venofer Monitor closely Dramatic improvement 11/30/20: Dramatic improvement continues Monitor closely Increase O2 with therapy 12/01/20: Bowel incontinence could complicate DC plans Monitor urinary retention closely 12/02/20: Manage B/B incontinence Improved status Labs good 12/03/20: Improved insomnia Continue treatment B/B incontinence 12/04/20: TURP next Wed Hold OAC as of Wednesday Conferred with Dr Marsh and patient 12/05/20: Improved transfers Monitor closely O2 Incontinence management 12/06/20: Steady improvement TURP Wed Hold OAC as of Wednesday morning 12/07/20: Await second sputum Monitor closely O2 BM 12/08/20: TURP Wed Hold OAC Monitor closely Labs in am 12/09/20: TURP Wednesday Monitor closely 12/10/20: TURP tomorrow Monitor closely 2 units of blood today 12/12/20: Belladonna suppositories Monitor labs Hold OAC 12/13/20: Dr Marsh appreciated Pain control O2 Monitor closely 12/14/20: Monitor hematuria Pain control from TURP Continue therapy 12/15/20: BM regimen Monitor valdes cath Hold OAC 12/16/20: Ambulating Participating with therapy Valdes out tomorrow? 12/17/20: DC catheter tomorrow Monitor pain O2 wean 12/18/20: Monitor closely Dramatic improvement DC catheter 12/19/20: Improved overall Walking well Hematuria improved Voiding spontaneously 12/20/20: COVID vaccine discussed Monitor pain with urination Ambulating well 12/21/20: Monitor hematuria Fall risk Pain control 12/22/20: Fall noted today Monitor hematuria Doing well from TURP Reviewed notes from Dr Khan about the "hole" in his lung per patient 12/23/20: Monitor urination Increase stamina Patient has long standing lung issues prior to COVID (1) Myopathy (2) COVID-19 (3) Hypoxia (4) Urinary retention (5) Valdes catheter in place (6) BPH (benign prostatic hyperplasia) (7) Bowel incontinence (8) Supplemental oxygen dependent (9) Advanced age (10) Frailty BARB COLLINS DO Dec 23, 2020 08:37
--- NOTE | 2020-12-23 08:40 | Occupational Ther Daily Note ---
OT Current Status-Daily Note Subjective Pt alert, sitting in recliner. Pt agrees to therapy. Pt c/o soreness at R lower back, requested Tylenol, reported to nrsg. Mental Status/Objective Patient Orientation: Person, Place, Time, Situation Attachments: Oxygen (2L, 4L during shower) ADL-Treatment Pt agrees to shower. Pt transferred using FWW from recliner to [facility] (2x's), CGA. Pt able to manipulate clothing with CGA, assist to cleanse after BM. Pt transferred to w/c and propelled into bathroom to complete own oral care at sink. Pt then positioned w/c at shower and completed transfer into/out of shower, CGA. Pt utilized grabbar, hand held shower, shower bench and long handle sponge to complete shower. Pt cleansed and dried all areas sitting on bench except to stand with min A and cleanse buttocks by self. After set up, pt dressing upper body and footwear by self. Pt able to thread lower body clothing over feet then CGA in standing while pt hiked pants over hips. Pt then transferred into bed, completed bed mobility independently with bedrails. Therapy Code Descriptions/Definitions Functional [place] Measure: 0=Not Assessed/NA 4=Minimal Assistance 1=Total Assistance 5=Supervision or Setup 2=Maximal Assistance 6=Modified [place] 3=Moderate Assistance 7=Complete IndependenceSCALE: Activities may be completed with or without assistive devices. 4-Ncuplaxppi-krciujj completes the activity by him/herself with no assistance from a helper. 5-Set-up or Clean-up Assistance-helper sets up or cleans up; patient completes activity. [place] assists only prior to or following the activity. 4-Supervision or Touching Assistance-helper provides verbal cues and/or touching/steadying and/or contact guard assistance as patient completes activity. Assistance may be provided throughout the activity or intermittently. 3-Partial/Moderate Assistance-helper does LESS THAN HALF the effort. [place] lifts, holds or supports trunk or limbs, but provides less than half the effort. 2-Substantial/Maximal Assistance-helper does MORE THAN HALF the effort. [place] lifts or holds trunk or limbs and provides more than half the effort. 5-Itlqxysfi-fjcsut does ALL the effort. Patient does none of the effort to complete the activity. Or, the assistance of 2 or more helpers is required for the patient to complete the activity. If activity was not attempted, code reason: 7-Patient Refused. 9-Not Applicable-not attempted and the patient did not perform the activity before the current illness, exacerbation or injury. 10-Not Attempted due to Environmental Limitations-(lack of equipment, weather restraints, etc.). 88-Not Attempted due to Medical Conditions or Safety Concerns. Eating (QC): 6 (Pt able to set up and use regular utensils independently.) Oral Hygiene (QC): 6 Bathing Location: L Arm, R Arm, L Upper Leg, R Upper Leg, L Lower Leg (including foot), R Lower Leg (including foot), Chest, Abdomen, Buttocks (Min A to stabilize in standing), Perineal Area Shower/Bathe Self (QC): 3 Upper Body Dressing (QC): 5 Lower Body Dressing (QC): 4 On/Off Footwear: 5 Toileting Hygiene (QC): 3 Toilet Transfer (QC): 4 Other Treatment Pt able to complete B UE exercises with medium resistance theraband independently. Pt only completed 1 set 10 reps due to fatigue and SOA. After session, pt lying in bed with call light/phone in reach. All needs met in room. OT Short Term Goals Short Term Goals Time Frame: Dec 11, 2020 Shower/bathe self: 4 Upper body dressin Lower body dressin OT [employer] Nurse Goals Intermediate Goals Time Frame: Jan 10, 2021 Eating (QC): 6 Oral Hygiene (QC): 6 Toileting Hygiene (QC): 6 Shower/Bathe Self (QC): 6 Upper Body Dressing (QC): 6 Lower Body Dressing (QC): 6 On/Off Footwear (QC): 6 Additional Goals: 1-Demonstrate ADL Tasks, 2-Verbalize Understanding, 3- ImproveStrength/Leti 1=Demonstrate adherence to instructed precautions during ADL tasks. 2=Patient will verbalize/demonstrate understanding of assistive devices/modifications for ADL. 3=Patient will improve strength/tolerance for activity to enable patient to perform ADL's. OT Education/Plan Problem List/Assessment Assessment: Decreased Activ Tolerance, Impaired Funct Balance, Impaired Self- Care Skills Discharge Recommendations Plan/Recommendations: Continue POC Treatment Plan/Plan of Care Patient would benefit from OT for education, treatment and training to promote independence in ADL's, mobility, safety and/or upper extremity function for ADL's. Plan of Care: ADL Retraining, Functional Mobility, Group Exercise/Act as Ind, UE Funct Exercise/Act Treatment Duration: Dec 20, 2020 Frequency: Modified Program (IRF) Estimated Hrs Per Day: 1 hour per day Rehab Potential: Good Time/GCodes Start Time: 07:30 Stop Time: 09:00 Total Time Billed (hr/min): 90 Billed Treatment Time 1 visit-ADL 5 (80 min) EX 1 (10 min) VIOLET BACA Dec 23, 2020 08:40
--- NOTE | 2020-12-23 08:49 | Cardiology Progress Note ---
Subjective Date Seen by Provider: Dec 23, 2020 Time Seen by Provider: 08:49 Subjective/Events-last exam Patient with PT. Denies any chest pain, continues to c/o occasional episode of dizziness. Objective-Cardiology Exam Last Set of Vital Signs Vital Signs 12/23/20 12/23/20 06:00 09:56 Temp 36.6 Pulse 74 Resp 20 B/P (MAP) 123/72 (89) Pulse Ox 96 O2 Delivery Nasal Cannula O2 Flow Rate 2.00 Capillary Refill : Less Than 3 Seconds I&O Intake and Output 12/23/20 00:00 Intake Total 2250 ml Output Total 2350 ml Balance -100 ml Intake Oral 2250 ml Output Urine Total 2350 ml # Voids 1 # Bowel Movements 1 General: Alert, Oriented X3, Cooperative HEENT: Atraumatic, PERRLA Neck: Supple, No JVD, No Thyromegaly Lungs: Clear to Auscultation, Normal Air Movement Heart: Regular Rate, Normal S1, Normal S2, No Murmurs Abdomen: Normal Bowel Sounds, Soft, No Tenderness, No Hepatosplenomegaly, No Masses Extremities: No Clubbing, No Cyanosis, No Edema, Normal Pulses, No Tenderness/Swelling Skin: No Rashes, No Breakdown, No Significant Lesion Neuro: Normal Gait, Normal Speech, Normal Tone, Sensation Intact Psych/Mental Status: Mental Status NL, Mood NL Results Lab Laboratory Tests 12/23/20 05:00 12/23/20 05:20 A/P-Cardiology Admission Diagnosis PAF s/p acute respiratory failure Hypotension Myopathy Assessment/Plan PAF, currently sinus rhythm, planning to restart Eliquis. 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 Diuretics stopped on 11/21/20. Sildenafil reduced on 11/23/20 and stopped on 11/25/20. Lopressor held this morning. Urinary retention, s/p TURP, following with Dr. Marsh. +MRSA in sputum Patient was seen and evaluated with Brenda, examination performed, management plan was discussed, agree with the current scribed note, I made few changes to the note using Italic font Patient is laying down comfortably, denied any active pain No active bleeding at this time, we'll restart oral anticoagulation Clinical Quality Measures DVT/VTE Risk/Contraindication: Risk Factor Score Per Nursin RFS Level Per Nursing on Admit: 4+=Very High BRENDA MARCIAL Dec 23, 2020 8:49 am GIANCARLO BROWN MD Dec 23, 2020 5:15 pm
[2020-12-23] MEDS: MONTELUKAST 10 MG (SINGULAIR) TAB PO SCH (08:56)
[2020-12-23] MEDS: LORATADINE (CLARITIN) 10 MG TAB PO SCH (08:56)
[2020-12-23] MEDS: CYANOCOBALAMIN 1,000 MCG (VITAMIN B-12) TABLET PO SCH (08:56)
[2020-12-23] MEDS: LACTOBACILLUS ACIDOPHILUS (PROBIOTIC) CAPSULE PO SCH ×2 (08:56→21:07)
[2020-12-23] MEDS: TAMSULOSIN 0.4 MG (FLOMAX) CAP PO SCH ×2 (08:56→21:08)
[2020-12-23] MEDS: PANTOPRAZOLE 40 MG (PROTONIX) TAB PO SCH (08:56)
[2020-12-23] MEDS: FOLIC ACID 1 MG TAB PO SCH (08:57)
[2020-12-23] MEDS: ROFLUMILAST 500 MCG TAB (DALIRESP) PO SCH (08:57)
[2020-12-23] MEDS: PHENAZOPYRIDINE 100 MG (PYRIDIUM) TABLET PO SCH ×3 (08:57→17:48)
[2020-12-23] MEDS: FINASTERIDE (PROSCAR) 5 MG TAB PO SCH (08:57)
[2020-12-23] MEDS: meTOprolol TARTRATE 25 MG (LOPRESSOR) TABLET PO SCH ×2 (08:57→21:09)
[2020-12-23] MEDS: polyethylene glycoL POWDER 17 GM (MIRALAX) PACK PO SCH ×2 (08:58→21:05)
[2020-12-23] MEDS: SENNA W/DOCUSATE (SENOKOT S) TABLET PO SCH ×2 (09:22→21:08)
[2020-12-23] MEDS: MICONAZOLE 2% POWDER (DESENEX AF) 90 GM TOP SCH ×2 (09:23→21:11)
[2020-12-23] MEDS: NYSTATIN CREAM (MYCOSTATIN) 30 GM TUBE TP SCH ×3 (09:23→21:11)
[2020-12-23] MEDS: DOCUSATE SODIUM 100 MG (COLACE) CAP PO SCH ×2 (09:27→21:08)
[2020-12-23] MEDS: ADVAIR HFA 115/21 MCG INHALER 8 GM IH SCH ×2 (09:55→21:16)
[2020-12-23] MEDS: RT-ALBUTEROL/IPRATROPIUM 3 ML (DUONEB) VIAL IH SCH ×2 (09:55→21:15)
--- NOTE | 2020-12-23 11:01 | Physical Therapy Daily Note ---
PT Daily Note-Current Subjective Pt. agrees to Rx. States he had a fall in his room this weekend. States he is not really hurt except his back bilaterally is a little sore. Pain Location: No Pain Reported Mental Status Patient Orientation: Normal For Age Attachments: Oxygen (2L), Other-See Comments (mask while out of rm) Transfers SCALE: Activities may be completed with or without assistive devices. 4-Opffncrygd-epwujvw completes the activity by him/herself with no assistance from a helper. 5-Set-up or Clean-up Assistance-helper sets up or cleans up; patient completes activity. [place] assists only prior to or following the activity. 4-Supervision or Touching Assistance-helper provides verbal cues and/or touch ing/steadying and/or contact guard assistance as patient completes activity. Assistance may be provided throughout the activity or intermittently. 3-Partial/Moderate Assistance-helper does LESS THAN HALF the effort. [place] lifts, holds or supports trunk or limbs, but provides less than half the effort. 2-Substantial/Maximal Assistance-helper does MORE THAN HALF the effort. [place] lifts or holds trunk or limbs and provides more than half the effort. 6-Geqtfdket-lbmdgn does ALL the effort. Patient does none of the effort to complete the activity. Or, the assistance of 2 or more helpers is required for the patient to complete the activity. If activity was not attempted, code reason: 7-Patient Refused. 9-Not Applicable-not attempted and the patient did not perform the activity before the current illness, exacerbation or injury. 10-Not Attempted due to Environmental Limitations-(lack of equipment, weather restraints, etc.). 88-Not Attempted due to Medical Conditions or Safety Concerns. Weight Bearing Full Weight Bearing Full Weight Bearing Gait Training Does the Patient Walk?: Yes Walk 10 feet (QC): 4 Walk 50 ft with 2 Turns(QC): 4 Gait Persons Needed: 1 Gait Assistive Device: FWW Pt. comments on his feet still being numb. This PRACTICE ADMINISTRATOR donned his shoes for gait this AM with good results , Wheelchair Training Does the Pt Use a Wheelchair?: Yes Wheel 50 ft with 2 turns (QC): 6 Wheel 150 ft (QC): 6 Type of Wheelchair: Manual Exercises Supine Ex: Bridging, Ankle pumps, Quad Set, Rolling, Glut sets, Lower trunk rotation, Heel Slides, Short Arc Quads, Scooting, Straight leg raise, Hip abd/add Supine Reps: 15 Seated Therapy Exercises: Ankle pumps, Sit to stand Seated Reps: 10 NuStep Minutes: 10 NuStep Workload: 4 Treatments toileted with urgency for BM. Assessment Current Status: Good Progress good progress in all phases of Rx PT Short Term Goals Short Term Goals Time Frame: Nov 27, 2020 Roll Left & Right: 3 Sit to lyin Lying to sitting on side of be: 3 Sit to stand: 3 Chair/ptd-mk-ymxuj transfer: 3 Walk 10 feet: 3 PT Occupational Therapy Asst Goals Occupational Therapy Asst Goals PT Intermediate Goals Time Frame: Dec 11, 2020 Roll Left & Right (QC): 4 Sit to Lying (QC): 4 Lying-Sitting on Side/Bed(QC): 4 Sit to Stand (QC): 4 Chair/Rem-oy-Ckdhs Xfer(QC): 4 Toilet Transfer (QC): 4 Car Transfer (QC): 3 Does the Patient Walk: Yes Walk 10 feet (QC): 3 Walk 50ft with 2 Turns (QC): 3 Walk 150 ft (QC): 88 Walking 10ft on Uneven Surface: 3 1 Step (curb) (QC): 3 4 Steps (QC): 88 12 Steps (QC): 88 Picking up an Object (QC): 88 Wheel 50 feet with 2 turns (QC: 6 Wheel 150 feet: 6 PT Plan Treatment/Plan Treatment Plan: Continue Plan of Care Treatment Plan: Bed Mobility, Education, Functional Activity Leti, Functional Strength, Group Therapy, Gait, Safety, Therapeutic Exercise, Transfers Treatment Duration: Dec 11, 2020 Frequency: Modified Program (IRF) Estimated Hrs Per Day: 1 hour per day Patient and/or Family Agrees t: Yes Safety Risks/Education Patient Education: Gait Training, Transfer Techniques, Correct Positioning, W/C Management, Disease Process, Safety Issues Teaching Recipient: Patient Teaching Methods: Demonstration, Discussion Response to Teaching: Verbalize Understanding, Return Demonstration, Reinforcement Needed Time/GCodes Time In: 1015 Time Out: 1100 Total Billed Treatment Time: 45 Total Billed Treatment 1,GT10m,FA15m,EX20 ESSENCE ARRIAZA PRACTICE ADMINISTRATOR Dec 23, 2020 11:01
--- NOTE | 2020-12-23 12:13 | Progress Note - Urology ---
Progress Note-Urology Progress Notes/Assess & Plan Progress/Assessment & Plan VOIDING WELL. PVR WAS 90. URINE CLEAR Final Diagnosis RETENTION DENTON MA MD Dec 23, 2020 12:13
--- NOTE | 2020-12-23 14:25 | Physical Therapy Daily Note ---
PT Daily Note-Current Subjective Pt. agrees to Rx, wants to walk a little. Pain Location: No Pain Reported Mental Status Patient Orientation: Normal For Age Attachments: Oxygen Transfers SCALE: Activities may be completed with or without assistive devices. 1-Gvqwpaxstz-vjozlpa completes the activity by him/herself with no assistance from a helper. 5-Set-up or Clean-up Assistance-helper sets up or cleans up; patient completes activity. [place] assists only prior to or following the activity. 4-Supervision or Touching Assistance-helper provides verbal cues and/or touching/steadying and/or contact guard assistance as patient completes activity. Assistance may be provided throughout the activity or intermittently. 3-Partial/Moderate Assistance-helper does LESS THAN HALF the effort. [place] lifts, holds or supports trunk or limbs, but provides less than half the effort. 2-Substantial/Maximal Assistance-helper does MORE THAN HALF the effort. [place] lifts or holds trunk or limbs and provides more than half the effort. 8-Iqmwxkvyl-iepfjb does ALL the effort. Patient does none of the effort to complete the activity. Or, the assistance of 2 or more helpers is required for the patient to complete the activity. If activity was not attempted, code reason: 7-Patient Refused. 9-Not Applicable-not attempted and the patient did not perform the activity before the current illness, exacerbation or injury. 10-Not Attempted due to Environmental Limitations-(lack of equipment, weather restraints, etc.). 88-Not Attempted due to Medical Conditions or Safety Concerns. in out bed with HOB flat SBA Weight Bearing Full Weight Bearing Full Weight Bearing Gait Training Does the Patient Walk?: Yes Gait Assistive Device: FWW 25ft FWW min assist x2 with instruction in managing O2 tubing safely Exercises Supine Ex: Bridging, Ankle pumps, Quad Set, Rolling, Heel Slides, Short Arc Quads, Scooting, Straight leg raise, Hip abd/add Supine Reps: 15 Assessment Current Status: Good Progress PT Short Term Goals Short Term Goals Time Frame: Nov 27, 2020 Roll Left & Right: 3 Sit to lyin Lying to sitting on side of be: 3 Sit to stand: 3 Chair/mas-yp-evkwb transfer: 3 Walk 10 feet: 3 PT Choir Director Goals Choir Director Goals PT Custodial Goals Time Frame: Dec 11, 2020 Roll Left & Right (QC): 4 Sit to Lying (QC): 4 Lying-Sitting on Side/Bed(QC): 4 Sit to Stand (QC): 4 Chair/Ego-nl-Dgctl Xfer(QC): 4 Toilet Transfer (QC): 4 Car Transfer (QC): 3 Does the Patient Walk: Yes Walk 10 feet (QC): 3 Walk 50ft with 2 Turns (QC): 3 Walk 150 ft (QC): 88 Walking 10ft on Uneven Surface: 3 1 Step (curb) (QC): 3 4 Steps (QC): 88 12 Steps (QC): 88 Picking up an Object (QC): 88 Wheel 50 feet with 2 turns (QC: 6 Wheel 150 feet: 6 PT Plan Treatment/Plan Treatment Plan: Continue Plan of Care Treatment Plan: Bed Mobility, Education, Functional Activity Leti, Functional Strength, Group Therapy, Gait, Safety, Therapeutic Exercise, Transfers Treatment Duration: Dec 11, 2020 Frequency: Modified Program (IRF) Estimated Hrs Per Day: 1 hour per day Patient and/or Family Agrees t: Yes Time/GCodes Time In: 1330 Time Out: 1400 Total Billed Treatment Time: 30 Total Billed Treatment 1,EX15m,GT15m ESSENCE ARRIAZA RE[employer] SERVICE INSPECTOR Dec 23, 2020 14:25
--- NOTE | 2020-12-23 15:41 | NUR ---
CM/SS CONCURRENT DOCUMENTATION Brief visit with patient, his is coming tomorrow for education/observation of current performance and care needs. Patient is very pleased and excited to see her!
[2020-12-23 17:15] VITALS: BP 115/65
[2020-12-23] MEDS: MELATONIN 10 MG TABLET PO SCH (21:08)
[2020-12-23] MEDS: APIXABAN 5 MG (ELIQUIS) TABLET PO SCH (21:08)
[2020-12-23] MEDS: MIRTAZAPINE 15 MG (REMERON) TAB PO SCH (21:08)
[2020-12-24] MEDS: ACETAMINOPHEN 325 MG TABLET PO PRN ×3 (00:27→21:09)
[2020-12-24 06:01] VITALS: BP 120/71
[2020-12-24] MEDS: predniSONE 10 MG TAB PO SCH (06:34)
--- NOTE | 2020-12-24 08:20 | Cardiology Progress Note ---
Subjective Date Seen by Provider: Dec 24, 2020 Time Seen by Provider: 08:19 Subjective/Events-last exam Patient asleep in bed, easily awakens to answer questions. Denies any chest pain or palpitations. Review of Systems General: No Chills, No Night Sweats; Fatigue, Malaise; No Appetite, No Other HEENT: No Head Aches, No Visual Changes, No Eye Pain, No Ear Pain, No Dysphasia, No Sinus Congestion, No Post Nasal Drip, No Sore Throat, No Other Pulmonary: No Cough, No Pleuritic Chest Pain, No Other Cardiovascular: No: Chest Pain, Palpitations, Orthopnea, Paroxysmal Noc. Dyspnea, Edema, Lt Headedness, Other Objective-Cardiology Exam Last Set of Vital Signs Vital Signs 12/24/20 06:01 Temp 36.8 Pulse 73 Resp 20 B/P (MAP) 120/71 (87) Pulse Ox 97 O2 Delivery Nasal Cannula O2 Flow Rate 2.00 Capillary Refill : Less Than 3 Seconds I&O Intake and Output 12/24/20 00:00 Intake Total 2450 ml Output Total 2400 ml Balance 50 ml Intake Oral 2450 ml Output Urine Total 2400 ml # Bowel Movements 1 General: Alert, Oriented X3, Cooperative HEENT: Atraumatic, PERRLA Neck: Supple, No JVD, No Thyromegaly Lungs: Clear to Auscultation, Normal Air Movement Heart: Regular Rate, Normal S1, Normal S2, No Murmurs Abdomen: Normal Bowel Sounds, Soft, No Tenderness, No Hepatosplenomegaly, No Masses Extremities: No Clubbing, No Cyanosis, No Edema, Normal Pulses, No Tenderness/Swelling Skin: No Rashes, No Breakdown, No Significant Lesion Neuro: Normal Gait, Normal Speech, Normal Tone, Sensation Intact Psych/Mental Status: Mental Status NL, Mood NL A/P-Cardiology Admission Diagnosis PAF s/p acute respiratory failure Hypotension Myopathy Assessment/Plan PAF, currently sinus rhythm, Eliquis restarted yesterday. 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 Urinary retention, s/p TURP, following with Dr. Marsh. +MRSA in sputum Patient was seen and evaluated with Brenda, examination performed, management plan was discussed, agree with the current scribed note, I made few changes to the note using Italic font Patient is tolerating oral anticoagulation well. No complain Continue on current medications and monitor Clinical Quality Measures DVT/VTE Risk/Contraindication: Risk Factor Score Per Nursin RFS Level Per Nursing on Admit: 4+=Very High BRENDA MARCIAL Dec 24, 2020 08:20 GIANCARLO BROWN MD Dec 24, 2020 12:28
[2020-12-24 08:30] VITALS: BP 100/63
--- NOTE | 2020-12-24 08:31 | PM&R Progress Note ---
Subjective HPI/CC On Admission Date Seen by Provider: Dec 24, 2020 Time Seen by Provider: 12:50 Subjective/Events-last exam 12/24/20: Bowels moved yesterday Tylenol ordered No falls Feels like he is doing pretty well Met at bedside today for family training 12/23/20: Pt voiding very well Fall yesterday on his buttocks No significant pain Bowels moved yesterday CT Scan was reviewed from Dr. Khan, the high resolution type and we talked about the bullae 12/22/20: No blood in urine now No pain urinating No PVR Less frequency Had a non-injury fall backwards today 12/21/20: Transferring well Ambulating very well Doing well overall Hematuria remains 12/20/20: Much improved ambulation Less hematuria Dysuria still BM+ Talked about COVID vaccine 12/19/20: Valdes was discontinued and hes going to urinate every hour Updated Dr. Marsh Bowels moved yesterday Conferred with Dr. Marsh at the bedside with the patient 12/18/20: Bowels are moving today Passed a clot in the urine today Hemorrhoid cream will be provided Catheter was removed today per Dr. Marsh 12/17/20: Catheter will be taken out tomorrow Has not required continuous bladder irrigation Bowels are moving pretty well Overall participating in therapy and getting stronger 12/16/20: Hgb 9.4 Getting ready to stand with walker and help Valdes Catheter still in place, will remove on Wednesday per urology Checked meds and labs 12/15/20: Doing well BM after suppository Valdes in place no hematuria Bed lamar for BM 12/14/20: No longer taking Belladonna supp Urine cleared TBI DC Improved overall Holding OAC 12/13/20: Dr Marsh assessed him to be doing well Slowing the CBI O2 2L/min wbc 11 Belladonna supp help his pain 12/12/20: s/p TURP Belladonna supp for pain Monitor labs Holding OAC Levaquin 500mg daily Appreciate Dr Marsh 12/10/20: TURP scheduled for tomorrow morning Receiving two units of blood in preparation for the surgery since there is blood loss during the surgery Remains on two liters of oxygen Overall feels like he is doing really well 12/09/20: Bowels moved after suppository yesterday Holding anticoagulation for TURP Hgb 8.7 s/p five doses of Venofer Overall feels pretty good 12/08/20: MRSA of sputum still present TURP Wed Holding OAC now for surgery Standing a bit on his own with sit to stand 12/07/20: Second sputum done and pending BM incontinent Hold Eliquis tomorrow in prep for TURP 2L/min O2 maintained Sit to stand is helpful 12/06/20/: Steady improvement Dr Pritchett Wednesday for toenail care Second sputum pending to get out of isolation BM today 12/05/20: BM today 2L/min BP low so will monitor closely Improved transfers Updated patient and his who was on the phone 12/04/20: Pt slept very well again Coughing up a little bit more sputum that does show MRSA and ESBL, will remain in isolation Valdes is back in Will have TURP on Wednesday, holding Eliquis on Wednesday Incontinence of bowels is noted Overall extremely improved 12/03/20: Discontinued catheter yesterday by Dr. 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 Up in chair today BM++ Good outlook O2 at 3L/min Increase O2 during therapies 11/29/20: No new issues Midline was placed now flushes maintained Much improved status Down to 1 L of oxygen Increased oxygen requirement with exercise Still with Valdes catheter in place Upright in wheelchair today Dramatic improvement 11/28/20: Slept a bit better Midline for Venofer will be placed Much improved status BSC today Valdes cath replaced 11/27/20: Pt remains on 1 liter per minute of oxygen Appears to be much improved today Cystoscope done today showing large prostate Proscar along with Flomax was initiated Cath was done and obtained 1000cc of urine Nystatin cream and powder will be initiated Overall much improved 11/26/20: Pt did not sleep last night due to urinary frequency Had to do straight in and out cath x4 last night Dr. Marsh will be updated Blood in the urine 1 liter of O2 now but will need a higher level when he is working out CT chest and ABG reviewed 11/25/20: ABG is pending from not being drawn yet CT of the chest will be performed, Dr. Schrader has been updated Bowels moved yesterday 11/24/20: Venofer IV started and I explained why I started that for him Will check CT scan of chest tomorrow and consult Dr Schrader Labs and ABG ordered as well Still very tachypneic with conversation and at rest Monitoring BP 2L/min 11/23/20: No orthostasis today Worked with PT OT BM++ O2 maintained 11/22/20: Hgb 8.6 today Feels better since IVF 500cc yesterday and changed cardiac meds by Dr Cisneros [place] was born and he is thrilled about that Valdes cath still in place Fecal incontinence noted RT left him without O2 since he was good BRIEFLY on room air after Nebs for 1 hour and spot checked and he was at 85% and he was very short of breath just resting 11/21/20: Had episode of hypotension 76/40 with symptoms when got to edge of bed so laid back down, Cardiology notified and given 500cc of IVF Patient is on a waiver due to COVID and hypoxia for slow therapy and only 120 minutes per day Cardizem CD 120mg now after changed by Dr Cisneros ECHO done Stopped Lasix Valdes cath remains in place Review of Systems General: Fatigue, Malaise Pulmonary: Dyspnea Objective Exam Vital Signs Vital Signs Date Time Temp Pulse Resp B/P (MAP) Pulse Ox O2 Delivery O2 Flow Rate FiO2 12/24/20 20:10 Nasal Cannula 2.00 12/24/20 18:16 36.8 85 16 108/74 (85) 98 Capillary Refill : Less Than 3 Seconds General Appearance: No Apparent Distress, WD/WN, Chronically ill, Thin HEENT: PERRL/EOMI, Normal ENT Inspection, Pharynx Normal Neck: Full Range of Motion, Normal Inspection, Non Tender, Supple, Carotid Bruit Respiratory: Chest Non Tender, Lungs Clear, No Respiratory Distress, Accessory Muscle Use, Decreased Breath Sounds Cardiovascular: Regular Rate, Rhythm, No Edema, No Gallop, No JVD, No Murmur, Normal Peripheral Pulses Gastrointestinal: Normal Bowel Sounds, No Organomegaly, No Pulsatile Mass, Non Tender, Soft Back: Normal Inspection, No CVA Tenderness, No Vertebral Tenderness Extremity: Normal Capillary Refill, Normal Inspection, Normal Range of Motion, Non Tender, No Calf Tenderness, No Pedal Edema Neurologic/Psychiatric: Alert, Oriented x3, No Motor/Sensory Deficits, Normal Mood/Affect, Motor Weakness (generalized 2/5 lower extremities, 3/5 upper extremities) Skin: Normal Color, Warm/Dry Lymphatic: No Adenopathy Results/Procedures Lab Patient resulted labs reviewed. FIM Transfers Therapy Code Descriptions/Definitions Functional [place] Measure: 0=Not Assessed/NA 4=Minimal Assistance 1=Total Assistance 5=Supervision or Setup 2=Maximal Assistance 6=Modified [place] 3=Moderate Assistance 7=Complete IndependenceSCALE: Activities may be completed with or without assistive devices. 4-Ssbodybtje-tzcvvfb completes the activity by him/herself with no assistance from a helper. 5-Set-up or Clean-up Assistance-helper sets up or cleans up; patient completes activity. [place] assists only prior to or following the activity. 4-Supervision or Touching Assistance-helper provides verbal cues and/or touching/steadying and/or contact guard assistance as patient completes activity. Assistance may be provided throughout the activity or intermittently. 3-Partial/Moderate Assistance-helper does LESS THAN HALF the effort. [place] lifts, holds or supports trunk or limbs, but provides less than half the effort. 2-Substantial/Maximal Assistance-helper does MORE THAN HALF the effort. [place] lifts or holds trunk or limbs and provides more than half the effort. 9-Uciktnnhz-lwilqm does ALL the effort. Patient does none of the effort to complete the activity. Or, the assistance of 2 or more helpers is required for the patient to complete the activity. If activity was not attempted, code reason: 7-Patient Refused. 9-Not Applicable-not attempted and the patient did not perform the activity before the current illness, exacerbation or injury. 10-Not Attempted due to Environmental Limitations-(lack of equipment, weather restraints, etc.). 88-Not Attempted due to Medical Conditions or Safety Concerns. Roll Left to Right (QC): 6 Sit to Lying (QC): 6 Sit to Stand (QC): 4 Chair/Tqr-hl-Ubwyw Xfer(QC): 4 Car Transfer (QC): 2 Gait Training Does the Patient Walk?: Yes Distance: 8" x4, 18', 18' & 28' Walk 10 feet (QC): 4 Walk 50 ft with 2 Turns(QC): 4 Walk 150 ft (QC): 88 Walking 10ft/uneven surface-QC: 88 Gait Persons Needed: 1 Gait Assistive Device: FWW Wheelchair Training Does the Pt Use a Wheelchair?: Yes Wheel 50 ft with 2 turns (QC): 6 Wheel 150 ft (QC): 6 Type of Wheelchair: Manual Stair Training 1 Step (curb) (QC): 88 4 Steps (QC): 88 12 Steps (QC): 88 Balance Picking up an Object (QC): 88 ADL-Treatment Eating (QC): 6 (Pt able to set up and use regular utensils independently.) Oral Hygiene (QC): 6 Bathing Location: L Arm, R Arm, L Upper Leg, R Upper Leg, L Lower Leg (including foot), R Lower Leg (including foot), Chest, Abdomen, Buttocks (Min A to stabilize in standing), Perineal Area Shower/Bathe Self (QC): 3 Upper Body Dressing (QC): 5 Lower Body Dressing (QC): 4 On/Off Footwear (QC): 5 Toileting Hygiene (QC): 3 Toilet Transfer (QC): 4 Assessment/Plan Assessment and Plan Assess & Plan/Chief Complaint Assessment: Myopathy COVID-19 PNA Urinary retention Valdes cath in place Bowel incontinence Hypoxia O2 dependent BPH Frail Advanced age Sputum colonized with MRSA and ESBL Plan: IRF protocol but 120 minutes per day to accommodate hypoxia at activity Echo meds Melatonin at night 11/21/20: s/o IVF Monitor hypotension and hypoxia Appreciate Dr Cisneros ECHO done Add Remeron for sleep with Melatonin 11/22/20: No possibility of weaning O2 for now with this patient so needs on 21/06 and will update RT Increase activity 11/23/20: Maintain O2 Nebs Monitor BP 11/24/20: Venofer Labs and ABG and CT chest in am Dr Schrader consultation Maintain O2 Very fragile lungs 11/25/20: CT chest ABG Dr Schrader consultation 11/26/20: Dr Schrader appreciated Dr Marsh appreciated 11/27/20: Dr Marsh appreciated Monitor O2 11/28/20: Valdes cath in place Midline Venofer 11/29/20: Midline flushes Venofer Monitor closely Dramatic improvement 11/30/20: Dramatic improvement continues Monitor closely Increase O2 with therapy 12/01/20: Bowel incontinence could complicate DC plans Monitor urinary retention closely 12/02/20: Manage B/B incontinence Improved status Labs good 12/03/20: Improved insomnia Continue treatment B/B incontinence 12/04/20: TURP next Wed Hold OAC as of Wednesday Conferred with Dr Marsh and patient 12/05/20: Improved transfers Monitor closely O2 Incontinence management 12/06/20: Steady improvement TURP Wed Hold OAC as of Wednesday morning 12/07/20: Await second sputum Monitor closely O2 BM 12/08/20: TURP Wed Hold OAC Monitor closely Labs in am 12/09/20: TURP Wednesday Monitor closely 12/10/20: TURP tomorrow Monitor closely 2 units of blood today 12/12/20: Belladonna suppositories Monitor labs Hold OAC 12/13/20: Dr Marsh appreciated Pain control O2 Monitor closely 12/14/20: Monitor hematuria Pain control from TURP Continue therapy 12/15/20: BM regimen Monitor valdes cath Hold OAC 12/16/20: Ambulating Participating with therapy Valdes out tomorrow? 12/17/20: DC catheter tomorrow Monitor pain O2 wean 12/18/20: Monitor closely Dramatic improvement DC catheter 12/19/20: Improved overall Walking well Hematuria improved Voiding spontaneously 12/20/20: COVID vaccine discussed Monitor pain with urination Ambulating well 12/21/20: Monitor hematuria Fall risk Pain control 12/22/20: Fall noted today Monitor hematuria Doing well from TURP Reviewed notes from Dr Khan about the "hole" in his lung per patient 12/23/20: Monitor urination Increase stamina Patient has long standing lung issues prior to COVID 12/24/20: Monitor urination Increase ambulation Family training (1) Myopathy (2) COVID-19 (3) Hypoxia (4) Urinary retention (5) Valdes catheter in place (6) BPH (benign prostatic hyperplasia) (7) Bowel incontinence (8) Supplemental oxygen dependent (9) Advanced age (10) Frailty BARB COLLINS DO Dec 24, 2020 08:31
[2020-12-24] MEDS: FOLIC ACID 1 MG TAB PO SCH (08:52)
[2020-12-24] MEDS: TAMSULOSIN 0.4 MG (FLOMAX) CAP PO SCH ×2 (08:52→21:00)
[2020-12-24] MEDS: FINASTERIDE (PROSCAR) 5 MG TAB PO SCH (08:52)
[2020-12-24] MEDS: CYANOCOBALAMIN 1,000 MCG (VITAMIN B-12) TABLET PO SCH (08:52)
[2020-12-24] MEDS: LACTOBACILLUS ACIDOPHILUS (PROBIOTIC) CAPSULE PO SCH ×2 (08:53→20:59)
[2020-12-24] MEDS: meTOprolol TARTRATE 25 MG (LOPRESSOR) TABLET PO SCH ×2 (08:53→21:00)
[2020-12-24] MEDS: LORATADINE (CLARITIN) 10 MG TAB PO SCH (08:54)
[2020-12-24] MEDS: MONTELUKAST 10 MG (SINGULAIR) TAB PO SCH (08:55)
[2020-12-24] MEDS: APIXABAN 5 MG (ELIQUIS) TABLET PO SCH ×2 (08:55→21:00)
[2020-12-24] MEDS: SENNA W/DOCUSATE (SENOKOT S) TABLET PO SCH ×2 (08:55→21:00)
[2020-12-24] MEDS: ROFLUMILAST 500 MCG TAB (DALIRESP) PO SCH (08:55)
[2020-12-24] MEDS: DOCUSATE SODIUM 100 MG (COLACE) CAP PO SCH ×2 (08:56→20:59)
[2020-12-24] MEDS: PHENAZOPYRIDINE 100 MG (PYRIDIUM) TABLET PO SCH ×3 (08:56→18:33)
[2020-12-24] MEDS: PANTOPRAZOLE 40 MG (PROTONIX) TAB PO SCH (08:56)
[2020-12-24] MEDS: NYSTATIN CREAM (MYCOSTATIN) 30 GM TUBE TP SCH ×3 (08:57→21:00)
[2020-12-24] MEDS: MICONAZOLE 2% POWDER (DESENEX AF) 90 GM TOP SCH ×2 (08:58→21:00)
[2020-12-24] MEDS: polyethylene glycoL POWDER 17 GM (MIRALAX) PACK PO SCH ×2 (09:00→20:53)
[2020-12-24] MEDS: RT-ALBUTEROL/IPRATROPIUM 3 ML (DUONEB) VIAL IH SCH ×2 (09:15→18:48)
[2020-12-24] MEDS: ADVAIR HFA 115/21 MCG INHALER 8 GM IH SCH ×2 (09:17→18:48)
--- NOTE | 2020-12-24 10:02 | Occupational Ther Daily Note ---
OT Current Status-Daily Note Subjective Pt alert, lying in bed. Pt agrees to therapy. No c/o pain at this time. Pt coming in today for family training. Mental Status/Objective Patient Orientation: Person, Place, Time, Situation Attachments: Oxygen (2L at rest, 4L with activity) ADL-Treatment Pt declined showering. Supine to EOB, independent. SPT from EOB to w/c, SBA. Propelled self into bathroom to complete oral care and grooming, independent. After set up, pt dressed upper body by self. Pt requested to use BS. SBA for SPT from w/c to [facility]. CGA in stance while pt manipulated own clothing. After voiding, pt able to stand with CGA to cleanse tati area/buttocks. Due to shoes being tight fitting, min A to don shoes. Pt transferred to/from [facility] x2. Pt took increased time to complete tasks due to SOA and lengthy time to recover air. Therapy Code Descriptions/Definitions Functional [place] Measure: 0=Not Assessed/NA 4=Minimal Assistance 1=Total Assistance 5=Supervision or Setup 2=Maximal Assistance 6=Modified [place] 3=Moderate Assistance 7=Complete IndependenceSCALE: Activities may be completed with or without assistive devices. 4-Gczocmcruv-bhfzsgq completes the activity by him/herself with no assistance from a helper. 5-Set-up or Clean-up Assistance-helper sets up or cleans up; patient completes activity. [place] assists only prior to or following the activity. 4-Supervision or Touching Assistance-helper provides verbal cues and/or touching/steadying and/or contact guard assistance as patient completes activity. Assistance may be provided throughout the activity or intermittently. 3-Partial/Moderate Assistance-helper does LESS THAN HALF the effort. [place] lifts, holds or supports trunk or limbs, but provides less than half the effort. 2-Substantial/Maximal Assistance-helper does MORE THAN HALF the effort. [place] lifts or holds trunk or limbs and provides more than half the effort. 3-Zvatmtqkc-mgunna does ALL the effort. Patient does none of the effort to complete the activity. Or, the assistance of 2 or more helpers is required for the patient to complete the activity. If activity was not attempted, code reason: 7-Patient Refused. 9-Not Applicable-not attempted and the patient did not perform the activity before the current illness, exacerbation or injury. 10-Not Attempted due to Environmental Limitations-(lack of equipment, weather restraints, etc.). 88-Not Attempted due to Medical Conditions or Safety Concerns. Oral Hygiene (QC): 6 Upper Body Dressing (QC): 5 Lower Body Dressing (QC): 4 On/Off Footwear: 3 Toileting Hygiene (QC): 4 Toilet Transfer (QC): 4 Other Treatment Co-treat with PT [id number] for family training, skilled instructions and modifications required for education of family and pt's mobility, decreased activity tolerance and oxygen need with mobility. PT focusing on transfers, mobility and ambulation while OT focusing on ADLs, B UE placement during mob ility and functional transfers. See PT note for ambulation progress. Pt able to demonstrate independence with supine <--> EOB on mat table. Pt requested to BSC during family training session. SBA to CGA for transfer on/off BSC. CGA while pt manipulated clothing and cleansed self after toileting. Pt fatigues quickly and requires lengthy recovery break. After session, pt lying in bed with call light/phone in reach. All needs met in room. OT Short Term Goals Short Term Goals Time Frame: Dec 11, 2020 Shower/bathe self: 4 Upper body dressin Lower body dressin OT Hydraulic Repairer Goals Hydraulic Repairer Goals Time Frame: Jan 10, 2021 Eating (QC): 6 Oral Hygiene (QC): 6 Toileting Hygiene (QC): 6 Shower/Bathe Self (QC): 6 Upper Body Dressing (QC): 6 Lower Body Dressing (QC): 6 On/Off Footwear (QC): 6 Additional Goals: 1-Demonstrate ADL Tasks, 2-Verbalize Understanding, 3- ImproveStrength/Leti 1=Demonstrate adherence to instructed precautions during ADL tasks. 2=Patient will verbalize/demonstrate understanding of assistive devices/modifications for ADL. 3=Patient will improve strength/tolerance for activity to enable patient to perform ADL's. OT Education/Plan Problem List/Assessment Assessment: Decreased Activ Tolerance, Decreased UE Strength, Impaired Funct Balance, Impaired Self-Care Skills Discharge Recommendations Plan/Recommendations: Continue POC Treatment Plan/Plan of Care Patient would benefit from OT for education, treatment and training to promote independence in ADL's, mobility, safety and/or upper extremity function for ADL's. Plan of Care: ADL Retraining, Functional Mobility, Group Exercise/Act as Ind, UE Funct Exercise/Act Treatment Duration: Dec 20, 2020 Frequency: Modified Program (IRF) Estimated Hrs Per Day: 1 hour per day Rehab Potential: Good Time/GCodes Start Time: 09:00 Stop Time: 11:00 Total Time Billed (hr/min): 120 Billed Treatment Time 1 visit-ADL 4 (60 min) FA 4 (60 min) Co-treat with PT [id number], individual [id number] VIOLET BACA Dec 24, 2020 10:02
--- NOTE | 2020-12-24 11:05 | Physical Therapy Daily Note ---
PT Daily Note-Current Subjective Pt sitting in [facility] upon arrival. Pt agrees to PT/OT co-treat for Family Training as Sp is present. Pain Location: No Pain Reported Mental Status Patient Orientation: Person, Place, Time, Situation Attachments: Oxygen (2L at rest & 4L during tx and any exertion) Transfers SCALE: Activities may be completed with or without assistive devices. 5-Rbbmjiuzql-jjxwzto completes the activity by him/herself with no assistance from a helper. 5-Set-up or Clean-up Assistance-helper sets up or cleans up; patient completes activity. [place] assists only prior to or following the activity. 4-Supervision or Touching Assistance-helper provides verbal cues and/or touching/steadying and/or contact guard assistance as patient completes activity. Assistance may be provided throughout the activity or intermittently. 3-Partial/Moderate Assistance-helper does LESS THAN HALF the effort. [place] lifts, holds or supports trunk or limbs, but provides less than half the effort. 2-Substantial/Maximal Assistance-helper does MORE THAN HALF the effort. [place] lifts or holds trunk or limbs and provides more than half the effort. 5-Uiamhbhzs-nhiylq does ALL the effort. Patient does none of the effort to complete the activity. Or, the assistance of 2 or more helpers is required for the patient to complete the activity. If activity was not attempted, code reason: 7-Patient Refused. 9-Not Applicable-not attempted and the patient did not perform the activity before the current illness, exacerbation or injury. 10-Not Attempted due to Environmental Limitations-(lack of equipment, weather restraints, etc.). 88-Not Attempted due to Medical Conditions or Safety Concerns. Sit to Lying (QC): 5 Lying to Sitting/Side of Bed(Q: 5 Sit to Stand (QC): 4 Chair/Gvl-of-Dgomz Xfer(QC): 4 Toilet Transfer (QC): 4 Weight Bearing Full Weight Bearing Full Weight Bearing Gait Training Does the Patient Walk?: Yes Distance: 36' & 50+' Walk 10 feet (QC): 4 Walk 50 ft with 2 Turns(QC): 4 Gait Persons Needed: 1 Gait Assistive Device: FWW Wheelchair Training Does the Pt Use a Wheelchair?: Yes Wheel 50 ft with 2 turns (QC): 6 Wheel 150 ft (QC): 6 Type of Wheelchair: Manual Treatments Co-treat with PT [id number] for family training, skilled instructions and modifications required for education of family and pt's mobility, decreased activity tolerance and oxygen need with mobility. PT focusing on transfers, mobility and ambulation while OT focusing on ADLs, B UE placement during m obility and functional transfers. See PT note for ambulation progress. Pt able to demonstrate independence with supine <--> EOB on mat table. Pt requested to BSC during family training session. SBA to CGA for transfer on/off BSC. CGA while pt manipulated clothing and cleansed self after toileting. Pt fatigues quickly and requires lengthy recovery break. After session, pt lying in bed with call light/phone in reach. All needs met in room. Assessment Current Status: Good Progress Pt continues to fatigue with upright activities although has gained strength and activity tolerance as well as independence. Continues to focus on energy conservation and pursed lip breathing. PT Short Term Goals Short Term Goals Time Frame: Nov 27, 2020 Roll Left & Right: 3 Sit to lyin Lying to sitting on side of be: 3 Sit to stand: 3 Chair/iik-if-dfhov transfer: 3 Walk 10 feet: 3 PT Shelter Goals Shelter Goals PT Configuration Specialist Goals Time Frame: Dec 11, 2020 Roll Left & Right (QC): 4 Sit to Lying (QC): 4 Lying-Sitting on Side/Bed(QC): 4 Sit to Stand (QC): 4 Chair/Pvp-ba-Lqqst Xfer(QC): 4 Toilet Transfer (QC): 4 Car Transfer (QC): 3 Does the Patient Walk: Yes Walk 10 feet (QC): 3 Walk 50ft with 2 Turns (QC): 3 Walk 150 ft (QC): 88 Walking 10ft on Uneven Surface: 3 1 Step (curb) (QC): 3 4 Steps (QC): 88 12 Steps (QC): 88 Picking up an Object (QC): 88 Wheel 50 feet with 2 turns (QC: 6 Wheel 150 feet: 6 PT Plan Problem List Problem List: Activity Tolerance Treatment/Plan Treatment Plan: Continue Plan of Care Treatment Plan: Bed Mobility, Education, Functional Activity Leti, Functional Strength, Group Therapy, Gait, Safety, Therapeutic Exercise, Transfers Treatment Duration: Dec 11, 2020 Frequency: Modified Program (IRF) Estimated Hrs Per Day: 1 hour per day Patient and/or Family Agrees t: Yes Safety Risks/Education Patient Education: Gait Training, Transfer Techniques, Correct Positioning, Safety Issues Teaching Recipient: Patient, Significant Other Teaching Methods: Demonstration, Discussion Response to Teaching: Verbalize Understanding Time/GCodes Time In: 1000 Time Out: 1100 Total Billed Treatment Time: 60 Total Billed Treatment 1, WCH (15m), EX (15m) & FA x2 (30m) KARYN BAKER BRAND REPRESENTATIVE Dec 24, 2020 11:05
--- NOTE | 2020-12-24 14:12 | Physical Therapy Daily Note ---
PT Daily Note-Current Subjective Pt laying Supine in bed w/HOB raised. SP present. Pt agrees to PT. Pain Location: No Pain Reported Mental Status Patient Orientation: Person, Place, Time, Situation Attachments: Oxygen (2L at rest & 4L with tx) Transfers SCALE: Activities may be completed with or without assistive devices. 0-Hlfnkwgqtw-uxmdese completes the activity by him/herself with no assistance from a helper. 5-Set-up or Clean-up Assistance-helper sets up or cleans up; patient completes activity. [place] assists only prior to or following the activity. 4-Supervision or Touching Assistance-helper provides verbal cues and/or touching/steadying and/or contact guard assistance as patient completes activity. Assistance may be provided throughout the activity or intermittently. 3-Partial/Moderate Assistance-helper does LESS THAN HALF the effort. [place] lifts, holds or supports trunk or limbs, but provides less than half the effort. 2-Substantial/Maximal Assistance-helper does MORE THAN HALF the effort. [place] lifts or holds trunk or limbs and provides more than half the effort. 9-Duuurfpnr-cgjgwg does ALL the effort. Patient does none of the effort to complete the activity. Or, the assistance of 2 or more helpers is required for the patient to complete the activity. If activity was not attempted, code reason: 7-Patient Refused. 9-Not Applicable-not attempted and the patient did not perform the activity before the current illness, exacerbation or injury. 10-Not Attempted due to Environmental Limitations-(lack of equipment, weather restraints, etc.). 88-Not Attempted due to Medical Conditions or Safety Concerns. Weight Bearing Full Weight Bearing Full Weight Bearing Exercises Supine Ex: Ankle pumps, Quad Set, Glut sets, Heel Slides, Short Arc Quads, Straight leg raise, Hip abd/add Supine Reps: 15 Seated Therapy Exercises: Ankle pumps, Long arc quads, Hip flexion, Kicking activity Seated Reps: 15 Treatments FLEXO FOLDER GLUER OPERATOR issued written HEP for pt & reviewed both Supine & Seated Ex. Answered questions regarding DC as well as referred SP to SW for some set up questions about equipment. Pt resting at end of tx w/all needs met, call light in hand. Assessment Current Status: Good Progress Pt is excited and enjoying company of SP. Pt continues to work hard and knows fatigue limits and recognizes when needing a rest. PT Short Term Goals Short Term Goals Time Frame: Nov 27, 2020 Roll Left & Right: 3 Sit to lyin Lying to sitting on side of be: 3 Sit to stand: 3 Chair/dsf-mv-baipx transfer: 3 Walk 10 feet: 3 PT Fpc Goals Mobile Home Installer Goals PT Fpc Goals Time Frame: Dec 11, 2020 Roll Left & Right (QC): 4 Sit to Lying (QC): 4 Lying-Sitting on Side/Bed(QC): 4 Sit to Stand (QC): 4 Chair/Ajf-vs-Gbcmk Xfer(QC): 4 Toilet Transfer (QC): 4 Car Transfer (QC): 3 Does the Patient Walk: Yes Walk 10 feet (QC): 3 Walk 50ft with 2 Turns (QC): 3 Walk 150 ft (QC): 88 Walking 10ft on Uneven Surface: 3 1 Step (curb) (QC): 3 4 Steps (QC): 88 12 Steps (QC): 88 Picking up an Object (QC): 88 Wheel 50 feet with 2 turns (QC: 6 Wheel 150 feet: 6 PT Plan Problem List Problem List: Activity Tolerance Treatment/Plan Treatment Plan: Continue Plan of Care Treatment Plan: Bed Mobility, Education, Functional Activity Leti, Functional Strength, Group Therapy, Gait, Safety, Therapeutic Exercise, Transfers Treatment Duration: Dec 11, 2020 Frequency: Modified Program (IRF) Estimated Hrs Per Day: 1 hour per day Patient and/or Family Agrees t: Yes Safety Risks/Education Patient Education: Issued Written HEP, Safety Issues Teaching Recipient: Patient Teaching Methods: Discussion Response to Teaching: Verbalize Understanding Time/GCodes Time In: 1300 Time Out: 1330 Total Billed Treatment Time: 30 Total Billed Treatment 1, EX (15m) & FA (15m) KARYN BAKER FLEXO FOLDER GLUER OPERATOR Dec 24, 2020 14:11
--- NOTE | 2020-12-24 15:02 | NUR ---
CM/SS CONCURRENT DOCUMENTATION As planned, patient's spouse Opal Zelaya was here this a.m. to observe/participate with patient during his therapy sessions as a means to determine his readiness to return home under her care. BARRIERS TO DISCHARGE: Patient's physical readiness is the primary factor at this time. He has been hospitalized continuously since 09/24/20. His spouse is a former RN, she states she has confidence she can monitor and assist him once he is released. She is petite in size to his tallness and she would not consistently be able to provide care other than standby assist. DME: Anticipate new home O2. Opal states there is an agency in [place], she has no preference. The plan would be that Opal would bring the portable O2 and that the agency would then deliver the full setup to the home once they are there. HHC: Will request RN PT OT. Opal identifies no agency knowledge or preference. She understands advertising copy writer will explore through [employer] and rank from the highest rated. Review patient in patient care conference tomorrow, proposed discharge would be first of next week if team is in agreement.
--- NOTE | 2020-12-24 17:55 | NUR ---
"RD ASSESSMENT PMHx: afib; HTN; BPH; hypercholesterolemia; PT INTERACTION: Pt was awake and pleasant during nutrition follow-up. Pt states he has been eating well since last assessment. Note avg PO intake 94% x4d, per chart review. Pt states no issues with n/v/c/d since last assessment. Note last BM was 12/24, and pt currently on bowel regimen of colace BID, senna BID, and miralax BID, per chart review. Est. kcal needs: 3734-8495 kcal | 25-30 kcal/kg Est. Pro needs: 64-80 g Pro | 0.8-1.0 g Pro/kg PES STATEMENT: Given current PO intake, no nutrition diagnosis at this time (NO-1.1). INTERVENTION: Continue with current diet order of Regular diet. Continue with current supplementation order of Ensure Enlive with meals TID for increased kcal and protein intake. Provides 350 kcal and 20 g Pro per serving. Will continue to follow and reassess as pt needs, intake, and status change. Carlos SIMMONS MS RD LD [phone] cell"
[2020-12-24 18:16] VITALS: BP 108/74
[2020-12-24] MEDS: MIRTAZAPINE 15 MG (REMERON) TAB PO SCH (21:00)
[2020-12-24] MEDS: MELATONIN 10 MG TABLET PO SCH (21:00)
[2020-12-25 05:42] VITALS: BP 105/74
[2020-12-25] MEDS: predniSONE 10 MG TAB PO SCH (06:20)
[2020-12-25] MEDS: TAMSULOSIN 0.4 MG (FLOMAX) CAP PO SCH ×2 (08:09→21:18)
[2020-12-25] MEDS: LORATADINE (CLARITIN) 10 MG TAB PO SCH (08:09)
[2020-12-25] MEDS: CYANOCOBALAMIN 1,000 MCG (VITAMIN B-12) TABLET PO SCH (08:09)
[2020-12-25] MEDS: PHENAZOPYRIDINE 100 MG (PYRIDIUM) TABLET PO SCH ×3 (08:09→21:18)
[2020-12-25] MEDS: LACTOBACILLUS ACIDOPHILUS (PROBIOTIC) CAPSULE PO SCH ×2 (08:09→21:18)
[2020-12-25] MEDS: FINASTERIDE (PROSCAR) 5 MG TAB PO SCH (08:09)
[2020-12-25] MEDS: DOCUSATE SODIUM 100 MG (COLACE) CAP PO SCH ×2 (08:10→21:19)
[2020-12-25] MEDS: FOLIC ACID 1 MG TAB PO SCH (08:10)
[2020-12-25] MEDS: SENNA W/DOCUSATE (SENOKOT S) TABLET PO SCH ×2 (08:10→21:19)
[2020-12-25] MEDS: ROFLUMILAST 500 MCG TAB (DALIRESP) PO SCH (08:11)
[2020-12-25] MEDS: MONTELUKAST 10 MG (SINGULAIR) TAB PO SCH (08:11)
[2020-12-25] MEDS: APIXABAN 5 MG (ELIQUIS) TABLET PO SCH ×2 (08:11→21:18)
[2020-12-25] MEDS: PANTOPRAZOLE 40 MG (PROTONIX) TAB PO SCH (08:11)
[2020-12-25] MEDS: meTOprolol TARTRATE 25 MG (LOPRESSOR) TABLET PO SCH ×2 (08:12→21:18)
[2020-12-25] MEDS: MICONAZOLE 2% POWDER (DESENEX AF) 90 GM TOP SCH ×2 (08:13→21:19)
[2020-12-25] MEDS: ACETAMINOPHEN 325 MG TABLET PO PRN ×2 (08:13→21:19)
[2020-12-25] MEDS: NYSTATIN CREAM (MYCOSTATIN) 30 GM TUBE TP SCH ×3 (08:14→21:19)
--- NOTE | 2020-12-25 08:15 | Pulmonary Progress Note ---
Subjective Time Seen by a Provider: 08:13 Subjective/Events-last exam No complications noted. Sepsis Event Evaluation Height, Weight, BMI Height: '" Weight: lbs. oz. kg; 23.39 BMI Method: Exam Exam Vital Signs Date Time Temp Pulse Resp B/P (MAP) Pulse Ox O2 Delivery O2 Flow Rate FiO2 12/25/20 05:42 36.6 80 22 105/74 (84) 95 Nasal Cannula 2.00 12/24/20 20:10 Nasal Cannula 2.00 12/24/20 18:16 36.8 85 16 108/74 (85) 98 Nasal Cannula 2.00 12/24/20 09:00 Nasal Cannula 2.00 12/24/20 08:30 80 100/63 (75) 98 Nasal Cannula 2.00 I & O 12/25/20 07:00 Intake Total 1740 ml Output Total 1825 ml Balance -85 ml Height & Weight Height: '" Weight: lbs. oz. kg; 23.39 BMI Method: General Appearance: No Apparent Distress, WD/WN, Chronically ill, Thin HEENT: PERRL/EOMI, Normal ENT Inspection, Pharynx Normal Neck: Full Range of Motion, Normal Inspection, Non Tender, Supple, Carotid Bruit Respiratory: Chest Non Tender, Lungs Clear, No Respiratory Distress, Accessory Muscle Use, Decreased Breath Sounds Cardiovascular: Regular Rate, Rhythm, No Edema, No Gallop, No JVD, No Murmur, Normal Peripheral Pulses Capillary Refill: Less Than 3 Seconds Extremity: Normal Capillary Refill, Normal Inspection, Normal Range of Motion, Non Tender, No Calf Tenderness, No Pedal Edema Neurologic/Psychiatric: Alert, Oriented x3, No Motor/Sensory Deficits, Normal Mood/Affect, Motor Weakness (generalized 2/5 lower extremities, 3/5 upper extremities) Skin: Normal Color, Warm/Dry Lymphatic: No Adenopathy Assessment/Plan Assessment/Plan s/p COVID 19 PNA with hypoxia -oxygen currently 2 liters NC -CXR and labs reviewed -Albuterol and advair Mass like infiltrate per CT of chest -Repeat CT in 3 mo COPD -Albuterol and advair YARELI BONNER DO Dec 25, 2020 08:15
--- NOTE | 2020-12-25 08:48 | PM&R Progress Note ---
Subjective HPI/CC On Admission Date Seen by Provider: Dec 25, 2020 Time Seen by Provider: 09:00 Subjective/Events-last exam 12/25/20: Family training went very well Discharging on Wednesday Overall feels really good about that plan 12/24/20: Bowels moved yesterday Tylenol ordered No falls Feels like he is doing pretty well Met at bedside today for family training 12/23/20: Pt voiding very well Fall yesterday on his buttocks No significant pain Bowels moved yesterday CT Scan was reviewed from Dr. Khan, the high resolution type and we talked about the bullae 12/22/20: No blood in urine now No pain urinating No PVR Less frequency Had a non-injury fall backwards today 12/21/20: Transferring well Ambulating very well Doing well overall Hematuria remains 12/20/20: Much improved ambulation Less hematuria Dysuria still BM+ Talked about COVID vaccine 12/19/20: Valdes was discontinued and hes going to urinate every hour Updated Dr. Marsh Bowels moved yesterday Conferred with Dr. Marsh at the bedside with the patient 12/18/20: Bowels are moving today Passed a clot in the urine today Hemorrhoid cream will be provided Catheter was removed today per Dr. Marsh 12/17/20: Catheter will be taken out tomorrow Has not required continuous bladder irrigation Bowels are moving pretty well Overall participating in therapy and getting stronger 12/16/20: Hgb 9.4 Getting ready to stand with walker and help Valdes Catheter still in place, will remove on Wednesday per urology Checked meds and labs 12/15/20: Doing well BM after suppository Valdes in place no hematuria Bed lamar for BM 12/14/20: No longer taking Belladonna supp Urine cleared TBI DC Improved overall Holding OAC 12/13/20: Dr Marsh assessed him to be doing well Slowing the CBI O2 2L/min wbc 11 Belladonna supp help his pain 12/12/20: s/p TURP Belladonna supp for pain Monitor labs Holding OAC Levaquin 500mg daily Appreciate Dr Marsh 12/10/20: TURP scheduled for tomorrow morning Receiving two units of blood in preparation for the surgery since there is blood loss during the surgery Remains on two liters of oxygen Overall feels like he is doing really well 12/09/20: Bowels moved after suppository yesterday Holding anticoagulation for TURP Hgb 8.7 s/p five doses of Venofer Overall feels pretty good 12/08/20: MRSA of sputum still present TURP Wed Holding OAC now for surgery Standing a bit on his own with sit to stand 12/07/20: Second sputum done and pending BM incontinent Hold Eliquis tomorrow in prep for TURP 2L/min O2 maintained Sit to stand is helpful 12/06/20/: Steady improvement Dr Pritchett Wednesday for toenail care Second sputum pending to get out of isolation BM today 12/05/20: BM today 2L/min BP low so will monitor closely Improved transfers Updated patient and his who was on the phone 12/04/20: Pt slept very well again Coughing up a little bit more sputum that does show MRSA and ESBL, will remain in isolation Valdes is back in Will have TURP on Wednesday, holding Eliquis on Wednesday Incontinence of bowels is noted Overall extremely improved 12/03/20: Discontinued catheter yesterday by Dr. 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 Up in chair today BM++ Good outlook O2 at 3L/min Increase O2 during therapies 11/29/20: No new issues Midline was placed now flushes maintained Much improved status Down to 1 L of oxygen Increased oxygen requirement with exercise Still with Valdes catheter in place Upright in wheelchair today Dramatic improvement 11/28/20: Slept a bit better Midline for Venofer will be placed Much improved status BSC today Valdes cath replaced 11/27/20: Pt remains on 1 liter per minute of oxygen Appears to be much improved today Cystoscope done today showing large prostate Proscar along with Flomax was initiated Cath was done and obtained 1000cc of urine Nystatin cream and powder will be initiated Overall much improved 11/26/20: Pt did not sleep last night due to urinary frequency Had to do straight in and out cath x4 last night Dr. Marsh will be updated Blood in the urine 1 liter of O2 now but will need a higher level when he is working out CT chest and ABG reviewed 11/25/20: ABG is pending from not being drawn yet CT of the chest will be performed, Dr. Schrader has been updated Bowels moved yesterday 11/24/20: Venofer IV started and I explained why I started that for him Will check CT scan of chest tomorrow and consult Dr Schrader Labs and ABG ordered as well Still very tachypneic with conversation and at rest Monitoring BP 2L/min 11/23/20: No orthostasis today Worked with PT OT BM++ O2 maintained 11/22/20: Hgb 8.6 today Feels better since IVF 500cc yesterday and changed cardiac meds by Dr Cisneros [place] was born and he is thrilled about that Valdes cath still in place Fecal incontinence noted RT left him without O2 since he was good BRIEFLY on room air after Nebs for 1 hour and spot checked and he was at 85% and he was very short of breath just resting 11/21/20: Had episode of hypotension 76/40 with symptoms when got to edge of bed so laid back down, Cardiology notified and given 500cc of IVF Patient is on a waiver due to COVID and hypoxia for slow therapy and only 120 minutes per day Cardizem CD 120mg now after changed by Dr Cisneros ECHO done Stopped Lasix Valdes cath remains in place Review of Systems General: Fatigue, Malaise Objective Exam Vital Signs Vital Signs Date Time Temp Pulse Resp B/P (MAP) Pulse Ox O2 Delivery O2 Flow Rate FiO2 12/25/20 20:10 Nasal Cannula 2.00 12/25/20 18:08 36.8 90 18 125/79 (94) 96 Capillary Refill : Less Than 3 Seconds General Appearance: No Apparent Distress, WD/WN, Chronically ill, Thin HEENT: PERRL/EOMI, Normal ENT Inspection, Pharynx Normal Neck: Full Range of Motion, Normal Inspection, Non Tender, Supple, Carotid Bruit Respiratory: Chest Non Tender, Lungs Clear, No Respiratory Distress, Accessory Muscle Use, Decreased Breath Sounds Cardiovascular: Regular Rate, Rhythm, No Edema, No Gallop, No JVD, No Murmur, Normal Peripheral Pulses Gastrointestinal: Normal Bowel Sounds, No Organomegaly, No Pulsatile Mass, Non Tender, Soft Back: Normal Inspection, No CVA Tenderness, No Vertebral Tenderness Extremity: Normal Capillary Refill, Normal Inspection, Normal Range of Motion, Non Tender, No Calf Tenderness, No Pedal Edema Neurologic/Psychiatric: Alert, Oriented x3, No Motor/Sensory Deficits, Normal Mood/Affect, Motor Weakness (generalized 2/5 lower extremities, 3/5 upper extremities) Skin: Normal Color, Warm/Dry Lymphatic: No Adenopathy Results/Procedures Lab Patient resulted labs reviewed. FIM Transfers Therapy Code Descriptions/Definitions Functional [place] Measure: 0=Not Assessed/NA 4=Minimal Assistance 1=Total Assistance 5=Supervision or Setup 2=Maximal Assistance 6=Modified [place] 3=Moderate Assistance 7=Complete IndependenceSCALE: Activities may be completed with or without assistive devices. 5-Hrucfrlvec-cmtuspx completes the activity by him/herself with no assistance from a helper. 5-Set-up or Clean-up Assistance-helper sets up or cleans up; patient completes activity. [place] assists only prior to or following the activity. 4-Supervision or Touching Assistance-helper provides verbal cues and/or touching/steadying and/or contact guard assistance as patient completes activity. Assistance may be provided throughout the activity or intermittently. 3-Partial/Moderate Assistance-helper does LESS THAN HALF the effort. [place] lifts, holds or supports trunk or limbs, but provides less than half the effort. 2-Substantial/Maximal Assistance-helper does MORE THAN HALF the effort. [place] lifts or holds trunk or limbs and provides more than half the effort. 9-Rteytacgx-mbyvju does ALL the effort. Patient does none of the effort to complete the activity. Or, the assistance of 2 or more helpers is required for the patient to complete the activity. If activity was not attempted, code reason: 7-Patient Refused. 9-Not Applicable-not attempted and the patient did not perform the activity before the current illness, exacerbation or injury. 10-Not Attempted due to Environmental Limitations-(lack of equipment, weather restraints, etc.). 88-Not Attempted due to Medical Conditions or Safety Concerns. Roll Left to Right (QC): 6 Sit to Lying (QC): 5 Sit to Stand (QC): 4 Chair/Hjd-th-Oiqrh Xfer(QC): 4 Car Transfer (QC): 2 Gait Training Does the Patient Walk?: Yes Distance: 36' & 50+' Walk 10 feet (QC): 4 Walk 50 ft with 2 Turns(QC): 4 Walk 150 ft (QC): 88 Walking 10ft/uneven surface-QC: 88 Gait Persons Needed: 1 Gait Assistive Device: FWW Wheelchair Training Does the Pt Use a Wheelchair?: Yes Wheel 50 ft with 2 turns (QC): 6 Wheel 150 ft (QC): 6 Type of Wheelchair: Manual Stair Training 1 Step (curb) (QC): 88 4 Steps (QC): 88 12 Steps (QC): 88 Balance Picking up an Object (QC): 88 ADL-Treatment Eating (QC): 6 (Pt able to set up and use regular utensils independently.) Oral Hygiene (QC): 6 Bathing Location: L Arm, R Arm, L Upper Leg, R Upper Leg, L Lower Leg (including foot), R Lower Leg (including foot), Chest, Abdomen, Buttocks (Min A to stabilize in standing), Perineal Area Shower/Bathe Self (QC): 3 Upper Body Dressing (QC): 5 Lower Body Dressing (QC): 4 On/Off Footwear (QC): 3 Toileting Hygiene (QC): 4 Toilet Transfer (QC): 4 Assessment/Plan Assessment and Plan Assess & Plan/Chief Complaint Assessment: Myopathy COVID-19 PNA Urinary retention Valdes cath in place Bowel incontinence Hypoxia O2 dependent BPH Frail Advanced age Sputum colonized with MRSA and ESBL Plan: IRF protocol but 120 minutes per day to accommodate hypoxia at activity Wedron meds Melatonin at night 11/21/20: s/o IVF Monitor hypotension and hypoxia Appreciate Dr Cisneros ECHO done Add Remeron for sleep with Melatonin 11/22/20: No possibility of weaning O2 for now with this patient so needs on 21/06 and will update RT Increase activity 11/23/20: Maintain O2 Nebs Monitor BP 11/24/20: Venofer Labs and ABG and CT chest in am Dr Schrader consultation Maintain O2 Very fragile lungs 11/25/20: CT chest ABG Dr Schrader consultation 11/26/20: Dr Schrader appreciated Dr Marsh appreciated 11/27/20: Dr Marsh appreciated Monitor O2 11/28/20: Valdes cath in place Midline Venofer 11/29/20: Midline flushes Venofer Monitor closely Dramatic improvement 11/30/20: Dramatic improvement continues Monitor closely Increase O2 with therapy 12/01/20: Bowel incontinence could complicate DC plans Monitor urinary retention closely 12/02/20: Manage B/B incontinence Improved status Labs good 12/03/20: Improved insomnia Continue treatment B/B incontinence 12/04/20: TURP next Wed Hold OAC as of Wednesday Conferred with Dr Marsh and patient 12/05/20: Improved transfers Monitor closely O2 Incontinence management 12/06/20: Steady improvement TURP Wed Hold OAC as of Wednesday morning 12/07/20: Await second sputum Monitor closely O2 BM 12/08/20: TURP Wed Hold OAC Monitor closely Labs in am 12/09/20: TURP Wednesday Monitor closely 12/10/20: TURP tomorrow Monitor closely 2 units of blood today 12/12/20: Belladonna suppositories Monitor labs Hold OAC 12/13/20: Dr Marsh appreciated Pain control O2 Monitor closely 12/14/20: Monitor hematuria Pain control from TURP Continue therapy 12/15/20: BM regimen Monitor valdes cath Hold OAC 12/16/20: Ambulating Participating with therapy Valdes out tomorrow? 12/17/20: DC catheter tomorrow Monitor pain O2 wean 12/18/20: Monitor closely Dramatic improvement DC catheter 12/19/20: Improved overall Walking well Hematuria improved Voiding spontaneously 12/20/20: COVID vaccine discussed Monitor pain with urination Ambulating well 12/21/20: Monitor hematuria Fall risk Pain control 12/22/20: Fall noted today Monitor hematuria Doing well from TURP Reviewed notes from Dr Khan about the "hole" in his lung per patient 12/23/20: Monitor urination Increase stamina Patient has long standing lung issues prior to COVID 12/24/20: Monitor urination Increase ambulation Family training 12/25/20: DC Wednesday Excellent recovery (1) Myopathy (2) COVID-19 (3) Hypoxia (4) Urinary retention (5) Valdes catheter in place (6) BPH (benign prostatic hyperplasia) (7) Bowel incontinence (8) Supplemental oxygen dependent (9) Advanced age (10) Frailty ABRB COLLINS DO Dec 25, 2020 08:48
[2020-12-25] MEDS: polyethylene glycoL POWDER 17 GM (MIRALAX) PACK PO SCH ×2 (09:00→21:33)
--- NOTE | 2020-12-25 09:35 | Cardiology Progress Note ---
Subjective Date Seen by Provider: Dec 25, 2020 Time Seen by Provider: 09:34 Subjective/Events-last exam Patient is sitting up in chair, no new complaints. Deneis any chest pain or dyspnea. Objective-Cardiology Exam Last Set of Vital Signs Vital Signs 12/25/20 12/25/20 05:42 09:00 Temp 36.6 Pulse 80 Resp 22 B/P (MAP) 105/74 (84) Pulse Ox 95 O2 Delivery Nasal Cannula O2 Flow Rate 2.00 Capillary Refill : Less Than 3 Seconds I&O Intake and Output 12/25/20 00:00 Intake Total 1940 ml Output Total 1900 ml Balance 40 ml Intake Oral 1940 ml Output Urine Total 1900 ml # Voids 2 # Bowel Movements 3 General: Alert, Oriented X3, Cooperative HEENT: Atraumatic, PERRLA Neck: Supple, No JVD, No Thyromegaly Lungs: Clear to Auscultation, Normal Air Movement Heart: Regular Rate, Normal S1, Normal S2, No Murmurs Abdomen: Normal Bowel Sounds, Soft, No Tenderness, No Hepatosplenomegaly, No Masses Extremities: No Clubbing, No Cyanosis, No Edema, Normal Pulses, No Tenderness/Swelling Skin: No Rashes, No Breakdown, No Significant Lesion Neuro: Normal Gait, Normal Speech, Normal Tone, Sensation Intact Psych/Mental Status: Mental Status NL, Mood NL A/P-Cardiology Admission Diagnosis PAF s/p acute respiratory failure Hypotension Myopathy Assessment/Plan PAF, currently sinus rhythm, Eliquis restarted. 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 Urinary retention, s/p TURP, following with Dr. Marsh. +MRSA in sputum Patient was seen and evaluated with Brenda, examination performed, management plan was discussed, agree with the current scribed note, I made few changes to the note using Italic font Patient is tolerating current medication well, tolerating oral anticoagulation without active bleeding Continue to monitor, no changes are recommended Clinical Quality Measures DVT/VTE Risk/Contraindication: Risk Factor Score Per Nursin RFS Level Per Nursing on Admit: 4+=Very High RAMIREZ-ROBERTO,BRENDA K PA Dec 25, 2020 9:35 am GIANCARLO BROWN MD Dec 25, 2020 3:56 pm
--- NOTE | 2020-12-25 10:24 | Occupational Ther Daily Note ---
OT Current Status-Daily Note Subjective Pt alert, sitting in recliner. Pt agrees to therapy. No c/o pain at this time. Pt states that he wants to go home Wednesday. Mental Status/Objective Patient Orientation: Person, Place, Time, Situation Attachments: Oxygen (2L) ADL-Treatment Pt declined shower. SBA for transfer into w/c using FWW. Pt propelled self to bathroom then transferred to toilet with SBA and completed hygiene and clothing manipulation with SBA. Positioned w/c at sink and completed own sponge bath and oral care sitting in w/c. Clothing placed on FWW and pt able to complete upper body dressing by self. Pt threaded feet into pants/briefs and hiked pants over hips with SBA. Pt's shoes are tight and required min A to don, using long handle shoe horn to don until back of shoe turned down at heel. Therapy Code Descriptions/Definitions Functional [place] Measure: 0=Not Assessed/NA 4=Minimal Assistance 1=Total Assistance 5=Supervision or Setup 2=Maximal Assistance 6=Modified [place] 3=Moderate Assistance 7=Complete IndependenceSCALE: Activities may be completed with or without assistive devices. 6-Cbhowdcscx-inbfdxu completes the activity by him/herself with no assistance from a helper. 5-Set-up or Clean-up Assistance-helper sets up or cleans up; patient completes activity. [place] assists only prior to or following the activity. 4-Supervision or Touching Assistance-helper provides verbal cues and/or touch ing/steadying and/or contact guard assistance as patient completes activity. Assistance may be provided throughout the activity or intermittently. 3-Partial/Moderate Assistance-helper does LESS THAN HALF the effort. [place] lifts, holds or supports trunk or limbs, but provides less than half the effort. 2-Substantial/Maximal Assistance-helper does MORE THAN HALF the effort. [place] lifts or holds trunk or limbs and provides more than half the effort. 4-Ynmmtoncq-vbhouv does ALL the effort. Patient does none of the effort to complete the activity. Or, the assistance of 2 or more helpers is required for the patient to complete the activity. If activity was not attempted, code reason: 7-Patient Refused. 9-Not Applicable-not attempted and the patient did not perform the activity before the current illness, exacerbation or injury. 10-Not Attempted due to Environmental Limitations-(lack of equipment, weather restraints, etc.). 88-Not Attempted due to Medical Conditions or Safety Concerns. Oral Hygiene (QC): 6 Shower/Bathe Self (QC): 6 Upper Body Dressing (QC): 6 Lower Body Dressing (QC): 4 On/Off Footwear: 3 Toileting Hygiene (QC): 4 Toilet Transfer (QC): 4 Other Treatment Pt propelled w/c to therapy gym to work on standing balance and endurance during standing task. Pt able to stand 2x's while completing ROM arc first with one hand then resting and then the other hand. Pt propelled w/c back to room bathroom and transferred to toilet, completing toileting with SBA. After session, pt sitting in w/c with call light/phone in reach. All needs met in room. OT Short Term Goals Short Term Goals Time Frame: Dec 11, 2020 Shower/bathe self: 4 Upper body dressin Lower body dressin OT Cashier Wrapper Goals Usp Goals Time Frame: Jan 10, 2021 Eating (QC): 6 Oral Hygiene (QC): 6 Toileting Hygiene (QC): 6 Shower/Bathe Self (QC): 6 Upper Body Dressing (QC): 6 Lower Body Dressing (QC): 6 On/Off Footwear (QC): 6 Additional Goals: 1-Demonstrate ADL Tasks, 2-Verbalize Understanding, 3- ImproveStrength/Leti 1=Demonstrate adherence to instructed precautions during ADL tasks. 2=Patient will verbalize/demonstrate understanding of assistive devices/ modifications for ADL. 3=Patient will improve strength/tolerance for activity to enable patient to perform ADL's. OT Education/Plan Problem List/Assessment Assessment: Decreased Activ Tolerance, Impaired Self-Care Skills Discharge Recommendations Plan/Recommendations: Continue POC Treatment Plan/Plan of Care Patient would benefit from OT for education, treatment and training to promote independence in ADL's, mobility, safety and/or upper extremity function for ADL's. Plan of Care: ADL Retraining, Functional Mobility, Group Exercise/Act as Ind, UE Funct Exercise/Act Treatment Duration: Dec 20, 2020 Frequency: Modified Program (IRF) Estimated Hrs Per Day: 1 hour per day Rehab Potential: Good Time/GCodes Start Time: 09:00 Stop Time: 10:00 Total Time Billed (hr/min): 60 Billed Treatment Time 1 visit-ADL 3 (40 min) EX 1 (20 min) VIOLET BACA Dec 25, 2020 10:24
--- NOTE | 2020-12-25 10:59 | Physical Therapy Daily Note ---
PT Daily Note-Current Subjective Pt. agrees to Rx. States he hopes to DC Wednesday and feels he has all the details worked out. Pain Location: No Pain Reported Mental Status Patient Orientation: Normal For Age Attachments: Oxygen Transfers SCALE: Activities may be completed with or without assistive devices. 5-Dbstktvglk-kmpitgj completes the activity by him/herself with no assistance from a helper. 5-Set-up or Clean-up Assistance-helper sets up or cleans up; patient completes activity. [place] assists only prior to or following the activity. 4-Supervision or Touching Assistance-helper provides verbal cues and/or touching/steadying and/or contact guard assistance as patient completes activity. Assistance may be provided throughout the activity or intermittently. 3-Partial/Moderate Assistance-helper does LESS THAN HALF the effort. [place] lifts, holds or supports trunk or limbs, but provides less than half the effort. 2-Substantial/Maximal Assistance-helper does MORE THAN HALF the effort. [place] lifts or holds trunk or limbs and provides more than half the effort. 9-Qpwpknplw-viwize does ALL the effort. Patient does none of the effort to complete the activity. Or, the assistance of 2 or more helpers is required for the patient to complete the activity. If activity was not attempted, code reason: 7-Patient Refused. 9-Not Applicable-not attempted and the patient did not perform the activity before the current illness, exacerbation or injury. 10-Not Attempted due to Environmental Limitations-(lack of equipment, weather restraints, etc.). 88-Not Attempted due to Medical Conditions or Safety Concerns. Sit to Stand (QC): 5 Chair/Tdb-zo-Srwwc Xfer(QC): 5 Toilet Transfer (QC): 5 pt. demonstrated w/c to toilet TRF to and from managing clothing up down as well as cleaning with SBA only in bthrm using rails etc Weight Bearing Full Weight Bearing Full Weight Bearing Gait Training Does the Patient Walk?: Yes Walk 10 feet (QC): 5 Walk 50 ft with 2 Turns(QC): 5 Gait Persons Needed: 1 Gait Assistive Device: FWW gait in small space with O2 attached at wall to simulate home O2 concentrator situation, instructed in use of extended O2 tubing safety. Pt. demonstrated this well walking approx 50 ft with 2 turns x 2 managing tubing without incident. Wheelchair Training Does the Pt Use a Wheelchair?: Yes Wheel 50 ft with 2 turns (QC): 6 Type of Wheelchair: Manual pt. managing w/c ins tight spaces with turns as well as managing O2 tubing wit good safety and no incidents keeping tube free etc Exercises Seated Therapy Exercises: Ankle pumps, Sit to stand, Long arc quads, Hip flexion, Hip abd/add Seated Reps: 15 Assessment Current Status: Good Progress PT Short Term Goals Short Term Goals Time Frame: Nov 27, 2020 Roll Left & Right: 3 Sit to lyin Lying to sitting on side of be: 3 Sit to stand: 3 Chair/jfq-tr-cldyy transfer: 3 Walk 10 feet: 3 PT Chcf Goals Inspector Scales Goals PT Inspector Scales Goals Time Frame: Dec 11, 2020 Roll Left & Right (QC): 4 Sit to Lying (QC): 4 Lying-Sitting on Side/Bed(QC): 4 Sit to Stand (QC): 4 Chair/Div-wy-Fokiz Xfer(QC): 4 Toilet Transfer (QC): 4 Car Transfer (QC): 3 Does the Patient Walk: Yes Walk 10 feet (QC): 3 Walk 50ft with 2 Turns (QC): 3 Walk 150 ft (QC): 88 Walking 10ft on Uneven Surface: 3 1 Step (curb) (QC): 3 4 Steps (QC): 88 12 Steps (QC): 88 Picking up an Object (QC): 88 Wheel 50 feet with 2 turns (QC: 6 Wheel 150 feet: 6 PT Plan Treatment/Plan Treatment Plan: Continue Plan of Care Treatment Plan: Bed Mobility, Education, Functional Activity Leti, Functional Strength, Group Therapy, Gait, Safety, Therapeutic Exercise, Transfers Treatment Duration: Dec 11, 2020 Frequency: Modified Program (IRF) Estimated Hrs Per Day: 1 hour per day Patient and/or Family Agrees t: Yes Safety Risks/Education Patient Education: Gait Training, Transfer Techniques, Reviewed Precautions (extended O2 tubing during gait), Correct Positioning, Disease Process, Safety Issues Teaching Recipient: Patient Teaching Methods: Demonstration, Discussion Response to Teaching: Verbalize Understanding, Return Demonstration, Reinforcement Needed Time/GCodes Time In: 1000 Time Out: 1100 Total Billed Treatment Time: 60 Total Billed Treatment 1,GT25m,FA15m,EX20m ESSENCE ARRIAZA [employer] OFFICIAL Dec 25, 2020 10:59
--- NOTE | 2020-12-25 11:56 | Occupational Ther Daily Note ---
OT Current Status-Daily Note Subjective Pt alert, sitting in recliner. Pt agrees to therapy. No c/o pain at this time. Mental Status/Objective Patient Orientation: Person, Place, Time, Situation Attachments: Oxygen (2L) ADL-Treatment Therapy Code Descriptions/Definitions Functional [place] Measure: 0=Not Assessed/NA 4=Minimal Assistance 1=Total Assistance 5=Supervision or Setup 2=Maximal Assistance 6=Modified [place] 3=Moderate Assistance 7=Complete IndependenceSCALE: Activities may be completed with or without assistive devices. 9-Bitobewzos-mdtjmth completes the activity by him/herself with no assistance from a helper. 5-Set-up or Clean-up Assistance-helper sets up or cleans up; patient completes activity. [place] assists only prior to or following the activity. 4-Supervision or Touching Assistance-helper provides verbal cues and/or touching/steadying and/or contact guard assistance as patient completes activity. Assistance may be provided throughout the activity or intermittently. 3-Partial/Moderate Assistance-helper does LESS THAN HALF the effort. [place] lifts, holds or supports trunk or limbs, but provides less than half the effort. 2-Substantial/Maximal Assistance-helper does MORE THAN HALF the effort. [place] lifts or holds trunk or limbs and provides more than half the effort. 8-Pymhgexvc-aditwe does ALL the effort. Patient does none of the effort to complete the activity. Or, the assistance of 2 or more helpers is required for the patient to complete the activity. If activity was not attempted, code reason: 7-Patient Refused. 9-Not Applicable-not attempted and the patient did not perform the activity before the current illness, exacerbation or injury. 10-Not Attempted due to Environmental Limitations-(lack of equipment, weather restraints, etc.). 88-Not Attempted due to Medical Conditions or Safety Concerns. Toileting Hygiene (QC): 4 (SBA using grabbars and BSC) Toilet Transfer (QC): 4 (SBA using grabbars and BSC) Other Treatment Pt propelled w/c to therapy gym. Pt completed 10 min at 10 garibay resistance to increase B UE strength and activity tolerance for daily functional tasks. Pt tolerated well. Pt then propelled back to room and used toilet. After session, pt sitting in recliner with call light/phone in reach. All needs met in room. OT Short Term Goals Short Term Goals Time Frame: Dec 11, 2020 Shower/bathe self: 4 Upper body dressin Lower body dressin OT Senior Policy Advisor Goals Mcfp Goals Time Frame: Jan 10, 2021 Eating (QC): 6 Oral Hygiene (QC): 6 Toileting Hygiene (QC): 6 Shower/Bathe Self (QC): 6 Upper Body Dressing (QC): 6 Lower Body Dressing (QC): 6 On/Off Footwear (QC): 6 Additional Goals: 1-Demonstrate ADL Tasks, 2-Verbalize Understanding, 3- ImproveStrength/Leti 1=Demonstrate adherence to instructed precautions during ADL tasks. 2=Patient will verbalize/demonstrate understanding of assistive devices/modifications for ADL. 3=Patient will improve strength/tolerance for activity to enable patient to perform ADL's. OT Education/Plan Problem List/Assessment Assessment: Decreased Activ Tolerance, Impaired Funct Balance, Impaired Self- Care Skills Discharge Recommendations Plan/Recommendations: Continue POC Treatment Plan/Plan of Care Patient would benefit from OT for education, treatment and training to promote independence in ADL's, mobility, safety and/or upper extremity function for ADL's. Plan of Care: ADL Retraining, Functional Mobility, Group Exercise/Act as Ind, UE Funct Exercise/Act Treatment Duration: Dec 20, 2020 Frequency: Modified Program (IRF) Estimated Hrs Per Day: 1 hour per day Rehab Potential: Good Time/GCodes Start Time: 11:30 Stop Time: 12:00 Total Time Billed (hr/min): 30 Billed Treatment Time 1 visit-EX 1 (10 min) FA 1 (20 min) VIOLET BACA Dec 25, 2020 11:56
--- NOTE | 2020-12-25 14:28 | Physical Therapy Daily Note ---
PT Daily Note-Current Subjective Pt. agrees to Rx. States he would likje to walk, exercise, toilet and go to bed. Pain Location: No Pain Reported Mental Status Patient Orientation: Normal For Age Attachments: Oxygen Transfers SCALE: Activities may be completed with or without assistive devices. 1-Xnkmmtsumu-xugmblj completes the activity by him/herself with no assistance from a helper. 5-Set-up or Clean-up Assistance-helper sets up or cleans up; patient completes activity. [place] assists only prior to or following the activity. 4-Supervision or Touching Assistance-helper provides verbal cues and/or touching/steadying and/or contact guard assistance as patient completes activity. Assistance may be provided throughout the activity or intermittently. 3-Partial/Moderate Assistance-helper does LESS THAN HALF the effort. [place] lifts, holds or supports trunk or limbs, but provides less than half the effort. 2-Substantial/Maximal Assistance-helper does MORE THAN HALF the effort. [place] lifts or holds trunk or limbs and provides more than half the effort. 6-Vqxmuebdg-vfvgdy does ALL the effort. Patient does none of the effort to complete the activity. Or, the assistance of 2 or more helpers is required for the patient to complete the activity. If activity was not attempted, code reason: 7-Patient Refused. 9-Not Applicable-not attempted and the patient did not perform the activity before the current illness, exacerbation or injury. 10-Not Attempted due to Environmental Limitations-(lack of equipment, weather restraints, etc.). 88-Not Attempted due to Medical Conditions or Safety Concerns. in out bed and chair , toilet and w/c SBA Weight Bearing Full Weight Bearing Full Weight Bearing Gait Training Does the Patient Walk?: Yes Walk 10 feet (QC): 4 Walk 50 ft with 2 Turns(QC): 4 Gait Persons Needed: 1 Gait Assistive Device: FWW 110 ft, 25 ft CGA, assist for w/c to follow and O2 port assist Exercises NuStep Minutes: 10 NuStep Workload: 4 Treatments toilet TRF managing SPT and pants up down SBA Assessment Current Status: Good Progress PT Short Term Goals Short Term Goals Time Frame: Nov 27, 2020 Roll Left & Right: 3 Sit to lyin Lying to sitting on side of be: 3 Sit to stand: 3 Chair/omi-eb-kofbe transfer: 3 Walk 10 feet: 3 PT Retirement Goals Slab Polisher Goals PT Slab Polisher Goals Time Frame: Dec 11, 2020 Roll Left & Right (QC): 4 Sit to Lying (QC): 4 Lying-Sitting on Side/Bed(QC): 4 Sit to Stand (QC): 4 Chair/Yyb-ip-Pgwfd Xfer(QC): 4 Toilet Transfer (QC): 4 Car Transfer (QC): 3 Does the Patient Walk: Yes Walk 10 feet (QC): 3 Walk 50ft with 2 Turns (QC): 3 Walk 150 ft (QC): 88 Walking 10ft on Uneven Surface: 3 1 Step (curb) (QC): 3 4 Steps (QC): 88 12 Steps (QC): 88 Picking up an Object (QC): 88 Wheel 50 feet with 2 turns (QC: 6 Wheel 150 feet: 6 PT Plan Treatment/Plan Treatment Plan: Continue Plan of Care Treatment Plan: Bed Mobility, Education, Functional Activity Leti, Functional Strength, Group Therapy, Gait, Safety, Therapeutic Exercise, Transfers Treatment Duration: Dec 11, 2020 Frequency: Modified Program (IRF) Estimated Hrs Per Day: 1 hour per day Patient and/or Family Agrees t: Yes Safety Risks/Education Patient Education: Gait Training, Transfer Techniques Time/GCodes Time In: 1345 Time Out: 1415 Total Billed Treatment Time: 30 Total Billed Treatment 1,EX15m,GT15m ESSENCE ARRIAZA SLEEPING ROOM CLEANER Dec 25, 2020 14:28
--- NOTE | 2020-12-25 15:07 | Physical Therapy Rehab Re-Cert ---
PT Re-Certification Form Physical Therapy Treatment Plan: Continue Plan of Care Bed Mobility, Education, Functional Activity Leti, Functional Strength, Group Therapy, Gait, Safety, Therapeutic Exercise, Transfers This note is effective 12/11/2020 Treatment Duration: 01/01/2021 Frequency: Modified Program (IRF) Estimated Hrs Per Day: 1 hour per day (increase as able) Patient and/or Family Agrees t: Yes Rehab Potential: Good Pt is making functional gains, he is SBA with rolling in bed, min assist with functional sit to stand and SPT. Working to progress ambulation with FWW. He has progressed in terms of functional strength and balance and has potential to continue to make functional gains. He will benefit from continued skilled PT to initiate functional gait and activity tolerance progression to allow him to return home with his . PT Short Term Goals Short Term Goals Time Frame: Nov 27, 2020 Roll Left & Right: 3 Sit to lyin Lying to sitting on side of be: 3 Sit to stand: 3 Chair/gsl-bv-igdra transfer: 3 Walk 10 feet: 3 PT Prison Goals Transfer And Line Up Worker Goals PT Prison Goals Time Frame: Dec 11, 2020 Roll Left & Right (QC): 4 Sit to Lying (QC): 4 Lying-Sitting on Side/Bed(QC): 4 Sit to Stand (QC): 4 Chair/Rvs-lu-Dfjqj Xfer(QC): 4 Toilet Transfer (QC): 4 Car Transfer (QC): 3 Does the Patient Walk: Yes Walk 10 feet (QC): 3 Walk 50ft with 2 Turns (QC): 3 Walk 150 ft (QC): 88 Walking 10ft on Uneven Surface: 3 1 Step (curb) (QC): 3 4 Steps (QC): 88 12 Steps (QC): 88 Picking up an Object (QC): 88 Wheel 50 feet with 2 turns (QC: 6 Wheel 150 feet: 6 VIOLET VARMA PT Dec 25, 2020 15:07
--- NOTE | 2020-12-25 15:15 | NUR ---
CM/SS PATIENT CARE CONFERENCE Team, patient and his are in agreement to target discharge December. Patient has been continuously hospitalized since 09/24/20. DME: Anticipate new home O2, RT to perform O2 sat study tomorrow. OT is recommending a Hip Kit, a private purchase item. Patient and report that they have all the other recommended assistive devices. HHC: Will set up for RN PT OT as previously noted.
[2020-12-25 18:08] VITALS: BP 125/79
[2020-12-25] MEDS: MELATONIN 10 MG TABLET PO SCH (21:18)
[2020-12-25] MEDS: MIRTAZAPINE 15 MG (REMERON) TAB PO SCH (21:18)
[2020-12-25] MEDS: ADVAIR HFA 115/21 MCG INHALER 8 GM IH SCH (22:23)
[2020-12-25] MEDS: RT-ALBUTEROL/IPRATROPIUM 3 ML (DUONEB) VIAL IH SCH (22:25)
[2020-12-26] MEDS: predniSONE 10 MG TAB PO SCH (05:27)
[2020-12-26 06:04] VITALS: BP 117/74
[2020-12-26] MEDS: RT-ALBUTEROL/IPRATROPIUM 3 ML (DUONEB) VIAL IH SCH ×2 (08:00→19:41)
[2020-12-26] MEDS: ADVAIR HFA 115/21 MCG INHALER 8 GM IH SCH ×2 (08:00→19:43)
[2020-12-26] MEDS: DOCUSATE SODIUM 100 MG (COLACE) CAP PO SCH ×2 (08:18→20:54)
[2020-12-26] MEDS: meTOprolol TARTRATE 25 MG (LOPRESSOR) TABLET PO SCH ×2 (08:18→20:54)
[2020-12-26] MEDS: SENNA W/DOCUSATE (SENOKOT S) TABLET PO SCH ×2 (08:19→20:54)
[2020-12-26] MEDS: CYANOCOBALAMIN 1,000 MCG (VITAMIN B-12) TABLET PO SCH (08:19)
[2020-12-26] MEDS: APIXABAN 5 MG (ELIQUIS) TABLET PO SCH ×2 (08:19→20:54)
[2020-12-26] MEDS: FINASTERIDE (PROSCAR) 5 MG TAB PO SCH (08:19)
[2020-12-26] MEDS: FOLIC ACID 1 MG TAB PO SCH (08:19)
[2020-12-26] MEDS: PHENAZOPYRIDINE 100 MG (PYRIDIUM) TABLET PO SCH ×3 (08:19→19:07)
[2020-12-26] MEDS: TAMSULOSIN 0.4 MG (FLOMAX) CAP PO SCH ×2 (08:19→20:54)
[2020-12-26] MEDS: PANTOPRAZOLE 40 MG (PROTONIX) TAB PO SCH (08:20)
[2020-12-26] MEDS: LACTOBACILLUS ACIDOPHILUS (PROBIOTIC) CAPSULE PO SCH ×2 (08:20→20:54)
[2020-12-26] MEDS: ROFLUMILAST 500 MCG TAB (DALIRESP) PO SCH (08:20)
[2020-12-26] MEDS: LORATADINE (CLARITIN) 10 MG TAB PO SCH (08:20)
[2020-12-26] MEDS: NYSTATIN CREAM (MYCOSTATIN) 30 GM TUBE TP SCH ×3 (08:21→20:55)
[2020-12-26] MEDS: MICONAZOLE 2% POWDER (DESENEX AF) 90 GM TOP SCH ×2 (08:21→14:19)
--- NOTE | 2020-12-26 08:25 | Cardiology Progress Note ---
Subjective Date Seen by Provider: Dec 26, 2020 Time Seen by Provider: 08:25 Subjective/Events-last exam Denies any chest pain, dyspnea or palpitations. Objective-Cardiology Exam Last Set of Vital Signs Vital Signs 12/26/20 06:04 Temp 36.6 Pulse 57 Resp 16 B/P (MAP) 117/74 (88) Pulse Ox 97 O2 Delivery Nasal Cannula O2 Flow Rate 2.00 Capillary Refill : Less Than 3 Seconds I&O Intake and Output 12/26/20 00:00 Intake Total 1680 ml Output Total 1800 ml Balance -120 ml Intake Oral 1680 ml Output Urine Total 1800 ml # Voids 3 # Bowel Movements 1 General: Alert, Oriented X3, Cooperative HEENT: Atraumatic, PERRLA Neck: Supple, No JVD, No Thyromegaly Lungs: Clear to Auscultation, Normal Air Movement Heart: Regular Rate, Normal S1, Normal S2, No Murmurs Abdomen: Normal Bowel Sounds, Soft, No Tenderness, No Hepatosplenomegaly, No Masses Extremities: No Clubbing, No Cyanosis, No Edema, Normal Pulses, No Tenderness/Swelling Skin: No Rashes, No Breakdown, No Significant Lesion Neuro: Normal Gait, Normal Speech, Normal Tone, Sensation Intact Psych/Mental Status: Mental Status NL, Mood NL A/P-Cardiology Admission Diagnosis PAF s/p acute respiratory failure Hypotension Myopathy Assessment/Plan PAF, currently sinus rhythm, Eliquis restarted. 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 Urinary retention, s/p TURP, following with Dr. Marsh. +MRSA in sputum Patient was seen and evaluated with Brenda, examination performed, management plan was discussed, agree with the current scribed note, I made few changes to the note using Italic font Patient was seen at bedside, sitting comfortably, no new complaint Planning for discharge tomorrow Continue on oral anticoagulation, follow-up as an outpatient Clinical Quality Measures DVT/VTE Risk/Contraindication: Risk Factor Score Per Nursin RFS Level Per Nursing on Admit: 4+=Very High BRENDA MARCIAL Dec 26, 2020 08:25 GIANCARLO BROWN MD Dec 26, 2020 09:17
[2020-12-26] MEDS: ACETAMINOPHEN 325 MG TABLET PO PRN ×2 (08:28→19:07)
[2020-12-26] MEDS: MONTELUKAST 10 MG (SINGULAIR) TAB PO SCH (08:28)
[2020-12-26] MEDS: polyethylene glycoL POWDER 17 GM (MIRALAX) PACK PO SCH ×2 (09:26→19:12)
--- NOTE | 2020-12-26 09:39 | Occupational Ther Daily Note ---
OT Current Status-Daily Note Subjective Pt alert, sitting in recliner. Pt agrees to therapy. No c/o pain at this time. Mental Status/Objective Patient Orientation: Person, Place, Time, Situation Attachments: Oxygen (2L) ADL-Treatment 1st session([id number]): Pt ambulated 6 steps to BSC using FWW, SBA while pt manipulated clothing and hygiene. Pt SOA from exertion, O2 levels WNL. Pt then used w/c to gather clothing from closet, independently. Pt then transferred into bed independently with SPT from w/c. Pt able to position self in bed independently. After session, pt lying in bed with call light/phone in reach. All needs met in room. 2nd session([id number]): Co-treat with PT ([id number]), skilled instruction and modifications required from 2 clinicians due to pt's oxygen needs and fatigue level. PT focusing on ambulation, transfers and mobility while OT focusing on ADLs, B UE placement during functional mobility and balance during ADL tasks. Pt agrees to shower. Supine to EOB, independent. Ambulated to w/c, stepping onto/off of step for PT. Pt propelled w/c to bathroom and transferred to toilet independently. SBA for toileting using grabbars and BSC. Pt has difficulty sit to stand from low surface, ie. shower bench. Pt completed shower using hand held shower, grabbar and shower bench independently, leans side to side to cleanse buttocks. Pt propelled w/c to sink to complete oral care and grooming independently. Pt had gathered clothing in earlier session. Independent with upper body and footwear. Pt threads pants/briefs over feet by self then hikes over hips with SBA. Therapy Code Descriptions/Definitions Functional [place] Measure: 0=Not Assessed/NA 4=Minimal Assistance 1=Total Assistance 5=Supervision or Setup 2=Maximal Assistance 6=Modified [place] 3=Moderate Assistance 7=Complete IndependenceSCALE: Activities may be completed with or without assistive devices. 1-Gqcvctlvoe-jfzvjqw completes the activity by him/herself with no assistance from a helper. 5-Set-up or Clean-up Assistance-helper sets up or cleans up; patient completes activity. [place] assists only prior to or following the activity. 4-Supervision or Touching Assistance-helper provides verbal cues and/or touching/steadying and/or contact guard assistance as patient completes activity. Assistance may be provided throughout the activity or intermittently. 3-Partial/Moderate Assistance-helper does LESS THAN HALF the effort. [place] lifts, holds or supports trunk or limbs, but provides less than half the effort. 2-Substantial/Maximal Assistance-helper does MORE THAN HALF the effort. [place] lifts or holds trunk or limbs and provides more than half the effort. 2-Dztktrpyd-nsylda does ALL the effort. Patient does none of the effort to complete the activity. Or, the assistance of 2 or more helpers is required for the patient to complete the activity. If activity was not attempted, code reason: 7-Patient Refused. 9-Not Applicable-not attempted and the patient did not perform the activity before the current illness, exacerbation or injury. 10-Not Attempted due to Environmental Limitations-(lack of equipment, weather restraints, etc.). 88-Not Attempted due to Medical Conditions or Safety Concerns. Eating (QC): 6 Oral Hygiene (QC): 6 Shower/Bathe Self (QC): 6 Upper Body Dressing (QC): 6 Lower Body Dressing (QC): 4 On/Off Footwear: 6 Toileting Hygiene (QC): 4 Toilet Transfer (QC): 4 PT took pt to QC car transfer, see progress notes. After session, pt sitting in recliner with lunch and call light/phone in reach. All needs met in room. OT Short Term Goals Short Term Goals Time Frame: Dec 11, 2020 Shower/bathe self: 4 Upper body dressin Lower body dressin OT Farmworker Pullet Farm Goals Farmworker Pullet Farm Goals Time Frame: Jan 10, 2021 Eating (QC): 6 (met) Oral Hygiene (QC): 6 (met) Toileting Hygiene (QC): 6 (not met) Shower/Bathe Self (QC): 6 (met) Upper Body Dressing (QC): 6 (met) Lower Body Dressing (QC): 6 (not met) On/Off Footwear (QC): 6 (met) Additional Goals: 1-Demonstrate ADL Tasks, 2-Verbalize Understanding, 3- ImproveStrength/Leti 1=Demonstrate adherence to instructed precautions during ADL tasks. 2=Patient will verbalize/demonstrate understanding of assistive devices/modifications for ADL. 3=Patient will improve strength/tolerance for activity to enable patient to perform ADL's. OT Education/Plan Problem List/Assessment Assessment: Decreased Activ Tolerance, Decreased UE Strength Discharge Recommendations Plan/Recommendations: Continue POC Treatment Plan/Plan of Care Patient would benefit from OT for education, treatment and training to promote independence in ADL's, mobility, safety and/or upper extremity function for ADL's. Plan of Care: ADL Retraining, Functional Mobility, Group Exercise/Act as Ind, U E Funct Exercise/Act Treatment Duration: Dec 20, 2020 Frequency: Modified Program (IRF) Estimated Hrs Per Day: 1 hour per day Rehab Potential: Good Time/GCodes Start Time: 09:00 (1100) Stop Time: 09:30 (1200) Total Time Billed (hr/min): 90 Billed Treatment Time 2 visits-ADL 4 (60 min) FA 2 (30 min) co-treat with PT [id number], individual [id number] VIOLET BACA Dec 26, 2020 09:39
--- NOTE | 2020-12-26 11:31 | Physical Therapy Daily Note ---
PT Daily Note-Current Subjective Pt laying Supine in bed w/O2 off for Home O2 test. Pt agrees to PT/OT co-treat. Pain Location: No Pain Reported Mental Status Patient Orientation: Person, Place, Situation Attachments: Oxygen (2L) Transfers SCALE: Activities may be completed with or without assistive devices. 3-Mzparcbaxo-ghppejm completes the activity by him/herself with no assistance from a helper. 5-Set-up or Clean-up Assistance-helper sets up or cleans up; patient completes activity. [place] assists only prior to or following the activity. 4-Supervision or Touching Assistance-helper provides verbal cues and/or touching/steadying and/or contact guard assistance as patient completes activity. Assistance may be provided throughout the activity or intermittently. 3-Partial/Moderate Assistance-helper does LESS THAN HALF the effort. [place] lifts, holds or supports trunk or limbs, but provides less than half the effort. 2-Substantial/Maximal Assistance-helper does MORE THAN HALF the effort. [place] lifts or holds trunk or limbs and provides more than half the effort. 0-Kfkkdtufn-nrwakq does ALL the effort. Patient does none of the effort to complete the activity. Or, the assistance of 2 or more helpers is required for the patient to complete the activity. If activity was not attempted, code reason: 7-Patient Refused. 9-Not Applicable-not attempted and the patient did not perform the activity before the current illness, exacerbation or injury. 10-Not Attempted due to Environmental Limitations-(lack of equipment, weather restraints, etc.). 88-Not Attempted due to Medical Conditions or Safety Concerns. Roll Left & Right (QC): 5 Sit to Lying (QC): 5 Lying to Sitting/Side of Bed(Q: 5 Sit to Stand (QC): 5 Chair/Has-qu-Zvlzi Xfer(QC): 5 Toilet Transfer (QC): 5 Car Transfer (QC): 5 Weight Bearing Full Weight Bearing Full Weight Bearing Wheelchair Training Does the Pt Use a Wheelchair?: Yes Wheel 50 ft with 2 turns (QC): 6 Wheel 150 ft (QC): 6 Type of Wheelchair: Manual Treatments 1st session([id number]): Co-treat with OT ([id number]), skilled instruction and modifications required from 2 clinicians due to pt's oxygen needs and fatigue level. PT focusing on ambulation, transfers and mobility while OT focusing on ADLs, B UE placement during functional mobility and balance during ADL tasks. Assessment Current Status: Good Progress Pt cristal. tx well, still needing O2 and becomes fatigued at times but has gained strength, increased activity tolerance & independence of task. PT Short Term Goals Short Term Goals Time Frame: Nov 27, 2020 Roll Left & Right: 3 Sit to lyin Lying to sitting on side of be: 3 Sit to stand: 3 Chair/dhs-sr-zpuxe transfer: 3 Walk 10 feet: 3 PT Woods Overseer Goals Assisted Goals PT Assisted Goals Time Frame: Dec 11, 2020 Roll Left & Right (QC): 4 Sit to Lying (QC): 4 Lying-Sitting on Side/Bed(QC): 4 Sit to Stand (QC): 4 Chair/Dqn-mq-Oqubv Xfer(QC): 4 Toilet Transfer (QC): 4 Car Transfer (QC): 3 Does the Patient Walk: Yes Walk 10 feet (QC): 3 Walk 50ft with 2 Turns (QC): 3 Walk 150 ft (QC): 88 Walking 10ft on Uneven Surface: 3 1 Step (curb) (QC): 3 4 Steps (QC): 88 12 Steps (QC): 88 Picking up an Object (QC): 88 Wheel 50 feet with 2 turns (QC: 6 Wheel 150 feet: 6 PT Plan Problem List Problem List: Activity Tolerance Treatment/Plan Treatment Plan: Continue Plan of Care Treatment Plan: Bed Mobility, Education, Functional Activity Leti, Functional Strength, Group Therapy, Gait, Safety, Therapeutic Exercise, Transfers Treatment Duration: Dec 11, 2020 Frequency: Modified Program (IRF) Estimated Hrs Per Day: 1 hour per day (increase as able) Patient and/or Family Agrees t: Yes Safety Risks/Education Patient Education: Transfer Techniques, Correct Positioning, Safety Issues Teaching Recipient: Patient Teaching Methods: Discussion Response to Teaching: Verbalize Understanding Time/GCodes Time In: 1100 Time Out: 1200 Total Billed Treatment Time: 60 Total Billed Treatment 1, FA x4 (60m) Co-treat w/OT for 60m ([id number]) KARYN BAKER PTA Dec 26, 2020 11:31
--- NOTE | 2020-12-26 11:34 | NUR ---
PT WAS PLACED ON RA AND TEN MINUTES AFTER BEING ON RA THE PT DESATED BELOW 88%. PT WAS PLACED BACK ON 2L AT THIS TIME. Addendum: 12/26/20 at 1134 by GRACE LANG RT Amended: Links added.
--- NOTE | 2020-12-26 12:06 | PM&R Progress Note ---
Subjective HPI/CC On Admission Date Seen by Provider: Dec 26, 2020 Time Seen by Provider: 12:30 Subjective/Events-last exam 12/26/20: Discharge in the morning, I went ahead and ordered the two liters of continuous oxygen he would need Will do home health also 12/25/20: Family training went very well Discharging on Wednesday Overall feels really good about that plan 12/24/20: Bowels moved yesterday Tylenol ordered No falls Feels like he is doing pretty well Met at bedside today for family training 12/23/20: Pt voiding very well Fall yesterday on his buttocks No significant pain Bowels moved yesterday CT Scan was reviewed from Dr. Khan, the high resolution type and we talked about the bullae 12/22/20: No blood in urine now No pain urinating No PVR Less frequency Had a non-injury fall backwards today 12/21/20: Transferring well Ambulating very well Doing well overall Hematuria remains 12/20/20: Much improved ambulation Less hematuria Dysuria still BM+ Talked about COVID vaccine 12/19/20: Valdes was discontinued and hes going to urinate every hour Updated Dr. Marsh Bowels moved yesterday Conferred with Dr. Marsh at the bedside with the patient 12/18/20: Bowels are moving today Passed a clot in the urine today Hemorrhoid cream will be provided Catheter was removed today per Dr. Marsh 12/17/20: Catheter will be taken out tomorrow Has not required continuous bladder irrigation Bowels are moving pretty well Overall participating in therapy and getting stronger 12/16/20: Hgb 9.4 Getting ready to stand with walker and help Valdes Catheter still in place, will remove on Wednesday per urology Checked meds and labs 12/15/20: Doing well BM after suppository Valdes in place no hematuria Bed lamar for BM 12/14/20: No longer taking Belladonna supp Urine cleared TBI DC Improved overall Holding OAC 12/13/20: Dr Marsh assessed him to be doing well Slowing the CBI O2 2L/min wbc 11 Belladonna supp help his pain 12/12/20: s/p TURP Belladonna supp for pain Monitor labs Holding OAC Levaquin 500mg daily Appreciate Dr Marsh 12/10/20: TURP scheduled for tomorrow morning Receiving two units of blood in preparation for the surgery since there is blood loss during the surgery Remains on two liters of oxygen Overall feels like he is doing really well 12/09/20: Bowels moved after suppository yesterday Holding anticoagulation for TURP Hgb 8.7 s/p five doses of Venofer Overall feels pretty good 12/08/20: MRSA of sputum still present TURP Wed Holding OAC now for surgery Standing a bit on his own with sit to stand 12/07/20: Second sputum done and pending BM incontinent Hold Eliquis tomorrow in prep for TURP 2L/min O2 maintained Sit to stand is helpful 12/06/20/: Steady improvement Dr Pritchett Wednesday for toenail care Second sputum pending to get out of isolation BM today 12/05/20: BM today 2L/min BP low so will monitor closely Improved transfers Updated patient and his who was on the phone 12/04/20: Pt slept very well again Coughing up a little bit more sputum that does show MRSA and ESBL, will remain in isolation Valdes is back in Will have TURP on Wednesday, holding Eliquis on Wednesday Incontinence of bowels is noted Overall extremely improved 12/03/20: Discontinued catheter yesterday by Dr. 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 Up in chair today BM++ Good outlook O2 at 3L/min Increase O2 during therapies 11/29/20: No new issues Midline was placed now flushes maintained Much improved status Down to 1 L of oxygen Increased oxygen requirement with exercise Still with Valdes catheter in place Upright in wheelchair today Dramatic improvement 11/28/20: Slept a bit better Midline for Venofer will be placed Much improved status BSC today Valdes cath replaced 11/27/20: Pt remains on 1 liter per minute of oxygen Appears to be much improved today Cystoscope done today showing large prostate Proscar along with Flomax was initiated Cath was done and obtained 1000cc of urine Nystatin cream and powder will be initiated Overall much improved 11/26/20: Pt did not sleep last night due to urinary frequency Had to do straight in and out cath x4 last night Dr. Marsh will be updated Blood in the urine 1 liter of O2 now but will need a higher level when he is working out CT chest and ABG reviewed 11/25/20: ABG is pending from not being drawn yet CT of the chest will be performed, Dr. Schrader has been updated Bowels moved yesterday 11/24/20: Venofer IV started and I explained why I started that for him Will check CT scan of chest tomorrow and consult Dr Schrader Labs and ABG ordered as well Still very tachypneic with conversation and at rest Monitoring BP 2L/min 11/23/20: No orthostasis today Worked with PT OT BM++ O2 maintained 11/22/20: Hgb 8.6 today Feels better since IVF 500cc yesterday and changed cardiac meds by Dr Cisneros [place] was born and he is thrilled about that Valdes cath still in place Fecal incontinence noted RT left him without O2 since he was good BRIEFLY on room air after Nebs for 1 hour and spot checked and he was at 85% and he was very short of breath just resting 11/21/20: Had episode of hypotension 76/40 with symptoms when got to edge of bed so laid back down, Cardiology notified and given 500cc of IVF Patient is on a waiver due to COVID and hypoxia for slow therapy and only 120 minutes per day Cardizem CD 120mg now after changed by Dr Cisneros ECHO done Stopped Lasix Valdes cath remains in place Review of Systems General: Fatigue, Malaise Objective Exam Vital Signs Vital Signs Date Time Temp Pulse Resp B/P (MAP) Pulse Ox O2 Delivery O2 Flow Rate FiO2 12/26/20 20:10 Nasal Cannula 2.00 12/26/20 19:44 97 12/26/20 18:00 37.0 87 18 108/67 (81) Capillary Refill : Less Than 3 Seconds General Appearance: No Apparent Distress, WD/WN, Chronically ill, Thin HEENT: PERRL/EOMI, Normal ENT Inspection, Pharynx Normal Neck: Full Range of Motion, Normal Inspection, Non Tender, Supple, Carotid Bruit Respiratory: Chest Non Tender, Lungs Clear, No Respiratory Distress, Accessory Muscle Use, Decreased Breath Sounds Cardiovascular: Regular Rate, Rhythm, No Edema, No Gallop, No JVD, No Murmur, Normal Peripheral Pulses Gastrointestinal: Normal Bowel Sounds, No Organomegaly, No Pulsatile Mass, Non Tender, Soft Back: Normal Inspection, No CVA Tenderness, No Vertebral Tenderness Extremity: Normal Capillary Refill, Normal Inspection, Normal Range of Motion, Non Tender, No Calf Tenderness, No Pedal Edema Neurologic/Psychiatric: Alert, Oriented x3, No Motor/Sensory Deficits, Normal Mood/Affect, Motor Weakness Skin: Normal Color, Warm/Dry Lymphatic: No Adenopathy Results/Procedures Lab Patient resulted labs reviewed. FIM Transfers Therapy Code Descriptions/Definitions Functional [place] Measure: 0=Not Assessed/NA 4=Minimal Assistance 1=Total Assistance 5=Supervision or Setup 2=Maximal Assistance 6=Modified [place] 3=Moderate Assistance 7=Complete IndependenceSCALE: Activities may be completed with or without assistive devices. 9-Jcjybmeugx-fdrwmsw completes the activity by him/herself with no assistance from a helper. 5-Set-up or Clean-up Assistance-helper sets up or cleans up; patient completes activity. [place] assists only prior to or following the activity. 4-Supervision or Touching Assistance-helper provides verbal cues and/or touching/steadying and/or contact guard assistance as patient completes activity. Assistance may be provided throughout the activity or intermittently. 3-Partial/Moderate Assistance-helper does LESS THAN HALF the effort. [place] lifts, holds or supports trunk or limbs, but provides less than half the effort. 2-Substantial/Maximal Assistance-helper does MORE THAN HALF the effort. [place] lifts or holds trunk or limbs and provides more than half the effort. 3-Hoycfibaq-zdgvvc does ALL the effort. Patient does none of the effort to complete the activity. Or, the assistance of 2 or more helpers is required for the patient to complete the activity. If activity was not attempted, code reason: 7-Patient Refused. 9-Not Applicable-not attempted and the patient did not perform the activity before the current illness, exacerbation or injury. 10-Not Attempted due to Environmental Limitations-(lack of equipment, weather restraints, etc.). 88-Not Attempted due to Medical Conditions or Safety Concerns. Roll Left to Right (QC): 5 Sit to Lying (QC): 5 Sit to Stand (QC): 5 Chair/Hwo-dh-Hhgmd Xfer(QC): 5 Car Transfer (QC): 2 Gait Training Does the Patient Walk?: Yes Distance: 36' & 50+' Walk 10 feet (QC): 4 Walk 50 ft with 2 Turns(QC): 4 Walk 150 ft (QC): 88 Walking 10ft/uneven surface-QC: 88 Gait Persons Needed: 1 Gait Assistive Device: FWW Wheelchair Training Wheel 50 ft with 2 turns (QC): 6 Wheel 150 ft (QC): 6 Stair Training 1 Step (curb) (QC): 88 4 Steps (QC): 88 12 Steps (QC): 88 Balance Picking up an Object (QC): 88 ADL-Treatment Eating (QC): 6 (Pt able to set up and use regular utensils independently.) Oral Hygiene (QC): 6 Bathing Location: L Arm, R Arm, L Upper Leg, R Upper Leg, L Lower Leg (including foot), R Lower Leg (including foot), Chest, Abdomen, Buttocks (Min A to stabilize in standing), Perineal Area Shower/Bathe Self (QC): 6 Upper Body Dressing (QC): 6 Lower Body Dressing (QC): 4 On/Off Footwear (QC): 3 Toileting Hygiene (QC): 4 (SBA using grabbars and BSC) Toilet Transfer (QC): 4 (SBA using grabbars and BSC) Assessment/Plan Assessment and Plan Assess & Plan/Chief Complaint Assessment: Myopathy COVID-19 PNA Urinary retention Valdes cath in place Bowel incontinence Hypoxia O2 dependent BPH Frail Advanced age Sputum colonized with MRSA and ESBL Plan: IRF protocol but 120 minutes per day to accommodate hypoxia at activity [place] meds Melatonin at night 11/21/20: s/o IVF Monitor hypotension and hypoxia Appreciate Dr Cisneros ECHO done Add Remeron for sleep with Melatonin 11/22/20: No possibility of weaning O2 for now with this patient so needs on 21/06 and will update RT Increase activity 11/23/20: Maintain O2 Nebs Monitor BP 11/24/20: Venofer Labs and ABG and CT chest in am Dr Schrader consultation Maintain O2 Very fragile lungs 11/25/20: CT chest ABG Dr Schrader consultation 11/26/20: Dr Schrader appreciated Dr Marsh appreciated 11/27/20: Dr Marsh appreciated Monitor O2 11/28/20: Valdes cath in place Midline Venofer 11/29/20: Midline flushes Venofer Monitor closely Dramatic improvement 11/30/20: Dramatic improvement continues Monitor closely Increase O2 with therapy 12/01/20: Bowel incontinence could complicate DC plans Monitor urinary retention closely 12/02/20: Manage B/B incontinence Improved status Labs good 12/03/20: Improved insomnia Continue treatment B/B incontinence 12/04/20: TURP next Wed Hold OAC as of Wednesday Conferred with Dr Marsh and patient 12/05/20: Improved transfers Monitor closely O2 Incontinence management 12/06/20: Steady improvement TURP Wed Hold OAC as of Wednesday morning 12/07/20: Await second sputum Monitor closely O2 BM 12/08/20: TURP Wed Hold OAC Monitor closely Labs in am 12/09/20: TURP Wednesday Monitor closely 12/10/20: TURP tomorrow Monitor closely 2 units of blood today 12/12/20: Belladonna suppositories Monitor labs Hold OAC 12/13/20: Dr Marsh appreciated Pain control O2 Monitor closely 12/14/20: Monitor hematuria Pain control from TURP Continue therapy 12/15/20: BM regimen Monitor valdes cath Hold OAC 12/16/20: Ambulating Participating with therapy Valdes out tomorrow? 12/17/20: DC catheter tomorrow Monitor pain O2 wean 12/18/20: Monitor closely Dramatic improvement DC catheter 12/19/20: Improved overall Walking well Hematuria improved Voiding spontaneously 12/20/20: COVID vaccine discussed Monitor pain with urination Ambulating well 12/21/20: Monitor hematuria Fall risk Pain control 12/22/20: Fall noted today Monitor hematuria Doing well from TURP Reviewed notes from Dr Khan about the "hole" in his lung per patient 12/23/20: Monitor urination Increase stamina Patient has long standing lung issues prior to COVID 12/24/20: Monitor urination Increase ambulation Family training 12/25/20: DC Wednesday Excellent recovery 12/26/20: DC tomorrow (1) Myopathy (2) COVID-19 (3) Hypoxia (4) Urinary retention (5) Valdes catheter in place (6) BPH (benign prostatic hyperplasia) (7) Bowel incontinence (8) Supplemental oxygen dependent (9) Advanced age (10) Frailty BARB COLLINS DO Dec 26, 2020 12:05
--- NOTE | 2020-12-26 12:09 | D/C HH Face to Face Order ---
D/C Face to Face Orders Reconcile Patient Problems Problems Reviewed?: Yes Instructions for Patient Home Health Patient Instructions/FollowUp: PCP 1 week Physician to follow Patient: PCP Discharge Diet for Home: No Restrictions Patient Problems: s/p COVID 102 days in hospital COPD New home O2 s/p TURP Goals for Patient: [place] Patient Data-Allergies,Ht & Wt Patient Allergies: Uncoded Allergies: WASPS (Allergy, Unknown, 11/27/20) Home Health Need/Face to Face Date of Face to Face: Dec 26, 2020 Clinical Findings: Generalized weakness and fatigue, Instability, Muscle weakness, Shortness of breath, Unsteady gait I have seen Pt [id number]: Yes Discharged To: Home Diagnosis/Conditions: s/p COVID 102 days in hospital COPD New home O2 s/p TURP Patient is Homebound due to: Efren fall risk due to instabilty, Muscle weakness Homebound Status Due to the above stated illness, injury or surgical procedure (medical condition or diagnosis) and associated clinical findings, the patient is homebound because of his/her inability to leave home except with aid of a supportive device and/or person AND leaving the home requires a considerable and taxing effort or is medically contraindicated. Pt req the following assistanc: Walker Home Health Nursing Orders Home Health Services Order: Nursing Services, Elevator Operator-Evaluate & Treat, Physical Therapy-Evaluate & Treat Home Health Infusion Therapy Line Start Date: Dec 10, 2020 Certify Stmt I certify that this patient is under my care and that I, a nurse practitioner or a physician; a orthodontic assistant working with me, had a face to face encounter that - meets the physician face to face encounter requirements with this patient as dated. BARB COLLINS DO Dec 26, 2020 12:09
--- NOTE | 2020-12-26 15:06 | Physical Therapy Daily Note ---
PT Daily Note-Current Subjective Pt sitting up in recliner upon arrival. Pt agrees to PT to finish QC scoring from morning tx. Pain Location: No Pain Reported Mental Status Patient Orientation: Person, Place, Time, Situation Attachments: Oxygen (2L) Transfers SCALE: Activities may be completed with or without assistive devices. 2-Qeoevqbhbp-ykfarun completes the activity by him/herself with no assistance from a helper. 5-Set-up or Clean-up Assistance-helper sets up or cleans up; patient completes activity. [place] assists only prior to or following the activity. 4-Supervision or Touching Assistance-helper provides verbal cues and/or touching/steadying and/or contact guard assistance as patient completes activi ty. Assistance may be provided throughout the activity or intermittently. 3-Partial/Moderate Assistance-helper does LESS THAN HALF the effort. [place] lifts, holds or supports trunk or limbs, but provides less than half the effort. 2-Substantial/Maximal Assistance-helper does MORE THAN HALF the effort. [place] lifts or holds trunk or limbs and provides more than half the effort. 2-Emsqmhjvq-mcytrk does ALL the effort. Patient does none of the effort to complete the activity. Or, the assistance of 2 or more helpers is required for the patient to complete the activity. If activity was not attempted, code reason: 7-Patient Refused. 9-Not Applicable-not attempted and the patient did not perform the activity before the current illness, exacerbation or injury. 10-Not Attempted due to Environmental Limitations-(lack of equipment, weather restraints, etc.). 88-Not Attempted due to Medical Conditions or Safety Concerns. Sit to Lying (QC): 5 Sit to Stand (QC): 5 Weight Bearing Full Weight Bearing Full Weight Bearing Gait Training Does the Patient Walk?: Yes Distance: 200', 150' Walk 10 feet (QC): 5 Walk 50 ft with 2 Turns(QC): 5 Walk 150 ft (QC): 5 Walking 10ft/uneven surface-QC: 5 Gait Persons Needed: 1 Gait Assistive Device: FWW Treatments TF to standing and amb. in hallway including on varying surface (carpet), taking only a couple of RB. Pt returns to bed to rest with all needs met, including call light in hand. Assessment Current Status: Good Progress Pt continues to work on activity tolerance with upright activity. PT Short Term Goals Short Term Goals Time Frame: Nov 27, 2020 Roll Left & Right: 3 Sit to lyin Lying to sitting on side of be: 3 Sit to stand: 3 Chair/hap-pc-fpqwn transfer: 3 Walk 10 feet: 3 PT Usp Goals Welfare [facility] Manager Goals PT Usp Goals Time Frame: Dec 11, 2020 Roll Left & Right (QC): 4 Sit to Lying (QC): 4 Lying-Sitting on Side/Bed(QC): 4 Sit to Stand (QC): 4 Chair/Kuw-el-Zuhwl Xfer(QC): 4 Toilet Transfer (QC): 4 Car Transfer (QC): 3 Does the Patient Walk: Yes Walk 10 feet (QC): 3 Walk 50ft with 2 Turns (QC): 3 Walk 150 ft (QC): 88 Walking 10ft on Uneven Surface: 3 1 Step (curb) (QC): 3 4 Steps (QC): 88 12 Steps (QC): 88 Picking up an Object (QC): 88 Wheel 50 feet with 2 turns (QC: 6 Wheel 150 feet: 6 PT Plan Problem List Problem List: Activity Tolerance Treatment/Plan Treatment Plan: Continue Plan of Care Treatment Plan: Bed Mobility, Education, Functional Activity Leti, Functional Strength, Group Therapy, Gait, Safety, Therapeutic Exercise, Transfers Treatment Duration: Dec 11, 2020 Frequency: Modified Program (IRF) Estimated Hrs Per Day: 1 hour per day (increase as able) Patient and/or Family Agrees t: Yes Safety Risks/Education Patient Education: Gait Training, Transfer Techniques, Correct Positioning, Safety Issues Teaching Recipient: Patient Teaching Methods: Discussion Response to Teaching: Verbalize Understanding Time/GCodes Time In: 1345 Time Out: 1415 Total Billed Treatment Time: 30 Total Billed Treatment 1, GT x2 (30m) KARYN BAKER PTA Dec 26, 2020 15:05
--- NOTE | 2020-12-26 16:47 | NUR ---
CM/SS DISCHARGE Finalizing discharge for tomorrow when patient will return home with his spouse Opal. HHC: [email or web address] [facility] in [place] for RN PT OT. Will forward discharge orders and instructions once they are available. DME: New home O2 2L continuous arranged through Opal's choice agency, [facility] in [place]. Agency understands to work directly with Opal regarding all arrangements regarding her bringing portable here for transport home and the overall home setup. IMM2 presented, discussed, verbal approval for signature accepted due to patient being in droplet isolation. Conclude arrangements tomorrow.
[2020-12-26 18:00] VITALS: BP 108/67
[2020-12-26] MEDS: MELATONIN 10 MG TABLET PO SCH (20:54)
[2020-12-26] MEDS: MIRTAZAPINE 15 MG (REMERON) TAB PO SCH (20:55)
[2020-12-26] MEDS ORDERED: MELA10TA2 PO (21:05)
[2020-12-26] MEDS ORDERED: APIX5TAB PO (21:05)
[2020-12-26] MEDS ORDERED: FOLI1TAB33 PO (21:05)
[2020-12-26] MEDS ORDERED: SODI0.5GEL TOP (21:05)
[2020-12-26] MEDS ORDERED: PANT40TA52 PO (21:05)
[2020-12-26] MEDS ORDERED: TMSL.4C PO (21:05)
[2020-12-26] MEDS ORDERED: GUAI473L29 PO (21:05)
[2020-12-26] MEDS ORDERED: PHEN57OI24 PR (21:05)
[2020-12-26] MEDS ORDERED: MIRT-47 PO (21:05)
[2020-12-26] MEDS ORDERED: LORA10TA7 PO (21:05)
[2020-12-26] MEDS ORDERED: FLUT12AE4 IH (21:05)
[2020-12-26] MEDS ORDERED: MICO90PO TOP (21:05)
[2020-12-26] MEDS ORDERED: ROFL500T PO (21:05)
[2020-12-26] MEDS ORDERED: CYAN-41 PO (21:05)
[2020-12-26] MEDS ORDERED: IPRA3AMP31 IH (21:05)
[2020-12-26] MEDS ORDERED: RT-ALBUINH IH (21:05)
[2020-12-26] MEDS ORDERED: NYST15CR TP (21:05)
[2020-12-26] MEDS ORDERED: BISA10SU8 PR (21:05)
[2020-12-26] MEDS ORDERED: LACT1CAP7 PO (21:05)
[2020-12-26] MEDS ORDERED: ONDA4TAB11 PO (21:05)
[2020-12-26] MEDS ORDERED: PHEN-826 PO (21:05)
[2020-12-26] MEDS ORDERED: SODI44SP2 (21:05)
[2020-12-26] MEDS ORDERED: FINA5TAB6 PO (21:05)
[2020-12-26] MEDS ORDERED: ZINC28PA TOP (21:05)
[2020-12-26] MEDS ORDERED: MONT10TA97 PO (21:05)
[2020-12-26] MEDS ORDERED: PRD10T PO (21:05)
[2020-12-26] MEDS ORDERED: METO-333 PO (21:05)
[2020-12-26] MEDS ORDERED: ALPR.25T PO (21:05)
[2020-12-26] MEDS ORDERED: SIMV40TA25 PO (21:05)
[2020-12-27] MEDS: ACETAMINOPHEN 325 MG TABLET PO PRN ×2 (01:16→09:19)
--- NOTE | 2020-12-27 06:11 | Discharge Summary ---
Diagnosis/Chief Complaint Date of Admission Nov 20, 2020 at 11:10 Date of Discharge Discharge Date: Dec 27, 2020 Discharge Diagnosis Assessment: Myopathy COVID-19 PNA Urinary retention Valdes cath in place Bowel incontinence Hypoxia O2 dependent BPH Frail Advanced age Sputum colonized with MRSA and ESBL Plan: IRF protocol but 120 minutes per day to accommodate hypoxia at activity [place] meds Melatonin at night 11/21/20: s/o IVF Monitor hypotension and hypoxia Appreciate Dr Cisneros ECHO done Add Remeron for sleep with Melatonin 11/22/20: No possibility of weaning O2 for now with this patient so needs on 21/06 and will update RT Increase activity 11/23/20: Maintain O2 Nebs Monitor BP 11/24/20: Venofer Labs and ABG and CT chest in am Dr Schrader consultation Maintain O2 Very fragile lungs 11/25/20: CT chest ABG Dr Schrader consultation 11/26/20: Dr Schrader appreciated Dr Marsh appreciated 11/27/20: Dr Marsh appreciated Monitor O2 11/28/20: Valdes cath in place Midline Venofer 11/29/20: Midline flushes Venofer Monitor closely Dramatic improvement 11/30/20: Dramatic improvement continues Monitor closely Increase O2 with therapy 12/01/20: Bowel incontinence could complicate DC plans Monitor urinary retention closely 12/02/20: Manage B/B incontinence Improved status Labs good 12/03/20: Improved insomnia Continue treatment B/B incontinence 12/04/20: TURP next Wed Hold OAC as of Wednesday Conferred with Dr Marsh and patient 12/05/20: Improved transfers Monitor closely O2 Incontinence management 12/06/20: Steady improvement TURP Wed Hold OAC as of Wednesday morning 12/07/20: Await second sputum Monitor closely O2 BM 12/08/20: TURP Wed Hold OAC Monitor closely Labs in am 12/09/20: TURP Wednesday Monitor closely 12/10/20: TURP tomorrow Monitor closely 2 units of blood today 12/12/20: Belladonna suppositories Monitor labs Hold OAC 12/13/20: Dr Marsh appreciated Pain control O2 Monitor closely 12/14/20: Monitor hematuria Pain control from TURP Continue therapy 12/15/20: BM regimen Monitor valdes cath Hold OAC 12/16/20: Ambulating Participating with therapy Valdes out tomorrow? 12/17/20: DC catheter tomorrow Monitor pain O2 wean 12/18/20: Monitor closely Dramatic improvement DC catheter 12/19/20: Improved overall Walking well Hematuria improved Voiding spontaneously 12/20/20: COVID vaccine discussed Monitor pain with urination Ambulating well 12/21/20: Monitor hematuria Fall risk Pain control 12/22/20: Fall noted today Monitor hematuria Doing well from TURP Reviewed notes from Dr Khan about the "hole" in his lung per patient 12/23/20: Monitor urination Increase stamina Patient has long standing lung issues prior to COVID 12/24/20: Monitor urination Increase ambulation Family training 12/25/20: DC Wednesday Excellent recovery (1) Myopathy (2) COVID-19 (3) Hypoxia (4) Urinary retention (5) Valdes catheter in place (6) BPH (benign prostatic hyperplasia) (7) Bowel incontinence (8) Supplemental oxygen dependent (9) Advanced age (10) Frailty Discharge Summary Discharge Physical Examination Allergies: Uncoded Allergies: WASPS (Allergy, Unknown, 11/27/20) Vitals & I&Os Vital Signs Date Time Temp Pulse Resp B/P (MAP) Pulse Ox O2 Delivery O2 Flow Rate FiO2 12/27/20 13:50 36.4 77 16 93/51 94 Nasal Cannula 2.00 General Appearance: Alert, Oriented X3, Cooperative Respiratory: Clear to Auscultation Cardiovascular: Regular Rate Neuro: Normal Gait, Normal Speech, Strength at 5/5 X4 Ext Psych/Mental Status: Mental Status NL Hospital Course Was the Problem List Reviewed?: Yes Lengthy course after arriving from [place] for COVID-19 PNA debility. Patient had indwelling catheter and ultimately required TURP by Dr Marsh with excellent results. OAC was maintained until TURP then restarted [address] Schrader was consulted and patient ultimately regaining function after slow recovery but had excellent recovery and his a retired nurse was aware of his recovery needs and along with she was willing to provide his care at home and he was DC in excellent recovery potential. Labs (last 24 hrs) Laboratory Tests 11/20/20 11:10: Lab Scanned Report Referred Lab Report 11/21/20 05:33: White Blood Count 9.6, Red Blood Count 3.32L, Hemoglobin 9.7L, Hematocrit 31L, Mean Corpuscular Volume 92, Mean Corpuscular Hemoglobin 29, Mean Corpuscular Hemoglobin Concent 32, Red Cell Distribution Width 17.4H, Platelet Count 193, Mean Platelet Volume 9.4, Immature Granulocyte % (Auto) 0, Neutrophils (%) (Auto) 78H, Lymphocytes (%) (Auto) 17, Monocytes (%) (Auto) 4, Eosinophils (%) (Auto) 0, Basophils (%) (Auto) 0, Neutrophils # (Auto) 7.5, Lymphocytes # (Auto) 1.7, Monocytes # (Auto) 0.4, Eosinophils # (Auto) 0.0, Basophils # (Auto) 0.0, Immature Granulocyte # (Auto) 0.0, Sodium Level 134L, Potassium Level 3.7, Chloride Level 101, Carbon Dioxide Level 24, Anion Gap 9, Blood Urea Nitrogen 17, Creatinine 0.58L, Estimat Glomerular Filtration Rate > 60, BUN/Creatinine Ratio 29, Glucose Level 85, Calcium Level 8.2L, Corrected Calcium 9.2, Total Bilirubin 0.6, Aspartate Amino Transf (AST/SGOT) 11, Alanine Aminotransferase (ALT/SGPT) 21, Alkaline Phosphatase 94, Total Protein 5.2L, Albumin 2.7L 11/22/20 06:00: White Blood Count 6.7, Red Blood Count 2.97L, Hemoglobin 8.6L, Hematocrit 28L, Mean Corpuscular Volume 94, Mean Corpuscular Hemoglobin 29, Mean Corpuscular Hemoglobin Concent 31L, Red Cell Distribution Width 17.4H, Platelet Count 166, Mean Platelet Volume 9.4, Immature Granulocyte % (Auto) 1, Neutrophils (%) (Auto) 73, Lymphocytes (%) (Auto) 20, Monocytes (%) (Auto) 6, Eosinophils (%) (Auto) 0, Basophils (%) (Auto) 0, Neutrophils # (Auto) 4.9, Lymphocytes # (Auto) 1.4, Monocytes # (Auto) 0.4, Eosinophils # (Auto) 0.0, Basophils # (Auto) 0.0, Immature Granulocyte # (Auto) 0.0, Sodium Level 134L, Potassium Level 4.3, Chloride Level 101, Carbon Dioxide Level 25, Anion Gap 8, Blood Urea Nitrogen 13, Creatinine 0.53L, Estimat Glomerular Filtration Rate > 60, BUN/Creatinine Ratio 25, Glucose Level 90, Calcium Level 8.1L, Corrected Calcium 9.3, Total Bilirubin 0.6, Aspartate Amino Transf (AST/SGOT) 8, Alanine Aminotransferase (ALT/SGPT) 16, Alkaline Phosphatase 72, Total Protein 4.7L, Albumin 2.5L, Iron Level 22L, Thyroid Stimulating Hormone (TSH) 2.25 11/24/20 05:55: White Blood Count 6.7, Red Blood Count 2.98L, Hemoglobin 8.8L, Hematocrit 28L, Mean Corpuscular Volume 93, Mean Corpuscular Hemoglobin 30, Mean Corpuscular Hemoglobin Concent 32, Red Cell Distribution Width 17.4H, Platelet Count 210, Mean Platelet Volume 9.8, Immature Granulocyte % (Auto) 1, Neutrophils (%) (Auto) 70, Lymphocytes (%) (Auto) 23, Monocytes (%) (Auto) 6, Eosinophils (%) (Auto) 1, Basophils (%) (Auto) 0, Neutrophils # (Auto) 4.7, Lymphocytes # (Auto) 1.5, Monocytes # (Auto) 0.4, Eosinophils # (Auto) 0.0, Basophils # (Auto) 0.0, Immature Granulocyte # (Auto) 0.1, Sodium Level 132L, Potassium Level 4.4, Chloride Level 101, Carbon Dioxide Level 23, Anion Gap 8, Blood Urea Nitrogen 12, Creatinine 0.54L, Estimat Glomerular Filtration Rate > 60, BUN/Creatinine Ratio 22, Glucose Level 87, Calcium Level 8.3L, Corrected Calcium 9.4, Total Bilirubin 0.5, Aspartate Amino Transf (AST/SGOT) 10, Alanine Aminotransferase (ALT/SGPT) 17, Alkaline Phosphatase 74, Total Protein 5.0L, Albumin 2.6L 11/25/20 05:45: White Blood Count 7.5, Red Blood Count 3.09L, Hemoglobin 9.0L, Hematocrit 28L, Mean Corpuscular Volume 92, Mean Corpuscular Hemoglobin 29, Mean Corpuscular Hemoglobin Concent 32, Red Cell Distribution Width 17.3H, Platelet Count 221, Mean Platelet Volume 9.2, Immature Granulocyte % (Auto) 1, Neutrophils (%) (Auto) 71, Lymphocytes (%) (Auto) 21, Monocytes (%) (Auto) 6, Eosinophils (%) (Auto) 1, Basophils (%) (Auto) 0, Neutrophils # (Auto) 5.3, Lymphocytes # (Auto) 1.6, Monocytes # (Auto) 0.5, Eosinophils # (Auto) 0.1, Basophils # (Auto) 0.0, Immature Granulocyte # (Auto) 0.1, Sodium Level 135, Potassium Level 4.0, Chloride Level 104, Carbon Dioxide Level 24, Anion Gap 7, Blood Urea Nitrogen 14, Creatinine 0.60, Estimat Glomerular Filtration Rate > 60, BUN/Creatinine Ratio 23, Glucose Level 95, Calcium Level 8.3L, Corrected Calcium 9.6, Total Bilirubin 0.4, Aspartate Amino Transf (AST/SGOT) 8, Alanine Aminotransferase (ALT/SGPT) 14, Alkaline Phosphatase 80, Total Protein 5.0L, Albumin 2.4L 11/25/20 09:20: Blood Gas Puncture Site RR, Blood Gas Patient Temperature 37.0, Arterial Blood pH 7.47H, Arterial Blood Partial Pressure CO2 34L, Arterial Blood Partial Pressure O2 73L, Arterial Blood HCO3 25, Arterial Blood Total CO2 25.7, Arterial Blood Oxygen Saturation 95, Arterial Blood Base Excess 1.2, Sharif Test YES-POS, Blood Gas Ventilator Setting NO, Blood Gas Inspired Oxygen 1L 12/02/20 05:30: White Blood Count 7.6, Red Blood Count 3.28L, Hemoglobin 9.4L, Hematocrit 31L, Mean Corpuscular Volume 93, Mean Corpuscular Hemoglobin 29, Mean Corpuscular Hemoglobin Concent 31L, Red Cell Distribution Width 17.5H, Platelet Count 200, Mean Platelet Volume 8.7L, Immature Granulocyte % (Auto) 4, Neutrophils (%) (Auto) 68, Lymphocytes (%) (Auto) 23, Monocytes (%) (Auto) 5, Eosinophils (%) (Auto) 0, Basophils (%) (Auto) 0, Neutrophils # (Auto) 5.2, Lymphocytes # (Auto) 1.8, Monocytes # (Auto) 0.4, Eosinophils # (Auto) 0.0, Basophils # (Auto) 0.0, Immature Granulocyte # (Auto) 0.3H, Sodium Level 137, Potassium Level 4.1, Chloride Level 104, Carbon Dioxide Level 25, Anion Gap 8, Blood Urea Nitrogen 13, Creatinine 0.59L, Estimat Glomerular Filtration Rate > 60, BUN/Creatinine Ratio 22, Glucose Level 87, Calcium Level 8.1L, Corrected Calcium 9.3, Total Bilirubin 0.2, Aspartate Amino Transf (AST/SGOT) 12, Alanine Aminotransferase (ALT/SGPT) 36, Alkaline Phosphatase 108, Total Protein 4.9L, Albumin 2.5L 12/09/20 05:00: White Blood Count 8.3, Red Blood Count 3.04L, Hemoglobin 8.7L, Hematocrit 29L, Mean Corpuscular Volume 94, Mean Corpuscular Hemoglobin 29, Mean Corpuscular Hemoglobin Concent 30L, Red Cell Distribution Width 17.2H, Platelet Count 250, Mean Platelet Volume 9.0, Immature Granulocyte % (Auto) 2, Neutrophils (%) (Auto) 67, Lymphocytes (%) (Auto) 24, Monocytes (%) (Auto) 7, Eosinophils (%) (Auto) 0, Basophils (%) (Auto) 1, Neutrophils # (Auto) 5.5, Lymphocytes # (Auto) 2.0, Monocytes # (Auto) 0.6, Eosinophils # (Auto) 0.0, Basophils # (Auto) 0.1, Immature Granulocyte # (Auto) 0.2H, Sodium Level 138, Potassium Level 4.2, Chloride Level 105, Carbon Dioxide Level 25, Anion Gap 8, Blood Urea Nitrogen 21H, Creatinine 0.69, Estimat Glomerular Filtration Rate > 60, BUN/Creatinine Ratio 30, Glucose Level 109H, Calcium Level 8.5, Corrected Calcium 9.5, Total Bilirubin 0.2, Aspartate Amino Transf (AST/SGOT) 10, Alanine Aminotransferase (ALT/SGPT) 18, Alkaline Phosphatase 92, Total Protein 5.3L, Albumin 2.7L 12/13/20 06:50: White Blood Count 11.1H, Red Blood Count 3.22L, Hemoglobin 9.6L, Hematocrit 30L, Mean Corpuscular Volume 94, Mean Corpuscular Hemoglobin 30, Mean Corpuscular Hemoglobin Concent 32, Red Cell Distribution Width 16.7H, Platelet Count 247, Mean Platelet Volume 8.6L, Immature Granulocyte % (Auto) 3, Neutrophils (%) (Auto) 62, Lymphocytes (%) (Auto) 27, Monocytes (%) (Auto) 6, Eosinophils (%) (Auto) 1, Basophils (%) (Auto) 1, Neutrophils # (Auto) 6.9, Lymphocytes # (Auto) 3.0, Monocytes # (Auto) 0.7, Eosinophils # (Auto) 0.1, Basophils # (Auto) 0.1, Immature Granulocyte # (Auto) 0.4H, Sodium Level 136, Potassium Level 4.1, Chlo ride Level 105, Carbon Dioxide Level 23, Anion Gap 8, Blood Urea Nitrogen 18, Creatinine 0.65, Estimat Glomerular Filtration Rate > 60, BUN/Creatinine Ratio 28, Glucose Level 91, Calcium Level 8.5, Corrected Calcium 9.8, Total Bilirubin 0.3, Aspartate Amino Transf (AST/SGOT) 11, Alanine Aminotransferase (ALT/SGPT) 13, Alkaline Phosphatase 77, Total Protein 4.6L, Albumin 2.4L 12/14/20 05:50: White Blood Count 8.7, Red Blood Count 3.05L, Hemoglobin 9.1L, Hematocrit 29L, Mean Corpuscular Volume 94, Mean Corpuscular Hemoglobin 30, Mean Corpuscular Hemoglobin Concent 32, Red Cell Distribution Width 16.6H, Platelet Count 219, Mean Platelet Volume 8.8L, Immature Granulocyte % (Auto) 4, Neutrophils (%) (Auto) 58, Lymphocytes (%) (Auto) 31, Monocytes (%) (Auto) 6, Eosinophils (%) (Auto) 1, Basophils (%) (Auto) 1, Neutrophils # (Auto) 5.0, Lymphocytes # (Auto) 2.7, Monocytes # (Auto) 0.5, Eosinophils # (Auto) 0.1, Basophils # (Auto) 0.1, Immature Granulocyte # (Auto) 0.3H, Sodium Level 139, Potassium Level 3.9, Chloride Level 106, Carbon Dioxide Level 25, Anion Gap 8, Blood Urea Nitrogen 14, Creatinine 0.66, Estimat Glomerular Filtration Rate > 60, BUN/Creatinine Ratio 21, Glucose Level 93, Calcium Level 8.3L, Neutrophils % (Manual) 64, Lymphocytes % (Manual) 27, Monocytes % (Manual) 7, Eosinophils % (Manual) 1, Atypical Lymphocytes 1, Polychromasia SLIGHT, Anisocytosis SLIGHT, Microcytosis SLIGHT 12/16/20 05:40: White Blood Count 8.4, Red Blood Count 3.19L, Hemoglobin 9.4L, Hematocrit 30L, Mean Corpuscular Volume 95, Mean Corpuscular Hemoglobin 30, Mean Corpuscular Hemoglobin Concent 31L, Red Cell Distribution Width 16.3H, Platelet Count 262, Mean Platelet Volume 8.8L, Immature Granulocyte % (Auto) 5, Neutrophils (%) (Auto) 56, Lymphocytes (%) (Auto) 31, Monocytes (%) (Auto) 6, Eosinophils (%) (Auto) 1, Basophils (%) (Auto) 1, Neutrophils # (Auto) 4.7, Lymphocytes # (Auto) 2.7, Monocytes # (Auto) 0.5, Eosinophils # (Auto) 0.1, Basophils # (Auto) 0.1, Immature Granulocyte # (Auto) 0.4H, Sodium Level 140, Potassium Level 4.0, Chloride Level 108H, Carbon Dioxide Level 27, Anion Gap 5, Blood Urea Nitrogen 12, Creatinine 0.69, Estimat Glomerular Filtration Rate > 60, BUN/Creatinine Ratio 17, Glucose Level 91, Calcium Level 8.3L, Corrected Calcium 9.4, Total Bilirubin 0.3, Aspartate Amino Transf (AST/SGOT) 11, Alanine Aminotransferase (ALT/SGPT) 12, Alkaline Phosphatase 88, Total Protein 4.9L, Albumin 2.6L 12/23/20 05:00: White Blood Count 8.1, Red Blood Count 3.00L, Hemoglobin 8.8L, Hematocrit 29L, Mean Corpuscular Volume 97, Mean Corpuscular Hemoglobin 29, Mean Corpuscular Hemoglobin Concent 30L, Red Cell Distribution Width 16.4H, Platelet Count 175, Mean Platelet Volume 9.3, Immature Granulocyte % (Auto) 2, Neutrophils (%) (Auto) 56, Lymphocytes (%) (Auto) 33, Monocytes (%) (Auto) 7, Eosinophils (%) (Auto) 1, Basophils (%) (Auto) 1, Neutrophils # (Auto) 4.5, Lymphocytes # (Auto) 2.7, Monocytes # (Auto) 0.6, Eosinophils # (Auto) 0.1, Basophils # (Auto) 0.0, Immature Granulocyte # (Auto) 0.1 12/23/20 05:20: Sodium Level 141, Potassium Level 4.6, Chloride Level 107, Carbon Dioxide Level 26, Anion Gap 8, Blood Urea Nitrogen 11, Creatinine 0.75, Estimat Glomerular Filtration Rate > 60, BUN/Creatinine Ratio 15, Glucose Level 97, Calcium Level 8.4L, Corrected Calcium 9.4, Total Bilirubin 0.3, Aspartate Amino Transf (AST/SGOT) 9, Alanine Aminotransferase (ALT/SGPT) 9, Alkaline Phosphatase 77, Total Protein 5.0L, Albumin 2.7L Microbiology 12/06/20 Gram Stain - Final, Complete 12/06/20 Sputum Culture - Final, Complete Usual upper respiratory bravo Staphylococcus aureus Probable E.coli Pending Labs Microbiology Date/Time Source Procedure Growth Status 12/06/20 15:23 Sputum Expectorated Gram Stain - Final Complete 12/06/20 15:23 Sputum Culture - Final Usual upper respiratory bravo Staphylococcus aureus Probable E.coli Complete 12/03/20 14:45 Sputum Expectorated Gram Stain - Final Complete 12/03/20 14:45 Sputum Culture - Final Escherichia coli Staphylococcus aureus Usual upper respiratory bravo See Comments Complete Laboratory Tests 11/20/20 11:10: Lab Scanned Report Referred Lab Report 11/21/20 05:33: White Blood Count 9.6, Red Blood Count 3.32, Hemoglobin 9.7, Hematocrit 31, Mean Corpuscular Volume 92, Mean Corpuscular Hemoglobin 29, Mean Corpuscular Hemoglobin Concent 32, Red Cell Distribution Width 17.4, Platelet Count 193, Mean Platelet Volume 9.4, Immature Granulocyte % (Auto) 0, Neutrophils (%) (Auto) 78, Lymphocytes (%) (Auto) 17, Monocytes (%) (Auto) 4, Eosinophils (%) (Auto) 0, Basophils (%) (Auto) 0, Neutrophils # (Auto) 7.5, Lymphocytes # (Auto) 1.7, Monocytes # (Auto) 0.4, Eosinophils # (Auto) 0.0, Basophils # (Auto) 0.0, Immature Granulocyte # (Auto) 0.0, Sodium Level 134, Potassium Level 3.7, Chloride Level 101, Carbon Dioxide Level 24, Anion Gap 9, Blood Urea Nitrogen 17 , Creatinine 0.58, Estimat Glomerular Filtration Rate > 60, BUN/Creatinine Ratio 29, Glucose Level 85, Calcium Level 8.2, Corrected Calcium 9.2, Total Bilirubin 0.6, Aspartate Amino Transf (AST/SGOT) 11, Alanine Aminotransferase (ALT/SGPT) 21, Alkaline Phosphatase 94, Total Protein 5.2, Albumin 2.7 11/22/20 06:00: White Blood Count 6.7, Red Blood Count 2.97, Hemoglobin 8.6, Hematocrit 28, Mean Corpuscular Volume 94, Mean Corpuscular Hemoglobin 29, Mean Corpuscular Hemoglobin Concent 31, Red Cell Distribution Width 17.4, Platelet Count 166, Mean Platelet Volume 9.4, Immature Granulocyte % (Auto) 1, Neutrophils (%) (Auto) 73, Lymphocytes (%) (Auto) 20, Monocytes (%) (Auto) 6, Eosinophils (%) (Auto) 0, Basophils (%) (Auto) 0, Neutrophils # (Auto) 4.9, Lymphocytes # (Auto) 1.4, Monocytes # (Auto) 0.4, Eosinophils # (Auto) 0.0, Basophils # (Auto) 0.0, Immature Granulocyte # (Auto) 0.0, Sodium Level 134, Potassium Level 4.3, Chloride Level 101, Carbon Dioxide Level 25, Anion Gap 8, Blood Urea Nitrogen 13, Creatinine 0.53, Estimat Glomerular Filtration Rate > 60, BUN/Creatinine Ratio 25, Glucose Level 90, Calcium Level 8.1, Corrected Calcium 9.3, Total Bilirubin 0.6, Aspartate Amino Transf (AST/SGOT) 8, Alanine Aminotransferase (ALT/SGPT) 16, Alkaline Phosphatase 72, Total Protein 4.7, Albumin 2.5, Iron Level 22, Thyroid Stimulating Hormone (TSH) 2.25 11/24/20 05:55: White Blood Count 6.7, Red Blood Count 2.98, Hemoglobin 8.8, Hematocrit 28, Mean Corpuscular Volume 93, Mean Corpuscular Hemoglobin 30, Mean Corpuscular Hemoglobin Concent 32, Red Cell Distribution Width 17.4, Platelet Count 210, Mean Platelet Volume 9.8, Immature Granulocyte % (Auto) 1, Neutrophils (%) (Auto) 70, Lymphocytes (%) (Auto) 23, Monocytes (%) (Auto) 6, Eosinophils (%) (Auto) 1, Basophils (%) (Auto) 0, Neutrophils # (Auto) 4.7, Lymphocytes # (Auto) 1.5, Monocytes # (Auto) 0.4, Eosinophils # (Auto) 0.0, Basophils # (Auto) 0.0, Immature Granulocyte # (Auto) 0.1, Sodium Level 132, Potassium Level 4.4, Chlo ride Level 101, Carbon Dioxide Level 23, Anion Gap 8, Blood Urea Nitrogen 12, Creatinine 0.54, Estimat Glomerular Filtration Rate > 60, BUN/Creatinine Ratio 22, Glucose Level 87, Calcium Level 8.3, Corrected Calcium 9.4, Total Bilirubin 0.5, Aspartate Amino Transf (AST/SGOT) 10, Alanine Aminotransferase (ALT/SGPT) 17, Alkaline Phosphatase 74, Total Protein 5.0, Albumin 2.6 11/25/20 05:45: White Blood Count 7.5, Red Blood Count 3.09, Hemoglobin 9.0, Hematocrit 28, Mean Corpuscular Volume 92, Mean Corpuscular Hemoglobin 29, Mean Corpuscular Hemoglobin Concent 32, Red Cell Distribution Width 17.3, Platelet Count 221, Mean Platelet Volume 9.2, Immature Granulocyte % (Auto) 1, Neutrophils (%) (Auto) 71, Lymphocytes (%) (Auto) 21, Monocytes (%) (Auto) 6, Eosinophils (%) (Auto) 1, Basophils (%) (Auto) 0, Neutrophils # (Auto) 5.3, Lymphocytes # (Auto) 1.6, Monocytes # (Auto) 0.5, Eosinophils # (Auto) 0.1, Basophils # (Auto) 0.0, Immature Granulocyte # (Auto) 0.1, Sodium Level 135, Potassium Level 4.0, Chloride Level 104, Carbon Dioxide Level 24, Anion Gap 7, Blood Urea Nitrogen 14, Creatinine 0.60, Estimat Glomerular Filtration Rate > 60, BUN/Creatinine Ratio 23, Glucose Level 95, Calcium Level 8.3, Corrected Calcium 9.6, Total Bilirubin 0.4, Aspartate Amino Transf (AST/SGOT) 8, Alanine Aminotransferase (ALT/SGPT) 14, Alkaline Phosphatase 80, Total Protein 5.0, Albumin 2.4 11/25/20 09:20: Blood Gas Puncture Site RR, Blood Gas Patient Temperature 37.0, Arterial Blood pH 7.47, Arterial Blood Partial Pressure CO2 34, Arterial Blood Partial Pressure O2 73, Arterial Blood HCO3 25, Arterial Blood Total CO2 25.7, Arterial Blood Oxygen Saturation 95, Arterial Blood Base Excess 1.2, Sharif Test YES-POS, Blood Gas Ventilator Setting NO, Blood Gas Inspired Oxygen 1L 12/02/20 05:30: White Blood Count 7.6, Red Blood Count 3.28, Hemoglobin 9.4, Hematocrit 31, Mean Corpuscular Volume 93, Mean Corpuscular Hemoglobin 29, Mean Corpuscular Hemoglobin Concent 31, Red Cell Distribution Width 17.5, Platelet Count 200, Mean Platelet Volume 8.7, Immature Granulocyte % (Auto) 4, Neutrophils (%) (Auto) 68, Lymphocytes (%) (Auto) 23, Monocytes (%) (Auto) 5, Eosinophils (%) (Auto) 0, Basophils (%) (Auto) 0, Neutrophils # (Auto) 5.2, Lymphocytes # (Auto) 1.8, Monocytes # (Auto) 0.4, Eosinophils # (Auto) 0.0, Basophils # (Auto) 0.0, Immature Granulocyte # (Auto) 0.3, Sodium Level 137, Potassium Level 4.1, Chloride Level 104, Carbon Dioxide Level 25, Anion Gap 8, Blood Urea Nitrogen 13, Creatinine 0.59, Estimat Glomerular Filtration Rate > 60, BUN/Creatinine Ratio 22, Glucose Level 87, Calcium Level 8.1, Corrected Calcium 9.3, Total Bilirubin 0.2, Aspartate Amino Transf (AST/SGOT) 12, Alanine Aminotransferase (ALT/SGPT) 36, Alkaline Phosphatase 108, Total Protein 4.9, Albumin 2.5 12/09/20 05:00: White Blood Count 8.3, Red Blood Count 3.04, Hemoglobin 8.7, Hematocrit 29, Mean Corpuscular Volume 94, Mean Corpuscular Hemoglobin 29, Mean Corpuscular Hemoglobin Concent 30, Red Cell Distribution Width 17.2, Platelet Count 250, Mean Platelet Volume 9.0, Immature Granulocyte % (Auto) 2, Neutrophils (%) (Au to) 67, Lymphocytes (%) (Auto) 24, Monocytes (%) (Auto) 7, Eosinophils (%) (Auto) 0, Basophils (%) (Auto) 1, Neutrophils # (Auto) 5.5, Lymphocytes # (Auto) 2.0, Monocytes # (Auto) 0.6, Eosinophils # (Auto) 0.0, Basophils # (Auto) 0.1, Immature Granulocyte # (Auto) 0.2, Sodium Level 138, Potassium Level 4.2, Chloride Level 105, Carbon Dioxide Level 25, Anion Gap 8, Blood Urea Nitrogen 21, Creatinine 0.69, Estimat Glomerular Filtration Rate > 60, BUN/Creatinine Ratio 30, Glucose Level 109, Calcium Level 8.5, Corrected Calcium 9.5, Total Bilirubin 0.2, Aspartate Amino Transf (AST/SGOT) 10, Alanine Aminotransferase (ALT/SGPT) 18, Alkaline Phosphatase 92, Total Protein 5.3, Albumin 2.7 12/13/20 06:50: White Blood Count 11.1, Red Blood Count 3.22, Hemoglobin 9.6, Hematocrit 30, Mean Corpuscular Volume 94, Mean Corpuscular Hemoglobin 30, Mean Corpuscular Hemoglobin Concent 32, Red Cell Distribution Width 16.7, Platelet Count 247, Mean Platelet Volume 8.6, Immature Granulocyte % (Auto) 3, Neutrophils (%) (Auto) 62, Lymphocytes (%) (Auto) 27, Monocytes (%) (Auto) 6, Eosinophils (%) (Auto) 1, Basophils (%) (Auto) 1, Neutrophils # (Auto) 6.9, Lymphocytes # (Auto) 3.0, Monocytes # (Auto) 0.7, Eosinophils # (Auto) 0.1, Basophils # (Auto) 0.1, Immature Granulocyte # (Auto) 0.4, Sodium Level 136, Potassium Level 4.1, Chloride Level 105, Carbon Dioxide Level 23, Anion Gap 8, Blood Urea Nitrogen 18, Creatinine 0.65, Estimat Glomerular Filtration Rate > 60, BUN/Creatinine Ratio 28, Glucose Level 91, Calcium Level 8.5, Corrected Calcium 9.8, Total Bilirubin 0.3, Aspartate Amino Transf (AST/SGOT) 11, Alanine Aminotransferase (ALT/SGPT) 13, Alkaline Phosphatase 77, Total Protein 4.6, Albumin 2.4 12/14/20 05:50: White Blood Count 8.7, Red Blood Count 3.05, Hemoglobin 9.1, Hematocrit 29, Mean Corpuscular Volume 94, Mean Corpuscular Hemoglobin 30, Mean Corpuscular Hemog lobin Concent 32, Red Cell Distribution Width 16.6, Platelet Count 219, Mean Platelet Volume 8.8, Immature Granulocyte % (Auto) 4, Neutrophils (%) (Auto) 58, Lymphocytes (%) (Auto) 31, Monocytes (%) (Auto) 6, Eosinophils (%) (Auto) 1, Basophils (%) (Auto) 1, Neutrophils # (Auto) 5.0, Lymphocytes # (Auto) 2.7, Monocytes # (Auto) 0.5, Eosinophils # (Auto) 0.1, Basophils # (Auto) 0.1, Immature Granulocyte # (Auto) 0.3, Sodium Level 139, Potassium Level 3.9, Chloride Level 106, Carbon Dioxide Level 25, Anion Gap 8, Blood Urea Nitrogen 14, Creatinine 0.66, Estimat Glomerular Filtration Rate > 60, BUN/Creatinine Ratio 21, Glucose Level 93, Calcium Level 8.3, Neutrophils % (Manual) 64, Lymphocytes % (Manual) 27, Monocytes % (Manual) 7, Eosinophils % (Manual) 1, Aty pical Lymphocytes 1, Polychromasia SLIGHT, Anisocytosis SLIGHT, Microcytosis SLIGHT 12/16/20 05:40: White Blood Count 8.4, Red Blood Count 3.19, Hemoglobin 9.4, Hematocrit 30, Mean Corpuscular Volume 95, Mean Corpuscular Hemoglobin 30, Mean Corpuscular Hemoglobin Concent 31, Red Cell Distribution Width 16.3, Platelet Count 262, Mean Platelet Volume 8.8, Immature Granulocyte % (Auto) 5, Neutrophils (%) (Auto) 56, Lymphocytes (%) (Auto) 31, Monocytes (%) (Auto) 6, Eosinophils (%) (Auto) 1, Basophils (%) (Auto) 1, Neutrophils # (Auto) 4.7, Lymphocytes # (Auto) 2.7, Monocytes # (Auto) 0.5, Eosinophils # (Auto) 0.1, Basophils # (Auto) 0.1, Immature Granulocyte # (Auto) 0.4, Sodium Level 140, Potassium Level 4.0, Chloride Level 108, Carbon Dioxide Level 27, Anion Gap 5, Blood Urea Nitrogen 12, Creatinine 0.69, Estimat Glomerular Filtration Rate > 60, BUN/Creatinine Rat io 17, Glucose Level 91, Calcium Level 8.3, Corrected Calcium 9.4, Total Bilirubin 0.3, Aspartate Amino Transf (AST/SGOT) 11, Alanine Aminotransferase (ALT/SGPT) 12, Alkaline Phosphatase 88, Total Protein 4.9, Albumin 2.6 12/23/20 05:00: White Blood Count 8.1, Red Blood Count 3.00, Hemoglobin 8.8, Hematocrit 29, Mean Corpuscular Volume 97, Mean Corpuscular Hemoglobin 29, Mean Corpuscular Hemoglobin Concent 30, Red Cell Distribution Width 16.4, Platelet Count 175, Mean Platelet Volume 9.3, Immature Granulocyte % (Auto) 2, Neutrophils (%) (Auto) 56, Lymphocytes (%) (Auto) 33, Monocytes (%) (Auto) 7, Eosinophils (%) (Auto) 1, Basophils (%) (Auto) 1, Neutrophils # (Auto) 4.5, Lymphocytes # (Auto) 2.7, Monocytes # (Auto) 0.6, Eosinophils # (Auto) 0.1, Basophils # (Auto) 0.0, Immature Granulocyte # (Auto) 0.1 12/23/20 05:20: Sodium Level 141, Potassium Level 4.6, Chloride Level 107, Carbon Dioxide Level 26, Anion Gap 8, Blood Urea Nitrogen 11, Creatinine 0.75, Estimat Glomerular Filtration Rate > 60, BUN/Creatinine Ratio 15, Glucose Level 97, Calcium Level 8.4, Corrected Calcium 9.4, Total Bilirubin 0.3, Aspartate Amino Transf (AST/SGOT) 9, Alanine Aminotransferase (ALT/SGPT) 9, Alkaline Phosphatase 77, Total Protein 5.0, Albumin 2.7 Discharge Home Medications: Active Scripts Active Guaifenesin AC Cough Syrup (Guaifenesin/Codeine Phosphate) 473 Ml Liquid 10 Ml PO Q4H PRN Melatonin 10 Mg Tablet 10 Mg PO HS Finasteride 5 Mg Tablet 5 Mg PO DAILY Folic Acid 1 Mg Tablet 1 Mg PO DAILY Vitamin B-12 (Cyanocobalamin (Vitamin B-12)) 1,000 Mcg Tablet 1,000 Mcg PO DAILY Hemorrhoidal Ointment (Phenyleph/Mineral Oil/Petrolat) 57 Gm Oint.appl 0 Gm KS QID PRN Boudreauxs (Zinc Oxide) 28 Gm Oint 0 Gm TOP NEEDED PRN Phenazopyridine HCl 100 Mg Tablet 100 Mg PO TIDPC Nystatin 15 Gm Cream..g. 0 Gm TP TID Lotrimin AF (Miconazole Nitrate) 90 Gm Powder 0 Gm TOP BID Prednisone 10 Mg Tab 10 Mg PO DAILY@0700 Acidophilus-Pectin Capsule (Lactobacillus Acidophilus/Pect) 1 Each Capsule 1 Each PO BID Pantoprazole Sodium 40 Mg Tablet.dr 40 Mg PO DAILY Ondansetron Odt (Ondansetron) 4 Mg Tab.rapdis 4 Mg PO Q6H PRN Bisacodyl 10 Mg Supp.rect 10 Mg KS DAILY PRN Deep Sea (Sodium Chloride) 44 Ml [place] 0 Ml NA NEEDED PRN [place] Saline Nasal Gel (Sodium Chloride/Aloe Vera) 14.1 Gm Gel..gram. 0 Oz TOP NEEDED PRN Daliresp (Roflumilast) 500 Mcg Tablet 250 Mcg PO DAILY Montelukast Sodium 10 Mg Tablet 10 Mg PO DAILY Advair Hfa 115-21 Mcg Inhaler (Fluticasone/Salmeterol) 12 Gm Hfa.aer.ad 2 Puff IH RTBID Xanax Tablet (Alprazolam) 0.25 Mg Tab 0.25 Mg PO Q8H PRN Mirtazapine 15 Mg Tab.rapdis 30 Mg PO HS Metoprolol Tartrate 25 Mg Tablet 12.5 Mg PO BID Flomax (Tamsulosin HCl) 0.4 Mg Cap 0.4 Mg PO BID Iprat-Albut 0.5-3(2.5) mg/3 ml (Ipratropium/Albuterol Sulfate) 3 Ml Ampul.neb 3 Ml IH RTBID Loratadine 10 Mg Tablet 10 Mg PO DAILY Proair Hfa (Albuterol Sulfate) 1 Puff Puff 2 Puff IH Q4H PRN Eliquis (Apixaban) 5 Mg Tablet 5 Mg PO BID Simvastatin 40 Mg Tablet 40 Mg PO HS Reported Promethazine-Dm Syrup (Promethazine/Dextromethorphan) 473 Ml Syrup 5 Ml PO Q4H Docusate Sodium 100 Mg Tablet 100 Mg PO HS Tylenol (Acetaminophen) 325 Mg Capsule 650 Mg NG Q6H PRN GIVE FOR FEVER GREATER THEN 101.4F Instructions to patient/family Please see electronic discharge instructions given to patient. Diagnosis/Problems Diagnosis/Problems (1) Myopathy (2) COVID-19 (3) Hypoxia (4) Urinary retention (5) Valdes catheter in place (6) BPH (benign prostatic hyperplasia) (7) Bowel incontinence (8) Supplemental oxygen dependent (9) Advanced age (10) Frailty Clinical Quality Measures DVT/VTE Risk/Contraindication: Risk Factor Score Per Nursin RFS Level Per Nursing on Admit: 4+=Very High BARB COLLINS DO Dec 27, 2020 06:11
[2020-12-27 06:16] VITALS: BP 93/51
[2020-12-27] MEDS: predniSONE 10 MG TAB PO SCH (06:33)
[2020-12-27] MEDS: RT-ALBUTEROL/IPRATROPIUM 3 ML (DUONEB) VIAL IH SCH (08:21)
[2020-12-27] MEDS: ADVAIR HFA 115/21 MCG INHALER 8 GM IH SCH (08:22)
[2020-12-27] MEDS: DOCUSATE SODIUM 100 MG (COLACE) CAP PO SCH (09:00)
[2020-12-27] MEDS: SENNA W/DOCUSATE (SENOKOT S) TABLET PO SCH (09:00)
[2020-12-27] MEDS: polyethylene glycoL POWDER 17 GM (MIRALAX) PACK PO SCH (09:00)
[2020-12-27] MEDS: FINASTERIDE (PROSCAR) 5 MG TAB PO SCH (09:09)
[2020-12-27] MEDS: FOLIC ACID 1 MG TAB PO SCH (09:09)
[2020-12-27] MEDS: LORATADINE (CLARITIN) 10 MG TAB PO SCH (09:09)
[2020-12-27] MEDS: CYANOCOBALAMIN 1,000 MCG (VITAMIN B-12) TABLET PO SCH (09:09)
[2020-12-27] MEDS: APIXABAN 5 MG (ELIQUIS) TABLET PO SCH (09:09)
[2020-12-27] MEDS: MONTELUKAST 10 MG (SINGULAIR) TAB PO SCH (09:09)
[2020-12-27] MEDS: LACTOBACILLUS ACIDOPHILUS (PROBIOTIC) CAPSULE PO SCH (09:09)
[2020-12-27] MEDS: PHENAZOPYRIDINE 100 MG (PYRIDIUM) TABLET PO SCH (09:09)
[2020-12-27] MEDS: TAMSULOSIN 0.4 MG (FLOMAX) CAP PO SCH (09:09)
[2020-12-27] MEDS: PANTOPRAZOLE 40 MG (PROTONIX) TAB PO SCH (09:09)
[2020-12-27] MEDS: meTOprolol TARTRATE 25 MG (LOPRESSOR) TABLET PO SCH (09:09)
[2020-12-27] MEDS: MICONAZOLE 2% POWDER (DESENEX AF) 90 GM TOP SCH (09:10)
[2020-12-27] MEDS: NYSTATIN CREAM (MYCOSTATIN) 30 GM TUBE TP SCH (09:10)
[2020-12-27] MEDS: ROFLUMILAST 500 MCG TAB (DALIRESP) PO SCH (09:10)
--- NOTE | 2020-12-27 10:58 | NUR ---
CM/SS DISCHARGE Patient discharging home with his Opal today! HHC: Finalized with [facility] [employer] [facility], [place]. Start of Service date is tomorrow. DME: Added nebulizer to order with [facility]. They delivered all other ordered items to patient's home this a.m., they will partner with his about the nebulizer. Patient very appreciative of all staff and accommodations during his stay here. Opal SPICER is 1300, Unit RN aware.
--- NOTE | 2020-12-27 13:37 | Therapy Team Discharge Summary ---
Therapy Discharge Summary Discharge Recommendations Date of Discharge Physical Therapy Patient came to rehab with debility, covid 19. Upon evaluation patient performed bed mobility with min assist, supine <-> sit mod assist, sit <-> stand max assist, transfers max assist, car transfer max assist, no ambulation, could propel a manual WC 50' with SBA. Patient has been performing bed mobility and transfer training, balance and endurance training, functional strengthening, gait training, and education. 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 Now, patient performs bed mobility and transfers with setup, car transfer with setup, ambulates 200' with a rolling walker with setup (including 50' with at least 2 turns of 90 degrees and 10' over an uneven surface), can propel a manual WC 150' with independence, no stairs. Patient is being discharged from this facility today and will be discharged from PT at this time. Occupational Therapy Decreased Activ Tolerance, Decreased UE Strength PT [facility] Goals Hematology Specialist Goals PT Hematology Specialist Goals Time Frame: Dec 11, 2020 Roll Left to Right (QC): 4 Sit to Lying (QC): 4 Lying-Sitting on Side/Bed(QC): 4 Sit to Stand (QC): 4 Chair/Rwo-ae-Smnop Xfer(QC): 4 Car Transfer (QC): 3 Does the Patient Walk: Yes Walk 10 feet (QC): 3 Walk 10ft-Uneven Surface(QC): 3 Walk 50ft with 2 Turns (QC): 3 Walk 150 ft (QC): 88 Wheel 50 feet with 2 turns (QC: 6 1 Step (curb) (QC): 3 4 Steps (QC): 88 12 Steps (QC): 88 Picking up an Object (QC): 88 OT Hematology Specialist Goals Hematology Specialist Goals Time Frame: Jan 10, 2021 Eating (QC): 6 (met) Oral Hygiene (QC): 6 (met) Shower/Bathe Self (QC): 6 (met) Upper Body Dressing (QC): 6 (met) Lower Body Dressing (QC): 6 (not met) On/Off Footwear (QC): 6 (met) Toileting Hygiene (QC): 6 (not met) Toilet/Commode Transfer (QC): 4 Additional Goals: 1-Demonstrate ADL Tasks, 2-Verbalize Understanding, 3- ImproveStrength/Leti 1=Demonstrate adherence to instructed precautions during ADL tasks. 2=Patient will verbalize/demonstrate understanding of assistive devices/modifications for ADL. 3=Patient will improve strength/tolerance for activity to enable patient to perform ADL's. CULLEN WORTHINGTON PT Dec 27, 2020 13:37
[2020-12-27 13:50] VITALS: BP 93/51
--- NOTE | 2020-12-27 14:32 | Therapy Team Discharge Summary ---
Therapy Discharge Summary Discharge Recommendations Date of Discharge Occupational Therapy Pt admitted to ARU with critical illness myopathy. At [facility], pt was independent with all ADLS and functional mobility, without AD/AE. Upon initial evaluation, pt required set up assistance with oral care, total assist showering, mod A upper body dressing, total assist lower body dressing, total assist toileting, and total assist footwear. OT txs with focus on increasing BUE strength and activity tolerance as well as increasing independence with ADLs and functional mobility. Pt made good progress meeting all but LTGs except lower body dressing and toileting. Pt is independent with eating, oral care, showering, and footwear, requires SBA with lower body dressing and toileting. Pt discharged from facility, thus d/c from OT. Decreased Activ Tolerance, Decreased UE Strength PT Division Manager Goals Division Manager Goals PT Division Manager Goals Time Frame: Dec 11, 2020 Roll Left to Right (QC): 4 Sit to Lying (QC): 4 Lying-Sitting on Side/Bed(QC): 4 Sit to Stand (QC): 4 Chair/Eon-ek-Sybvj Xfer(QC): 4 Car Transfer (QC): 3 Does the Patient Walk: Yes Walk 10 feet (QC): 3 Walk 10ft-Uneven Surface(QC): 3 Walk 50ft with 2 Turns (QC): 3 Walk 150 ft (QC): 88 Wheel 50 feet with 2 turns (QC: 6 1 Step (curb) (QC): 3 4 Steps (QC): 88 12 Steps (QC): 88 Picking up an Object (QC): 88 OT Care Home Goals Division Manager Goals Time Frame: Jan 10, 2021 Eating (QC): 6 (met) Oral Hygiene (QC): 6 (met) Shower/Bathe Self (QC): 6 (met) Upper Body Dressing (QC): 6 (met) Lower Body Dressing (QC): 6 (not met) On/Off Footwear (QC): 6 (met) Toileting Hygiene (QC): 6 (not met) Toilet/Commode Transfer (QC): 4 Additional Goals: 1-Demonstrate ADL Tasks, 2-Verbalize Understanding, 3- ImproveStrength/Leti 1=Demonstrate adherence to instructed precautions during ADL tasks. 2=Patient will verbalize/demonstrate understanding of assistive devices/modifications for ADL. 3=Patient will improve strength/tolerance for activity to enable patient to perform ADL's. BRENDA BLANCO OT Dec 27, 2020 14:32
== END 2020-12-27 13:55 | disposition home health service (06) | DRG 92 ==
PROVIDERS: ADMIT Internal Medicine; ATTEND Internal Medicine
DX: G72.81 Critical illness myopathy (principal); Z16.12 Extended spectrum beta lactamase (ESBL) resistance; B94.8 Sequelae of other specified infectious and parasitic diseases; R09.02 Hypoxemia; N40.1 Benign prostatic hyperplasia with lower urinary tract symptoms; R33.8 Other retention of urine; R15.9 Full incontinence of feces; J43.9 Emphysema, unspecified; I48.0 Paroxysmal atrial fibrillation; I95.9 Hypotension, unspecified; R91.8 Other nonspecific abnormal finding of lung field; I27.20 Pulmonary hypertension, unspecified; G60.9 Hereditary and idiopathic neuropathy, unspecified; K74.60 Unspecified cirrhosis of liver; B35.1 Tinea unguium; L84 Corns and callosities; Z99.81 Dependence on supplemental oxygen; Z87.01 Personal history of pneumonia (recurrent); Z87.891 Personal history of nicotine dependence; Z79.52 Long term (current) use of systemic steroids; Z86.711 Personal history of pulmonary embolism; Z22.322 Carrier or suspected carrier of Methicillin resistant Staphylococcus aureus; Z23 Encounter for immunization
CPT/HCPCS: 36415; 71045; 71260; 76937; 80048; 80053; 82805; 83540; 84443; 85007; 85025; 85027; 86850; 86900; 86901; 86920; 87070; 87077; 87205; 90662; 93005; 93306; 94640; 94760; 94761

== ENCOUNTER → 2020-11-27 | Day surgery (SDC) | payer MEDICARE, OTHER ==
[~2020-11-27] MED LIST: ACET325C7 NG; ALPR.25T PO; APIX5TAB PO; ATOR10TA66 PO; ATOR20TA66 PO; BISA10SU8 PR; CYAN-41 NG; CYAN-41 PO; D-ME473S11 PO; DILT30TA NG; DOCU100T2 PO; DOXA4TAB2 PO; ENOX100D4 SQ; FINA5TAB6 PO; FLUT12AE4 IH; FOLI0.4T2 PO; FOLI1TAB33 PO; FURO20TA4 PO; GUAI473L29 PO; IPRA3AMP31 IH; LACT1CAP7 PO; LACT1CAP76 PO; LORA10TA7 PO; MELA10TA2 PO; MELA5TAB14 PO; METH4TAB10 PO; METO-333 PO; MICO90PO TOP; MIRT-47 PO; MONT10TA97 PO; NYST15CR TP; ONDA4TAB11 PO; PANT40TA2 PO; PANT40TA52 PO; PHEN-826 PO; PHEN177S41 MM; PHEN57OI24 PR; PRD10T PO; ROFL250T NG; ROFL500T PO; RT-ALBUINH IH; SENN-234 PO; SILD20TA PO; SIMV40TA25 PO; SODI0.5GEL TOP; SODI44SP2; TMSL.4C PO; UBID200C31 PO; ZINC28PA TOP
--- NOTE | 2020-12-11 13:33 | OPERATIVE REPORT ---
NAME: JOJO GUZMAN [facility] REC#: [id number] : 1940 LOCATION: [facility] ADMIT DATE: 11/20/20 DATE OF SERVICE: 11/27/2020 PREOPERATIVE DIAGNOSIS: BPH with urinary retention. POSTOPERATIVE DIAGNOSIS: BPH with urinary retention. OPERATION PERFORMED: Cystoscopy. SURGEON: Eddie Ma MD ANESTHESIA: Local. COMPLICATIONS: None. DESCRIPTION OF PROCEDURE: With the patient in supine position in his bed, genitalia were prepped and draped in the usual sterile fashion. Urethra was infiltrated with 2% lidocaine jelly. Penile clamp was applied. This was then removed and a flexible cystoscope was introduced under vision. The anterior urethra was normal. The prostate revealed enlargement of the lateral lobe meeting in the midline causing complete bladder neck obstruction. Bladder was entered, revealed trabeculations, otherwise the beltran were normal and no foreign body, bladder tumor or stone visualized. Ureteric orifices normal with clear efflux. Cystoscopy was confirmed in an antegrade fashion and the cystoscope was removed. The patient tolerated the procedure and anesthesia well, remained in his bed in stable condition. Job ID: [id number] DocumentID: [id number] Dictated Date: 11/27/2020 08:40:22 Applications Packager Date: 11/27/2020 10:13:53 Dictated By: EDDIE MA MD <Dictated by EDDIE MA MD> <Electronically signed by EDDIE MA MD> 11/27/20 1021 MTDD
== END ==
LOC: SDC 08:02
PROVIDERS: ATTEND Urology
DX: N40.1 Benign prostatic hyperplasia with lower urinary tract symptoms (principal); R33.8 Other retention of urine; Z91.038 Other insect allergy status

== ENCOUNTER 2020-12-11 05:54 | Day surgery (SDC) | payer MEDICARE ==
[2020-12-11] VITALS (14 sets, daily range): BP systolic 83–119; BP diastolic 57–78
[~2020-12-11] VITALS: Ht 185.4 cm; Wt 81.6 kg
[~2020-12-11 05:54] MED LIST changes: -ALPR.25T PO; -BISA10SU8 PR; -CYAN-41 PO; -FINA5TAB6 PO; -FLUT12AE4 IH; -FOLI1TAB33 PO; -GUAI473L29 PO; -LACT1CAP7 PO; -LORA10TA7 PO; -MELA10TA2 PO; -METO-333 PO; -MICO90PO TOP; -MIRT-47 PO; -MONT10TA97 PO; -NYST15CR TP; -ONDA4TAB11 PO; -PANT40TA52 PO; -PHEN-826 PO; -PHEN57OI24 PR; -ROFL500T PO; -SODI0.5GEL TOP; -SODI44SP2; -TMSL.4C PO; -ZINC28PA TOP
[2020-12-11] MEDS ORDERED: fentaNYL INJECTION 100 MCG/2 ML AMP ONE (07:16)
--- NOTE | 2020-12-11 07:20 | Progress Note-Pre Operative ---
Pre-Operative Progress Note H&P Reviewed The H&P was reviewed, patient examined and no changes noted. Date Seen by Provider: Dec 11, 2020 Time Seen by Provider: 07:20 Date H&P Reviewed: Dec 11, 2020 Time H&P Reviewed: 07:20 Pre-Operative Diagnosis: BPH AND URINE RETENTION DENTON MA MD Dec 11, 2020 07:20
--- NOTE | 2020-12-11 07:21 | Progress Note-Post Operative ---
Post-Operative Progess Note Surgeon (s)/Mastic Sprayer (s) Surgeon DENTON MA MD Mastic Sprayer: NONE Pre-Operative Diagnosis BPH AND URINE RETENTION Post-Operative Diagnosis SAME Procedure & Operative Findings Date of Procedure 12/11/20 Procedure Performed/Findings TURP Anesthesia Type SPINAL Estimated Blood Loss Estimated blood loss (mL): 250cc Specimens/Packing Specimens Removed PROSTATE CHIPS Packing: NONE DENTON MA MD Dec 11, 2020 07:21
[2020-12-11] MEDS ORDERED: ONDANSETRON 4 MG/2 ML (SDV) Z0FRAN ONE (07:29)
[2020-12-11] MEDS ORDERED: MILK OF MAGNESIA 400 MG/5 ML 30 ML UDC PO PRN (07:30)
[2020-12-11] MEDS ORDERED: HYDROcodone/APAP 10 MG/325 MG (LORTAB) TAB PO PRN (07:30)
[2020-12-11] MEDS: LACTATED RINGERS 1,000 ML IV PRN ×2 (07:34→08:35)
[2020-12-11] MEDS ORDERED: LEVOFLOXACIN 500 MG/100 ML IV 100 ML ONE (07:35)
[2020-12-11] MEDS ORDERED: MIDAZOLAM 2 MG/2 ML (VERSED) VIAL ONE (07:58)
[2020-12-11] MEDS ORDERED: HYDROmorphone 2 MG/ML VIAL (DILAUDID) IV ONE (09:45)
[2020-12-11] MEDS ORDERED: ONDANSETRON 4 MG/2 ML (SDV) Z0FRAN IVP PRN (09:45)
[2020-12-11 10:16] LABS: BASOPHILS % (AUTO) 0 % (0-10); EOSINOPHILS # (AUTO) 0.1 10^3/uL (0.0-0.3); EOSINOPHILS % (AUTO) 1 % (0-10); HEMATOCRIT 35 % (40-54); HEMOGLOBIN 11.1 g/dL (13.3-17.7); LYMPHOCYTES # (AUTO) 1.7 10^3/uL (1.0-4.0); LYMPHOCYTES % (AUTO) 18 % (12-44); MEAN CORPUSCULAR HEMOGLOBIN 30 pg (25-34); MEAN CORPUSCULAR HGB CONC 31 g/dL (32-36); MEAN CORPUSCULAR VOLUME 95 fL (80-99); MEAN PLATELET VOLUME 8.8 fL (9.0-12.2); MONOCYTES # (AUTO) 0.6 10^3/uL (0.0-1.0); MONOCYTES % (AUTO) 6 % (0-12); NEUTROPHILS # (AUTO) 6.8 10^3/uL (1.8-7.8); NEUTROPHILS % (AUTO) 72 % (42-75); PLATELET COUNT 246 10^3/uL (130-400); WHITE BLOOD COUNT 9.5 10^3/uL (4.3-11.0)
[2020-12-11 10:29] LABS: CHLORIDE 101 MMOL/L (98-107); POTASSIUM 4.7 MMOL/L (3.6-5.0); SODIUM 134 MMOL/L (135-145)
[2020-12-11 10:30] LABS: CALCIUM 8.5 MG/DL (8.5-10.1)
[2020-12-11 10:31] LABS: GLUCOSE 108 MG/DL (70-105)
[2020-12-11 10:32] LABS: CARBON DIOXIDE 26 MMOL/L (21-32)
[2020-12-11 10:34] LABS: CREATININE SERUM 0.65 MG/DL (0.60-1.30); GFR ESTIMATED > 60
[2020-12-11 10:35] LABS: BUN/CREATININE RATIO 22
[2020-12-11] MEDS: LACTATED RINGERS 1,000 ML IV SCH ×4 (10:41→22:26)
[2020-12-11] MEDS: DOCUSATE SODIUM 100 MG (COLACE) CAP PO SCH ×2 (10:42→20:25)
--- NOTE | 2020-12-11 11:05 | Progress Note ---
Subjective Date Seen by a Provider: Dec 11, 2020 Time Seen by a Provider: 10:00 Subjective/Events-last exam Pt doing pretty well Had an uncomplicated TURP by Dr. Marsh I did confer with Dr. Marsh personally Remains with a catheter IV fluids maintained Overall feels really good Pain is well controlled Objective Exam Last Set of Vital Signs Vital Signs Date Time Temp Pulse Resp B/P (MAP) Pulse Ox O2 Delivery O2 Flow Rate FiO2 12/11/20 10:15 35.6 84 20 115/74 (88) 98 Room Air 12/11/20 09:45 5 Capillary Refill : Less Than 3 Seconds General: Alert, Oriented X3, Cooperative, No Acute Distress Lungs: Clear to Auscultation, Normal Air Movement Heart: Regular Rate, Normal S1, Normal S2, No Murmurs Results Lab Laboratory Tests 12/11/20 10:06: White Blood Count 9.5, Red Blood Count 3.73L, Hemoglobin 11.1#L, Hematocrit 35L, Mean Corpuscular Volume 95, Mean Corpuscular Hemoglobin 30, Mean Corpuscular Hemoglobin Concent 31L, Red Cell Distribution Width 16.6H, Platelet Count 246, Mean Platelet Volume 8.8L, Immature Granulocyte % (Auto) 3, Neutrophils (%) (Auto) 72, Lymphocytes (%) (Auto) 18, Monocytes (%) (Auto) 6, Eosinophils (%) (Auto) 1, Basophils (%) (Auto) 0, Neutrophils # (Auto) 6.8, Lymphocytes # (Auto) 1.7, Monocytes # (Auto) 0.6, Eosinophils # (Auto) 0.1, Basophils # (Auto) 0.0, Immature Granulocyte # (Auto) 0.3H, Sodium Level 134L, Potassium Level 4.7, Chloride Level 101, Carbon Dioxide Level 26, Anion Gap 7, Blood Urea Nitrogen 14, Creatinine 0.65, Estimat Glomerular Filtration Rate > 60, BUN/Creatinine Ratio 22, Glucose Level 108H, Calcium Level 8.5 Assessment/Plan Assessment/Plan Assess & Plan/Chief Complaint Assessment: s/p TURP Severely enlarged prostate Urinary retention COVID-19 PNA with hypoxia Plan: Catheter Pain control Move back to IRF tomorrow BARB COLLINS DO Dec 11, 2020 11:05
--- NOTE | 2020-12-11 14:14 | OPERATIVE REPORT ---
DATE OF SERVICE: 12/11/2020 PREOPERATIVE DIAGNOSIS: Benign prostatic hypertrophy with urinary retention. POSTOPERATIVE DIAGNOSIS: Benign prostatic hyperplasia with urinary retention. OPERATION PERFORMED: Transurethral resection of the prostate. SURGEON: Denton Ma MD ANESTHESIA: Spinal. COMPLICATIONS: None. DESCRIPTION OF PROCEDURE: Under satisfactory spinal anesthesia, the patient in lithotomy position, genitalia were prepped and draped in the usual sterile fashion. Urethra was dilated with Katia sound to #30 Tristanian easily to accommodate a 28-Tristanian Cm resectoscope. The prostate was seemed to be quite enlarged and looks pretty vascular. I went ahead and first resected the prostate circumferentially to open the bladder neck and then I resected the right lateral lobe from 1 to 6 o'clock position at the roof and apical tissue, as I said, prostate was very vascular and there was quite a bit of bleeding and approaching an hour of resection. I could not do the other lobe; however, the bladder neck was opened, as I said, I did not want to pursue further and cause more bleeding and absorption of fluid to pass over the one hour resection time and hoping that he will pass urine okay with one side opened along with the doxazosin. The prostatic chips were evacuated. Cystoscopy confirmed intact ureteric orifices, veru and sphincter with good reflex. I removed the resectoscope, inserted a 22-Tristanian 3-way 30 mL balloon catheter. Inflated the balloon to 40 mL, connected to continuous bladder irrigation, put on some traction the return of which was pinkish. Estimated blood loss was 250 mL, none of which was replaced. The patient tolerated the procedure and anesthesia well and was sent to recovery room in stable condition after I talked to him and explained to him what the intraoperative finding and then also to his on the phone. Job ID: [id number] DocumentID: [id number] Dictated Date: 12/11/2020 09:36:04 Lead Producer Date: 12/11/2020 14:13:53 Dictated By: DENTON MA MD
--- NOTE | 2020-12-11 14:25 | Anesthesia-Regional Post-Op ---
Regional Patient Condition Mental Status: Alert, Oriented x3 Circulation: Same as Pre-Op Headache: Absent Sensation: Full Recovery Motor Block: Absent Post Op Complications Complications None Follow Up Care/Instructions Patient Instructions None needed. Anesthesia/Patient Condition Patient is doing well, no complaints, stable vital signs, no apparent adverse anesthesia problems. No complications reported per nursing. D/C home per [facility] Criteria: No ANDRES VAZQUEZ CRNA Dec 11, 2020 14:25
--- NOTE | 2020-12-11 22:07 | NUR ---
DR. COLLINS NOTIFIED OF PT REQUESTING HIS NIGHT TIME MEDS OF MELATONIN AND REMERON. NEW ORDERS RECEIVED TO RESTART MELATONIN 10MG PO AT HS AND REMERON 30MG PO AT HS.
[2020-12-11] MEDS ORDERED: MELATONIN 3 MG TABLET PO SCH (22:15)
[2020-12-11] MEDS ORDERED: MIRTAZAPINE 15 MG (REMERON) TAB PO SCH (22:15)
[2020-12-12] MEDS: BELLADONNA ALK/OPIUM (B & O) 30 MG SUPP PR PRN ×2 (02:01→06:03)
[2020-12-12 04:00] VITALS: BP 110/61
[2020-12-12] MEDS: LACTATED RINGERS 1,000 ML IV SCH ×3 (06:14→08:05)
[2020-12-12 06:40] LABS: BASOPHILS % (AUTO) 0 % (0-10); EOSINOPHILS % (AUTO) 0 % (0-10); HEMATOCRIT 32 % (40-54); HEMOGLOBIN 10.2 g/dL (13.3-17.7); LYMPHOCYTES % (AUTO) 20 % (12-44); MEAN CORPUSCULAR HEMOGLOBIN 30 pg (25-34); MEAN CORPUSCULAR HGB CONC 32 g/dL (32-36); MEAN CORPUSCULAR VOLUME 94 fL (80-99); MEAN PLATELET VOLUME 8.9 fL (9.0-12.2); MONOCYTES # (AUTO) 0.6 10^3/uL (0.0-1.0); MONOCYTES % (AUTO) 6 % (0-12); NEUTROPHILS # (AUTO) 7.4 10^3/uL (1.8-7.8); NEUTROPHILS % (AUTO) 72 % (42-75); PLATELET COUNT 262 10^3/uL (130-400); WHITE BLOOD COUNT 10.2 10^3/uL (4.3-11.0)
[2020-12-12 06:49] LABS: CHLORIDE 106 MMOL/L (98-107); POTASSIUM 4.2 MMOL/L (3.6-5.0); SODIUM 139 MMOL/L (135-145)
[2020-12-12 06:50] LABS: CALCIUM 8.7 MG/DL (8.5-10.1); GLUCOSE 97 MG/DL (70-105)
[2020-12-12 06:52] LABS: CARBON DIOXIDE 24 MMOL/L (21-32)
[2020-12-12 06:54] LABS: CREATININE SERUM 0.68 MG/DL (0.60-1.30); GFR ESTIMATED > 60
[2020-12-12 06:55] LABS: BUN/CREATININE RATIO 34
[2020-12-12] MEDS ORDERED: LEVOFLOXACIN 500 MG/100 ML IV 100 ML IV ONE (07:30)
[2020-12-12 07:45] VITALS: BP 117/71
[2020-12-12] MEDS ORDERED: LEVOFLOXACIN 500 MG/100 ML IV 100 ML ONE (07:57)
[2020-12-12] MEDS: DOCUSATE SODIUM 100 MG (COLACE) CAP PO SCH (08:04)
[2020-12-12] MEDS ORDERED: LEVOFLOXACIN 500 MG/100 ML IV 100 ML IV SCH (09:00)
--- NOTE | 2020-12-12 09:13 | Cardiology Progress Note ---
Subjective Date Seen by Provider: Dec 12, 2020 Time Seen by Provider: 09:55 Subjective/Events-last exam patient was seen at bedside laying down comfortably, has a mild discomfort, still having hematuria Review of Systems General: No Chills, No Night Sweats, No Fatigue, No Malaise, No Appetite, No Other HEENT: No Head Aches, No Visual Changes, No Eye Pain, No Ear Pain, No Dysphasia, No Sinus Congestion, No Post Nasal Drip, No Sore Throat, No Other Pulmonary: No Dyspnea, No Cough, No Pleuritic Chest Pain, No Other Cardiovascular: No: Chest Pain, Palpitations, Orthopnea, Paroxysmal Noc. Dyspnea, Edema, Lt Headedness, Other Objective-Cardiology Exam Last Set of Vital Signs Vital Signs 12/12/20 12/12/20 07:45 08:38 Temp 36.5 Pulse 99 Resp 22 B/P (MAP) 117/71 (86) Pulse Ox 93 O2 Delivery Room Air Capillary Refill : Less Than 3 Seconds I&O Intake and Output 12/12/20 00:00 Intake Total 3730 ml Output Total 7825 ml Balance -4095 ml Intake Oral 630 ml IV Total 3100 ml Output Urine Total 2725 ml Other 5100 ml General: Alert, Oriented X3, Cooperative, No Acute Distress HEENT: Atraumatic Neck: Supple Lungs: Clear to Auscultation, Normal Air Movement Heart: Regular Rate, Normal S1, Normal S2, No Murmurs Extremities: No Clubbing, No Cyanosis Skin: No Rashes Neuro: Normal Speech Psych/Mental Status: Mental Status NL Results Lab Laboratory Tests 12/11/20 10:06 12/12/20 06:14 A/P-Cardiology Admission Diagnosis PAF Myopathy Hypotension Urinary retention Assessment/Plan PAF, currently sinus rhythm, Eliquis on hold after TURP yesterday. 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 Diuretics stopped on 11/21/20. Sildenafil reduced on 11/23/20 and stopped on 11/25/20. Blood pressure well controlled this morning. Urinary retention, s/p TURP with Dr. Marsh +MRSA in sputum Patient was seen and evaluated with Brenda, examination performed, management plan was discussed, agree with the current scribed note, I made few changes to the note using Italic font Patient is still having some pain and discomfort, having hematuria, oral anticoagulation are on hold Continue to monitor blood pressure and lipids. No changes are recommended BRENDA MARCIAL Dec 12, 2020 09:13 GIANCARLO BROWN MD Dec 12, 2020 09:58
[2020-12-12 11:45] VITALS: BP 107/75
--- NOTE | 2020-12-12 11:49 | Progress Note - Urology ---
Progress Note-Urology Progress Notes/Assess & Plan Progress/Assessment & Plan AFEBRILE, VSS. NO COMPLAINTS. URINE CLEAR ON VERY SLOW DRIP. NO ABDOMINAL PAIN OR TENDERNESS. LABS STABLE. TRANSFER TO ARU. Final Diagnosis URINE RETENTION DENTON MA MD Dec 12, 2020 11:49
--- NOTE | 2020-12-12 13:34 | NUR ---
HYDROCODONE PO FOR PAIN.
--- NOTE | 2020-12-12 14:00 | NUR ---
TO INPATIENT REHAB PER BED WITH PT. REPORT TO ONEIL ODELL.
[2020-12-13] MEDS ORDERED: LEVOFLOXACIN 500 MG TAB (LEVAQUIN) PO SCH (11:00)
== END 2020-12-12 14:00 ==
LOC: SDC 05:54 → 4TH 10:24 → SDC 12-12 14:00
PROVIDERS: ATTEND Urology
DX: N40.1 Benign prostatic hyperplasia with lower urinary tract symptoms (principal); R33.9 Retention of urine, unspecified; Z91.038 Other insect allergy status; I48.91 Unspecified atrial fibrillation; G62.9 Polyneuropathy, unspecified; Z79.899 Other long term (current) drug therapy
CPT/HCPCS: 36415; 80048; 85025; 88305